=== PATIENT | male | born 1950 | race Caucasian/White ===

== ENCOUNTER → 2017-02-12 | Outpatient (CLI) | payer MEDICARE, OTHER ==
--- NOTE | 2017-02-12 10:36 | XR ---
EXAMINATION TYPE: XR hand complete LT DATE OF EXAM: 02/12/2017 CLINICAL HISTORY: Palmar left hand pain with no known injury. TECHNIQUE: Frontal, lateral and oblique images of the left hand are obtained. COMPARISON: None. FINDINGS: There is no acute fracture/dislocation evident in the left hand. Mild bony productive david ge demonstrated as marginal osteophytes, joint space narrowing and opposing surface sclerosis are see n of the distal interphalangeal joints and first metacarpal phalangeal joint. No erosive changes are appreciated. No erosion of the radial styloid to indicate rheumatoid arthritis. No calcification of t he triangular fibrocartilage. The overlying soft tissue appears unremarkable. IMPRESSION: 1. There is no acute fracture or dislocation in the left hand. 2. 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
== END | disposition home or self-care (01) ==
LOC: RADXRYALE 09:59
PROVIDERS: ATTEND Physician Assistant Medical
DX: M79.642 Pain in left hand (principal)

== ENCOUNTER → 2017-04-23 | Outpatient (CLI) | payer MEDICARE, OTHER ==
--- NOTE | 2017-04-23 11:24 | XR ---
EXAMINATION TYPE: XR shoulder complete LT DATE OF EXAM: 04/23/2017 CLINICAL HISTORY: Shoulder pain after fall on ice 6 weeks ago TECHNIQUE: Three views of the left shoulder are obtained. COMPARISON: None. FINDINGS: There is no acute fracture/dislocation evident in the left shoulder. The acromioclavicula r and glenohumeral joint spaces appear within normal limits. The visualized ribs are intact and unre markable. Mild left acromioclavicular arthropathy is noted as small marginal osteophytes. IMPRESSION: 1. No acute fracture or dislocation in the left shoulder. If pain persists MRI could be performed to evaluate the rotator cuff. 2. Mild left acromioclavicular arthropathy.
== END | disposition home or self-care (01) ==
LOC: RADXRYALE 09:49
PROVIDERS: ATTEND Physician Assistant Medical
DX: M12.812 Other specific arthropathies, not elsewhere classified, left shoulder (principal)

== ENCOUNTER → 2017-08-27 | Outpatient (CLI) | payer MEDICARE, OTHER ==
--- NOTE | 2017-08-27 14:03 | US ---
EXAMINATION TYPE: US venous doppler duplex LE RT DATE OF EXAM: 08/27/2017 1:50 PM COMPARISON: NONE CLINICAL HISTORY: M79.604 Pain in right leg,R60.9 Edema. SIDE PERFORMED: Right TECHNIQUE: The lower extremity deep venous system is examined utilizing real time linear array sonog elmer with graded compression, doppler sonography and color-flow sonography. VESSELS IMAGED: External Iliac Vein (EIV) Common Femoral Vein Deep Femoral Vein Greater Saphenous Vein * Femoral Vein Popliteal Vein Small Saphenous Vein * Proximal Calf Veins (* superficial vessels) Grayscale, color doppler, spectral doppler imaging performed of the deep veins of the lower extremity . There is normal flow, compressibility, vascular waveforms. Right Leg: Negative for DVT Negative result called to Mya in office as 1350 as per order. IMPRESSION: No evidence for DVT at this time.
== END | disposition home or self-care (01) ==
LOC: RADUSWWP 13:23
PROVIDERS: ATTEND Family Medicine
DX: M79.604 Pain in right leg (principal); R60.9 Edema, unspecified

== ENCOUNTER → 2018-07-22 | Outpatient (CLI) | payer MEDICARE, OTHER ==
--- NOTE | 2018-07-22 16:17 | XR ---
EXAMINATION TYPE: XR Hip Complete RT DATE OF EXAM: 07/22/2018 COMPARISON: 09/13/2011 HISTORY: Right hip pain fall 3 weeks prior TECHNIQUE: 2 view right hip FINDINGS: Some joint space narrowing is present. No acute fractures are evident. Femoral head articul ates with the acetabulum. IMPRESSION: 1. No fracture right hip.
== END | disposition home or self-care (01) ==
LOC: RADXRYALE 09:55
PROVIDERS: ATTEND Physician Assistant Medical
DX: M25.551 Pain in right hip (principal)
CPT/HCPCS: 73502

== ENCOUNTER → 2019-09-29 | Outpatient (CLI) | payer MEDICARE, OTHER ==
--- NOTE | 2019-09-29 09:49 | XR ---
EXAMINATION TYPE: XR tibia fibula RT DATE OF EXAM: 09/29/2019 CLINICAL HISTORY: pain TECHNIQUE: AP and lateral images of the right tibia and fibula are obtained. COMPARISON: None. FINDINGS: There is no acute fracture/dislocation evident. The joint spaces appear within normal gaines its. The overlying soft tissue appears unremarkable. IMPRESSION: There is no acute fracture or dislocation seen. ICD 10 NO FRACTURE, INITIAL EVALUATION
== END | disposition home or self-care (01) ==
LOC: RADXRYALE 08:58
PROVIDERS: ATTEND Physician Assistant Medical
DX: S80.921A Unspecified superficial injury of right lower leg, initial encounter (principal); S81.801A Unspecified open wound, right lower leg, initial encounter

== ENCOUNTER 2020-05-26 18:31 | Inpatient (IN) | payer MEDICARE, OTHER ==
[2020-05-26] MEDS ORDERED: SODIUM CHLORIDE 0.9% 1,000 ML IV STA (19:08)
--- NOTE | 2020-05-26 19:16 | ED ---
General Adult HPI - General Chief complaint: Abdominal Pain Stated complaint: Altered, Male Gu Time Seen by Provider: 05/26/20 18:50 Source: patient, family, RN notes reviewed, old records reviewed Mode of arrival: wheelchair Limitations: no limitations - History of Present Illness Initial comments: 69-year-old male presenting for evaluation of dysuria, urinary frequency. Patient was started on Macrobid on Friday of this week. He's continued to h ave flank pain, subjective fever and chills. He's had urinary frequency and urgency as well as dysuria for the past several weeks. She feels that she can't completely empty his bladder. Denies vomiting. Denies measured fever. - Related Data Allergies Allergy/AdvReac Type Severity Reaction Status Date / Time Sulfa (Sulfonamide Allergy Unknown Verified 05/26/20 18:49 Antibiotics) Review of Systems ROS Statement: Those systems with pertinent positive or pertinent negative responses have been documented in the HPI. ROS Other: All systems not noted in ROS Statement are negative. Past Medical History Past Medical History: Coronary Artery Disease (CAD), Diabetes Mellitus, Hyperlipidemia, Hypertension, Myocardial Infarction (HI) History of Any Multi-Drug Resistant Organisms: None Reported Past Surgical History: Heart Catheterization Past Psychological History: No Psychological Hx Reported Smoking Status: Former smoker Past Alcohol Use History: None Reported Past Drug Use History: None Reported General Exam Limitations: no limitations General appearance: alert, in no apparent distress Head exam: Present: atraumatic, normocephalic Eye exam: Present: normal appearance ENT exam: Present: normal exam Neck exam: Present: normal inspection. Absent: tenderness, meningismus Respiratory exam: Present: normal lung sounds bilaterally. Absent: respiratory distress, wheezes Cardiovascular Exam: Present: regular rate, normal rhythm GI/Abdominal exam: Present: soft, distended. Absent: tenderness, guarding Extremities exam: Present: normal inspection, normal capillary refill. Absent: pedal edema Back exam: Present: CVA tenderness (R) Neurological exam: Present: alert, oriented X3, CN II-XII intact. Absent: motor sensory deficit Psychiatric exam: Present: normal affect, normal mood Skin exam: Present: warm, dry, intact. Absent: cyanosis, diaphoretic Course Vital Signs 05/26/20 18:43 Temperature 98.9 F Pulse Rate 96 Respiratory 20 Rate Blood Pressure 127/80 O2 Sat by Pulse 96 Oximetry Medical Decision Making - Medical Decision Making 69-year-old male with chief complaint of dysuria, urinary frequency and urgency. Patient is retaining urine with a bladder scan of the x-ray 500 mL. He's had some flank pain as well as subjective fever and chills. Laboratory studies and urinalysis are obtained. Patient is started on normal saline. He has normal CBC, his get significant L abnormalities including a sodium 114 which I suspect is pseudohyponatremia secondary to elevated blood glucose level which is 1298. He is mildly hyperkalemic at 5.6. He has a creatinine of 2.0. Mild lactic acid of 2.5. Urinalysis consistent with UTI. He started on Rocephin awaiting culture results. He's given IV fluid and started on IV insulin. He will be admitted to the ICU. Case discussed with Amelie hernandez for [facility] hospitalists and with Dr. Carlos hernandez for the ICU. - Lab Data Result diagrams: 05/26/20 19:18 05/26/20 19:18 Lab Results 05/26/20 05/26/20 05/26/20 Range/Units 19:01 19:18 19:18 WBC 10.0 (3.8-10.6) k/uL RBC 4.89 (4.30-5.90) m/uL Hgb 15.6 (13.0-17.5) gm/dL Hct 50.2 (39.0-53.0) % MCV 102.6 H (80.0-100.0) fL MCH 32.0 (25.0-35.0) pg MCHC 31.2 (31.0-37.0) g/dL RDW 12.3 (11.5-15.5) % Plt Count 289 (150-450) k/uL MPV 8.6 Neutrophils % 81 % Lymphocytes % 7 % Monocytes % 9 % Eosinophils % 0 % Basophils % 1 % Neutrophils # 8.1 H (1.3-7.7) k/uL Lymphocytes # 0.7 L (1.0-4.8) k/uL Monocytes # 0.9 (0-1.0) k/uL Eosinophils # 0.0 (0-0.7) k/uL Basophils # 0.1 (0-0.2) k/uL Hypochromasia Slight Macrocytosis Slight Sodium 114 L* (137-145) mmol/L Potassium 5.6 H (3.5-5.1) mmol/L Chloride 76 L (98-107) mmol/L Carbon Dioxide 27 (22-30) mmol/L Anion Gap 11 mmol/L BUN 31 H (9-20) mg/dL Creatinine 2.00 H (0.66-1.25) mg/dL Est GFR (CKD-EPI)AfAm 39 (>60 ml/min/1.73 sqM) Est GFR (CKD-EPI)NonAf 34 (>60 ml/min/1.73 sqM) Glucose 1298 H* (74-99) mg/dL Plasma Lactic Acid Lambert (0.7-2.0) mmol/L Calcium 9.3 (8.4-10.2) mg/dL Total Bilirubin 1.0 (0.2-1.3) mg/dL AST 20 (17-59) U/L ALT 25 (4-49) U/L Alkaline Phosphatase 125 (38-126) U/L Total Protein 6.1 L (6.3-8.2) g/dL Albumin 3.2 L (3.5-5.0) g/dL Urine Color Colorless Urine Appearance Cloudy (Clear) Urine pH 6.5 (5.0-8.0) Ur Specific Flushing 1.017 (1.001-1.035) Urine Protein Trace H (Negative) Urine Glucose (UA) 4+ H (Negative) Urine Ketones Negative (Negative) Urine Blood Moderate H (Negative) Urine Nitrite Negative (Negative) Urine Bilirubin Negative (Negative) Urine Urobilinogen <2.0 (<2.0) mg/dL Ur Leukocyte Esterase Large H (Negative) Urine RBC 4 (0-5) /hpf Urine WBC >182 H (0-5) /hpf Urine WBC Clumps Moderate H (None) /hpf Urine Bacteria Rare H (None) /hpf Urine Mucus Rare H (None) /hpf Urine Yeast (Budding) Occasional H (None) /hpf 05/26/20 Range/Units 19:18 WBC (3.8-10.6) k/uL RBC (4.30-5.90) m/uL Hgb (13.0-17.5) gm/dL Hct (39.0-53.0) % MCV (80.0-100.0) fL MCH (25.0-35.0) pg MCHC (31.0-37.0) g/dL RDW (11.5-15.5) % Plt Count (150-450) k/uL MPV Neutrophils % % Lymphocytes % % Monocytes % % Eosinophils % % Basophils % % Neutrophils # (1.3-7.7) k/uL Lymphocytes # (1.0-4.8) k/uL Monocytes # (0-1.0) k/uL Eosinophils # (0-0.7) k/uL Basophils # (0-0.2) k/uL Hypochromasia Macrocytosis Sodium (137-145) mmol/L Potassium (3.5-5.1) mmol/L Chloride (98-107) mmol/L Carbon Dioxide (22-30) mmol/L Anion Gap mmol/L BUN (9-20) mg/dL Creatinine (0.66-1.25) mg/dL Est GFR (CKD-EPI)AfAm (>60 ml/min/1.73 sqM) Est GFR (CKD-EPI)NonAf (>60 ml/min/1.73 sqM) Glucose (74-99) mg/dL Plasma Lactic Acid Lambert 2.5 H* (0.7-2.0) mmol/L Calcium (8.4-10.2) mg/dL Total Bilirubin (0.2-1.3) mg/dL AST (17-59) U/L ALT (4-49) U/L Alkaline Phosphatase (38-126) U/L Total Protein (6.3-8.2) g/dL Albumin (3.5-5.0) g/dL Urine Color Urine Appearance (Clear) Urine pH (5.0-8.0) Ur Specific Flushing (1.001-1.035) Urine Protein (Negative) Urine Glucose (UA) (Negative) Urine Ketones (Negative) Urine Blood (Negative) Urine Nitrite (Negative) Urine Bilirubin (Negative) Urine Urobilinogen (<2.0) mg/dL Ur Leukocyte Esterase (Negative) Urine RBC (0-5) /hpf Urine WBC (0-5) /hpf Urine WBC Clumps (None) /hpf Urine Bacteria (None) /hpf Urine Mucus (None) /hpf Urine Yeast (Budding) (None) /hpf Critical Care Time Critical Care Time: Yes Total Critical Care Time: 35 Disposition Clinical Impression: Hyperglycemia, Hyponatremia, Acute kidney injury, UTI (urinary tract infection) Disposition: ADMITTED IP TO THIS [facility] Condition: Stable Is patient prescribed a controlled substance at d/c from ED?: No Referrals: Gabriel Boyle DO [Primary Care Provider] - 1-2 days Decision to Admit Reason: Admit from EC Decision Date: 05/26/20 Decision Time: 20:34
[2020-05-26 19:19] LABS: Appearance,Urine Cloudy (Clear); Bacteria,Urine Rare /hpf; Bilirubin,Urine Negative (Negative); Blood,Urine Moderate (Negative); Budding Yeast,Urine Occasional /hpf; Color,Urine Colorless; Glucose,Urine (UA) 4+ (Negative); Ketones,Urine Negative (Negative); Leukocyte Esterase,Urine Large (Negative); Mucus,Urine Rare /hpf; Nitrite,Urine Negative (Negative); PH, Urine 6.5 (5.0-8.0); Protein,Urine Trace (Negative); RBC,Urine 4 /hpf (0-5); Specific Gravity,Urine 1.017 (1.001-1.035); Urobilinogen,Urine <2.0 mg/dL (<2.0); WBC,Urine >182 /hpf (0-5)
[2020-05-26 19:30] LABS: Basophils # (A) 0.1 k/uL (0-0.2); Basophils % (A) 1 %; Eosinophils % (A) 0 %; HCT 50.2 % (39.0-53.0); HGB 15.6 gm/dL (13.0-17.5); Hypochromasia Slight; Lymphocytes # (A) 0.7 k/uL (1.0-4.8); Lymphocytes % (A) 7 %; MCHC 31.2 g/dL (31.0-37.0); MCV 102.6 fL (80.0-100.0); Macrocytosis Slight; Mean Platelet Volume 8.6; Monocytes # (A) 0.9 k/uL (0-1.0); Monocytes % (A) 9 %; Neutrophils # (A) 8.1 k/uL (1.3-7.7); Neutrophils % (A) 81 %; Platelet Count 289 k/uL (150-450); RBC 4.89 m/uL (4.30-5.90); RDW 12.3 % (11.5-15.5)
[2020-05-26 19:42] LABS: Albumin 3.2 g/dL (3.5-5.0); Calcium 9.3 mg/dL (8.4-10.2); Potassium 5.6 mmol/L (3.5-5.1); Total Protein 6.1 g/dL (6.3-8.2)
[2020-05-26] MEDS ORDERED: cefTRIAXone IN SWFI 1,000 MG/10 ML SYRINGE IVP STA (20:19)
[2020-05-26] MEDS ORDERED: INSULIN REGULAR BOLUS (FROM DRIP BAG) IV ONE (20:30)
[2020-05-26 21:02] LABS: Glucose,Whole Blood >600 mg/dL (75-99)
[2020-05-26] MEDS: INSULIN REGULAR 100 UNIT in SODIUM CHLORIDE 0.9% 100 ML IV SCH (21:03)
[2020-05-26] MEDS: SODIUM CHLORIDE 0.9% 1,000 ML IV SCH (21:03)
[2020-05-26 22:10] LABS: Glucose,Whole Blood >600 mg/dL (75-99)
[2020-05-26] MEDS ORDERED: NALOXONE 0.4 MG/ML 1 ML VIAL IV PRN (23:13)
[2020-05-27 00:27] LABS: Phosphorus 3.6 mg/dL (2.5-4.5); Potassium 4.7 mmol/L (3.5-5.1)
[2020-05-27 02:00] LABS: Glucose,Whole Blood 298 mg/dL (75-99)
[2020-05-27] MEDS ORDERED: Potassium Replacement Protocol 1 EACH MISC MISCELLANE PRN (02:19)
[2020-05-27] MEDS ORDERED: Magnesium Replacement Protocol 1 EACH MISC MISCELLANE PRN (02:19)
[2020-05-27] MEDS ORDERED: D5-0.45% NACL WITH KCL 20MEQ/L 1,000 ML IV SCH (02:30)
[2020-05-27 03:13] LABS: Glucose,Whole Blood 217 mg/dL (75-99)
[2020-05-27 03:45] LABS: Phosphorus 3.5 mg/dL (2.5-4.5); Potassium 4.2 mmol/L (3.5-5.1)
[2020-05-27 04:17] LABS: Glucose,Whole Blood 182 mg/dL (75-99)
[2020-05-27 05:16] LABS: Glucose,Whole Blood 210 mg/dL (75-99)
[2020-05-27 05:51] LABS: Basophils # (A) 0.1 k/uL (0-0.2); Basophils % (A) 1 %; Eosinophils # (A) 0.1 k/uL (0-0.7); Eosinophils % (A) 1 %; HCT 43.8 % (39.0-53.0); HGB 14.9 gm/dL (13.0-17.5); Lymphocytes # (A) 1.5 k/uL (1.0-4.8); Lymphocytes % (A) 13 %; MCH 31.5 pg (25.0-35.0); Mean Platelet Volume 7.8; Monocytes # (A) 0.9 k/uL (0-1.0); Monocytes % (A) 8 %; Neutrophils # (A) 8.7 k/uL (1.3-7.7); Neutrophils % (A) 75 %; Platelet Count 318 k/uL (150-450); RBC 4.73 m/uL (4.30-5.90); RDW 12.6 % (11.5-15.5); WBC 11.6 k/uL (3.8-10.6)
[2020-05-27 05:59] LABS: Potassium 4.7 mmol/L (3.5-5.1)
[2020-05-27 06:01] LABS: MCV 92.6 fL (80.0-100.0)
[2020-05-27 06:19] LABS: Glucose,Whole Blood 118 mg/dL (75-99)
[2020-05-27] MEDS: SODIUM CHLORIDE 0.9% 1,000 ML IV SCH ×2 (06:49→16:52)
[2020-05-27 07:16] LABS: Glucose,Whole Blood 141 mg/dL (75-99)
[2020-05-27 09:09] LABS: Glucose,Whole Blood 228 mg/dL (75-99)
[2020-05-27 11:20] LABS: Glucose,Whole Blood 232 mg/dL (75-99)
[2020-05-27] MEDS: INSULIN ASPART (NovoLOG) 100 UNIT/ML VIAL SQ SCH ×3 (11:35→21:13)
[2020-05-27 11:59] LABS: Calcium 9.6 mg/dL (8.4-10.2); Potassium 5.5 mmol/L (3.5-5.1)
[2020-05-27] MEDS: INSULIN REGULAR 100 UNIT in SODIUM CHLORIDE 0.9% 100 ML IV SCH (12:11)
--- NOTE | 2020-05-27 13:08 | P.CNPUL ---
History of Present Illness Consult date: 05/27/20 Requesting physician: Fady Bran Reason for consult: other (Critical care management) Chief complaint: Difficulty urinating History of present illness: This is a pleasant 69-year-old male patient who follows with Dr. calixto ricks as his primary care provider. He has a history of atrial fibrillation, anticoagulated with Eliquis, diabetes mellitus, coronary artery disease, hyperlipidemia, hypertension, former smoker. Earlier this week he was having trouble with difficulty urinating with pain and frequency. Initiated on Macrobid on 05/24/2020. He presented here to the emergency room yesterday complaints of urinary symptoms and difficulty emptying his bladder. Urinalysis revealed moderate blood, moderate WBCs in clumps, trace protein. 4+ glucose. His blood glucose level was found to be 1298. He is normally on Januvia, Farxiga, Glucotrol and Actos in the outpatient setting. Initial sodium 114. Lactic acid 4.3. He was admitted to the intensive care unit where consulted for the same. He is seen today in the ICU. He is awake alert and oriented 3. He was initiated on an insulin drip. His blood sugars have improved to 141 currently. Sodium of 129. Lactic acid improved to 2.2. 0.9 normal saline at KVO. He is maintaining good O2 saturations in the upper 90s on room air. He's been afebrile. Hemodynamically stable. Review of Systems REVIEW OF SYSTEMS: CONSTITUTIONAL: Denies any recent significant weight loss or weight gain. EYES: Denies change in vision. EARS, NOSE, MOUTH, THROAT: Denies headaches, denies sore throat. CARDIOVASCULAR: Denies chest pain, palpitations or syncopal episodes. RESPIRATORY: Denies shortness of breath, cough, congestion or hemoptysis. GASTROINTESTINAL: Denies change in appetite, denies abdominal pain GENITOURINARY: Positive for dysuria, urgency, frequency. MUSKULOSKELETAL: Denies pain, denies swelling. INTEGUMENTARY: Denies rash, denies eczema. NEUROLOGICAL: Denies recent memory loss, no recent seizure activity. PSYCHIATRIC: Denies anxiety, denies depression. HEMATOLOGIC/LYMPHATIC: Denies anemia, denies enlarged lymph nodes. Past Medical History Past Medical History: Coronary Artery Disease (CAD), Diabetes Mellitus, Hyperlipidemia, Hypertension, Myocardial Infarction (CO) Last Myocardial Infarction Date:: 1972 History of Any Multi-Drug Resistant Organisms: None Reported Past Surgical History: Heart Catheterization Additional Past Anesthesia/Blood Transfusion Reaction / Comment(s): No previous transfusion Past Psychological History: No Psychological Hx Reported Smoking Status: Current every day smoker Past Alcohol Use History: None Reported Past Drug Use History: None Reported Medications and Allergies Home Medications Medication Instructions Recorded Confirmed Type Apixaban [Eliquis] 5 mg PO BID 05/26/20 05/26/20 History Atorvastatin Calcium [Lipitor] 80 mg PO HS 05/26/20 05/26/20 History Dapagliflozin Propanediol [Farxiga] 10 mg PO DAILY 05/26/20 05/26/20 History Enalapril [Vasotec] 5 mg PO BID 05/26/20 05/26/20 History Isosorbide Mononitrate [Isosorbide 30 mg PO DAILY 05/26/20 05/26/20 History Mononitrate ER] Metoprolol Tartrate [Lopressor] 50 mg PO BID 05/26/20 05/26/20 History Nitrofurantoin Monohyd/M-Cryst 100 mg PO Q12HR 05/26/20 05/26/20 History [Macrobid] Pioglitazone [Actos] 45 mg PO DAILY 05/26/20 05/26/20 History Sertraline HCl [Zoloft] 100 mg PO DAILY 05/26/20 05/26/20 History glipiZIDE XL [Glucotrol Xl] 10 mg PO BID 05/26/20 05/26/20 History sitaGLIPtin PHOSPHATE [Januvia] 100 mg PO DAILY 05/26/20 05/26/20 History Allergies Allergy/AdvReac Type Severity Reaction Status Date / Time Sulfa (Sulfonamide Allergy Unknown Verified 05/26/20 21:02 Antibiotics) Physical Exam Vitals: Vital Signs Temp Pulse Pulse Pulse Resp BP BP 05/27/20 11:54 98.5 F 103 H 18 113/72 05/27/20 10:00 110 H 26 H 100/63 05/27/20 09:00 98.1 F 98 15 108/68 05/27/20 08:00 98 27 H 101/51 05/27/20 07:00 98 29 H 97/56 05/27/20 06:00 92 24 104/68 05/27/20 05:00 96 25 H 120/93 05/27/20 04:00 98 F 99 21 112/69 05/27/20 03:00 92 25 H 104/76 05/27/20 02:00 95 30 H 107/75 05/27/20 01:00 96 27 H 91/62 05/27/20 00:00 98.4 F 93 17 90/75 05/26/20 23:00 98 24 115/83 05/26/20 21:30 98.6 F 92 18 05/26/20 20:55 98.1 F 101 H 20 115/83 05/26/20 20:35 98.0 F 98 16 135/95 05/26/20 18:43 98.9 F 96 20 127/80 Pulse Ox 05/27/20 11:54 05/27/20 10:00 98 05/27/20 09:00 98 05/27/20 08:00 05/27/20 07:00 96 05/27/20 06:00 96 05/27/20 05:00 97 05/27/20 04:00 96 05/27/20 03:00 97 05/27/20 02:00 96 05/27/20 01:00 96 05/27/20 00:00 95 05/26/20 23:00 95 05/26/20 21:30 95 05/26/20 20:55 95 05/26/20 20:35 96 05/26/20 18:43 96 Intake and Output 05/26/20 05/27/20 05/27/20 22:59 06:59 14:59 Intake Total 100 273.464 220 Output Total 150 700 300 Balance -50 -426.536 -80 Intake: IV 100 200 220 Sodium Chloride 0.9% 1, 100 200 220 000 ml @ 100 mls/hr IV . Q10H INOCENCIO Rx#:[id number] Intake, IV Titration 73.464 Amount Insulin Regular 100 unit 73.464 In Sodium Chloride 0.9% 100 ml @ 0.1 UNITS/KG/HR 10.72 mls/hr IV .Q9H26M INOCENCIO Rx#:[id number] Output: Urine 150 700 300 Other: Voiding Method Indwelling Catheter Indwelling Catheter Weight 106.141 kg 100.9 kg GENERAL EXAM: Alert, pleasant 69-year-old gentleman, on room air, comfortable in no apparent distress. HEAD: Normocephalic. EYES: Normal reaction of pupils, equal size. NOSE: Clear with pink turbinates. THROAT: No erythema or exudates. NECK: No masses, no JVD. CHEST: No chest wall deformity. LUNGS: Equal air entry with no crackles, wheeze, rhonchi or dullness. CVS: S1 and S2 normal with no audible murmur, regular rhythm. ABDOMEN: No hepatosplenomegaly, normal bowel sounds, no guarding or rigidity. SPINE: No scoliosis or deformity SKIN: No rashes CENTRAL NERVOUS SYSTEM: No focal deficits, tone is normal in all 4 extremities. EXTREMITIES: There is no peripheral edema. No clubbing, no cyanosis. Peripheral pulses are intact. Results - Laboratory Findings CBC and BMP: 05/27/20 05:35 05/27/20 11:27 Abnormal lab findings: Abnormal Labs 05/26/20 05/26/20 05/26/20 19:01 19:18 19:18 WBC MCV 102.6 H Neutrophils # 8.1 H Lymphocytes # 0.7 L Sodium 114 L* Potassium 5.6 H Chloride 76 L Carbon Dioxide BUN 31 H Creatinine 2.00 H Glucose 1298 H* POC Glucose (mg/dL) Plasma Lactic Acid Lambert Total Protein 6.1 L Albumin 3.2 L Urine Protein Trace H Urine Glucose (UA) 4+ H Urine Blood Moderate H Ur Leukocyte Esterase Large H Urine WBC >182 H Urine WBC Clumps Moderate H Urine Bacteria Rare H Urine Mucus Rare H Urine Yeast (Budding) Occasional H 05/26/20 05/26/20 05/26/20 19:18 21:00 22:09 WBC MCV Neutrophils # Lymphocytes # Sodium Potassium Chloride Carbon Dioxide BUN Creatinine Glucose POC Glucose (mg/dL) >600 H >600 H Plasma Lactic Acid Lambetr 2.5 H* Total Protein Albumin Urine Protein Urine Glucose (UA) Urine Blood Ur Leukocyte Esterase Urine WBC Urine WBC Clumps Urine Bacteria Urine Mucus Urine Yeast (Budding) 05/26/20 05/26/20 05/27/20 23:38 23:38 01:58 WBC MCV Neutrophils # Lymphocytes # Sodium 125 L Potassium Chloride 86 L Carbon Dioxide BUN 31 H Creatinine 2.05 H Glucose 617 H* POC Glucose (mg/dL) 298 H Plasma Lactic Acid Lambert 4.3 H* Total Protein Albumin Urine Protein Urine Glucose (UA) Urine Blood Ur Leukocyte Esterase Urine WBC Urine WBC Clumps Urine Bacteria Urine Mucus Urine Yeast (Budding) 05/27/20 05/27/20 05/27/20 03:11 03:22 03:22 WBC MCV Neutrophils # Lymphocytes # Sodium 128 L Potassium Chloride 88 L Carbon Dioxide 31 H BUN 32 H Creatinine 1.97 H Glucose 177 H POC Glucose (mg/dL) 217 H Plasma Lactic Acid Lambert 3.3 H* Total Protein Albumin Urine Protein Urine Glucose (UA) Urine Blood Ur Leukocyte Esterase Urine WBC Urine WBC Clumps Urine Bacteria Urine Mucus Urine Yeast (Budding) 05/27/20 05/27/20 05/27/20 04:15 05:15 05:35 WBC MCV Neutrophils # Lymphocytes # Sodium 128 L Potassium Chloride 90 L Carbon Dioxide 32 H BUN 33 H Creatinine 1.91 H Glucose 126 H POC Glucose (mg/dL) 182 H 210 H Plasma Lactic Acid Lambert Total Protein Albumin Urine Protein Urine Glucose (UA) Urine Blood Ur Leukocyte Esterase Urine WBC Urine WBC Clumps Urine Bacteria Urine Mucus Urine Yeast (Budding) 05/27/20 05/27/20 05/27/20 05:35 06:17 06:44 WBC 11.6 H MCV Neutrophils # 8.7 H Lymphocytes # Sodium Potassium Chloride Carbon Dioxide BUN Creatinine Glucose POC Glucose (mg/dL) 118 H Plasma Lactic Acid Lambert 2.2 H* Total Protein Albumin Urine Protein Urine Glucose (UA) Urine Blood Ur Leukocyte Esterase Urine WBC Urine WBC Clumps Urine Bacteria Urine Mucus Urine Yeast (Budding) 05/27/20 05/27/20 05/27/20 07:14 09:08 11:19 WBC MCV Neutrophils # Lymphocytes # Sodium Potassium Chloride Carbon Dioxide BUN Creatinine Glucose POC Glucose (mg/dL) 141 H 228 H 232 H Plasma Lactic Acid Lambert Total Protein Albumin Urine Protein Urine Glucose (UA) Urine Blood Ur Leukocyte Esterase Urine WBC Urine WBC Clumps Urine Bacteria Urine Mucus Urine Yeast (Budding) 05/27/20 11:27 WBC MCV Neutrophils # Lymphocytes # Sodium 129 L Potassium 5.5 H Chloride 91 L Carbon Dioxide 33 H BUN 34 H Creatinine 1.83 H Glucose 258 H POC Glucose (mg/dL) Plasma Lactic Acid Lambert Total Protein Albumin Urine Protein Urine Glucose (UA) Urine Blood Ur Leukocyte Esterase Urine WBC Urine WBC Clumps Urine Bacteria Urine Mucus Urine Yeast (Budding) - Diagnostic Findings Chest x-ray: image reviewed Assessment and Plan Assessment: 1 Acute urinary tract infection, on Macrobid in the outpatient setting, culture pending 2 Hyperglycemia with initial blood glucose 1298, improved 3 Lactic Acidosis, recovered 4 Hyponatremia, improved 5 Acute renal failure 6 History of atrial fibrillation, anticoagulated with Eliquis 7 Coronary artery disease 8 Diabetes mellitus 9 Hyperlipidemia 10 Hypertension 12 Former smoker Plan: The patient was seen and evaluated by Dr. Gonzalez Increased 0.9 normal saline 200 ML's per hour. ADA consistent carbohydrate diet Sliding scale with Humalog for coverage Initiate ceftriaxone Await urine cultures Transfer out of the ICU Follow-up labs a.m. We'll continue to follow and make further recommendations based on his clinical status I, the cosigning physician, performed a history & physical examination of the patient. Lungs sounds are clear. Maintaining good O2 saturations in the 90s on room air. I discussed the assessment and plan of care with my nurse practitioner, Autumn Kapoor. I attest to the above consultation as dictated by her. Time with Patient: Greater than 30
--- NOTE | 2020-05-27 15:00 | CONS ---
CONSULTATION REASON FOR CONSULT: Hyponatremia. HISTORY OF PRESENT ILLNESS: Patient is a 69-year-old male who was admitted to the hospital with mental status changes. He was brought in by family for increased weakness and blood sugar was noted to be elevated at more than 600. The patient was recently treated for urinary tract infection as outpatient. He was on Macrobid. Blood glucose level was 1298 on initial admission and initial sodium was at 114. The patient has been on insulin drip and his serum sodium had improved to 125 after about four hours post admission. At that time patient was on normal saline along with insulin drip. Serum sodium further increased to 128 and the saline was discontinued. Currently patient has been eating. He denies any nausea, vomiting or abdominal pain. Maintained on antibiotics for UTI. Lactic acid was elevated at 2.5, increased to 4.3 and now back down to 2.2. Serum creatinine was around 2 mg/dL on admission, it is now down to 1.8. Previous creatinine 1.0 on 02/25/2019. The patient's blood pressure was initially low, currently not significantly low and his potassium this morning was 5.5. Patient currently has an indwelling Nunn catheter with urine output at about 75-100 mL an. PAST MEDICAL HISTORY: Type 2 diabetes, hypertension, coronary artery disease, hyperlipidemia, history of DC. PAST SURGICAL HISTORY: Cardiac catheterization. SOCIAL HISTORY: Positive for smoking. No history of drug abuse or alcohol abuse. MEDICATIONS: Medications prior to admission included Lipitor, Eliquis, basal attack, Lopressor, Macrobid, Actos, Zoloft, Glucotrol, Januvia. ALLERGIES: Include SULFA. REVIEW OF SYSTEMS: As per HPI. Other systems negative. EXAMINATION: The patient is awake, comfortable. He is not in any acute distress. Blood pressure is 100/63, heart rate 110 per minute, patient is afebrile. Examination of the heart S1, S2. Examination of the lungs, bilateral breath sounds are heard. Abdomen is soft, nontender. Examination of lower extremities shows no significant edema. 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 LAB: Show sodium 129, potassium 5.5, chloride 91, CO2 is 31, BUN 34, serum creatinine 1.83. Lactic acid was 2.2, calcium 9.6. ASSESSMENT: 1. Acute kidney injury, mostly associated with volume depletion, low blood pressure, currently improving. The patient is nonoliguric. He received IV fluids initially, however, they were subsequently held secondary to the severe hyponatremia. UA shows trace protein and evidence of pyuria suggestive of underlying urinary tract infection. Check ultrasound of the kidneys. 2. Hyponatremia associated with severe hyperglycemia, currently corrected. Given the significant hyperglycemia and serum sodium of 114, I allowed the sodium to increase to 125 as the serum glucose decreased, however, subsequently it increased to 128 and that is when the IV fluids were discontinued. I will recheck another sodium level in 3-4 hours and we can resume IV fluids if his serum sodium is not rapidly further. 3. Mild hyperkalemia associated with acute kidney injury, however, no evidence of acidosis and patient currently has a Nunn catheter. 4. Urinary tract infection. Urine culture is pending, maintained on Rocephin. 5. Mental status changes secondary to severe hyperglycemia, now improved. 6. Rule out chronic kidney disease. PLAN: Encourage increased oral intake. Add saline and repeat sodium in about 4-6 hours. Continue with antibiotics. Monitor blood sugars. Maintain low-potassium diet as well. Thank you for this consultation. We will continue to follow the patient with you during his hospitalization. MMODL / IJN: [id number] /
--- NOTE | 2020-05-27 15:19 | US ---
EXAMINATION TYPE: US kidneys/renal and bladder DATE OF EXAM: 05/27/2020 COMPARISON: NONE CLINICAL HISTORY: RF. RF EXAM MEASUREMENTS: Right Kidney: 12.8 x 5.9 x 5.0 cm Left Kidney: 12.8 x 7.2 x 6.5 cm Right Kidney: Hydronephrosis visualized cystic area lower pole 3.4 x 3.0 x 3.3 cm. Left Kidney: Hydronephrosis visualized multiple cystic areas largest lower pole 2.1 x 1.9 x 2.0 cm. Bladder: Hypoechoic area seen measuring 2.9 x 2.6 x 4.1 cm. Thickened bladder wall .9cm. Bilateral Jets seen: No IMPRESSION: There is bilateral hydronephrosis. Increased echogenicity in the dependent urinary bladder could rela te to blood clot or mass. Follow-up recommended. Bilateral renal cortical cysts.
--- NOTE | 2020-05-27 15:52 | P.HPIM ---
History of Present Illness H&P Date: 05/27/20 Chief Complaint: Abdominal pain Patient is a 69-year-old male with a known history of hypertension, diabetes type 2 [id number], hyperlipidemia and history of CA status post cardiac catheterization and currently everyday smoker presents to ER due to complaints of lower abdominal pain and dysuria and increased urinary frequency. Patient is being treated for urinary tract infection with Macrobid since last Friday. Patient continued to have flank pain, lower abdominal pain and fever and chills at home. No complaints of chest pain or shortness of breath. P atient says that he had trouble voiding completely., Denied any recent illnesses otherwise. Patient was found to have sodium level CXIV, potassium 5.6, blood sugar: 98 and BUN 31 and creatinine 2.0 and lactic acid 2.5 on admission Urinalysis showed trace protein and 4+ glucose moderate blood, large leukocyte esterase and elevated WBC count. Covid 19 PCR not detected. Review of Systems Constitutional: Subjective fever and chills. Generalized weakness and malaise.. Abdomen: Patient denied any nausea vomiting. Lower abdominal pain and flank pain. No diarrhea.. Cardiovascular: Patient denies any chest pain or short of breath no palpitations. Respiratory: patient denied any cough is from production. No shortness of breath Neurologic: Patient denied any numbness or tingling headache. Musculoskeletal: Patient denies any complaints of joint swelling or deformity. Skin: Negative Psychiatric: Negative Endocrine: No heat or cold intolerance. No recent weight gain. Genitourinary: Positive dysuria and urinary frequency. No hematuria. All other 14 point ROS negative except the above Past Medical History Past Medical History: Coronary Artery Disease (CAD), Diabetes Mellitus, Hyperlipidemia, Hypertension, Myocardial Infarction (CA) Last Myocardial Infarction Date:: 1972 History of Any Multi-Drug Resistant Organisms: None Reported Past Surgical History: Heart Catheterization Additional Past Anesthesia/Blood Transfusion Reaction / Comment(s): No previous transfusion Past Psychological History: No Psychological Hx Reported Smoking Status: Current every day smoker Past Alcohol Use History: None Reported Past Drug Use History: None Reported Medications and Allergies Home Medications Medication Instructions Recorded Confirmed Type Apixaban [Eliquis] 5 mg PO BID 05/26/20 05/26/20 History Atorvastatin Calcium [Lipitor] 80 mg PO HS 05/26/20 05/26/20 History Dapagliflozin Propanediol [Farxiga] 10 mg PO DAILY 05/26/20 05/26/20 History Enalapril [Vasotec] 5 mg PO BID 05/26/20 05/26/20 History Isosorbide Mononitrate [Isosorbide 30 mg PO DAILY 05/26/20 05/26/20 History Mononitrate ER] Metoprolol Tartrate [Lopressor] 50 mg PO BID 05/26/20 05/26/20 History Nitrofurantoin Monohyd/M-Cryst 100 mg PO Q12HR 05/26/20 05/26/20 History [Macrobid] Pioglitazone [Actos] 45 mg PO DAILY 05/26/20 05/26/20 History Sertraline HCl [Zoloft] 100 mg PO DAILY 05/26/20 05/26/20 History glipiZIDE XL [Glucotrol Xl] 10 mg PO BID 05/26/20 05/26/20 History sitaGLIPtin PHOSPHATE [Januvia] 100 mg PO DAILY 05/26/20 05/26/20 History Allergies Allergy/AdvReac Type Severity Reaction Status Date / Time Sulfa (Sulfonamide Allergy Unknown Verified 05/26/20 21:02 Antibiotics) Physical Exam Vitals: Vital Signs Temp Pulse Pulse Resp BP BP Pulse Ox 05/27/20 10:00 110 H 26 H 100/63 98 05/27/20 09:00 98.1 F 98 15 108/68 98 05/27/20 08:00 98 27 H 101/51 05/27/20 07:00 98 29 H 97/56 96 05/27/20 06:00 92 24 104/68 96 05/27/20 05:00 96 25 H 120/93 97 05/27/20 04:00 98 F 99 21 112/69 96 05/27/20 03:00 92 25 H 104/76 97 05/27/20 02:00 95 30 H 107/75 96 05/27/20 01:00 96 27 H 91/62 96 05/27/20 00:00 98.4 F 93 17 90/75 95 05/26/20 23:00 98 24 115/83 95 05/26/20 21:30 98.6 F 92 18 95 05/26/20 20:55 98.1 F 101 H 20 115/83 95 05/26/20 20:35 98.0 F 98 16 135/95 96 02/19/21 18:43 98.9 F 96 20 127/80 96 Intake and Output 05/26/20 05/27/20 05/27/20 22:59 06:59 14:59 Intake Total 100 273.464 220 Output Total 150 700 300 Balance -50 -426.536 -80 Intake: IV 100 200 220 Sodium Chloride 0.9% 1, 100 200 220 000 ml @ 100 mls/hr IV . Q10H INOC[facility] Rx#:[id number] Intake, IV Titration 73.464 Amount Insulin Regular 100 unit 73.464 In Sodium Chloride 0.9% 100 ml @ 0.1 UNITS/KG/HR 10.72 mls/hr IV .Q9H26M INOCENCIO Rx#:[id number] Output: Urine 150 700 300 Other: Voiding Method Indwelling Catheter Indwelling Catheter Weight 106.141 kg 100.9 kg PHYSICAL EXAMINATION: Patient is lying in the bed comfortably, no acute distress, awake alert and oriented. Patient is lethargic and weak.. HEENT: Normocephalic. Neck is supple. Pupils reactive. Nostrils clear. Oral cavity is moist. Ears reveal no drainage. Neck reveals no JVD, carotid bruits, or thyromegaly. CHEST EXAMINATION: Trachea is central. Symmetrical expansion. Lung seo clear to auscultation and percussion. CARDIAC: Normal S1, S2 with no gallops. No murmurs ABDOMEN: Soft. Bowel sounds normal. No organomegaly. No abdominal bruits. Extremities: reveal no edema. No clubbing or cyanosis Neurologically awake, alert, oriented x3 with well-coordinated movements. No focal deficits noted Skin: No rash or skin lesions. Psychiatric: Coperative. Nonsuicidal Musculoskeletal: No joint swelling or deformity. Normal range of motion. Results CBC & Chem 7: 05/27/20 05:35 05/27/20 11:27 Labs: Abnormal Lab Results - Last 24 Hours (Table) 05/26/20 05/26/20 05/26/20 Range/Units 19:01 19:18 19:18 WBC (3.8-10.6) k/uL MCV 102.6 H (80.0-100.0) fL Neutrophils # 8.1 H (1.3-7.7) k/uL Lymphocytes # 0.7 L (1.0-4.8) k/uL Sodium 114 L* (137-145) mmol/L Potassium 5.6 H (3.5-5.1) mmol/L Chloride 76 L (98-107) mmol/L Carbon Dioxide (22-30) mmol/L BUN 31 H (9-20) mg/dL Creatinine 2.00 H (0.66-1.25) mg/dL Glucose 1298 H* (74-99) mg/dL POC Glucose (mg/dL) (75-99) mg/dL Plasma Lactic Acid Lambert (0.7-2.0) mmol/L Total Protein 6.1 L (6.3-8.2) g/dL Albumin 3.2 L (3.5-5.0) g/dL Urine Protein Trace H (Negative) Urine Glucose (UA) 4+ H (Negative) Urine Blood Moderate H (Negative) Ur Leukocyte Esterase Large H (Negative) Urine WBC >182 H (0-5) /hpf Urine WBC Clumps Moderate H (None) /hpf Urine Bacteria Rare H (None) /hpf Urine Mucus Rare H (None) /hpf Urine Yeast (Budding) Occasional H (None) /hpf 05/26/20 05/26/20 05/26/20 Range/Units 19:18 21:00 22:09 WBC (3.8-10.6) k/uL MCV (80.0-100.0) fL Neutrophils # (1.3-7.7) k/uL Lymphocytes # (1.0-4.8) k/uL Sodium (137-145) mmol/L Potassium (3.5-5.1) mmol/L Chloride (98-107) mmol/L Carbon Dioxide (22-30) mmol/L BUN (9-20) mg/dL Creatinine (0.66-1.25) mg/dL Glucose (74-99) mg/dL POC Glucose (mg/dL) >600 H >600 H (75-99) mg/dL Plasma Lactic Acid Lambert 2.5 H* (0.7-2.0) mmol/L Total Protein (6.3-8.2) g/dL Albumin (3.5-5.0) g/dL Urine Protein (Negative) Urine Glucose (UA) (Negative) Urine Blood (Negative) Ur Leukocyte Esterase (Negative) Urine WBC (0-5) /hpf Urine WBC Clumps (None) /hpf Urine Bacteria (None) /hpf Urine Mucus (None) /hpf Urine Yeast (Budding) (None) /hpf 05/26/20 05/26/20 05/27/20 Range/Units 23:38 23:38 01:58 WBC (3.8-10.6) k/uL MCV (80.0-100.0) fL Neutrophils # (1.3-7.7) k/uL Lymphocytes # (1.0-4.8) k/uL Sodium 125 L (137-145) mmol/L Potassium (3.5-5.1) mmol/L Chloride 86 L (98-107) mmol/L Carbon Dioxide (22-30) mmol/L BUN 31 H (9-20) mg/dL Creatinine 2.05 H (0.66-1.25) mg/dL Glucose 617 H* (74-99) mg/dL POC Glucose (mg/dL) 298 H (75-99) mg/dL Plasma Lactic Acid Lambert 4.3 H* (0.7-2.0) mmol/L Total Protein (6.3-8.2) g/dL Albumin (3.5-5.0) g/dL Urine Protein (Negative) Urine Glucose (UA) (Negative) Urine Blood (Negative) Ur Leukocyte Esterase (Negative) Urine WBC (0-5) /hpf Urine WBC Clumps (None) /hpf Urine Bacteria (None) /hpf Urine Mucus (None) /hpf Urine Yeast (Budding) (None) /hpf 05/27/20 05/27/20 05/27/20 Range/Units 03:11 03:22 03:22 WBC (3.8-10.6) k/uL MCV (80.0-100.0) fL Neutrophils # (1.3-7.7) k/uL Lymphocytes # (1.0-4.8) k/uL Sodium 128 L (137-145) mmol/L Potassium (3.5-5.1) mmol/L Chloride 88 L (98-107) mmol/L Carbon Dioxide 31 H (22-30) mmol/L BUN 32 H (9-20) mg/dL Creatinine 1.97 H (0.66-1.25) mg/dL Glucose 177 H (74-99) mg/dL POC Glucose (mg/dL) 217 H (75-99) mg/dL Plasma Lactic Acid Lambert 3.3 H* (0.7-2.0) mmol/L Total Protein (6.3-8.2) g/dL Albumin (3.5-5.0) g/dL Urine Protein (Negative) Urine Glucose (UA) (Negative) Urine Blood (Negative) Ur Leukocyte Esterase (Negative) Urine WBC (0-5) /hpf Urine WBC Clumps (None) /hpf Urine Bacteria (None) /hpf Urine Mucus (None) /hpf Urine Yeast (Budding) (None) /hpf 05/27/20 05/27/20 05/27/20 Range/Units 04:15 05:15 05:35 WBC (3.8-10.6) k/uL MCV (80.0-100.0) fL Neutrophils # (1.3-7.7) k/uL Lymphocytes # (1.0-4.8) k/uL Sodium 128 L (137-145) mmol/L Potassium (3.5-5.1) mmol/L Chloride 90 L (98-107) mmol/L Carbon Dioxide 32 H (22-30) mmol/L BUN 33 H (9-20) mg/dL Creatinine 1.91 H (0.66-1.25) mg/dL Glucose 126 H (74-99) mg/dL POC Glucose (mg/dL) 182 H 210 H (75-99) mg/dL Plasma Lactic Acid Lambert (0.7-2.0) mmol/L Total Protein (6.3-8.2) g/dL Albumin (3.5-5.0) g/dL Urine Protein (Negative) Urine Glucose (UA) (Negative) Urine Blood (Negative) Ur Leukocyte Esterase (Negative) Urine WBC (0-5) /hpf Urine WBC Clumps (None) /hpf Urine Bacteria (None) /hpf Urine Mucus (None) /hpf Urine Yeast (Budding) (None) /hpf 05/27/20 05/27/20 05/27/20 Range/Units 05:35 06:17 06:44 WBC 11.6 H (3.8-10.6) k/uL MCV (80.0-100.0) fL Neutrophils # 8.7 H (1.3-7.7) k/uL Lymphocytes # (1.0-4.8) k/uL Sodium (137-145) mmol/L Potassium (3.5-5.1) mmol/L Chloride (98-107) mmol/L Carbon Dioxide (22-30) mmol/L BUN (9-20) mg/dL Creatinine (0.66-1.25) mg/dL Glucose (74-99) mg/dL POC Glucose (mg/dL) 118 H (75-99) mg/dL Plasma Lactic Acid Lambert 2.2 H* (0.7-2.0) mmol/L Total Protein (6.3-8.2) g/dL Albumin (3.5-5.0) g/dL Urine Protein (Negative) Urine Glucose (UA) (Negative) Urine Blood (Negative) Ur Leukocyte Esterase (Negative) Urine WBC (0-5) /hpf Urine WBC Clumps (None) /hpf Urine Bacteria (None) /hpf Urine Mucus (None) /hpf Urine Yeast (Budding) (None) /hpf 05/27/20 05/27/20 Range/Units 07:14 09:08 WBC (3.8-10.6) k/uL MCV (80.0-100.0) fL Neutrophils # (1.3-7.7) k/uL Lymphocytes # (1.0-4.8) k/uL Sodium (137-145) mmol/L Potassium (3.5-5.1) mmol/L Chloride (98-107) mmol/L Carbon Dioxide (22-30) mmol/L BUN (9-20) mg/dL Creatinine (0.66-1.25) mg/dL Glucose (74-99) mg/dL POC Glucose (mg/dL) 141 H 228 H (75-99) mg/dL Plasma Lactic Acid Lambert (0.7-2.0) mmol/L Total Protein (6.3-8.2) g/dL Albumin (3.5-5.0) g/dL Urine Protein (Negative) Urine Glucose (UA) (Negative) Urine Blood (Negative) Ur Leukocyte Esterase (Negative) Urine WBC (0-5) /hpf Urine WBC Clumps (None) /hpf Urine Bacteria (None) /hpf Urine Mucus (None) /hpf Urine Yeast (Budding) (None) /hpf Microbiology - Last 24 Hours (Table) 05/26/20 19:01 Urine Culture - Preliminary Urine,Voided Thrombosis Risk Factor Assmnt - DVT/VTE Prophylaxis DVT/VTE Prophylaxis: Pharmacologic Prophylaxis ordered - Choose All That Apply Any of the Below Risk Factors Present?: Yes Each Risk Factor Represents 2 Points: Age 61-74 years Thrombosis Risk Factor Assessment Total Risk Factor Score: 2 Thrombosis Risk Factor Assessment Level: Low Risk Assessment and Plan Assessment: Acute urinary tract infection. Failed outpatient therapy with Macrobid Hyperglycemia with uncontrolled diabetes type 2 [id number] Hyponatremia. Due to Hypovolemic and hyperglycemia Acute kidney injury was likely prerenal Lactic acidosis due to hypovolemia Mild hyperkalemia secondary to acute kidney injury. Improving now Paroxysmal atrial fibrillation on anticoagulation with Eliquis Hypertension Hyperlipidemia Previous history of smoking History of CA status post cardiac catheterization. Obesity DVT prophylaxis with heparin subcu Plan: Patient will be continued on IV hydration and antibiotics in the form of ceftriaxone. Follow up blood cultures and urine culture report. Continue to monitor electrolyte and they'll function. Patient is not on insulin at home. On hypoglycemic agents. Patient will be started on Levemir and insulin sliding scale and follow-up A1c level. Continue with home medications and hold lisinopril due to AKA. Further recommendations based on the clinical course. Time with Patient: Greater than 30
[2020-05-27 16:28] VITALS: BMI 33.8
[2020-05-27 16:45] LABS: Glucose,Whole Blood 306 mg/dL (75-99)
[2020-05-27 18:45] LABS: Potassium 4.1 mmol/L (3.5-5.1)
[2020-05-27 21:01] LABS: Glucose,Whole Blood 393 mg/dL (75-99)
[2020-05-27] MEDS: INSULIN DETEMIR (LEVEMIR) 100 UNIT/ML SYR SQ SCH (21:13)
[2020-05-27] MEDS: APIXABAN 5 MG TAB PO SCH (21:14)
[2020-05-27] MEDS: METOPROLOL TARTRATE 50 MG TAB PO SCH (21:14)
[2020-05-27] MEDS: ATORVASTATIN 80 MG TAB PO SCH (21:14)
[2020-05-27 23:19] LABS: Hemoglobin A1C 15.8 % (4.0-6.0)
[2020-05-28] MEDS: SODIUM CHLORIDE 0.9% 1,000 ML IV SCH (05:30)
[2020-05-28 07:04] LABS: Glucose,Whole Blood 212 mg/dL (75-99)
[2020-05-28] MEDS: INSULIN ASPART (NovoLOG) 100 UNIT/ML VIAL SQ SCH ×6 (07:28→22:25)
[2020-05-28] MEDS: APIXABAN 5 MG TAB PO SCH ×2 (07:28→22:26)
[2020-05-28] MEDS: SERTRALINE 100 MG TAB PO SCH (07:28)
[2020-05-28] MEDS: METOPROLOL TARTRATE 50 MG TAB PO SCH ×2 (07:28→22:26)
[2020-05-28 09:11] LABS: HCT 42.6 % (39.6-50.0); HGB 14.6 g/dL (13.0-17.0); MCH 31.6 pg (27.0-32.0); MCHC 34.3 g/dL (32.0-37.0); MCV 92.2 fL (80.0-97.0); Mean Platelet Volume 11.1 fL (9.5-12.2); Platelet Count 356 X 10*3/uL (140-440); RBC 4.62 X 10*6/uL (4.40-5.60); RDW 12.3 % (11.5-14.5); WBC 11.66 X 10*3/uL (4.50-10.00)
[2020-05-28 09:36] LABS: African American GFR (CKD) 50.9 (60.0-200.0); Anion Gap 6.7 mmol/L (4.00-12.00); BUN/Creat Ratio 21.25 Ratio (12.00-20.00); Calcium 9.1 mg/dL (8.7-10.3); Carbon Dioxide 29.3 mmol/L (21.6-31.8); Non-African American GFR(CKD) 43.9 (60.0-200.0)
[2020-05-28 09:47] LABS: Basophils # (A) 0.08 X 10*3/uL (0.00-0.10); Basophils % (A) 0.7 %; Eosinophils # (A) 0.08 X 10*3/uL (0.04-0.35); Eosinophils % (A) 0.7 %; Lymphocytes # (A) 1.67 X 10*3/uL (0.90-5.00); Lymphocytes % (A) 14.3 %; Monocytes # (A) 1.48 X 10*3/uL (0.20-1.00); Monocytes % (A) 12.7 %; Neutrophils # (A) 8.13 X 10*3/uL (1.80-7.70); Neutrophils % (A) 69.7 %
[2020-05-28 11:35] LABS: Glucose,Whole Blood 290 mg/dL (75-99)
--- NOTE | 2020-05-28 13:46 | PN ---
PROGRESS NOTE Patient is seen for followup for hyponatremia. He was admitted with severe hyperglycemia and serum sodium of 114 which improved with correction of hypernatremia. He is currently maintained on saline and the sodium is up to 134 today. It stayed around 127 and 129 most of yesterday. The patient is eating as well. His blood sugar is down to 237. Renal function has improved as well with creatinine down to 1.6 from 2.0. EXAMINATION: Today patient is comfortable. His blood pressure is 118/69, heart rate 99 per minute, he is afebrile. Examination of the heart S1, S2. Examination of the lungs, bilateral breath sounds are heard. Abdomen is soft, nontender. Examination lower extremities shows no significant edema. Chronic skin changes noted bilaterally. 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 LAB: Show sodium of 134, potassium 4.0, chloride 98, BUN of 34, serum creatinine 1.6 mg/dL. ASSESSMENT: 1. Acute kidney injury, prerenal, as well as obstructive uropathy currently with indwelling Nunn catheter. Ultrasound shows bilateral hydronephrosis. Currently patient has a Nunn catheter. We will consult Urology for followup as outpatient. Renal function is improving. The patient is encouraged to increase oral intake. I will discontinue the IV fluids. 2. Hyponatremia associated with severe hyperglycemia. Blood sugar was around 1200. The sodium has improved with correction of hyperglycemia. 3. Obstructive uropathy and bilateral hydronephrosis. Continue with Nunn catheter. 4. Urinary tract infection, maintained on Rocephin. 5. Mental status changes secondary to severe hyperglycemia, now improved. PLAN: Discontinue IV fluids, repeat labs in a.m., continue with Nunn catheter and consult Urology. MMODL / IJN: [id number] /
[2020-05-28 17:10] LABS: Glucose,Whole Blood 238 mg/dL (75-99)
[2020-05-28 21:03] LABS: Glucose,Whole Blood 283 mg/dL (75-99)
[2020-05-28] MEDS: ATORVASTATIN 80 MG TAB PO SCH (22:26)
[2020-05-28] MEDS: INSULIN DETEMIR (LEVEMIR) 100 UNIT/ML SYR SQ SCH (22:26)
--- NOTE | 2020-05-28 23:09 | P.PN ---
Subjective Progress Note Date: 05/28/20 Principal diagnosis: Acute urinary tract infection Hyperglycemia with uncontrolled diabetes type 2 Acute kidney injury Patient is a 69-year-old male with a known history of hypertension, diabetes type 2 [id number], hyperlipidemia and history of [place] status post cardiac catheterization and currently everyday smoker presents to ER due to complaints of lower abdominal pain and dysuria and increased urinary frequency. Patient is being treated for urinary tract infection with Macrobid since last Friday. Patient continued to have flank pain, lower abdominal pain and fever and chills at home. No complaints of chest pain or shortness of breath. Patient says that he had trouble voiding completely., Denied any recent illnesses otherwise. Patient was found to have sodium level CXIV, potassium 5.6, blood sugar: 98 and BUN 31 and creatinine 2.0 and lactic acid 2.5 on admission Urinalysis showed trace protein and 4+ glucose moderate blood, large leukocyte esterase and elevated WBC count. Covid 19 PCR not detected. 05/28/2020 Patient is currently sitting in a chair comfortably. No complaints of chest pain or shortness breath. Patient is able to tolerate oral diet. Blood sugar is better controlled. A1c level is 15.8. Insulin dose was adjusted. Renal fu nction is improving. Patient has been afebrile. No nausea vomiting or diarrhea. No cough or sputum production. Anticipate discharge in the next 24 hours. Patient will need insulin regimen upon discharge. Current medications reviewed Objective - Vital Signs Vital signs: Vital Signs Temp 98.1 F 05/28/20 07:53 Pulse 108 H 05/28/20 07:53 Resp 20 05/28/20 07:53 BP 117/81 05/28/20 07:53 Pulse Ox 94 L 05/28/20 07:53 Intake & Output 05/27/20 05/28/20 05/28/20 18:59 06:59 18:59 Intake Total 220 200 Output Total 300 Balance -80 200 Weight 100.9 kg Intake: IV 220 Sodium Chloride 0.9% 1, 220 000 ml @ 100 mls/hr IV . Q10H INOCENCIO Rx#:[id number] Oral 200 Output: Urine 300 Other: Voiding Method Indwelling Catheter # Voids 2 3 - Exam PHYSICAL EXAMINATION: Patient is lying in the bed comfortably, no acute distress, awake alert and oriented.. HEENT: Normocephalic. Neck is supple. Pupils reactive. Nostrils clear. Oral cavity is moist. Ears reveal no drainage. Neck reveals no JVD, carotid bruits, or thyromegaly. CHEST EXAMINATION: Trachea is central. Symmetrical expansion. Lung seo clear to auscultation and percussion. CARDIAC: Normal S1, S2 with no gallops. No murmurs ABDOMEN: Soft. Bowel sounds normal. No organomegaly. No abdominal bruits. Extremities: reveal no edema. No clubbing or cyanosis Neurologically awake, alert, oriented x3 with well-coordinated movements. No fo william deficits noted Skin: No rash or skin lesions. Psychiatric: Coperative. Nonsuicidal Musculoskeletal: No joint swelling or deformity. Normal range of motion. - Labs CBC & Chem 7: 05/28/20 06:00 05/28/20 06:00 Labs: Abnormal Lab Results - Last 24 Hours (Table) 05/27/20 05/27/20 05/27/20 Range/Units 16:41 18:06 18:06 WBC (4.50-10.00) X 10*3/uL Immature Gran # (0.00-0.04) X 10*3/uL Neutrophils # (1.80-7.70) X 10*3/uL Monocytes # (0.20-1.00) X 10*3/uL Sodium 127 L (137-145) mmol/L Chloride 91 L (98-107) mmol/L BUN (9.0-27.0) mg/dL Creatinine (0.6-1.5) mg/dL Est GFR (CKD-EPI)AfAm (60.0-200.0) Est GFR (CKD-EPI)NonAf (60.0-200.0) BUN/Creatinine Ratio (12.00-20.00) Ratio Glucose (70-110) mg/dL POC Glucose (mg/dL) 306 H (75-99) mg/dL Hemoglobin A1c 15.8 H (4.0-6.0) % 05/27/20 05/28/20 05/28/20 Range/Units 20:58 06:00 06:00 WBC 11.66 H (4.50-10.00) X 10*3/uL Immature Gran # 0.22 H (0.00-0.04) X 10*3/uL Neutrophils # 8.13 H (1.80-7.70) X 10*3/uL Monocytes # 1.48 H (0.20-1.00) X 10*3/uL Sodium 134 L (137-145) mmol/L Chloride (98-107) mmol/L BUN 34.0 H (9.0-27.0) mg/dL Creatinine 1.6 H (0.6-1.5) mg/dL Est GFR (CKD-EPI)AfAm 50.9 L (60.0-200.0) Est GFR (CKD-EPI)NonAf 43.9 L (60.0-200.0) BUN/Creatinine Ratio 21.25 H (12.00-20.00) Ratio Glucose 237 H (70-110) mg/dL POC Glucose (mg/dL) 393 H (75-99) mg/dL Hemoglobin A1c (4.0-6.0) % 05/28/20 05/28/20 Range/Units 07:01 11:23 WBC (4.50-10.00) X 10*3/uL Immature Gran # (0.00-0.04) X 10*3/uL Neutrophils # (1.80-7.70) X 10*3/uL Monocytes # (0.20-1.00) X 10*3/uL Sodium (137-145) mmol/L Chloride (98-107) mmol/L BUN (9.0-27.0) mg/dL Creatinine (0.6-1.5) mg/dL Est GFR (CKD-EPI)AfAm (60.0-200.0) Est GFR (CKD-EPI)NonAf (60.0-200.0) BUN/Creatinine Ratio (12.00-20.00) Ratio Glucose (70-110) mg/dL POC Glucose (mg/dL) 212 H 290 H (75-99) mg/dL Hemoglobin A1c (4.0-6.0) % Microbiology - Last 24 Hours (Table) 05/26/20 23:38 Blood Culture - Preliminary Blood No Growth after 24 hours 05/26/20 19:18 Blood Culture - Preliminary Blood No Growth after 24 hours 05/26/20 19:01 Urine Culture - Final Urine,Voided Assessment and Plan Assessment: Acute urinary tract infection. Failed outpatient therapy with Macrobid. urine cx negative Hyperglycemia with uncontrolled diabetes type 2 [id number] a1 c 15.8 Hyponatremia. Due to Hypovolemic and hyperglycemia. improved. Acute kidney injury was likely prerenal Lactic acidosis due to hypovolemia Mild hyperkalemia secondary to acute kidney injury. Improving now Paroxysmal atrial fibrillation on anticoagulation with Eliquis Hypertension Hyperlipidemia Previous history of smoking History of [place] status post cardiac catheterization. Obesity DVT prophylaxis with heparin subcu Plan: Patient will be continued on IV hydration and antibiotics in the form of ceftriaxone.Urine culture and blood cultures are negative.. Continue to monitor electrolyte and they'll function. Patient is not on insulin at home. On hypoglycemic agents. Patient was started on Levemir and insulin sliding scale. A1c level 15.8 Continue with home medications and hold lisinopril due to AKA. Further recommendations based on the clinical course. Time with Patient: Greater than 30
[2020-05-28] MEDS ORDERED: INSULIN DETEMIR (LEVEMIR) 100 UNIT/ML SYR SQ ONE (23:15)
[2020-05-29 07:06] LABS: Glucose,Whole Blood 105 mg/dL (75-99)
[2020-05-29] MEDS: METOPROLOL TARTRATE 50 MG TAB PO SCH ×2 (07:45→20:42)
[2020-05-29] MEDS: SERTRALINE 100 MG TAB PO SCH (07:45)
[2020-05-29] MEDS: INSULIN ASPART (NovoLOG) 100 UNIT/ML VIAL SQ SCH ×7 (07:45→21:25)
[2020-05-29] MEDS: APIXABAN 5 MG TAB PO SCH ×2 (07:45→20:43)
[2020-05-29 10:31] LABS: HCT 44.2 % (39.6-50.0); HGB 14.8 g/dL (13.0-17.0); MCH 31.7 pg (27.0-32.0); MCHC 33.5 g/dL (32.0-37.0); MCV 94.6 fL (80.0-97.0); Mean Platelet Volume 10.8 fL (9.5-12.2); Platelet Count 374 X 10*3/uL (140-440); RBC 4.67 X 10*6/uL (4.40-5.60); RDW 12.5 % (11.5-14.5)
[2020-05-29 10:56] LABS: African American GFR (CKD) 50.9 (60.0-200.0); Anion Gap 9.4 mmol/L (4.00-12.00); BUN/Creat Ratio 21.25 Ratio (12.00-20.00); Calcium 9.3 mg/dL (8.7-10.3); Carbon Dioxide 29.6 mmol/L (21.6-31.8); Non-African American GFR(CKD) 43.9 (60.0-200.0)
[2020-05-29 10:59] LABS: Basophils # (A) 0.08 X 10*3/uL (0.00-0.10); Basophils % (A) 0.6 %; Eosinophils # (A) 0.07 X 10*3/uL (0.04-0.35); Eosinophils % (A) 0.5 %; Lymphocytes # (A) 1.83 X 10*3/uL (0.90-5.00); Lymphocytes % (A) 13.3 %; Monocytes # (A) 1.51 X 10*3/uL (0.20-1.00); Monocytes % (A) 10.9 %; Neutrophils # (A) 9.83 X 10*3/uL (1.80-7.70); Neutrophils % (A) 71.2 %
--- NOTE | 2020-05-29 11:01 | P.PN ---
Subjective Patient is a 69-year-old male with a known history of hypertension, diabetes type 2 [id number], hyperlipidemia and history of [place] status post cardiac catheterization and currently everyday smoker presents to ER due to complaints of lower abdominal pain and dysuria and increased urinary frequency. Patient is being treated for urinary tract infection with Macrobid since last Friday. Patient continued to have flank pain, lower abdominal pain and fever and chills at home. No complaints of chest pain or shortness of breath. Patien t says that he had trouble voiding completely., Denied any recent illnesses otherwise. Patient was found to have sodium level CXIV, potassium 5.6, blood sugar: 98 and BUN 31 and creatinine 2.0 and lactic acid 2.5 on admission Urinalysis showed trace protein and 4+ glucose moderate blood, large leukocyte esterase and elevated WBC count. Covid 19 PCR not detected. 05/28/2020 Patient is currently sitting in a chair comfortably. No complaints of chest pain or shortness breath. Patient is able to tolerate oral diet. Blood sugar is better controlled. A1c level is 15.8. Insulin dose was adjusted. Renal function is improving. Patient has been afebrile. No nausea vomiting or diarrhea. No cough or sputum production. Anticipate discharge in the next 24 hours. Patient will need insulin regimen upon discharge. Subjective: 05/29/2020 This is a pleasant 69 years old male who presents with altered mental status, mostly metabolic encephalopathy secondary to UTI. Was treated with ceftriaxone. Also on admission he has a KI and bilateral hydronephrosis with a glucose more than 1000 on admission Today he was sitting in the chair fully awake and oriented, he knows in the hospital and [facility] and he can tell why he is in the hospital. He denies any urinary symptoms currently he says his dysuria on admission has improved. However he complains from urgency and some incontinence. Nunn catheter was discontinued and he is able to be. We will check bladder scan At home he was taking Januvia and glipizide and Actos which were stopped now and he was started on insulin Levemir 21 units at bedside +7 units of short acting insulin with meals. Groundskeeper team on the case and his creatinine improving down to 1.6 today. urologist has been consulted Review of systems CONSTITUTIONAL: No fever, no malaise, no fatigue. HEENT: No recent visual problems or hearing problems. Denied any sore throat. CARDIOVASCULAR: No orthopnea, PND, no palpitations, no syncope. PULMONARY: No shortness of breath, no cough, no hemoptysis. GASTROINTESTINAL: No diarrhea, no nausea, no vomiting, no abdominal pain. Normoactive bowel sounds. NEUROLOGICAL: No headaches, no weakness, no numbness. Active Medications Generic Name Dose Route Start Last Admin Trade Name Freq PRN Reason Stop Dose Admin Apixaban 5 mg 05/27/20 21:00 05/29/20 07:45 Apixaban 5 Mg Tab PO 5 mg BID INOCENCIO Administration Atorvastatin Calcium 80 mg 05/27/20 21:00 05/28/20 22:26 Atorvastatin 80 Mg Tab PO 80 mg HS INOCENCIO Administration Ceftriaxone Sodium 1 gm/ 50 mls @ 100 mls/hr 05/27/20 09:30 05/29/20 07:46 Sodium Chloride IVPB 100 mls/hr Q24HR INOCENCIO Administration Insulin Aspart 0 unit 05/27/20 12:30 05/29/20 07:46 Insulin Aspart (Novolog) 100 Unit/Ml Vial SQ Not Given ACHS [facility] Protocol Insulin Aspart 7 unit 05/29/20 07:30 05/29/20 07:45 Insulin Aspart (Novolog) 100 Unit/Ml Vial SQ 7 unit AC-TID INOCENCIO Administration Insulin Detemir 21 unit 05/29/20 21:00 Insulin Detemir (Levemir) 100 Unit/Ml Syr SQ HS [facility] Metoprolol Tartrate 50 mg 05/27/20 21:00 05/29/20 07:45 Metoprolol Tartrate 50 Mg Tab PO 50 mg BID INOCENCIO Administration Miscellaneous Information 1 each 05/27/20 02:19 Magnesium Replacement Protocol 1 Each Misc MISCELLANE DAILY PRN Per Protocol Protocol Miscellaneous Information 1 each 05/27/20 02:19 Potassium Replacement Protocol 1 Each Misc MISCELLANE DAILY PRN Per Protocol Naloxone HCl 0.2 mg 05/26/20 23:13 Naloxone 0.4 Mg/Ml 1 Ml Vial IV Q2M PRN Opioid Reversal Sertraline HCl 100 mg 05/28/20 09:00 05/29/20 07:45 Sertraline 100 Mg Tab PO 100 mg DAILY INOCENCIO Administration Tamsulosin HCl 0.4 mg 05/29/20 10:30 Tamsulosin 0.4 Mg Cap.Er.24h PO PC-BRKFST [facility] Objective - Vital Signs Vital signs: Vital Signs Temp 98.2 F 05/29/20 07:46 Pulse 99 05/29/20 07:46 Resp 16 05/29/20 07:46 BP 100/67 05/29/20 07:46 Pulse Ox 95 05/29/20 07:46 Intake & Output 05/28/20 05/29/20 05/29/20 18:59 06:59 18:59 Intake Total 200 200 Output Total 50 Balance 200 -50 200 Intake: Oral 200 200 Output: Urine 50 Other: Voiding Method Urinal Urinal Incontinent Incontinent # Voids 2 1 - Exam GENERAL: The patient is alert and oriented x3, not in any acute distress. Well developed, well nourished. HEENT: Pupils are round and equally reacting to light. EOMI. No scleral icterus. No conjunctival pallor. Normocephalic, atraumatic. No pharyngeal erythema. No thyromegaly. CARDIOVASCULAR: S1 and S2 present. No murmurs, rubs, or gallops. PULMONARY: Chest is clear to auscultation, no wheezing or crackles. ABDOMEN: Soft, nontender, nondistended, normoactive bowel sounds. No palpable organomegaly. MUSCULOSKELETAL: No joint swelling or deformity. EXTREMITIES: No cyanosis, clubbing, or pedal edema. NEUROLOGICAL: Gross neurological examination did not reveal any focal deficits. SKIN: No rashes. no petechiae. - Labs CBC & Chem 7: 05/29/20 06:02 05/28/20 06:00 Labs: Abnormal Lab Results - Last 24 Hours (Table) 05/28/20 05/28/20 05/28/20 Range/Units 11:23 17:03 21:00 WBC (4.50-10.00) X 10*3/uL POC Glucose (mg/dL) 290 H 238 H 283 H (75-99) mg/dL 05/29/20 05/29/20 Range/Units 06:02 07:04 WBC 13.80 H (4.50-10.00) X 10*3/uL POC Glucose (mg/dL) 105 H (75-99) mg/dL Microbiology - Last 24 Hours (Table) 05/26/20 23:38 Blood Culture - Preliminary Blood No Growth after 48 hours 05/26/20 19:18 Blood Culture - Preliminary Blood No Growth after 48 hours Assessment and Plan Assessment: Acute urinary tract infection. Failed outpatient therapy with Macrobid. urine cx negative Bilateral hydronephrosis Hyperglycemia with uncontrolled diabetes type 2 [id number] a1 c 15.8 Hyponatremia. Due to Hypovolemic and hyperglycemia. improved. Acute kidney injury was likely prerenal Lactic acidosis due to hypovolemia. Improved Mild hyperkalemia secondary to acute kidney injury. Improving now Paroxysmal atrial fibrillation on anticoagulation with Eliquis Hypertension Hyperlipidemia Previous history of smoking History of [place] status post cardiac catheterization. Obesity Plan: This is a pleasant 69 years old male who presents with UTI, bilateral hydronephrosis suspected secondary to blood clots or mass. Groundskeeper and urologist on the case. I was a stopped. Glucose is better controlled with insulin, Continue with ceftriaxone and he is on Eliquis. Urine culture is negative. Check bladder scan Labs and medication were reviewed.. Continue same treatment. Continue with sym ptomatic treatment. Resume home medication. Monitor lytes and vitals. DVT and GI prophylaxis. Further recommendationsas per clinical course of the patient DVT prophylaxis: Eliquis GI Prophylaxis: Pepcid PT/OT: Pending Prognosis is guarded
[2020-05-29] MEDS: TAMSULOSIN 0.4 MG CAP.ER.24H PO SCH (11:06)
[2020-05-29 12:00] LABS: Glucose,Whole Blood 162 mg/dL (75-99)
--- NOTE | 2020-05-29 14:55 | PN ---
PROGRESS NOTE Patient is seen for followup for hyponatremia associated with severe hyperglycemia. Blood sugar was around 1200. Serum sodium has improved now at about 138 mEq/L. Glucose is down to about 105 and 162 today. Renal function has also improved with creatinine down from 2.0 to 1.6 mg/dL. Previous creatinine 1.0 in 2019. EXAMINATION: Today patient is comfortable, awake, not in any acute distress. Blood pressure is 100/67, heart rate 99 per minute. He is afebrile. Examination of the heart S1, S2. Examination of the lungs, bilateral breath sounds are heard. Decreased breath sounds at bases. Abdomen is soft, nontender. Examination of lower extremities shows chronic skin changes. No significant edema noted at this time. LAB: Show sodium of 138, potassium 4.0, chloride 99, BUN 34, creatinine 1.6, hemoglobin 14.8 g/dL. ASSESSMENT: 1. Acute kidney injury prerenal as well as obstructive uropathy. The patient was noted to have bilateral hydronephrosis. He did have an indwelling Nunn catheter. However, it appears that the Nunn catheter has been removed. 2. Urinary tract infection, maintained on Rocephin. 3. Hyponatremia associated with severe hyperglycemia with blood sugar above 1200, currently improved. 4. Mental status changes associated with severe hyperglycemia, now improved. PLAN: Since Nunn catheter was removed. Await urology input regarding further plans. At this time, renal function continues to improve. The patient has been voiding and he has been started off on Flomax. He will definitely need to follow with Urology as outpatient. MMODL / IJN: [id number] /
[2020-05-29 17:02] LABS: Glucose,Whole Blood 286 mg/dL (75-99)
[2020-05-29] MEDS: ATORVASTATIN 80 MG TAB PO SCH (20:43)
[2020-05-29] MEDS: FAMOTIDINE 20 MG/2 ML VIAL IV SCH (20:43)
--- NOTE | 2020-05-29 20:51 | P.GSCN ---
History of Present Illness Consult date: 05/29/20 Reason for Consult: Urinary retention History of present illness: 69 yo male who presented here to the emergency room with complaint of diffi culty emptying his bladder. His lab work on presentation showed blood glucose level 1298 and significant hyponatremia. He was initially admitted to the ICU, a Nunn catheter was placed at that time with the return of 500 of urine. Denies any history of urinary retention, but complains of hesitancy weak stream and some straining with urination. No previous hx of urinary retention, his urine culture on presentation was negative. Nunn catheter has been subsequently removed when the patient left the ICU, no PVR was available. No previous hx of retention. On presentation a renal bladder ultrasound showed bilateral hydronephrosis. And increased echogenicity in the dependent portion of the bl adder Review of Systems - Constitutional Denies fever, Denies weight loss - EENT Ears, nose, mouth and throat: Denies dysphagia - Cardiovascular Denies chest pain, Denies shortness of breath - Respiratory Denies cough, Denies 7 - Gastrointestinal Reports as per HPI - Genitourinary Reports polyuria, Reports urinary frequency, Reports urinary hesitancy, Reports urinary retention, Denies hematuria - Neurological Denies headaches, Denies syncope Past Medical History Past Medical History: Coronary Artery Disease (CAD), Diabetes Mellitus, Hyperlipidemia, Hypertension, Myocardial Infarction (MT) Last Myocardial Infarction Date:: 1972 History of Any Multi-Drug Resistant Organisms: None Reported Past Surgical History: Heart Catheterization Additional Past Anesthesia/Blood Transfusion Reaction / Comm: No previous transfusion Past Psychological History: No Psychological Hx Reported Smoking Status: Current every day smoker Past Alcohol Use History: None Reported Past Drug Use History: None Reported Medications and Allergies Home Medications Medication Instructions Recorded Confirmed Type Apixaban [Eliquis] 5 mg PO BID 05/26/20 05/26/20 History Atorvastatin Calcium [Lipitor] 80 mg PO HS 05/26/20 05/26/20 History Dapagliflozin Propanediol [Farxiga] 10 mg PO DAILY 05/26/20 05/26/20 History Enalapril [Vasotec] 5 mg PO BID 05/26/20 05/26/20 History Isosorbide Mononitrate [Isosorbide 30 mg PO DAILY 05/26/20 05/26/20 History Mononitrate ER] Metoprolol Tartrate [Lopressor] 50 mg PO BID 05/26/20 05/26/20 History Nitrofurantoin Monohyd/M-Cryst 100 mg PO Q12HR 05/26/20 05/26/20 History [Macrobid] Pioglitazone [Actos] 45 mg PO DAILY 05/26/20 05/26/20 History Sertraline HCl [Zoloft] 100 mg PO DAILY 05/26/20 05/26/20 History glipiZIDE XL [Glucotrol Xl] 10 mg PO BID 05/26/20 05/26/20 History sitaGLIPtin PHOSPHATE [Januvia] 100 mg PO DAILY 05/26/20 05/26/20 History Allergies Allergy/AdvReac Type Severity Reaction Status Date / Time Sulfa (Sulfonamide Allergy Unknown Verified 05/26/20 21:02 Antibiotics) Surgical - Exam Vital Signs Temp Pulse Resp BP Pulse Ox 98.9 F 96 20 127/80 96 05/26/20 18:43 05/26/20 18:43 05/26/20 18:43 05/26/20 18:43 05/26/20 18:43 - General well developed, well nourished, no distress, no pain - Eyes PERRL, normal ocular movement - ENT normal nares, normal mucosa - Respiratory normal expansion, normal respiratory effort - Psychiatric oriented to time, oriented to person, oriented to place Results - Labs 05/29/20 06:02 05/29/20 06:02 Abnormal Lab Results - Last 24 Hours (Table) 05/28/20 05/29/20 05/29/20 Range/Units 21:00 06:02 06:02 WBC 13.80 H (4.50-10.00) X 10*3/uL Immature Gran # 0.48 H (0.00-0.04) X 10*3/uL Neutrophils # 9.83 H (1.80-7.70) X 10*3/uL Monocytes # 1.51 H (0.20-1.00) X 10*3/uL BUN (9.0-27.0) mg/dL Creatinine (0.6-1.5) mg/dL Est GFR (CKD-EPI)AfAm (60.0-200.0) Est GFR (CKD-EPI)NonAf (60.0-200.0) BUN/Creatinine Ratio (12.00-20.00) Ratio POC Glucose (mg/dL) 283 H (75-99) mg/dL Procalcitonin 0.14 H (0.02-0.09) ng/mL 05/29/20 05/29/20 05/29/20 Range/Units 06:02 07:04 11:58 WBC (4.50-10.00) X 10*3/uL Immature Gran # (0.00-0.04) X 10*3/uL Neutrophils # (1.80-7.70) X 10*3/uL Monocytes # (0.20-1.00) X 10*3/uL BUN 34.0 H (9.0-27.0) mg/dL Creatinine 1.6 H (0.6-1.5) mg/dL Est GFR (CKD-EPI)AfAm 50.9 L (60.0-200.0) Est GFR (CKD-EPI)NonAf 43.9 L (60.0-200.0) BUN/Creatinine Ratio 21.25 H (12.00-20.00) Ratio POC Glucose (mg/dL) 105 H 162 H (75-99) mg/dL Procalcitonin (0.02-0.09) ng/mL 05/29/20 Range/Units 17:00 WBC (4.50-10.00) X 10*3/uL Immature Gran # (0.00-0.04) X 10*3/uL Neutrophils # (1.80-7.70) X 10*3/uL Monocytes # (0.20-1.00) X 10*3/uL BUN (9.0-27.0) mg/dL Creatinine (0.6-1.5) mg/dL Est GFR (CKD-EPI)AfAm (60.0-200.0) Est GFR (CKD-EPI)NonAf (60.0-200.0) BUN/Creatinine Ratio (12.00-20.00) Ratio POC Glucose (mg/dL) 286 H (75-99) mg/dL Procalcitonin (0.02-0.09) ng/mL Microbiology - Last 24 Hours (Table) 05/26/20 23:38 Blood Culture - Preliminary Blood No Growth after 48 hours 05/26/20 19:18 Blood Culture - Preliminary Blood No Growth after 48 hours Diabetes panel 05/29/20 Range/Units 06:02 Sodium 138 (135-145) mmol/L Potassium 4.0 (3.5-5.5) mmol/L Chloride 99 (96-109) mmol/L Carbon Dioxide 29.6 (21.6-31.8) mmol/L BUN 34.0 H (9.0-27.0) mg/dL Creatinine 1.6 H (0.6-1.5) mg/dL Glucose 78 (70-110) mg/dL Calcium 9.3 (8.7-10.3) mg/dL Calcium panel 05/29/20 Range/Units 06:02 Calcium 9.3 (8.7-10.3) mg/dL Pituitary panel 05/29/20 Range/Units 06:02 Sodium 138 (135-145) mmol/L Potassium 4.0 (3.5-5.5) mmol/L Chloride 99 (96-109) mmol/L Carbon Dioxide 29.6 (21.6-31.8) mmol/L BUN 34.0 H (9.0-27.0) mg/dL Creatinine 1.6 H (0.6-1.5) mg/dL Glucose 78 (70-110) mg/dL Calcium 9.3 (8.7-10.3) mg/dL Adrenal panel 05/29/20 Range/Units 06:02 Sodium 138 (135-145) mmol/L Potassium 4.0 (3.5-5.5) mmol/L Chloride 99 (96-109) mmol/L Carbon Dioxide 29.6 (21.6-31.8) mmol/L BUN 34.0 H (9.0-27.0) mg/dL Creatinine 1.6 H (0.6-1.5) mg/dL Glucose 78 (70-110) mg/dL Calcium 9.3 (8.7-10.3) mg/dL Assessment and Plan Assessment: 69 yo male admitted to the hospital with hyponatremia and hyperglycemia. If she's been complaining of urinary symptoms, PVR was 500, and a Nunn catheter was placed. Subsequently the Nunn catheter has been removed since the patient left the ICU. Has urinary symptoms at baseline, no previous history of retention. On presentation a renal bladder ultrasound showed bilateral hydronephrosis. And increased echogenicity in the dependent portion of the bladder. His hydronephrosis is mostly secondary to his urinary retention. His creatinine has been trending down since admission, no surgical intervention is needed at this time. -We'll obtain a PVR, greater than 300 mL the Nunn catheter should be reinserted -Continue Flomax -We'll need repeat renal bladder ultrasound as an outpatient to assess resolution of [place], also will need an outpatient cystoscopy given the increased echogenicity in the bladder on ultrasound
[2020-05-29] MEDS ORDERED: INSULIN DETEMIR (LEVEMIR) 100 UNIT/ML SYR SQ SCH (21:00)
[2020-05-29 21:03] LABS: Glucose,Whole Blood 333 mg/dL (75-99)
[2020-05-30 06:59] LABS: Glucose,Whole Blood 90 mg/dL (75-99)
[2020-05-30] MEDS ORDERED: INSULIN DETEMIR (LEVEMIR) 100 UNIT/ML SYR SQ SCH (07:00)
[2020-05-30] MEDS: FAMOTIDINE 20 MG/2 ML VIAL IV SCH (08:02)
[2020-05-30] MEDS: SERTRALINE 100 MG TAB PO SCH (08:02)
[2020-05-30] MEDS: TAMSULOSIN 0.4 MG CAP.ER.24H PO SCH (08:02)
[2020-05-30] MEDS: APIXABAN 5 MG TAB PO SCH ×2 (08:02→21:02)
[2020-05-30] MEDS: METOPROLOL TARTRATE 50 MG TAB PO SCH ×2 (08:02→21:02)
[2020-05-30] MEDS: INSULIN ASPART (NovoLOG) 100 UNIT/ML VIAL SQ SCH ×7 (08:03→21:01)
--- NOTE | 2020-05-30 08:28 | P.PN ---
Subjective Progress Note Date: 05/30/20 No acute overnight, indicates he is voiding to completion, no dysuria, no gross hematuria. Objective - Vital Signs Vital signs: Vital Signs Temp 97.8 F 05/30/20 07:28 Pulse 87 05/30/20 07:28 Resp 17 05/30/20 07:28 BP 126/79 05/30/20 07:28 Pulse Ox 92 L 05/30/20 07:28 Intake & Output 05/29/20 05/30/20 05/30/20 18:59 06:59 18:59 Intake Total 200 Balance 200 Intake: Oral 200 Other: Voiding Method Urinal Urinal Incontinent Incontinent # Voids 1 - Constitutional General appearance: Present: no acute distress - Psychiatric Psychiatric: Present: A&O x's 3 - Labs CBC & Chem 7: 05/29/20 06:02 05/29/20 06:02 Labs: Abnormal Lab Results - Last 24 Hours (Table) 05/29/20 05/29/20 05/29/20 Range/Units 06:02 06:02 06:02 WBC 13.80 H (4.50-10.00) X 10*3/uL Immature Gran # 0.48 H (0.00-0.04) X 10*3/uL Neutrophils # 9.83 H (1.80-7.70) X 10*3/uL Monocytes # 1.51 H (0.20-1.00) X 10*3/uL BUN 34.0 H (9.0-27.0) mg/dL Creatinine 1.6 H (0.6-1.5) mg/dL Est GFR (CKD-EPI)AfAm 50.9 L (60.0-200.0) Est GFR (CKD-EPI)NonAf 43.9 L (60.0-200.0) BUN/Creatinine Ratio 21.25 H (12.00-20.00) Ratio POC Glucose (mg/dL) (75-99) mg/dL Procalcitonin 0.14 H (0.02-0.09) ng/mL 05/29/20 05/29/20 05/29/20 Range/Units 11:58 17:00 21:01 WBC (4.50-10.00) X 10*3/uL Immature Gran # (0.00-0.04) X 10*3/uL Neutrophils # (1.80-7.70) X 10*3/uL Monocytes # (0.20-1.00) X 10*3/uL BUN (9.0-27.0) mg/dL Creatinine (0.6-1.5) mg/dL Est GFR (CKD-EPI)AfAm (60.0-200.0) Est GFR (CKD-EPI)NonAf (60.0-200.0) BUN/Creatinine Ratio (12.00-20.00) Ratio POC Glucose (mg/dL) 162 H 286 H 333 H (75-99) mg/dL Procalcitonin (0.02-0.09) ng/mL Microbiology - Last 24 Hours (Table) 05/26/20 23:38 Blood Culture - Preliminary Blood No Growth after 72 hours 05/26/20 19:18 Blood Culture - Preliminary Blood No Growth after 72 hours Assessment and Plan Assessment: 69 yo male admitted to the hospital with hyponatremia and hyperglycemia. If she's been complaining of urinary symptoms, PVR was 500, and a Nunn catheter was placed. Subsequently the Nunn catheter has been removed since the patient left the ICU. Has urinary symptoms at baseline, no previous history of retention. On presentation a renal bladder ultrasound showed bilateral hydronephrosis. And increased echogenicity in the dependent portion of the bladder. His hydronephrosis is mostly secondary to his urinary retention. His creatinine has been trending down since admission, no surgical intervention is needed at this time. Has been voiding w/o issues since the catheter been removed -We'll obtain a PVR, if greater than 300 mL the Nunn catheter should be reinserted -Continue Flomax, will discharge home with the flomax -We'll need repeat renal bladder ultrasound as an outpatient to assess resolution of [place], also will need an outpatient cystoscopy given the increased echogenicity in the bladder on ultrasound -Ok for discharge from urology standpoint after Obtaining PVR
[2020-05-30 09:18] LABS: Basophils # (A) 0.08 X 10*3/uL (0.00-0.10); Basophils % (A) 0.6 %; Eosinophils # (A) 0.08 X 10*3/uL (0.04-0.35); Eosinophils % (A) 0.6 %; HCT 44.5 % (39.6-50.0); HGB 15.2 g/dL (13.0-17.0); Lymphocytes # (A) 2.32 X 10*3/uL (0.90-5.00); Lymphocytes % (A) 16.4 %; MCH 31.9 pg (27.0-32.0); MCHC 34.2 g/dL (32.0-37.0); MCV 93.3 fL (80.0-97.0); Mean Platelet Volume 11.1 fL (9.5-12.2); Monocytes # (A) 1.38 X 10*3/uL (0.20-1.00); Monocytes % (A) 9.8 %; Neutrophils # (A) 9.62 X 10*3/uL (1.80-7.70); Neutrophils % (A) 68.1 %; Platelet Count 403 X 10*3/uL (140-440); RBC 4.77 X 10*6/uL (4.40-5.60); RDW 12.6 % (11.5-14.5); WBC 14.12 X 10*3/uL (4.50-10.00)
[2020-05-30 09:38] LABS: African American GFR (CKD) 65.4 (60.0-200.0); Anion Gap 9.2 mmol/L (4.00-12.00); BUN/Creat Ratio 26.15 Ratio (12.00-20.00); Calcium 8.7 mg/dL (8.7-10.3); Carbon Dioxide 24.8 mmol/L (21.6-31.8); Non-African American GFR(CKD) 56.5 (60.0-200.0); Potassium 4.1 mmol/L (3.5-5.5)
--- NOTE | 2020-05-30 10:59 | P.PN ---
Subjective Patient is a 69-year-old male with a known history of hypertension, diabetes type 2 [id number], hyperlipidemia and history of NC status post cardiac catheterization and currently everyday smoker presents to ER due to complaints of lower abdominal pain and dysuria and increased urinary frequency. Patient is being treated for urinary tract infection with Macrobid since last Friday. Patient continued to have flank pain, lower abdominal pain and fever and chills at home. No complaints of chest pain or shortness of breath. Patien t says that he had trouble voiding completely., Denied any recent illnesses otherwise. Patient was found to have sodium level CXIV, potassium 5.6, blood sugar: 98 and BUN 31 and creatinine 2.0 and lactic acid 2.5 on admission Urinalysis showed trace protein and 4+ glucose moderate blood, large leukocyte esterase and elevated WBC count. Covid 19 PCR not detected. 05/28/2020 Patient is currently sitting in a chair comfortably. No complaints of chest pain or shortness breath. Patient is able to tolerate oral diet. Blood sugar is better controlled. A1c level is 15.8. Insulin dose was adjusted. Renal function is improving. Patient has been afebrile. No nausea vomiting or diarrhea. No cough or sputum production. Anticipate discharge in the next 24 hours. Patient will need insulin regimen upon discharge. Subjective: 05/29/2020 This is a pleasant 69 years old male who presents with altered mental status, mostly metabolic encephalopathy secondary to UTI. Was treated with ceftriaxone. Also on admission he has a KI and bilateral hydronephrosis with a glucose more than 1000 on admission Today he was sitting in the chair fully awake and oriented, he knows in the hospital and [facility] and he can tell why he is in the hospital. He denies any urinary symptoms currently he says his dysuria on admission has improved. However he complains from urgency and some incontinence. Nunn catheter was discontinued and he is able to be. We will check bladder scan At home he was taking Januvia and glipizide and Actos which were stopped now and he was started on insulin Levemir 21 units at bedside +7 units of short acting insulin with meals. Aquatics Instructor team on the case and his creatinine improving down to 1.6 today. urologist has been consulted 05/30/2020 Patient thinks he is improved, he has some difficulty walking due to his UTI and mild diarrhea but no abdominal pain or nausea vomiting.\ Urologist evaluated the patient and Nunn catheter was discontinued. We going to recheck his PVR. Urologist is of more than 300 then reinsert Nunn catheter. Creatinine is improving down to 1.3 but leukocytosis is worsened, he is already on Rocephin and urine culture was negative. We are going to repeat urinalysis Primary urologist patient will need cystoscopy as an outpatient and change his stent in 2 months, patient informed and he agrees. He was instructed to follow up with urologist for example Dr. Philip or Dr. lyles in 1-2 weeks and he agrees He agrees with the current management of his diabetes with insulin 10 units twice a day and 7 units with meals, he states that he knows how to inject himself with insulin as he did before. Patient was instructed to check his glucose 4 times a day before each meal and at bedtime and to keep it in a logic book and presented to on his appointment date. Patient was instructed to call 911 on come to emergency room if his glucose less than 70 or more than 400s Objective - Vital Signs Vital signs: Vital Signs Temp 97.8 F 05/30/20 07:28 Pulse 87 05/30/20 07:28 Resp 17 05/30/20 07:28 BP 126/79 05/30/20 07:28 Pulse Ox 92 L 05/30/20 07:28 Intake & Output 05/29/20 05/30/20 05/30/20 18:59 06:59 18:59 Intake Total 200 Output Total 200 Balance 200 -200 Intake: Oral 200 Output: Urine 200 Other: Voiding Method Urinal Urinal Incontinent Incontinent # Voids 1 - Exam GENERAL: The patient is alert and oriented x3, not in any acute distress. Well developed, well nourished. HEENT: Pupils are round and equally reacting to light. EOMI. No scleral icterus. No conjunctival pallor. Normocephalic, atraumatic. No pharyngeal erythema. No th yromegaly. CARDIOVASCULAR: S1 and S2 present. No murmurs, rubs, or gallops. PULMONARY: Chest is clear to auscultation, no wheezing or crackles. ABDOMEN: Soft, nontender, nondistended, normoactive bowel sounds. No palpable organomegaly. MUSCULOSKELETAL: No joint swelling or deformity. EXTREMITIES: No cyanosis, clubbing, or pedal edema. NEUROLOGICAL: Gross neurological examination did not reveal any focal deficits. SKIN: No rashes. no petechiae. - Labs CBC & Chem 7: 05/30/20 05:49 05/30/20 05:49 Labs: Abnormal Lab Results - Last 24 Hours (Table) 05/29/20 05/29/20 05/29/20 Range/Units 06:02 06:02 06:02 WBC (4.50-10.00) X 10*3/uL Immature Gran # 0.48 H (0.00-0.04) X 10*3/uL Neutrophils # 9.83 H (1.80-7.70) X 10*3/uL Monocytes # 1.51 H (0.20-1.00) X 10*3/uL BUN 34.0 H (9.0-27.0) mg/dL Creatinine 1.6 H (0.6-1.5) mg/dL Est GFR (CKD-EPI)AfAm 50.9 L (60.0-200.0) Est GFR (CKD-EPI)NonAf 43.9 L (60.0-200.0) BUN/Creatinine Ratio 21.25 H (12.00-20.00) Ratio POC Glucose (mg/dL) (75-99) mg/dL Procalcitonin 0.14 H (0.02-0.09) ng/mL 05/29/20 05/29/20 05/29/20 Range/Units 11:58 17:00 21:01 WBC (4.50-10.00) X 10*3/uL Immature Gran # (0.00-0.04) X 10*3/uL Neutrophils # (1.80-7.70) X 10*3/uL Monocytes # (0.20-1.00) X 10*3/uL BUN (9.0-27.0) mg/dL Creatinine (0.6-1.5) mg/dL Est GFR (CKD-EPI)AfAm (60.0-200.0) Est GFR (CKD-EPI)NonAf (60.0-200.0) BUN/Creatinine Ratio (12.00-20.00) Ratio POC Glucose (mg/dL) 162 H 286 H 333 H (75-99) mg/dL Procalcitonin (0.02-0.09) ng/mL 05/30/20 05/30/20 Range/Units 05:49 05:49 WBC 14.12 H (4.50-10.00) X 10*3/uL Immature Gran # 0.64 H (0.00-0.04) X 10*3/uL Neutrophils # 9.62 H (1.80-7.70) X 10*3/uL Monocytes # 1.38 H (0.20-1.00) X 10*3/uL BUN 34.0 H (9.0-27.0) mg/dL Creatinine (0.6-1.5) mg/dL Est GFR (CKD-EPI)AfAm (60.0-200.0) Est GFR (CKD-EPI)NonAf 56.5 L (60.0-200.0) BUN/Creatinine Ratio 26.15 H (12.00-20.00) Ratio POC Glucose (mg/dL) (75-99) mg/dL Procalcitonin (0.02-0.09) ng/mL Microbiology - Last 24 Hours (Table) 05/26/20 23:38 Blood Culture - Preliminary Blood No Growth after 72 hours 05/26/20 19:18 Blood Culture - Preliminary Blood No Growth after 72 hours Assessment and Plan Assessment: Acute urinary tract infection. Failed outpatient therapy with Macrobid. urine cx negative Bilateral hydronephrosis Hyperglycemia with uncontrolled diabetes type 2 bym-cmwduvg-vhcngarel a1 c 15.8 Hyponatremia. Due to Hypovolemic and hyperglycemia. improved. Acute kidney injury was likely prerenal Lactic acidosis due to hypovolemia. Improved Mild hyperkalemia secondary to acute kidney injury. Improving now Paroxysmal atrial fibrillation on anticoagulation with Eliquis Hypertension Hyperlipidemia Previous history of smoking History of NC status post cardiac catheterization. Obesity Plan: This is a pleasant 69 years old male who presents with UTI, bilateral hydronephrosis suspected secondary to blood clots or mass. Aquatics Instructor and urologist on the case. Check PVR and urinalysis Glucose is better controlled with insulin, Continue with ceftriaxone and he is on Eliquis. Labs and medication were reviewed.. Continue same treatment. Continue with symptomatic treatment. Resume home medication. Monitor lytes and vitals. DVT and GI prophylaxis. Further recommendationsas per clinical course of the patient DVT prophylaxis: Eliquis GI Prophylaxis: Pepcid PT/OT: Home Prognosis is guarded
[2020-05-30 11:54] LABS: Glucose,Whole Blood 130 mg/dL (75-99)
[2020-05-30 14:41] LABS: Appearance,Urine Turbid (Clear); Bacteria,Urine Occasional /hpf; Bilirubin,Urine Negative (Negative); Blood,Urine Moderate (Negative); Budding Yeast,Urine Occasional /hpf; Color,Urine Light Yellow; Glucose,Urine (UA) Negative (Negative); Ketones,Urine Negative (Negative); Leukocyte Esterase,Urine Large (Negative); Nitrite,Urine Negative (Negative); Protein,Urine 1+ (Negative); RBC,Urine 29 /hpf (0-5); Specific Gravity,Urine 1.014 (1.001-1.035); Urobilinogen,Urine <2.0 mg/dL (<2.0); WBC,Urine >182 /hpf (0-5)
--- NOTE | 2020-05-30 14:49 | PN ---
PROGRESS NOTE Patient is seen for followup for hyponatremia and acute kidney injury. Renal function continues to improve with creatinine down to 1.3 from 2.0 on initial admission. The patient is noted to have milky colored urine and repeat UA and C and sensitivity is being sent out. His white cell count has been increasing. PHYSICAL EXAMINATION: On examination today, blood pressure is 126/79, heart rate 87 per minute. Patient is afebrile. EXAMINATION OF THE HEART: S1, S2. EXAMINATION OF THE LUNGS: Bilateral breath sounds are heard. Abdomen is soft, nontender. Examination of lower extremities shows no evidence of edema. BACKREST ASSEMBLER exam is grossly intact. LABS: Labs show sodium 137, potassium 4.1, serum creatinine down to 1.3. ASSESSMENT: 1. Acute kidney injury prerenal currently and secondary to obstructive uropathy, currently improved. Patient has been evaluated by Urology. His ultrasound showed bilateral hydronephrosis. He is currently not retaining. Patient did have an elevated postvoid residual previously. He has been started on Flomax. The Nunn catheter is now removed. The patient is advised to follow up with Urology post discharge. 2. Hyponatremia associated with severe hyperglycemia, now improved. 3. Urinary tract infection previous urine culture did not grow. We will repeat the urine UA and culture and sensitivity. Patient's white cell count is increasing. PLAN: Repeat UA, C and S and repeat labs in a.m. Encourage increased oral intake. MMODL / IJN: [id number] /
[2020-05-30 16:48] LABS: Glucose,Whole Blood 196 mg/dL (75-99)
[2020-05-30 20:14] LABS: Glucose,Whole Blood 202 mg/dL (75-99)
[2020-05-30] MEDS ORDERED: LEVOFLOXACIN 500MG-D5W PMX 500 MG in DEXTROSE/WATER 1 100ML.BAG IVPB SCH (21:00)
[2020-05-30] MEDS: INSULIN DETEMIR (LEVEMIR) 100 UNIT/ML SYR SQ SCH (21:01)
[2020-05-30] MEDS: ATORVASTATIN 80 MG TAB PO SCH (21:02)
[2020-05-30] MEDS: FAMOTIDINE 20 MG TAB PO SCH (21:02)
[2020-05-30] MEDS ORDERED: FLUCONAZOLE 100 MG TAB PO ONE (21:52)
[2020-05-31 06:43] LABS: Glucose,Whole Blood 278 mg/dL (75-99)
[2020-05-31] MEDS: FAMOTIDINE 20 MG TAB PO SCH ×2 (07:16→20:13)
[2020-05-31] MEDS: APIXABAN 5 MG TAB PO SCH ×2 (07:17→20:13)
[2020-05-31] MEDS: TAMSULOSIN 0.4 MG CAP.ER.24H PO SCH (07:17)
[2020-05-31] MEDS: METOPROLOL TARTRATE 50 MG TAB PO SCH ×2 (07:17→20:15)
[2020-05-31] MEDS: INSULIN ASPART (NovoLOG) 100 UNIT/ML VIAL SQ SCH ×7 (07:17→20:14)
[2020-05-31] MEDS: FLUCONAZOLE 100 MG TAB PO SCH (07:17)
[2020-05-31] MEDS: INSULIN DETEMIR (LEVEMIR) 100 UNIT/ML SYR SQ SCH ×2 (07:17→20:15)
[2020-05-31] MEDS: SERTRALINE 100 MG TAB PO SCH (07:17)
--- NOTE | 2020-05-31 08:42 | CONS ---
CONSULTATION DATE OF SERVICE: 05/30/2020 REASON FOR CONSULTATION: Leukocytosis and urinary tract infection. HISTORY OF PRESENT ILLNESS: The patient is a 69-year-old male presenting to the ER at [facility] 4 days ago on the for evaluation of dysuria, frequency and some difficulty urination. Apparently the patient was diagnosed with UTI a few days prior to that and was started on Macrobid. However, the patient did not have any improvement. These symptoms persist. He presented to hospital. The patient also complaining of symptoms of incompletely emptying his bladder. The patient did have a postvoid residual of more than 500. Nunn catheter was placed. The patient did have an ultrasound with evidence of bilateral hydronephrosis and some echogenicity in the bladder wall. Urology has seen the patient, recommending outpatient workup. The patient did not have any fever during this hospital stay. The patient did have a normal white count on presentation. Subsequent white count has been trending up to 14.1 today and repeat UA has been done which shows positive and Infection Disease was consulted for further management of antibiotic. The patient was treated with Rocephin which has been switched over to Levaquin. The patient also has loose stool x3 today by the nursing staff. Stool for C difficile was sent which came back negative. Because of his worsening white count, Infectious Disease was consulted for management of his antibiotic therapy. REVIEW OF SYSTEMS: Positive points have been mentioned in HPI. Rest of systems negative. PAST MEDICAL HISTORY: Coronary artery disease, diabetes mellitus, hyperlipidemia, hypertension. PAST SURGICAL HISTORY: Heart catheterization. SOCIAL HISTORY: Remote history of smoking. No drinking or any drug use. FAMILY HISTORY: No pertinent findings noticed. ALLERGIES: SULFA. MEDICATIONS: Medications include the patient is currently on Eliquis, Lipitor, Pepcid, NovoLog, Levemir, Lopressor, Narcan, Zoloft, Flomax and Levaquin. PHYSICAL EXAMINATION: Blood pressure 117/78 with a pulse of 87, temperature 97.7. He is 93% on room air. General description is an elderly male lying in bed in no distress. No tachypnea or accessory muscle of respiration use. HEENT: Examination shows no pallor or scleral icterus. Oral mucous membrane is dry. No pharyngeal erythema or thrush. NECK: Trachea central. No thyromegaly. LUNGS: Unlabored breathing, clear to auscultation anteriorly. No wheeze or crackle. HEART: S1, S2. Regular rate and rhythm. ABDOMEN: Soft, no tenderness. No guarding or rigidity. EXTREMITIES: No edema of feet. SKIN EXAMINATION: No rashes or mass palpable. NEUROLOGICAL: Patient is awake, alert, oriented x3. Mood and affect normal. LABS: Hemoglobin is 15.2 with white count 14.12. Creatinine 1.3. Urine is positive with evidence of budding yeast. Stool for C difficile was negative. Carrasco PCR was negative. Ultrasound report as mentioned above. DIAGNOSTIC IMPRESSION: Patient with an elevated white count in this patient who was admitted to the hospital with symptoms of urinary tract infection. However, subsequently urine culture has been negative. The patient urine is showing yeast, which is currently not treated with antibiotic has been receiving more likely responsible for the elevated white count. PLAN: 1. Discontinue the Levaquin. 2. We will start the patient on Diflucan 200 mg x1 then 100 mg daily. 3. Repeat CBC and CRP tomorrow. 4. We will follow up on his clinical condition. Repeat culture to further adjust medication if needed. Thank you for this consultation. Will follow this patient along with you. MMODL / IJN: [id number] /
[2020-05-31 09:44] LABS: African American GFR (CKD) 50.9 (60.0-200.0); Anion Gap 7.2 mmol/L (4.00-12.00); BUN/Creat Ratio 20.63 Ratio (12.00-20.00); C Reactive Protein 5.4 mg/dL (0.0-0.8); Calcium 9.2 mg/dL (8.7-10.3); Carbon Dioxide 28.8 mmol/L (21.6-31.8); Non-African American GFR(CKD) 43.9 (60.0-200.0); Potassium 4.6 mmol/L (3.5-5.5)
--- NOTE | 2020-05-31 10:21 | P.PN ---
Subjective Patient is a 69-year-old male with a known history of hypertension, diabetes type 2 [id number]-broesgczl, hyperlipidemia and history of TN status post cardiac catheterization and currently everyday smoker presents to ER due to complaints of lower abdominal pain and dysuria and increased urinary frequency. Patient is being treated for urinary tract infection with Macrobid since last Friday. Patient continued to have flank pain, lower abdominal pain and fever and chills at home. No complaints of chest pain or shortness of breath. Patien t says that he had trouble voiding completely., Denied any recent illnesses otherwise. Patient was found to have sodium level CXIV, potassium 5.6, blood sugar: 98 and BUN 31 and creatinine 2.0 and lactic acid 2.5 on admission Urinalysis showed trace protein and 4+ glucose moderate blood, large leukocyte esterase and elevated WBC count. Covid 19 PCR not detected. 05/28/2020 Patient is currently sitting in a chair comfortably. No complaints of chest pain or shortness breath. Patient is able to tolerate oral diet. Blood sugar is better controlled. A1c level is 15.8. Insulin dose was adjusted. Renal function is improving. Patient has been afebrile. No nausea vomiting or diarrhea. No cough or sputum production. Anticipate discharge in the next 24 hours. Patient will need insulin regimen upon discharge. Subjective: 05/29/2020 This is a pleasant 69 years old male who presents with altered mental status, mostly metabolic encephalopathy secondary to UTI. Was treated with ceftriaxone. Also on admission he has a KI and bilateral hydronephrosis with a glucose more than 1000 on admission Today he was sitting in the chair fully awake and oriented, he knows in the hospital and [facility] and he can tell why he is in the hospital. He denies any urinary symptoms currently he says his dysuria on admission has improved. However he complains from urgency and some incontinence. Nunn catheter was discontinued and he is able to be. We will check bladder scan At home he was taking Januvia and glipizide and Actos which were stopped now and he was started on insulin Levemir 21 units at bedside +7 units of short acting insulin with meals. Cable Braider team on the case and his creatinine improving down to 1.6 today. urologist has been consulted 05/30/2020 Patient thinks he is improved, he has some difficulty walking due to his UTI and mild diarrhea but no abdominal pain or nausea vomiting.\ Urologist evaluated the patient and Nunn catheter was discontinued. We going to recheck his PVR. Urologist is of more than 300 then reinsert Nunn catheter. Creatinine is improving down to 1.3 but leukocytosis is worsened, he is already on Rocephin and urine culture was negative. We are going to repeat urinalysis Primary urologist patient will need cystoscopy as an outpatient and change his stent in 2 months, patient informed and he agrees. He was instructed to follow up with urologist for example Dr. Philip or Dr. lyles in 1-2 weeks and he agrees He agrees with the current management of his diabetes with insulin 10 units twice a day and 7 units with meals, he states that he knows how to inject himself with insulin as he did before. Patient was instructed to check his glucose 4 times a day before each meal and at bedtime and to keep it in a logic book and presented to on his appointment date. Patient was instructed to call 911 on come to emergency room if his glucose less than 70 or more than 400s 05/31/2020 patient with known urinary symptoms except for some incontinence. No burning or urgency, no suprapubic tenderness, no fever. Post void residual checked yesterday was 140 mL. Over patient felt Rocephin treatment and antibiotic was switched to Levaquin. Repeat urine analysis shows showing persistent UTI. Repeat urine culture is pending. Infectious disease team on the case creatinine 1.3-1.6 today, nephrology team on the case. CBC is pending Objective - Vital Signs Vital signs: Vital Signs Temp 98.2 F 05/31/20 07:32 Pulse 95 05/31/20 07:32 Resp 20 05/31/20 07:32 BP 106/71 05/31/20 07:32 Pulse Ox 97 05/31/20 07:32 Intake & Output 05/30/20 05/31/20 05/31/20 18:59 06:59 18:59 Output Total 300 Balance -300 Output: Urine 300 Other: Voiding Method Urinal Incontinent # Voids 2 # Bowel Movements 3 - Exam GENERAL: The patient is alert and oriented x3, not in any acute distress. Well developed, well nourished. HEENT: Pupils are round and equally reacting to light. EOMI. No scleral icterus. No conjunctival pallor. Normocephalic, atraumatic. No pharyngeal erythema. No thyromegaly. CARDIOVASCULAR: S1 and S2 present. No murmurs, rubs, or gallops. PULMONARY: Chest is clear to auscultation, no wheezing or crackles. ABDOMEN: Soft, nontender, nondistended, normoactive bowel sounds. No palpable organomegaly. MUSCULOSKELETAL: No joint swelling or deformity. EXTREMITIES: No cyanosis, clubbing, or pedal edema. NEUROLOGICAL: Gross neurological examination did not reveal any focal deficits. SKIN: No rashes. no petechiae. - Labs CBC & Chem 7: 05/30/20 05:49 05/31/20 06:15 Labs: Abnormal Lab Results - Last 24 Hours (Table) 05/30/20 05/30/20 05/30/20 Range/Units 11:53 14:15 16:46 BUN (9.0-27.0) mg/dL Creatinine (0.6-1.5) mg/dL Est GFR (CKD-EPI)AfAm (60.0-200.0) Est GFR (CKD-EPI)NonAf (60.0-200.0) BUN/Creatinine Ratio (12.00-20.00) Ratio Glucose (70-110) mg/dL POC Glucose (mg/dL) 130 H 196 H (75-99) mg/dL C-Reactive Protein (0.0-0.8) mg/dL Urine Protein 1+ H (Negative) Urine Blood Moderate H (Negative) Ur Leukocyte Esterase Large H (Negative) Urine RBC 29 H (0-5) /hpf Urine WBC >182 H (0-5) /hpf Urine WBC Clumps Many H (None) /hpf Urine Bacteria Occasional H (None) /hpf Urine Yeast (Budding) Occasional H (None) /hpf 05/30/20 05/31/20 05/31/20 Range/Units 20:13 06:15 06:41 BUN 33.0 H (9.0-27.0) mg/dL Creatinine 1.6 H (0.6-1.5) mg/dL Est GFR (CKD-EPI)AfAm 50.9 L (60.0-200.0) Est GFR (CKD-EPI)NonAf 43.9 L (60.0-200.0) BUN/Creatinine Ratio 20.63 H (12.00-20.00) Ratio Glucose 310 H (70-110) mg/dL POC Glucose (mg/dL) 202 H 278 H (75-99) mg/dL C-Reactive Protein 5.4 H (0.0-0.8) mg/dL Urine Protein (Negative) Urine Blood (Negative) Ur Leukocyte Esterase (Negative) Urine RBC (0-5) /hpf Urine WBC (0-5) /hpf Urine WBC Clumps (None) /hpf Urine Bacteria (None) /hpf Urine Yeast (Budding) (None) /hpf Microbiology - Last 24 Hours (Table) 05/26/20 23:38 Blood Culture - Preliminary Blood No Growth after 96 hours 05/26/20 19:18 Blood Culture - Preliminary Blood No Growth after 96 hours 05/30/20 14:15 Urine Culture - Preliminary Urine,Clean Catch Assessment and Plan Assessment: Acute urinary tract infection. Failed outpatient therapy with Macrobid. urine cx negative Bilateral hydronephrosis Hyperglycemia with uncontrolled diabetes type 2 qpr-[id number]-[id number] a1 c 15.8 Hyponatremia. Due to Hypovolemic and hyperglycemia. improved. Acute kidney injury was likely prerenal Lactic acidosis due to hypovolemia. Improved Mild hyperkalemia secondary to acute kidney injury. Improving now Paroxysmal atrial fibrillation on anticoagulation with Eliquis Hypertension Hyperlipidemia Previous history of smoking History of TN status post cardiac catheterization. Obesity Plan: This is a pleasant 69 years old male who presents with UTI, bilateral hydronephrosis suspected secondary to blood clots or mass. Cable Braider and urologist on the case. . Continue with Levaquin and follow-up. Urine culture. Follow-up infectious disease team Labs and medication were reviewed.. Continue same treatment. Continue with symptomatic treatment. Resume home medication. Monitor lytes and vitals. DVT and GI prophylaxis. Further recommendationsas per clinical course of the patient DVT prophylaxis: Eliquis GI Prophylaxis: Pepcid PT/OT: Home Prognosis is guarded
[2020-05-31 10:44] LABS: HCT 43.7 % (39.6-50.0); HGB 14.3 g/dL (13.0-17.0); MCH 31.4 pg (27.0-32.0); MCHC 32.7 g/dL (32.0-37.0); Mean Platelet Volume 10.8 fL (9.5-12.2); Platelet Count 410 X 10*3/uL (140-440); RBC 4.55 X 10*6/uL (4.40-5.60); RDW 12.7 % (11.5-14.5); WBC 12.46 X 10*3/uL (4.50-10.00)
[2020-05-31 10:45] LABS: Basophils # (M) 0 X 10*3/uL (0.00-0.10); Eosinophils # (M) 0 X 10*3/uL (0.04-0.35); Metamyelocytes % 1 % (0-0); Monocytes # (M) 1.25 X 10*3/uL (0.20-1.00); Myelocytes % 2 % (0-0); Neutrophils # (M) 9.84 X 10*3/uL (2.00-8.90); Neutrophils % (M) 79 %
[2020-05-31 11:41] LABS: Glucose,Whole Blood 254 mg/dL (75-99)
--- NOTE | 2020-05-31 13:15 | PN ---
PROGRESS NOTE Patient is seen for followup for hyponatremia and acute kidney injury. Renal function has improved. Serum sodium also has improved and staying at about 135. Patient was noted to have urine retention, bilateral hydronephrosis, and he is being followed by Urology. He is maintained on Flomax. PHYSICAL EXAMINATION: On examination today, blood pressure was 106/71, heart rate 95 per minute. He is afebrile. EXAMINATION OF THE HEART: S1, S2. EXAMINATION OF LUNGS: Bilateral breath sounds are heard. Abdomen is soft, nontender. Examination of lower extremities shows chronic skin changes. No significant edema noted. LABS: Labs show sodium 135, potassium 4.6, chloride 99, BUN 33, creatinine 1.6, hemoglobin 14.3 g/dL. ASSESSMENT: 1. Acute kidney injury on admission associated with hypovolemia, status post IV fluids and improved. 2. Urinary tract infection. Urine culture grew yeast. Patient has been started on Diflucan. 3. Hyponatremia associated with severe hyperglycemia. 4. Severe hyperglycemia on admission, now resolved. 5. Urine retention, bilateral hydronephrosis, being followed by Urology, maintained on Flomax. Repeat postvoid residual was only about 100. PLAN: Follow up with Urology as outpatient. Follow up with Nephrology also as outpatient. Continue with the Flomax for now. Continue Diflucan for UTI with yeast. MMODL / IJN: [id number] /
[2020-05-31 16:37] LABS: Glucose,Whole Blood 172 mg/dL (75-99)
[2020-05-31 20:09] LABS: Glucose,Whole Blood 174 mg/dL (75-99)
[2020-05-31] MEDS: ATORVASTATIN 80 MG TAB PO SCH (20:13)
[2020-05-31] MEDS ORDERED: INSULIN DETEMIR (LEVEMIR) 100 UNIT/ML SYR SQ SCH (22:30)
--- NOTE | 2020-05-31 23:05 | PN ---
PROGRESS NOTE DATE OF SERVICE: 05/31/2020 REASON FOR FOLLOWUP: UTI and leukocytosis. INTERVAL HISTORY: The patient is currently afebrile. The patient is breathing comfortably. The patient denies having any chest pain or shortness of breath or cough. No nausea, no vomiting, no abdominal pain or diarrhea. PHYSICAL EXAMINATION: Blood pressure 111/70 with a pulse of 98, temperature 99. He is 98% on room air. General description is an elderly male up in the chair in no distress. RESPIRATORY SYSTEM: Unlabored breathing. Clear to auscultation anteriorly. HEART: S1, S2. Regular rate and rhythm. ABDOMEN: Soft. No tenderness. LABS: Hemoglobin is 14.3, white count of 12.46, creatinine is 1.6. DIAGNOSTIC IMPRESSION AND PLAN: Patient with leukocytosis, multifactorial, with a component of urinary tract infection. Both urine cultures have been negative, though there was evidence of yeast, and the patient's white count responded to diflucan. Recommend to continue the patient on on discharge and close outpatient followup. MMODL / IJN: [id number] /
[2020-06-01 06:46] LABS: Glucose,Whole Blood 143 mg/dL (75-99)
[2020-06-01] MEDS ORDERED: INSULIN DETEMIR (LEVEMIR) 100 UNIT/ML SYR SQ SCH (07:00)
[2020-06-01] MEDS: APIXABAN 5 MG TAB PO SCH (07:17)
[2020-06-01] MEDS: INSULIN ASPART (NovoLOG) 100 UNIT/ML VIAL SQ SCH ×4 (07:17→11:43)
[2020-06-01] MEDS: METOPROLOL TARTRATE 50 MG TAB PO SCH (07:18)
[2020-06-01] MEDS: SERTRALINE 100 MG TAB PO SCH (07:18)
[2020-06-01] MEDS: TAMSULOSIN 0.4 MG CAP.ER.24H PO SCH (07:18)
[2020-06-01] MEDS: FAMOTIDINE 20 MG TAB PO SCH (07:18)
[2020-06-01] MEDS: FLUCONAZOLE 100 MG TAB PO SCH (07:18)
[2020-06-01 07:42] VITALS: RESP 18
[2020-06-01 11:38] LABS: Glucose,Whole Blood 135 mg/dL (75-99)
[2020-06-01 14:23] VITALS: PULSE 90; TEMP 98.5
[2020-06-01 15:14] VITALS: BP 103/69
--- NOTE | 2020-06-01 15:33 | PN ---
PROGRESS NOTE The patient is seen for followup for hyponatremia which has resolved and also acute kidney injury. Renal function has improved since admission. Serum creatinine was down to 1.6 yesterday from 2.0 on initial admission. Patient has underlying obstructive uropathy, bilateral hydronephrosis and some degree of urine retention, which has improved now. He is being followed by Urology currently no indwelling catheter. Patient is maintained on Flomax. He has been started on Diflucan for yeast UTI. PHYSICAL EXAMINATION: On examination today, blood pressure was 92/58, heart rate 87 per minute. He is afebrile. EXAMINATION OF THE HEART: S1, S2. EXAMINATION OF THE LUNGS: Bilateral breath sounds are heard. Abdomen is soft, nontender. Examination of lower extremities shows no significant edema. FAMILY [employer] LEGAL ASSISTANT exam grossly intact. LABS: Labs show sodium of 135, potassium 4.6, chloride 99, BUN 33, serum creatinine 1.6, hemoglobin 14.3 g/dL. ASSESSMENT: 1. Acute kidney injury secondary to urine retention obstructive uropathy as well as prerenal component, currently improved. Postvoid residuals have not been elevated. The patient is maintained on Flomax. He will follow up as outpatient with Urology. 2. Chronic kidney disease. Previous creatinine as low as 1.0 in 2019, but now staying at about 1.3-1.6 mg/dL. 3. Yeast urinary tract infection, maintained on Diflucan. 4. Severe hyperglycemia on admission, now resolved. PLAN: Follow up as outpatient for CKD. MMODL / IJN: [id number] /
--- NOTE | 2020-06-01 21:20 | P.DS ---
Providers Date of admission: 05/26/20 20:31 Attending physician: Fady Bran Consults: 05/26/20 23:12 Consult Physician Stat Consulting Provider: Freddy Gonzalez Consult Reason/Comments: ICU managment Do you want consulting provider notified?: Already Contacted 05/26/20 23:25 Consult Physician Stat Consulting Provider: Vashti Landers Consult Reason/Comments: Hyponatremia Do you want consulting provider notified?: Yes 05/28/20 13:25 Consult Physician Routine Consulting Provider: Taiwo Dorado Consult Reason/Comments: hydronephrosis Do you want consulting provider notified?: Yes 05/30/20 15:03 Consult Physician Routine Consulting Provider: Dae Medina Consult Reason/Comments: uti Do you want consulting provider notified?: Already Contacted 05/30/20 15:04 Consult Physician Routine Consulting Provider: Dae Medina Consult Reason/Comments: increased leukocytosis, positive urinalysis Do you want consulting provider notified?: Yes [facility]: Diagnoses: Acute urinary tract infection. Failed outpatient therapy with Macrobid. urine cx negative Bilateral hydronephrosis Hyperglycemia with uncontrolled diabetes type 2 [id number] a1 c 15.8 Hyponatremia. Due to Hypovolemic and hyperglycemia. improved. Acute kidney injury was likely prerenal Lactic acidosis due to hypovolemia. Improved Mild hyperkalemia secondary to acute kidney injury. Improving now Paroxysmal atrial fibrillation on anticoagulation with Eliquis Chronic kidney disease, stage III Hypertension Hyperlipidemia Previous history of smoking History of FL status post cardiac catheterization. [facility] Hospital course: Patient is a 69-year-old male with a known history of hypertension, diabetes type 2 exf-fattcxz-cqyszsmek, hyperlipidemia and history of FL status post cardiac catheterization and currently everyday smoker presents to ER due to complaints of lower abdominal pain and dysuria and increased urinary frequency. Patient is being treated for urinary tract infection with Macrobid since last Friday. Patient continued to have flank pain, lower abdominal pain and fever and chills at home. No complaints of chest pain or shortness of breath. Patient says that he had trouble voiding completely., Denied any recent illnesses otherwise. Patient was found to have sodium level CXIV, potassium 5.6, blood sugar: 98 and BUN 31 and creatinine 2.0 and lactic acid 2.5 on admission Urinalysis showed trace protein and 4+ glucose moderate blood, large leukocyte esterase and elevated WBC count. Covid 19 PCR not detected. 05/28/2020 This is a pleasant 69 years old male who presents with altered mental status, mostly metabolic encephalopathy secondary to UTI. Was treated with ceftriaxone. Also on admission he has BRENDEN and bilateral hydronephrosis with a glucose more than 1000 on admission Patient was treated with antibiotics ceftriaxone and is clinical condition showed interval improvement, over the last 5-6 days prior to discharge he was f ully awake and oriented, no specific complaint. He had a Nunn catheter and it was discontinued, post void residual was checked several times and it was low, and on the day of discharge it was 71 mL only He was evaluated by keno writer and urologist, ultrasound showed bilateral hydronephrosis and keno writer recommended outpatient follow-up for cystoscopy and repeat ultrasound of the kidney, patient informed and agrees, patient also was started on Flomax. His acute kidney injury was not used to be prerenal on the top of obstructive uropathy, and his creatinine improved significantly prior to discharge and back to baseline 1.3-1.6. Repeat urinalysis was still suspicious for infection, 2 samples urine cultures were obtained and show no growth, fungal infection in the urine is suspected per ID team and patient was placed and Diflucan with recommendation for 1 week course of outpatient Diflucan per ID team, and is a provided for the patient Patient back to baseline and over the last 3 days he was so eager to go home. On the day of discharge he denies any symptoms, no chest pain or dyspnea, no abdominal pain, no nausea vomiting, no back pain, no fever, no urinary symptoms of dysuria or change in frequency She was cleared for discharge by neurologist, keno writer and infectious disease Problems and management plan were discussed with the patient and he verbalized understanding and acceptance Patient was found stable and can be discharged home however he needs follow-up as an outpatient. Patient was instructed to follow up with PCP Dr. Miner within one week and patient agrees Patient was instructed to follow up with keno writer Dr. Landers in 10 days and urologist 1 week and patient agrees. Staff tried to contact neurologist office and stated that he'll call the patient for appointment. Physical exam Gen: patient is a AAOx3, no distress CVS: S1-S2, RRR, no murmur Lungs: B/L CTA, no wheezing Abdomen: soft, no distention, no tenderness, positive bowel sounds Extremity: no leg edema or induration Time spent more than 35 minutes Today he was sitting in the chair fully awake and oriented, he knows in the hospital and [facility] and he can tell why he is in the hospital. He denies any urinary symptoms currently he says his dysuria on admission has improved. However he complains from urgency and some incontinence. Nunn catheter was discontinued and he is able to be. We will check bladder scan At home he was taking Januvia and glipizide and Actos which were stopped now and he was started on insulin Levemir 21 units at bedside +7 units of short acting insulin with meals. [employer] team on the case and his creatinine improving down to 1.6 today. urologist has been consulted 05/30/2020 Patient thinks he is improved, he has some difficulty walking due to his UTI and mild diarrhea but no abdominal pain or nausea vomiting.\ Urologist evaluated the patient and Nunn catheter was discontinued. We going to recheck his PVR. Urologist is of more than 300 then reinsert Nunn catheter. Creatinine is improving down to 1.3 but leukocytosis is worsened, he is already on Rocephin and urine culture was negative. We are going to repeat urinalysis Primary urologist patient will need cystoscopy as an outpatient and change his stent in 2 months, patient informed and he agrees. He was instructed to follow up with urologist for example Dr. Philip or Dr. kathleen in 1-2 weeks and he agrees He agrees with the current management of his diabetes with insulin 10 units twice a day and 7 units with meals, he states that he knows how to inject himself with insulin as he did before. Patient was instructed to check his glucose 4 times a day before each meal and at bedtime and to keep it in a logic book and presented to on his appointment date. Patient was instructed to call 911 on come to emergency room if his glucose less than 70 or more than 400s 05/31/2020 patient with known urinary symptoms except for some incontinence. No burning or urgency, no suprapubic tenderness, no fever. Post void residual checked yesterday was 140 mL. Over patient felt Rocephin treatment and antibiotic was switched to Levaquin. Repeat urine analysis shows showing persistent UTI. Repeat urine culture is pending. Infectious disease team on the case creatinine 1.3-1.6 today, nephrology team on the case. CBC is pending Patient Condition at Discharge: Stable Plan - Discharge Summary Discharge Rx Participant: Yes New Discharge Prescriptions: New Fluconazole [Diflucan] 100 mg PO DAILY 7 Days #7 tab Tamsulosin [Flomax] 0.4 mg PO PC-BRKFST #30 cap.er.24h Insulin Detemir (Levemir) [Levemir] 15 unit SQ BID@0700,2100 #1 vial INSULIN ASPART (NovoLOG) [NovoLOG (formulary)] 7 unit SQ AC-TID #1 vial Continue Sertraline HCl [Zoloft] 100 mg PO DAILY Metoprolol Tartrate [Lopressor] 50 mg PO BID Atorvastatin Calcium [Lipitor] 80 mg PO HS Apixaban [Eliquis] 5 mg PO BID Discontinued Pioglitazone [Actos] 45 mg PO DAILY Nitrofurantoin Monohyd/M-Cryst [Macrobid] 100 mg PO Q12HR glipiZIDE XL [Glucotrol Xl] 10 mg PO BID Dapagliflozin Propanediol [Farxiga] 10 mg PO DAILY Enalapril [Vasotec] 5 mg PO BID Isosorbide Mononitrate [Isosorbide Mononitrate ER] 30 mg PO DAILY sitaGLIPtin PHOSPHATE [Januvia] 100 mg PO DAILY Discharge Medication List Apixaban [Eliquis] 5 mg PO BID 05/26/20 [History] Atorvastatin Calcium [Lipitor] 80 mg PO HS 05/26/20 [History] Metoprolol Tartrate [Lopressor] 50 mg PO BID 05/26/20 [History] Sertraline HCl [Zoloft] 100 mg PO DAILY 05/26/20 [History] Fluconazole [Diflucan] 100 mg PO DAILY 7 Days #7 tab 06/01/20 [Rx] INSULIN ASPART (NovoLOG) [NovoLOG (formulary)] 7 unit SQ AC-TID #1 vial 06/01/20 [Rx] Insulin Detemir (Levemir) [Levemir] 15 unit SQ BID@0700,2100 #1 vial 06/01/20 [Rx] Tamsulosin [Flomax] 0.4 mg PO PC-BRKFST #30 cap.er.24h 06/01/20 [Rx] Follow up Appointment(s)/Referral(s): Vashti Landers MD [STAFF PHYSICIAN] - 10 Days ([facility] [employer]) Yanick Kathleen MD [STAFF PHYSICIAN] - 1 Week (Office will call with appointment time) Gabriel Boyle DO [Primary Care Provider] - 1-2 days Patient Instructions/Handouts: Type 1 Diabetes in Adults: New Diagnosis (DC) Activity/Diet/Wound Care/Special Instructions: Heart healthy diet, low carbohydrate 1800 kcal per day Activity is restricted until you see your doctor We recommend to check her glucose 4 times a day before each meal and at bedtime. Keep the results in a log book and bring it to your her doctor on your appointment date If your glucose less than 70 or more than 400, and call 911 on come to emergency room Discharge Disposition: HOME SELF-CARE
== END 2020-06-01 15:49 | disposition home or self-care (01) | DRG 689 ==
LOC: EC 18:31 → 2SICU 20:31 → 4SSUR 05-27 11:46
PROVIDERS: ADMIT Hospitalist; ATTEND Hospitalist
DX: N13.6 Pyonephrosis (principal); G93.41 Metabolic encephalopathy; E87.0 Hyperosmolality and hypernatremia; E87.1 Hypo-osmolality and hyponatremia; E87.2 Acidosis; E11.22 Type 2 diabetes mellitus with diabetic chronic kidney disease; E11.65 Type 2 diabetes mellitus with hyperglycemia; E66.9 Obesity, unspecified; Z20.822 Contact with and (suspected) exposure to COVID-19; E78.5 Hyperlipidemia, unspecified; E86.1 Hypovolemia; E87.5 Hyperkalemia; F17.200 Nicotine dependence, unspecified, uncomplicated; I12.9 Hypertensive chronic kidney disease with stage 1 through stage 4 chronic kidney disease, or unspecified chronic kidney disease; I25.10 Atherosclerotic heart disease of native coronary artery without angina pectoris; I48.0 Paroxysmal atrial fibrillation; N17.9 Acute kidney failure, unspecified; N18.30 Chronic kidney disease, stage 3 unspecified; I25.2 Old myocardial infarction; Z87.440 Personal history of urinary (tract) infections; Z79.899 Other long term (current) drug therapy; Z79.4 Long term (current) use of insulin; Z79.01 Long term (current) use of anticoagulants
CPT/HCPCS: 36415; 51702; 51798; 76770; 80048; 80051; 80053; 81001; 82565; 82947; 83036; 83605; 84100; 84145; 84520; 85025; 86140; 87040; 87086; 87324; 87635; 96361; 96365; 99291

== ENCOUNTER 2020-07-02 13:39 | Emergency (ER) | payer MEDICARE, OTHER ==
[2020-07-02 13:49] VITALS: TEMP 98
[2020-07-02 13:50] LABS: Glucose,Whole Blood 542 mg/dL (75-99)
[2020-07-02 14:25] LABS: Appearance,Urine Cloudy (Clear); Bilirubin,Urine Negative (Negative); Blood,Urine Small (Negative); Color,Urine Light Yellow; Glucose,Urine (UA) 4+ (Negative); Ketones,Urine Negative (Negative); Leukocyte Esterase,Urine Large (Negative); Nitrite,Urine Negative (Negative); Protein,Urine Negative (Negative); RBC,Urine 5 /hpf (0-5); Specific Gravity,Urine 1.019 (1.001-1.035); Urobilinogen,Urine <2.0 mg/dL (<2.0); WBC,Urine 63 /hpf (0-5)
[2020-07-02] MEDS ORDERED: SODIUM CHLORIDE 0.9% 1,000 ML IV ONE ×2 (14:40→16:12)
[2020-07-02] MEDS ORDERED: INSULIN REGULAR 100 UNIT/ML VIAL IV ONE (14:47)
--- NOTE | 2020-07-02 15:22 | ED ---
General Adult HPI - General Chief complaint: Recheck/Abnormal Lab/Rx Stated complaint: HIGH SUGAR 540 1 HOUR AGO Time Seen by Provider: 07/02/20 14:25 Source: patient, RN notes reviewed Mode of arrival: ambulatory Limitations: no limitations - History of Present Illness Initial comments: This a 69-year-old male presents emergency department to complaint of hyperglycemia. Patient states that he knows blood sugar was high last night himself extra insulin. Patient states his blood sugar has been steadily rising today. Patient states he believes his urinary tract infection his back he does complain of mild dysuria he states he feels slightly fatigued slight nausea no vomiting no chest pain or shortness breath no headache or dizziness currently. - Related Data Home Medications Medication Instructions Recorded Confirmed Apixaban [Eliquis] 5 mg PO BID 05/26/20 05/26/20 Atorvastatin Calcium [Lipitor] 80 mg PO HS 05/26/20 05/26/20 Metoprolol Tartrate [Lopressor] 50 mg PO BID 05/26/20 05/26/20 Sertraline HCl [Zoloft] 100 mg PO DAILY 05/26/20 05/26/20 Previous Rx's Medication Instructions Recorded Fluconazole [Diflucan] 100 mg PO DAILY 7 Days #7 tab 06/01/20 INSULIN ASPART (NovoLOG) [NovoLOG 7 unit SQ AC-TID #1 vial 06/01/20 (formulary)] Insulin Detemir (Levemir) [Levemir] 15 unit SQ BID@0700,2100 #1 vial 06/01/20 Tamsulosin [Flomax] 0.4 mg PO PC-BRKFST #30 cap.er.24h 06/01/20 Ciprofloxacin HCl [Cipro] 500 mg PO Q12HR #20 tablet 07/02/20 Allergies Allergy/AdvReac Type Severity Reaction Status Date / Time Sulfa (Sulfonamide Allergy Unknown Verified 05/26/20 21:02 Antibiotics) Review of Systems ROS Statement: Those systems with pertinent positive or pertinent negative responses have been documented in the HPI. ROS Other: All systems not noted in ROS Statement are negative. Past Medical History Past Medical History: Coronary Artery Disease (CAD), Diabetes Mellitus, Hyperlipidemia, Hypertension, Myocardial Infarction (SD) Last Myocardial Infarction Date:: 1972 History of Any Multi-Drug Resistant Organisms: None Reported Past Surgical History: Heart Catheterization Additional Past Anesthesia/Blood Transfusion Reaction / Comment(s): No previous transfusion Past Psychological History: No Psychological Hx Reported Smoking Status: Current every day smoker Past Alcohol Use History: None Reported Past Drug Use History: None Reported General Exam Limitations: no limitations General appearance: alert, in no apparent distress Head exam: Present: atraumatic, normocephalic, normal inspection Eye exam: Present: normal appearance, PERRL, EOMI. Absent: scleral icterus, conjunctival injection, periorbital swelling ENT exam: Present: normal exam, normal oropharynx, mucous membranes moist Neck exam: Present: normal inspection, full ROM. Absent: tenderness, meningismus, lymphadenopathy Respiratory exam: Present: normal lung sounds bilaterally. Absent: respiratory distress, wheezes, rales, rhonchi, stridor Cardiovascular Exam: Present: regular rate, normal rhythm, normal heart sounds. Absent: systolic murmur, diastolic murmur, rubs, gallop, clicks GI/Abdominal exam: Present: soft, normal bowel sounds. Absent: distended, tenderness, guarding, rebound, rigid Neurological exam: Present: alert, oriented X3 Skin exam: Present: warm, dry, intact, normal color. Absent: rash Course Vital Signs 07/02/20 13:46 Temperature 98.0 F Pulse Rate 93 Respiratory 18 Rate Blood Pressure 119/79 O2 Sat by Pulse 97 Oximetry EKG Findings - EKG Comments: EKG Findings:: EKG performed at 16:14 A. fib Rate of 83 QRS 98 QT status QTC 398/462 Medical Decision Making - Medical Decision Making 69-year-old presented for hyperglycemia blood sugars and improved at this time after 2 L of fluids, IV insulin. Patient's blood sugar 203 patient does have evidence urinary tract infection. No significant abnormalities of his electro lytes. Patient feels comfortable discharged with oral antibiotics and return parameters. - Lab Data Result diagrams: 07/02/20 15:30 Lab Results 07/02/20 07/02/20 07/02/20 Range/Units 13:48 14:06 15:30 WBC 5.9 (3.8-10.6) k/uL RBC 4.74 (4.30-5.90) m/uL Hgb 15.2 (13.0-17.5) gm/dL Hct 45.7 (39.0-53.0) % MCV 96.6 (80.0-100.0) fL MCH 32.0 (25.0-35.0) pg MCHC 33.2 (31.0-37.0) g/dL RDW 12.8 (11.5-15.5) % Plt Count 220 (150-450) k/uL MPV 8.0 Neutrophils % 64 % Lymphocytes % 28 % Monocytes % 5 % Eosinophils % 2 % Basophils % 0 % Neutrophils # 3.8 (1.3-7.7) k/uL Lymphocytes # 1.7 (1.0-4.8) k/uL Monocytes # 0.3 (0-1.0) k/uL Eosinophils # 0.1 (0-0.7) k/uL Basophils # 0.0 (0-0.2) k/uL PT (9.0-12.0) sec INR (<1.2) APTT (22.0-30.0) sec POC Glucose (mg/dL) 542 H (75-99) mg/dL POC Glu Supervisor Roving Department ID Hollis, Leilani Plasma Lactic Acid Lambert (0.7-2.0) mmol/L Troponin I (0.000-0.034) ng/mL Urine Color Light Yellow Urine Appearance Cloudy (Clear) Urine pH 6.0 (5.0-8.0) Ur Specific [place] 1.019 (1.001-1.035) Urine Protein Negative (Negative) Urine Glucose (UA) 4+ H (Negative) Urine Ketones Negative (Negative) Urine Blood Small H (Negative) Urine Nitrite Negative (Negative) Urine Bilirubin Negative (Negative) Urine Urobilinogen <2.0 (<2.0) mg/dL Ur Leukocyte Esterase Large H (Negative) Urine RBC 5 (0-5) /hpf Urine WBC 63 H (0-5) /hpf Urine WBC Clumps Few H (None) /hpf Acetone, Qual (Negative) 07/02/20 07/02/20 07/02/20 Range/Units 15:30 15:30 15:32 WBC (3.8-10.6) k/uL RBC (4.30-5.90) m/uL Hgb (13.0-17.5) gm/dL Hct (39.0-53.0) % MCV (80.0-100.0) fL MCH (25.0-35.0) pg MCHC (31.0-37.0) g/dL RDW (11.5-15.5) % Plt Count (150-450) k/uL MPV Neutrophils % % Lymphocytes % % Monocytes % % Eosinophils % % Basophils % % Neutrophils # (1.3-7.7) k/uL Lymphocytes # (1.0-4.8) k/uL Monocytes # (0-1.0) k/uL Eosinophils # (0-0.7) k/uL Basophils # (0-0.2) k/uL PT 10.8 (9.0-12.0) sec INR 1.0 (<1.2) APTT 28.1 (22.0-30.0) sec POC Glucose (mg/dL) (75-99) mg/dL POC Glu Supervisor Roving Department ID Plasma Lactic Acid Lambert (0.7-2.0) mmol/L Troponin I <0.012 (0.000-0.034) ng/mL Urine Color Urine Appearance (Clear) Urine pH (5.0-8.0) Ur Specific [place] (1.001-1.035) Urine Protein (Negative) Urine Glucose (UA) (Negative) Urine Ketones (Negative) Urine Blood (Negative) Urine Nitrite (Negative) Urine Bilirubin (Negative) Urine Urobilinogen (<2.0) mg/dL Ur Leukocyte Esterase (Negative) Urine RBC (0-5) /hpf Urine WBC (0-5) /hpf Urine WBC Clumps (None) /hpf Acetone, Qual Negative (Negative) 07/02/20 07/02/20 Range/Units 15:32 16:41 WBC (3.8-10.6) k/uL RBC (4.30-5.90) m/uL Hgb (13.0-17.5) gm/dL Hct (39.0-53.0) % MCV (80.0-100.0) fL MCH (25.0-35.0) pg MCHC (31.0-37.0) g/dL RDW (11.5-15.5) % Plt Count (150-450) k/uL MPV Neutrophils % % Lymphocytes % % Monocytes % % Eosinophils % % Basophils % % Neutrophils # (1.3-7.7) k/uL Lymphocytes # (1.0-4.8) k/uL Monocytes # (0-1.0) k/uL Eosinophils # (0-0.7) k/uL Basophils # (0-0.2) k/uL PT (9.0-12.0) sec INR (<1.2) APTT (22.0-30.0) sec POC Glucose (mg/dL) 203 H (75-99) mg/dL POC Glu Supervisor Roving Department ID Clayton Daniel Plasma Lactic Acid Lambert 1.3 (0.7-2.0) mmol/L Troponin I (0.000-0.034) ng/mL Urine Color Urine Appearance (Clear) Urine pH (5.0-8.0) Ur Specific [place] (1.001-1.035) Urine Protein (Negative) Urine Glucose (UA) (Negative) Urine Ketones (Negative) Urine Blood (Negative) Urine Nitrite (Negative) Urine Bilirubin (Negative) Urine Urobilinogen (<2.0) mg/dL Ur Leukocyte Esterase (Negative) Urine RBC (0-5) /hpf Urine WBC (0-5) /hpf Urine WBC Clumps (None) /hpf Acetone, Qual (Negative) Disposition Clinical Impression: Hyperglycemia, Urinary tract infection Disposition: HOME SELF-CARE Condition: Stable Instructions (If sedation given, give patient instructions): Urinary Tract I nfection in Men (ED) Additional Instructions: Please return to the Emergency Department if symptoms worsen or any other concerns. Prescriptions: Ciprofloxacin HCl [Cipro] 500 mg PO Q12HR #20 tablet Is patient prescribed a controlled substance at d/c from ED?: No Referrals: Gabriel Boyle DO [Primary Care Provider] - 1-2 days Time of Disposition: 16:52
[2020-07-02 15:53] LABS: Basophils % (A) 0 %; Eosinophils # (A) 0.1 k/uL (0-0.7); Eosinophils % (A) 2 %; HCT 45.7 % (39.0-53.0); HGB 15.2 gm/dL (13.0-17.5); Lymphocytes # (A) 1.7 k/uL (1.0-4.8); Lymphocytes % (A) 28 %; MCHC 33.2 g/dL (31.0-37.0); MCV 96.6 fL (80.0-100.0); Monocytes # (A) 0.3 k/uL (0-1.0); Monocytes % (A) 5 %; Neutrophils # (A) 3.8 k/uL (1.3-7.7); Neutrophils % (A) 64 %; Platelet Count 220 k/uL (150-450); RBC 4.74 m/uL (4.30-5.90); RDW 12.8 % (11.5-15.5); WBC 5.9 k/uL (3.8-10.6)
[2020-07-02 16:12] LABS: Partial Thromboplastin Time 28.1 sec (22.0-30.0); Prothrombin Time 10.8 sec (9.0-12.0)
[2020-07-02 16:45] LABS: Glucose,Whole Blood 203 mg/dL (75-99)
[2020-07-02 17:03] VITALS: BP 126/84; PULSE 90; RESP 20
== END 2020-07-02 17:04 | disposition home or self-care (01) ==
LOC: EC 13:39
DX: E11.65 Type 2 diabetes mellitus with hyperglycemia (principal); N39.0 Urinary tract infection, site not specified; E78.5 Hyperlipidemia, unspecified; I10 Essential (primary) hypertension; I25.2 Old myocardial infarction; F17.200 Nicotine dependence, unspecified, uncomplicated
CPT/HCPCS: 36415; 81001; 82009; 83605; 84484; 85025; 85610; 85730; 87040; 87086; 93005; 96361; 96365; 96375; 99285

== ENCOUNTER → 2021-01-29 | Outpatient (CLI) | payer MEDICARE, OTHER ==
--- NOTE | 2021-01-29 21:50 | US ---
EXAMINATION TYPE: US kidneys/renal and bladder DATE OF EXAM: 01/29/2021 COMPARISON: Prior renal ultrasound May 27, 2020 CLINICAL HISTORY: R31.2 MICROSCOPIC HEMATURIA,N40.1. Bladder incontinence, HTN, history of renal ston es, BPH. EXAM MEASUREMENTS: Right Kidney: 13.4 x 5.4 x 5.7 cm Left Kidney: 13.0 x 5.6 x 6.1 cm Right Kidney: Hydronephrosis, with anechoic areas 1. Inferior 1.8 x 1.7 x 1.9 cm 2. Mid 1.7 x 1.6 x 1.4 cm Left Kidney: Hydronephrosis with anechoic area superior 1. Superior 3.2 cm Bladder: Irregular bladder wall Bilateral Jets seen: Yes Enlarged prostate Persistent severe right-sided hydronephrosis with possible additional central thin-walled cysts redem onstrated. Persistent severe left-sided hydronephrosis with exophytic 3.2 cm thin-walled cyst upper p ole level. The urinary bladder is satisfactorily distended with lobulated peripheral margin and inter nal debris or echoes. Prominent prostate gland bulging on the bladder base. Bilateral ureteral jets are seen. IMPRESSION: Persistent severe bilateral hydronephrosis. Persistent distended bladder with abnormal wa ll thickening presumed related to BPH. Source of hematuria not clearly seen. If symptoms persist furt her investigation with CT urogram would be warranted.
== END | disposition home or self-care (01) ==
LOC: RADUSWWP 15:23
PROVIDERS: ATTEND Family Medicine
DX: R31.29 Other microscopic hematuria (principal); N13.30 Unspecified hydronephrosis; N40.1 Benign prostatic hyperplasia with lower urinary tract symptoms; I10 Essential (primary) hypertension
CPT/HCPCS: 76770

== ENCOUNTER → 2021-02-26 | Outpatient (CLI) | payer MEDICARE, OTHER ==
--- NOTE | 2021-02-26 12:30 | CT ---
EXAMINATION TYPE: CT urogram wo/w con DATE OF EXAM: 02/26/2021 COMPARISON: Ultrasound kidneys January 29, 2021 and older study May 27, 2020 HISTORY: microscopic hematuria, hydronephrosis CT DLP: 5424 mGycm, Automated Exposure Control for Dose Reduction was Utilized. CONTRAST: CT scan of the abdomen and pelvis is performed without oral and without and with IV Contrast, patient injected with 100 mL of Isovue 300. Urogram protocol with 3-D reconstructed images created on a [employer] workstation and reviewed FINDINGS: KUB: Noncontrast images show no renal calculi bilaterally. Postcontrast images show symmetric cortico medullary uptake and excretion with persistent severe bilateral hydronephrosis. There are a few simpl e appearing thin-walled cysts bilaterally including largest exophytic 3.7 x 3.0 cm thin-walled cyst l aterally at the midpole level series 9 image 31. There is moderate to severe diffuse hydroureter up t o the bladder. Similar to ultrasound bladder is poorly distended with thickened wall greatest anterio rly and superiorly measuring up to 3.8 cm in thickness. No contrast opacification of the ureters pres umed product of underlying hydronephrosis. LUNG BASES: Mild right basilar linear scarring. Three-vessel coronary artery calcification. LIVER/GB: Single 7 mm dependent calculus in the gallbladder. PANCREAS: Glandular calcifications throughout the pancreas consistent with product of chronic pancrea titis. SPLEEN: No significant abnormality is seen. ADRENALS: No significant abnormality is seen. BOWEL: Colonic diverticula greatest at the level of sigmoid colon. PROSTATE/SEMINAL VESICLES: Enlarged prostate consistent with BPH. Inferior central calcifications. LYMPH NODES: No greater than 1cm abdominal or pelvic lymph nodes are appreciated. There is prominent 9 x 8 mm lymph node along the anterior superior aspect of bladder series 9 image 67 corresponding to coronal image 59 series 19. OSSEOUS STRUCTURES: Mild to moderate multilevel disc space narrowing. Moderate axial joint space loss in both hips. OTHER: Mild to moderate calcified plaque of the aorta extends into branch vessels. IMPRESSION: Persistent enlarged prostate consistent with BPH. Poorly distended bladder currently with severe eccentric wall thickening. Finding likely product of underlying BPH causing outlet obstructio n but neoplasm cannot be excluded. Consider cystoscopy to further evaluate. There is likely obstructi on at the bilateral UVJ from the eccentric wall thickening or neoplasm causing persistent severe bila teral hydronephrosis.
== END | disposition home or self-care (01) ==
LOC: RADCTMAIN 10:11
PROVIDERS: ATTEND Urology
DX: N40.0 Benign prostatic hyperplasia without lower urinary tract symptoms (principal)
CPT/HCPCS: 82565; 84520; 74178; 36415; 74400; Q9967

== ENCOUNTER 2021-05-11 00:51 | Emergency (ER) | payer MEDICARE, OTHER ==
[2021-05-11] MEDS ORDERED: MORPHINE SULFATE 4 MG/ML SYRINGE IV STA ×2 (01:04→04:28)
[2021-05-11] MEDS ORDERED: ONDANSETRON 4 MG/2 ML VIAL IVP STA (01:04)
[2021-05-11] MEDS ORDERED: SODIUM CHLORIDE 0.9% 500 ML 500 ML IV STA ×2 (01:04→03:48)
--- NOTE | 2021-05-11 01:10 | ED ---
Abdominal Pain HPI <Juan Dudley - Last Filed: 05/11/21 06:09> - General Source: RN notes reviewed <Dhiraj Padilla - Last Filed: 05/12/21 02:26> - General Stated Complaint: Leg pain, blood in urine Time Seen by Provider: 05/11/21 00:52 - History of Present Illness Initial Comments: This is a pleasant 70-year-old male with a history of cardiovascular disease and diabetes mellitus. he presents to the emergency room today complaining of generalized body pain involving both arms, both legs, his back. Patient states his been going on for about 2 days. He states it started yesterday. Patient also complaining of hematuria which does not seem to be painful. Patient states yesterday he seemed to be urinating more than usual. No fever or chills. No shortness of breath or chest pain. Patient does have some abdominal discomfort and distention which he states his been there for quite some time. States the abdominal pain is worse than usual. No headache. No vision or hearing changes. No difficulty with speech. States his blood sugars are running good. Patient is on anticoagulation. Patient has not been immunized against COVID-19. (Dihraj Padilla) - Related Data Home Medications Medication Instructions Recorded Confirmed Apixaban [Eliquis] 5 mg PO BID 05/26/20 05/26/20 Atorvastatin Calcium [Lipitor] 80 mg PO HS 05/26/20 05/26/20 Metoprolol Tartrate [Lopressor] 50 mg PO BID 05/26/20 05/26/20 Sertraline HCl [Zoloft] 100 mg PO DAILY 05/26/20 05/26/20 Previous Rx's Medication Instructions Recorded Fluconazole [Diflucan] 100 mg PO DAILY 7 Days #7 tab 06/01/20 INSULIN ASPART (NovoLOG) [NovoLOG 7 unit SQ AC-TID #1 vial 06/01/20 (formulary)] Insulin Detemir (Levemir) [Levemir] 15 unit SQ BID@0700,2100 #1 vial 06/01/20 Tamsulosin [Flomax] 0.4 mg PO PC-BRKFST #30 cap.er.24h 06/01/20 Ciprofloxacin HCl [Cipro] 500 mg PO Q12HR #20 tablet 07/02/20 Allergies Allergy/AdvReac Type Severity Reaction Status Date / Time Sulfa (Sulfonamide Allergy Unknown Verified 05/26/20 21:02 Antibiotics) Review of Systems ROS Other: All systems not noted in ROS Statement are negative. <SeverinopushpaJuan - Last Filed: 05/11/21 06:09> ROS Other: All systems not noted in ROS Statement are negative. <Dhiraj Padilla - Last Filed: 05/12/21 02:26> ROS Statement: Those systems with pertinent positive or pertinent negative responses have been documented in the HPI. Past Medical History Past Medical History: Coronary Artery Disease (CAD), Diabetes Mellitus, Hyperlipidemia, Hypertension, Myocardial Infarction (SC) Last Myocardial Infarction Date:: 1972 History of Any Multi-Drug Resistant Organisms: None Reported Past Surgical History: Heart Catheterization Additional Past Anesthesia/Blood Transfusion Reaction / Comment(s): No previous transfusion Past Psychological History: No Psychological Hx Reported Smoking Status: Current every day smoker Past Alcohol Use History: None Reported Past Drug Use History: None Reported <Dhiraj Padilla - Last Filed: 05/12/21 02:26> General Exam General appearance: alert, in no apparent distress Head exam: Present: atraumatic, normocephalic, normal inspection Eye exam: Present: normal appearance, PERRL, EOMI. Absent: scleral icterus, conjunctival injection, periorbital swelling ENT exam: Present: normal exam, mucous membranes moist Neck exam: Present: normal inspection. Absent: tenderness, meningismus, lymphadenopathy Respiratory exam: Present: normal lung sounds bilaterally. Absent: respiratory distress, wheezes, rales, rhonchi, stridor Cardiovascular Exam: Present: regular rate, normal rhythm, normal heart sounds. Absent: systolic murmur, diastolic murmur, rubs, gallop, clicks GI/Abdominal exam: Present: distended, tenderness, guarding, normal bowel sounds, other (Generalized abdominal tenderness to palpation). Absent: rebound, rigid Extremities exam: Present: normal inspection, full ROM, normal capillary refill. Absent: tenderness, pedal edema, joint swelling, calf tenderness Back exam: Present: normal inspection Neurological exam: Present: alert, oriented X3, CN II-XII intact Psychiatric exam: Present: normal affect, normal mood Skin exam: Present: warm, dry, intact, normal color. Absent: rash <Dhiraj Padilla - Last Filed: 05/12/21 02:26> - General Exam Comments Initial Comments: Patient in mild distress. Does not appear to be toxic. Vital signs reviewed. Patient cranial nerves are intact as tested. Alert and oriented 4. Appears to have mild jaundice. (Dhiraj Padilla) Course Vital Signs 05/11/21 05/11/21 01:09 04:58 Temperature 96.8 F L Pulse Rate 98 90 Respiratory 16 16 Rate Blood Pressure 134/101 141/89 O2 Sat by Pulse 95 95 Oximetry Medical Decision Making - Lab Data Result diagrams: 05/11/21 01:17 05/11/21 01:17 <Juan Dudley - Last Filed: 05/11/21 06:09> - Lab Data Result diagrams: 05/11/21 01:17 05/11/21 01:17 <Dhiraj Padilla - Last Filed: 05/12/21 02:26> - Medical Decision Making This patient is 70-year-old man presenting mainly for evaluation of pains involving the bilateral shoulders bilateral legs. Signed out to me pending results of the computed tomography scan. I discussed these results with the patient and he would like to go home. He states that most of these issues are known problems. He states that he was mainly hoping for some relief from the aches he is having but he does not want stay in the hospital. Given the multiple findings and the CT I do feel he should stay for further evaluation but he would like to follow with his primary physician and specialist as outpatient. (Juan Dudley) Disposition was per the ED attending physician. (Dhiraj Padilla) - Lab Data Lab Results 05/11/21 05/11/21 05/11/21 Range/Units 01:17 01:17 01:17 WBC 7.6 (3.8-10.6) k/uL RBC 4.43 (4.30-5.90) m/uL Hgb 14.0 (13.0-17.5) gm/dL Hct 42.4 (39.0-53.0) % MCV 95.7 (80.0-100.0) fL MCH 31.6 (25.0-35.0) pg MCHC 33.0 (31.0-37.0) g/dL RDW 13.4 (11.5-15.5) % Plt Count 306 (150-450) k/uL MPV 9.7 Neutrophils % 63 % Lymphocytes % 25 % Monocytes % 8 % Eosinophils % 2 % Basophils % 0 % Neutrophils # 4.7 (1.3-7.7) k/uL Lymphocytes # 1.9 (1.0-4.8) k/uL Monocytes # 0.6 (0-1.0) k/uL Eosinophils # 0.1 (0-0.7) k/uL Basophils # 0.0 (0-0.2) k/uL PT (9.0-12.0) sec INR (<1.2) APTT (22.0-30.0) sec Sodium 140 (137-145) mmol/L Potassium 4.2 (3.5-5.1) mmol/L Chloride 104 (98-107) mmol/L Carbon Dioxide 25 (22-30) mmol/L Anion Gap 11 mmol/L BUN 21 H (9-20) mg/dL Creatinine 1.36 H (0.66-1.25) mg/dL Est GFR (CKD-EPI)AfAm 61 (>60 ml/min/1.73 sqM) Est GFR (CKD-EPI)NonAf 53 (>60 ml/min/1.73 sqM) Glucose 229 H (74-99) mg/dL Plasma Lactic Acid Lambert (0.7-2.0) mmol/L Calcium 9.4 (8.4-10.2) mg/dL Total Bilirubin 0.9 (0.2-1.3) mg/dL AST 27 (17-59) U/L ALT 32 (4-49) U/L Alkaline Phosphatase 98 (38-126) U/L Creatine Kinase 49 L (55-170) U/L Troponin I (0.000-0.034) ng/mL Total Protein 7.1 (6.3-8.2) g/dL Albumin 3.7 (3.5-5.0) g/dL Amylase 74 (30-110) U/L Lipase 127 (23-300) U/L Urine Color Light Red Urine Appearance Turbid (Clear) Urine pH 6.0 (5.0-8.0) Ur Specific [place] 1.018 (1.001-1.035) Urine Protein 2+ H (Negative) Urine Glucose (UA) Trace H (Negative) Urine Ketones Negative (Negative) Urine Blood Large H (Negative) Urine Nitrite Negative (Negative) Urine Bilirubin Negative (Negative) Urine Urobilinogen <2.0 (<2.0) mg/dL Ur Leukocyte Esterase Large H (Negative) Urine RBC >182 H (0-5) /hpf Urine WBC >182 H (0-5) /hpf Coronavirus (PCR) (Not Detectd) 05/11/21 05/11/21 05/11/21 Range/Units 01:17 01:17 01:17 WBC (3.8-10.6) k/uL RBC (4.30-5.90) m/uL Hgb (13.0-17.5) gm/dL Hct (39.0-53.0) % MCV (80.0-100.0) fL MCH (25.0-35.0) pg MCHC (31.0-37.0) g/dL RDW (11.5-15.5) % Plt Count (150-450) k/uL MPV Neutrophils % % Lymphocytes % % Monocytes % % Eosinophils % % Basophils % % Neutrophils # (1.3-7.7) k/uL Lymphocytes # (1.0-4.8) k/uL Monocytes # (0-1.0) k/uL Eosinophils # (0-0.7) k/uL Basophils # (0-0.2) k/uL PT 11.6 (9.0-12.0) sec INR 1.1 (<1.2) APTT 32.7 H (22.0-30.0) sec Sodium (137-145) mmol/L Potassium (3.5-5.1) mmol/L Chloride (98-107) mmol/L Carbon Dioxide (22-30) mmol/L Anion Gap mmol/L BUN (9-20) mg/dL Creatinine (0.66-1.25) mg/dL Est GFR (CKD-EPI)AfAm (>60 ml/min/1.73 sqM) Est GFR (CKD-EPI)NonAf (>60 ml/min/1.73 sqM) Glucose (74-99) mg/dL Plasma Lactic Acid Lambert 1.2 (0.7-2.0) mmol/L Calcium (8.4-10.2) mg/dL Total Bilirubin (0.2-1.3) mg/dL AST (17-59) U/L ALT (4-49) U/L Alkaline Phosphatase (38-126) U/L Creatine Kinase (55-170) U/L Troponin I <0.012 (0.000-0.034) ng/mL Total Protein (6.3-8.2) g/dL Albumin (3.5-5.0) g/dL Amylase (30-110) U/L Lipase (23-300) U/L Urine Color Urine Appearance (Clear) Urine pH (5.0-8.0) Ur Specific [place] (1.001-1.035) Urine Protein (Negative) Urine Glucose (UA) (Negative) Urine Ketones (Negative) Urine Blood (Negative) Urine Nitrite (Negative) Urine Bilirubin (Negative) Urine Urobilinogen (<2.0) mg/dL Ur Leukocyte Esterase (Negative) Urine RBC (0-5) /hpf Urine WBC (0-5) /hpf Coronavirus (PCR) (Not Detectd) 05/11/21 Range/Units 01:17 WBC (3.8-10.6) k/uL RBC (4.30-5.90) m/uL Hgb (13.0-17.5) gm/dL Hct (39.0-53.0) % MCV (80.0-100.0) fL MCH (25.0-35.0) pg MCHC (31.0-37.0) g/dL RDW (11.5-15.5) % Plt Count (150-450) k/uL MPV Neutrophils % % Lymphocytes % % Monocytes % % Eosinophils % % Basophils % % Neutrophils # (1.3-7.7) k/uL Lymphocytes # (1.0-4.8) k/uL Monocytes # (0-1.0) k/uL Eosinophils # (0-0.7) k/uL Basophils # (0-0.2) k/uL PT (9.0-12.0) sec INR (<1.2) APTT (22.0-30.0) sec Sodium (137-145) mmol/L Potassium (3.5-5.1) mmol/L Chloride (98-107) mmol/L Carbon Dioxide (22-30) mmol/L Anion Gap mmol/L BUN (9-20) mg/dL Creatinine (0.66-1.25) mg/dL Est GFR (CKD-EPI)AfAm (>60 ml/min/1.73 sqM) Est GFR (CKD-EPI)NonAf (>60 ml/min/1.73 sqM) Glucose (74-99) mg/dL Plasma Lactic Acid Lambert (0.7-2.0) mmol/L Calcium (8.4-10.2) mg/dL Total Bilirubin (0.2-1.3) mg/dL AST (17-59) U/L ALT (4-49) U/L Alkaline Phosphatase (38-126) U/L Creatine Kinase (55-170) U/L Troponin I (0.000-0.034) ng/mL Total Protein (6.3-8.2) g/dL Albumin (3.5-5.0) g/dL Amylase (30-110) U/L Lipase (23-300) U/L Urine Color Urine Appearance (Clear) Urine pH (5.0-8.0) Ur Specific [place] (1.001-1.035) Urine Protein (Negative) Urine Glucose (UA) (Negative) Urine Ketones (Negative) Urine Blood (Negative) Urine Nitrite (Negative) Urine Bilirubin (Negative) Urine Urobilinogen (<2.0) mg/dL Ur Leukocyte Esterase (Negative) Urine RBC (0-5) /hpf Urine WBC (0-5) /hpf Coronavirus (PCR) Not Detected (Not Detectd) - EKG Data EKG Comments: EKG done at 1:53 AM and reviewed by the ED attending physician reveals atrial fibrillation with a rate of 95. No evidence of acute ST or T-wave changes. Patient does have a hint of T-wave flattening in lead V6. Normal axis. Poor R wave progression. When compared to the previous study there is no significant change. (Dhiraj Padilla) Disposition Is patient prescribed a controlled substance at d/c from ED?: No <Juan Dudley - Last Filed: 05/11/21 06:09> <Dhiraj Padilla - Last Filed: 05/12/21 02:26> Clinical Impression: Myalgia, Hematuria Disposition: Left Against Medical Advice Condition: Fair Instructions (If sedation given, give patient instructions): Hematuria (ED) Additional Instructions: As we discussed, follow-up with the specialists. Follow with the urologist for the concern about possibility of bladder/prostate mass. Follow with the general surgeon regarding her gallbladder, as we discussed. Also discussed, follow up to have repeat imaging of the lung in 3 months to ensure that the nodule there is not changing. Return to the emergency department if your symptoms recur or if there is any worsening. Referrals: Gabriel Boyle DO [Primary Care Provider] - 1-2 days
[2021-05-11 01:16] VITALS: RESP 16; TEMP 96.8
[2021-05-11 03:17] LABS: INR 1.1 (<1.2); Partial Thromboplastin Time 32.7 sec (22.0-30.0); Prothrombin Time 11.6 sec (9.0-12.0)
[2021-05-11 03:24] LABS: Albumin 3.7 g/dL (3.5-5.0); Calcium 9.4 mg/dL (8.4-10.2); Potassium 4.2 mmol/L (3.5-5.1); Total Bilirubin 0.9 mg/dL (0.2-1.3); Total Protein 7.1 g/dL (6.3-8.2)
[2021-05-11 03:27] LABS: Appearance,Urine Turbid (Clear); Bilirubin,Urine Negative (Negative); Blood,Urine Large (Negative); Color,Urine Light Red; Glucose,Urine (UA) Trace (Negative); Ketones,Urine Negative (Negative); Leukocyte Esterase,Urine Large (Negative); Nitrite,Urine Negative (Negative); Protein,Urine 2+ (Negative); RBC,Urine >182 /hpf (0-5); Specific Gravity,Urine 1.018 (1.001-1.035); Urobilinogen,Urine <2.0 mg/dL (<2.0); WBC,Urine >182 /hpf (0-5)
[2021-05-11 03:28] LABS: Basophils % (A) 0 %; Eosinophils # (A) 0.1 k/uL (0-0.7); Eosinophils % (A) 2 %; HCT 42.4 % (39.0-53.0); Lymphocytes # (A) 1.9 k/uL (1.0-4.8); Lymphocytes % (A) 25 %; MCH 31.6 pg (25.0-35.0); MCV 95.7 fL (80.0-100.0); Mean Platelet Volume 9.7; Monocytes # (A) 0.6 k/uL (0-1.0); Monocytes % (A) 8 %; Neutrophils # (A) 4.7 k/uL (1.3-7.7); Neutrophils % (A) 63 %; Platelet Count 306 k/uL (150-450); RBC 4.43 m/uL (4.30-5.90); RDW 13.4 % (11.5-15.5); WBC 7.6 k/uL (3.8-10.6)
--- NOTE | 2021-05-11 03:40 | XR ---
EXAMINATION TYPE: XR chest 1V portable DATE OF EXAM: 05/11/2021 COMPARISON: 07/19/2015 HISTORY: Short of breath TECHNIQUE: Single view FINDINGS: There is no heart failure nor confluent pneumonic infiltrate. Costophrenic angles are clear . Bony thorax appears intact. IMPRESSION: No active cardiopulmonary disease. No change.
--- NOTE | 2021-05-11 04:10 | CT ---
EXAMINATION TYPE: CT abdomen pelvis w con DATE OF EXAM: 05/11/2021 COMPARISON: 02/26/2021 HISTORY: Abd Pain, Blood in Urine CT DLP: 1586.90 mGycm Automated exposure control for dose reduction was used. CONTRAST: Performed with IV Contrast, patient injected with 80 mL of Isovue 300. Images obtained from the diaphragm to the floor the pelvis with IV contrast. There is 12 mm noncalcified stellate density subpleural lateral right lower lobe. There is mild subs egmental atelectasis at the lung bases. Heart is enlarged. There is no pericardial effusion. There is no pleural effusion. Liver is intact. The bile ducts are nondilated. There is small calcified gallstones. Gallbladder is d ilated and measures 6 cm. Spleen is intact. The stomach is intact. There are multiple small pancreati c calcifications. There is no adrenal mass. There is bilateral hydronephrosis and hydroureter. No obstructing calculus seen. There is 2 cm somewhat rounded density at the base of the urinary bladder in the midline. It is not clear if this bladder mass or related to nodular enlarged prostate. There is mild wall thickenin g of the bladder. Prostate is enlarged and measures 6.7 cm. There is no inguinal hernia. There is no free fluid in the pelvis. There are multiple fluid-filled small bowel loops in the abdomen without disproportionate enlargement of any one loop. Small bowel measures up to 2.5 cm. There are multiple sigmoid diverticula. There is no diverticulitis. Appendix not seen. No sign of thi ckened appendix. The lumbar vertebrae have normal alignment. There is some degenerative disc space narrowing at L3-4 L 4-5 and L5-S1 with spurring and mild vacuum disc. There is no lumbar compression fracture. Bony pelvi s appears intact. IMPRESSION: Moderate bilateral hydronephrosis and hydroureter. This could relate to reflux. Appearance not change d compared to old exam. Dilated gallbladder increased compared to old exams suggestive of cholecystitis. There are a few calc ified gallstones. Pancreatic calcifications appear unchanged and consistent with chronic pancreatitis. Sigmoid diverticulosis. Hypertrophic changes in the urinary bladder similar to old exam. Nodular dens ity at the base of the bladder could be enlarged prostate or bladder mass. Unchanged. Enlarged prosta te. Cardiomegaly. There is a 12 mm stellate nodule in the subpleural lateral right lower lobe that appears new compared to old exam. Follow-up recommended.
[2021-05-11 05:01] VITALS: BP 141/89; PULSE 90
[2021-05-11] MEDS ORDERED: HYDROmorphone 0.5 MG/0.5 ML SYRINGE IVP STA (06:07)
== END 2021-05-11 06:24 | disposition left against medical advice (07) ==
LOC: EC 00:51
DX: M25.511 Pain in right shoulder (principal); M25.512 Pain in left shoulder; M79.604 Pain in right leg; M79.605 Pain in left leg; R31.9 Hematuria, unspecified; I25.10 Atherosclerotic heart disease of native coronary artery without angina pectoris; E11.9 Type 2 diabetes mellitus without complications; E78.5 Hyperlipidemia, unspecified; I10 Essential (primary) hypertension; I25.2 Old myocardial infarction; F17.200 Nicotine dependence, unspecified, uncomplicated; Z79.01 Long term (current) use of anticoagulants; Z79.4 Long term (current) use of insulin; Z88.2 Allergy status to sulfonamides; Z20.822 Contact with and (suspected) exposure to COVID-19
CPT/HCPCS: 36415; 71045; 74177; 80053; 81001; 82150; 82550; 83605; 83690; 84484; 85025; 85610; 85730; 87086; 87635; 93005; 96361; 96374; 96375; 96376; 99284

== ENCOUNTER 2021-05-12 10:18 | Inpatient (IN) | payer MEDICARE, OTHER ==
[2021-05-12 11:24] LABS: Basophils % (A) 0 %; Eosinophils # (A) 0.1 k/uL (0-0.7); Eosinophils % (A) 1 %; HGB 14.3 gm/dL (13.0-17.5); Lymphocytes # (A) 1.2 k/uL (1.0-4.8); Lymphocytes % (A) 11 %; MCH 32.1 pg (25.0-35.0); MCHC 33.3 g/dL (31.0-37.0); MCV 96.5 fL (80.0-100.0); Mean Platelet Volume 7.6; Monocytes # (A) 0.6 k/uL (0-1.0); Monocytes % (A) 5 %; Neutrophils # (A) 9.4 k/uL (1.3-7.7); Neutrophils % (A) 82 %; Platelet Count 277 k/uL (150-450); RBC 4.46 m/uL (4.30-5.90); RDW 13.4 % (11.5-15.5); WBC 11.5 k/uL (3.8-10.6)
--- NOTE | 2021-05-12 11:34 | XR ---
EXAMINATION TYPE: XR shoulder complete LT DATE OF EXAM: 05/12/2021 CLINICAL HISTORY: Pain. TECHNIQUE: Three views of the left shoulder are obtained. COMPARISON: Left shoulder x-ray April 23, 2017 FINDINGS: There is no acute fracture/dislocation evident in the left shoulder. Moderate narrowing an d mild to moderate spurring at acromioclavicular joint is more prominent from prior. Mild to moderate narrowing glenohumeral joint. Osseous structures are somewhat demineralized. The visualized ribs are intact. Overlying soft tissues unremarkable. IMPRESSION: As above. Some interval degenerative progression from 2018 study noted.
--- NOTE | 2021-05-12 11:36 | ED ---
Back Pain HPI - General Chief Complaint: Back Pain/Injury Stated Complaint: leg numbness Time Seen by Provider: 05/12/21 10:32 Source: patient, family, RN notes reviewed Limitations: physical limitation - History of Present Illness Initial Comments: 62-year-old male with a history of heart disease diabetes and other problems who was seen here yesterday but is back today with complaints of increased pain to the left lower extremity when he tries ambulate he states his leg umang when he tries to walk he also complains of increased pain to his left shoulder with gets worse with movement he has no recent falls or he does have a remote 1. No urinary or fecal incontinence no fevers chills sweats other symptoms. MD Complaint: back pain - Related Data Home Medications Medication Instructions Recorded Confirmed Apixaban [Eliquis] 5 mg PO BID 05/26/20 05/12/21 Atorvastatin Calcium [Lipitor] 80 mg PO HS 05/26/20 05/12/21 Metoprolol Tartrate [Lopressor] 50 mg PO BID 05/26/20 05/12/21 INSULIN ASPART (NovoLOG) [NovoLOG 5 unit SQ AC-BID 05/12/21 05/12/21 (formulary)] Insulin Detemir (Levemir) [Levemir] 15 unit SQ BID 05/12/21 05/12/21 Sertraline [Zoloft] 50 mg PO DAILY 05/12/21 05/12/21 Sulfamethox-Tmp 800-160Mg [Bactrim 1 tab PO BID 05/12/21 05/12/21 DS 800-160 mg] Tamsulosin [Flomax] 0.4 mg PO BID 05/12/21 05/12/21 traMADol HCl [Ultram] 50 mg PO TID PRN 05/12/21 05/12/21 Allergies Allergy/AdvReac Type Severity Reaction Status Date / Time cephalexin [From Keflex] Allergy Nausea & Verified 05/12/21 11:20 Vomiting & Diarrhea Review of Systems ROS Statement: Those systems with pertinent positive or pertinent negative responses have been documented in the HPI. ROS Other: All systems not noted in ROS Statement are negative. Past Medical History Past Medical History: Coronary Artery Disease (CAD), Diabetes Mellitus, Hyperli pidemia, Hypertension, Myocardial Infarction ([place]) Last Myocardial Infarction Date:: 1972 History of Any Multi-Drug Resistant Organisms: None Reported Past Surgical History: Heart Catheterization Additional Past Surgical History / Comment(s): stomach surgery Additional Past Anesthesia/Blood Transfusion Reaction / Comment(s): No previous transfusion Past Psychological History: No Psychological Hx Reported Smoking Status: Current every day smoker Past Alcohol Use History: None Reported Past Drug Use History: None Reported General Exam - General Exam Comments Initial Comments: This is a well-developed well-nourished awake alert oriented 3 male Limitations: physical limitation General appearance: alert, in no apparent distress Head exam: Present: atraumatic, normocephalic, normal inspection Eye exam: Present: normal appearance, PERRL, EOMI. Absent: scleral icterus, conjunctival injection, periorbital swelling ENT exam: Present: normal exam, mucous membranes moist Neck exam: Present: normal inspection, full ROM, other (Stridor JVD or bruits). Absent: tenderness, meningismus, lymphadenopathy Respiratory exam: Present: normal lung sounds bilaterally. Absent: respiratory distress, wheezes, rales, rhonchi, stridor Cardiovascular Exam: Present: irregular rhythm, normal heart sounds. Absent: s ystolic murmur, diastolic murmur, rubs, gallop, clicks GI/Abdominal exam: Present: soft, normal bowel sounds. Absent: distended, tenderness, guarding, rebound, rigid Rectal exam: Present: deferred Extremities exam: Present: normal inspection, normal capillary refill. Absent: full ROM (Decreased range of motion the left lower 70 secondary to pain also the left upper extremity), tenderness, pedal edema, joint swelling, calf tenderness Back exam: Present: normal inspection, tenderness (Palpation of the lower lumbar paraspinous musculature in the left no step-off or crepitation) Neurological exam: Present: alert, oriented X3, CN II-XII intact Psychiatric exam: Present: normal affect, normal mood Skin exam: Present: warm, dry, intact, normal color. Absent: rash Course Vital Signs 05/12/21 05/12/21 05/12/21 10:22 11:27 13:00 Temperature 97.6 F Pulse Rate 96 96 Respiratory 18 18 Rate Blood Pressure 140/96 159/96 144/111 O2 Sat by Pulse 98 95 Oximetry Medical Decision Making - Medical Decision Making I did discuss findings with the patient and family patient does have evidence of cystitis possible bladder mass. Additionally he was hypomagnesemic evidence of dehydration. He does have chronic atrial fibrillation. Case discussed with Dr. Archibald the patient will be admitted with neurology consultation. - Lab Data Result diagrams: 05/12/21 11:11 05/12/21 11:11 Lab Results 05/12/21 05/12/21 05/12/21 Range/Units 11:11 11:11 11:11 WBC 11.5 H (3.8-10.6) k/uL RBC 4.46 (4.30-5.90) m/uL Hgb 14.3 (13.0-17.5) gm/dL Hct 43.0 (39.0-53.0) % MCV 96.5 (80.0-100.0) fL MCH 32.1 (25.0-35.0) pg MCHC 33.3 (31.0-37.0) g/dL RDW 13.4 (11.5-15.5) % Plt Count 277 (150-450) k/uL MPV 7.6 Neutrophils % 82 % Lymphocytes % 11 % Monocytes % 5 % Eosinophils % 1 % Basophils % 0 % Neutrophils # 9.4 H (1.3-7.7) k/uL Lymphocytes # 1.2 (1.0-4.8) k/uL Monocytes # 0.6 (0-1.0) k/uL Eosinophils # 0.1 (0-0.7) k/uL Basophils # 0.0 (0-0.2) k/uL Sodium 135 L (137-145) mmol/L Potassium 4.3 (3.5-5.1) mmol/L Chloride 102 (98-107) mmol/L Carbon Dioxide 21 L (22-30) mmol/L Anion Gap 12 mmol/L BUN 20 (9-20) mg/dL Creatinine 1.47 H (0.66-1.25) mg/dL Est GFR (CKD-EPI)AfAm 56 (>60 ml/min/1.73 sqM) Est GFR (CKD-EPI)NonAf 48 (>60 ml/min/1.73 sqM) Glucose 267 H (74-99) mg/dL Calcium 9.5 (8.4-10.2) mg/dL Magnesium 1.0 L (1.6-2.3) mg/dL Total Bilirubin 1.2 (0.2-1.3) mg/dL AST 22 (17-59) U/L ALT 26 (4-49) U/L Alkaline Phosphatase 100 (38-126) U/L Creatine Kinase 77 (55-170) U/L Troponin I <0.012 (0.000-0.034) ng/mL Total Protein 7.4 (6.3-8.2) g/dL Albumin 3.9 (3.5-5.0) g/dL Urine Color Urine Appearance (Clear) Urine pH (5.0-8.0) Ur Specific Benjamin (1.001-1.035) Urine Protein (Negative) Urine Glucose (UA) (Negative) Urine Ketones (Negative) Urine Blood (Negative) Urine Nitrite (Negative) Urine Bilirubin (Negative) Urine Urobilinogen (<2.0) mg/dL Ur Leukocyte Esterase (Negative) Urine RBC (0-5) /hpf Urine WBC (0-5) /hpf Coronavirus (PCR) (Not Detectd) 05/12/21 05/12/21 Range/Units 11:25 14:14 WBC (3.8-10.6) k/uL RBC (4.30-5.90) m/uL Hgb (13.0-17.5) gm/dL Hct (39.0-53.0) % MCV (80.0-100.0) fL MCH (25.0-35.0) pg MCHC (31.0-37.0) g/dL RDW (11.5-15.5) % Plt Count (150-450) k/uL MPV Neutrophils % % Lymphocytes % % Monocytes % % Eosinophils % % Basophils % % Neutrophils # (1.3-7.7) k/uL Lymphocytes # (1.0-4.8) k/uL Monocytes # (0-1.0) k/uL Eosinophils # (0-0.7) k/uL Basophils # (0-0.2) k/uL Sodium (137-145) mmol/L Potassium (3.5-5.1) mmol/L Chloride (98-107) mmol/L Carbon Dioxide (22-30) mmol/L Anion Gap mmol/L BUN (9-20) mg/dL Creatinine (0.66-1.25) mg/dL Est GFR (CKD-EPI)AfAm (>60 ml/min/1.73 sqM) Est GFR (CKD-EPI)NonAf (>60 ml/min/1.73 sqM) Glucose (74-99) mg/dL Calcium (8.4-10.2) mg/dL Magnesium (1.6-2.3) mg/dL Total Bilirubin (0.2-1.3) mg/dL AST (17-59) U/L ALT (4-49) U/L Alkaline Phosphatase (38-126) U/L Creatine Kinase (55-170) U/L Troponin I (0.000-0.034) ng/mL Total Protein (6.3-8.2) g/dL Albumin (3.5-5.0) g/dL Urine Color Light Red Urine Appearance Turbid (Clear) Urine pH 6.5 (5.0-8.0) Ur Specific Benjamin 1.018 (1.001-1.035) Urine Protein 1+ H (Negative) Urine Glucose (UA) 2+ H (Negative) Urine Ketones Negative (Negative) Urine Blood Large H (Negative) Urine Nitrite Negative (Negative) Urine Bilirubin Negative (Negative) Urine Urobilinogen <2.0 (<2.0) mg/dL Ur Leukocyte Esterase Large H (Negative) Urine RBC >182 H (0-5) /hpf Urine WBC >182 H (0-5) /hpf Coronavirus (PCR) Not Detected (Not Detectd) - EKG Data -: EKG Interpreted by Me EKG shows normal: sinus rhythm EKG Comments: Atrial fibrillation rate 108 QRS 90 QT since QTC 302/404 nonspecific T-wave configuration - Radiology Data Radiology results: report reviewed (Imaging reviewed from yesterday as well as today evidence of degenerative changes at L3 through S1 no evidence of acute fractures or dislocations. CAT scan did show evidence of a 2 cm mass possibly bladder versus prostate. Evidence of thickening of the bladder.), image reviewed Disposition Clinical Impression: Hematuria, Bladder mass, Hypomagnesemia syndrome, Dehydration, Sciatica of left side, Chronic atrial fibrillation Disposition: ADMITTED IP TO THIS [facility] Condition: Fair Referrals: Gabriel Boyle DO [Primary Care Provider] - 1-2 days
[2021-05-12 11:43] LABS: Albumin 3.9 g/dL (3.5-5.0); Calcium 9.5 mg/dL (8.4-10.2); Potassium 4.3 mmol/L (3.5-5.1); Total Bilirubin 1.2 mg/dL (0.2-1.3); Total Protein 7.4 g/dL (6.3-8.2)
[2021-05-12] MEDS ORDERED: HYDROmorphone 1 MG/ML 1 ML SYRINGE IVP STA (11:52)
[2021-05-12 11:55] LABS: Appearance,Urine Turbid (Clear); Bilirubin,Urine Negative (Negative); Blood,Urine Large (Negative); Color,Urine Light Red; Glucose,Urine (UA) 2+ (Negative); Ketones,Urine Negative (Negative); Leukocyte Esterase,Urine Large (Negative); Nitrite,Urine Negative (Negative); PH, Urine 6.5 (5.0-8.0); Protein,Urine 1+ (Negative); RBC,Urine >182 /hpf (0-5); Specific Gravity,Urine 1.018 (1.001-1.035); Urobilinogen,Urine <2.0 mg/dL (<2.0); WBC,Urine >182 /hpf (0-5)
[2021-05-12] MEDS: MAGNESIUM SULFATE-D5W PMX 1 GM in DEXTROSE/WATER 1 100ML.BAG IVPB SCH ×2 (13:30→14:34)
[2021-05-12] MEDS ORDERED: PIPERACILLIN-TAZOBACTAM 3.375 GM in SODIUM CHLORIDE 0.9% 100 ML IVPB STA (14:17)
[2021-05-12] MEDS ORDERED: NALOXONE 0.4 MG/ML 1 ML VIAL IV PRN (14:56)
[2021-05-12] MEDS: SODIUM CHLORIDE 0.9% 1,000 ML IV SCH (15:53)
[2021-05-12 16:31] LABS: Glucose,Whole Blood 313 mg/dL (75-99)
[2021-05-12] MEDS: INSULIN ASPART (NovoLOG) 100 UNIT/ML VIAL SQ SCH ×3 (16:58→22:36)
--- NOTE | 2021-05-12 17:32 | XR ---
EXAMINATION TYPE: XR Hip Complete LT DATE OF EXAM: 05/12/2021 CLINICAL HISTORY: Pain TECHNIQUE: AP and frogleg views of the left hip are obtained. COMPARISON: None. FINDINGS: There is no acute fracture/dislocation evident in the left hip. The joint space in the le ft hip appears narrowed. Vascular calcifications. The overlying soft tissue appears unremarkable. IMPRESSION: Mild degenerative changes without an acute fracture or dislocation in the left hip.
[2021-05-12 21:25] LABS: Glucose,Whole Blood 212 mg/dL (75-99)
[2021-05-12] MEDS: METOPROLOL TARTRATE 50 MG TAB PO SCH (22:36)
[2021-05-12] MEDS: ATORVASTATIN 80 MG TAB PO SCH (22:36)
[2021-05-12] MEDS: TAMSULOSIN 0.4 MG CAP.ER.24H PO SCH (22:36)
[2021-05-12] MEDS: PIPERACILLIN-TAZOBACTAM 3.375 GM in SODIUM CHLORIDE 0.9% 100 ML IVPB SCH (22:52)
[2021-05-12] MEDS: INSULIN DETEMIR (LEVEMIR) 100 UNIT/ML SYR SQ SCH (22:52)
--- NOTE | 2021-05-12 23:23 | P.HPIM ---
History of Present Illness H&P Date: 05/12/21 Chief Complaint: left hip pain Patient is a 70-year-old male with a known history of hypertension, hyperlipidemia, diabetes type 2 insulin-dependent, history of OR status post cardiac catheterization, currently everyday smoker and BPH presented to ER with complaints of left hip pain and also left shoulder pain. Pain gets worse with movement. Patient denies any recent falls. Patient initially presented to ER and had CT abdominal pelvis which showed moderate bilateral hydronephrosis and hydroureter. This could relate to reflux. Appearance not changed compared with exam. Dilated gallbladder increased compared to holograms history of cholecystitis. There are few calcified gallstones. Pancreatic calcifications appear unchanged and consistent with chronic pancreatitis. Sigmoid diverticulosis hypertrophic changes in the urinary bladder similar to old exam. Nodular density at the base of the bladder could be enlarged prostate or bladder mass. Unchanged. Enlarged prostate. There is a 12 mm stellate nodule in the subpleural lateral right lower lobe that appears to be new compared to old exam. Follow-up recommended. X-ray of the shoulder no acute fracture or dislocation. Moderate narrowing and mild to moderate spurring at the acromioclavicular joint is more prominent from prior. Hip x-ray showed mild to moderate degenerative joint disease. Laboratory data showed sodium 135 potassium 4.3 chloride 102 bicarb is 21 BUN 20 and creatinine 1.47 blood sugar is 267 Urinalysis showed large blood nitrate negative and large leukocyte esterase with elevated RBCs and WBCs. WBC 11.5 hemoglobin 14.3 and platelets 277. Coronavirus PCR not detected. Review of Systems Constitutional: Patient denies any fever or chills . No generalized weakness or weight loss. Abdomen: Patient denied nausea vomiting and diarrhea and abdominal pain. Cardiovascular: Patient denies any chest pain or short of breath no palpitations. Respiratory: patient denied any cough or sputum production. No shortness of breath Neurologic: Patient denied any numbness or tingling headache. Musculoskeletal: Patient denies any complaints of joint swelling or deformity. He does complain of left hip pain and left shoulder pain. Skin: Negative Psychiatric: Negative Endocrine: No heat or cold intolerance. No recent weight gain. Genitourinary: No dysuria or hematuria. All other 14 point ROS negative except the above Past Medical History Past Medical History: Coronary Artery Disease (CAD), Diabetes Mellitus, Hyperl ipidemia, Hypertension, Myocardial Infarction ([place]) Additional Past Medical History / Comment(s): abdominal hernia Last Myocardial Infarction Date:: 1972 History of Any Multi-Drug Resistant Organisms: None Reported Past Surgical History: Heart Catheterization Additional Past Surgical History / Comment(s): stomach surgery, was born with an upside down stomach Additional Past Anesthesia/Blood Transfusion Reaction / Comment(s): No previous transfusion Past Psychological History: No Psychological Hx Reported Smoking Status: Current every day smoker Past Alcohol Use History: None Reported Past Drug Use History: None Reported - Past Family History Mother Family Medical History: Diabetes Mellitus Medications and Allergies Home Medications Medication Instructions Recorded Confirmed Type Apixaban [Eliquis] 5 mg PO BID 05/26/20 05/12/21 History Atorvastatin Calcium [Lipitor] 80 mg PO HS 05/26/20 05/12/21 History Metoprolol Tartrate [Lopressor] 50 mg PO BID 05/26/20 05/12/21 History INSULIN ASPART (NovoLOG) [NovoLOG 5 unit SQ AC-BID 05/12/21 05/12/21 History (formulary)] Insulin Detemir (Levemir) [Levemir] 15 unit SQ BID 05/12/21 05/12/21 History Sertraline [Zoloft] 50 mg PO DAILY 05/12/21 05/12/21 History Sulfamethox-Tmp 800-160Mg [Bactrim 1 tab PO BID 05/12/21 05/12/21 History DS 800-160 mg] Tamsulosin [Flomax] 0.4 mg PO BID 05/12/21 05/12/21 History traMADol HCl [Ultram] 50 mg PO TID PRN 05/12/21 05/12/21 History Allergies Allergy/AdvReac Type Severity Reaction Status Date / Time cephalexin [From Keflex] Allergy Nausea & Verified 05/12/21 11:20 Vomiting & Diarrhea Physical Exam Vitals: Vital Signs Temp Pulse Pulse Resp BP BP Pulse Ox 05/12/21 20:04 97.8 F 121 H 18 134/85 94 L 05/12/21 17:15 97.9 F 112 H 18 159/82 93 L 05/12/21 15:33 111 H 18 164/99 94 L 05/12/21 15:00 110 H 20 148/102 94 L 05/12/21 13:00 96 18 144/111 95 05/12/21 11:27 159/96 05/12/21 10:22 97.6 F 96 18 140/96 98 Intake and Output 05/12/21 05/12/21 05/13/21 14:59 22:59 06:59 Intake Total 600 Balance 600 Intake: Intake, IV Titration 600 Amount Sodium Chloride 0.9% 1, 600 000 ml @ 75 mls/hr IV . [id number] [facility] Rx#:[id number] Other: Voiding Method External Catheter Weight 111.13 kg 111.13 kg PHYSICAL EXAMINATION: Patient is lying in the bed comfortably, mild acute distress, awake alert and oriented.. HEENT: Normocephalic. Neck is supple. Pupils reactive. Nostrils clear. Oral cavity is moist. Neck reveals no JVD, carotid bruits, or thyromegaly. CHEST EXAMINATION: Trachea is central. Symmetrical expansion.Bibasilar diminished sounds. Lung seo clear to auscultation and percussion. CARDIAC: Normal S1, S2 with no gallops. No murmurs ABDOMEN: Soft. Bowel sounds normal. No organomegaly. No abdominal bruits. Extremities: reveal no edema. No clubbing or cyanosis Neurologically awake, alert, oriented x3 with well-coordinated movements. No focal deficits noted Skin: No rash or skin lesions. Psychiatric: Cooperative. Nonsuicidal Musculoskeletal: No joint swelling or deformity. Normal range of motion. Results CBC & Chem 7: 05/13/21 03:09 05/13/21 03:09 Labs: Abnormal Lab Results - Last 24 Hours (Table) 05/12/21 05/12/21 05/12/21 Range/Units 11:11 11:11 11:25 WBC 11.5 H (3.8-10.6) k/uL Neutrophils # 9.4 H (1.3-7.7) k/uL Sodium 135 L (137-145) mmol/L Carbon Dioxide 21 L (22-30) mmol/L Creatinine 1.47 H (0.66-1.25) mg/dL Glucose 267 H (74-99) mg/dL POC Glucose (mg/dL) (75-99) mg/dL Magnesium 1.0 L (1.6-2.3) mg/dL Urine Protein 1+ H (Negative) Urine Glucose (UA) 2+ H (Negative) Urine Blood Large H (Negative) Ur Leukocyte Esterase Large H (Negative) Urine RBC >182 H (0-5) /hpf Urine WBC >182 H (0-5) /hpf 05/12/21 05/12/21 Range/Units 16:26 21:23 WBC (3.8-10.6) k/uL Neutrophils # (1.3-7.7) k/uL Sodium (137-145) mmol/L Carbon Dioxide (22-30) mmol/L Creatinine (0.66-1.25) mg/dL Glucose (74-99) mg/dL POC Glucose (mg/dL) 313 H 212 H (75-99) mg/dL Magnesium (1.6-2.3) mg/dL Urine Protein (Negative) Urine Glucose (UA) (Negative) Urine Blood (Negative) Ur Leukocyte Esterase (Negative) Urine RBC (0-5) /hpf Urine WBC (0-5) /hpf Thrombosis Risk Factor Assmnt - DVT/VTE Prophylaxis DVT/VTE Prophylaxis: Pharmacologic Prophylaxis ordered - Choose All That Apply Each Factor Represents 1 point: Obesity (BMI >25) Each Risk Factor Represents 2 Points: Age 61-74 years Each Risk Factor Represents 3 Points: Family history of DVT/PE Thrombosis Risk Factor Assessment Total Risk Factor Score: 6 Thrombosis Risk Factor Assessment Level: High Risk Assessment and Plan Assessment: Left hip pain and left shoulder pain likely musculoskeletal. X-ray showed no evidence of acute fracture or dislocation. No lytic lesions. Bladder mass versus enlarged prostate. Bilateral moderate hydronephrosis Hematuria resolved now. Acute urinary tract infection Hyperglycemia with uncontrolled diabetes type 2 insulin-dependent Hypomagnesemia Hypovolemic hyponatremia Acute kidney injury likely prerenal Chronic kidney disease stage III Paroxysmal atrial fibrillation on anticoagulation with Eliquis Hypertension Hyperlipidemia History of OR status post cardiac catheterization. Plan: Patient will continue on IV hydration and antibiotics upon ceftriaxone. Follow- up urine culture report. Neurology was consulted due to hematuria and also bladder mass. Hematuria has resolved now. Patient is left hip pain and left lower abdominal pain. CT of abdomen pelvis showed bilateral hydronephrosis and hydroureter. Eliquis is on hold for possible procedure. Continue with home medications and pain management with tramadol. Left hip x- ray will be done. Continue to follow closely. Time with Patient: Greater than 30
[2021-05-13] MEDS: traMADol 50 MG TAB PO PRN ×3 (01:14→20:54)
[2021-05-13] MEDS: SODIUM CHLORIDE 0.9% 1,000 ML IV SCH ×2 (05:32→13:29)
[2021-05-13] MEDS ORDERED: ONDANSETRON 4 MG/2 ML VIAL IVP PRN (05:34)
[2021-05-13 06:52] LABS: Glucose,Whole Blood 143 mg/dL (75-99)
[2021-05-13] MEDS: PIPERACILLIN-TAZOBACTAM 3.375 GM in SODIUM CHLORIDE 0.9% 100 ML IVPB SCH (07:05)
[2021-05-13] MEDS: SERTRALINE 50 MG TAB PO SCH (07:05)
[2021-05-13] MEDS: INSULIN ASPART (NovoLOG) 100 UNIT/ML VIAL SQ SCH ×6 (07:06→20:54)
[2021-05-13] MEDS: METOPROLOL TARTRATE 50 MG TAB PO SCH ×2 (07:06→20:54)
[2021-05-13] MEDS: TAMSULOSIN 0.4 MG CAP.ER.24H PO SCH ×2 (07:06→20:54)
[2021-05-13] MEDS: INSULIN DETEMIR (LEVEMIR) 100 UNIT/ML SYR SQ SCH ×2 (07:07→20:54)
[2021-05-13 09:05] LABS: Basophils # (A) 0.03 X 10*3/uL (0.00-0.10); Basophils % (A) 0.3 %; Eosinophils # (A) 0.03 X 10*3/uL (0.04-0.35); Eosinophils % (A) 0.3 %; HGB 13.8 g/dL (13.0-17.0); Immature Grans, Automated 0.4 %; Lymphocytes # (A) 1.14 X 10*3/uL (0.90-5.00); Lymphocytes % (A) 10.7 %; MCH 30.7 pg (27.0-32.0); MCHC 32.9 g/dL (32.0-37.0); MCV 93.5 fL (80.0-97.0); Mean Platelet Volume 11.1 fL (9.5-12.2); Monocytes # (A) 1.16 X 10*3/uL (0.20-1.00); Monocytes % (A) 10.9 %; NRBC Per 100 WBC 0 /100 WBCS (0.0-0.0); Neutrophils # (A) 8.27 X 10*3/uL (1.80-7.70); Neutrophils % (A) 77.4 %; Platelet Count 294 X 10*3/uL (140-440); RBC 4.49 X 10*6/uL (4.40-5.60); RDW 12.8 % (11.5-14.5); WBC 10.67 X 10*3/uL (4.50-10.00)
[2021-05-13 09:21] LABS: African American GFR (CKD) 50.6 (60.0-200.0); Anion Gap 13.8 mmol/L (10.00-18.00); BUN/Creat Ratio 11.75 Ratio (12.00-20.00); Blood Urea Nitrogen 18.8 mg/dL (9.0-27.0); Calcium 9.8 mg/dL (8.7-10.3); Carbon Dioxide 21.2 mmol/L (20.0-27.5); Non-African American GFR(CKD) 43.6 (60.0-200.0); Potassium 4.4 mmol/L (3.5-5.5)
[2021-05-13] MEDS: NICOTINE 14MG/24HR PATCH TRANSDERM SCH (10:14)
[2021-05-13 11:20] LABS: Glucose,Whole Blood 119 mg/dL (75-99)
[2021-05-13] MEDS ORDERED: HYDROmorphone 1 MG/ML 1 ML SYRINGE IVP STA (13:09)
[2021-05-13] MEDS: MAGNESIUM SULFATE-D5W PMX 1 GM in DEXTROSE/WATER 1 100ML.BAG IVPB SCH ×4 (14:11→17:59)
--- NOTE | 2021-05-13 15:42 | P.GSCN ---
History of Present Illness Reason for Consult: gross hematuria History of present illness: This is a 70 year-old male admitted to the hospital with increased pain in the left lower extremity and left shoulder. he's also been having new onset urinary incontinence. He underwent a CT abdomen and pelvis that showed evidence of chronic bilateral hydronephrosis, with thickened bladder. Additionally there was a 2 cm nodular density at the bladder base, could be extension from the prostate versus a bladder mass. He recently underwent an office cystoscopy which showed no abnormality within the bladder but study was limited secondary to debris. he has been having persistent dysuria, despite negative urine cultures. Discussed with him the option of performing a formal cystoscopy in the OR, and considering bladder biopsies given the degree of bladder thickness. The case was canceled due to the need for cardiac clearance. 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 His gross hematuria has resolved now, urine on evaluation is clear. Denies any flank pain, UA on presentation showed greater than 182 RBCs and white blood cells, urine cultures pending Review of Systems - Constitutional Reports weakness - EENT Ears, nose, mouth and throat: Denies dysphagia - Cardiovascular Denies chest pain, Denies shortness of breath - Respiratory Denies cough, Denies 7 - Gastrointestinal Reports abdominal pain, Denies nausea, Denies vomiting - Genitourinary Reports dysuria, Reports hematuria, Reports incontinence - Neurological Reports weakness, Denies headaches, Denies syncope Past Medical History Past Medical History: Coronary Artery Disease (CAD), Diabetes Mellitus, Hyperlipidemia, Hypertension, Myocardial Infarction ([place]) Additional Past Medical History / Comment(s): abdominal hernia Last Myocardial Infarction Date:: 1972 History of Any Multi-Drug Resistant Organisms: None Reported Past Surgical History: Heart Catheterization Additional Past Surgical History / Comment(s): stomach surgery, was born with an upside down stomach Additional Past Anesthesia/Blood Transfusion Reaction / Comm: No previous transfusion Past Psychological History: No Psychological Hx Reported Smoking Status: Current every day smoker Past Alcohol Use History: None Reported Past Drug Use History: None Reported - Past Family History Mother Family Medical History: Diabetes Mellitus Medications and Allergies Home Medications Medication Instructions Recorded Confirmed Type Apixaban [Eliquis] 5 mg PO BID 05/26/20 05/12/21 History Atorvastatin Calcium [Lipitor] 80 mg PO HS 05/26/20 05/12/21 History Metoprolol Tartrate [Lopressor] 50 mg PO BID 05/26/20 05/12/21 History INSULIN ASPART (NovoLOG) [NovoLOG 5 unit SQ AC-BID 05/12/21 05/12/21 History (formulary)] Insulin Detemir (Levemir) [Levemir] 15 unit SQ BID 05/12/21 05/12/21 History Sertraline [Zoloft] 50 mg PO DAILY 05/12/21 05/12/21 History Sulfamethox-Tmp 800-160Mg [Bactrim 1 tab PO BID 05/12/21 05/12/21 History DS 800-160 mg] Tamsulosin [Flomax] 0.4 mg PO BID 05/12/21 05/12/21 History traMADol HCl [Ultram] 50 mg PO TID PRN 05/12/21 05/12/21 History Allergies Allergy/AdvReac Type Severity Reaction Status Date / Time cephalexin [From Keflex] Allergy Nausea & Verified 05/12/21 11:20 Vomiting & Diarrhea Surgical - Exam Vital Signs Temp Pulse Resp BP Pulse Ox 97.6 F 96 18 140/96 98 05/12/21 10:22 05/12/21 10:22 05/12/21 10:22 05/12/21 10:22 05/12/21 10:22 - General no distress, moderate pain - Eyes normal ocular movement, no pale - ENT normal nares, normal mucosa - Respiratory normal expansion, normal respiratory effort - Abdomen Abdomen: soft, tender (diffused), distended - Genitourinary urine clear, no CVA tenderness - Psychiatric oriented to time, oriented to person, no oriented to place Results - Labs 05/13/21 03:09 05/13/21 03:09 Abnormal Lab Results - Last 24 Hours (Table) 05/12/21 05/12/21 05/13/21 Range/Units 16:26 21:23 03:09 WBC 10.67 H (4.50-10.00) X 10*3/uL Neutrophils # 8.27 H (1.80-7.70) X 10*3/uL Monocytes # 1.16 H (0.20-1.00) X 10*3/uL Eosinophils # 0.03 L (0.04-0.35) X 10*3/uL Creatinine (0.6-1.5) mg/dL Est GFR (CKD-EPI)AfAm (60.0-200.0) Est GFR (CKD-EPI)NonAf (60.0-200.0) BUN/Creatinine Ratio (12.00-20.00) Ratio Glucose (70-110) mg/dL POC Glucose (mg/dL) 313 H 212 H (75-99) mg/dL 05/13/21 05/13/21 05/13/21 Range/Units 03:09 06:50 11:19 WBC (4.50-10.00) X 10*3/uL Neutrophils # (1.80-7.70) X 10*3/uL Monocytes # (0.20-1.00) X 10*3/uL Eosinophils # (0.04-0.35) X 10*3/uL Creatinine 1.6 H (0.6-1.5) mg/dL Est GFR (CKD-EPI)AfAm 50.6 L (60.0-200.0) Est GFR (CKD-EPI)NonAf 43.6 L (60.0-200.0) BUN/Creatinine Ratio 11.75 L (12.00-20.00) Ratio Glucose 115 H (70-110) mg/dL POC Glucose (mg/dL) 143 H 119 H (75-99) mg/dL Microbiology - Last 24 Hours (Table) 05/12/21 11:25 Urine Culture - Preliminary Urine,Clean Catch Diabetes panel 05/13/21 Range/Units 03:09 Sodium 137 (135-145) mmol/L Potassium 4.4 (3.5-5.5) mmol/L Chloride 102 (96-109) mmol/L Carbon Dioxide 21.2 (20.0-27.5) mmol/L BUN 18.8 (9.0-27.0) mg/dL Creatinine 1.6 H (0.6-1.5) mg/dL Glucose 115 H (70-110) mg/dL Calcium 9.8 (8.7-10.3) mg/dL Calcium panel 05/13/21 Range/Units 03:09 Calcium 9.8 (8.7-10.3) mg/dL Pituitary panel 05/13/21 Range/Units 03:09 Sodium 137 (135-145) mmol/L Potassium 4.4 (3.5-5.5) mmol/L Chloride 102 (96-109) mmol/L Carbon Dioxide 21.2 (20.0-27.5) mmol/L BUN 18.8 (9.0-27.0) mg/dL Creatinine 1.6 H (0.6-1.5) mg/dL Glucose 115 H (70-110) mg/dL Calcium 9.8 (8.7-10.3) mg/dL Adrenal panel 05/13/21 Range/Units 03:09 Sodium 137 (135-145) mmol/L Potassium 4.4 (3.5-5.5) mmol/L Chloride 102 (96-109) mmol/L Carbon Dioxide 21.2 (20.0-27.5) mmol/L BUN 18.8 (9.0-27.0) mg/dL Creatinine 1.6 H (0.6-1.5) mg/dL Glucose 115 H (70-110) mg/dL Calcium 9.8 (8.7-10.3) mg/dL Assessment and Plan Assessment: 70-year-old male admitted to the hospital with weakness involving the left hip and left shoulder, he is also having the onset urinary incontinence. History of a thickened bladder, CT showed a possible bladder mass versus prostate median lobe . I reviewed the images, bladder malignancy cannot be ruled out. Given the small size of the lesion this is not the cause of his neurological symptoms. At this time we'll set him up for a cystoscopy and TURBT as an outpatient after obtaining cardiology clearance.
[2021-05-13 16:09] LABS: Glucose,Whole Blood 254 mg/dL (75-99)
[2021-05-13 20:24] LABS: Glucose,Whole Blood 260 mg/dL (75-99)
[2021-05-13] MEDS: ATORVASTATIN 80 MG TAB PO SCH (20:54)
--- NOTE | 2021-05-13 22:09 | P.PN ---
Subjective Progress Note Date: 05/13/21 Patient is a 70-year-old male with a known history of hypertension, hyperlipidemia, diabetes type 2 insulin-dependent, history of NH status post cardiac catheterization, currently everyday smoker and BPH presented to ER with complaints of left hip pain and also left shoulder pain. Pain gets worse with movement. Patient denies any recent falls. Patient initially presented to ER and had CT abdominal pelvis which showed moderate bilateral hydronephrosis and hydroureter. This could relate to reflux. Appearance not changed compared with exam. Dilated gallbladder increased compared to holograms history of cholecystitis. There are few calcified gallstones. Pancreatic calcifications appear unchanged and consistent with chronic pancreatitis. Sigmoid diverticulosis hypertrophic changes in the urin sumanth bladder similar to old exam. Nodular density at the base of the bladder could be enlarged prostate or bladder mass. Unchanged. Enlarged prostate. There is a 12 mm stellate nodule in the subpleural lateral right lower lobe that appears to be new compared to old exam. Follow-up recommended. X-ray of the shoulder no acute fracture or dislocation. Moderate narrowing and mild to moderate spurring at the acromioclavicular joint is more prominent from prior. Hip x-ray showed mild to moderate degenerative joint disease. Laboratory data showed sodium 135 potassium 4.3 chloride 102 bicarb is 21 BUN 20 and creatinine 1.47 blood sugar is 267 Urinalysis showed large blood nitrate negative and large leukocyte esterase with elevated RBCs and WBCs. WBC 11.5 hemoglobin 14.3 and platelets 277. Coronavirus PCR not detected. 05/13/2021 Patient is currently lying in the bed. Awake alert and still complaining of left lower abdominal pain and hip pain. X-ray of the hip showed mild degenerative changes without acute fracture or dislocation. Overlying soft tissue appears unremarkable. Vascular calcifications noted. Otherwise no acute process identified. Patient admitted on pain management. Urology has seen the patient and recommend outpatient follow-up for cystoscopy. Resume Eliquis at this time. PT OT consult and continue with pain management. Patient has been afebrile. No headache or dizziness or lightheadedness. No dysuria or hematuria. Urine culture is pending. No chest pain or shortness of breath. No cough or sputum production. Current medications reviewed. Objective - Vital Signs Vital signs: Vital Signs Temp 97.8 F 05/13/21 19:49 Pulse 105 H 05/13/21 19:49 Resp 20 05/13/21 19:49 BP 127/81 05/13/21 19:49 Pulse Ox 94 L 05/13/21 19:49 Intake & Output 05/13/21 05/13/21 05/14/21 06:59 18:59 06:59 Intake Total 600 Balance 600 Intake: Intake, IV Titration 600 Amount Sodium Chloride 0.9% 1, 600 000 ml @ 75 mls/hr IV . [id number] [facility] Rx#:[id number] Other: Voiding Method External Catheter External Catheter Urinal Diaper # Voids 4 - Exam PHYSICAL EXAMINATION: Patient is lying in the bed comfortably, mild acute distress, awake alert and oriented.. HEENT: Normocephalic. Neck is supple. Pupils reactive. Nostrils clear. Oral cavity is moist. Neck reveals no JVD, carotid bruits, or thyromegaly. CHEST EXAMINATION: Trachea is central. Symmetrical expansion.Bibasilar dimin ished sounds. Lung seo clear to auscultation and percussion. CARDIAC: Normal S1, S2 with no gallops. No murmurs ABDOMEN: Soft. Bowel sounds normal. No organomegaly. No abdominal bruits. Extremities: reveal no edema. No clubbing or cyanosis Neurologically awake, alert, oriented x3 with well-coordinated movements. No focal deficits noted Skin: No rash or skin lesions. Psychiatric: Cooperative. Nonsuicidal Musculoskeletal: No joint swelling or deformity. Normal range of motion. - Labs CBC & Chem 7: 05/13/21 03:09 05/13/21 03:09 Labs: Abnormal Lab Results - Last 24 Hours (Table) 05/13/21 05/13/21 05/13/21 Range/Units 03:09 03:09 06:50 WBC 10.67 H (4.50-10.00) X 10*3/uL Neutrophils # 8.27 H (1.80-7.70) X 10*3/uL Monocytes # 1.16 H (0.20-1.00) X 10*3/uL Eosinophils # 0.03 L (0.04-0.35) X 10*3/uL Creatinine 1.6 H (0.6-1.5) mg/dL Est GFR (CKD-EPI)AfAm 50.6 L (60.0-200.0) Est GFR (CKD-EPI)NonAf 43.6 L (60.0-200.0) BUN/Creatinine Ratio 11.75 L (12.00-20.00) Ratio Glucose 115 H (70-110) mg/dL POC Glucose (mg/dL) 143 H (75-99) mg/dL 05/13/21 05/13/21 05/13/21 Range/Units 11:19 16:06 20:23 WBC (4.50-10.00) X 10*3/uL Neutrophils # (1.80-7.70) X 10*3/uL Monocytes # (0.20-1.00) X 10*3/uL Eosinophils # (0.04-0.35) X 10*3/uL Creatinine (0.6-1.5) mg/dL Est GFR (CKD-EPI)AfAm (60.0-200.0) Est GFR (CKD-EPI)NonAf (60.0-200.0) BUN/Creatinine Ratio (12.00-20.00) Ratio Glucose (70-110) mg/dL POC Glucose (mg/dL) 119 H 254 H 260 H (75-99) mg/dL Microbiology - Last 24 Hours (Table) 05/12/21 14:15 Blood Culture - Preliminary Blood No Growth after 24 hours 05/12/21 14:00 Blood Culture - Preliminary Blood No Growth after 24 hours 05/12/21 11:25 Urine Culture - Preliminary Urine,Clean Catch Assessment and Plan Assessment: Left hip pain and left shoulder pain likely musculoskeletal. X-ray showed no evidence of acute fracture or dislocation. No lytic lesions. Bladder mass versus enlarged prostate. Bilateral moderate hydronephrosis Hematuria resolved now. Acute urinary tract infection Hyperglycemia with uncontrolled diabetes type 2 insulin-dependent Hypomagnesemia Hypovolemic hyponatremia Acute kidney injury likely prerenal Chronic kidney disease stage III Paroxysmal atrial fibrillation on anticoagulation with Eliquis Hypertension Hyperlipidemia History of NH status post cardiac catheterization. Plan: Patient will continue on IV hydration and antibiotics upon ceftriaxone. Follow- up urine culture report. Neurology was consulted due to hematuria and also bladder mass. Hematuria has resolved now. Patient is left hip pain and left lower abdominal pain. CT of abdomen pelvis showed bilateral hydronephrosis and hydroureter. Continue with home medications and pain management with tramadol and dilaudid added. Left hip x-ray was done. CRP and ER will be ordered. Continue to follow closely. Time with Patient: Greater than 30
[2021-05-14] MEDS: traMADol 50 MG TAB PO PRN ×3 (03:37→22:04)
[2021-05-14 07:01] LABS: Glucose,Whole Blood 154 mg/dL (75-99)
[2021-05-14] MEDS: INSULIN ASPART (NovoLOG) 100 UNIT/ML VIAL SQ SCH ×6 (07:31→20:39)
[2021-05-14] MEDS: NICOTINE 14MG/24HR PATCH TRANSDERM SCH ×2 (07:32→07:34)
[2021-05-14] MEDS: METOPROLOL TARTRATE 50 MG TAB PO SCH ×2 (07:32→20:39)
[2021-05-14] MEDS: HYDROmorphone 1 MG/ML 1 ML SYRINGE IVP PRN ×2 (07:32→17:47)
[2021-05-14] MEDS: SERTRALINE 50 MG TAB PO SCH (07:32)
[2021-05-14] MEDS: SODIUM CHLORIDE 0.9% 1,000 ML IV SCH ×2 (07:33→20:42)
[2021-05-14] MEDS: INSULIN DETEMIR (LEVEMIR) 100 UNIT/ML SYR SQ SCH ×2 (07:34→20:41)
[2021-05-14] MEDS: TAMSULOSIN 0.4 MG CAP.ER.24H PO SCH ×2 (07:35→20:39)
[2021-05-14] MEDS ORDERED: APIXABAN 5 MG TAB PO SCH (09:00)
[2021-05-14 09:14] LABS: African American GFR (CKD) 52.9 (60.0-200.0); Anion Gap 12.5 mmol/L (10.00-18.00); BUN/Creat Ratio 14.94 Ratio (12.00-20.00); Calcium 9.8 mg/dL (8.7-10.3); Carbon Dioxide 21.4 mmol/L (20.0-27.5); Non-African American GFR(CKD) 45.7 (60.0-200.0); Potassium 4.3 mmol/L (3.5-5.5)
[2021-05-14 09:42] LABS: C Reactive Protein 3.9 mg/dL (0.00-0.80)
--- NOTE | 2021-05-14 11:32 | P.PN ---
Subjective From records Patient is a 70-year-old male with a known history of hypertension, hyperlipidemia, diabetes type 2 insulin-dependent, history of [place] status post cardiac catheterization, currently everyday smoker and BPH presented to ER with complaints of left hip pain and also left shoulder pain. Pain gets worse with movement. Patient denies any recent falls. Patient initially presented to ER and had CT abdominal pelvis which showed moderate bilateral hydronephrosis and hydroureter. This could relate to reflux. Appearance not changed compared with exam. Dilated gallbladder increased compared to holograms history of cholecystitis. There are few calcified gallstones. Pancreatic calcifications appear unchanged and consistent with chronic pancreatitis. Sigmoid diverticulosis hypertrophic changes in the urinary bladder similar to old exam. Nodular density at the base of the bladder could be enlarged prostate or bladder mass. Unchanged. Enlarged prostate. There is a 12 mm stellate nodule in the subpleural lateral right lower lobe that appears to be new compared to old exam. Follow-up recommended. X-ray of the shoulder no acute fracture or dislocation. Moderate narrowing and mild to moderate spurring at the acromioclavicular joint is more prominent from prior. Hip x-ray showed mild to moderate degenerative joint disease. Laboratory data showed sodium 135 potassium 4.3 chloride 102 bicarb is 21 BUN 20 and creatinine 1.47 blood sugar is 267 Urinalysis showed large blood nitrate negative and large leukocyte esterase with elevated RBCs and WBCs. WBC 11.5 hemoglobin 14.3 and platelets 277. Coronavirus PCR not detected. 05/13/2021 Patient is currently lying in the bed. Awake alert and still complaining of left lower abdominal pain and hip pain. X-ray of the hip showed mild degenerative changes without acute fracture or dislocation. Overlying soft tissue appears unremarkable. Vascular calcifications noted. Otherwise no acute process identified. Patient admitted on pain management. Urology has seen the patient and recommend outpatient follow-up for cystoscopy. Resume Eliquis at this time. PT OT consult and continue with pain management. Subjective: resuming the care from above 05/14/2021 This is a pleasant 70 years old male who presents on 05/12 for limb pain and inability to walk. Patient complains from weakness in all 4 extremities but more pronounced in the left leg as he states he barely can lift it off the bed. Also he has decreased sensation when examined his left leg. However he complains also to some degree of weakness from all 4 extremities motor he could not move his both arms above his head however passively I could move them up and patient had good tone in his muscles and he could hold them up above his head but then he will drop down once released Patient denies any abdominal pain today and he states that his hematuria has been cleared today back to yellow urine. Patient also feels generally weak and he might need to go to rehab. Patient hematuria problem is not in the room and he has his urologist seen prior to hospitalization and he is supposed to get stress test with bass singer this, the Friday as part of preop evaluation. Also patient states that he was on baby aspirin at home but he ran out of it about one week prior to hospitalization. Also he is on Eliquis Patient told me that he has A. fib and that's why he takes Eliquis at home and that has been taking Eliquis and aspirated one week ago Objective - Vital Signs Vital signs: Vital Signs Temp 97.7 F 05/14/21 08:00 Pulse 71 05/14/21 08:00 Resp 17 05/14/21 08:00 BP 134/84 05/14/21 08:00 Pulse Ox 94 L 05/14/21 08:00 Intake & Output 05/13/21 05/14/21 05/14/21 18:59 06:59 18:59 Intake Total 600 600 650 Balance 600 600 650 Intake: Intake, IV Titration 600 650 Amount Sodium Chloride 0.9% 1, 600 600 000 ml @ 75 mls/hr IV . [id number] [facility] Rx#:[id number] cefTRIAXone 1 gm In 50 Sodium Chloride 0.9% 50 ml @ 100 mls/hr IVPB Q24HR [facility] Rx#:[id number] Oral 600 Other: Voiding Method External Catheter Urinal Diaper # Voids 3 - Exam GENERAL: The patient is alert and oriented x3, not in any acute distress. Well developed, well nourished. HEENT: Pupils are round and equally reacting to light. EOMI. No scleral icterus. No conjunctival pallor. Normocephalic, atraumatic. No pharyngeal erythema. No thyromegaly. CARDIOVASCULAR: S1 and S2 present. No murmurs, rubs, or gallops. PULMONARY: Chest is clear to auscultation, no wheezing or crackles. ABDOMEN: Soft, nontender, nondistended, normoactive bowel sounds. No palpable organomegaly. MUSCULOSKELETAL: No joint swelling or deformity. EXTREMITIES: No cyanosis, clubbing, or pedal edema. -NEUROLOGICAL: patient is a AAOX3 to time, place and person. Cranial nn nerves are grossly intact Patient has generalized weakness, more weakness in the left leg as he couldn't lifted barely off the bed, with decreased sensation compared to the right leg. His right leg also somewhat weak. Meningeal signs are absent SKIN: No rashes. no petechiae. - Labs CBC & Chem 7: 05/13/21 03:09 05/14/21 03:33 Labs: Abnormal Lab Results - Last 24 Hours (Table) 05/13/21 05/13/21 05/13/21 Range/Units 11:19 16:06 20:23 Sodium (135-145) mmol/L Est GFR (CKD-EPI)AfAm (60.0-200.0) Est GFR (CKD-EPI)NonAf (60.0-200.0) Glucose (70-110) mg/dL POC Glucose (mg/dL) 119 H 254 H 260 H (75-99) mg/dL C-Reactive Protein (0.00-0.80) mg/dL 05/14/21 05/14/21 Range/Units 03:33 07:00 Sodium 133 L (135-145) mmol/L Est GFR (CKD-EPI)AfAm 52.9 L (60.0-200.0) Est GFR (CKD-EPI)NonAf 45.7 L (60.0-200.0) Glucose 145 H (70-110) mg/dL POC Glucose (mg/dL) 154 H (75-99) mg/dL C-Reactive Protein 3.90 H (0.00-0.80) mg/dL Microbiology - Last 24 Hours (Table) 05/12/21 14:15 Blood Culture - Preliminary Blood No Growth after 24 hours 05/12/21 14:00 Blood Culture - Preliminary Blood No Growth after 24 hours 05/12/21 11:25 Urine Culture - Preliminary Urine,Clean Catch Assessment and Plan Assessment: Left leg weakness and decreased sensation Generalized weakness with Left hip pain and left shoulder pain likely musculoskeletal. X-ray showed no evidence of acute fracture or dislocation. No lytic lesions. Bladder mass versus enlarged prostate. Needs cystoscopy as an outpatient Bilateral moderate hydronephrosis Hematuria resolved now. Acute urinary tract infection. Follow-up urine culture Hyperglycemia with uncontrolled diabetes type 2 insulin-dependent Hypomagnesemia Hypovolemic hyponatremia Acute kidney injury likely prerenal Chronic kidney disease stage III Paroxysmal atrial fibrillation on anticoagulation with Eliquis Hypertension Hyperlipidemia History of [place] status post cardiac catheterization. Plan: This is a pleasant 70 years old male who presents with hematuria and generalized weakness and generalized pain. Left leg weakness and decreased sensation. Continue with Eliquis, resume baby aspirin 81 mg. Consult neurology service. Urology on the case and patient informed to need cystoscopy and possible TURP as an outpatient and he verbalized understanding and acceptance. The risk of cancer explained. Follow-up with bass singer Dr. Snow on this coming Friday for stress test. He is discharged before that. Patient informed and he agrees. Labs and medication were reviewed.. Continue same treatment. Continue with symptomatic treatment. Resume home medication. Monitor lytes and vitals. DVT and GI prophylaxis. Further recommendationsas per clinical course of the patient DVT prophylaxis: Eliquis GI Prophylaxis: Pepcid PT/OT: Pending. Possible rehab, social media content manager consult Prognosis is guarded
[2021-05-14 11:49] LABS: Glucose,Whole Blood 91 mg/dL (75-99)
[2021-05-14] MEDS: FAMOTIDINE 20 MG/2 ML VIAL IV SCH (11:56)
[2021-05-14 12:01] LABS: Basophils # (A) 0.03 X 10*3/uL (0.00-0.10); Basophils % (A) 0.3 %; Eosinophils # (A) 0.06 X 10*3/uL (0.04-0.35); Eosinophils % (A) 0.6 %; HCT 45.2 % (39.6-50.0); HGB 14.6 g/dL (13.0-17.0); Immature Grans, Automated 0.6 %; Lymphocytes # (A) 1.21 X 10*3/uL (0.90-5.00); Lymphocytes % (A) 11.8 %; MCH 29.9 pg (27.0-32.0); MCHC 32.3 g/dL (32.0-37.0); MCV 92.4 fL (80.0-97.0); Mean Platelet Volume 11.2 fL (9.5-12.2); Monocytes # (A) 1.18 X 10*3/uL (0.20-1.00); Monocytes % (A) 11.5 %; NRBC Per 100 WBC 0 /100 WBCS (0.0-0.0); Neutrophils # (A) 7.72 X 10*3/uL (1.80-7.70); Neutrophils % (A) 75.2 %; Platelet Count 342 X 10*3/uL (140-440); RBC 4.89 X 10*6/uL (4.40-5.60); RDW 13.2 % (11.5-14.5); WBC 10.26 X 10*3/uL (4.50-10.00)
[2021-05-14] MEDS ORDERED: HEPARIN SODIUM 1,000 UN/ML (10ML VL) IV PRN (13:44)
[2021-05-14] MEDS ORDERED: HEPARIN SODIUM 1,000 UN/ML (10ML VL) IV ONE (13:44)
[2021-05-14] MEDS: HEPARIN SOD,PORK IN 0.45% NACL 25,000 UNIT in 0.45% NACL 1 250ML.BAG IV SCH (14:51)
[2021-05-14 15:07] LABS: Partial Thromboplastin Time 31.5 sec (22.0-30.0); Prothrombin Time 11.1 sec (9.0-12.0)
[2021-05-14 15:32] LABS: Appearance,Urine Turbid (Clear); Bilirubin,Urine Negative (Negative); Blood,Urine Large (Negative); Color,Urine Light Yellow; Glucose,Urine (UA) Negative (Negative); Ketones,Urine Negative (Negative); Leukocyte Esterase,Urine Large (Negative); Nitrite,Urine Negative (Negative); PH, Urine 6.5 (5.0-8.0); Protein,Urine 1+ (Negative); RBC,Urine 45 /hpf (0-5); Specific Gravity,Urine 1.014 (1.001-1.035); Urobilinogen,Urine <2.0 mg/dL (<2.0); WBC,Urine >182 /hpf (0-5)
[2021-05-14 16:43] LABS: Glucose,Whole Blood 150 mg/dL (75-99)
--- NOTE | 2021-05-14 16:44 | P.CNNES ---
History of Present Illness Consult date: 05/14/21 Requesting physician: Bruce E Sheet Reason for Consult: left leg weakness and decrease sensation History of Present Illness: Patient is a 70-year-old male came to the hospital 2 days ago on 05/12/2021 for evaluation of increased pain to the left lower extremity when he tries to ambulate. He states his leg umang when he tries to walk also complaining of increased pain to his left shoulder which gets worse with the movement. No falls. No problems with urinary or fecal incontinence. Patient states that all his symptoms started acutely 4-5 days ago, when he woke up in the morning with difficulty with ambulation, leg weakness. 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 He has no problem going up and down the truck. He denies any falls or recent trauma. He does not use any assistive device at baseline. Patient states that along with the weakness in the lower extremity, which she claims is waist down, also involves bilateral shoulders with aching. He admits to having little slurred speech but denies any facial droop problem with the vision or vertigo. He noticed tingling of the left foot once in a while, which goes away when he moves his foot. Denies any tingling in the other 3 limbs. He states that he was getting worse progressively over the last 4 days but today feels slightly better. Denies any numbness of his torso, or pelvic region. He states that sometimes his urine dribbles off and on for last 6-8 months. He has localized neck pain which she rates 2/10, but denies any new back pain. No problem with bowel control. Denies any problem with upper respiratory infection, or stomach flu. He has never received any vaccination for Carrasco virus. Patient states that while in the hospital, he got up, fell backwards, hit head on the side rails, since then he has been having headache involving the right occipital region, now rates 5/10. No previous history of headaches. He has history of diabetes for last 6-8 years, hypertension. He has smoked 1 pack per day for 30 years, denies any alcohol or drugs or marijuana use. Patient states that he lives with his daughter and granddaughter. Patient's blood test shows WBC 11.5, hemoglobin 14.3, platelets 277. Sodium 135 potassium 4.3, BUN 20, creatinine 1.47. Hepatic panel is normal. Troponin negative, CK normal 77. UA shows large amount of leukocyte esterase, more than 182 WBC. Carrasco virus PCR negative. Patient's last hemoglobin A1c 15.8 on 05/27/2020. Patient's blood cultures and urine cultures so far negative. X-ray of the shoulder shows some interval degenerative progression from 2018 study noted. X-ray of the hip showed mild degenerative changes without acute fracture or dislocation in the left hip. EKG shows atrial fibrillation with rapid ventricular response. Nonspecific T-wave abnormality. Review of Systems As above in detail. All other 14 point of review systems reviewed unremarkable. Patient states that he has difficulty with walking. Complains of left leg numbness. No chest pain. No abdominal pain. No nausea vomiting diarrhea. No double vision or loss of vision. No fever or chills. Past Medical History Past Medical History: Coronary Artery Disease (CAD), Diabetes Mellitus, Hyperlipidemia, Hypertension, Myocardial Infarction (ME) Additional Past Medical History / Comment(s): abdominal hernia Last Myocardial Infarction Date:: 1972 History of Any Multi-Drug Resistant Organisms: None Reported Past Surgical History: Heart Catheterization Additional Past Surgical History / Comment(s): stomach surgery, was born with an upside down stomach Additional Past Anesthesia/Blood Transfusion Reaction / Comment(s): No previous transfusion Past Psychological History: No Psychological Hx Reported Smoking Status: Current every day smoker Past Alcohol Use History: None Reported Past Drug Use History: None Reported - Past Family History Mother Family Medical History: Diabetes Mellitus Medications and Allergies Home Medications Medication Instructions Recorded Confirmed Type Apixaban [Eliquis] 5 mg PO BID 05/26/20 05/12/21 History Atorvastatin Calcium [Lipitor] 80 mg PO HS 05/26/20 05/12/21 History Metoprolol Tartrate [Lopressor] 50 mg PO BID 05/26/20 05/12/21 History INSULIN ASPART (NovoLOG) [NovoLOG 5 unit SQ AC-BID 05/12/21 05/12/21 History (formulary)] Insulin Detemir (Levemir) [Levemir] 15 unit SQ BID 05/12/21 05/12/21 History Sertraline [Zoloft] 50 mg PO DAILY 05/12/21 05/12/21 History Sulfamethox-Tmp 800-160Mg [Bactrim 1 tab PO BID 05/12/21 05/12/21 History DS 800-160 mg] Tamsulosin [Flomax] 0.4 mg PO BID 05/12/21 05/12/21 History traMADol HCl [Ultram] 50 mg PO TID PRN 05/12/21 05/12/21 History Allergies Allergy/AdvReac Type Severity Reaction Status Date / Time cephalexin [From Keflex] Allergy Nausea & Verified 05/12/21 11:20 Vomiting & Diarrhea Physical Examination - Vital Signs Vital Signs: Vital Signs Temp Pulse Resp BP Pulse Ox 05/14/21 08:00 97.7 F 71 17 134/84 94 L 05/14/21 02:00 98.1 F 83 18 134/94 96 05/13/21 19:49 97.8 F 105 H 20 127/81 94 L 05/13/21 13:23 97.7 F 100 18 143/93 95 Intake and Output 05/13/21 05/14/21 05/14/21 22:59 06:59 14:59 Intake Total 600 650 Balance 600 650 Intake: Intake, IV Titration 650 Amount Sodium Chloride 0.9% 1, 600 000 ml @ 75 mls/hr IV . [id number] [facility] Rx#:[id number] cefTRIAXone 1 gm In 50 Sodium Chloride 0.9% 50 ml @ 100 mls/hr IVPB Q24HR [facility] Rx#:[id number] Oral 600 Other: Voiding Method Urinal Diaper # Voids 3 Patient is an elderly male, in no acute distress. Patient is alert awake oriented to time place and person. Speech and language functions are normal. No aphasia or dysarthria. Attention, concentration and fund of knowledge is adequate. On cranial examination, pupils are equal, round and reacting to light, visual seo are full on confrontation, extraocular muscles are intact with no nystagmus. Face is symmetric, tongue protrudes to the midline. Palatal elevation and sensation normal, hearing and shoulder shrug normal, facial sensation normal. Shoulder shrug normal. On muscle strength testing, patient has profound weakness of bilateral deltoid. His muscle strength is (right/left) deltoid 2/2, biceps 4+/5-triceps 4+5-/4+5- cow tender 4+5-/4+5-. In the lower extremities his hip flexion 3+/2, hip abduction 4-/4-, hip adduction 4-/4-, knee extension 5-/2-3, ankle dorsiflexion 5/4, toe extension 5/4, plantar flexion 5/5. Deep tendon reflexes completely absent in the arms and legs. Plantars are flat. Sensory to touch is decreased in the left leg as compared to the right. Normal in the upper limbs. Cerebellar function showed no ataxia for [id number] testing, cannot perform in the lower limbs. Gait not able to be checked. On general examination, there is no carotid bruit or murmur, S1-S2 audible. Abdomen is soft nontender. Bowel sounds present. No organomegaly. Chest is clear. Peripheral pulses are present. No edema. Results - Laboratory Findings CBC and BMP: 05/14/21 03:33 05/14/21 03:33 Abnormal Lab Findings: Abnormal Labs 05/12/21 05/12/21 05/12/21 11:11 11:11 11:25 WBC 11.5 H Neutrophils # 9.4 H Monocytes # Eosinophils # Sodium 135 L Carbon Dioxide 21 L Creatinine 1.47 H Est GFR (CKD-EPI)AfAm Est GFR (CKD-EPI)NonAf BUN/Creatinine Ratio Glucose 267 H POC Glucose (mg/dL) Magnesium 1.0 L C-Reactive Protein Urine Protein 1+ H Urine Glucose (UA) 2+ H Urine Blood Large H Ur Leukocyte Esterase Large H Urine RBC >182 H Urine WBC >182 H 05/12/21 05/12/21 05/13/21 16:26 21:23 03:09 WBC 10.67 H Neutrophils # 8.27 H Monocytes # 1.16 H Eosinophils # 0.03 L Sodium Carbon Dioxide Creatinine Est GFR (CKD-EPI)AfAm Est GFR (CKD-EPI)NonAf BUN/Creatinine Ratio Glucose POC Glucose (mg/dL) 313 H 212 H Magnesium C-Reactive Protein Urine Protein Urine Glucose (UA) Urine Blood Ur Leukocyte Esterase Urine RBC Urine WBC 05/13/21 05/13/21 05/13/21 03:09 06:50 11:19 WBC Neutrophils # Monocytes # Eosinophils # Sodium Carbon Dioxide Creatinine 1.6 H Est GFR (CKD-EPI)AfAm 50.6 L Est GFR (CKD-EPI)NonAf 43.6 L BUN/Creatinine Ratio 11.75 L Glucose 115 H POC Glucose (mg/dL) 143 H 119 H Magnesium C-Reactive Protein Urine Protein Urine Glucose (UA) Urine Blood Ur Leukocyte Esterase Urine RBC Urine WBC 05/13/21 05/13/21 05/14/21 16:06 20:23 03:33 WBC Neutrophils # Monocytes # Eosinophils # Sodium 133 L Carbon Dioxide Creatinine Est GFR (CKD-EPI)AfAm 52.9 L Est GFR (CKD-EPI)NonAf 45.7 L BUN/Creatinine Ratio Glucose 145 H POC Glucose (mg/dL) 254 H 260 H Magnesium C-Reactive Protein 3.90 H Urine Protein Urine Glucose (UA) Urine Blood Ur Leukocyte Esterase Urine RBC Urine WBC 05/14/21 07:00 WBC Neutrophils # Monocytes # Eosinophils # Sodium Carbon Dioxide Creatinine Est GFR (CKD-EPI)AfAm Est GFR (CKD-EPI)NonAf BUN/Creatinine Ratio Glucose POC Glucose (mg/dL) 154 H Magnesium C-Reactive Protein Urine Protein Urine Glucose (UA) Urine Blood Ur Leukocyte Esterase Urine RBC Urine WBC Assessment and Plan Assessment: * 70-year-old male admitted with 4-5 day history of rapidly progressive weakness of bilateral upper and lower extremities, proximally > distally. The weakness is mostly symmetric except for relatively more weakness in the left leg as compared to the right. Patient is completely areflexic. Sensory examination revealed mildly decreased sensation in the left leg as compared to the right. No ataxia noted. Rule out Guillain-Bergman syndrome. Rule out spinal cord pathology versus CVA (less likely). Myopathy/myositis unlikely because of normal CPK. * Acute UTI. * Diabetes, poorly controlled * Hypertension * Atrial fibrillation, currently on Eliquis. * Tobacco use 1 pack per day for 30 years. Plan: * MRI of brain and cervical spine with and without contrast, rule out CVA, spinal stenosis/transverse myelitis. * If above tests are unrevealing, then patient will need lumbar puncture to evaluate for elevated proteins. * Patient currently on Eliquis. We will switch to heparin IV for bridging until lumbar puncture can be completed. Discussed with Dr. Anderson. * Blood tests including aldolase, TA, ESR, folate, A1c, immunofixation, serum protein electrophoresis, Lyme titer, MMA, B1, B12, B6. * Patient currently on ceftriaxone for UTI. * Neurology will follow. Thank you for the consult.
[2021-05-14 16:49] LABS: Erythrocyte Sedimentation Rate 21 mm/Hr (0-20)
[2021-05-14 20:19] LABS: Glucose,Whole Blood 202 mg/dL (75-99)
[2021-05-14] MEDS: ATORVASTATIN 80 MG TAB PO SCH (20:39)
[2021-05-15 06:25] LABS: INR 1.1 (<1.2); Prothrombin Time 11.7 sec (9.0-12.0)
[2021-05-15 07:06] LABS: Glucose,Whole Blood 247 mg/dL (75-99)
[2021-05-15] MEDS: INSULIN ASPART (NovoLOG) 100 UNIT/ML VIAL SQ SCH ×6 (07:28→22:08)
[2021-05-15 09:44] LABS: Basophils # (A) 0.04 X 10*3/uL (0.00-0.10); Basophils % (A) 0.4 %; Eosinophils # (A) 0.04 X 10*3/uL (0.04-0.35); Eosinophils % (A) 0.4 %; HGB 14.5 g/dL (13.0-17.0); Immature Grans, Automated 0.7 %; Lymphocytes # (A) 1.31 X 10*3/uL (0.90-5.00); Lymphocytes % (A) 13.7 %; MCH 30.3 pg (27.0-32.0); MCV 92.1 fL (80.0-97.0); Mean Platelet Volume 11.4 fL (9.5-12.2); Monocytes # (A) 0.99 X 10*3/uL (0.20-1.00); Monocytes % (A) 10.3 %; NRBC Per 100 WBC 0 /100 WBCS (0.0-0.0); Neutrophils # (A) 7.13 X 10*3/uL (1.80-7.70); Neutrophils % (A) 74.5 %; Platelet Count 344 X 10*3/uL (140-440); RBC 4.78 X 10*6/uL (4.40-5.60); RDW 13.1 % (11.5-14.5); WBC 9.58 X 10*3/uL (4.50-10.00)
[2021-05-15 10:13] LABS: Protein, Total 7.1 g/dL (6.2-8.2)
[2021-05-15 10:32] LABS: Folate, Serum 6.3 ng/mL (4.40-31.00)
[2021-05-15] MEDS: SERTRALINE 50 MG TAB PO SCH (10:36)
[2021-05-15] MEDS: METOPROLOL TARTRATE 50 MG TAB PO SCH ×2 (10:36→20:50)
[2021-05-15] MEDS: INSULIN DETEMIR (LEVEMIR) 100 UNIT/ML SYR SQ SCH ×2 (10:37→22:08)
[2021-05-15] MEDS: FAMOTIDINE 20 MG/2 ML VIAL IV SCH (10:38)
[2021-05-15] MEDS: NICOTINE 14MG/24HR PATCH TRANSDERM SCH (10:39)
[2021-05-15] MEDS: TAMSULOSIN 0.4 MG CAP.ER.24H PO SCH ×2 (10:39→20:50)
--- NOTE | 2021-05-15 11:02 | MR ---
EXAMINATION TYPE: MR brain/cspine wo/w DATE OF EXAM: 05/15/2021 COMPARISON: NONE HISTORY: Weakness, all 4 extremities, r/o CVA, vs T. myelitis TECHNIQUE: Multiplanar, multisequence images of the brain and brainstem and cervical spine are all performed wit hout and with IV contrast, utilizing 11 mL intravenous Gadavist . FINDINGS: Brain: Diffusion weighted images demonstrate no evidence of a recent infarct or other diffusion abnormality. There is mild to moderate ventricular and sulcal prominence. Scattered foci of T2 hyperintensity ar e seen throughout the deep and periventricular white matter bilaterally. Approximately 40 scattered l esions are present. Lesions are nonspecific in appearance and distribution. Midline structures demonstrate normal morphology. The craniocervical junction appears within normal limits. Post contrast images demonstrate no abnormal enhancement. The dural venous sinuses appear pa tent. Mild mucosal thickening involving posterior left ethmoid sinuses. Globes are intact bilaterally . IMPRESSION: 1. No MRI evidence for recent infarct. 2. Mild to moderate diffuse cerebral atrophy and moderate chronic small vessel ischemic changes. No suspicious enhancement noted. MRI CERVICAL SPINE: The exam is degraded by patient motion making evaluation slightly suboptimal. FINDINGS: Coronal images show slight scoliotic curvature. Sagittal images of the cervical spine show the craniocervical junction to appear within normal limits. The cervical and upper thoracic spinal c ord is grossly normal in caliber. . There appears to be central T2 hyperintense signal sagittal image 9 running from the inferior T1 vert ebra to the mid T2 vertebra roughly 1.8 cm segment. The vertebral body and intravertebral disk height s are normal. The bone marrow signal intensity is within normal limits. No abnormal postcontrast enhancement is seen. Axial images are degraded by artifact. No large disc herniation or significant neural foraminal narro wing at any cervical level is identified. No abnormal enhancement is seen. IMPRESSION: Suboptimal study without definitive abnormal cord signal or enhancement in the cervical s pine. There is central slightly T2 hyperintense nonenhancing lesion in the upper thoracic spine over 1.8 cm segment favoring focal syrinx.
[2021-05-15 11:57] LABS: Glucose,Whole Blood 125 mg/dL (75-99)
[2021-05-15 13:06] LABS: Erythrocyte Sedimentation Rate 28 mm/Hr (0-20)
[2021-05-15] MEDS: traMADol 50 MG TAB PO PRN (13:35)
[2021-05-15] MEDS: HEPARIN SOD,PORK IN 0.45% NACL 25,000 UNIT in 0.45% NACL 1 250ML.BAG IV SCH (13:36)
[2021-05-15] MEDS: SODIUM CHLORIDE 0.9% 1,000 ML IV SCH ×2 (13:37→21:14)
[2021-05-15] MEDS: FOLIC ACID 1 MG TAB PO SCH (14:32)
[2021-05-15] MEDS: CYANOCOBALAMIN 1,000 MCG/ML 1 ML VIAL IM SCH (15:13)
[2021-05-15] MEDS ORDERED: IMMUNE GLOBULIN (GAMMAGARD) 20 GM in EMPTY BAG 1 BAG IV ONE ×2 (16:00→21:00)
[2021-05-15 16:35] LABS: Glucose,Whole Blood 105 mg/dL (75-99)
[2021-05-15] MEDS: ACETAMINOPHEN TAB 325 MG TAB PO PRN (17:49)
[2021-05-15] MEDS: ATORVASTATIN 80 MG TAB PO SCH (20:50)
[2021-05-15 21:23] LABS: Glucose,Whole Blood 87 mg/dL (75-99)
[2021-05-15 23:09] LABS: Immunoglobulin M 73.9 mg/dL (40.0-280.0)
--- NOTE | 2021-05-15 23:56 | P.PN ---
Subjective Progress Note Date: 05/15/21 05/14/2021 This is a pleasant 70 years old male who presents on 05/12 for limb pain and inability to walk. Patient complains from weakness in all 4 extremities but more pronounced in the left leg as he states he barely can lift it off the bed. Also he has decreased sensation when examined his left leg. However he complains also to some degree of weakness from all 4 extremities motor he could not move his both arms above his head however passively I could move them up and patient had good tone in his muscles and he could hold them up above his head but then he will drop down once released Patient denies any abdominal pain today and he states that his hematuria has been cleared today back to yellow urine. Patient also feels generally weak and he might need to go to rehab. Patient hematuria problem is not in the room and he has his urologist seen prior to hospitalization and he is supposed to get stress test with utility arborist this, the Friday as part of preop evaluation. Also patient states that he was on baby aspirin at home but he ran out of it about one week prior to hospitalization. Also he is on Eliquis Patient told me that he has A. fib and that's why he takes Eliquis at home and that has been taking Eliquis and aspirated one week ago 05/15/2021 Patient seen in follow-up today from previous physician. He is alert and oriented 3, unable to lift his left leg off the bed. He does have more strength in his right leg. Upper extremities are bilateral strength but weak. Continues with a congested cough he is unable to expectorate. Patient was supposed to have a stress test on Friday for cardiology clearance pending a bladder biopsy with urology outpatient. MRI brain today shows no MRI evidence for recent infarct, mild to moderate diffuse cerebral atrophy and moderate chronic small vessel ischemic changessuspicious enhancement noted. MRI cervical spine shows slight scoliotic curvature. This was a suboptimal study without definitive abnormal cord signal or enhancement in the cervical spine. There is central slightly T2 hyperintense nonenhancing lesion in the upper thoracic spine over 1.8 cm segement favoring focal syrinx. Most recent plan per neurology was to complete MRI to rule out stroke with possible lumbar puncture after. Labs today show unremarkable white count, A1c 10.6, total protein 7.1, B12 308, folate 6.30, TSH 3.250. folate and B12 are low normal. Temp 90.5, heart rate 94, blood pressure 141/94, 95% room air. Continues on IV Rocephin, IV heparin drip as eliquis is currently on hold. ROS Constitutional: Denied any fatigue denied any fever. Cardio vascular: denied any chest pain, palpitations Gastrointestinal denied any nausea vomiting Pulmonary: Denied any shortness of breath cough Neurologic denied any new focal deficits All inpatient medications were reviewed and appropriate changes in these medications as dictated in the interval history and assessment and plan. PHYSICAL EXAMINATION: GENERAL: The patient is alert and oriented x3, not in any acute distress. Well developed, well nourished. HEENT: Pupils are round and equally reacting to light. EOMI. No scleral icterus. No conjunctival pallor. Normocephalic, atraumatic. No pharyngeal erythema. No thyromegaly. CARDIOVASCULAR: S1 and S2 present. No murmurs, rubs, or gallops. PULMONARY: Congested cough, coarse rhonchi noted ABDOMEN: Soft, nontender, nondistended, normoactive bowel sounds. No palpable organomegaly. MUSCULOSKELETAL: No joint swelling or deformity. EXTREMITIES: No cyanosis, clubbing, or pedal edema. NEUROLOGICAL: left lower extremity weakness, decreased sensation SKIN: No rashes. Assessment and Plan Assessment: Left leg weakness and decreased sensation Generalized weakness with Left hip pain and left shoulder pain likely musculoskeletal. X-ray showed no evidence of acute fracture or dislocation. No lytic lesions. Bladder mass versus enlarged prostate. Needs cystoscopy as an outpatient, bladder biopsy scheduled with urology outpatient Bilateral moderate hydronephrosis Hematuria resolved now. Acute urinary tract infection. Follow-up urine culture Hyperglycemia with uncontrolled diabetes type 2 insulin-dependent Hypomagnesemia Hypovolemic hyponatremia Acute kidney injury likely prerenal Chronic kidney disease stage III Paroxysmal atrial fibrillation on anticoagulation with Eliquis Hypertension Hyperlipidemia History of VT status post cardiac catheterization. Plan: This is a pleasant 70 years old male who presents with hematuria and generalized weakness and generalized pain. Left leg weakness and decreased sensation. Consult neurology service. Patient transferred to ICU for IVIG infusions Urology on the case and patient informed to need cystoscopy and possible TURBT as an outpatient and he verbalized understanding and acceptance. The risk of cancer explained. Was scheduled with Dr. Snow on this coming Friday for stress test. Labs and medication were reviewed.. Continue same treatment. Continue with symptomatic treatment. Resume home medication. Monitor lytes and vitals. DVT and GI prophylaxis. Further recommendationsas per clinical course of the patient DVT prophylaxis: Eliquis O/H on heparin gtt GI Prophylaxis: Pepcid PT/OT: IP rehab, delinquency prevention social worker consult Prognosis is guarded Objective - Vital Signs Vital signs: Vital Signs Temp 98.5 F 05/15/21 08:00 Pulse 94 05/15/21 08:00 Resp 18 05/15/21 01:30 BP 141/94 05/15/21 08:00 Pulse Ox 95 05/15/21 08:00 Intake & Output 05/14/21 05/15/21 05/15/21 18:59 06:59 18:59 Intake Total 650 79.183 170.817 Output Total 550 Balance 650 -470.817 170.817 Intake: Intake, IV Titration 650 79.183 170.817 Amount Heparin Sod,Pork in 0.45% 79.183 170.817 NaCl 25,000 unit In 0.45 % NaCl 1 250ml.bag @ 9 UNITS/KG/HR 10.002 mls/hr IV .Q24H [facility] Rx#: [id number] Sodium Chloride 0.9% 1, 600 000 ml @ 75 mls/hr IV . [id number] [facility] Rx#:[id number] cefTRIAXone 1 gm In 50 Sodium Chloride 0.9% 50 ml @ 100 mls/hr IVPB Q24HR [facility] Rx#:[id number] Output: Urine 550 Other: Voiding Method Diaper # Voids 2 - Labs CBC & Chem 7: 05/15/21 05:18 05/14/21 03:33 Labs: Abnormal Lab Results - Last 24 Hours (Table) 05/14/21 05/14/21 05/14/21 Range/Units 03:33 14:06 14:55 Immature Gran # (0.00-0.04) X 10*3/uL ESR 21 H (0-20) mm/Hr APTT 31.5 H (22.0-30.0) sec POC Glucose (mg/dL) (75-99) mg/dL Hemoglobin A1c (0.0-6.0) % Urine Protein 1+ H (Negative) Urine Blood Large H (Negative) Ur Leukocyte Esterase Large H (Negative) Urine RBC 45 H (0-5) /hpf Urine WBC >182 H (0-5) /hpf Urine WBC Clumps Many H (None) /hpf 05/14/21 05/14/21 05/14/21 Range/Units 16:40 20:15 21:09 Immature Gran # (0.00-0.04) X 10*3/uL ESR (0-20) mm/Hr APTT 39.5 H (22.0-30.0) sec POC Glucose (mg/dL) 150 H 202 H (75-99) mg/dL Hemoglobin A1c (0.0-6.0) % Urine Protein (Negative) Urine Blood (Negative) Ur Leukocyte Esterase (Negative) Urine RBC (0-5) /hpf Urine WBC (0-5) /hpf Urine WBC Clumps (None) /hpf 05/15/21 05/15/21 05/15/21 Range/Units 05:18 05:18 05:18 Immature Gran # 0.07 H (0.00-0.04) X 10*3/uL ESR 28 H (0-20) mm/Hr APTT 51.8 H (22.0-30.0) sec POC Glucose (mg/dL) (75-99) mg/dL Hemoglobin A1c 10.6 H (0.0-6.0) % Urine Protein (Negative) Urine Blood (Negative) Ur Leukocyte Esterase (Negative) Urine RBC (0-5) /hpf Urine WBC (0-5) /hpf Urine WBC Clumps (None) /hpf 05/15/21 05/15/21 Range/Units 07:05 11:56 Immature Gran # (0.00-0.04) X 10*3/uL ESR (0-20) mm/Hr APTT (22.0-30.0) sec POC Glucose (mg/dL) 247 H 125 H (75-99) mg/dL Hemoglobin A1c (0.0-6.0) % Urine Protein (Negative) Urine Blood (Negative) Ur Leukocyte Esterase (Negative) Urine RBC (0-5) /hpf Urine WBC (0-5) /hpf Urine WBC Clumps (None) /hpf Microbiology - Last 24 Hours (Table) 05/14/21 14:55 Urine Culture - Preliminary Urine,Clean Catch 05/12/21 14:00 Blood Culture - Preliminary Blood No Growth after 48 hours 05/12/21 14:15 Blood Culture - Preliminary Blood No Growth after 48 hours 05/12/21 11:25 Urine Culture - Final Urine,Clean Catch
--- NOTE | 2021-05-16 00:09 | P.PN ---
Subjective Progress Note Date: 05/15/21 Patient was seen for a follow-up. Patient states his symptoms are getting worse. He has developed numbness in the fingers and the hands up to the mid palm bilaterally. Also has numbness in the legs from waist down. Patient feels more weakness in the arms and legs. He has very weak cough. Objective - Vital Signs Vital signs: Vital Signs Temp 97.9 F 05/15/21 17:00 Pulse 104 H 05/15/21 17:00 Resp 16 05/15/21 17:00 BP 134/104 05/15/21 17:00 Pulse Ox 93 L 05/15/21 17:00 Intake & Output 05/14/21 05/15/21 05/15/21 18:59 06:59 18:59 Intake Total 650 79.183 235.275 Output Total 550 Balance 650 -470.817 235.275 Intake: Intake, IV Titration 650 79.183 235.275 Amount Heparin Sod,Pork in 0.45% 79.183 170.817 NaCl 25,000 unit In 0.45 % NaCl 1 250ml.bag @ 9 UNITS/KG/HR 10.002 mls/hr IV .Q24H [facility] Rx#: [id number] Immune Globulin ( 64.458 Gammagard) 20 gm In Empty Bag 1 bag @ Per Protocol 42.5 mls/hr IV .[id number] [facility] Rx#:[id number] Sodium Chloride 0.9% 1, 600 000 ml @ 75 mls/hr IV . [id number] [facility] Rx#:[id number] cefTRIAXone 1 gm In 50 Sodium Chloride 0.9% 50 ml @ 100 mls/hr IVPB Q24HR [facility] Rx#:[id number] Output: Urine 550 Other: Voiding Method Diaper # Voids 2 - Exam patient is laying in the bed. Appears slightly short of breath. Speech and language functions are normal. Cranial nerves are normal. Muscle strength revealed (right/left) deltoid 2/2, biceps 4+/4, triceps 4+/4, abrasive grader 4/4. Hip flexion 3/0, ankle dorsiflexion 5-/2. Patient is diffusely areflexic. Sensations are decreased distally in the hands, and also in the lower extremities. - Labs CBC & Chem 7: 05/15/21 05:18 05/14/21 03:33 Labs: Abnormal Lab Results - Last 24 Hours (Table) 05/14/21 05/14/21 05/15/21 Range/Units 20:15 21:09 05:18 Immature Gran # 0.07 H (0.00-0.04) X 10*3/uL ESR 28 H (0-20) mm/Hr APTT 39.5 H (22.0-30.0) sec POC Glucose (mg/dL) 202 H (75-99) mg/dL Hemoglobin A1c (0.0-6.0) % 05/15/21 05/15/21 05/15/21 Range/Units 05:18 05:18 07:05 Immature Gran # (0.00-0.04) X 10*3/uL ESR (0-20) mm/Hr APTT 51.8 H (22.0-30.0) sec POC Glucose (mg/dL) 247 H (75-99) mg/dL Hemoglobin A1c 10.6 H (0.0-6.0) % 05/15/21 05/15/21 Range/Units 11:56 16:34 Immature Gran # (0.00-0.04) X 10*3/uL ESR (0-20) mm/Hr APTT (22.0-30.0) sec POC Glucose (mg/dL) 125 H 105 H (75-99) mg/dL Hemoglobin A1c (0.0-6.0) % Microbiology - Last 24 Hours (Table) 05/12/21 14:15 Blood Culture - Preliminary Blood No Growth after 72 hours 05/12/21 14:00 Blood Culture - Preliminary Blood No Growth after 72 hours 05/14/21 14:55 Urine Culture - Preliminary Urine,Clean Catch Assessment and Plan Assessment: * 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 Patient has presented with rapidly progressive proximal and distal weakness of upper and lower extremities, diffuse areflexia, and sensory loss distally in the hands and in bilateral legs. Patient is noticing difficulty with breathing, and very weak cough, probably indicating involvement of the respiratory muscles. * Acute UTI. * Diabetes, poorly controlled * Mild to moderate renal insufficiency. * Hypertension * Atrial fibrillation, currently on Eliquis. * Tobacco use 1 pack per day for 30 years. Plan: * MRI of brain revealed no acute stroke. Mild to moderate diffuse cerebral atrophy and moderate chronic small vessel ischemic changes. No suspicious enhancement noted. I personally reviewed MRI of the brain and agree with the findings. * MRI of the cervical spine with and without contrast was suboptimal study without definitive abnormal cord signal or enhancement in the cervical spine. There is central slightly T2 hyperintense nonenhancing lesion in the upper thoracic spine over 1.8 cm segment favoring a focal syrinx. I personally reviewed MRI of the cervical spine. The lesion mentioned appeared artifactual in nature. Again, this lesion would not explain any symptoms in the upper extremities for sure. * Stat Lumbar puncture was ordered by anesthesia, to evaluate for elevated proteins. Per anesthesia, patient cannot receive lumbar puncture until , 05/17/2021 because patient has received Eliquis. Patient has to be off Eliquis for 3 days before he can receive a lumbar puncture. * Recommend patient to be transferred to ICU for close monitoring, as his respiration seems to be affected. Patient would need vital capacity and NIF checked every 4 hours. * Patient will be started on IVIG 0.4 g/kg per day for 5 days. * Eliquis on hold since 05/14/2021. Patient on heparin IV for bridging until lumbar puncture can be completed. Discussed with Dr. Jefferson. * Blood tests including TA negative B12 308, folic acid 6.3, TSH 3.25, hemoglobin A1c 10.6, ESR 28. IgG 1398, IgA is 513/350, IgM 73.9 normal. (No IgA deficiency) * Patient started on folic acid 1 mg daily and vitamin B12 1000 g IM daily for 3 days. * Aldolase, immunofixation, serum protein electrophoresis, Lyme titer, MMA, B1, B6 still pending. We will also check IgG, IgM and IgA levels. * Patient currently on ceftriaxone for UTI. * Need to closely monitor renal functions with IVIG. Discussed with the pharmacist, who felt IVIG was safe. * telemetry monitoring to rule out any arrhythmia. * Patient on heparin IV for DVT prophylaxis. Time with Patient: Greater than 30
[2021-05-16 06:05] LABS: Glucose,Whole Blood 171 mg/dL (75-99)
[2021-05-16 06:17] LABS: Basophils % (A) 0 %; Eosinophils # (A) 0.1 k/uL (0-0.7); Eosinophils % (A) 1 %; HCT 46.3 % (39.0-53.0); HGB 15.1 gm/dL (13.0-17.5); Lymphocytes % (A) 13 %; MCH 31.2 pg (25.0-35.0); MCHC 32.6 g/dL (31.0-37.0); MCV 95.7 fL (80.0-100.0); Mean Platelet Volume 7.8; Monocytes # (A) 0.6 k/uL (0-1.0); Monocytes % (A) 7 %; Neutrophils # (A) 5.9 k/uL (1.3-7.7); Neutrophils % (A) 77 %; Platelet Count 327 k/uL (150-450); RBC 4.84 m/uL (4.30-5.90); RDW 13.7 % (11.5-15.5); WBC 7.7 k/uL (3.8-10.6)
[2021-05-16] MEDS: INSULIN ASPART (NovoLOG) 100 UNIT/ML VIAL SQ SCH ×6 (06:29→20:00)
[2021-05-16 06:51] LABS: Calcium 9.5 mg/dL (8.4-10.2); Potassium 4.6 mmol/L (3.5-5.1)
[2021-05-16] MEDS ORDERED: IMMUNE GLOBULIN (GAMMAGARD) 20 GM in EMPTY BAG 1 BAG IV ONE ×2 (09:00→14:00)
[2021-05-16 10:19] LABS: Glucose,Whole Blood 174 mg/dL (75-99)
[2021-05-16] MEDS: HEPARIN SOD,PORK IN 0.45% NACL 25,000 UNIT in 0.45% NACL 1 250ML.BAG IV SCH ×2 (10:28→23:06)
[2021-05-16] MEDS: FAMOTIDINE 20 MG TAB PO SCH (10:31)
[2021-05-16] MEDS: FOLIC ACID 1 MG TAB PO SCH (10:31)
[2021-05-16] MEDS: CYANOCOBALAMIN 1,000 MCG/ML 1 ML VIAL IM SCH (10:31)
[2021-05-16] MEDS: INSULIN DETEMIR (LEVEMIR) 100 UNIT/ML SYR SQ SCH ×2 (10:37→21:01)
[2021-05-16] MEDS: METOPROLOL TARTRATE 50 MG TAB PO SCH ×2 (10:49→19:26)
[2021-05-16] MEDS: TAMSULOSIN 0.4 MG CAP.ER.24H PO SCH ×2 (10:49→20:13)
[2021-05-16] MEDS: SERTRALINE 50 MG TAB PO SCH (11:08)
[2021-05-16 11:29] LABS: Glucose,Whole Blood 141 mg/dL (75-99)
--- NOTE | 2021-05-16 11:30 | P.CNPUL ---
History of Present Illness Consult date: 05/16/21 Requesting physician: Ean Jefferson Reason for consult: other (Possible Guillain-Bergman syndrome.) Chief complaint: Lower and upper extremities weakness History of present illness: This is a 70-year-old white male admitted on 05/12/2021, patient was admitted mostly with a chief complaint of bilateral lower extremities weakness left more so than right, and this has been going on for the last 4 weeks. His symptoms have progressed in the last few weeks to develop weakness in the upper extrem ities, and his speech was also somehow affected. Speech according to him is becoming a bit more slurred, and has been noticing tingling and weakness in the left foot for a while. Over the last 4 weeks, his symptoms have progressively gotten worse. Patient has never received any form of vaccination in the last few years. He is not even vaccinated for COVID-19 infection. Patient denies any history of major medical illnesses although he did have history of coronary artery disease, dyslipidemia, diabetes, hypertension, and previous PA. Patient has also been complaining of bloody urine, and new onset urinary incontinence. CT of the abdomen and pelvis showed bladder mass, possible possible malignancy patient was seen by urology, and planning cystoscopy on outpatient basis. At any rate the patient was seen yesterday by the neurologist for his neurological symptoms, and he raised the possibility of Guillain-Bergman syndrome. Patient had MRI of the brain and MRI of the cervical spine, his MRI of the brain is unremarkable. However his MRI of the cervical spine questioned non-enhancing lesion in the upper thoracic spine measuring 1.8 cm favoring focal syrinx. However the neurologist reviewed the MRI of the cervical spine, and he felt that this is mostly artifactual. And clearly stated in his note that his symptoms are not related to the syrinx. In addition he recommended starting the patient on IVIG, and he also recommended lumbar spine to be done tomorrow in the meantime his anticoagulation therapy is on hold. Pulmonary-white, patient describes minimal shortness of breath, no cough no wheezing no fever no chills, no hemoptysis and no chest pain. Considering his symptoms and considering the neurologist concern about possible Guillain-Bergman syndrome, patient was stressed to the ICU yesterday, and I have instructed the respirator therapy to perform nif monitoring on this patient. Review of Systems Constitutional: Generalized weakness. Abdomen: Negative. Cardiovascular: Negative. Respiratory: Mild shortness of breath no other pulmonary symptoms Neurologic: As noted in HPI. Musculoskeletal: As noted in HPI related to weakness in the lower and upper extremities. Skin: Negative Psychiatric: Negative Endocrine: Negative. Genitourinary: Hematuria. Past Medical History Past Medical History: Coronary Artery Disease (CAD), Diabetes Mellitus, Hyperlipidemia, Hypertension, Myocardial Infarction (PA) Additional Past Medical History / Comment(s): abdominal hernia Last Myocardial Infarction Date:: 1972 History of Any Multi-Drug Resistant Organisms: None Reported Past Surgical History: Heart Catheterization Additional Past Surgical History / Comment(s): stomach surgery, was born with an upside down stomach Additional Past Anesthesia/Blood Transfusion Reaction / Comment(s): No previous transfusion Past Psychological History: No Psychological Hx Reported Smoking Status: Current every day smoker Past Alcohol Use History: None Reported Past Drug Use History: None Reported - Past Family History Mother Family Medical History: Diabetes Mellitus Medications and Allergies Home Medications Medication Instructions Recorded Confirmed Type Apixaban [Eliquis] 5 mg PO BID 05/26/20 05/12/21 History Atorvastatin Calcium [Lipitor] 80 mg PO HS 05/26/20 05/12/21 History Metoprolol Tartrate [Lopressor] 50 mg PO BID 05/26/20 05/12/21 History INSULIN ASPART (NovoLOG) [NovoLOG 5 unit SQ AC-BID 05/12/21 05/12/21 History (formulary)] Insulin Detemir (Levemir) [Levemir] 15 unit SQ BID 05/12/21 05/12/21 History Sertraline [Zoloft] 50 mg PO DAILY 05/12/21 05/12/21 History Sulfamethox-Tmp 800-160Mg [Bactrim 1 tab PO BID 05/12/21 05/12/21 History DS 800-160 mg] Tamsulosin [Flomax] 0.4 mg PO BID 05/12/21 05/12/21 History traMADol HCl [Ultram] 50 mg PO TID PRN 05/12/21 05/12/21 History Allergies Allergy/AdvReac Type Severity Reaction Status Date / Time cephalexin [From Keflex] Allergy Nausea & Verified 05/12/21 11:20 Vomiting & Diarrhea Physical Exam Vitals: Vital Signs Temp Pulse Pulse Resp BP BP Pulse Ox 05/16/21 11:00 103 H 33 H 136/109 92 L 05/16/21 10:00 112 H 22 118/100 93 L 05/16/21 09:00 126 H 18 125/103 91 L 05/16/21 08:00 98.3 F 134 H 30 H 131/108 05/16/21 07:00 105 H 36 H 138/103 91 L 05/16/21 06:00 104 H 24 146/111 93 L 05/16/21 05:00 112 H 41 H 138/101 94 L 05/16/21 04:00 120 H 18 90 L 05/16/21 03:00 114 H 13 137/101 90 L 05/16/21 02:00 105 H 28 H 149/109 90 L 05/16/21 01:00 103 H 19 150/103 92 L 05/16/21 00:00 98.3 F 118 H 39 H 124/95 94 L 05/15/21 23:00 101 H 26 H 92 L 05/15/21 22:11 107 H 30 H 148/99 05/15/21 22:00 131 H 36 H 121/90 05/15/21 21:30 111 H 40 H 05/15/21 21:00 108 H 29 H 136/106 05/15/21 20:30 37 H 140/98 05/15/21 20:00 98.4 F 101 H 22 132/95 91 L 05/15/21 19:30 20 136/102 05/15/21 19:00 103 H 29 H 107/77 91 L 05/15/21 18:30 94 12 124/105 92 L 05/15/21 18:00 106 H 12 140/127 91 L 05/15/21 17:30 122 H 24 136/105 92 L 05/15/21 17:00 97.9 F 104 H 16 134/104 93 L 05/15/21 16:32 97.9 F 92 21 05/15/21 14:00 97.5 F L 96 137/52 96 Intake and Output 05/15/21 05/16/21 05/16/21 22:59 06:59 14:59 Intake Total 557.208 600 625 Output Total 1390 1170 750 Balance -832.792 -570 -125 Intake: IV 300 Sodium Chloride 0.9% 1, 300 000 ml @ 75 mls/hr IV . [id number] [facility] Rx#:[id number] Intake, IV Titration 557.208 600 325 Amount Heparin Sod,Pork in 0.45% 250 NaCl 25,000 unit In 0.45 % NaCl 1 250ml.bag @ 9 UNITS/KG/HR 10.002 mls/hr IV .Q24H [facility] Rx#: [id number] Immune Globulin ( 64.458 Gammagard) 20 gm In Empty Bag 1 bag @ Per Protocol 42.5 mls/hr IV .Q4H43M [facility] Rx#:[id number] Immune Globulin ( 42.75 Gammagard) 20 gm In Empty Bag 1 bag @ Per Protocol 42.5 mls/hr IV .Q4H43M [facility] Rx#:[id number] Sodium Chloride 0.9% 1, 450 600 75 000 ml @ 75 mls/hr IV . [id number] [facility] Rx#:[id number] Output: Urine 1390 1170 750 Other: Voiding Method Indwelling Catheter Indwelling Catheter Weight 90.2 kg Physical Exam: Revealed a 70-year-old white male in no distress. Head: Atraumatic, normocephalic. HEENT:pupils are equal, round and reacting to light, visual seo are full on confrontation, extraocular muscles are intact with no nystagmus. Face is symmetric, tongue protrudes to the midline. Palatal elevation and sensation normal, hearing and shoulder shrug normal, facial sensation normal. Shoulder shrug normal. Chest: [Clear throughout, no crackles, no rhonchi, no wheezes.] Cardiac Exam: [Normal S1 and S2, no S3 gallop, no murmur.] Abdomen: [Soft, nontender, no megaly, no rebound, no guarding, normal bowel sounds.] Extremities: [No clubbing, no edema, no cyanosis.] Neurological Exam: Deep tendon reflexes completely absent in the arms and legs. Sensory,normal in the upper limbs. Significant weakness noted in the lower extremities left lower extremity seems to be much weaker than the right significant weakness also noted in the upper extremities bilaterally, weakness seems to be equal patient cannot raise his arms, profound weakness of bilateral deltoids Results - Laboratory Findings CBC and BMP: 05/16/21 05:39 05/16/21 05:39 PT/INR, D-dimer PT 11.7 sec (9.0-12.0) 05/15/21 05:18 INR 1.1 (<1.2) 05/15/21 05:18 Abnormal lab findings: Abnormal Labs 05/12/21 05/12/21 05/12/21 11:11 11:11 11:25 WBC 11.5 H Immature Gran # Neutrophils # 9.4 H Monocytes # Eosinophils # ESR APTT Sodium 135 L Chloride Carbon Dioxide 21 L BUN Creatinine 1.47 H Est GFR (CKD-EPI)AfAm Est GFR (CKD-EPI)NonAf BUN/Creatinine Ratio Glucose 267 H POC Glucose (mg/dL) Hemoglobin A1c Magnesium 1.0 L C-Reactive Protein Aldolase Urine Protein 1+ H Urine Glucose (UA) 2+ H Urine Blood Large H Ur Leukocyte Esterase Large H Urine RBC >182 H Urine WBC >182 H Urine WBC Clumps IgA 05/12/21 05/12/21 05/13/21 16:26 21:23 03:09 WBC 10.67 H Immature Gran # Neutrophils # 8.27 H Monocytes # 1.16 H Eosinophils # 0.03 L ESR APTT Sodium Chloride Carbon Dioxide BUN Creatinine Est GFR (CKD-EPI)AfAm Est GFR (CKD-EPI)NonAf BUN/Creatinine Ratio Glucose POC Glucose (mg/dL) 313 H 212 H Hemoglobin A1c Magnesium C-Reactive Protein Aldolase Urine Protein Urine Glucose (UA) Urine Blood Ur Leukocyte Esterase Urine RBC Urine WBC Urine WBC Clumps IgA 05/13/21 05/13/21 05/13/21 03:09 06:50 11:19 WBC Immature Gran # Neutrophils # Monocytes # Eosinophils # ESR APTT Sodium Chloride Carbon Dioxide BUN Creatinine 1.6 H Est GFR (CKD-EPI)AfAm 50.6 L Est GFR (CKD-EPI)NonAf 43.6 L BUN/Creatinine Ratio 11.75 L Glucose 115 H POC Glucose (mg/dL) 143 H 119 H Hemoglobin A1c Magnesium C-Reactive Protein Aldolase Urine Protein Urine Glucose (UA) Urine Blood Ur Leukocyte Esterase Urine RBC Urine WBC Urine WBC Clumps IgA 05/13/21 05/13/21 05/14/21 16:06 20:23 03:33 WBC 10.26 H Immature Gran # 0.06 H Neutrophils # 7.72 H Monocytes # 1.18 H Eosinophils # ESR 21 H APTT Sodium Chloride Carbon Dioxide BUN Creatinine Est GFR (CKD-EPI)AfAm Est GFR (CKD-EPI)NonAf BUN/Creatinine Ratio Glucose POC Glucose (mg/dL) 254 H 260 H Hemoglobin A1c Magnesium C-Reactive Protein Aldolase Urine Protein Urine Glucose (UA) Urine Blood Ur Leukocyte Esterase Urine RBC Urine WBC Urine WBC Clumps IgA 05/14/21 05/14/21 05/14/21 03:33 07:00 14:06 WBC Immature Gran # Neutrophils # Monocytes # Eosinophils # ESR APTT 31.5 H Sodium 133 L Chloride Carbon Dioxide BUN Creatinine Est GFR (CKD-EPI)AfAm 52.9 L Est GFR (CKD-EPI)NonAf 45.7 L BUN/Creatinine Ratio Glucose 145 H POC Glucose (mg/dL) 154 H Hemoglobin A1c Magnesium C-Reactive Protein 3.90 H Aldolase Urine Protein Urine Glucose (UA) Urine Blood Ur Leukocyte Esterase Urine RBC Urine WBC Urine WBC Clumps IgA 05/14/21 05/14/21 05/14/21 14:55 16:40 20:15 WBC Immature Gran # Neutrophils # Monocytes # Eosinophils # ESR APTT Sodium Chloride Carbon Dioxide BUN Creatinine Est GFR (CKD-EPI)AfAm Est GFR (CKD-EPI)NonAf BUN/Creatinine Ratio Glucose POC Glucose (mg/dL) 150 H 202 H Hemoglobin A1c Magnesium C-Reactive Protein Aldolase Urine Protein 1+ H Urine Glucose (UA) Urine Blood Large H Ur Leukocyte Esterase Large H Urine RBC 45 H Urine WBC >182 H Urine WBC Clumps Many H IgA 05/14/21 05/15/21 05/15/21 21:09 05:13 05:18 WBC Immature Gran # 0.07 H Neutrophils # Monocytes # Eosinophils # ESR 28 H APTT 39.5 H Sodium Chloride Carbon Dioxide BUN Creatinine Est GFR (CKD-EPI)AfAm Est GFR (CKD-EPI)NonAf BUN/Creatinine Ratio Glucose POC Glucose (mg/dL) Hemoglobin A1c Magnesium C-Reactive Protein Aldolase Urine Protein Urine Glucose (UA) Urine Blood Ur Leukocyte Esterase Urine RBC Urine WBC Urine WBC Clumps IgA 513.0 H 05/15/21 05/15/21 05/15/21 05:18 05:18 05:18 WBC Immature Gran # Neutrophils # Monocytes # Eosinophils # ESR APTT 51.8 H Sodium Chloride Carbon Dioxide BUN Creatinine Est GFR (CKD-EPI)AfAm Est GFR (CKD-EPI)NonAf BUN/Creatinine Ratio Glucose POC Glucose (mg/dL) Hemoglobin A1c 10.6 H Magnesium C-Reactive Protein Aldolase 7.9 H Urine Protein Urine Glucose (UA) Urine Blood Ur Leukocyte Esterase Urine RBC Urine WBC Urine WBC Clumps IgA 05/15/21 05/15/21 05/15/21 07:05 11:56 16:34 WBC Immature Gran # Neutrophils # Monocytes # Eosinophils # ESR APTT Sodium Chloride Carbon Dioxide BUN Creatinine Est GFR (CKD-EPI)AfAm Est GFR (CKD-EPI)NonAf BUN/Creatinine Ratio Glucose POC Glucose (mg/dL) 247 H 125 H 105 H Hemoglobin A1c Magnesium C-Reactive Protein Aldolase Urine Protein Urine Glucose (UA) Urine Blood Ur Leukocyte Esterase Urine RBC Urine WBC Urine WBC Clumps IgA 05/16/21 05/16/21 05/16/21 05:39 05:39 06:03 WBC Immature Gran # Neutrophils # Monocytes # Eosinophils # ESR APTT 60.7 H Sodium 136 L Chloride 109 H Carbon Dioxide 20 L BUN 34 H Creatinine 1.55 H Est GFR (CKD-EPI)AfAm Est GFR (CKD-EPI)NonAf BUN/Creatinine Ratio Glucose 173 H POC Glucose (mg/dL) 171 H Hemoglobin A1c Magnesium C-Reactive Protein Aldolase Urine Protein Urine Glucose (UA) Urine Blood Ur Leukocyte Esterase Urine RBC Urine WBC Urine WBC Clumps IgA 05/16/21 10:18 WBC Immature Gran # Neutrophils # Monocytes # Eosinophils # ESR APTT Sodium Chloride Carbon Dioxide BUN Creatinine Est GFR (CKD-EPI)AfAm Est GFR (CKD-EPI)NonAf BUN/Creatinine Ratio Glucose POC Glucose (mg/dL) 174 H Hemoglobin A1c Magnesium C-Reactive Protein Aldolase Urine Protein Urine Glucose (UA) Urine Blood Ur Leukocyte Esterase Urine RBC Urine WBC Urine WBC Clumps IgA - Diagnostic Findings Additional studies: MRI of the cervical spine and MRI of the brain was noted, refer to HPI Assessment and Plan Assessment: Impression: Rapid progressive muscle weakness, bilateral, proximal more so than distal, left side more so than right side, associated with slurred speech and some shortness of breath. Exact etiology is being investigated, the neurologist on the case is quite concerned about Guillain-Bergman syndrome, MRI of the brain and cervical spine is nondiagnostic. Lumbar puncture is pending, workup for myositis/myopathy is unremarkable, patient had a normal CPK. Patient is presently on IVIG. Hematuria, possible bladder malignancy or prostate malignancy being investigated by urology. Chronic atrial fibrillation, on Eliquis. [id number] smoking history. Benign essential hypertension. Recommendation: Continue to monitor the patient in the ICU for now. Agree with lumbar puncture. Agree with IVIG. Will monitor NIF every few hours. And we'll monitor pulmonary status closely We'll continue to follow. Time with Patient: Greater than 30
[2021-05-16] MEDS: SODIUM CHLORIDE 0.9% 1,000 ML IV SCH (11:41)
--- NOTE | 2021-05-16 12:02 | XR ---
EXAMINATION TYPE: XR chest 1V portable DATE OF EXAM: 05/16/2021 HISTORY: Shortness of breath. COMPARISON: 05/11/2021 TECHNIQUE: Single view of the chest is submitted. FINDINGS: Demonstrated are scattered senescent parenchymal change. There is no evidence for focal infiltrate. The heart is stable. Hilar and mediastinal structures are within normal limits. Degenerative changes are seen of the dorsal spine. IMPRESSION: 1. Chronic changes without evidence for acute pulmonary disease.
--- NOTE | 2021-05-16 12:27 | P.PN ---
Subjective Progress Note Date: 05/16/21 05/14/2021 This is a pleasant 70 years old male who presents on 05/12 for limb pain and inability to walk. Patient complains from weakness in all 4 extremities but more pronounced in the left leg as he states he barely can lift it off the bed. Also he has decreased sensation when examined his left leg. However he complains also to some degree of weakness from all 4 extremities motor he could not move his both arms above his head however passively I could move them up and patient had good tone in his muscles and he could hold them up above his head but then he will drop down once released Patient denies any abdominal pain today and he states that his hematuria has been cleared today back to yellow urine. Patient also feels generally weak and he might need to go to rehab. Patient hematuria problem is not in the room and he has his urologist seen prior to hospitalization and he is supposed to get stress test with client experience consultant this, the Friday as part of preop evaluation. Also patient states that he was on baby aspirin at home but he ran out of it about one week prior to hospitalization. Also he is on Eliquis Patient told me that he has A. fib and that's why he takes Eliquis at home and that has been taking Eliquis and aspirated one week ago 05/15/2021 Patient seen in follow-up today from previous physician. He is alert and oriented 3, unable to lift his left leg off the bed. He does have more strength in his right leg. Upper extremities are bilateral strength but weak. Continues with a congested cough he is unable to expectorate. Patient was supposed to have a stress test on Friday for cardiology clearance pending a bladder biopsy with urology outpatient. MRI brain today shows no MRI evidence for recent infarct, mild to moderate diffuse cerebral atrophy and moderate chronic small vessel ischemic changessuspicious enhancement noted. MRI cervical spine shows slight scoliotic curvature. This was a suboptimal study without definitive abnormal cord signal or enhancement in the cervical spine. There is central slightly T2 hyperintense nonenhancing lesion in the upper thoracic spine over 1.8 cm segement favoring focal syrinx. Most recent plan per neurology was to complete MRI to rule out stroke with possible lumbar puncture after. Labs today show unremarkable white count, A1c 10.6, total protein 7.1, B12 308, folate 6.30, TSH 3.250. folate and B12 are low normal. Temp 90.5, heart rate 94, blood pressure 141/94, 95% room air. Continues on IV Rocephin, IV heparin drip as eliquis is currently on hold. 05/16/2021 Patient evaluated in follow up in the ICU today. He was transferred to receive IVIG infusions, his muscle strength is improved slightly from yesterday. Plan is for LP puncture tomorrow. He denies any numbness tingling in his upper or lower extremities, continues with left lower extremity weakness. Can wiggle toes, with 2/5 strength with flexion and extension against resistance but unable to lift left lower extremity off the bed. Equal strength upper extremities, he is unable to full extend arms and lift and hold. Labs today blood count normal, sodium 136, chloride 109, CO2 20, BUN 34, creatinine 1.55, blood glucose 170s. Chest xray today chronic changes without evidence for acute pulmonary disease. On IV Rocephin, continues on heparin drip, IVIG, nicotine patch, normal saline infusion. Patient afebrile, heart rate 103 tachycardic, respirations 33, blood pressure 136/109, 92% on 3 L nasal cannula. Rogers catheter in place with significant hematuria. Per RN was slightly confused last night, industrial safety and health specialist at bedside. ROS Constitutional: Denied any fatigue denied any fever. Cardio vascular: denied any chest pain, palpitations Gastrointestinal denied any nausea vomiting Pulmonary: Denied any shortness of breath, reports congested cough unable to expectorate Neurologic: Continues with left lower extremity weakness All inpatient medications were reviewed and appropriate changes in these medications as dictated in the interval history and assessment and plan. PHYSICAL EXAMINATION: GENERAL: The patient is alert and oriented x3, not in any acute distress. Well developed, well nourished. Has industrial safety and health specialist at bedside. HEENT: Pupils are round and equally reacting to light. EOMI. No scleral icterus. No conjunctival pallor. Normocephalic, atraumatic. No pharyngeal erythema. No thyromegaly. CARDIOVASCULAR: S1 and S2 present. No murmurs, rubs, or gallops. PULMONARY: Congested cough, coarse rhonchi noted, improved from yesterday ABDOMEN: Soft, nontender, nondistended, normoactive bowel sounds. No palpable organomegaly. MUSCULOSKELETAL: No joint swelling or deformity. EXTREMITIES: No cyanosis, clubbing, or pedal edema. NEUROLOGICAL: left lower extremity weakness, decreased sensation, bilateral upper extremity weakness SKIN: No rashes. Assessment and Plan Assessment: Left leg weakness and decreased sensation, progressive with involvement of upper extremities, airway, and speech, rule out guillain-barre with neurology following along closely, lumbar puncture scheduled for tomorrow, for now patient in ICU on IVIG infusions. Generalized weakness with Left hip pain and left shoulder pain likely musculo skeletal. X-ray showed no evidence of acute fracture or dislocation. No lytic lesions. Bladder mass versus enlarged prostate. Needs cystoscopy as an outpatient, bladder biopsy scheduled with urology outpatient Bilateral moderate hydronephrosis Hematuria, resolved, rogers catheter insertion now with hematuria Most likely asymptomatic bacterirua with negative urine culture, pt reports weak flow with nocturia, however this is a chronic issue being followed by urology. Hyperglycemia with uncontrolled diabetes type 2 insulin-dependent, with A1C 10.6 Hypomagnesemia, resolved Hypovolemic hyponatremia, improved Acute kidney injury likely prerenal, cr today 1.55 Chronic kidney disease stage III Paroxysmal atrial fibrillation on anticoagulation with Eliquis Hypertension Hyperlipidemia History of IN status post cardiac catheterization. Plan: This is a pleasant 70 years old male who presents with hematuria and generalized weakness and generalized pain. Left leg weakness and decreased sensation. Neurology service Following Patient transferred to ICU for IVIG infusions Lumbar puncture schedule for tomorrow Urology on the case and patient informed to need cystoscopy and possible TURBT as an outpatient and he verbalized understanding and acceptance. The risk of cancer explained. Was scheduled with Dr. Snow on this coming Friday for stress test. Labs and medication were reviewed.. Continue same treatment. Continue with symptomatic treatment. Resume home medication. Monitor lytes and vitals. DVT and GI prophylaxis. Further recommendations as per clinical course of the patient DVT prophylaxis: Eliquis O/H on heparin gtt GI Prophylaxis: Pepcid PT/OT: IP rehab, social security specialist consult Prognosis is guarded Objective - Vital Signs Vital signs: Vital Signs Temp 98.3 F 05/16/21 08:00 Pulse 103 H 05/16/21 11:00 Resp 33 H 05/16/21 11:00 BP 136/109 05/16/21 11:00 Pulse Ox 92 L 05/16/21 11:00 Intake & Output 02/11/2605/16/21 05/16/21 18:59 06:59 18:59 Intake Total 460.275 867.75 625 Output Total 990 1570 750 Balance -529.725 -702.25 -125 Weight 90.2 kg Intake: IV 300 Sodium Chloride 0.9% 1, 300 000 ml @ 75 mls/hr IV . [id number] [facility] Rx#:[id number] Intake, IV Titration 460.275 867.75 325 Amount Heparin Sod,Pork in 0.45% 170.817 250 NaCl 25,000 unit In 0.45 % NaCl 1 250ml.bag @ 9 UNITS/KG/HR 10.002 mls/hr IV .Q24H [facility] Rx#: [id number] Immune Globulin ( 64.458 Gammagard) 20 gm In Empty Bag 1 bag @ Per Protocol 42.5 mls/hr IV .Q4H43M [facility] Rx#:[id number] Immune Globulin ( 42.75 Gammagard) 20 gm In Empty Bag 1 bag @ Per Protocol 42.5 mls/hr IV .Q4H43M [facility] Rx#:[id number] Sodium Chloride 0.9% 1, 225 825 75 000 ml @ 75 mls/hr IV . [id number] [facility] Rx#:[id number] Output: Urine 990 1570 750 Other: Voiding Method Indwelling Catheter Indwelling Catheter - Labs CBC & Chem 7: 05/16/21 05:39 05/16/21 05:39 Labs: Abnormal Lab Results - Last 24 Hours (Table) 05/15/21 05/15/21 05/15/21 Range/Units 05:13 05:18 05:18 ESR 28 H (0-20) mm/Hr APTT (22.0-30.0) sec Sodium (137-145) mmol/L Chloride (98-107) mmol/L Carbon Dioxide (22-30) mmol/L BUN (9-20) mg/dL Creatinine (0.66-1.25) mg/dL Glucose (74-99) mg/dL POC Glucose (mg/dL) (75-99) mg/dL Aldolase 7.9 H (1.2-7.6) U/L IgA 513.0 H (60.0-350.0) mg/dL 05/15/21 05/16/2105/16/22 Range/Units 16:34 05:39 05:39 ESR (0-20) mm/Hr APTT 60.7 H (22.0-30.0) sec Sodium 136 L (137-145) mmol/L Chloride 109 H (98-107) mmol/L Carbon Dioxide 20 L (22-30) mmol/L BUN 34 H (9-20) mg/dL Creatinine 1.55 H (0.66-1.25) mg/dL Glucose 173 H (74-99) mg/dL POC Glucose (mg/dL) 105 H (75-99) mg/dL Aldolase (1.2-7.6) U/L IgA (60.0-350.0) mg/dL 05/16/21 05/16/21 05/16/21 Range/Units 06:03 10:18 11:27 ESR (0-20) mm/Hr APTT (22.0-30.0) sec Sodium (137-145) mmol/L Chloride (98-107) mmol/L Carbon Dioxide (22-30) mmol/L BUN (9-20) mg/dL Creatinine (0.66-1.25) mg/dL Glucose (74-99) mg/dL POC Glucose (mg/dL) 171 H 174 H 141 H (75-99) mg/dL Aldolase (1.2-7.6) U/L IgA (60.0-350.0) mg/dL Microbiology - Last 24 Hours (Table) 05/12/21 14:15 Blood Culture - Preliminary Blood No Growth after 72 hours 05/12/21 14:00 Blood Culture - Preliminary Blood No Growth after 72 hours Assessment and Plan Time with Patient: Greater than 30
[2021-05-16 13:27] LABS: Albumin 3.28 g/dL (3.80-4.90); Gamma Globulin 1.27 g/dL (0.70-1.50)
[2021-05-16 17:05] LABS: Glucose,Whole Blood 381 mg/dL (75-99)
[2021-05-16] MEDS ORDERED: SODIUM CHLORIDE 0.65% NASAL SPRAY 44 ML BTL NASAL PRN (17:40)
[2021-05-16 20:00] LABS: Glucose,Whole Blood 125 mg/dL (75-99)
[2021-05-16] MEDS: ATORVASTATIN 80 MG TAB PO SCH (20:13)
[2021-05-16] MEDS ORDERED: FUROSEMIDE 10 MG/ML 4 ML VIAL IV STA (23:15)
--- NOTE | 2021-05-16 23:16 | P.PN ---
Subjective Progress Note Date: 05/16/21 Patient was seen for a follow-up. Patient is now in the ICU. Patient states his breathing is getting better. Denies any new neurological symptoms. Patient has received IVIG yesterday, and receiving second dose today. He continues to have numbness in the fingers and the hands up to the mid palm bilaterally. Also has numbness in the legs from waist down. He still has very weak cough. Denies any side effects of IVIG. Patient is having mild hematuria. He is catheterized. Objective - Vital Signs Vital signs: Vital Signs Temp 98.3 F 05/16/21 08:00 Pulse 103 H 05/16/21 11:00 Resp 33 H 05/16/21 11:00 BP 136/109 05/16/21 11:00 Pulse Ox 92 L 05/16/21 11:00 Intake & Output 05/15/21 05/16/21 05/16/21 18:59 06:59 18:59 Intake Total 460.275 867.75 625 Output Total 990 1570 750 Balance -529.725 -702.25 -125 Weight 90.2 kg Intake: IV 300 Sodium Chloride 0.9% 1, 300 000 ml @ 75 mls/hr IV . [id number] [facility] Rx#:[id number] Intake, IV Titration 460.275 867.75 325 Amount Heparin Sod,Pork in 0.45% 170.817 250 NaCl 25,000 unit In 0.45 % NaCl 1 250ml.bag @ 9 UNITS/KG/HR 10.002 mls/hr IV .Q24H [facility] Rx#: [id number] Immune Globulin ( 64.458 Gammagard) 20 gm In Empty Bag 1 bag @ Per Protocol 42.5 mls/hr IV .Q4H43M [facility] Rx#:[id number] Immune Globulin ( 42.75 Gammagard) 20 gm In Empty Bag 1 bag @ Per Protocol 42.5 mls/hr IV .Q4H43M [facility] Rx#:[id number] Sodium Chloride 0.9% 1, 225 825 75 000 ml @ 75 mls/hr IV . [id number] [facility] Rx#:[id number] Output: Urine 990 1570 750 Other: Voiding Method Indwelling Catheter Indwelling Catheter - Exam patient is laying in the bed. Appears slightly short of breath, however better than yesterday. Speech and language functions are normal. Cranial nerves are normal. 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 Hip flexion 2/0, knee extension 5-/0, ankle dorsiflexion 5/1-2. Patient is diffusely areflexic. Sensations are decreased distally in the hands, and also in the lower e xtremities. - Labs CBC & Chem 7: 05/16/21 05:39 05/16/21 05:39 Labs: Abnormal Lab Results - Last 24 Hours (Table) 05/15/21 05/15/21 05/15/21 Range/Units 05:13 05:18 05:18 ESR 28 H (0-20) mm/Hr APTT (22.0-30.0) sec Sodium (137-145) mmol/L Chloride (98-107) mmol/L Carbon Dioxide (22-30) mmol/L BUN (9-20) mg/dL Creatinine (0.66-1.25) mg/dL Glucose (74-99) mg/dL POC Glucose (mg/dL) (75-99) mg/dL Aldolase 7.9 H (1.2-7.6) U/L IgA 513.0 H (60.0-350.0) mg/dL 05/15/21 05/15/21 05/16/21 Range/Units 11:56 16:34 05:39 ESR (0-20) mm/Hr APTT (22.0-30.0) sec Sodium 136 L (137-145) mmol/L Chloride 109 H (98-107) mmol/L Carbon Dioxide 20 L (22-30) mmol/L BUN 34 H (9-20) mg/dL Creatinine 1.55 H (0.66-1.25) mg/dL Glucose 173 H (74-99) mg/dL POC Glucose (mg/dL) 125 H 105 H (75-99) mg/dL Aldolase (1.2-7.6) U/L IgA (60.0-350.0) mg/dL 05/16/21 05/16/21 05/16/21 Range/Units 05:39 06:03 10:18 ESR (0-20) mm/Hr APTT 60.7 H (22.0-30.0) sec Sodium (137-145) mmol/L Chloride (98-107) mmol/L Carbon Dioxide (22-30) mmol/L BUN (9-20) mg/dL Creatinine (0.66-1.25) mg/dL Glucose (74-99) mg/dL POC Glucose (mg/dL) 171 H 174 H (75-99) mg/dL Aldolase (1.2-7.6) U/L IgA (60.0-350.0) mg/dL Microbiology - Last 24 Hours (Table) 05/12/21 14:15 Blood Culture - Preliminary Blood No Growth after 72 hours 05/12/21 14:00 Blood Culture - Preliminary Blood No Growth after 72 hours Assessment and Plan Assessment: * 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 Patient has presented with rapidly progressive proximal and distal weakness of upper and lower extremities, diffuse areflexia, and sensory loss distally in the hands and in bilateral legs. Patient is noticing difficulty with breathing, and very weak cough, probably indicating involvement of the respiratory muscles. * Acute UTI. * Diabetes, poorly controlled * Mild to moderate renal insufficiency. * Hypertension * Atrial fibrillation, currently on Eliquis. * Tobacco use 1 pack per day for 30 years. Plan: * Patient has received IVIG first dose yesterday, and today he is receiving the second dose. Patient's breathing appears slightly better. His examination is also better as above. * Patient's CBC is normal, PTT 60.7, BUN 34, creatinine 1.55. Needs to closely monitor renal functions. We will check daily comprehensive metabolic panel. * MRI of brain revealed no acute stroke. Mild to moderate diffuse cerebral atrophy and moderate chronic small vessel ischemic changes. No suspicious enhancement noted. I personally reviewed MRI of the brain and agree with the findings. * MRI of the cervical spine with and without contrast was suboptimal study without definitive abnormal cord signal or enhancement in the cervical spine. There is central slightly T2 hyperintense nonenhancing lesion in the upper tho racic spine over 1.8 cm segment favoring a focal syrinx. I personally reviewed MRI of the cervical spine. The lesion mentioned appeared artifactual in nature. Again, this lesion would not explain any symptoms in the upper extremities for sure. * Patient to receive lumbar puncture in the morning by anesthesia. * Recommend patient to be transferred to ICU for close monitoring, as his respiration seems to be affected. Patient's NIF is -50, vital capacity 0.75, which is very low. * Continue IVIG 0.4 g/kg per day for total of 5 days. * Eliquis on hold since 05/14/2021. Patient on heparin IV for bridging until lumbar puncture can be completed. * Blood tests including TA negative B12 308, folic acid 6.3, TSH 3.25, hemoglobin A1c 10.6, ESR 28. IgG 1398, IgA is 513/350, IgM 73.9 normal. (No IgA deficiency). Immunofixation electrophoresis negative for monoclonal protein. Aldolase mildly elevated 7.9/7.6. Serum protein electrophoresis als o negative for monoclonal gammopathy. * Patient started on folic acid 1 mg daily and vitamin B12 1000 g IM daily for 3 days. * Lyme titer, MMA, B1, B6 still pending. * Patient currently on ceftriaxone for UTI. * Telemetry monitoring to rule out any arrhythmia. * Patient on heparin IV for DVT prophylaxis.
[2021-05-16] MEDS: DEXMEDETOMIDINE/0.9% NACL(PMX) 400 MCG in EMPTY BAG 1 BAG IV SCH (23:26)
--- NOTE | 2021-05-16 23:34 | XR ---
EXAMINATION TYPE: XR chest 1V DATE OF EXAM: 05/16/2021 COMPARISON: Today HISTORY: Short of breath TECHNIQUE: FINDINGS: Heart appears enlarged. There is no gross heart failure. There is blunting of the costophre travis angles. There are chest leads. IMPRESSION: There are bilateral pleural effusions which appear the same or increased compared to exam 12 hours ago. No obvious heart failure.
[2021-05-17] MEDS: SODIUM CHLORIDE 0.9% 1,000 ML IV SCH ×4 (00:58→20:27)
[2021-05-17 06:24] LABS: HCT 43.4 % (39.0-53.0); HGB 14.1 gm/dL (13.0-17.5); MCHC 32.5 g/dL (31.0-37.0); MCV 95.5 fL (80.0-100.0); Mean Platelet Volume 8.2; Platelet Count 309 k/uL (150-450); RBC 4.55 m/uL (4.30-5.90); RDW 13.4 % (11.5-15.5); WBC 8.6 k/uL (3.8-10.6)
[2021-05-17 06:46] LABS: Albumin 3.5 g/dL (3.5-5.0); Calcium 9.5 mg/dL (8.4-10.2); Magnesium 1.4 mg/dL (1.6-2.3); Potassium 4.8 mmol/L (3.5-5.1); Total Bilirubin 0.9 mg/dL (0.2-1.3); Total Protein 8.4 g/dL (6.3-8.2)
[2021-05-17 06:51] LABS: Glucose,Whole Blood 169 mg/dL (75-99)
[2021-05-17] MEDS: INSULIN ASPART (NovoLOG) 100 UNIT/ML VIAL SQ SCH ×5 (06:54→21:04)
--- NOTE | 2021-05-17 07:56 | XR ---
EXAMINATION TYPE: XR chest 1V DATE OF EXAM: 05/17/2021 COMPARISON: 05/16/2021 HISTORY: 70-year-old male respiratory distress TECHNIQUE: Single frontal view of the chest is obtained. FINDINGS: Small bilateral pleural effusions with patchy bibasilar opacities. Upper lungs are clear. Heart is up per limits of normal in size. IMPRESSION: Similar small bilateral pleural effusions with bibasilar atelectasis and/or consolidation.
[2021-05-17] MEDS ORDERED: Magnesium Replacement Protocol 1 EACH MISC MISCELLANE PRN (08:22)
[2021-05-17 08:45] LABS: Methylmalonic Acid 0.16 umol/L (<0.40)
[2021-05-17] MEDS ORDERED: IMMUNE GLOBULIN (GAMMAGARD) 20 GM in EMPTY BAG 1 BAG IV ONE (09:00)
[2021-05-17] MEDS: MAGNESIUM SULFATE-D5W PMX 1 GM in DEXTROSE/WATER 1 100ML.BAG IVPB SCH ×3 (09:40→14:25)
[2021-05-17] MEDS ORDERED: NOREPINEPHRIN 4 MG-0.9% NS PMX 4 MG/250 ML ML IV ONE (09:41)
[2021-05-17] MEDS: NOREPINEPHRINE 4 MG in SODIUM CHLORIDE 0.9% 250 ML IV SCH ×3 (09:45→14:22)
[2021-05-17] MEDS ORDERED: propofoL 100 ML IV ONE (09:46)
--- NOTE | 2021-05-17 10:11 | XR ---
EXAMINATION TYPE: XR chest 1V portable DATE OF EXAM: 05/17/2021 Comparison: Earlier today Clinical History: 70 year-old male tube placement Findings: ET tube satisfactory. Slight rightward patient rotation. Heart remains borderline in size. Continued small bilateral pleural effusions with bibasilar opacities. Upper lungs are relatively clear. Impression: 1. Satisfactory ET tube. 2. Similar borderline heart size and continued small pleural effusions with bibasilar atelectasis and /or consolidation.
--- NOTE | 2021-05-17 10:12 | XR ---
EXAMINATION TYPE: XR chest 1V portable, semiupright DATE OF EXAM: 05/17/2021 Comparison: Earlier today Clinical History: 70-year-old male gastric tube placement Findings: ET tube satisfactory. NG tube satisfactory. Slight rightward patient rotation. Heart remains borderli ne in size. Continued small bilateral pleural effusions with bibasilar opacities. Left infrahilar opa city somewhat more pronounced. Upper lungs are relatively clear. Impression: 1. Satisfactory ET and NG tubes. 2. Semiupright exam. Similar borderline heart size and continued small pleural effusions with bibasi lar atelectasis and/or consolidation. Left infrahilar opacity is somewhat more pronounced. Attention on follow-up.
[2021-05-17] MEDS ORDERED: CISATRACURIUM 2 MG/ML 5 ML VIAL IV ONE (10:31)
[2021-05-17] MEDS ORDERED: SODIUM CHLORIDE 0.9% 1,000 ML IV ONE (10:32)
[2021-05-17 11:26] LABS: Glucose,Whole Blood 169 mg/dL (75-99)
[2021-05-17] MEDS: SODIUM CHLORIDE 0.9% 1,000 ML IV ONE ×3 (11:30→18:53)
[2021-05-17 11:33] LABS: ABG Base Excess -5.9 mmol/L; ABG HCO3 21 mmol/L (21-25); ABG Oxygen Saturation 98.5 % (94-97); ABG PCO2 47 mmHg (35-45); ABG PH 7.26 (7.35-7.45); ABG PO2 174 mmHg (83-108); ABG TCO2 23 mmol/L (19-24)
--- NOTE | 2021-05-17 11:33 | OP ---
OPERATIVE REPORT OPERATIVE REPORT: Placement of left subclavian triple-lumen catheter. This was done in an emergent situation; patient was hypotensive and needed central IV access. PREOPERATIVE DIAGNOSIS: Acute respiratory failure secondary to suspected Guillain-Nemacolin syndrome. POSTOPERATIVE DIAGNOSIS: Acute respiratory failure secondary to suspected Guillain-Nemacolin syndrome. ANESTHESIA USED: Two mL of 1% lidocaine. PROCEDURE DESCRIPTION: The patient was placed in a supine position. The area of the left subclavian region was prepared in a sterile fashion. Drapes were applied. The area below the left clavicle was locally anesthetized with lidocaine. Then using the inferior approach, the left subclavian vein was easily cannulated. A guidewire was placed. The area of the guidewire was dilated. Then a triple-lumen catheter was inserted over the guidewire, and the guidewire was removed. Good blood flow was noted in the 3 different ports of the triple-lumen catheter. No evidence of any immediate complications. Chest x-ray was ordered postoperatively and is pending at the time of this dictation. MMODL / IJN: [id number] /
--- NOTE | 2021-05-17 11:33 | OP ---
OPERATIVE REPORT OPERATIVE REPORT: Placement of right brachial arterial line. PREOPERATIVE DIAGNOSIS: Acute hypoxic respiratory failure. POSTOPERATIVE DIAGNOSIS: Acute hypoxic respiratory failure. ANESTHESIA USED: None deployed. PROCEDURE DESCRIPTION: The patient was placed in supine position. Right brachial region was prepared in a sterile fashion and drapes were applied. The right brachial artery was palpated, easily cannulated, and a guidewire was placed. A Cook's catheter was inserted over the guidewire, and the guidewire was removed. Good blood flow and good waveform were noted. No evidence of complications. Line was secured using 3.0 silk sutures. MMODL / IJN: [id number] /
[2021-05-17 11:35] LABS: Allen Test Performed? no
--- NOTE | 2021-05-17 11:39 | P.PN ---
Subjective Progress Note Date: 05/17/21 Principal diagnosis: Possible Guillain-Bergman syndrome, acute hypoxic respiratory failure This is a 70-year-old white male admitted on 05/12/2021, patient was admitted mostly with a chief complaint of bilateral lower extremities weakness left more so than right, and this has been going on for the last 4 weeks. His symptoms have progressed in the last few weeks to develop weakness in the upper extremities, and his speech was also somehow affected. Speech according to him is becoming a bit more slurred, and has been noticing tingling and weakness in the left foot for a while. Over the last 4 weeks, his symptoms have progressively gotten worse. Patient has never received any form of vaccination in the last few years. He is not even vaccinated for COVID-19 infection. 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 Patient has also been complaining of bloody urine, and new onset urinary incontinence. CT of the abdomen and pelvis showed bladder mass, possible possible malignancy patient was seen by urology, and planning cystoscopy on outpatient basis. At any rate the patient was seen yesterday by the neurologist for his neurological symptoms, and he raised the possibility of Guillain-Bergman syndrome. Patient had MRI of the brain and MRI of the cervical spine, his MRI of the brain is unremarkable. However his MRI of the cervical spine questioned non-enhancing lesion in the upper thoracic spine measuring 1.8 cm favoring focal syrinx. However the neurologist reviewed the MRI of the cervical spine, and he felt that this is mostly artifactual. And clearly stated in his note that his symptoms are not related to the syrinx. In addition he recommended starting the patient on IVIG, and he also recommended lumbar spine to be done tomorrow in the meantime his anticoagulation therapy is on hold. Pulmonary-white, patient describes minimal shortness of breath, no cough no wheezing no fever no chills, no hemoptysis and no chest pain. Considering his symptoms and considering the neurologist concern about possible Guillain-Bergman syndrome, patient was stressed to the ICU yesterday, and I have instructed the respirator therapy to perform nif monitoring on this patient. Patient was reevaluated today on 05/17/2021, ration had a deteriorating clinical course last night, patient developed a picture of hypoxic respiratory failure with worsening pulmonary status last night. I was notified about the patient, he was extremely congested, he had a very weak cough, and his saturations were down in the 70s even on a nonrebreather mask. Recommended immediate intubation of the patient, however I was told that the patient was DO NOT RESUSCITATE CODE STATUS. Then I recommended at least placing the patient on BiPAP, and placed on Precedex for extreme agitation. Apparently overnight the CODE STATUS was changed to full code, I was not notified about the change in the CODE STATUS. I saw this patient this morning today, his respiratory status he is deteriorating, and does not seem to be doing well with BiPAP. Then I recommended again i mmediate intubation. Patient was intubated, placed on mechanical ventilation, he is now on assist control rate of 30 tidal volume 400 FiO2 on the percent and PEEP of 8. Patient was also noted to be hypotensive, on norepinephrine, and he is on 0.15 mcg/kg/m. Placed on propofol at 75 mcg/kg/m, fluid boluses were given. Went ahead and placed a left subclavian central line, and right brachial arterial line was also placed. Anesthesia is to perform lumbar puncture on this patient sometime today. Chest x-ray post intubation and post left subclavian central line showed adequate placement of the lines and endotracheal tube, significant bibasilar atelectasis and possibly a small left pleural effusion noted. ABG is pending. Objective - Vital Signs Vital signs: Vital Signs Temp 97.9 F 05/17/21 08:00 Pulse 78 05/17/21 11:00 Resp 30 H 05/17/21 11:00 BP 108/72 05/17/21 11:00 Pulse Ox 96 05/17/21 11:00 Intake & Output 05/16/21 05/17/21 05/17/21 18:59 06:59 18:59 Intake Total 1850 4209.723 5374.712 Output Total 1490 2655 340 Balance 360 -1620.699 953.712 Weight 90.2 kg 88.9 kg Intake: IV 381 812 5985 Sodium Chloride 0.9% 1, 075 514 4185 000 ml @ 100 mls/hr IV . Q10H [facility] Rx#:[id number] Intake, IV Titration 325 244.301 43.712 Amount Dexmedetomidine/0.9% NaCl 17.138 27.624 (Pmx) 400 mcg In Empty Bag 1 bag @ 0.2 MCG/KG/HR 4.51 mls/hr IV .[id number] [facility] Rx#:[id number] Heparin Sod,Pork in 0.45% 250 227.163 NaCl 25,000 unit In 0.45 % NaCl 1 250ml.bag @ 9 UNITS/KG/HR 10.002 mls/hr IV .Q24H [facility] Rx#: [id number] Norepinephrine 4 mg In 16.088 Sodium Chloride 0.9% 250 ml @ 0.05 MCG/KG/MIN 16. 935 mls/hr IV .Q15H [facility] Rx#:[id number] Sodium Chloride 0.9% 1, 75 000 ml @ 100 mls/hr IV . Q10H [facility] Rx#:[id number] Oral 700 Output: Urine 1490 2655 340 Other: Voiding Method Indwelling Catheter Indwelling Catheter ABP, PAP, CO, CI - Last Documented Arterial Blood Pressure 114/66 - Exam Physical Exam revealed a 70-year-old white male intubated, mechanically ventilated. Sedated but not paralyzed. Head: Atraumatic, normocephalic. Endotracheal tube and orogastric tube are intact. HEENT:[Neck is supple.] [No neck masses.] [No thyromegaly.] [No JVD.] Chest: [Symmetrical chest expansion, crackles at the bases no rhonchi no wheezes Cardiac Exam: [Normal S1 and S2, no S3 gallop, no murmur.] Abdomen: [Soft, nontender, no megaly, no rebound, no guarding, normal bowel sounds.] Extremities: [No clubbing, no edema, no cyanosis.] Neurological Exam: Cannot assess, patient is sedated, intubated. Psychiatric: Cannot assess patient is sedated and intubated. Skin: No rashes. - Labs CBC & Chem 7: 05/17/21 06:01 05/17/21 06:01 Labs: Abnormal Lab Results - Last 24 Hours (Table) 05/15/21 05/16/21 05/16/21 Range/Units 05:18 11:27 17:04 APTT (22.0-30.0) sec Chloride (98-107) mmol/L Carbon Dioxide (22-30) mmol/L BUN (9-20) mg/dL Creatinine (0.66-1.25) mg/dL Glucose (74-99) mg/dL POC Glucose (mg/dL) 141 H 381 H (75-99) mg/dL Magnesium (1.6-2.3) mg/dL Total Protein (6.3-8.2) g/dL Albumin (PEP) 3.28 L (3.80-4.90) g/dL Nglmd-8-Cwgplfrbh 0.41 H (0.10-0.40) g/dL Fiwuj-7-Njmfpcpuo 1.16 H (0.60-1.00) g/dL 05/16/21 05/17/21 05/17/21 Range/Units 19:58 06:01 06:01 APTT 40.5 H (22.0-30.0) sec Chloride 108 H (98-107) mmol/L Carbon Dioxide 21 L (22-30) mmol/L BUN 40 H (9-20) mg/dL Creatinine 1.40 H (0.66-1.25) mg/dL Glucose 176 H (74-99) mg/dL POC Glucose (mg/dL) 125 H (75-99) mg/dL Magnesium 1.4 L (1.6-2.3) mg/dL Total Protein 8.4 H (6.3-8.2) g/dL Albumin (PEP) (3.80-4.90) g/dL Hmgnu-8-Tzucpcpmz (0.10-0.40) g/dL Pkncy-0-Bhnldliea (0.60-1.00) g/dL 05/17/21 05/17/21 Range/Units 06:49 11:24 APTT (22.0-30.0) sec Chloride (98-107) mmol/L Carbon Dioxide (22-30) mmol/L BUN (9-20) mg/dL Creatinine (0.66-1.25) mg/dL Glucose (74-99) mg/dL POC Glucose (mg/dL) 169 H 169 H (75-99) mg/dL Magnesium (1.6-2.3) mg/dL Total Protein (6.3-8.2) g/dL Albumin (PEP) (3.80-4.90) g/dL Itxpb-2-Bqzrergwy (0.10-0.40) g/dL Gbfgg-5-Jrdmnorei (0.60-1.00) g/dL Microbiology - Last 24 Hours (Table) 05/12/21 14:00 Blood Culture - Preliminary Blood No Growth after 96 hours 05/12/21 14:15 Blood Culture - Preliminary Blood No Growth after 96 hours 05/14/21 14:55 Urine Culture - Final Urine,Clean Catch Assessment and Plan Assessment: Impression: 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 Rapid progressive muscle weakness, bilateral, proximal more so than distal, left side more so than right side, associated with slurred speech and some shortness of breath. Exact etiology is being investigated, the neurologist on the case is quite concerned about Guillain-Bergman syndrome, MRI of the brain and cervical spine is nondiagnostic. Lumbar puncture is pending, workup for myositis/myopat hy is unremarkable, patient had a normal CPK. Patient is presently on IVIG. Hematuria, possible bladder malignancy or prostate malignancy being investigated by urology. Chronic atrial fibrillation, on Eliquis. [id number] smoking history. Benign essential hypertension. Recommendation: Patient was intubated and mechanically ventilated on 05/17/2021, continue ventilatory support, adjust ventilator settings shortly after ABG. Continue hemodynamic support, patient is presently on norepinephrine at 0.25 mcg/kg/m Agree with lumbar puncture to be done shortly today. His heparin has been on hold. Agree with IVIG to continue. GI and DVT prophylaxis. Enteral feeding/nutritional support. Prognosis is relatively guarded. We will continue to follow. We'll continue to follow. Patient is critically ill, critical time is over 30 minutes, not including the time spent on procedures. Time with Patient: Greater than 30
--- NOTE | 2021-05-17 11:41 | XR ---
EXAMINATION TYPE: XR chest 1V portable DATE OF EXAM: 05/17/2021 Comparison: Earlier today Clinical History: 70-year-old male central line placement Findings: Left CVC tip at the mid to lower SVC. Heart is enlarged. NG tube and ET tube are satisfactory. Given supine imaging, suspect small bilateral pleural effusions with bibasilar opacities. Left hilar promin ence may relate to pulmonary arterial hypertension. Impression: 1. Left CVC tip at the mid to lower SVC. 2. Satisfactory ET and NG tubes. 3. Mild cardiomegaly and continued small bilateral pleural effusions and bibasilar opacities. 4. Similar left hilar prominence.
--- NOTE | 2021-05-17 12:03 | P.PCN ---
Date of Procedure: 05/17/21 Procedure(s) Performed: Lumbar puncture Description of Procedure: Procedure: Lumbar Puncture . Preoperative Diagnoses: Guillain-Bergman Postoperative Diagnosis: E Shelli Anesthesia: Patient was sedated by the ICU team, intubated. Complications: none. Description of the procedure: Patient was seen in the ICU. Heparin drip was turned off at 5 AM. Procedure was performed that 11:39 AM - 11:49. The patient had been intubated and sedated by the ICU team earlier this morning. The patient was confirmed with the ICU nurse. The patient was turned in the left lateral decubitus position. The back was cleansed with chlorhexidine solution and allowed to dry. Iliac crest was palpated. A 20-gauge needle was placed at the L3-L4 level. 2 attempts were made. On the second attempt the lumbar spinal fluid was noted to be free flowing. Opening pressure was noted to be elevated at 30 cm. The fluid appeared to be clear. A total of 6 mL of fluid were collected and sent off to pathology and cytology. The closing pressure was noted to be 26. The needle was removed intact. Band-Aid was placed. The patient was placed back in the supine position. rFeddy Galvin MD.
[2021-05-17] MEDS: INSULIN DETEMIR (LEVEMIR) 100 UNIT/ML SYR SQ SCH ×2 (12:28→21:08)
[2021-05-17] MEDS: METOPROLOL TARTRATE 50 MG TAB PO SCH ×2 (12:31→21:03)
[2021-05-17] MEDS: CYANOCOBALAMIN 1,000 MCG/ML 1 ML VIAL IM SCH (12:56)
[2021-05-17] MEDS: NICOTINE 14MG/24HR PATCH TRANSDERM SCH (12:57)
[2021-05-17] MEDS: TAMSULOSIN 0.4 MG CAP.ER.24H PO SCH ×2 (12:57→21:00)
[2021-05-17] MEDS: FOLIC ACID 1 MG TAB PO SCH (12:57)
[2021-05-17] MEDS: SERTRALINE 50 MG TAB PO SCH (12:57)
[2021-05-17] MEDS: FAMOTIDINE 20 MG TAB PO SCH (12:57)
--- NOTE | 2021-05-17 13:53 | P.PN ---
Subjective Progress Note Date: 05/17/21 05/14/2021 This is a pleasant 70 years old male who presents on 05/12 for limb pain and inability to walk. Patient complains from weakness in all 4 extremities but more pronounced in the left leg as he states he barely can lift it off the bed. Also he has decreased sensation when examined his left leg. However he complains also to some degree of weakness from all 4 extremities motor he could not move his both arms above his head however passively I could move them up and patient had good tone in his muscles and he could hold them up above his head but then he will drop down once released Patient denies any abdominal pain today and he states that his hematuria has been cleared today back to yellow urine. Patient also feels generally weak and he might need to go to rehab. Patient hematuria problem is not in the room and he has his urologist seen prior to hospitalization and he is supposed to get stress test with valve steamer this, the Friday as part of preop evaluation. Also patient states that he was on baby aspirin at home but he ran out of it about one week prior to hospitalization. Also he is on Eliquis Patient told me that he has A. fib and that's why he takes Eliquis at home and that has been taking Eliquis and aspirated one week ago 05/15/2021 Patient seen in follow-up today from previous physician. He is alert and oriented 3, unable to lift his left leg off the bed. He does have more strength in his right leg. Upper extremities are bilateral strength but weak. Continues with a congested cough he is unable to expectorate. Patient was supposed to have a stress test on Friday for cardiology clearance pending a bladder biopsy with urology outpatient. MRI brain today shows no MRI evidence for recent infarct, mild to moderate diffuse cerebral atrophy and moderate chronic small vessel ischemic changessuspicious enhancement noted. MRI cervical spine shows slight scoliotic curvature. This was a suboptimal study without definitive abnormal cord signal or enhancement in the cervical spine. There is central slightly T2 hyperintense nonenhancing lesion in the upper thoracic spine over 1.8 cm segement favoring focal syrinx. Most recent plan per neurology was to complete MRI to rule out stroke with possible lumbar puncture after. Labs today show unremarkable white count, A1c 10.6, total protein 7.1, B12 308, folate 6.30, TSH 3.250. folate and B12 are low normal. Temp 90.5, heart rate 94, blood pressure 141/94, 95% room air. Continues on IV Rocephin, IV heparin drip as eliqukaterine is currently on hold. 05/16/2021 Patient evaluated in follow up in the ICU today. He was transferred to receive IVIG infusions, his muscle strength is improved slightly from yesterday. Plan is for LP puncture tomorrow. He denies any numbness tingling in his upper or lower extremities, continues with left lower extremity weakness. Can wiggle toes, with 2/5 strength with flexion and extension against resistance but unable to lift left lower extremity off the bed. Equal strength upper extremities, he is unable to full extend arms and lift and hold. Labs today blood count normal, sodium 136, chloride 109, CO2 20, BUN 34, creatinine 1.55, blood glucose 170s. Chest xray today chronic changes without evidence for acute pulmonary disease. On IV Rocephin, continues on heparin drip, IVIG, nicotine patch, normal saline infusion. Patient afebrile, heart rate 103 tachycardic, respirations 33, blood pressure 136/109, 92% on 3 L nasal cannula. Rogers catheter in place with significant hematuria. Per RN was slightly confused last night, drug safety scientist at bedside. 05/17/2021 Patient evaluated today in the ICU now intubated and sedated, with an fio2 of 55%. Patient admitted as a do not resuscitate, however through ongoing discussions with patient and family he was understanding day prior to intubation that if this is guillain barre that intubation may be necessary for recovery and may be temporary. 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 Throughout the evening patient experienced respiratory distress and was placed on the BiPAP, at that time he was given precedex for sedation and discussion with the family was had and patient was changed to full code if intubation were necessary. Patient was intubated around 10 am today. Discussed code status with patients daughter, Trisha on the phone who would like patient to remain a full code including CPR and use of medications if necessary while patient undergoes IVIG infusions and while lumbar puncture pathology and cytology are being finalized. Once all diagnostics are available and patient has a diagnosis/prognosis than patients family will revisit code status and make a determination to continue with full code status or not. Family and nurse updated on current plan of care. Patient underwent lumbar puncture today, magnesium supplemented today. Chest x-ray shows mild cardiomegaly and continued small bilateral pleural effusions and bibasilar opacities. With similar left hilar prominence. Continues on IV rocephin, precedex, heparin gtt, IVIG infusions, lovephed. Blood pressure 93/61, heart rate 87, respirations 30, blood pressure 94/65, 92-96% oxygen saturation. 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 Labs today; white count 10.6, hemoglobin 14.1, sodium 137, potassium 4.8, chloride 108, CO2 21, BUN 40, creatinine 1.40, blood glucose in the 160s, calcium 9.5, magnesium 1.4. Review of Systems Unable to complete a full review of systems as patient is intubated and sedated All inpatient medications were reviewed and appropriate changes in these medications as dictated in the interval history and assessment and plan. PHYSICAL EXAMINATION: GENERAL: Patient intubated and sedated with Fi02 of 55%, Well developed, well nourished. HEENT: Pupils are round and equally reacting to light. EOMI. No scleral icterus. No conjunctival pallor. Normocephalic, atraumatic. No pharyngeal erythema. No thyromegaly. CARDIOVASCULAR: S1 and S2 present. No murmurs, rubs, or gallops. PULMONARY: Coarse scattered rhonchi throughout ABDOMEN: Soft, nontender, nondistended, normoactive bowel sounds. No palpable organomegaly. MUSCULOSKELETAL: No joint swelling or deformity. EXTREMITIES: No cyanosis, clubbing, or pedal edema. NEUROLOGICAL: Patient sedated SKIN: No rashes. 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 Patient presents to hospital with left leg weakness and decreased sensation, progressive with involvement of upper extremities, airway, and speech, rule out guillain-barre with neurology following along closely, Lumbar puncture completed today 05/27/2021, on IVIG infusions, monitored in the ICU. -Generalized weakness with Left hip pain and left shoulder pain likely musculoskeletal. X-ray showed no evidence of acute fracture or dislocation. No lytic lesions. -Bladder mass versus enlarged prostate. -Bilateral moderate hydronephrosis -Hematuria, resolved, rogers catheter insertion now with hematuria which today has improved -Most likely asymptomatic bacterirua with negative urine culture, pt reports weak flow with nocturia, however this is a chronic issue being followed by urology. -Hyperglycemia with uncontrolled diabetes type 2 insulin-dependent, with A1C 10.6 -Hypomagnesemia, 1.4 today -Hypovolemic hyponatremia, improved -Acute kidney injury likely prerenal, creatinine today 1.40, appears baseline -Chronic kidney disease stage III -Paroxysmal atrial fibrillation on anticoagulation with Eliquis -Hypertension -Hyperlipidemia -History of [place] status post cardiac catheterization. DVT prophylaxis: Eliquis O/H on heparin gtt GI Prophylaxis: Pepcid Full Code; discussed above in HPI Plan: Neurology service following MRI nondiagnostic, myositis workup negative Patient transferred to ICU for IVIG infusions Lumbar puncture today with cytology and pathology Replace electrolytes Insulin adjusted, patient started on enteral nutrition Monitor blood sugars closely and adjust as needed Urology follow up on discharge for bladder biopsy Was scheduled with Dr. Snow on this coming Friday for stress test. Continue all other supportive care Family updated on current code status and plan of care Repeat labs in AM PT/OT consult, social work msw consult Prognosis is guarded Objective - Vital Signs Vital signs: Vital Signs Temp 97.9 F 05/17/21 08:00 Pulse 78 05/17/21 11:00 Resp 30 H 05/17/21 11:00 BP 108/72 05/17/21 11:00 Pulse Ox 96 05/17/21 11:00 Intake & Output 05/16/21 05/17/21 05/17/21 18:59 06:59 18:59 Intake Total 1850 3167.662 0459.712 Output Total 1490 2655 340 Balance 360 -1620.699 953.712 Weight 90.2 kg 88.9 kg Intake: IV 894 490 9760 Sodium Chloride 0.9% 1, 728 872 8648 000 ml @ 100 mls/hr IV . Q10H [facility] Rx#:[id number] Intake, IV Titration 325 244.301 43.712 Amount Dexmedetomidine/0.9% NaCl 17.138 27.624 (Pmx) 400 mcg In Empty Bag 1 bag @ 0.2 MCG/KG/HR 4.51 mls/hr IV .[id number] [facility] Rx#:[id number] Heparin Sod,Pork in 0.45% 250 227.163 NaCl 25,000 unit In 0.45 % NaCl 1 250ml.bag @ 9 UNITS/KG/HR 10.002 mls/hr IV .Q24H [facility] Rx#: [id number] Norepinephrine 4 mg In 16.088 Sodium Chloride 0.9% 250 ml @ 0.05 MCG/KG/MIN 16. 935 mls/hr IV .Q15H [facility] Rx#:[id number] Sodium Chloride 0.9% 1, 75 000 ml @ 100 mls/hr IV . Q10H [facility] Rx#:[id number] Oral 700 Output: Urine 1490 2655 340 Other: Voiding Method Indwelling Catheter Indwelling Catheter ABP, PAP, CO, CI - Last Documented Arterial Blood Pressure 114/66 - Labs CBC & Chem 7: 05/17/21 06:01 05/17/21 06:01 Labs: Abnormal Lab Results - Last 24 Hours (Table) 05/15/21 05/16/21 05/16/21 Range/Units 05:18 11:27 17:04 APTT (22.0-30.0) sec Chloride (98-107) mmol/L Carbon Dioxide (22-30) mmol/L BUN (9-20) mg/dL Creatinine (0.66-1.25) mg/dL Glucose (74-99) mg/dL POC Glucose (mg/dL) 141 H 381 H (75-99) mg/dL Magnesium (1.6-2.3) mg/dL Total Protein (6.3-8.2) g/dL Albumin (PEP) 3.28 L (3.80-4.90) g/dL Tnpva-7-Koysosxmb 0.41 H (0.10-0.40) g/dL Xetnl-7-Soipkmjbq 1.16 H (0.60-1.00) g/dL 05/16/21 05/17/21 05/17/21 Range/Units 19:58 06:01 06:01 APTT 40.5 H (22.0-30.0) sec Chloride 108 H (98-107) mmol/L Carbon Dioxide 21 L (22-30) mmol/L BUN 40 H (9-20) mg/dL Creatinine 1.40 H (0.66-1.25) mg/dL Glucose 176 H (74-99) mg/dL POC Glucose (mg/dL) 125 H (75-99) mg/dL Magnesium 1.4 L (1.6-2.3) mg/dL Total Protein 8.4 H (6.3-8.2) g/dL Albumin (PEP) (3.80-4.90) g/dL Ztuxs-4-Xqqhspsaa (0.10-0.40) g/dL Zyetc-2-Wsmumjyxy (0.60-1.00) g/dL 05/17/21 Range/Units 06:49 APTT (22.0-30.0) sec Chloride (98-107) mmol/L Carbon Dioxide (22-30) mmol/L BUN (9-20) mg/dL Creatinine (0.66-1.25) mg/dL Glucose (74-99) mg/dL POC Glucose (mg/dL) 169 H (75-99) mg/dL Magnesium (1.6-2.3) mg/dL Total Protein (6.3-8.2) g/dL Albumin (PEP) (3.80-4.90) g/dL Kmmij-7-Iggeqnkrz (0.10-0.40) g/dL Vuuzi-7-Lvfgnkpve (0.60-1.00) g/dL Microbiology - Last 24 Hours (Table) 05/12/21 14:00 Blood Culture - Preliminary Blood No Growth after 96 hours 05/12/21 14:15 Blood Culture - Preliminary Blood No Growth after 96 hours 05/14/21 14:55 Urine Culture - Final Urine,Clean Catch Assessment and Plan Time with Patient: Greater than 30
[2021-05-17] MEDS ORDERED: IMMUNE GLOBULIN (GAMMAGARD) 10 GM in EMPTY BAG 1 BAG IV ONE (14:00)
[2021-05-17 14:17] LABS: Glucose,Whole Blood 206 mg/dL (75-99)
[2021-05-17 14:20] LABS: Glucose,CSF 104 mg/dL (40-70); Total Protein,CSF 148 mg/dL (12-60)
[2021-05-17] MEDS: HEPARIN SOD,PORK IN 0.45% NACL 25,000 UNIT in 0.45% NACL 1 250ML.BAG IV SCH (14:24)
[2021-05-17 14:55] LABS: Appearance,CSF Clear; CSF Tube Number 4; Red Blood Cell, CSF Crenated 0 %; Red Blood Cell, CSF Fresh 100 %; Red Blood Cell,CSF 118 u/L (0-10)
[2021-05-17 14:57] LABS: Nucleated Cells, CSF 1 u/L (0-5)
[2021-05-17 18:24] LABS: Glucose,Whole Blood 171 mg/dL (75-99)
[2021-05-17] MEDS: DEXMEDETOMIDINE/0.9% NACL(PMX) 400 MCG in EMPTY BAG 1 BAG IV SCH (20:25)
[2021-05-17 21:00] LABS: Glucose,Whole Blood 160 mg/dL (75-99)
[2021-05-17] MEDS: ATORVASTATIN 80 MG TAB PO SCH (21:03)
[2021-05-17] MEDS: CHLORHEXIDINE GLUCONATE 15 ML CUP MUCOUS MEM SCH (21:04)
[2021-05-18] MEDS: NOREPINEPHRINE 4 MG in SODIUM CHLORIDE 0.9% 250 ML IV SCH ×3 (00:59→13:45)
[2021-05-18] MEDS: SODIUM CHLORIDE 0.9% 1,000 ML IV SCH ×2 (01:09→20:12)
[2021-05-18] MEDS: ACETAMINOPHEN TAB 325 MG TAB PO PRN (03:52)
[2021-05-18 05:32] LABS: Albumin 2.7 g/dL (3.5-5.0); Calcium 8.8 mg/dL (8.4-10.2); Magnesium 1.7 mg/dL (1.6-2.3); Potassium 4.3 mmol/L (3.5-5.1); Total Bilirubin 0.6 mg/dL (0.2-1.3); Total Protein 7.2 g/dL (6.3-8.2)
[2021-05-18 05:58] LABS: ABG HCO3 21 mmol/L (21-25); ABG Oxygen Saturation 94.9 % (94-97); ABG PCO2 38 mmHg (35-45); ABG PH 7.35 (7.35-7.45); ABG PO2 76 mmHg (83-108); Allen Test Performed? Yes
[2021-05-18 06:04] LABS: Glucose,Whole Blood 169 mg/dL (75-99)
[2021-05-18] MEDS: MAGNESIUM SULFATE-D5W PMX 1 GM in DEXTROSE/WATER 1 100ML.BAG IVPB SCH ×2 (06:07→08:53)
[2021-05-18] MEDS: INSULIN ASPART (NovoLOG) 100 UNIT/ML VIAL SQ SCH ×5 (06:08→23:57)
--- NOTE | 2021-05-18 07:50 | XR ---
EXAMINATION TYPE: XR chest 1V portable DATE OF EXAM: 05/18/2021 COMPARISON: 05/17/2021 INDICATION: Tube placement difficulty breathing TECHNIQUE: Single frontal view of the chest is obtained. FINDINGS: The heart size is normal. The pulmonary vasculature is normal. Right lower lobe infiltrate is developing. Left lower lobe infiltrate may be developing. Left central venous catheter present with the tip in the superior vena cava region. Endotracheal tube tip is above the rosario. Nasogastric tube transverses the thorax. IMPRESSION: 1. Developing right lower lobe infiltrate. Some mild left lower lobe infiltrate may be present. 2. Lines and catheters discussed above
[2021-05-18] MEDS: PIPERACILLIN-TAZOBACTAM 3.375 GM in SODIUM CHLORIDE 0.9% 100 ML IVPB SCH ×3 (08:37→23:38)
[2021-05-18] MEDS: SERTRALINE 50 MG TAB PO SCH (08:53)
[2021-05-18] MEDS: METOPROLOL TARTRATE 50 MG TAB PO SCH ×2 (08:53→17:50)
[2021-05-18] MEDS: CHLORHEXIDINE GLUCONATE 15 ML CUP MUCOUS MEM SCH ×2 (08:53→20:08)
[2021-05-18] MEDS: CYANOCOBALAMIN 1,000 MCG/ML 1 ML VIAL IM SCH (08:53)
[2021-05-18] MEDS: PANTOPRAZOLE 40 MG/10 ML VIAL IVP SCH (08:53)
[2021-05-18] MEDS: FOLIC ACID 1 MG TAB PO SCH (08:53)
[2021-05-18] MEDS: NICOTINE 14MG/24HR PATCH TRANSDERM SCH (08:53)
[2021-05-18] MEDS ORDERED: IMMUNE GLOBULIN (GAMMAGARD) 20 GM in EMPTY BAG 1 BAG IV ONE (09:00)
[2021-05-18 09:17] LABS: Basophils % (A) 0 %; Eosinophils % (A) 0 %; HGB 12.8 gm/dL (13.0-17.5); Lymphocytes # (A) 0.7 k/uL (1.0-4.8); Lymphocytes % (A) 7 %; MCH 31.7 pg (25.0-35.0); MCHC 32.8 g/dL (31.0-37.0); MCV 96.6 fL (80.0-100.0); Mean Platelet Volume 10.9; Monocytes # (A) 1.1 k/uL (0-1.0); Monocytes % (A) 10 %; Neutrophils # (A) 9.1 k/uL (1.3-7.7); Neutrophils % (A) 82 %; Platelet Count 216 k/uL (150-450); RBC 4.04 m/uL (4.30-5.90); RDW 13.5 % (11.5-15.5); WBC 11.1 k/uL (3.8-10.6)
--- NOTE | 2021-05-18 10:00 | P.PN ---
Subjective Progress Note Date: 05/17/21 Patient was seen for a follow-up. Patient apparently developed increased respiratory distress overnight. He was placed on BiPAP. Patient finally got intubated at 9:45 AM. Patient just had undergone lumbar puncture. Patient currently on propofol 75 g per program per minute. Also on Levophed 0.16 g per program per minute. Objective - Vital Signs Vital signs: Vital Signs Temp 99.1 F 05/18/21 08:00 Pulse 89 05/18/21 09:00 Resp 30 H 05/18/21 09:00 BP 97/74 05/18/21 09:00 Pulse Ox 95 05/18/21 09:00 Intake & Output 05/17/21 05/18/21 05/18/21 18:59 06:59 18:59 Intake Total 2115.724 1831.230 343 Output Total 1030 1105 375 Balance 1085.724 726.230 -32 Weight 88.9 kg 89.8 kg 89.8 kg Intake: IV 1625 900 225 Sodium Chloride 0.9% 1, 1625 900 225 000 ml @ 100 mls/hr IV . Q10H [facility] Rx#:[id number] Intake, IV Titration 480.724 707.230 Amount Dexmedetomidine/0.9% NaCl 42.921 (Pmx) 400 mcg In Empty Bag 1 bag @ 0.2 MCG/KG/HR 4.51 mls/hr IV .[id number] [facility] Rx#:[id number] Heparin Sod,Pork in 0.45% 22.818 113.404 NaCl 25,000 unit In 0.45 % NaCl 1 250ml.bag @ 9 UNITS/KG/HR 10.002 mls/hr IV .Q24H [facility] Rx#: [id number] Immune Globulin ( 56.667 Gammagard) 20 gm In Empty Bag 1 bag @ Per Protocol 42.5 mls/hr IV .[id number] ONE Rx#:[id number] Norepinephrine 4 mg In 220.893 320.839 Sodium Chloride 0.9% 250 ml @ 0.05 MCG/KG/MIN 16. 935 mls/hr IV .Q15H [facility] Rx#:[id number] propofoL 1,000 mg In 137.425 272.987 Empty Bag 1 bag @ Titrate IV .Q0M [facility] Rx#: [id number] Tube Feeding 10 134 28 Other 90 90 Output: Gastric Drainage 100 Urine 930 1105 375 Other: Voiding Method Indwelling Catheter Indwelling Catheter ABP, PAP, CO, CI - Last Documented Arterial Blood Pressure 108/61 - Exam Patient is intubated, sedated. Exam limited. Pupils are round and reacting. - Labs CBC & Chem 7: 05/18/21 04:15 05/18/21 04:15 Labs: Abnormal Lab Results - Last 24 Hours (Table) 05/17/21 05/17/21 05/17/21 Range/Units 11:24 11:32 11:50 WBC (3.8-10.6) k/uL RBC (4.30-5.90) m/uL Hgb (13.0-17.5) gm/dL Neutrophils # (1.3-7.7) k/uL Lymphocytes # (1.0-4.8) k/uL Monocytes # (0-1.0) k/uL APTT (22.0-30.0) sec ABG pH 7.26 L (7.35-7.45) ABG pCO2 47 H (35-45) mmHg ABG pO2 174 H (83-108) mmHg ABG O2 Saturation 98.5 H (94-97) % Chloride (98-107) mmol/L Carbon Dioxide (22-30) mmol/L BUN (9-20) mg/dL Creatinine (0.66-1.25) mg/dL Glucose (74-99) mg/dL POC Glucose (mg/dL) 169 H (75-99) mg/dL Albumin (3.5-5.0) g/dL CSF RBC 118 H (0-10) u/L CSF Glucose 104 H (40-70) mg/dL CSF Total Protein 148 H (12-60) mg/dL 05/17/21 05/17/21 05/17/21 Range/Units 14:15 18:23 18:35 WBC (3.8-10.6) k/uL RBC (4.30-5.90) m/uL Hgb (13.0-17.5) gm/dL Neutrophils # (1.3-7.7) k/uL Lymphocytes # (1.0-4.8) k/uL Monocytes # (0-1.0) k/uL APTT 114.9 H* (22.0-30.0) sec ABG pH (7.35-7.45) ABG pCO2 (35-45) mmHg ABG pO2 (83-108) mmHg ABG O2 Saturation (94-97) % Chloride (98-107) mmol/L Carbon Dioxide (22-30) mmol/L BUN (9-20) mg/dL Creatinine (0.66-1.25) mg/dL Glucose (74-99) mg/dL POC Glucose (mg/dL) 206 H 171 H (75-99) mg/dL Albumin (3.5-5.0) g/dL CSF RBC (0-10) u/L CSF Glucose (40-70) mg/dL CSF Total Protein (12-60) mg/dL 05/17/21 05/18/21 05/18/21 Range/Units 20:59 01:40 04:15 WBC (3.8-10.6) k/uL RBC (4.30-5.90) m/uL Hgb (13.0-17.5) gm/dL Neutrophils # (1.3-7.7) k/uL Lymphocytes # (1.0-4.8) k/uL Monocytes # (0-1.0) k/uL APTT 80.8 H (22.0-30.0) sec ABG pH (7.35-7.45) ABG pCO2 (35-45) mmHg ABG pO2 (83-108) mmHg ABG O2 Saturation (94-97) % Chloride 113 H (98-107) mmol/L Carbon Dioxide 19 L (22-30) mmol/L BUN 38 H (9-20) mg/dL Creatinine 1.30 H (0.66-1.25) mg/dL Glucose 177 H (74-99) mg/dL POC Glucose (mg/dL) 160 H (75-99) mg/dL Albumin 2.7 L (3.5-5.0) g/dL CSF RBC (0-10) u/L CSF Glucose (40-70) mg/dL CSF Total Protein (12-60) mg/dL 05/18/21 05/18/21 05/18/21 Range/Units 04:15 05:21 06:02 WBC 11.1 H (3.8-10.6) k/uL RBC 4.04 L (4.30-5.90) m/uL Hgb 12.8 L (13.0-17.5) gm/dL Neutrophils # 9.1 H (1.3-7.7) k/uL Lymphocytes # 0.7 L (1.0-4.8) k/uL Monocytes # 1.1 H (0-1.0) k/uL APTT (22.0-30.0) sec ABG pH (7.35-7.45) ABG pCO2 (35-45) mmHg ABG pO2 76 L (83-108) mmHg ABG O2 Saturation (94-97) % Chloride (98-107) mmol/L Carbon Dioxide (22-30) mmol/L BUN (9-20) mg/dL Creatinine (0.66-1.25) mg/dL Glucose (74-99) mg/dL POC Glucose (mg/dL) 169 H (75-99) mg/dL Albumin (3.5-5.0) g/dL CSF RBC (0-10) u/L CSF Glucose (40-70) mg/dL CSF Total Protein (12-60) mg/dL 05/18/21 Range/Units 08:55 WBC (3.8-10.6) k/uL RBC (4.30-5.90) m/uL Hgb (13.0-17.5) gm/dL Neutrophils # (1.3-7.7) k/uL Lymphocytes # (1.0-4.8) k/uL Monocytes # (0-1.0) k/uL APTT 65.2 H (22.0-30.0) sec ABG pH (7.35-7.45) ABG pCO2 (35-45) mmHg ABG pO2 (83-108) mmHg ABG O2 Saturation (94-97) % Chloride (98-107) mmol/L Carbon Dioxide (22-30) mmol/L BUN (9-20) mg/dL Creatinine (0.66-1.25) mg/dL Glucose (74-99) mg/dL POC Glucose (mg/dL) (75-99) mg/dL Albumin (3.5-5.0) g/dL CSF RBC (0-10) u/L CSF Glucose (40-70) mg/dL CSF Total Protein (12-60) mg/dL Microbiology - Last 24 Hours (Table) 05/17/21 11:50 CSF Gram Stain - Preliminary Cerebral Spinal Fluid CSF Culture - Preliminary 05/12/21 14:15 Blood Culture - Preliminary Blood No Growth after 120 hours 05/12/21 14:00 Blood Culture - Preliminary Blood No Growth after 120 hours Assessment and Plan Assessment: * Guillain-Bergman syndrome. Patient has presented with rapidly progressive proximal and distal weakness of upper and lower extremities, diffuse areflexia, and sensory loss distally in the hands and in bilateral legs. Patient has developed progressive respiratory difficulty, with respiratory failure and now has been intubated. * Acute UTI. * Diabetes, poorly controlled * Mild to moderate renal insufficiency. * Hypertension * Atrial fibrillation, currently on Eliquis. * Tobacco use 1 pack per day for 30 years. Plan: * Patient has been intubated for respiratory failure from Magalie Ebrgman syndrome. * Continue IVIG. Today patient has received day #3 of IVIG. * Spinal fluid examination revealed CSF proteins 148/60, glucose 104, WBC 1, RBC 118. * Patient's CBC is normal. CMP with BUN 40, creatinine 1.40, both are stable. Hepatic panel normal. * MRI of brain revealed no acute stroke. Mild to moderate diffuse cerebral atrophy and moderate chronic small vessel ischemic changes. No suspicious enhancement noted. I personally reviewed MRI of the brain and agree with the findings. * MRI of the cervical spine with and without contrast was suboptimal study without definitive abnormal cord signal or enhancement in the cervical spine. There is central slightly T2 hyperintense nonenhancing lesion in the upper thoracic spine over 1.8 cm segment favoring a focal syrinx. I personally reviewed MRI of the cervical spine. The lesion mentioned appeared artifactual in nature. Again, this lesion would not explain any symptoms in the upper extremities for sure. * Continue IVIG 0.4 g/kg per day for total of 5 days. * Eliquis on hold since 05/14/2021. May resume oral anticoagulants post lumbar puncture. * Blood tests including TA negative B12 308, folic acid 6.3, TSH 3.25, hemoglobin A1c 10.6, ESR 28. IgG 1398, IgA is 513/350, IgM 73.9 normal. (No IgA deficiency). Immunofixation electrophoresis negative for monoclonal protein. Aldolase mildly elevated 7.9/7.6. Serum protein electrophoresis also negative for monoclonal gammopathy. Vitamin B6 is low 6, methylmalonic acid 0.16, vitamin B1 83 normal. Lyme titer pending. * Patient started on folic acid 1 mg daily and vitamin B12 1000 g IM daily for 3 days and vitamin B6 50 mg daily. * Patient currently on ceftriaxone for UTI. * Telemetry monitoring to rule out any arrhythmia. * Patient on heparin IV for DVT prophylaxis.
--- NOTE | 2021-05-18 11:52 | XR ---
EXAMINATION TYPE: XR chest 1V portable DATE OF EXAM: 05/18/2021 COMPARISON: Earlier exam same day INDICATION: Tube placement TECHNIQUE: Single frontal view of the chest is obtained. FINDINGS: The heart size is normal. The pulmonary vasculature is normal. Small right pleural effusion is present. Endotracheal tube tip is above the rosario. Nasogastric tube extends to the distal esophageal region a nd should be advanced. Left central venous catheter tip is in the superior vena cava region IMPRESSION: 1. Small to moderate right pleural effusion. 2. Lines and catheters discussed above. 3. The nasogastric tube extends to the distal esophagus and should be advanced.
--- NOTE | 2021-05-18 11:53 | XR ---
EXAMINATION TYPE: XR chest 1V portable DATE OF EXAM: 05/18/2021 COMPARISON: Earlier exam INDICATION: Status post bronchoscopy, nasogastric tube adjustment TECHNIQUE: Single frontal view of the chest is obtained. FINDINGS: The heart size is normal. The pulmonary vasculature is normal. Small right pleural effusion remains present. Endotracheal tube tip is above the rosario. Nasogastric tube transverses thorax. Left central venous c atheter tip is in the superior vena cava region. IMPRESSION: 1. Small to moderate right pleural effusion. 2. Lines and catheters discussed above.
--- NOTE | 2021-05-18 12:25 | OP ---
OPERATIVE REPORT OPERATIVE REPORT: Bronchoscopy, bronchoalveolar lavage of the right middle lobe and the right lower lobe, and suctioning of mucus plugs from the right mainstem bronchus, right middle lobe and right lower lobe. PREOPERATIVE DIAGNOSIS: Acute hypoxic respiratory failure, multifactorial, and right lower lobe collapse. POSTOPERATIVE DIAGNOSIS: Acute hypoxic respiratory failure, multifactorial, and right lower lobe collapse. ANESTHESIA USED: Patient was already on propofol drip during the procedure. PROCEDURE DESCRIPTION: Patient was placed in supine position. His endotracheal tube was connected to mechanical ventilation, and an adapter was applied. His oxygen saturation was continuously monitored. Blood pressure was continuously monitored and cardiac rhythm was continuously monitored. The bronchoscope was advanced through the adapter of the endotracheal tube and advanced all the way down to the rosario. Rosario was noted to be sharp. Left side was examined, and it was basically unremarkable. However, the right side was abnormal, showing significant mucus plugs in the right mainstem bronchus, right middle lobe and right lower lobe. These mucus plugs were suctioned. Lavage of the right middle lobe and right lower lobe was done, and lavage fluid was sent for different diagnostic studies. Procedure was well tolerated. Postoperative chest x-ray showed improvement in the right lower lobe atelectasis. Again no complications. The procedure was well tolerated. MMODL / IJN: [id number] /
[2021-05-18 12:38] LABS: Lyme IgG/IgM 0.26 Index
--- NOTE | 2021-05-18 12:38 | P.PN ---
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 His symptoms have progressed in the last few weeks to develop weakness in the upper extremities, and his speech was also somehow affected. Speech according to him is becoming a bit more slurred, and has been noticing tingling and weakness in the left foot for a while. Over the last 4 weeks, his symptoms have progressively gotten worse. Patient has never received any form of vaccination in the last few years. He is not even vaccinated for COVID-19 infection. Marsha mcneil denies any history of major medical illnesses although he did have history of coronary artery disease, dyslipidemia, diabetes, hypertension, and previous [place]. Patient has also been complaining of bloody urine, and new onset urinary incontinence. CT of the abdomen and pelvis showed bladder mass, possible possible malignancy patient was seen by urology, and planning cystoscopy on outpatient basis. At any rate the patient was seen yesterday by the neurologist for his neurological symptoms, and he raised the possibility of Guillain-Bergman syndrome. Patient had MRI of the brain and MRI of the cervical spine, his MRI of the brain is unremarkable. However his MRI of the cervical spine questioned non-enhancing lesion in the upper thoracic spine measuring 1.8 cm favoring focal syrinx. However the neurologist reviewed the MRI of the cervical spine, and he felt that this is mostly artifactual. And clearly stated in his note that his symptoms are not related to the syrinx. In addition he recommended starting the patient on IVIG, and he also recommended lumbar spine to be done tomorrow in the meantime his anticoagulation therapy is on hold. Pulmonary-white, patient describes minimal shortness of breath, no cough no wheezing no fever no chills, no hemoptysis and no chest pain. Considering his symptoms and considering the neurologist concern about possible Guillain-Bergman syndrome, patient was stressed to the ICU yesterday, and I have instructed the respirator therapy to perform nif monitoring on this patient. Patient was reevaluated today on 05/17/2021, ration had a deteriorating clinical course last night, patient developed a picture of hypoxic respiratory failure with worsening pulmonary status last night. I was notified about the patient, he was extremely congested, he had a very weak cough, and his saturations were down in the 70s even on a nonrebreather mask. Recommended immediate intubation of the patient, however I was told that the patient was DO NOT RESUSCITATE CODE STATUS. Then I recommended at least placing the patient on BiPAP, and placed on Precedex for extreme agitation. Apparently overnight the CODE STATUS was changed to full code, I was not notified about the change in the CODE STATUS. I saw this patient this morning today, his respiratory status he is deteriorating, and does not seem to be doing well with BiPAP. Then I recommended again i mmediate intubation. Patient was intubated, placed on mechanical ventilation, he is now on assist control rate of 30 tidal volume 400 FiO2 on the percent and PEEP of 8. Patient was also noted to be hypotensive, on norepinephrine, and he is on 0.15 mcg/kg/m. Placed on propofol at 75 mcg/kg/m, fluid boluses were given. Went ahead and placed a left subclavian central line, and right brachial arterial line was also placed. Anesthesia is to perform lumbar puncture on this patient sometime today. Chest x-ray post intubation and post left subclavian central line showed adequate placement of the lines and endotracheal tube, significant bibasilar atelectasis and possibly a small left pleural effusion noted. ABG is pending. Reevaluated today on 05/18/2021, patient remains in the ICU, intubated and mechanically ventilated. However patient was noted to develop worsening chest x-ray and the right lower lobe collapse/atelectasis, and intermittently we have been increasing his FiO2 with worsening chest x-ray, hence I recommended bronchoscopy today and he underwent a bronchoscopy with bronchoalveolar lavage of the right middle lobe, right lower lobe, and a mucous plugs worse suctioned out of the airway especially on the right side. Procedure was well-tolerated, and the plan is to go down on his FiO2. He was initially on 50%, we had to increase his FiO2 up to 80%. He is now back on assist control mode of mechanical ventilation rate 30 tidal volume 430 FiO2 I 50% and PEEP of 8. ABG showed a pO2 of 76 pCO2 of 38 pH of 7.35. Peak airway pressure is 26 blood pressure is 23. Patient remains on multiple drips including norepinephrine, propofol, 45 mcg/kg/m, he is also on norepinephrine at 7 mcg/m, IV fluid at 75 mL per hour in the form of 0.9 normal saline. Patient continues to have persistent hematuria. Chest x-ray as noted above showed mostly right lower lobe collapse. And atelectasis. 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 Patient remains on IVIG. Patient is receiving enteral feeding in the form of vital HPI at 14 mL per hour. Considering the worsening of his pulmonary status today, patient was not felt to be ideal to consider weaning or to assess off sedation. Objective - Vital Signs Vital signs: Vital Signs Temp 99.7 F H 05/18/21 12:00 Pulse 92 05/18/21 12:00 Resp 31 H 05/18/21 12:00 BP 97/74 05/18/21 09:00 Pulse Ox 96 05/18/21 12:00 Intake & Output 05/17/21 05/18/21 05/18/21 18:59 06:59 18:59 Intake Total 2115.724 1831.230 779.356 Output Total 1030 1105 750 Balance 1085.724 726.230 29.356 Weight 88.9 kg 89.8 kg 89.8 kg Intake: IV 1625 900 450 Sodium Chloride 0.9% 1, 1625 900 300 000 ml @ 100 mls/hr IV . Q10H [facility] Rx#:[id number] Sodium Chloride 0.9% 1, 150 000 ml @ 75 mls/hr IV . [id number] [facility] Rx#:[id number] Intake, IV Titration 480.724 707.230 169.356 Amount Dexmedetomidine/0.9% NaCl 42.921 (Pmx) 400 mcg In Empty Bag 1 bag @ 0.2 MCG/KG/HR 4.51 mls/hr IV .[id number] [facility] Rx#:[id number] Heparin Sod,Pork in 0.45% 22.818 113.404 NaCl 25,000 unit In 0.45 % NaCl 1 250ml.bag @ 9 UNITS/KG/HR 10.002 mls/hr IV .Q24H [facility] Rx#: [id number] Immune Globulin ( 56.667 Gammagard) 20 gm In Empty Bag 1 bag @ Per Protocol 42.5 mls/hr IV .Q4H43M [facility] Rx#:[id number] Norepinephrine 4 mg In 220.893 320.839 169.356 Sodium Chloride 0.9% 250 ml @ 0.05 MCG/KG/MIN 16. 935 mls/hr IV .Q15H [facility] Rx#:[id number] propofoL 1,000 mg In 137.425 272.987 Empty Bag 1 bag @ Titrate IV .Q0M [facility] Rx#: [id number] Tube Feeding 10 134 70 Other 90 90 Output: Gastric Drainage 100 Urine 930 1105 750 Other: Voiding Method Indwelling Catheter Indwelling Catheter ABP, PAP, CO, CI - Last Documented Arterial Blood Pressure 94/54 - Exam Physical Exam revealed a 70-year-old white male intubated, mechanically ventilated. Sedated Head: Atraumatic, normocephalic. Endotracheal tube and orogastric tube are intact. HEENT:[Neck is supple.] [No neck masses.] [No thyromegaly.] [No JVD.] Chest: [Symmetrical chest expansion diminished breath sounds at the right base. Cardiac: Regular rhythm, no S3 gallop, no murmur. Abdomen: [Soft, nontender, no megaly, no rebound, no guarding, normal bowel sounds.] Extremities: [No clubbing, no edema, no cyanosis.] Neurological Exam: Cannot assess, patient is sedated, intubated. Psychiatric: Cannot assess patient is sedated and intubated. Skin: No rashes. - Labs CBC & Chem 7: 05/18/21 04:15 05/18/21 04:15 Labs: Abnormal Lab Results - Last 24 Hours (Table) 05/17/21 05/17/21 05/17/21 Range/Units 11:50 14:15 18:23 WBC (3.8-10.6) k/uL RBC (4.30-5.90) m/uL Hgb (13.0-17.5) gm/dL Neutrophils # (1.3-7.7) k/uL Lymphocytes # (1.0-4.8) k/uL Monocytes # (0-1.0) k/uL APTT (22.0-30.0) sec ABG pO2 (83-108) mmHg Chloride (98-107) mmol/L Carbon Dioxide (22-30) mmol/L BUN (9-20) mg/dL Creatinine (0.66-1.25) mg/dL Glucose (74-99) mg/dL POC Glucose (mg/dL) 206 H 171 H (75-99) mg/dL Albumin (3.5-5.0) g/dL CSF RBC 118 H (0-10) u/L CSF Glucose 104 H (40-70) mg/dL CSF Total Protein 148 H (12-60) mg/dL 05/17/21 05/17/21 05/18/21 Range/Units 18:35 20:59 01:40 WBC (3.8-10.6) k/uL RBC (4.30-5.90) m/uL Hgb (13.0-17.5) gm/dL Neutrophils # (1.3-7.7) k/uL Lymphocytes # (1.0-4.8) k/uL Monocytes # (0-1.0) k/uL APTT 114.9 H* 80.8 H (22.0-30.0) sec ABG pO2 (83-108) mmHg Chloride (98-107) mmol/L Carbon Dioxide (22-30) mmol/L BUN (9-20) mg/dL Creatinine (0.66-1.25) mg/dL Glucose (74-99) mg/dL POC Glucose (mg/dL) 160 H (75-99) mg/dL Albumin (3.5-5.0) g/dL CSF RBC (0-10) u/L CSF Glucose (40-70) mg/dL CSF Total Protein (12-60) mg/dL 05/18/21 05/18/21 05/18/21 Range/Units 04:15 04:15 05:21 WBC 11.1 H (3.8-10.6) k/uL RBC 4.04 L (4.30-5.90) m/uL Hgb 12.8 L (13.0-17.5) gm/dL Neutrophils # 9.1 H (1.3-7.7) k/uL Lymphocytes # 0.7 L (1.0-4.8) k/uL Monocytes # 1.1 H (0-1.0) k/uL APTT (22.0-30.0) sec ABG pO2 76 L (83-108) mmHg Chloride 113 H (98-107) mmol/L Carbon Dioxide 19 L (22-30) mmol/L BUN 38 H (9-20) mg/dL Creatinine 1.30 H (0.66-1.25) mg/dL Glucose 177 H (74-99) mg/dL POC Glucose (mg/dL) (75-99) mg/dL Albumin 2.7 L (3.5-5.0) g/dL CSF RBC (0-10) u/L CSF Glucose (40-70) mg/dL CSF Total Protein (12-60) mg/dL 05/18/21 05/18/21 Range/Units 06:02 08:55 WBC (3.8-10.6) k/uL RBC (4.30-5.90) m/uL Hgb (13.0-17.5) gm/dL Neutrophils # (1.3-7.7) k/uL Lymphocytes # (1.0-4.8) k/uL Monocytes # (0-1.0) k/uL APTT 65.2 H (22.0-30.0) sec ABG pO2 (83-108) mmHg Chloride (98-107) mmol/L Carbon Dioxide (22-30) mmol/L BUN (9-20) mg/dL Creatinine (0.66-1.25) mg/dL Glucose (74-99) mg/dL POC Glucose (mg/dL) 169 H (75-99) mg/dL Albumin (3.5-5.0) g/dL CSF RBC (0-10) u/L CSF Glucose (40-70) mg/dL CSF Total Protein (12-60) mg/dL Microbiology - Last 24 Hours (Table) 05/17/21 11:50 CSF Gram Stain - Preliminary Cerebral Spinal Fluid CSF Culture - Preliminary 05/12/21 14:15 Blood Culture - Preliminary Blood No Growth after 120 hours 05/12/21 14:00 Blood Culture - Preliminary Blood No Growth after 120 hours Assessment and Plan Assessment: Impression: 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 Areflexia, and sensory loss distally. Went on to develop respiratory difficulty and a story failure. Right lower lobe pneumonia or atelectasis status post bronchoscopy with BAL, and suctioning of mucous plugs from the right mainstem bronchus, right middle lobe, and right lower lobe. Bronchoscopy done on 05/18/01 Hematuria, possible bladder malignancy or prostate malignancy being investigated by urology. Chronic atrial fibrillation, on Eliquis. [id number] smoking history. Benign essential hypertension. Type 2 diabetes. Chronic renal failure, baseline creatinine on admission was in the range of 1.4. Recommendation: Continue ventilatory support, patient was mechanically ventilated on 05/17/2021, Titrate FiO2 down maintaining O2 session of 90%. Titrate norepinephrine accordingly. Patient is presently on 7 mcg/m. Lumbar puncture results were reviewed, consistent with Guillain-Bergman syndrome. IVIG to continue. GI and DVT prophylaxis. Enteral feeding/nutritional support. Patient is on vital HPI at 14 mL per hour/goal Remains critically ill Urology is following his hematuria, will eventually require cystoscopy. We will continue to follow. critical time is over 30 minutes, not including the time spent on procedures. Time with Patient: Greater than 30
[2021-05-18] MEDS: PYRIDOXINE 50 MG TAB PO SCH (12:46)
[2021-05-18 13:06] LABS: Glucose,Whole Blood 182 mg/dL (75-99)
[2021-05-18] MEDS ORDERED: IMMUNE GLOBULIN (GAMMAGARD) 10 GM in EMPTY BAG 1 BAG IV ONE (14:00)
[2021-05-18 17:09] LABS: Glucose,Whole Blood 168 mg/dL (75-99)
--- NOTE | 2021-05-18 18:00 | P.PN ---
Subjective From records Patient is a 70-year-old male with a known history of hypertension, hyperlipidemia, diabetes type 2 insulin-dependent, history of ND status post cardiac catheterization, currently everyday smoker and BPH presented to ER with complaints of left hip pain and also left shoulder pain. Pain gets worse with movement. Patient denies any recent falls. Patient initially presented to ER and had CT abdominal pelvis which showed moderate bilateral hydronephrosis and hydroureter. This could relate to reflux. Appearance not changed compared with exam. Dilated gallbladder increased compared to holograms history of cholecystitis. There are few calcified gallstones. Pancreatic calcifications appear unchanged and consistent with chronic pancreatitis. Sigmoid diverticulosis hypertrophic changes in the urinary bladder similar to old exam. Nodular density at the base of the bladder could be enlarged prostate or bladder mass. Unchanged. Enlarged prostate. There is a 12 mm stellate nodule in the subpleural lateral right lower lobe that appears to be new compared to old exam. Follow-up recommended. X-ray of the shoulder no acute fracture or dislocation. Moderate narrowing and mild to moderate spurring at the acromioclavicular joint is more prominent from prior. Hip x-ray showed mild to moderate degenerative joint disease. Laboratory data showed sodium 135 potassium 4.3 chloride 102 bicarb is 21 BUN 20 and creatinine 1.47 blood sugar is 267 Urinalysis showed large blood nitrate negative and large leukocyte esterase with elevated RBCs and WBCs. WBC 11.5 hemoglobin 14.3 and platelets 277. Coronavirus PCR not detected. 05/13/2021 Patient is currently lying in the bed. Awake alert and still complaining of left lower abdominal pain and hip pain. X-ray of the hip showed mild degenerative changes without acute fracture or dislocation. Overlying soft tissue appears unremarkable. Vascular calcifications noted. Otherwise no acute process identified. Patient admitted on pain management. Urology has seen the patient and recommend outpatient follow-up for cystoscopy. Resume Eliquis at this time. PT OT consult and continue with pain management. Subjective: resuming the care from above 05/14/2021 This is a pleasant 70 years old male who presents on 05/12 for limb pain and inability to walk. Patient complains from weakness in all 4 extremities but more pronounced in the left leg as he states he barely can lift it off the bed. Also he has decreased sensation when examined his left leg. However he complains also to some degree of weakness from all 4 extremities motor he could not move his both arms above his head however passively I could move them up and patient had good tone in his muscles and he could hold them up above his head but then he will drop down once released Patient denies any abdominal pain today and he states that his hematuria has been cleared today back to yellow urine. Patient also feels generally weak and he might need to go to rehab. Patient hematuria problem is not in the room and he has his urologist seen prior to hospitalization and he is supposed to get stress test with car sales associate this, the Friday as part of preop evaluation. Also patient states that he was on baby aspirin at home but he ran out of it about one week prior to hospitalization. Also he is on Eliquis Patient told me that he has A. fib and that's why he takes Eliquis at home and that has been taking Eliquis and aspirated one week ago Subjective: Resuming the care of the patient again starting to 05/18/2021, after Dr. Jefferson. Patient currently in the ICU intubated and sedated. 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 With pulmonary/critical care team following him closely and help with vent management, today his FiO2 increased 50% up to 8% after pO2 was low 76. Rest of ABG was normal. He remains on PEEP of 8. Also patient is receiving IVIG. Today's the third dose. His lumbar puncture was consistent with his Gullian Juan syndrome with elevated opening up pressure at 30 cm of water . Also RBCs high 118, decreased protein 148, glucose is 104. Nucleated cells/WBC 1 only. Also patient developing low-grade fever and chest x-ray showing marked lower lobe infiltrate and his antibiotics was adjustment today ceftriaxone and to Zosyn. Patient remains critically ill. Objective - Vital Signs Vital signs: Vital Signs Temp 99.1 F 05/18/21 08:00 Pulse 89 05/18/21 09:00 Resp 30 H 05/18/21 09:00 BP 97/74 05/18/21 09:00 Pulse Ox 95 05/18/21 09:00 Intake & Output 05/17/21 05/18/21 05/18/21 18:59 06:59 18:59 Intake Total 2115.724 1831.230 343 Output Total 1030 1105 375 Balance 1085.724 726.230 -32 Weight 88.9 kg 89.8 kg Intake: IV 1625 900 225 Sodium Chloride 0.9% 1, 1625 900 225 000 ml @ 100 mls/hr IV . Q10H [facility] Rx#:[id number] Intake, IV Titration 480.724 707.230 Amount Dexmedetomidine/0.9% NaCl 42.921 (Pmx) 400 mcg In Empty Bag 1 bag @ 0.2 MCG/KG/HR 4.51 mls/hr IV .[id number] [facility] Rx#:[id number] Heparin Sod,Pork in 0.45% 22.818 113.404 NaCl 25,000 unit In 0.45 % NaCl 1 250ml.bag @ 9 UNITS/KG/HR 10.002 mls/hr IV .Q24H [facility] Rx#: [id number] Immune Globulin ( 56.667 Gammagard) 20 gm In Empty Bag 1 bag @ Per Protocol 42.5 mls/hr IV .Q4H43M [facility] Rx#:[id number] Norepinephrine 4 mg In 220.893 320.839 Sodium Chloride 0.9% 250 ml @ 0.05 MCG/KG/MIN 16. 935 mls/hr IV .Q15H [facility] Rx#:[id number] propofoL 1,000 mg In 137.425 272.987 Empty Bag 1 bag @ Titrate IV .Q0M [facility] Rx#: [id number] Tube Feeding 10 134 28 Other 90 90 Output: Gastric Drainage 100 Urine 930 1105 375 Other: Voiding Method Indwelling Catheter Indwelling Catheter ABP, PAP, CO, CI - Last Documented Arterial Blood Pressure 108/61 - Exam -GENERAL: The patient is intubated and sedated HEENT: Pupils are round and equally reacting to light. EOMI. No scleral icterus. No conjunctival pallor. Normocephalic, atraumatic. No pharyngeal erythema. No thyromegaly. CARDIOVASCULAR: S1 and S2 present. No murmurs, rubs, or gallops. PULMONARY: Chest is clear to auscultation, no wheezing or crackles. ABDOMEN: Soft, nontender, nondistended, normoactive bowel sounds. No palpable organomegaly. MUSCULOSKELETAL: No joint swelling or deformity. EXTREMITIES: No cyanosis, clubbing, or pedal edema. -NEUROLOGICAL: Examination is limited by patient intubation. Pupils are equal and reactive to light. No facial asymmetry. Absent reflexes SKIN: No rashes. no petechiae. - Labs CBC & Chem 7: 05/18/21 04:15 05/18/21 04:15 Labs: Abnormal Lab Results - Last 24 Hours (Table) 05/17/21 05/17/21 05/17/21 Range/Units 11:24 11:32 11:50 APTT (22.0-30.0) sec ABG pH 7.26 L (7.35-7.45) ABG pCO2 47 H (35-45) mmHg ABG pO2 174 H (83-108) mmHg ABG O2 Saturation 98.5 H (94-97) % Chloride (98-107) mmol/L Carbon Dioxide (22-30) mmol/L BUN (9-20) mg/dL Creatinine (0.66-1.25) mg/dL Glucose (74-99) mg/dL POC Glucose (mg/dL) 169 H (75-99) mg/dL Albumin (3.5-5.0) g/dL CSF RBC 118 H (0-10) u/L CSF Glucose 104 H (40-70) mg/dL CSF Total Protein 148 H (12-60) mg/dL 05/17/21 05/17/21 05/17/21 Range/Units 14:15 18:23 18:35 APTT 114.9 H* (22.0-30.0) sec ABG pH (7.35-7.45) ABG pCO2 (35-45) mmHg ABG pO2 (83-108) mmHg ABG O2 Saturation (94-97) % Chloride (98-107) mmol/L Carbon Dioxide (22-30) mmol/L BUN (9-20) mg/dL Creatinine (0.66-1.25) mg/dL Glucose (74-99) mg/dL POC Glucose (mg/dL) 206 H 171 H (75-99) mg/dL Albumin (3.5-5.0) g/dL CSF RBC (0-10) u/L CSF Glucose (40-70) mg/dL CSF Total Protein (12-60) mg/dL 05/17/21 05/18/21 05/18/21 Range/Units 20:59 01:40 04:15 APTT 80.8 H (22.0-30.0) sec ABG pH (7.35-7.45) ABG pCO2 (35-45) mmHg ABG pO2 (83-108) mmHg ABG O2 Saturation (94-97) % Chloride 113 H (98-107) mmol/L Carbon Dioxide 19 L (22-30) mmol/L BUN 38 H (9-20) mg/dL Creatinine 1.30 H (0.66-1.25) mg/dL Glucose 177 H (74-99) mg/dL POC Glucose (mg/dL) 160 H (75-99) mg/dL Albumin 2.7 L (3.5-5.0) g/dL CSF RBC (0-10) u/L CSF Glucose (40-70) mg/dL CSF Total Protein (12-60) mg/dL 05/18/21 05/18/21 Range/Units 05:21 06:02 APTT (22.0-30.0) sec ABG pH (7.35-7.45) ABG pCO2 (35-45) mmHg ABG pO2 76 L (83-108) mmHg ABG O2 Saturation (94-97) % Chloride (98-107) mmol/L Carbon Dioxide (22-30) mmol/L BUN (9-20) mg/dL Creatinine (0.66-1.25) mg/dL Glucose (74-99) mg/dL POC Glucose (mg/dL) 169 H (75-99) mg/dL Albumin (3.5-5.0) g/dL CSF RBC (0-10) u/L CSF Glucose (40-70) mg/dL CSF Total Protein (12-60) mg/dL Microbiology - Last 24 Hours (Table) 05/17/21 11:50 CSF Gram Stain - Preliminary Cerebral Spinal Fluid CSF Culture - Preliminary 05/12/21 14:15 Blood Culture - Preliminary Blood No Growth after 120 hours 05/12/21 14:00 Blood Culture - Preliminary Blood No Growth after 120 hours Assessment and Plan Assessment: 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 Needs cystoscopy as an outpatient Bilateral moderate hydronephrosis Hematuria resolved now. Acute urinary tract infection. on antibiotic Hyperglycemia with uncontrolled diabetes type 2 insulin-dependent Hypomagnesemia Hypovolemic hyponatremia Acute kidney injury likely prerenal Chronic kidney disease stage III Paroxysmal atrial fibrillation on anticoagulation with Eliquis Hypertension Hyperlipidemia History of ND status post cardiac catheterization. Plan: This is a pleasant 70 years old male who presents with hematuria and generalized weakness and generalized pain. Left leg weakness and decreased sensation. Continue mechanical ventilation with the help of the pulmonary/critical care team will follow him closely Continue with IVIG as per neurology team will follow him closely as well Continue heparin drip while holding Eliquis due to his history of A. fib Continue with Zosyn Urology on the case and patient informed to need cystoscopy and possible TURP as an outpatient and he verbalized understanding and acceptance. The risk of cancer explained Prior to intubation Follow-up with car sales associate Dr. Snow on this coming Friday for stress test. He is discharged before that. Patient informed and he agrees. Labs and medication were reviewed.. Continue same treatment. Continue with symptomatic treatment. Resume home medication. Monitor lytes and vitals. DVT and GI prophylaxis. Further recommendations as per clinical course of the ofe aj DVT prophylaxis: On heparin drip GI Prophylaxis: Pepcid PT/OT: deferred Prognosis is guarded
[2021-05-18] MEDS: HEPARIN SOD,PORK IN 0.45% NACL 25,000 UNIT in 0.45% NACL 1 250ML.BAG IV SCH (19:53)
[2021-05-18 20:00] LABS: Glucose,Whole Blood 144 mg/dL (75-99)
[2021-05-18] MEDS: ATORVASTATIN 80 MG TAB PO SCH (20:07)
[2021-05-18] MEDS: INSULIN DETEMIR (LEVEMIR) 100 UNIT/ML SYR SQ SCH (20:07)
[2021-05-18] MEDS ORDERED: DEXTROSE 5% IN WATER 100 ML with AMIODARONE 150 MG IV ONE (22:23)
[2021-05-18] MEDS ORDERED: AMIODARONE 360 MG in DEXTROSE 5% IN WATER 200 ML IV ONE ×2 (22:32)
[2021-05-18] MEDS ORDERED: AMIODARONE IN DEXTROSE,ISO-OSM 150 MG/100 ML PLAST..BAG IV ONE (22:39)
[2021-05-18 23:47] LABS: Glucose,Whole Blood 142 mg/dL (75-99)
[2021-05-19] MEDS: HEPARIN SOD,PORK IN 0.45% NACL 25,000 UNIT in 0.45% NACL 1 250ML.BAG IV SCH (01:07)
[2021-05-19 03:52] LABS: Glucose,Whole Blood 177 mg/dL (75-99)
[2021-05-19] MEDS: SODIUM CHLORIDE 0.9% 1,000 ML IV SCH ×2 (03:56→19:23)
[2021-05-19] MEDS: INSULIN ASPART (NovoLOG) 100 UNIT/ML VIAL SQ SCH ×6 (03:59→23:52)
[2021-05-19] MEDS ORDERED: AMIODARONE 450 MG in DEXTROSE 5% IN WATER 250 ML IV SCH ×2 (04:30)
[2021-05-19 04:31] LABS: Basophils % (A) 0 %; Eosinophils % (A) 0 %; HCT 38.5 % (39.0-53.0); HGB 12.2 gm/dL (13.0-17.5); Lymphocytes # (A) 0.7 k/uL (1.0-4.8); Lymphocytes % (A) 6 %; MCH 31.2 pg (25.0-35.0); MCHC 31.8 g/dL (31.0-37.0); MCV 98.1 fL (80.0-100.0); Mean Platelet Volume 8.1; Monocytes # (A) 0.6 k/uL (0-1.0); Monocytes % (A) 5 %; Neutrophils # (A) 11.4 k/uL (1.3-7.7); Neutrophils % (A) 89 %; Platelet Count 202 k/uL (150-450); RBC 3.92 m/uL (4.30-5.90); RDW 13.9 % (11.5-15.5); WBC 12.9 k/uL (3.8-10.6)
[2021-05-19 04:46] LABS: Albumin 2.6 g/dL (3.5-5.0); Calcium 8.5 mg/dL (8.4-10.2); Potassium 4.3 mmol/L (3.5-5.1); Total Bilirubin 0.6 mg/dL (0.2-1.3); Total Protein 7.1 g/dL (6.3-8.2)
[2021-05-19 05:44] LABS: ABG Base Excess -5.1 mmol/L; ABG HCO3 22 mmol/L (21-25); ABG PCO2 50 mmHg (35-45); ABG PH 7.26 (7.35-7.45); ABG PO2 98 mmHg (83-108); ABG TCO2 24 mmol/L (19-24); Allen Test Performed? Yes
[2021-05-19] MEDS: NOREPINEPHRINE 4 MG in SODIUM CHLORIDE 0.9% 250 ML IV SCH ×2 (06:28→19:51)
--- NOTE | 2021-05-19 06:41 | XR ---
EXAMINATION TYPE: XR chest 1V portable DATE OF EXAM: 05/19/2021 5:21 AM COMPARISON:Chest radiograph from one day prior. TECHNIQUE: XR chest 1V portable Frontal view of the chest. CLINICAL INDICATION:Male, 70 years old with history of Tube placement; FINDINGS: Lungs/Pleura: Similar right basilar airspace opacities along with left basilar and perihilar opacitie s. No pneumothorax. The large pleural effusion identified. Pulmonary vascularity: Pulmonary vascular congestion. Heart/mediastinum: Cardiomediastinal silhouette is partially obscured due to overlying and adjacent o pacities. Musculoskeletal: No acute osseous pathology. Other findings: None Lines/Tubes: Endotracheal tube with distal tip 3.3 cm above the rosario Nasogastric tube with its distal tip and side-port projecting under the diaphragm. IMPRESSION: 1. Support tubes in appropriate position. 2. Increase in pulmonary vascular congestion. 3. Bibasilar opacities could represent atelectasis or pneumonia.
[2021-05-19 08:07] LABS: Glucose,Whole Blood 171 mg/dL (75-99)
[2021-05-19] MEDS: PIPERACILLIN-TAZOBACTAM 3.375 GM in SODIUM CHLORIDE 0.9% 100 ML IVPB SCH ×3 (08:15→23:18)
[2021-05-19] MEDS: CHLORHEXIDINE GLUCONATE 15 ML CUP MUCOUS MEM SCH ×2 (08:16→19:57)
[2021-05-19] MEDS: PANTOPRAZOLE 40 MG/10 ML VIAL IVP SCH (08:16)
[2021-05-19] MEDS: METOPROLOL TARTRATE 50 MG TAB PO SCH ×2 (08:17→19:57)
[2021-05-19] MEDS: FOLIC ACID 1 MG TAB PO SCH (08:17)
[2021-05-19] MEDS: NICOTINE 14MG/24HR PATCH TRANSDERM SCH (08:17)
[2021-05-19] MEDS: SERTRALINE 50 MG TAB PO SCH (08:27)
[2021-05-19] MEDS: PYRIDOXINE 50 MG TAB PO SCH (08:27)
[2021-05-19] MEDS ORDERED: IMMUNE GLOBULIN (GAMMAGARD) 20 GM in EMPTY BAG 1 BAG IV ONE (09:00)
[2021-05-19] MEDS: MAGNESIUM SULFATE-D5W PMX 1 GM in DEXTROSE/WATER 1 100ML.BAG IVPB SCH ×2 (09:58→11:02)
--- NOTE | 2021-05-19 10:35 | P.PN ---
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 His symptoms have progressed in the last few weeks to develop weakness in the upper extremities, and his speech was also somehow affected. Speech according to him is becoming a bit more slurred, and has been noticing tingling and weakness in the left foot for a while. Over the last 4 weeks, his symptoms have progressively gotten worse. Patient has never received any form of vaccination in the last few years. He is not even vaccinated for COVID-19 infection. 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 Patient has also been complaining of bloody urine, and new onset urinary incontinence. CT of the abdomen and pelvis showed bladder mass, possible possible malignancy patient was seen by urology, and planning cystoscopy on outpatient basis. At any rate the patient was seen yesterday by the neurologist for his neurological symptoms, and he raised the possibility of Guillain-Bergman syndrome. Patient had MRI of the brain and MRI of the cervical spine, his MRI of the brain is unremarkable. However his MRI of the cervical spine questioned non-enhancing lesion in the upper thoracic spine measuring 1.8 cm favoring focal syrinx. However the neurologist reviewed the MRI of the cervical spine, and he felt that this is mostly artifactual. And clearly stated in his note that his symptoms are not related to the syrinx. In addition he recommended starting the patient on IVIG, and he also recommended lumbar spine to be done tomorrow in the meantime his anticoagulation therapy is on hold. Pulmonary-white, patient describes minimal shortness of breath, no cough no wheezing no fever no chills, no hemoptysis and no chest pain. Considering his symptoms and considering the neurologist concern about possible Guillain-Bergman syndrome, patient was stressed to the ICU yesterday, and I have instructed the respirator therapy to perform nif monitoring on this patient. Patient was reevaluated today on 05/17/2021, ration had a deteriorating clinical course last night, patient developed a picture of hypoxic respiratory failure with worsening pulmonary status last night. I was notified about the patient, he was extremely congested, he had a very weak cough, and his saturations were down in the 70s even on a nonrebreather mask. Recommended immediate intubation of the patient, however I was told that the patient was DO NOT RESUSCITATE CODE STATUS. Then I recommended at least placing the patient on BiPAP, and placed on Precedex for extreme agitation. Apparently overnight the CODE STATUS was changed to full code, I was not notified about the change in the CODE STATUS. I saw this patient this morning today, his respiratory status he is deteriorating, and does not seem to be doing well with BiPAP. Then I recommended again i mmediate intubation. Patient was intubated, placed on mechanical ventilation, he is now on assist control rate of 30 tidal volume 400 FiO2 on the percent and PEEP of 8. Patient was also noted to be hypotensive, on norepinephrine, and he is on 0.15 mcg/kg/m. Placed on propofol at 75 mcg/kg/m, fluid boluses were given. Went ahead and placed a left subclavian central line, and right brachial arterial line was also placed. Anesthesia is to perform lumbar puncture on this patient sometime today. Chest x-ray post intubation and post left subclavian central line showed adequate placement of the lines and endotracheal tube, significant bibasilar atelectasis and possibly a small left pleural effusion noted. ABG is pending. Reevaluated today on 05/18/2021, patient remains in the ICU, intubated and mechanically ventilated. However patient was noted to develop worsening chest x-ray and the right lower lobe collapse/atelectasis, and intermittently we have been increasing his FiO2 with worsening chest x-ray, hence I recommended bronchoscopy today and he underwent a bronchoscopy with bronchoalveolar lavage of the right middle lobe, right lower lobe, and a mucous plugs worse suctioned out of the airway especially on the right side. Procedure was well-tolerated, and the plan is to go down on his FiO2. He was initially on 50%, we had to increase his FiO2 up to 80%. He is now back on assist control mode of mechanical ventilation rate 30 tidal volume 430 FiO2 I 50% and PEEP of 8. ABG showed a pO2 of 76 pCO2 of 38 pH of 7.35. Peak airway pressure is 26 blood pressure is 23. Patient remains on multiple drips including norepinephrine, propofol, 45 mcg/kg/m, he is also on norepinephrine at 7 mcg/m, IV fluid at 75 mL per hour in the form of 0.9 normal saline. Patient continues to have persistent hematuria. Chest x-ray as noted above showed mostly right lower lobe collapse. And atelectasis. 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 Patient remains on IVIG. Patient is receiving enteral feeding in the form of vital HPI at 14 mL per hour. Considering the worsening of his pulmonary status today, patient was not felt to be ideal to consider weaning or to assess off sedation. Reevaluated today on 05/19/2021, patient remains in the ICU, intubated and mechanically ventilated. Patient is on assist control rate of 3 to tidal volume is 430 FiO2 of 65% and PEEP of 8. ABG showed a pO2 of 98 pCO2 of 50 pH of 7.26. Hence I increased the rate to 34, I have also cut down the FiO2 to 55%, PEEP at 8. And tidal volumes the same. Patient remains on propofol at 25 mcg/kg/m, he is also on norepinephrine at 0.06 mcg/kg/m. Amiodarone at 0.5, patient had atrial fibrillation with RVR yesterday, he is known to have history of chronic atrial fibrillation. He is also on heparin drip. Patient is on vital HPI at 24 mL per hour. Chest x-ray is showing significant improvement in his right lower lobe atelectasis/possible pneumonia. Remains on antibiotics, cultures from his bronchoscopy and BAL are pending. WBC count is 4.9 hemoglobin is 12.2. PTT is therapeutic at 58. Electrolytes are normal, renal profile is improving with a BUN of 33 creatinine 1.46. Blood sugar is 171. Objective - Vital Signs Vital signs: Vital Signs Temp 98.0 F 05/19/21 08:00 Pulse 79 05/19/21 10:00 Resp 34 H 05/19/21 10:00 BP 105/78 05/19/21 10:00 Pulse Ox 96 05/19/21 10:00 Intake & Output 05/18/21 05/19/21 05/19/21 18:59 06:59 18:59 Intake Total 2048.328 1965.390 582.139 Output Total 1570 1245 355 Balance 478.328 720.390 227.139 Weight 89.8 kg 94 kg Intake: IV 900 900 300 Sodium Chloride 0.9% 1, 300 000 ml @ 100 mls/hr IV . Q10H [facility] Rx#:[id number] Sodium Chloride 0.9% 1, 600 900 300 000 ml @ 75 mls/hr IV . [id number] [facility] Rx#:[id number] Intake, IV Titration 754.328 687.390 258.139 Amount Heparin Sod,Pork in 0.45% 136.596 NaCl 25,000 unit In 0.45 % NaCl 1 250ml.bag @ 9 UNITS/KG/HR 10.002 mls/hr IV .Q24H [facility] Rx#: [id number] Immune Globulin ( 63.75 Gammagard) 10 gm In Empty Bag 1 bag @ Per Protocol 42.5 mls/hr IV .Q2H22M [facility] Rx#:[id number] Immune Globulin ( 65.167 Gammagard) 20 gm In Empty Bag 1 bag @ Per Protocol 42.5 mls/hr IV .Q4H43M [facility] Rx#:[id number] Magnesium Sulfate-D5w Pmx 100 1 gm In Dextrose/Water 1 100ml.bag @ 100 mls/hr IVPB Q1H [facility] Rx#: [id number] Norepinephrine 4 mg In 325.411 182.589 Sodium Chloride 0.9% 250 ml @ 0.05 MCG/KG/MIN 16. 935 mls/hr IV .Q15H [facility] Rx#:[id number] Piperacillin-Tazobactam 3 100 100 .375 gm In Sodium Chloride 0.9% 100 ml @ 25 mls/hr IVPB Q8HR [facility] Rx# :[id number] propofoL 1,000 mg In 300 268.205 58.139 Empty Bag 1 bag @ Titrate IV .Q0M [facility] Rx#: [id number] Tube Feeding 214 288 24 Other 180 90 Output: Urine 1570 1245 355 Other: Voiding Method Indwelling Catheter Indwelling Catheter Indwelling Catheter # Bowel Movements 1 ABP, PAP, CO, CI - Last Documented Arterial Blood Pressure 99/56 - Exam Physical Exam revealed a 70-year-old white male intubated, not in distress. Sedated. Head: Atraumatic, normocephalic. Endotracheal tube and orogastric tube are intact. HEENT:[Neck is supple.] [No neck masses.] [No thyromegaly.] [No JVD.] Chest: [Symmetrical chest expansion crackles at the bases. Cardiac: Irregular irregular rhythm, normal S1 and S2,, no S3 gallop, no murmur. Abdomen: [Soft, nontender, no megaly, no rebound, no guarding, normal bowel sounds.] Extremities: [No clubbing, no edema, no cyanosis.] Neurological Exam: Cannot assess, patient is sedated, intubated. Psychiatric: Cannot assess patient is sedated and intubated. Skin: No rashes. - Labs CBC & Chem 7: 05/19/21 03:50 05/19/21 03:50 Labs: Abnormal Lab Results - Last 24 Hours (Table) 05/18/21 05/18/21 05/18/21 Range/Units 12:54 17:08 19:58 WBC (3.8-10.6) k/uL RBC (4.30-5.90) m/uL Hgb (13.0-17.5) gm/dL Hct (39.0-53.0) % Neutrophils # (1.3-7.7) k/uL Lymphocytes # (1.0-4.8) k/uL APTT (22.0-30.0) sec ABG pH (7.35-7.45) ABG pCO2 (35-45) mmHg Chloride (98-107) mmol/L Carbon Dioxide (22-30) mmol/L BUN (9-20) mg/dL Creatinine (0.66-1.25) mg/dL Glucose (74-99) mg/dL POC Glucose (mg/dL) 182 H 168 H 144 H (75-99) mg/dL Albumin (3.5-5.0) g/dL 05/18/21 05/19/21 05/19/21 Range/Units 23:45 03:50 03:50 WBC 12.9 H (3.8-10.6) k/uL RBC 3.92 L (4.30-5.90) m/uL Hgb 12.2 L (13.0-17.5) gm/dL Hct 38.5 L (39.0-53.0) % Neutrophils # 11.4 H (1.3-7.7) k/uL Lymphocytes # 0.7 L (1.0-4.8) k/uL APTT (22.0-30.0) sec ABG pH (7.35-7.45) ABG pCO2 (35-45) mmHg Chloride 112 H (98-107) mmol/L Carbon Dioxide 19 L (22-30) mmol/L BUN 33 H (9-20) mg/dL Creatinine 1.46 H (0.66-1.25) mg/dL Glucose 183 H (74-99) mg/dL POC Glucose (mg/dL) 142 H (75-99) mg/dL Albumin 2.6 L (3.5-5.0) g/dL 05/19/21 05/19/21 05/19/21 Range/Units 03:50 05:35 06:20 WBC (3.8-10.6) k/uL RBC (4.30-5.90) m/uL Hgb (13.0-17.5) gm/dL Hct (39.0-53.0) % Neutrophils # (1.3-7.7) k/uL Lymphocytes # (1.0-4.8) k/uL APTT 58.1 H (22.0-30.0) sec ABG pH 7.26 L (7.35-7.45) ABG pCO2 50 H (35-45) mmHg Chloride (98-107) mmol/L Carbon Dioxide (22-30) mmol/L BUN (9-20) mg/dL Creatinine (0.66-1.25) mg/dL Glucose (74-99) mg/dL POC Glucose (mg/dL) 177 H (75-99) mg/dL Albumin (3.5-5.0) g/dL 05/19/21 Range/Units 08:06 WBC (3.8-10.6) k/uL RBC (4.30-5.90) m/uL Hgb (13.0-17.5) gm/dL Hct (39.0-53.0) % Neutrophils # (1.3-7.7) k/uL Lymphocytes # (1.0-4.8) k/uL APTT (22.0-30.0) sec ABG pH (7.35-7.45) ABG pCO2 (35-45) mmHg Chloride (98-107) mmol/L Carbon Dioxide (22-30) mmol/L BUN (9-20) mg/dL Creatinine (0.66-1.25) mg/dL Glucose (74-99) mg/dL POC Glucose (mg/dL) 171 H (75-99) mg/dL Albumin (3.5-5.0) g/dL Microbiology - Last 24 Hours (Table) 05/18/21 11:20 Gram Stain - Preliminary Bronchial Washings - Right Bronchial Washings Culture - Preliminary 05/12/21 14:15 Blood Culture - Final Blood No Growth after 144 hours 05/12/21 14:00 Blood Culture - Final Blood No Growth after 144 hours 05/18/21 11:20 Fungal Culture - Preliminary Bronchial Washings - Right 05/18/21 11:20 Acid Fast Bacilli Culture - Preliminary Bronchial Washings - Right 05/17/21 11:50 CSF Gram Stain - Preliminary Cerebral Spinal Fluid CSF Culture - Preliminary Assessment and Plan Assessment: Impression: 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 Areflexia, and sensory loss distally. With respiratory failure Right lower lobe pneumonia or atelectasis status post bronchoscopy with BAL, and suctioning of mucous plugs from the right mainstem bronchus, right middle lobe, and right lower lobe. Bronchoscopy done on 05/18/01, cultures are pending. In the meantime the patient is still on Zosyn. Hematuria, possible bladder malignancy or prostate malignancy being investigated by urology. Chronic atrial fibrillation, presently on heparin. And the patient is on amiodarone. Cardiology was consulted. [id number] smoking history. Benign essential hypertension. Type 2 diabetes. Chronic renal failure, baseline creatinine on admission was in the range of 1.4. Recommendation: Continue ventilatory support, patient was mechanically ventilated on 05/17/2021, vent settings this morning after adjustment he is now on assist control rate of 34 tidal volume 430 FiO2 55% PEEP at 8. Daily assessment of mental status, off sedation or at least on a lower dose of sedation. Hemodynamic support, patient is on a minimal dose of norepinephrine Lumbar puncture results were reviewed, consistent with Guillain-Bergman syndrome. IVIG to continue. GI and DVT prophylaxis. Enteral feeding/nutritional support. Patient is on vital HP at 24 mL per hour. Urology is following his hematuria, will eventually require cystoscopy. We will continue to follow Remains critically ill. Not ready for weaning at this point.. critical time is over 30 minutes, not including the time spent on procedures. Time with Patient: Greater than 30
[2021-05-19 11:38] LABS: Glucose,Whole Blood 177 mg/dL (75-99)
--- NOTE | 2021-05-19 12:43 | P.CRDCN ---
History of Present Illness History of present illness: HISTORY OF PRESENTING ILLNESS This is a pleasant 70-year-old is currently intubated and sedated on ventilator and history is supplied by chart. Patient had presented with progressive ascend ing weakness and respiratory distress and was found to have multifocal pneumonia as well as Guillain-Bergman syndrome. He does have a history of chronic atrial fibrillation and is on Eliquis 5 mg twice a day as well as metoprolol 50 mg twice a day at home. He has been intubated and has been on antibiotics with additional low dose of norepinephrine and therefore metoprolol has been discontinued. He has been in A. fib throughout the hospitalization with heart rates predominantly controlled however one in the A. fib with RVR yesterday. Patient was given amiodarone bolus and drip and heart rate is better controlled currently at 70. REVIEW OF SYSTEMS At the time of my exam: Unable to obtain secondary to sedation. PHYSICAL EXAMINATION Vital signs reviewed. CONSTITUTIONAL: No apparent distress, ill appearing on vent HEENT: Head is normocephalic. Pupils are equal, round. Sclerae anicteric. Mucous membranes of the mouth are moist. No JVD. No carotid bruit. +ETT CHEST EXAMINATION: Lungs are clear to auscultation. No chest wall tenderness is noted on palpation or with deep breathing. HEART EXAMINATION: Irregularly irregular. S1, S2 heard. No murmurs, gallops or rub. ABDOMEN: Soft, nontender. Positive bowel sounds. EXTREMITIES: 2+ peripheral pulses, no lower extremity edema and no calf tenderness. NEUROLOGIC EXAMINATION: Patient is sedated and intubated. ASSESSMENT 1. Acute hypoxic respiratory failure related to Guillain-Bergman syndrome 2. Right lower lobe pneumonia 3. Chronic atrial fibrillation previously RVR 05/18 however currently controlled ventricular rates 4. Hematuria with possible bladder malignancy, improved 5. Next tobacco abuse 6. Hypertension 7. Diabetes mellitus type 2 8. Hypotension on low-dose norepinephrine 9. Chronic kidney disease, appears at baseline PLAN Patient's main presentation appears related to Guillain-Bergman syndrome and pneumonia. Still borderline hypotensive on some vasopressors and continue to hold metoprolol. He has done well with amiodarone with improvement in heart rates. We will continue with oral amiodarone more for rate controlled on rhythm control. Tachycardia may be related to sedation level as well. Continue with IV heparin and hopefully change to Eliquis and monitor hematuria closely. Check 2-D echo. Further recommendations to follow. Past Medical History Past Medical History: Coronary Artery Disease (CAD), Diabetes Mellitus, Hyperlipidemia, Hypertension, Myocardial Infarction ([place]) Additional Past Medical History / Comment(s): abdominal hernia Last Myocardial Infarction Date:: 1972 History of Any Multi-Drug Resistant Organisms: None Reported Past Surgical History: Heart Catheterization Additional Past Surgical History / Comment(s): stomach surgery, was born with an upside down stomach Additional Past Anesthesia/Blood Transfusion Reaction / Comment(s): No previous transfusion Past Psychological History: No Psychological Hx Reported Smoking Status: Current every day smoker Past Alcohol Use History: None Reported Past Drug Use History: None Reported - Past Family History Mother Family Medical History: Diabetes Mellitus Medications and Allergies Home Medications Medication Instructions Recorded Confirmed Type Apixaban [Eliquis] 5 mg PO BID 05/26/20 05/12/21 History Atorvastatin Calcium [Lipitor] 80 mg PO HS 05/26/20 05/12/21 History Metoprolol Tartrate [Lopressor] 50 mg PO BID 05/26/20 05/12/21 History INSULIN ASPART (NovoLOG) [NovoLOG 5 unit SQ AC-BID 05/12/21 05/12/21 History (formulary)] Insulin Detemir (Levemir) [Levemir] 15 unit SQ BID 05/12/21 05/12/21 History Sertraline [Zoloft] 50 mg PO DAILY 05/12/21 05/12/21 History Sulfamethox-Tmp 800-160Mg [Bactrim 1 tab PO BID 05/12/21 05/12/21 History DS 800-160 mg] Tamsulosin [Flomax] 0.4 mg PO BID 05/12/21 05/12/21 History traMADol HCl [Ultram] 50 mg PO TID PRN 05/12/21 05/12/21 History Allergies Allergy/AdvReac Type Severity Reaction Status Date / Time cephalexin [From Keflex] Allergy Nausea & Verified 05/12/21 11:20 Vomiting & Diarrhea Physical Exam Vitals: Vital Signs Temp Pulse Pulse Resp BP BP Pulse Ox 05/19/21 12:00 97.7 F 80 34 H 112/79 94 L 05/19/21 11:45 81 33 H 112/79 94 L 05/19/21 11:30 80 35 H 111/78 94 L 05/19/21 11:15 77 35 H 106/73 93 L 05/19/21 11:00 83 35 H 126/83 94 L 05/19/21 10:45 84 35 H 123/85 95 05/19/21 10:30 85 47 H 111/82 95 05/19/21 10:15 71 34 H 107/80 97 05/19/21 10:00 79 34 H 105/78 96 05/19/21 09:45 78 34 H 101/75 96 05/19/21 09:30 74 34 H 106/75 96 05/19/21 09:15 75 34 H 107/77 95 05/19/21 09:00 85 34 H 121/82 95 05/19/21 08:45 87 34 H 117/76 96 05/19/21 08:30 87 34 H 114/73 96 05/19/21 08:15 92 34 H 110/82 96 05/19/21 08:00 98.0 F 89 78 34 H 108/79 97 05/19/21 07:45 93 30 H 113/77 97 05/19/21 07:30 91 30 H 117/74 96 05/19/21 07:15 89 31 H 115/77 97 05/19/21 07:00 95 30 H 111/72 97 05/19/21 06:45 92 30 H 112/77 96 05/19/21 06:30 90 31 H 113/76 96 05/19/21 06:15 94 30 H 108/78 96 05/19/21 06:00 85 30 H 113/80 96 05/19/21 05:45 89 30 H 112/79 96 05/19/21 05:30 96 30 H 111/74 96 05/19/21 05:15 96 31 H 106/73 96 05/19/21 05:00 91 25 H 106/73 96 05/19/21 04:45 91 34 H 113/78 96 05/19/21 04:30 92 30 H 111/69 96 05/19/21 04:15 93 29 H 108/73 96 05/19/21 04:00 98.8 F 93 32 H 104/70 95 05/19/21 03:45 89 30 H 91/67 95 05/19/21 03:30 89 30 H 103/64 96 05/19/21 03:15 98 30 H 106/80 94 L 05/19/21 03:00 98 30 H 105/72 94 L 05/19/21 02:45 92 30 H 107/74 94 L 05/19/21 02:30 92 30 H 94/69 95 05/19/21 02:15 93 30 H 109/77 95 05/19/21 02:00 90 30 H 101/72 95 05/19/21 01:45 96 30 H 94/69 95 05/19/21 01:30 94 30 H 97/69 96 05/19/21 01:15 89 30 H 97/69 95 05/19/21 01:00 97 30 H 95/66 96 05/19/21 00:45 102 H 30 H 95/66 95 05/19/21 00:30 105 H 30 H 95 05/19/21 00:15 101 H 30 H 95/66 95 05/19/21 00:00 99.2 F 99 30 H 86/67 94 L 05/18/21 23:45 105 H 33 H 86/67 95 05/18/21 23:30 105 H 33 H 86/67 94 L 05/18/21 23:15 101 H 33 H 86/67 94 L 05/18/21 23:00 86 86 30 H 101/65 101/65 94 L 05/18/21 22:45 110 H 94 30 H 101/65 87/56 93 L 05/18/21 22:30 121 H 30 H 101/65 94 L 05/18/21 22:15 128 H 30 H 101/65 94 L 05/18/21 22:00 112 H 29 H 98/72 94 L 05/18/21 21:45 120 H 30 H 98/72 93 L 05/18/21 21:30 110 H 30 H 98/72 93 L 05/18/21 21:15 112 H 29 H 98/72 93 L 05/18/21 21:00 109 H 29 H 95/74 93 L 05/18/21 20:45 110 H 25 H 95/74 92 L 05/18/21 20:30 112 H 29 H 95/74 93 L 05/18/21 20:15 102 H 30 H 95/74 92 L 05/18/21 20:00 99.5 F 106 H 30 H 95/67 93 L 05/18/21 19:00 100 31 H 92 L 05/18/21 18:45 99 33 H 92 L 05/18/21 18:30 100 29 H 92 L 05/18/21 18:15 97 30 H 98/75 92 L 05/18/21 18:00 100 F H 120 H 31 H 94 L 05/18/21 17:45 111 H 31 H 94 L 05/18/21 17:30 109 H 31 H 94 L 05/18/21 17:15 106 H 33 H 111/75 94 L 05/18/21 17:00 104 H 33 H 94 L 05/18/21 16:45 99 32 H 94 L 05/18/21 16:30 93 33 H 93 L 05/18/21 16:15 97 34 H 109/69 93 L 05/18/21 16:00 99.7 F H 93 30 H 95 05/18/21 15:45 104 H 96 31 H 95 05/18/21 15:30 101 H 32 H 95 05/18/21 15:15 98 30 H 95 05/18/21 15:00 93 30 H 95 05/18/21 14:45 96 30 H 95 05/18/21 14:30 95 34 H 95 05/18/21 14:15 91 30 H 101/69 95 05/18/21 14:00 102 H 33 H 95 05/18/21 13:45 94 34 H 95 05/18/21 13:30 92 33 H 95 05/18/21 13:15 98 30 H 99/68 95 05/18/21 13:00 81 34 H 95 05/18/21 12:45 96 96 30 H 95 Intake and Output 05/18/21 05/19/21 05/19/21 22:59 06:59 14:59 Intake Total 9369.360 7112.255 840.881 Output Total 1085 755 550 Balance 216.296 630.255 290.881 Intake: IV 600 600 450 Sodium Chloride 0.9% 1, 600 600 450 000 ml @ 75 mls/hr IV . [id number] [facility] Rx#:[id number] Intake, IV Titration 389.296 533.255 366.881 Amount Heparin Sod,Pork in 0.45% 136.596 NaCl 25,000 unit In 0.45 % NaCl 1 250ml.bag @ 9 UNITS/KG/HR 10.002 mls/hr IV .Q24H [facility] Rx#: [id number] Immune Globulin ( 63.75 Gammagard) 10 gm In Empty Bag 1 bag @ Per Protocol 42.5 mls/hr IV .Q2H22M [facility] Rx#:[id number] Magnesium Sulfate-D5w Pmx 200 1 gm In Dextrose/Water 1 100ml.bag @ 100 mls/hr IVPB Q1H [facility] Rx#: [id number] Norepinephrine 4 mg In 123.740 130.260 Sodium Chloride 0.9% 250 ml @ 0.05 MCG/KG/MIN 16. 935 mls/hr IV .Q15H [facility] Rx#:[id number] Piperacillin-Tazobactam 3 100 100 .375 gm In Sodium Chloride 0.9% 100 ml @ 25 mls/hr IVPB Q8HR [facility] Rx# :[id number] propofoL 1,000 mg In 201.806 166.399 66.881 Empty Bag 1 bag @ Titrate IV .Q0M [facility] Rx#: [id number] Tube Feeding 192 192 24 Other 120 60 Output: Urine 1085 755 550 Other: Voiding Method Indwelling Catheter Indwelling Catheter Indwelling Catheter # Bowel Movements 1 Weight 94 kg ABP, PAP, CO, CI - Last 8 Hours Arterial Blood Pressure 104/58 Arterial Blood Pressure 102/57 Arterial Blood Pressure 101/54 Arterial Blood Pressure 93/51 Arterial Blood Pressure 99/56 Arterial Blood Pressure 116/61 Arterial Blood Pressure 116/65 Arterial Blood Pressure 102/56 Arterial Blood Pressure 99/56 Arterial Blood Pressure 97/59 Arterial Blood Pressure 94/56 Arterial Blood Pressure 97/53 Arterial Blood Pressure 97/56 Arterial Blood Pressure 116/63 Arterial Blood Pressure 107/57 Arterial Blood Pressure 119/62 Arterial Blood Pressure 109/58 Arterial Blood Pressure 107/59 Arterial Blood Pressure 112/61 Arterial Blood Pressure 107/57 Arterial Blood Pressure 109/56 Arterial Blood Pressure 107/58 Arterial Blood Pressure 106/57 Arterial Blood Pressure 103/57 Arterial Blood Pressure 107/56 Arterial Blood Pressure 108/56 Arterial Blood Pressure 106/57 Arterial Blood Pressure 99/58 Arterial Blood Pressure 97/54 Arterial Blood Pressure 104/53 Results 05/19/21 03:50 05/19/21 03:50 Cardiac Enzymes 05/19/21 Range/Units 03:50 AST 30 (17-59) U/L Coagulation 05/19/21 Range/Units 06:20 APTT 58.1 H (22.0-30.0) sec CBC 05/19/21 Range/Units 03:50 WBC 12.9 H (3.8-10.6) k/uL RBC 3.92 L (4.30-5.90) m/uL Hgb 12.2 L (13.0-17.5) gm/dL Hct 38.5 L (39.0-53.0) % Plt Count 202 (150-450) k/uL Comprehensive Metabolic Panel 05/19/21 Range/Units 03:50 Sodium 139 (137-145) mmol/L Potassium 4.3 (3.5-5.1) mmol/L Chloride 112 H (98-107) mmol/L Carbon Dioxide 19 L (22-30) mmol/L BUN 33 H (9-20) mg/dL Creatinine 1.46 H (0.66-1.25) mg/dL Glucose 183 H (74-99) mg/dL Calcium 8.5 (8.4-10.2) mg/dL AST 30 (17-59) U/L ALT 21 (4-49) U/L Alkaline Phosphatase 88 (38-126) U/L Total Protein 7.1 (6.3-8.2) g/dL Albumin 2.6 L (3.5-5.0) g/dL Current Medications Generic Name Dose Route Start Last Admin Trade Name Freq PRN Reason Stop Dose Admin Acetaminophen 650 mg 05/12/21 14:56 05/18/21 03:52 Acetaminophen Tab 325 Mg Tab PO 650 mg Q6HR PRN Administration Mild Pain or Fever > 100.5 Atorvastatin Calcium 80 mg 05/12/21 21:00 05/18/21 20:07 Atorvastatin 80 Mg Tab PO 80 mg HS [facility] Administration Chlorhexidine Gluconate 15 ml 05/17/21 21:00 05/19/21 08:16 Chlorhexidine Gluconate 15 Ml Cup MUCOUS MEM 15 ml BID [facility] Administration Folic Acid 1 mg 05/15/21 14:15 05/19/21 08:17 Folic Acid 1 Mg Tab PO 1 mg DAILY [facility] Administration Heparin Sodium (Porcine) 0 unit 05/14/21 13:44 05/14/21 23:00 Heparin Sodium 1,000 Un/Ml (10ml Vl) IV 2,778 unit PER PROTOCOL PRN Administration Low PTT Protocol Hydromorphone HCl 0.5 mg 05/13/21 21:59 05/14/21 17:47 Hydromorphone 1 Mg/Ml 1 Ml Syringe IVP 0.5 mg Q4HR PRN Administration Pain Heparin Sodium/Sodium Chloride 250 mls @ 10.002 mls/hr 05/14/21 13:45 05/19/21 01:07 25,000 unit/ Sodium Chloride IV 6 units/kg/hr .Q24H [facility] 6.668 mls/hr Administration Protocol 9 UNITS/KG/HR Immune Globulin 20 gm/ IV 200 mls @ 42.5 mls/hr 05/19/21 09:00 05/19/21 08:47 Solution IV 05/19/21 13:42 0.5 ml/hr .Q4H43M [facility] 0.5 mls/hr Administration Protocol Per Protocol Immune Globulin 10 gm/ IV 100 mls @ 42.5 mls/hr 05/19/21 14:00 Solution IV 05/19/21 16:21 .Q2H22M [facility] Protocol Per Protocol Norepinephrine Bitartrate 4 mg 254 mls @ 16.935 mls/hr 05/17/21 10:15 05/19/21 06:28 / Sodium Chloride IV 0.06 mcg/kg/min .Q15H [facility] 20.323 mls/hr Administration Protocol 0.05 MCG/KG/MIN Propofol 1,000 mg/ IV Solution 100 mls @ 0 mls/hr 05/17/21 10:00 05/19/21 11:25 IV 40 mcg/kg/min .Q0M [facility] 22.56 mls/hr Titration Protocol Titrate Sodium Chloride 1,000 mls @ 75 mls/hr 05/16/21 09:00 05/19/21 03:56 Saline 0.9% IV Not Given .[id number] [facility] Piperacillin Sod/Tazobactam 100 mls @ 25 mls/hr 05/18/21 08:00 05/19/21 08:15 Sod 3.375 gm/ Sodium Chloride IVPB 25 mls/hr Q8HR [facility] Administration Amiodarone HCl 450 mg/ 250 mls @ 16.667 mls/hr 05/19/21 04:30 05/19/21 04:14 Dextrose/Water IV 05/19/21 22:29 0.5 mg/min .Q15H [facility] 16.667 mls/hr Administration Protocol 0.5 MG/MIN Insulin Aspart 0 unit 05/18/21 16:00 05/19/21 11:49 Insulin Aspart (Novolog) 100 Unit/Ml Vial SQ 3 unit Q4HR [facility] Administration Protocol Insulin Detemir 10 unit 05/17/21 21:00 05/18/21 20:07 Insulin Detemir (Levemir) 100 Unit/Ml Syr SQ 10 unit HS [facility] Administration Metoprolol Tartrate 50 mg 05/12/21 21:00 05/19/21 08:17 Metoprolol Tartrate 50 Mg Tab PO 50 mg BID [facility] Administration Miscellaneous Information 1 each 05/17/21 08:22 Magnesium Replacement Protocol 1 Each Misc MISCELLANE DAILY PRN Per Protocol Protocol Naloxone HCl 0.2 mg 05/12/21 14:56 Naloxone 0.4 Mg/Ml 1 Ml Vial IV Q2M PRN Opioid Reversal Nicotine 1 patch 05/13/21 09:00 05/19/21 08:17 Nicotine 14mg/24hr Patch TRANSDERM 1 patch DAILY [facility] Administration Ondansetron HCl 4 mg 05/13/21 05:34 05/13/21 05:41 Ondansetron 4 Mg/2 Ml Vial IVP 4 mg Q6HR PRN Administration Nausea And Vomiting Pantoprazole Sodium 40 mg 05/18/21 09:00 05/19/21 08:16 Pantoprazole 40 Mg/10 Ml Vial IVP 40 mg DAILY [facility] Administration Pyridoxine HCl 50 mg 05/18/21 10:00 05/19/21 08:27 Pyridoxine 50 Mg Tab PO 50 mg DAILY [facility] Administration Sertraline HCl 50 mg 05/13/21 09:00 05/19/21 08:27 Sertraline 50 Mg Tab PO 50 mg DAILY [facility] Administration Sodium Chloride 2 spray 05/16/21 17:40 05/16/21 18:00 Sodium Chloride 0.65% Nasal [place] 44 Ml Btl NASAL 2 spray QID PRN Administration Dry Nasal Passages Tramadol HCl 50 mg 05/12/21 14:58 05/15/21 13:35 Tramadol 50 Mg Tab PO 50 mg TID PRN Administration Pain Intake and Output 05/18/21 05/19/21 05/19/21 22:59 06:59 14:59 Intake Total 3746.564 9932.255 840.881 Output Total 1085 755 550 Balance 216.296 630.255 290.881 Intake: IV 600 600 450 Sodium Chloride 0.9% 1, 600 600 450 000 ml @ 75 mls/hr IV . [id number] [facility] Rx#:[id number] Intake, IV Titration 389.296 533.255 366.881 Amount Heparin Sod,Pork in 0.45% 136.596 NaCl 25,000 unit In 0.45 % NaCl 1 250ml.bag @ 9 UNITS/KG/HR 10.002 mls/hr IV .Q24H [facility] Rx#: [id number] Immune Globulin ( 63.75 Gammagard) 10 gm In Empty Bag 1 bag @ Per Protocol 42.5 mls/hr IV .Q2H22M [facility] Rx#:[id number] Magnesium Sulfate-D5w Pmx 200 1 gm In Dextrose/Water 1 100ml.bag @ 100 mls/hr IVPB Q1H [facility] Rx#: [id number] Norepinephrine 4 mg In 123.740 130.260 Sodium Chloride 0.9% 250 ml @ 0.05 MCG/KG/MIN 16. 935 mls/hr IV .Q15H [facility] Rx#:[id number] Piperacillin-Tazobactam 3 100 100 .375 gm In Sodium Chloride 0.9% 100 ml @ 25 mls/hr IVPB Q8HR [facility] Rx# :[id number] propofoL 1,000 mg In 201.806 166.399 66.881 Empty Bag 1 bag @ Titrate IV .Q0M [facility] Rx#: [id number] Tube Feeding 192 192 24 Other 120 60 Output: Urine 1085 755 550 Other: Voiding Method Indwelling Catheter Indwelling Catheter Indwelling Catheter # Bowel Movements 1 Weight 94 kg 05/19/21 03:50 05/19/21 03:50
[2021-05-19] MEDS: AMIODARONE 200 MG TAB PO SCH ×2 (13:25→19:57)
[2021-05-19] MEDS ORDERED: IMMUNE GLOBULIN (GAMMAGARD) 10 GM in EMPTY BAG 1 BAG IV ONE (14:00)
--- NOTE | 2021-05-19 14:41 | P.PN ---
Subjective From records Patient is a 70-year-old male with a known history of hypertension, hyperlipidemia, diabetes type 2 insulin-dependent, history of TX status post cardiac catheterization, currently everyday smoker and BPH presented to ER with complaints of left hip pain and also left shoulder pain. Pain gets worse with movement. Patient denies any recent falls. Patient initially presented to ER and had CT abdominal pelvis which showed moderate bilateral hydronephrosis and hydroureter. This could relate to reflux. Appearance not changed compared with exam. Dilated gallbladder increased compared to holograms history of cholecystitis. There are few calcified gallstones. Pancreatic calcifications appear unchanged and consistent with chronic pancreatitis. Sigmoid diverticulosis hypertrophic changes in the urinary bladder similar to old exam. Nodular density at the base of the bladder could be enlarged prostate or bladder mass. Unchanged. Enlarged prostate. There is a 12 mm stellate nodule in the subpleural lateral right lower lobe that appears to be new compared to old exam. Follow-up recommended. X-ray of the shoulder no acute fracture or dislocation. Moderate narrowing and mild to moderate spurring at the acromioclavicular joint is more prominent from prior. Hip x-ray showed mild to moderate degenerative joint disease. Laboratory data showed sodium 135 potassium 4.3 chloride 102 bicarb is 21 BUN 20 and creatinine 1.47 blood sugar is 267 Urinalysis showed large blood nitrate negative and large leukocyte esterase with elevated RBCs and WBCs. WBC 11.5 hemoglobin 14.3 and platelets 277. Coronavirus PCR not detected. 05/13/2021 Patient is currently lying in the bed. Awake alert and still complaining of left lower abdominal pain and hip pain. X-ray of the hip showed mild degenerative changes without acute fracture or dislocation. Overlying soft tissue appears unremarkable. Vascular calcifications noted. Otherwise no acute process identified. Patient admitted on pain management. Urology has seen the patient and recommend outpatient follow-up for cystoscopy. Resume Eliquis at this time. PT OT consult and continue with pain management. Subjective: resuming the care from above 05/14/2021 This is a pleasant 70 years old male who presents on 05/12 for limb pain and inability to walk. Patient complains from weakness in all 4 extremities but more pronounced in the left leg as he states he barely can lift it off the bed. Also he has decreased sensation when examined his left leg. However he complains also to some degree of weakness from all 4 extremities motor he could not move his both arms above his head however passively I could move them up and patient had good tone in his muscles and he could hold them up above his head but then he will drop down once released Patient denies any abdominal pain today and he states that his hematuria has been cleared today back to yellow urine. Patient also feels generally weak and he might need to go to rehab. Patient hematuria problem is not in the room and he has his urologist seen prior to hospitalization and he is supposed to get stress test with thermodynamicist this, the Friday as part of preop evaluation. Also patient states that he was on baby aspirin at home but he ran out of it about one week prior to hospitalization. Also he is on Eliquis Patient told me that he has A. fib and that's why he takes Eliquis at home and that has been taking Eliquis and aspirated one week ago Subjective: Resuming the care of the patient again starting to 05/18/2021, after Dr. Jefferson. Patient currently in the ICU intubated and sedated. 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 With pulmonary/critical care team following him closely and help with vent management, today his FiO2 increased 50% up to 8% after pO2 was low 76. Rest of ABG was normal. He remains on PEEP of 8. Also patient is receiving IVIG. Today's the third dose. His lumbar puncture was consistent with his Gullian Juan syndrome with elevated opening up pressure at 30 cm of water . Also RBCs high 118, decreased protein 148, glucose is 104. Nucleated cells/WBC 1 only. Also patient developing low-grade fever and chest x-ray showing marked lower lobe infiltrate and his antibiotics was adjustment today ceftriaxone and to Zosyn. Patient remains critically ill. 05/19/2021 Patient re also he is developing hypotension requiring Levophed however he needs this dose today at 0.06 g per KG per minute. guerita in the ICU in critical condition intubated and sedated with pulmonary/critical care team are following him closely. Patient is developing respiratory failure secondary to his Gullina- Berri syndrome. And the neurology on the case and he is receiving IVIG He is a known case of A. fib on metoprolol and Eliquis, which was changed to he rabia drip because he needed lumbar puncture. Metoprolol was held once he needed Levophed , so today he developed A. fib and RVR which is currently controlled with amiodarone 400 mg twice a day with thermodynamicist consulted and recommended echocardiogram. Also patient is on Zosyn for right basal versus bilateral basal pneumonia, also shown on today's chest x-ray. Remains intubated with FiO2 lower today to 55%, remains on PEEP of 8 like yesterday. He has no fever today. Leukocytosis slightly up 12.9, creatinine is stable at 1.4. Objective - Vital Signs Vital signs: Vital Signs Temp 97.7 F 05/19/21 12:00 Pulse 80 05/19/21 12:00 Resp 34 H 05/19/21 12:00 BP 112/79 05/19/21 12:00 Pulse Ox 94 L 05/19/21 12:00 Intake & Output 05/18/21 05/19/21 05/19/21 18:59 06:59 18:59 Intake Total 2048.328 1965.390 840.881 Output Total 1570 1245 550 Balance 478.328 720.390 290.881 Weight 89.8 kg 94 kg Intake: IV 900 900 450 Sodium Chloride 0.9% 1, 300 000 ml @ 100 mls/hr IV . Q10H [facility] Rx#:[id number] Sodium Chloride 0.9% 1, 600 900 450 000 ml @ 75 mls/hr IV . [id number] [facility] Rx#:[id number] Intake, IV Titration 754.328 687.390 366.881 Amount Heparin Sod,Pork in 0.45% 136.596 NaCl 25,000 unit In 0.45 % NaCl 1 250ml.bag @ 9 UNITS/KG/HR 10.002 mls/hr IV .Q24H [facility] Rx#: [id number] Immune Globulin ( 63.75 Gammagard) 10 gm In Empty Bag 1 bag @ Per Protocol 42.5 mls/hr IV .Q2H22M [facility] Rx#:[id number] Immune Globulin ( 65.167 Gammagard) 20 gm In Empty Bag 1 bag @ Per Protocol 42.5 mls/hr IV .Q4H43M [facility] Rx#:[id number] Magnesium Sulfate-D5w Pmx 200 1 gm In Dextrose/Water 1 100ml.bag @ 100 mls/hr IVPB Q1H [facility] Rx#: [id number] Norepinephrine 4 mg In 325.411 182.589 Sodium Chloride 0.9% 250 ml @ 0.05 MCG/KG/MIN 16. 935 mls/hr IV .Q15H [facility] Rx#:[id number] Piperacillin-Tazobactam 3 100 100 .375 gm In Sodium Chloride 0.9% 100 ml @ 25 mls/hr IVPB Q8HR [facility] Rx# :[id number] propofoL 1,000 mg In 300 268.205 66.881 Empty Bag 1 bag @ Titrate IV .Q0M [facility] Rx#: [id number] Tube Feeding 214 288 24 Other 180 90 Output: Urine 1570 1245 550 Other: Voiding Method Indwelling Catheter Indwelling Catheter Indwelling Catheter # Bowel Movements 1 ABP, PAP, CO, CI - Last Documented Arterial Blood Pressure 104/58 - Exam -GENERAL: The patient is intubated and sedated HEENT: Pupils are round and equally reacting to light. EOMI. No scleral icterus. No conjunctival pallor. Normocephalic, atraumatic. No pharyngeal erythema. No thyromegaly. CARDIOVASCULAR: S1 and S2 present. No murmurs, rubs, or gallops. PULMONARY: Chest is clear to auscultation, no wheezing or crackles. ABDOMEN: Soft, nontender, nondistended, normoactive bowel sounds. No palpable organomegaly. MUSCULOSKELETAL: No joint swelling or deformity. EXTREMITIES: No cyanosis, clubbing, or pedal edema. -NEUROLOGICAL: Examination is limited by patient intubation. Pupils are equal and reactive to light. No facial asymmetry. Absent reflexes SKIN: No rashes. no petechiae. - Labs CBC & Chem 7: 05/19/21 03:50 05/19/21 03:50 Labs: Abnormal Lab Results - Last 24 Hours (Table) 05/18/21 05/18/21 05/18/21 Range/Units 17:08 19:58 23:45 WBC (3.8-10.6) k/uL RBC (4.30-5.90) m/uL Hgb (13.0-17.5) gm/dL Hct (39.0-53.0) % Neutrophils # (1.3-7.7) k/uL Lymphocytes # (1.0-4.8) k/uL APTT (22.0-30.0) sec ABG pH (7.35-7.45) ABG pCO2 (35-45) mmHg Chloride (98-107) mmol/L Carbon Dioxide (22-30) mmol/L BUN (9-20) mg/dL Creatinine (0.66-1.25) mg/dL Glucose (74-99) mg/dL POC Glucose (mg/dL) 168 H 144 H 142 H (75-99) mg/dL Albumin (3.5-5.0) g/dL 05/19/21 05/19/21 05/19/21 Range/Units 03:50 03:50 03:50 WBC 12.9 H (3.8-10.6) k/uL RBC 3.92 L (4.30-5.90) m/uL Hgb 12.2 L (13.0-17.5) gm/dL Hct 38.5 L (39.0-53.0) % Neutrophils # 11.4 H (1.3-7.7) k/uL Lymphocytes # 0.7 L (1.0-4.8) k/uL APTT (22.0-30.0) sec ABG pH (7.35-7.45) ABG pCO2 (35-45) mmHg Chloride 112 H (98-107) mmol/L Carbon Dioxide 19 L (22-30) mmol/L BUN 33 H (9-20) mg/dL Creatinine 1.46 H (0.66-1.25) mg/dL Glucose 183 H (74-99) mg/dL POC Glucose (mg/dL) 177 H (75-99) mg/dL Albumin 2.6 L (3.5-5.0) g/dL 05/19/21 05/19/21 05/19/21 Range/Units 05:35 06:20 08:06 WBC (3.8-10.6) k/uL RBC (4.30-5.90) m/uL Hgb (13.0-17.5) gm/dL Hct (39.0-53.0) % Neutrophils # (1.3-7.7) k/uL Lymphocytes # (1.0-4.8) k/uL APTT 58.1 H (22.0-30.0) sec ABG pH 7.26 L (7.35-7.45) ABG pCO2 50 H (35-45) mmHg Chloride (98-107) mmol/L Carbon Dioxide (22-30) mmol/L BUN (9-20) mg/dL Creatinine (0.66-1.25) mg/dL Glucose (74-99) mg/dL POC Glucose (mg/dL) 171 H (75-99) mg/dL Albumin (3.5-5.0) g/dL 05/19/21 Range/Units 11:37 WBC (3.8-10.6) k/uL RBC (4.30-5.90) m/uL Hgb (13.0-17.5) gm/dL Hct (39.0-53.0) % Neutrophils # (1.3-7.7) k/uL Lymphocytes # (1.0-4.8) k/uL APTT (22.0-30.0) sec ABG pH (7.35-7.45) ABG pCO2 (35-45) mmHg Chloride (98-107) mmol/L Carbon Dioxide (22-30) mmol/L BUN (9-20) mg/dL Creatinine (0.66-1.25) mg/dL Glucose (74-99) mg/dL POC Glucose (mg/dL) 177 H (75-99) mg/dL Albumin (3.5-5.0) g/dL Microbiology - Last 24 Hours (Table) 05/17/21 11:50 CSF Gram Stain - Preliminary Cerebral Spinal Fluid CSF Culture - Preliminary 05/18/21 11:20 Gram Stain - Preliminary Bronchial Washings - Right Bronchial Washings Culture - Preliminary 05/12/21 14:15 Blood Culture - Final Blood No Growth after 144 hours 05/12/21 14:00 Blood Culture - Final Blood No Growth after 144 hours 05/18/21 11:20 Fungal Culture - Preliminary Bronchial Washings - Right 05/18/21 11:20 Acid Fast Bacilli Culture - Preliminary Bronchial Washings - Right Assessment and Plan Assessment: 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 Needs cystoscopy as an outpatient Chronic A. fib and RVR Bilateral moderate hydronephrosis Hematuria resolved now. Acute urinary tract infection. on antibiotic Hyperglycemia with uncontrolled diabetes type 2 insulin-dependent Hypomagnesemia Hypovolemic hyponatremia Acute kidney injury likely prerenal Chronic kidney disease stage III Paroxysmal atrial fibrillation on anticoagulation with Eliquis Hypertension Hyperlipidemia History of TX status post cardiac catheterization. Plan: This is a pleasant 70 years old male who presents with hematuria and generalized weakness and generalized pain. Left leg weakness and decreased sensation. Continue mechanical ventilation with the help of the pulmonary/critical care team will follow him closely Continue with IVIG as per neurology team will follow him closely as well Continue heparin drip while holding Eliquis due to his history of A. fib. Continue with amiodarone. Cardiology on the case Continue with syn Urology on the case and patient informed to need cystoscopy and possible TURP as an outpatient and he verbalized understanding and acceptance. The risk of cancer explained Prior to intubation Follow-up with thermodynamicist Dr. Snow on this coming Friday for stress test. He is discharged before that. Patient informed and he agrees. Labs and medication were reviewed.. Continue same treatment. Continue with symptomatic treatment. Resume home medication. Monitor lytes and vitals. DVT and GI prophylaxis. Further recommendations as per clinical course of the patient DVT prophylaxis: On heparin drip GI Prophylaxis: Pepcid PT/OT: deferred Prognosis is guarded
[2021-05-19 15:38] LABS: Glucose,Whole Blood 190 mg/dL (75-99)
[2021-05-19 19:39] LABS: Glucose,Whole Blood 126 mg/dL (75-99)
[2021-05-19] MEDS: ATORVASTATIN 80 MG TAB PO SCH (19:57)
[2021-05-19] MEDS: INSULIN DETEMIR (LEVEMIR) 100 UNIT/ML SYR SQ SCH (20:04)
--- NOTE | 2021-05-19 23:42 | P.PN ---
Subjective Progress Note Date: 05/18/21 Patient was seen for a follow-up. Patient continues to be intubated. Patient is on Levophed 7 mcg/mcg/m. Also on propofol 50 mcg/kg/m. Patient sedated at this time. Patient has tolerated IVIG very well. Today is the 4/5 dose of IVIG. Patient is tolerating it well physically, although patient is sedated. Objective - Vital Signs Vital signs: Vital Signs Temp 98.8 F 05/19/21 20:00 Pulse 84 05/19/21 23:00 Resp 34 H 05/19/21 23:00 BP 99/63 05/19/21 23:00 Pulse Ox 91 L 05/19/21 23:00 Intake & Output 05/19/21 05/19/21 05/20/21 06:59 18:59 06:59 Intake Total 0528.812 9651.730 564.838 Output Total 1245 1375 500 Balance 720.390 237.730 64.838 Weight 94 kg Intake: IV 900 975 300 Sodium Chloride 0.9% 1, 900 975 300 000 ml @ 75 mls/hr IV . [id number] [facility] Rx#:[id number] Intake, IV Titration 687.390 613.730 138.838 Amount Heparin Sod,Pork in 0.45% 136.596 NaCl 25,000 unit In 0.45 % NaCl 1 250ml.bag @ 9 UNITS/KG/HR 10.002 mls/hr IV .Q24H [facility] Rx#: [id number] Magnesium Sulfate-D5w Pmx 200 1 gm In Dextrose/Water 1 100ml.bag @ 100 mls/hr IVPB Q1H [facility] Rx#: [id number] Norepinephrine 4 mg In 182.589 213.73 38.838 Sodium Chloride 0.9% 250 ml @ 0.05 MCG/KG/MIN 16. 935 mls/hr IV .Q15H [facility] Rx#:[id number] Piperacillin-Tazobactam 3 100 100 .375 gm In Sodium Chloride 0.9% 100 ml @ 25 mls/hr IVPB Q8HR [facility] Rx# :[id number] propofoL 1,000 mg In 268.205 100.000 100.000 Empty Bag 1 bag @ Titrate IV .Q0M [facility] Rx#: [id number] Tube Feeding 288 24 96 Other 90 30 Output: Urine 1245 1375 500 Other: Voiding Method Indwelling Catheter Indwelling Catheter Indwelling Catheter # Bowel Movements 1 ABP, PAP, CO, CI - Last Documented Arterial Blood Pressure 112/59 - Exam Patient is intubated, sedated. Exam limited. Pupils are round and reacting. Patient is areflexic. - Labs CBC & Chem 7: 05/19/21 03:50 05/19/21 03:50 Labs: Abnormal Lab Results - Last 24 Hours (Table) 05/18/21 05/19/21 05/19/21 Range/Units 23:45 03:50 03:50 WBC 12.9 H (3.8-10.6) k/uL RBC 3.92 L (4.30-5.90) m/uL Hgb 12.2 L (13.0-17.5) gm/dL Hct 38.5 L (39.0-53.0) % Neutrophils # 11.4 H (1.3-7.7) k/uL Lymphocytes # 0.7 L (1.0-4.8) k/uL APTT (22.0-30.0) sec ABG pH (7.35-7.45) ABG pCO2 (35-45) mmHg Chloride 112 H (98-107) mmol/L Carbon Dioxide 19 L (22-30) mmol/L BUN 33 H (9-20) mg/dL Creatinine 1.46 H (0.66-1.25) mg/dL Glucose 183 H (74-99) mg/dL POC Glucose (mg/dL) 142 H (75-99) mg/dL Albumin 2.6 L (3.5-5.0) g/dL 05/19/21 05/19/21 05/19/21 Range/Units 03:50 05:35 06:20 WBC (3.8-10.6) k/uL RBC (4.30-5.90) m/uL Hgb (13.0-17.5) gm/dL Hct (39.0-53.0) % Neutrophils # (1.3-7.7) k/uL Lymphocytes # (1.0-4.8) k/uL APTT 58.1 H (22.0-30.0) sec ABG pH 7.26 L (7.35-7.45) ABG pCO2 50 H (35-45) mmHg Chloride (98-107) mmol/L Carbon Dioxide (22-30) mmol/L BUN (9-20) mg/dL Creatinine (0.66-1.25) mg/dL Glucose (74-99) mg/dL POC Glucose (mg/dL) 177 H (75-99) mg/dL Albumin (3.5-5.0) g/dL 05/19/21 05/19/21 05/19/21 Range/Units 08:06 11:37 15:37 WBC (3.8-10.6) k/uL RBC (4.30-5.90) m/uL Hgb (13.0-17.5) gm/dL Hct (39.0-53.0) % Neutrophils # (1.3-7.7) k/uL Lymphocytes # (1.0-4.8) k/uL APTT (22.0-30.0) sec ABG pH (7.35-7.45) ABG pCO2 (35-45) mmHg Chloride (98-107) mmol/L Carbon Dioxide (22-30) mmol/L BUN (9-20) mg/dL Creatinine (0.66-1.25) mg/dL Glucose (74-99) mg/dL POC Glucose (mg/dL) 171 H 177 H 190 H (75-99) mg/dL Albumin (3.5-5.0) g/dL 05/19/21 Range/Units 19:37 WBC (3.8-10.6) k/uL RBC (4.30-5.90) m/uL Hgb (13.0-17.5) gm/dL Hct (39.0-53.0) % Neutrophils # (1.3-7.7) k/uL Lymphocytes # (1.0-4.8) k/uL APTT (22.0-30.0) sec ABG pH (7.35-7.45) ABG pCO2 (35-45) mmHg Chloride (98-107) mmol/L Carbon Dioxide (22-30) mmol/L BUN (9-20) mg/dL Creatinine (0.66-1.25) mg/dL Glucose (74-99) mg/dL POC Glucose (mg/dL) 126 H (75-99) mg/dL Albumin (3.5-5.0) g/dL Microbiology - Last 24 Hours (Table) 05/18/21 11:20 Acid Fast Bacilli Smear - Final Bronchial Washings - Right Acid Fast Bacilli Culture - Preliminary 05/18/21 11:20 Gram Stain - Preliminary Bronchial Washings - Right Bronchial Washings Culture - Preliminary Gram Neg Bacilli 05/17/21 11:50 CSF Gram Stain - Preliminary Cerebral Spinal Fluid CSF Culture - Preliminary Assessment and Plan Assessment: * Guillain-Bergman syndrome. Patient has presented with rapidly progressive proximal and distal weakness of upper and lower extremities, diffuse areflexia, and sensory loss distally in the hands and in bilateral legs. Patient has developed progressive respiratory difficulty, with respiratory failure and now has been intubated. * Ventilator-dependent respiratory failure due to above. * Acute UTI. * Diabetes, poorly controlled * Mild to moderate renal insufficiency. * Hypertension * Atrial fibrillation, currently on Eliquis. * Tobacco use 1 pack per day for 30 years. Plan: * Patient has been intubated for respiratory failure from [facility]. * Continue IVIG. Today patient has received day #4/5 of IVIG. * Spinal fluid examination revealed CSF proteins 148/60, glucose 104, WBC 1, RBC 118. * Patient's CBC is normal. CMP with BUN 40, creatinine 1.40, both are stable. Hepatic panel normal. * MRI of brain revealed no acute stroke. Mild to moderate diffuse cerebral atrophy and moderate chronic small vessel ischemic changes. No suspicious enhancement noted. I personally reviewed MRI of the brain and agree with the findings. * MRI of the cervical spine with and without contrast was suboptimal study without definitive abnormal cord signal or enhancement in the cervical spine. There is central slightly T2 hyperintense nonenhancing lesion in the upper thoracic spine over 1.8 cm segment favoring a focal syrinx. I personally reviewed MRI of the cervical spine. The lesion mentioned appeared artifactual in nature. Again, this lesion would not explain any symptoms in the upper extremities for sure. * Continue IVIG 0.4 g/kg per day for total of 5 days. * Eliquis on hold since 05/14/2021. May resume oral anticoagulants post lumbar puncture. * Blood tests including TA negative B12 308, folic acid 6.3, TSH 3.25, hemoglobin A1c 10.6, ESR 28. IgG 1398, IgA is 513/350, IgM 73.9 normal. (No IgA deficiency). Immunofixation electrophoresis negative for monoclonal protein. Aldolase mildly elevated 7.9/7.6. Serum protein electrophoresis also negative for monoclonal gammopathy. Vitamin B6 is low 6, methylmalonic acid 0.16, vitamin B1 83 normal. Lyme titer negative. * Patient started on folic acid 1 mg daily and vitamin B12 1000 g IM daily for 3 days and vitamin B6 50 mg daily. * Patient currently on ceftriaxone for UTI. * Telemetry monitoring to rule out any arrhythmia. * Patient on heparin IV for DVT prophylaxis.
[2021-05-19 23:50] LABS: Glucose,Whole Blood 138 mg/dL (75-99)
[2021-05-20] MEDS: HEPARIN SOD,PORK IN 0.45% NACL 25,000 UNIT in 0.45% NACL 1 250ML.BAG IV SCH (01:25)
--- NOTE | 2021-05-20 01:44 | P.PN ---
Subjective Progress Note Date: 05/19/21 05/19/2021: This is a telemedicine neurology follow performed today on 05/19/2021. Patient continues to be sedated on propofol 40 g. Patient is nonresponsive because of being on sedation. Case discussed with the nurse. Patient was seen for a follow-up. Patient continues to be intubated. Patient is on Levophed 7 mcg/mcg/m. Also on propofol 50 mcg/kg/m. Patient sedated at this time. Patient has tolerated IVIG very well. Today is the 4/5 dose of IVIG. Patient is tolerating it well physically, although patient is sedated. Objective - Vital Signs Vital signs: Vital Signs Temp 98.7 F 05/20/21 00:00 Pulse 80 05/20/21 01:00 Resp 34 H 05/20/21 01:00 BP 93/68 05/20/21 01:00 Pulse Ox 92 L 05/20/21 01:00 Intake & Output 05/19/21 05/19/21 05/20/21 06:59 18:59 06:59 Intake Total 2832.082 9947.730 986.307 Output Total 1245 1375 650 Balance 720.390 237.730 336.307 Weight 94 kg Intake: IV 900 975 375 Sodium Chloride 0.9% 1, 900 975 375 000 ml @ 75 mls/hr IV . [id number] [facility] Rx#:[id number] Intake, IV Titration 687.390 613.730 431.307 Amount Heparin Sod,Pork in 0.45% 136.596 NaCl 25,000 unit In 0.45 % NaCl 1 250ml.bag @ 9 UNITS/KG/HR 10.002 mls/hr IV .Q24H [facility] Rx#: [id number] Magnesium Sulfate-D5w Pmx 200 1 gm In Dextrose/Water 1 100ml.bag @ 100 mls/hr IVPB Q1H [facility] Rx#: [id number] Norepinephrine 4 mg In 182.589 213.73 131.307 Sodium Chloride 0.9% 250 ml @ 0.05 MCG/KG/MIN 16. 935 mls/hr IV .Q15H [facility] Rx#:[id number] Piperacillin-Tazobactam 3 100 100 100 .375 gm In Sodium Chloride 0.9% 100 ml @ 25 mls/hr IVPB Q8HR [facility] Rx# :[id number] propofoL 1,000 mg In 268.205 100.000 200.000 Empty Bag 1 bag @ Titrate IV .Q0M [facility] Rx#: [id number] Tube Feeding 288 24 120 Other 90 60 Output: Urine 1245 1375 650 Other: Voiding Method Indwelling Catheter Indwelling Catheter Indwelling Catheter # Bowel Movements 1 ABP, PAP, CO, CI - Last Documented Arterial Blood Pressure 103/56 - Exam Patient is intubated, sedated. Exam limited. Pupils are round and reacting. Patient is areflexic. - Labs CBC & Chem 7: 05/19/21 03:50 05/19/21 03:50 Labs: Abnormal Lab Results - Last 24 Hours (Table) 05/19/21 05/19/21 05/19/21 Range/Units 03:50 03:50 03:50 WBC 12.9 H (3.8-10.6) k/uL RBC 3.92 L (4.30-5.90) m/uL Hgb 12.2 L (13.0-17.5) gm/dL Hct 38.5 L (39.0-53.0) % Neutrophils # 11.4 H (1.3-7.7) k/uL Lymphocytes # 0.7 L (1.0-4.8) k/uL APTT (22.0-30.0) sec ABG pH (7.35-7.45) ABG pCO2 (35-45) mmHg Chloride 112 H (98-107) mmol/L Carbon Dioxide 19 L (22-30) mmol/L BUN 33 H (9-20) mg/dL Creatinine 1.46 H (0.66-1.25) mg/dL Glucose 183 H (74-99) mg/dL POC Glucose (mg/dL) 177 H (75-99) mg/dL Albumin 2.6 L (3.5-5.0) g/dL 05/19/21 05/19/21 05/19/21 Range/Units 05:35 06:20 08:06 WBC (3.8-10.6) k/uL RBC (4.30-5.90) m/uL Hgb (13.0-17.5) gm/dL Hct (39.0-53.0) % Neutrophils # (1.3-7.7) k/uL Lymphocytes # (1.0-4.8) k/uL APTT 58.1 H (22.0-30.0) sec ABG pH 7.26 L (7.35-7.45) ABG pCO2 50 H (35-45) mmHg Chloride (98-107) mmol/L Carbon Dioxide (22-30) mmol/L BUN (9-20) mg/dL Creatinine (0.66-1.25) mg/dL Glucose (74-99) mg/dL POC Glucose (mg/dL) 171 H (75-99) mg/dL Albumin (3.5-5.0) g/dL 05/19/21 05/19/21 05/19/21 Range/Units 11:37 15:37 19:37 WBC (3.8-10.6) k/uL RBC (4.30-5.90) m/uL Hgb (13.0-17.5) gm/dL Hct (39.0-53.0) % Neutrophils # (1.3-7.7) k/uL Lymphocytes # (1.0-4.8) k/uL APTT (22.0-30.0) sec ABG pH (7.35-7.45) ABG pCO2 (35-45) mmHg Chloride (98-107) mmol/L Carbon Dioxide (22-30) mmol/L BUN (9-20) mg/dL Creatinine (0.66-1.25) mg/dL Glucose (74-99) mg/dL POC Glucose (mg/dL) 177 H 190 H 126 H (75-99) mg/dL Albumin (3.5-5.0) g/dL 05/19/21 Range/Units 23:48 WBC (3.8-10.6) k/uL RBC (4.30-5.90) m/uL Hgb (13.0-17.5) gm/dL Hct (39.0-53.0) % Neutrophils # (1.3-7.7) k/uL Lymphocytes # (1.0-4.8) k/uL APTT (22.0-30.0) sec ABG pH (7.35-7.45) ABG pCO2 (35-45) mmHg Chloride (98-107) mmol/L Carbon Dioxide (22-30) mmol/L BUN (9-20) mg/dL Creatinine (0.66-1.25) mg/dL Glucose (74-99) mg/dL POC Glucose (mg/dL) 138 H (75-99) mg/dL Albumin (3.5-5.0) g/dL Microbiology - Last 24 Hours (Table) 05/18/21 11:20 Acid Fast Bacilli Smear - Final Bronchial Washings - Right Acid Fast Bacilli Culture - Preliminary 05/18/21 11:20 Gram Stain - Preliminary Bronchial Washings - Right Bronchial Washings Culture - Preliminary Gram Neg Bacilli 05/17/21 11:50 CSF Gram Stain - Preliminary Cerebral Spinal Fluid CSF Culture - Preliminary Assessment and Plan Assessment: * Guillain-Bergman syndrome. Patient has presented with rapidly progressive proximal and distal weakness of upper and lower extremities, diffuse areflexia, and sensory loss distally in the hands and in bilateral legs. Patient has developed progressive respiratory difficulty, with respiratory failure and now has been intubated. * Ventilator-dependent respiratory failure due to above. * Acute UTI. * Diabetes, poorly controlled * Mild to moderate renal insufficiency. * Hypertension * Atrial fibrillation, currently on heparin IV. * Tobacco use 1 pack per day for 30 years. Plan: * Patient has been intubated for respiratory failure from Magalie Bergman syndrome. * Continue IVIG. Today patient has received day #5/5 of IVIG. * Suggest sedation holiday to assess patient's mental status and muscle strength. * Spinal fluid examination revealed CSF proteins 148/60, glucose 104, WBC 1, RBC 118. * Patient's CBC is normal. CMP with BUN 33, creatinine 1.46, both are stable. Hepatic panel normal. Patient tolerated IVIG very well. * MRI of brain revealed no acute stroke. Mild to moderate diffuse cerebral atrophy and moderate chronic small vessel ischemic changes. No suspicious enhancement noted. I personally reviewed MRI of the brain and agree with the findings. * MRI of the cervical spine with and without contrast was suboptimal study without definitive abnormal cord signal or enhancement in the cervical spine. There is central slightly T2 hyperintense nonenhancing lesion in the upper thoracic spine over 1.8 cm segment favoring a focal syrinx. I personally reviewed MRI of the cervical spine. The lesion mentioned appeared artifactual in nature. Again, this lesion would not explain any symptoms in the upper extremities for sure. * Eliquis on hold since 05/14/2021. May resume oral anticoagulants post lumbar puncture. * Blood tests including TA negative B12 308, folic acid 6.3, TSH 3.25, hemoglobin A1c 10.6, ESR 28. IgG 1398, IgA is 513/350, IgM 73.9 normal. (No IgA deficiency). Immunofixation electrophoresis negative for monoclonal protein. Aldolase mildly elevated 7.9/7.6. Serum protein electrophoresis also negative for monoclonal gammopathy. Vitamin B6 is low 6, methylmalonic acid 0.16, vitamin B1 83 normal. Lyme titer negative. * Patient started on folic acid 1 mg daily and vitamin B12 1000 g IM daily for 3 days and vitamin B6 50 mg daily. * Patient currently on Zosyn for possible aspiration pneumonia. * Telemetry monitoring to rule out any arrhythmia. * Patient on heparin IV for DVT prophylaxis.
[2021-05-20] MEDS: SODIUM CHLORIDE 0.9% 1,000 ML IV SCH ×2 (01:50→20:50)
[2021-05-20 03:30] LABS: Glucose,Whole Blood 145 mg/dL (75-99)
[2021-05-20] MEDS: INSULIN ASPART (NovoLOG) 100 UNIT/ML VIAL SQ SCH ×3 (03:37→18:02)
[2021-05-20 04:17] LABS: Basophils % (A) 0 %; Eosinophils % (A) 1 %; HCT 34.6 % (39.0-53.0); HGB 11.1 gm/dL (13.0-17.5); Lymphocytes # (A) 0.7 k/uL (1.0-4.8); Lymphocytes % (A) 8 %; MCH 30.7 pg (25.0-35.0); MCHC 31.9 g/dL (31.0-37.0); Mean Platelet Volume 9.2; Monocytes # (A) 0.5 k/uL (0-1.0); Monocytes % (A) 5 %; Neutrophils # (A) 7.3 k/uL (1.3-7.7); Neutrophils % (A) 85 %; Platelet Count 174 k/uL (150-450); WBC 8.6 k/uL (3.8-10.6)
[2021-05-20 04:51] LABS: Albumin 2.3 g/dL (3.5-5.0); Calcium 8.8 mg/dL (8.4-10.2); Magnesium 1.7 mg/dL (1.6-2.3); Potassium 3.8 mmol/L (3.5-5.1); Total Bilirubin 0.6 mg/dL (0.2-1.3); Total Protein 6.7 g/dL (6.3-8.2)
[2021-05-20] MEDS ORDERED: POTASSIUM BICARBONATE/CIT AC 20 MEQ TABLET.EFF NG-TUBE SCH (05:00)
[2021-05-20] MEDS: MAGNESIUM SULFATE-D5W PMX 1 GM in DEXTROSE/WATER 1 100ML.BAG IVPB SCH ×2 (05:08→06:01)
[2021-05-20 05:50] LABS: ABG Base Excess -2.6 mmol/L; ABG HCO3 23 mmol/L (21-25); ABG Oxygen Saturation 96.8 % (94-97); ABG PCO2 39 mmHg (35-45); ABG PH 7.37 (7.35-7.45); ABG PO2 126 mmHg (83-108); ABG TCO2 24 mmol/L (19-24); Allen Test Performed? Yes
[2021-05-20] MEDS ORDERED: FUROSEMIDE 10 MG/ML 4 ML VIAL IV STA (07:20)
[2021-05-20 07:36] LABS: Glucose,Whole Blood 177 mg/dL (75-99)
[2021-05-20] MEDS: FOLIC ACID 1 MG TAB PO SCH (07:39)
[2021-05-20] MEDS: NICOTINE 14MG/24HR PATCH TRANSDERM SCH (07:39)
[2021-05-20] MEDS: PANTOPRAZOLE 40 MG/10 ML VIAL IVP SCH (07:39)
[2021-05-20] MEDS: SERTRALINE 50 MG TAB PO SCH (07:39)
[2021-05-20] MEDS: CHLORHEXIDINE GLUCONATE 15 ML CUP MUCOUS MEM SCH ×2 (07:39→21:03)
[2021-05-20] MEDS: METOPROLOL TARTRATE 50 MG TAB PO SCH ×2 (07:39→21:03)
[2021-05-20] MEDS: PYRIDOXINE 50 MG TAB PO SCH (07:39)
[2021-05-20] MEDS: AMIODARONE 200 MG TAB PO SCH ×2 (07:39→21:03)
[2021-05-20] MEDS: PIPERACILLIN-TAZOBACTAM 3.375 GM in SODIUM CHLORIDE 0.9% 100 ML IVPB SCH ×2 (07:40→16:38)
--- NOTE | 2021-05-20 08:52 | XR ---
EXAMINATION TYPE: XR chest 1V portable DATE OF EXAM: 05/20/2021 COMPARISON: 05/19/2021 INDICATION: Tube placement TECHNIQUE: Single frontal view of the chest is obtained. FINDINGS: The heart size is normal. The pulmonary vasculature is prominent. Mild diffuse increased lung markings at the lung bases. This may be slightly worsened over the interv al at the left base. Endotracheal tube tip is above rosario. Nasogastric tube transverses the thorax left central venous ca theter tip is in the superior vena cava region IMPRESSION: 1. Mild worsening left lower lobe infiltrate. Right basilar infiltrate is stable. 2. Lines and catheters discussed above.
--- NOTE | 2021-05-20 09:57 | P.PN ---
Subjective Progress Note Date: 05/20/21 Principal diagnosis: Possible Guillain-Bergman syndrome, acute hypoxic respiratory failure This is a 70-year-old white male admitted on 05/12/2021, patient was admitted mostly with a chief complaint of bilateral lower extremities weakness left more so than right, and this has been going on for the last 4 weeks. His symptoms have progressed in the last few weeks to develop weakness in the upper extremities, and his speech was also somehow affected. Speech according to him is becoming a bit more slurred, and has been noticing tingling and weakness in the left foot for a while. Over the last 4 weeks, his symptoms have progressively gotten worse. Patient has never received any form of vaccination in the last few years. He is not even vaccinated for COVID-19 infection. Marsha mcneil denies any history of major medical illnesses although he did have history of coronary artery disease, dyslipidemia, diabetes, hypertension, and previous [place]. Patient has also been complaining of bloody urine, and new onset urinary incontinence. CT of the abdomen and pelvis showed bladder mass, possible possible malignancy patient was seen by urology, and planning cystoscopy on outpatient basis. At any rate the patient was seen yesterday by the neurologist for his neurological symptoms, and he raised the possibility of Guillain-Bergman syndrome. Patient had MRI of the brain and MRI of the cervical spine, his MRI of the brain is unremarkable. However his MRI of the cervical spine questioned non-enhancing lesion in the upper thoracic spine measuring 1.8 cm favoring focal syrinx. However the neurologist reviewed the MRI of the cervical spine, and he felt that this is mostly artifactual. And clearly stated in his note that his symptoms are not related to the syrinx. In addition he recommended starting the patient on IVIG, and he also recommended lumbar spine to be done tomorrow in the meantime his anticoagulation therapy is on hold. Pulmonary-white, patient describes minimal shortness of breath, no cough no wheezing no fever no chills, no hemoptysis and no chest pain. Considering his symptoms and considering the neurologist concern about possible Guillain-Bergman syndrome, patient was stressed to the ICU yesterday, and I have instructed the respirator therapy to perform nif monitoring on this patient. Patient was reevaluated today on 05/17/2021, ration had a deteriorating clinical course last night, patient developed a picture of hypoxic respiratory failure with worsening pulmonary status last night. I was notified about the patient, he was extremely congested, he had a very weak cough, and his saturations were down in the 70s even on a nonrebreather mask. Recommended immediate intubation of the patient, however I was told that the patient was DO NOT RESUSCITATE CODE STATUS. Then I recommended at least placing the patient on BiPAP, and placed on Precedex for extreme agitation. Apparently overnight the CODE STATUS was changed to full code, I was not notified about the change in the CODE STATUS. I saw this patient this morning today, his respiratory status he is deteriorating, and does not seem to be doing well with BiPAP. Then I recommended again i mmediate intubation. Patient was intubated, placed on mechanical ventilation, he is now on assist control rate of 30 tidal volume 400 FiO2 on the percent and PEEP of 8. Patient was also noted to be hypotensive, on norepinephrine, and he is on 0.15 mcg/kg/m. Placed on propofol at 75 mcg/kg/m, fluid boluses were given. Went ahead and placed a left subclavian central line, and right brachial arterial line was also placed. Anesthesia is to perform lumbar puncture on this patient sometime today. Chest x-ray post intubation and post left subclavian central line showed adequate placement of the lines and endotracheal tube, significant bibasilar atelectasis and possibly a small left pleural effusion noted. ABG is pending. Reevaluated today on 05/18/2021, patient remains in the ICU, intubated and mechanically ventilated. However patient was noted to develop worsening chest x-ray and the right lower lobe collapse/atelectasis, and intermittently we have been increasing his FiO2 with worsening chest x-ray, hence I recommended bronchoscopy today and he underwent a bronchoscopy with bronchoalveolar lavage of the right middle lobe, right lower lobe, and a mucous plugs worse suctioned out of the airway especially on the right side. Procedure was well-tolerated, and the plan is to go down on his FiO2. He was initially on 50%, we had to increase his FiO2 up to 80%. He is now back on assist control mode of mechanical ventilation rate 30 tidal volume 430 FiO2 I 50% and PEEP of 8. ABG showed a pO2 of 76 pCO2 of 38 pH of 7.35. Peak airway pressure is 26 blood pressure is 23. Patient remains on multiple drips including norepinephrine, propofol, 45 mcg/kg/m, he is also on norepinephrine at 7 mcg/m, IV fluid at 75 mL per hour in the form of 0.9 normal saline. Patient continues to have persistent hematuria. Chest x-ray as noted above showed mostly right lower lobe collapse. And atelectasis. 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 Patient remains on IVIG. Patient is receiving enteral feeding in the form of vital HPI at 14 mL per hour. Considering the worsening of his pulmonary status today, patient was not felt to be ideal to consider weaning or to assess off sedation. Reevaluated today on 05/19/2021, patient remains in the ICU, intubated and mechanically ventilated. Patient is on assist control rate of 3 to tidal volume is 430 FiO2 of 65% and PEEP of 8. ABG showed a pO2 of 98 pCO2 of 50 pH of 7.26. Hence I increased the rate to 34, I have also cut down the FiO2 to 55%, PEEP at 8. And tidal volumes the same. Patient remains on propofol at 25 mcg/kg/m, he is also on norepinephrine at 0.06 mcg/kg/m. Amiodarone at 0.5, patient had atrial fibrillation with RVR yesterday, he is known to have history of chronic atrial fibrillation. He is also on heparin drip. Patient is on vital HPI at 24 mL per hour. Chest x-ray is showing significant improvement in his right lower lobe atelectasis/possible pneumonia. Remains on antibiotics, cultures from his bronchoscopy and BAL are pending. WBC count is 4.9 hemoglobin is 12.2. PTT is therapeutic at 58. Electrolytes are normal, renal profile is improving with a BUN of 33 creatinine 1.46. Blood sugar is 171. Reevaluated today on 05/20/2021, patient remains in the ICU, intubated and mechanically ventilated. Patient is on assist control rate of 34, tidal volume 430 FiO2 55% and a cardiac down to 50% today, he is on a PEEP of 8. ABG showed a pO2 of 126 pCO2 of 39 pH of 7.37. Patient is sedated, he is on propofol at 45 mcg/kg/m, he is on heparin for his atrial fibrillation he is on vital HPI at 24 mL/h/goal his IV fluid is at 75 mL per hour and I cut it down to KVO mostly because his chest x-ray is showing mild interstitial edema, and airspace disease bilaterally. Patient will be given a dose of Lasix 40 mg IV push. His WBC cou nt is 8.6 hemoglobin is 11.1. Chest x-ray showed bibasilar atelectasis/infiltrates, and slight interstitial edema. Patient was awakened yesterday, and he was appropriate, followed simple instructions according to the nurse. His BAL from the right lower lobe and right middle lobe is showing gram-negative bacilli, and many polymorphonuclear leukocytes. Final identification is pending. Patient is empirically on Zosyn. Renal functioning is steadily improving, creatinine today is 1.20, this was as high as 1.55 only 4 days ago Objective - Vital Signs Vital signs: Vital Signs Temp 99.2 F 05/20/21 08:00 Pulse 92 05/20/21 08:00 Resp 34 H 05/20/21 08:00 BP 99/68 05/20/21 08:00 Pulse Ox 94 L 05/20/21 08:00 Intake & Output 05/19/21 05/20/21 05/20/21 18:59 06:59 18:59 Intake Total 5122.795 4268.571 470.214 Output Total 1375 1360 110 Balance 237.730 647.571 360.214 Weight 95.5 kg Intake: IV 975 825 100 Sodium Chloride 0.9% 1, 975 825 100 000 ml @ 25 mls/hr IV . Q24H [facility] Rx#:[id number] Intake, IV Titration 613.730 828.571 292.214 Amount Heparin Sod,Pork in 0.45% 195.928 NaCl 25,000 unit In 0.45 % NaCl 1 250ml.bag @ 9 UNITS/KG/HR 10.002 mls/hr IV .Q24H [facility] Rx#: [id number] Magnesium Sulfate-D5w Pmx 200 1 gm In Dextrose/Water 1 100ml.bag @ 100 mls/hr IVPB Q1H [facility] Rx#: [id number] Magnesium Sulfate-D5w Pmx 100 100 1 gm In Dextrose/Water 1 100ml.bag @ 100 mls/hr IVPB Q1H [facility] Rx#: [id number] Norepinephrine 4 mg In 213.73 146.774 Sodium Chloride 0.9% 250 ml @ 0.05 MCG/KG/MIN 16. 935 mls/hr IV .Q15H [facility] Rx#:[id number] Piperacillin-Tazobactam 3 100 100 100 .375 gm In Sodium Chloride 0.9% 100 ml @ 25 mls/hr IVPB Q8HR [facility] Rx# :[id number] propofoL 1,000 mg In 100.000 285.869 92.214 Empty Bag 1 bag @ Titrate IV .Q0M [facility] Rx#: [id number] Tube Feeding 24 264 48 Other 90 30 Output: Urine 1375 1360 110 Other: Voiding Method Indwelling Catheter Indwelling Catheter Indwelling Catheter ABP, PAP, CO, CI - Last Documented Arterial Blood Pressure 118/69 - Exam Physical Exam revealed a 70-year-old white male intubated, not in distress. Sedated. Head: Atraumatic, normocephalic. Endotracheal tube and orogastric tube are intact. HEENT:[Neck is supple.] [No neck masses.] [No thyromegaly.] [No JVD.] Chest: [Symmetrical chest expansion crackles at the bases. Cardiac: Irregular irregular rhythm, normal S1 and S2,, no S3 gallop, no murmur. Abdomen: [Soft, nontender, no megaly, no rebound, no guarding, normal bowel sounds.] Extremities: [No clubbing, no edema, no cyanosis.] Neurological Exam: Cannot assess, patient is sedated, intubated. Psychiatric: Cannot assess patient is sedated and intubated. Skin: No rashes. - Labs CBC & Chem 7: 05/20/21 04:00 05/20/21 04:00 Labs: Abnormal Lab Results - Last 24 Hours (Table) 05/19/21 05/19/21 05/19/21 Range/Units 11:37 15:37 19:37 RBC (4.30-5.90) m/uL Hgb (13.0-17.5) gm/dL Hct (39.0-53.0) % Lymphocytes # (1.0-4.8) k/uL APTT (22.0-30.0) sec ABG pO2 (83-108) mmHg Chloride (98-107) mmol/L Carbon Dioxide (22-30) mmol/L BUN (9-20) mg/dL Glucose (74-99) mg/dL POC Glucose (mg/dL) 177 H 190 H 126 H (75-99) mg/dL Albumin (3.5-5.0) g/dL 05/19/21 05/20/21 05/20/21 Range/Units 23:48 03:27 04:00 RBC 3.60 L (4.30-5.90) m/uL Hgb 11.1 L (13.0-17.5) gm/dL Hct 34.6 L (39.0-53.0) % Lymphocytes # 0.7 L (1.0-4.8) k/uL APTT (22.0-30.0) sec ABG pO2 (83-108) mmHg Chloride (98-107) mmol/L Carbon Dioxide (22-30) mmol/L BUN (9-20) mg/dL Glucose (74-99) mg/dL POC Glucose (mg/dL) 138 H 145 H (75-99) mg/dL Albumin (3.5-5.0) g/dL 05/20/21 05/20/21 05/20/21 Range/Units 04:00 05:44 05:45 RBC (4.30-5.90) m/uL Hgb (13.0-17.5) gm/dL Hct (39.0-53.0) % Lymphocytes # (1.0-4.8) k/uL APTT 43.4 H (22.0-30.0) sec ABG pO2 126 H (83-108) mmHg Chloride 115 H (98-107) mmol/L Carbon Dioxide 18 L (22-30) mmol/L BUN 29 H (9-20) mg/dL Glucose 177 H (74-99) mg/dL POC Glucose (mg/dL) (75-99) mg/dL Albumin 2.3 L (3.5-5.0) g/dL 05/20/21 Range/Units 07:34 RBC (4.30-5.90) m/uL Hgb (13.0-17.5) gm/dL Hct (39.0-53.0) % Lymphocytes # (1.0-4.8) k/uL APTT (22.0-30.0) sec ABG pO2 (83-108) mmHg Chloride (98-107) mmol/L Carbon Dioxide (22-30) mmol/L BUN (9-20) mg/dL Glucose (74-99) mg/dL POC Glucose (mg/dL) 177 H (75-99) mg/dL Albumin (3.5-5.0) g/dL Microbiology - Last 24 Hours (Table) 05/18/21 11:20 Acid Fast Bacilli Smear - Final Bronchial Washings - Right Acid Fast Bacilli Culture - Preliminary 05/18/21 11:20 Gram Stain - Preliminary Bronchial Washings - Right Bronchial Washings Culture - Preliminary Gram Neg Bacilli 05/17/21 11:50 CSF Gram Stain - Preliminary Cerebral Spinal Fluid CSF Culture - Preliminary Assessment and Plan Assessment: Impression: 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 Areflexia, and sensory loss distally. With respiratory failure Right lower lobe pneumonia or atelectasis status post bronchoscopy with BAL, and suctioning of mucous plugs from the right mainstem bronchus, right middle lobe, and right lower lobe. Bronchoscopy done on 05/18/01, cultures are pending. In the meantime the patient is still on Zosyn. Cultures from the BAL are showing gram-negative bacilli, final identification is pending in the meantime we'll continue Zosyn. Hematuria, possible bladder malignancy or prostate malignancy being investigated by urology. Chronic atrial fibrillation, presently on heparin. He is also on amiodarone, being followed by cardiology. 80-dlud-chpy smoking history. Benign essential hypertension. Type 2 diabetes. Chronic renal failure, baseline creatinine on admission was in the range of 1.4. Recommendation: Continue ventilatory support Patient will be given another trial of sedation holiday today, and assessment of mental status, yesterday his mental status was appropriate off sedation. Patient will be given gentle diuresis today, chest x-ray is suspicious for possible mild interstitial edema, although the findings are mostly findings of atelectasis and pneumonia. Gram-negative pneumonia. Lumbar puncture results were consistent with Guillain-Bergman syndrome. IVIG to continue. As per neurology on the case. GI and DVT prophylaxis. Continue enteral feeding. Patient is on vital HP at 24 mL/h We will continue to follow Remains critically ill. Patient is not quite ready for weaning trials. critical time is over 30 minutes Time with Patient: Greater than 30
--- NOTE | 2021-05-20 11:07 | P.PN ---
Subjective HISTORY OF PRESENTING ILLNESS This is a pleasant 70-year-old is currently intubated and sedated on ventilator and history is supplied by chart. Patient had presented with progressive ascending weakness and respiratory distress and was found to have multifocal pneumonia as well as Guillain-Bergman syndrome. He does have a history of chronic atrial fibrillation and is on Eliquis 5 mg twice a day as well as metoprolol 50 mg twice a day at home. He has been intubated and has been on antibiotics with additional low dose of norepinephrine and therefore metoprolol has been discontinued. He has been in A. fib throughout the hospitalization with heart rates predominantly controlled however one in the A. fib with RVR yesterday. Patient was given amiodarone bolus and drip and heart rate is better controlled currently at 70. 05/20 Patient seen and examined. Patient remains sedated and intubated on ventilator. Patient's heart rates better controlled with the amiodarone and was transitioned to oral amiodarone. No further hematuria noted and therefore we will transition from heparin drip to the Eliquis. Chest x-ray does show concern of bilateral vascular congestion and therefore given IV Lasix today. PHYSICAL EXAMINATION Vital signs reviewed. CONSTITUTIONAL: No apparent distress, ill appearing on vent HEENT: Head is normocephalic. Pupils are equal, round. Sclerae anicteric. Mucous membranes of the mouth are moist. No JVD. No carotid bruit. +ETT CHEST EXAMINATION: Lungs are clear to auscultation. No chest wall tenderness is noted on palpation or with deep breathing. HEART EXAMINATION: Irregularly irregular. S1, S2 heard. No murmurs, gallops or rub. ABDOMEN: Soft, nontender. Positive bowel sounds. EXTREMITIES: 2+ peripheral pulses, no lower extremity edema and no calf tenderness. NEUROLOGIC EXAMINATION: Patient is sedated and intubated. ASSESSMENT 1. Acute hypoxic respiratory failure related to Guillain-Bergman syndrome 2. Right lower lobe pneumonia 3. Chronic atrial fibrillation previously RVR 05/18 however currently controlled ventricular rates 4. Hematuria with possible bladder malignancy, improved 5. Next tobacco abuse 6. Hypertension 7. Diabetes mellitus type 2 8. Hypotension on low-dose norepinephrine 9. Chronic kidney disease, appears at baseline 10. Volume overload PLAN Patient remains somewhat hypotensive however tolerating metoprolol and vasopressors as needed. Heart rates better controlled on amiodarone and we will continue more for rate control and rhythm control. Hopefully temporary measure once patient is stabilized from a respiratory standpoint. No further hematuria noted and therefore change heparin drip to Eliquis. Chest x-ray does appear time overloaded with mild crackles and therefore monitor response of Lasix. Check CVP. Monitor creatinine closely. Further recommendations to follow. Check 2D echo. Objective - Vital Signs Vital signs: Vital Signs Temp 99.2 F 05/20/21 08:00 Pulse 92 05/20/21 08:00 Resp 34 H 05/20/21 08:00 BP 99/68 05/20/21 08:00 Pulse Ox 94 L 05/20/21 08:00 Intake & Output 05/19/21 05/20/21 05/20/21 18:59 06:59 18:59 Intake Total 4483.785 6396.571 470.214 Output Total 1375 1360 110 Balance 237.730 647.571 360.214 Weight 95.5 kg Intake: IV 975 825 100 Sodium Chloride 0.9% 1, 975 825 100 000 ml @ 25 mls/hr IV . Q24H [facility] Rx#:[id number] Intake, IV Titration 613.730 828.571 292.214 Amount Heparin Sod,Pork in 0.45% 195.928 NaCl 25,000 unit In 0.45 % NaCl 1 250ml.bag @ 9 UNITS/KG/HR 10.002 mls/hr IV .Q24H [facility] Rx#: [id number] Magnesium Sulfate-D5w Pmx 200 1 gm In Dextrose/Water 1 100ml.bag @ 100 mls/hr IVPB Q1H [facility] Rx#: [id number] Magnesium Sulfate-D5w Pmx 100 100 1 gm In Dextrose/Water 1 100ml.bag @ 100 mls/hr IVPB Q1H [facility] Rx#: [id number] Norepinephrine 4 mg In 213.73 146.774 Sodium Chloride 0.9% 250 ml @ 0.05 MCG/KG/MIN 16. 935 mls/hr IV .Q15H [facility] Rx#:[id number] Piperacillin-Tazobactam 3 100 100 100 .375 gm In Sodium Chloride 0.9% 100 ml @ 25 mls/hr IVPB Q8HR [facility] Rx# :[id number] propofoL 1,000 mg In 100.000 285.869 92.214 Empty Bag 1 bag @ Titrate IV .Q0M [facility] Rx#: [id number] Tube Feeding 24 264 48 Other 90 30 Output: Urine 1375 1360 110 Other: Voiding Method Indwelling Catheter Indwelling Catheter Indwelling Catheter ABP, PAP, CO, CI - Last Documented Arterial Blood Pressure 118/69 - Labs CBC & Chem 7: 05/20/21 04:00 05/20/21 04:00 Labs: Abnormal Lab Results - Last 24 Hours (Table) 05/19/21 05/19/21 05/19/21 Range/Units 11:37 15:37 19:37 RBC (4.30-5.90) m/uL Hgb (13.0-17.5) gm/dL Hct (39.0-53.0) % Lymphocytes # (1.0-4.8) k/uL APTT (22.0-30.0) sec ABG pO2 (83-108) mmHg Chloride (98-107) mmol/L Carbon Dioxide (22-30) mmol/L BUN (9-20) mg/dL Glucose (74-99) mg/dL POC Glucose (mg/dL) 177 H 190 H 126 H (75-99) mg/dL Albumin (3.5-5.0) g/dL 05/19/21 05/20/21 05/20/21 Range/Units 23:48 03:27 04:00 RBC 3.60 L (4.30-5.90) m/uL Hgb 11.1 L (13.0-17.5) gm/dL Hct 34.6 L (39.0-53.0) % Lymphocytes # 0.7 L (1.0-4.8) k/uL APTT (22.0-30.0) sec ABG pO2 (83-108) mmHg Chloride (98-107) mmol/L Carbon Dioxide (22-30) mmol/L BUN (9-20) mg/dL Glucose (74-99) mg/dL POC Glucose (mg/dL) 138 H 145 H (75-99) mg/dL Albumin (3.5-5.0) g/dL 05/20/21 05/20/21 05/20/21 Range/Units 04:00 05:44 05:45 RBC (4.30-5.90) m/uL Hgb (13.0-17.5) gm/dL Hct (39.0-53.0) % Lymphocytes # (1.0-4.8) k/uL APTT 43.4 H (22.0-30.0) sec ABG pO2 126 H (83-108) mmHg Chloride 115 H (98-107) mmol/L Carbon Dioxide 18 L (22-30) mmol/L BUN 29 H (9-20) mg/dL Glucose 177 H (74-99) mg/dL POC Glucose (mg/dL) (75-99) mg/dL Albumin 2.3 L (3.5-5.0) g/dL 05/20/21 Range/Units 07:34 RBC (4.30-5.90) m/uL Hgb (13.0-17.5) gm/dL Hct (39.0-53.0) % Lymphocytes # (1.0-4.8) k/uL APTT (22.0-30.0) sec ABG pO2 (83-108) mmHg Chloride (98-107) mmol/L Carbon Dioxide (22-30) mmol/L BUN (9-20) mg/dL Glucose (74-99) mg/dL POC Glucose (mg/dL) 177 H (75-99) mg/dL Albumin (3.5-5.0) g/dL Microbiology - Last 24 Hours (Table) 05/18/21 11:20 Gram Stain - Final Bronchial Washings - Right Bronchial Washings Culture - Final Klebsiella pneumoniae 05/18/21 11:20 Acid Fast Bacilli Smear - Final Bronchial Washings - Right Acid Fast Bacilli Culture - Preliminary 05/17/21 11:50 CSF Gram Stain - Preliminary Cerebral Spinal Fluid CSF Culture - Preliminary
[2021-05-20 12:24] LABS: Glucose,Whole Blood 148 mg/dL (75-99)
[2021-05-20 13:33] LABS: Glucose,Whole Blood 142 mg/dL (75-99)
[2021-05-20 18:02] LABS: Glucose,Whole Blood 170 mg/dL (75-99)
[2021-05-20] MEDS: HYDROmorphone 1 MG/ML 1 ML SYRINGE IVP PRN (18:04)
[2021-05-20] MEDS: APIXABAN 5 MG TAB PO SCH (21:02)
[2021-05-20] MEDS: ATORVASTATIN 80 MG TAB PO SCH (21:03)
[2021-05-20] MEDS: INSULIN DETEMIR (LEVEMIR) 100 UNIT/ML SYR SQ SCH (21:06)
[2021-05-20 23:58] LABS: Glucose,Whole Blood 153 mg/dL (75-99)
[2021-05-21] MEDS: PIPERACILLIN-TAZOBACTAM 3.375 GM in SODIUM CHLORIDE 0.9% 100 ML IVPB SCH (00:04)
[2021-05-21] MEDS: INSULIN ASPART (NovoLOG) 100 UNIT/ML VIAL SQ SCH ×4 (00:04→18:40)
[2021-05-21] MEDS: NOREPINEPHRINE 4 MG in SODIUM CHLORIDE 0.9% 250 ML IV SCH (03:05)
[2021-05-21 04:44] LABS: Basophils % (A) 0 %; Eosinophils # (A) 0.1 k/uL (0-0.7); Eosinophils % (A) 1 %; HGB 11.3 gm/dL (13.0-17.5); Lymphocytes # (A) 0.9 k/uL (1.0-4.8); Lymphocytes % (A) 12 %; MCH 31.1 pg (25.0-35.0); MCHC 33.1 g/dL (31.0-37.0); Mean Platelet Volume 8.6; Monocytes # (A) 0.5 k/uL (0-1.0); Monocytes % (A) 7 %; Neutrophils # (A) 5.7 k/uL (1.3-7.7); Neutrophils % (A) 78 %; Platelet Count 184 k/uL (150-450); RBC 3.62 m/uL (4.30-5.90); RDW 14.4 % (11.5-15.5); WBC 7.3 k/uL (3.8-10.6)
[2021-05-21 04:56] LABS: Albumin 2.3 g/dL (3.5-5.0); Calcium 8.4 mg/dL (8.4-10.2); Potassium 3.3 mmol/L (3.5-5.1); Total Bilirubin 0.5 mg/dL (0.2-1.3); Total Protein 6.6 g/dL (6.3-8.2)
[2021-05-21] MEDS ORDERED: Potassium Replacement Protocol 1 EACH MISC MISCELLANE PRN (04:57)
[2021-05-21 05:37] LABS: Glucose,Whole Blood 164 mg/dL (75-99)
[2021-05-21] MEDS: POTASSIUM BICARBONATE/CIT AC 20 MEQ TABLET.EFF NG-TUBE SCH ×2 (05:37→06:32)
[2021-05-21 06:01] LABS: ABG Base Excess 1.6 mmol/L; ABG HCO3 26 mmol/L (21-25); ABG Oxygen Saturation 92.6 % (94-97); ABG PCO2 38 mmHg (35-45); ABG PH 7.44 (7.35-7.45); ABG PO2 62 mmHg (83-108); ABG TCO2 27 mmol/L (19-24); Allen Test Performed? Yes
--- NOTE | 2021-05-21 07:29 | XR ---
EXAMINATION TYPE: XR chest 1V portable DATE OF EXAM: 05/21/2021 Comparison: 05/20/2021 Clinical History: 70-year-old male Tube placement Findings: ET tube tip satisfactory. NG tube courses below the diaphragm. Left CVC tip at the lower SVC. Heart n ormal size. Relative upper lung lucencies. Diffuse interstitial and vascular prominence persists with patchy bibasilar opacities and possible trace left pleural effusion. Impression: Continued diffuse interstitial changes and focal patchy bibasilar airspace disease/infiltrates. Possi ble trace left effusion also persists.
[2021-05-21] MEDS ORDERED: IPRATROPIUM-ALBUTEROL 3 ML NEB INHALATION PRN (07:47)
--- NOTE | 2021-05-21 08:03 | P.PN ---
Subjective Progress Note Date: 05/20/21 05/20/2021: This is a telemedicine neurology follow performed today on 05/20/2021. Patient continues to be sedated on propofol 40 g. Patient is nonresponsive because of being on sedation. Case discussed with the nurse. When the sedation was shut off for half an hour, patient opened eyes, squeeze hands and move his feet. He was getting gaggy. Patient's x-ray showed mild worsening of left lower lobe infiltrate. Right basal infiltrate is stable. Per nurse, he is not weanable at this time. Patient was seen for a follow-up. Patient continues to be intubated. Patient is on Levophed 7 mcg/mcg/m. Also on propofol 50 mcg/kg/m. Patient sedated at this time. Patient has tolerated IVIG very well. Today is the 4/5 dose of IVIG. Patient is tolerating it well physically, although patient is sedated. Objective - Vital Signs Vital signs: Vital Signs Temp 98.7 F 05/20/21 20:00 Pulse 80 05/20/21 23:00 Resp 34 H 05/20/21 23:00 BP 100/73 05/20/21 21:00 Pulse Ox 93 L 05/20/21 23:00 Intake & Output 05/20/21 05/20/21 05/21/21 06:59 18:59 06:59 Intake Total 2007.571 1313.305 226 Output Total 1360 3535 275 Balance 647.571 -2221.695 -49 Weight 95.5 kg Intake: IV 825 375 100 Sodium Chloride 0.9% 1, 825 375 100 000 ml @ 25 mls/hr IV . Q24H [facility] Rx#:[id number] Intake, IV Titration 828.571 536.305 Amount Heparin Sod,Pork in 0.45% 195.928 NaCl 25,000 unit In 0.45 % NaCl 1 250ml.bag @ 9 UNITS/KG/HR 10.002 mls/hr IV .Q24H [facility] Rx#: [id number] Magnesium Sulfate-D5w Pmx 100 100 1 gm In Dextrose/Water 1 100ml.bag @ 100 mls/hr IVPB Q1H [facility] Rx#: [id number] Norepinephrine 4 mg In 146.774 Sodium Chloride 0.9% 250 ml @ 0.05 MCG/KG/MIN 16. 935 mls/hr IV .Q15H [facility] Rx#:[id number] Piperacillin-Tazobactam 3 100 200 .375 gm In Sodium Chloride 0.9% 100 ml @ 25 mls/hr IVPB Q8HR [facility] Rx# :[id number] propofoL 1,000 mg In 285.869 236.305 Empty Bag 1 bag @ Titrate IV .Q0M [facility] Rx#: [id number] Tube Feeding 264 312 96 Other 90 90 30 Output: Urine 1360 3535 275 Other: Voiding Method Indwelling Catheter Indwelling Catheter Indwelling Catheter ABP, PAP, CO, CI - Last Documented Arterial Blood Pressure 94/52 - Exam Patient is intubated, sedated. Exam limited. Pupils are round and reacting. Patient is areflexic. - Labs CBC & Chem 7: 05/21/21 04:00 05/21/21 04:00 Labs: Abnormal Lab Results - Last 24 Hours (Table) 05/20/21 05/20/21 05/20/21 Range/Units 03:27 04:00 04:00 RBC 3.60 L (4.30-5.90) m/uL Hgb 11.1 L (13.0-17.5) gm/dL Hct 34.6 L (39.0-53.0) % Lymphocytes # 0.7 L (1.0-4.8) k/uL APTT (22.0-30.0) sec ABG pO2 (83-108) mmHg Chloride 115 H (98-107) mmol/L Carbon Dioxide 18 L (22-30) mmol/L BUN 29 H (9-20) mg/dL Glucose 177 H (74-99) mg/dL POC Glucose (mg/dL) 145 H (75-99) mg/dL Albumin 2.3 L (3.5-5.0) g/dL 05/20/21 05/20/21 05/20/21 Range/Units 05:44 05:45 07:34 RBC (4.30-5.90) m/uL Hgb (13.0-17.5) gm/dL Hct (39.0-53.0) % Lymphocytes # (1.0-4.8) k/uL APTT 43.4 H (22.0-30.0) sec ABG pO2 126 H (83-108) mmHg Chloride (98-107) mmol/L Carbon Dioxide (22-30) mmol/L BUN (9-20) mg/dL Glucose (74-99) mg/dL POC Glucose (mg/dL) 177 H (75-99) mg/dL Albumin (3.5-5.0) g/dL 05/20/21 05/20/21 05/20/21 Range/Units 12:22 13:30 18:00 RBC (4.30-5.90) m/uL Hgb (13.0-17.5) gm/dL Hct (39.0-53.0) % Lymphocytes # (1.0-4.8) k/uL APTT (22.0-30.0) sec ABG pO2 (83-108) mmHg Chloride (98-107) mmol/L Carbon Dioxide (22-30) mmol/L BUN (9-20) mg/dL Glucose (74-99) mg/dL POC Glucose (mg/dL) 148 H 142 H 170 H (75-99) mg/dL Albumin (3.5-5.0) g/dL 05/20/21 Range/Units 23:56 RBC (4.30-5.90) m/uL Hgb (13.0-17.5) gm/dL Hct (39.0-53.0) % Lymphocytes # (1.0-4.8) k/uL APTT (22.0-30.0) sec ABG pO2 (83-108) mmHg Chloride (98-107) mmol/L Carbon Dioxide (22-30) mmol/L BUN (9-20) mg/dL Glucose (74-99) mg/dL POC Glucose (mg/dL) 153 H (75-99) mg/dL Albumin (3.5-5.0) g/dL Microbiology - Last 24 Hours (Table) 05/17/21 11:50 CSF Gram Stain - Preliminary Cerebral Spinal Fluid CSF Culture - Preliminary 05/18/21 11:20 Gram Stain - Final Bronchial Washings - Right Bronchial Washings Culture - Final Klebsiella pneumoniae 05/18/21 11:20 Acid Fast Bacilli Smear - Final Bronchial Washings - Right Acid Fast Bacilli Culture - Preliminary Assessment and Plan Assessment: * Guillain-Bergman syndrome. Patient has presented with rapidly progressive proximal and distal weakness of upper and lower extremities, diffuse areflexia, and sensory loss distally in the hands and in bilateral legs. Patient has developed progressive respiratory difficulty, with respiratory failure and now has been intubated. * Ventilator-dependent respiratory failure due to above. * Bilateral pneumonia. * Acute UTI. * Diabetes, poorly controlled * Mild to moderate renal insufficiency. * Hypertension * Atrial fibrillation, currently on heparin IV. * Tobacco use 1 pack per day for 30 years. Plan: * Patient on mechanical ventilation for respiratory failure from Magalie Bergman syndrome. * Patient has completed IVIG infusion #5/5 days of IVIG. * Patient has several and bilateral infiltrates. Patient currently on meropenem * Spinal fluid examination revealed CSF proteins 148/60, glucose 104, WBC 1, RBC 118. * Patient's CBC is normal. CMP with BUN 33, creatinine 1.46, both are stable. Hepatic panel normal. Patient tolerated IVIG very well. * MRI of brain revealed no acute stroke. Mild to moderate diffuse cerebral atrophy and moderate chronic small vessel ischemic changes. No suspicious enhancement noted. I personally reviewed MRI of the brain and agree with the findings. * MRI of the cervical spine with and without contrast was suboptimal study without definitive abnormal cord signal or enhancement in the cervical spine. There is central slightly T2 hyperintense nonenhancing lesion in the upper thoracic spine over 1.8 cm segment favoring a focal syrinx. I personally reviewed MRI of the cervical spine. The lesion mentioned appeared artifactual in nature. Again, this lesion would not explain any symptoms in the upper extremities for sure. * Eliquis on hold since 05/14/2021. May resume oral anticoagulants post lumbar puncture. * Blood tests including TA negative B12 308, folic acid 6.3, TSH 3.25, hemoglobin A1c 10.6, ESR 28. IgG 1398, IgA is 513/350, IgM 73.9 normal. (No IgA deficiency). Immunofixation electrophoresis negative for monoclonal protein. Aldolase mildly elevated 7.9/7.6. Serum protein electrophoresis also negative for monoclonal gammopathy. Vitamin B6 is low 6, methylmalonic acid 0.16, vitamin B1 83 normal. Lyme titer negative. * Patient started on folic acid 1 mg daily and vitamin B12 1000 g IM daily for 3 days and vitamin B6 50 mg daily. * Telemetry monitoring to rule out any arrhythmia. * Patient on heparin IV for DVT prophylaxis. * Dr. Wisam Lim will resume neurology service in the morning.
[2021-05-21] MEDS: IPRATROPIUM-ALBUTEROL 3 ML NEB INHALATION SCH ×5 (09:23→23:49)
[2021-05-21] MEDS: NICOTINE 14MG/24HR PATCH TRANSDERM SCH (09:30)
[2021-05-21] MEDS: CHLORHEXIDINE GLUCONATE 15 ML CUP MUCOUS MEM SCH ×2 (09:30→21:09)
[2021-05-21] MEDS: PANTOPRAZOLE 40 MG/10 ML VIAL IVP SCH (09:30)
[2021-05-21] MEDS: MEROPENEM 2 GM in SODIUM CHLORIDE 0.9% 100 ML IVPB SCH ×2 (09:30→17:29)
[2021-05-21] MEDS: METOPROLOL TARTRATE 50 MG TAB PO SCH ×2 (09:31→21:10)
[2021-05-21] MEDS: APIXABAN 5 MG TAB PO SCH ×2 (09:31→21:10)
[2021-05-21] MEDS: AMIODARONE 200 MG TAB PO SCH ×2 (09:31→21:09)
[2021-05-21] MEDS: FOLIC ACID 1 MG TAB PO SCH (09:31)
[2021-05-21] MEDS: PYRIDOXINE 50 MG TAB PO SCH (09:33)
[2021-05-21] MEDS: SERTRALINE 50 MG TAB PO SCH (09:33)
--- NOTE | 2021-05-21 10:34 | P.PN ---
Subjective Progress Note Date: 05/21/21 Principal diagnosis: Respiratory failure. Reevaluated today on 05/18/2021, patient remains in the ICU, intubated and mechanically ventilated. However patient was noted to develop worsening chest x-ray and the right lower lobe collapse/atelectasis, and intermittently we have been increasing his FiO2 with worsening chest x-ray, hence I recommended bronchoscopy today and he underwent a bronchoscopy with bronchoalveolar lavage of the right middle lobe, right lower lobe, and a mucous plugs worse suctioned out of the airway especially on the right side. Procedure was well-tolerated, and the plan is to go down on his FiO2. He was initially on 50%, we had to increase his FiO2 up to 80%. He is now back on assist control mode of mechanical ventilation rate 30 tidal volume 430 FiO2 I 50% and PEEP of 8. ABG showed a pO2 of 76 pCO2 of 38 pH of 7.35. Peak airway pressure is 26 blood pressure is 23. Patient remains on multiple drips including norepinephrine, propofol, 45 mcg/kg/m, he is also on norepinephrine at 7 mcg/m, IV fluid at 75 mL per hour in the form of 0.9 normal saline. Patient continues to have persistent hematuria. Chest x-ray as noted above showed mostly right lower lobe collapse. And atelectasis. 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 Patient remains on IVIG. Patient is receiving enteral feeding in the form of vital HPI at 14 mL per hour. Considering the worsening of his pulmonary status today, patient was not felt to be ideal to consider weaning or to assess off sedation. Reevaluated today on 05/19/2021, patient remains in the ICU, intubated and mechanically ventilated. Patient is on assist control rate of 3 to tidal volume is 430 FiO2 of 65% and PEEP of 8. ABG showed a pO2 of 98 pCO2 of 50 pH of 7.26. Hence I increased the rate to 34, I have also cut down the FiO2 to 55%, PEEP at 8. And tidal volumes the same. Patient remains on propofol at 25 mcg/kg/m, he is also on norepinephrine at 0.06 mcg/kg/m. Amiodarone at 0.5, patient had atrial fibrillation with RVR yesterday, he is known to have history of chronic atrial fibrillation. He is also on heparin drip. Patient is on vital HPI at 24 mL per hour. Chest x-ray is showing significant improvement in his right lower lobe atelectasis/possible pneumonia. Remains on antibiotics, cultures from his bronchoscopy and BAL are pending. WBC count is 4.9 hemoglobin is 12.2. PTT is therapeutic at 58. Electrolytes are normal, renal profile is improving with a BUN of 33 creatinine 1.46. Blood sugar is 171. Reevaluated today on 05/20/2021, patient remains in the ICU, intubated and mechanically ventilated. Patient is on assist control rate of 34, tidal volume 430 FiO2 55% and a cardiac down to 50% today, he is on a PEEP of 8. ABG showed a pO2 of 126 pCO2 of 39 pH of 7.37. Patient is sedated, he is on propofol at 45 mcg/kg/m, he is on heparin for his atrial fibrillation he is on vital HPI at 24 mL/h/goal his IV fluid is at 75 mL per hour and I cut it down to KVO mostly because his chest x-ray is showing mild interstitial edema, and airspace disease bilaterally. Patient will be given a dose of Lasix 40 mg IV push. His WBC count is 8.6 hemoglobin is 11.1. Chest x-ray showed bibasilar atelectas is/infiltrates, and slight interstitial edema. Patient was awakened yesterday, and he was appropriate, followed simple instructions according to the nurse. His BAL from the right lower lobe and right middle lobe is showing gram-negative bacilli, and many polymorphonuclear leukocytes. Final identification is pending. Patient is empirically on Zosyn. Renal functioning is steadily improving, creatinine today is 1.20, this was as high as 1.55 only 4 days ago Progress note dated 05/21/2021. This is a 70-year-old male, seen in room 251. The patient was admitted on 05/12/2021, with hematuria and dehydration. The patient came to the intensive care unit on 05/17/2021, for respiratory failure, and was intubated on the same day. Patient was apparently found have Guillain-[place] syndrome. The patient underwent bronchoscopy on 05/18/2021. The bronchoscopy washings revealed ESBL Klebsiella. The patient is currently on meropenem. Zosyn was. The patient remains on the mechanical ventilator, with a volume assist control mode, rate 34, tidal volume 430, FiO2 50%, PEEP of 8. Arterial blood gases show a PaO2 of 62, pCO2 38, pH is 7.44. The patient's currently on saline at 25 mL an hour, propofol at 35 mcg/kg/m, and vital HP at 24 mL an hour, which is goal. White count 7.3, hemoglobin 11.3, hematocrit 34, platelet count 184,000. Sodium 141, potassium 3.3, chlorides 110, CO2 24, anion gap 7, BUN 34, creatinine 1.40. The patient chest x-ray showed diffuse interstitial changes and bibasilar patchy airspace disease. Objective - Vital Signs Vital signs: Vital Signs Temp 99.4 F 05/21/21 08:00 Pulse 93 05/21/21 10:00 Resp 35 H 05/21/21 10:00 BP 94/71 05/21/21 10:00 Pulse Ox 92 L 05/21/21 10:00 Intake & Output 05/20/21 05/21/21 05/21/21 18:59 06:59 18:59 Intake Total 1313.305 818.115 191 Output Total 3535 950 475 Balance -2221.695 -131.885 -284 Weight 90.9 kg Intake: IV 375 270 95 Sodium Chloride 0.9% 1, 375 270 95 000 ml @ 25 mls/hr IV . Q24H [facility] Rx#:[id number] Intake, IV Titration 536.305 194.115 Amount Magnesium Sulfate-D5w Pmx 100 1 gm In Dextrose/Water 1 100ml.bag @ 100 mls/hr IVPB Q1H [facility] Rx#: [id number] Piperacillin-Tazobactam 3 200 .375 gm In Sodium Chloride 0.9% 100 ml @ 25 mls/hr IVPB Q8HR [facility] Rx# :[id number] propofoL 1,000 mg In 236.305 194.115 Empty Bag 1 bag @ Titrate IV .Q0M [facility] Rx#: [id number] Tube Feeding 312 264 96 Other 90 90 Output: Urine 3535 950 475 Other: Voiding Method Indwelling Catheter Indwelling Catheter ABP, PAP, CO, CI - Last Documented Arterial Blood Pressure 110/60 - Exam No acute distress, intubated, and mechanically ventilated, sedated, with an orally placed endotracheal tube. HEENT examination is grossly unremarkable. Neck supple. Full range of motion. No adenopathy thyromegaly or neck vein distention. Cardiovascular examination reveals regular rhythm rate. S1-S2 normal. No S3 or S4. No discernible murmur noted. Heart sounds are distant. Heart rate 93 bpm. Lungs reveal bilateral coarse rhonchi. No wheezes. No crackles. Breath sounds equal bilaterally. Saturations are between 90-93%. Abdomen soft bowel sounds are heard. No masses or tenderness. Extremities are intact. No cyanosis or clubbing. Mild edema is noted. Skin is without rash or lesion. Neurologic examination is difficult to assess as the patient's currently sedated with propofol. - Labs CBC & Chem 7: 05/21/21 04:00 05/21/21 04:00 Labs: Abnormal Lab Results - Last 24 Hours (Table) 05/20/21 05/20/21 05/20/21 Range/Units 12:22 13:30 18:00 RBC (4.30-5.90) m/uL Hgb (13.0-17.5) gm/dL Hct (39.0-53.0) % Lymphocytes # (1.0-4.8) k/uL ABG pO2 (83-108) mmHg ABG HCO3 (21-25) mmol/L ABG Total CO2 (19-24) mmol/L ABG O2 Saturation (94-97) % Potassium (3.5-5.1) mmol/L Chloride (98-107) mmol/L BUN (9-20) mg/dL Creatinine (0.66-1.25) mg/dL Glucose (74-99) mg/dL POC Glucose (mg/dL) 148 H 142 H 170 H (75-99) mg/dL Albumin (3.5-5.0) g/dL 05/20/21 05/21/21 05/21/21 Range/Units 23:56 04:00 04:00 RBC 3.62 L (4.30-5.90) m/uL Hgb 11.3 L (13.0-17.5) gm/dL Hct 34.0 L (39.0-53.0) % Lymphocytes # 0.9 L (1.0-4.8) k/uL ABG pO2 (83-108) mmHg ABG HCO3 (21-25) mmol/L ABG Total CO2 (19-24) mmol/L ABG O2 Saturation (94-97) % Potassium 3.3 L (3.5-5.1) mmol/L Chloride 110 H (98-107) mmol/L BUN 34 H (9-20) mg/dL Creatinine 1.40 H (0.66-1.25) mg/dL Glucose 157 H (74-99) mg/dL POC Glucose (mg/dL) 153 H (75-99) mg/dL Albumin 2.3 L (3.5-5.0) g/dL 05/21/21 05/21/21 Range/Units 05:31 05:57 RBC (4.30-5.90) m/uL Hgb (13.0-17.5) gm/dL Hct (39.0-53.0) % Lymphocytes # (1.0-4.8) k/uL ABG pO2 62 L (83-108) mmHg ABG HCO3 26 H (21-25) mmol/L ABG Total CO2 27 H (19-24) mmol/L ABG O2 Saturation 92.6 L (94-97) % Potassium (3.5-5.1) mmol/L Chloride (98-107) mmol/L BUN (9-20) mg/dL Creatinine (0.66-1.25) mg/dL Glucose (74-99) mg/dL POC Glucose (mg/dL) 164 H (75-99) mg/dL Albumin (3.5-5.0) g/dL Microbiology - Last 24 Hours (Table) 05/17/21 11:50 CSF Gram Stain - Final Cerebral Spinal Fluid CSF Culture - Final 05/18/21 11:20 Gram Stain - Final Bronchial Washings - Right Bronchial Washings Culture - Final Klebsiella pneumoniae Assessment and Plan Assessment: Acute hypoxemic respiratory failure secondary to Guillain-[place] syndrome, status post intubation and mechanical ventilation, on 05/17/2021 Progressive/ascending muscle weakness with sensory loss and areflexia, secondary to G-B syndrome. Right lower lobe pneumonia secondary to ESBL Klebsiella, currently on meropenem. Status post bronchoscopy, 05/18/2021. Hematuria, with possible bladder malignancy, currently being evaluated by urology. History of chronic atrial fibrillation. [id number] history of tobacco use. Benign essential hypertension. Type 2 diabetes mellitus. Chronic renal insufficiency. Plan: Plan dated 05/21/2021. The patient remains on the mechanical ventilator. He is not yet ready to be weaned from mechanical ventilation. The patient continues on IVIG as per neurology. The patient continues on GI and DVT prophylaxis. The bronchial washing showed evidence of ESBL Klebsiella, and the antibiotics were changed from Zosyn to meropenem. We will continue tube feedings. Additional recommendations and suggestions are forthcoming. Prognosis is guarded. We will continue to follow and make recommendations where appropriate. Time with Patient: Greater than 30
[2021-05-21 11:07] LABS: Magnesium 1.4 mg/dL (1.6-2.3); Potassium 3.8 mmol/L (3.5-5.1)
[2021-05-21] MEDS ORDERED: Magnesium Replacement Protocol 1 EACH MISC MISCELLANE PRN (11:09)
[2021-05-21] MEDS: MAGNESIUM SULFATE-D5W PMX 1 GM in DEXTROSE/WATER 1 100ML.BAG IVPB SCH ×3 (11:20→14:33)
--- NOTE | 2021-05-21 11:27 | P.PN ---
Subjective Progress Note Date: 05/21/21 Principal diagnosis: This is a 70-year-old gentleman who was admitted with progressive weakness and respiratory distress. He is diagnosed to have Guillain-Bergman syndrome and also pneumonia. We are consulted for management of atrial fibrillation. Currently patient is on amiodarone, metoprolol and liquids. His rate is fairly controlled. He is making slow progress with his of a straight status. From Cardec standpoint we'll continue current medical therapy Objective - Vital Signs Vital signs: Vital Signs Temp 99.4 F 05/21/21 08:00 Pulse 90 05/21/21 11:00 Resp 34 H 05/21/21 11:00 BP 94/71 05/21/21 11:00 Pulse Ox 93 L 05/21/21 11:00 Intake & Output 05/20/21 05/21/21 05/21/21 18:59 06:59 18:59 Intake Total 1313.305 818.115 322.079 Output Total 3535 950 575 Balance -2221.695 -131.885 -252.921 Weight 90.9 kg Intake: IV 375 270 120 Sodium Chloride 0.9% 1, 375 270 120 000 ml @ 25 mls/hr IV . Q24H [facility] Rx#:[id number] Intake, IV Titration 536.305 194.115 82.079 Amount Magnesium Sulfate-D5w Pmx 100 1 gm In Dextrose/Water 1 100ml.bag @ 100 mls/hr IVPB Q1H [facility] Rx#: [id number] Piperacillin-Tazobactam 3 200 .375 gm In Sodium Chloride 0.9% 100 ml @ 25 mls/hr IVPB Q8HR [facility] Rx# :[id number] propofoL 1,000 mg In 236.305 194.115 82.079 Empty Bag 1 bag @ Titrate IV .Q0M [facility] Rx#: [id number] Tube Feeding 312 264 120 Other 90 90 Output: Urine 3535 950 575 Other: Voiding Method Indwelling Catheter Indwelling Catheter Indwelling Catheter ABP, PAP, CO, CI - Last Documented Arterial Blood Pressure 121/70 - Exam GENERAL EXAM: Patient is intubated on respirator HEENT: Normocephalic. NECK: No masses, no nuchal rigidity. CHEST: No chest wall deformity. LUNGS: Diminished air entry HEART: S1 and S2 normal ABDOMEN: No hepatosplenomegaly, normal bowel sounds, no guarding or rigidity. SKIN: No rashes CENTRAL NERVOUS SYSTEM: Intubated and sedated EXTREMITIES: No cyanosis, clubbing or edema. - Labs CBC & Chem 7: 05/21/21 04:00 05/21/21 10:23 Labs: Abnormal Lab Results - Last 24 Hours (Table) 05/20/21 05/20/21 05/20/21 Range/Units 12:22 13:30 18:00 RBC (4.30-5.90) m/uL Hgb (13.0-17.5) gm/dL Hct (39.0-53.0) % Lymphocytes # (1.0-4.8) k/uL ABG pO2 (83-108) mmHg ABG HCO3 (21-25) mmol/L ABG Total CO2 (19-24) mmol/L ABG O2 Saturation (94-97) % Potassium (3.5-5.1) mmol/L Chloride (98-107) mmol/L BUN (9-20) mg/dL Creatinine (0.66-1.25) mg/dL Glucose (74-99) mg/dL POC Glucose (mg/dL) 148 H 142 H 170 H (75-99) mg/dL Magnesium (1.6-2.3) mg/dL Albumin (3.5-5.0) g/dL 05/20/21 05/21/21 05/21/21 Range/Units 23:56 04:00 04:00 RBC 3.62 L (4.30-5.90) m/uL Hgb 11.3 L (13.0-17.5) gm/dL Hct 34.0 L (39.0-53.0) % Lymphocytes # 0.9 L (1.0-4.8) k/uL ABG pO2 (83-108) mmHg ABG HCO3 (21-25) mmol/L ABG Total CO2 (19-24) mmol/L ABG O2 Saturation (94-97) % Potassium 3.3 L (3.5-5.1) mmol/L Chloride 110 H (98-107) mmol/L BUN 34 H (9-20) mg/dL Creatinine 1.40 H (0.66-1.25) mg/dL Glucose 157 H (74-99) mg/dL POC Glucose (mg/dL) 153 H (75-99) mg/dL Magnesium (1.6-2.3) mg/dL Albumin 2.3 L (3.5-5.0) g/dL 05/21/21 05/21/21 05/21/21 Range/Units 05:31 05:57 10:23 RBC (4.30-5.90) m/uL Hgb (13.0-17.5) gm/dL Hct (39.0-53.0) % Lymphocytes # (1.0-4.8) k/uL ABG pO2 62 L (83-108) mmHg ABG HCO3 26 H (21-25) mmol/L ABG Total CO2 27 H (19-24) mmol/L ABG O2 Saturation 92.6 L (94-97) % Potassium (3.5-5.1) mmol/L Chloride (98-107) mmol/L BUN (9-20) mg/dL Creatinine (0.66-1.25) mg/dL Glucose (74-99) mg/dL POC Glucose (mg/dL) 164 H (75-99) mg/dL Magnesium 1.4 L (1.6-2.3) mg/dL Albumin (3.5-5.0) g/dL Microbiology - Last 24 Hours (Table) 05/17/21 11:50 CSF Gram Stain - Final Cerebral Spinal Fluid CSF Culture - Final 05/18/21 11:20 Gram Stain - Final Bronchial Washings - Right Bronchial Washings Culture - Final Klebsiella pneumoniae Assessment and Plan (1) Guillain Bergman syndrome Current Visit: Yes Status: Acute Code(s): G61.0 - GUILLAIN-BARRE SYNDROME SNOMED Code(s): 20774928 (2) Chronic atrial fibrillation Current Visit: Yes Status: Acute Code(s): I48.20 - CHRONIC ATRIAL FIBRILLATION, UNSPECIFIED SNOMED Code(s): 583792440 (3) Pneumonia Current Visit: Yes Status: Acute Code(s): J18.9 - PNEUMONIA, UNSPECIFIED ORGANISM SNOMED Code(s): 739951851 Plan: From cardiac standpoint we'll continue current medical therapy. Rest of the management as for the intensivists.
[2021-05-21 12:32] LABS: Glucose,Whole Blood 198 mg/dL (75-99)
[2021-05-21 13:11] LABS: IgG - CSF 16.8 mg/dL (0.0 - 3.4); IgG/Albumin Index (CSF) 0.35 (0.00 - 0.77)
--- NOTE | 2021-05-21 15:14 | P.PN ---
Subjective Progress Note Date: 05/21/21 I am seeing the patient for the first time during this admission. Per Dr. Kovacs, patient has GBS and has completed his IVIG regimen #5/5 on 05/19/2021. Please refer to Dr. Kovacs's note for further details. Per the nurse the patient has pneumonia and has a lot of secretion. He continues to be intubated and on ventilator. Per the nurse earlier the patient had minimal to some movement of bilateral hands and minimal movements of toes. He had a good cough and gag to nurse and because of his coughing and secretion he is on IV propofol 40mcg/kg/hr per the nurse. Currently he is non-responsive since on sedation. Objective - Vital Signs Vital signs: Vital Signs Temp 99.8 F H 05/21/21 12:00 Pulse 108 H 05/21/21 14:00 Resp 36 H 05/21/21 14:00 BP 94/71 05/21/21 14:00 Pulse Ox 92 L 05/21/21 14:00 Intake & Output 05/20/21 05/21/21 05/21/21 18:59 06:59 18:59 Intake Total 1313.305 818.115 745.079 Output Total 3535 950 1025 Balance -2221.695 -131.885 -279.921 Weight 90.9 kg 90.9 kg Intake: IV 375 270 495 Sodium Chloride 0.9% 1, 375 270 195 000 ml @ 25 mls/hr IV . Q24H [facility] Rx#:[id number] magnesium 300 Intake, IV Titration 536.305 194.115 82.079 Amount Magnesium Sulfate-D5w Pmx 100 1 gm In Dextrose/Water 1 100ml.bag @ 100 mls/hr IVPB Q1H [facility] Rx#: [id number] Piperacillin-Tazobactam 3 200 .375 gm In Sodium Chloride 0.9% 100 ml @ 25 mls/hr IVPB Q8HR [facility] Rx# :[id number] propofoL 1,000 mg In 236.305 194.115 82.079 Empty Bag 1 bag @ Titrate IV .Q0M [facility] Rx#: [id number] Tube Feeding 312 264 168 Other 90 90 Output: Urine 3535 950 1025 Other: Voiding Method Indwelling Catheter Indwelling Catheter Indwelling Catheter ABP, PAP, CO, CI - Last Documented Arterial Blood Pressure 122/70 - Exam GENERAL: The patient is lying in bed and does not seem in acute distress. LUNG: Intubated and is on ventilator. NEUROLOGICAL: Limited since patient is on IV Propofol 40mcg/kg/min and is intubated and on Ventilator Higher mental function: Comatose: GCS 3 (E1,VT1, M1). Cranial nerves: I had to manually open eyes. The pupils are round, equal and reactive to light. No facial weakness. Motor: The strength is limited in assessing exam. Decrease tone throughout. - Labs CBC & Chem 7: 05/21/21 04:00 05/21/21 10:23 Labs: Abnormal Lab Results - Last 24 Hours (Table) 05/17/21 05/20/21 05/20/21 Range/Units 11:50 18:00 23:56 RBC (4.30-5.90) m/uL Hgb (13.0-17.5) gm/dL Hct (39.0-53.0) % Lymphocytes # (1.0-4.8) k/uL ABG pO2 (83-108) mmHg ABG HCO3 (21-25) mmol/L ABG Total CO2 (19-24) mmol/L ABG O2 Saturation (94-97) % Potassium (3.5-5.1) mmol/L Chloride (98-107) mmol/L BUN (9-20) mg/dL Creatinine (0.66-1.25) mg/dL Glucose (74-99) mg/dL POC Glucose (mg/dL) 170 H 153 H (75-99) mg/dL Magnesium (1.6-2.3) mg/dL Albumin (3.5-5.0) g/dL CSF Albumin 49.5 H (0.0 - 35.0) mg/dL CSF IgG (MS) 16.8 H (0.0 - 3.4) mg/dL Serum Albumin 2,950 L (3500 - 5200) mg/dL IgG 2,880 H (700 - 1600) mg/dL 05/21/21 05/21/21 05/21/21 Range/Units 04:00 04:00 05:31 RBC 3.62 L (4.30-5.90) m/uL Hgb 11.3 L (13.0-17.5) gm/dL Hct 34.0 L (39.0-53.0) % Lymphocytes # 0.9 L (1.0-4.8) k/uL ABG pO2 (83-108) mmHg ABG HCO3 (21-25) mmol/L ABG Total CO2 (19-24) mmol/L ABG O2 Saturation (94-97) % Potassium 3.3 L (3.5-5.1) mmol/L Chloride 110 H (98-107) mmol/L BUN 34 H (9-20) mg/dL Creatinine 1.40 H (0.66-1.25) mg/dL Glucose 157 H (74-99) mg/dL POC Glucose (mg/dL) 164 H (75-99) mg/dL Magnesium (1.6-2.3) mg/dL Albumin 2.3 L (3.5-5.0) g/dL CSF Albumin (0.0 - 35.0) mg/dL CSF IgG (MS) (0.0 - 3.4) mg/dL Serum Albumin (3500 - 5200) mg/dL IgG (700 - 1600) mg/dL 05/21/21 05/21/21 05/21/21 Range/Units 05:57 10:23 12:30 RBC (4.30-5.90) m/uL Hgb (13.0-17.5) gm/dL Hct (39.0-53.0) % Lymphocytes # (1.0-4.8) k/uL ABG pO2 62 L (83-108) mmHg ABG HCO3 26 H (21-25) mmol/L ABG Total CO2 27 H (19-24) mmol/L ABG O2 Saturation 92.6 L (94-97) % Potassium (3.5-5.1) mmol/L Chloride (98-107) mmol/L BUN (9-20) mg/dL Creatinine (0.66-1.25) mg/dL Glucose (74-99) mg/dL POC Glucose (mg/dL) 198 H (75-99) mg/dL Magnesium 1.4 L (1.6-2.3) mg/dL Albumin (3.5-5.0) g/dL CSF Albumin (0.0 - 35.0) mg/dL CSF IgG (MS) (0.0 - 3.4) mg/dL Serum Albumin (3500 - 5200) mg/dL IgG (700 - 1600) mg/dL Microbiology - Last 24 Hours (Table) 05/17/21 11:50 CSF Gram Stain - Final Cerebral Spinal Fluid CSF Culture - Final Assessment and Plan Assessment: * Guillain-Bergman syndrome. Patient has presented with rapidly progressive proximal and distal weakness of upper and lower extremities, diffuse areflexia, and sensory loss distally in the hands and in bilateral legs. Patient has developed progressive respiratory difficulty, with respiratory failure and now has been intubated. Completed IVIG for 5 days (last on 05/19/2021). * Ventilator-dependent respiratory failure due to above. * Right lower lobe pneumonia secondary due to ESBL Klesiella. * Acute UTI. * Diabetes, poorly controlled * Chronic renal insufficiency. * Hypertension * Chronic Atrial fibrillation * Hematuria with possible bladder malignancy, currently being evaluated by urology * Tobacco use 1 pack per day for 30 years. Plan: * Patient has completed IVIG infusion #5/5 days of IVIG on 05/19/2021. * Patient on mechanical ventilation for respiratory failure from Magalie Bergman syndrome. * alexis fluid examination revealed CSF proteins 148/60, glucose 104, WBC 1, RBC 118. In addition to GBS (causing albuminocytological dissociation), his poorly controlled DM can causes elevation of protein and glucose. * Patient currently on meropenem * Hepatic panel normal. * MRI of brain revealed no acute stroke. Mild to moderate diffuse cerebral atrophy and moderate chronic small vessel ischemic changes. No suspicious enhancement noted. * MRI of the cervical spine with and without contrast was suboptimal study with out definitive abnormal cord signal or enhancement in the cervical spine. There is central slightly T2 hyperintense nonenhancing lesion in the upper thoracic spine over 1.8 cm segment favoring a focal syrinx. I personally reviewed MRI of the cervical spine. The lesion mentioned appeared artifactual in nature. Again, this lesion would not explain any symptoms in the upper extremities for sure. * Blood tests including TA negative B12 308, folic acid 6.3, TSH 3.25, hemoglobin A1c 10.6, ESR 28. IgG 1398, IgA is 513/350, IgM 73.9 normal. (No IgA deficiency). Immunofixation electrophoresis negative for monoclonal protein. Aldolase mildly elevated 7.9/7.6. Serum protein electrophoresis also negative for monoclonal gammopathy. Vitamin B6 is low 6, methylmalonic acid 0.16, vitamin B1 83 normal. Lyme titer negative. * Continue folic acid 1 mg daily and vitamin B12 1000 g IM daily for 2 days then switch to PO and vitamin B6 50 mg daily. * For chronic atrial fibrillation, will defer management to cardiology team. Patient on Eliquis * Telemetry monitoring to rule out any arrhythmia. * PT and OT are consulted. * Patient on heparin IV for DVT prophylaxis. * Will defer the rest of medical management to ICU and Pulmonary team. * Condition: Is very guarded. The plan is discussed with the patient's nurse. Chance Lim M.D. Neuro-Hospitalist Time with Patient: Less than 30
[2021-05-21] MEDS ORDERED: POTASSIUM BICARBONATE/CIT AC 20 MEQ TABLET.EFF NG-TUBE SCH (16:00)
--- NOTE | 2021-05-21 16:18 | P.PN ---
Subjective From records Patient is a 70-year-old male with a known history of hypertension, hyperlipidemia, diabetes type 2 insulin-dependent, history of IL status post cardiac catheterization, currently everyday smoker and BPH presented to ER with complaints of left hip pain and also left shoulder pain. Pain gets worse with movement. Patient denies any recent falls. Patient initially presented to ER and had CT abdominal pelvis which showed moderate bilateral hydronephrosis and hydroureter. This could relate to reflux. Appearance not changed compared with exam. Dilated gallbladder increased compared to holograms history of cholecystitis. There are few calcified gallstones. Pancreatic calcifications appear unchanged and consistent with chronic pancreatitis. Sigmoid diverticulosis hypertrophic changes in the urinary bladder similar to old exam. Nodular density at the base of the bladder could be enlarged prostate or bladder mass. Unchanged. Enlarged prostate. There is a 12 mm stellate nodule in the subpleural lateral right lower lobe that appears to be new compared to old exam. Follow-up recommended. X-ray of the shoulder no acute fracture or dislocation. Moderate narrowing and mild to moderate spurring at the acromioclavicular joint is more prominent from prior. Hip x-ray showed mild to moderate degenerative joint disease. Laboratory data showed sodium 135 potassium 4.3 chloride 102 bicarb is 21 BUN 20 and creatinine 1.47 blood sugar is 267 Urinalysis showed large blood nitrate negative and large leukocyte esterase with elevated RBCs and WBCs. WBC 11.5 hemoglobin 14.3 and platelets 277. Coronavirus PCR not detected. 05/13/2021 Patient is currently lying in the bed. Awake alert and still complaining of left lower abdominal pain and hip pain. X-ray of the hip showed mild degenerative changes without acute fracture or dislocation. Overlying soft tissue appears unremarkable. Vascular calcifications noted. Otherwise no acute process identified. Patient admitted on pain management. Urology has seen the patient and recommend outpatient follow-up for cystoscopy. Resume Eliquis at this time. PT OT consult and continue with pain management. Subjective: resuming the care from above 05/14/2021 This is a pleasant 70 years old male who presents on 05/12 for limb pain and inability to walk. Patient complains from weakness in all 4 extremities but more pronounced in the left leg as he states he barely can lift it off the bed. Also he has decreased sensation when examined his left leg. However he complains also to some degree of weakness from all 4 extremities motor he could not move his both arms above his head however passively I could move them up and patient had good tone in his muscles and he could hold them up above his head but then he will drop down once released Patient denies any abdominal pain today and he states that his hematuria has been cleared today back to yellow urine. Patient also feels generally weak and he might need to go to rehab. Patient hematuria problem is not in the room and he has his urologist seen prior to hospitalization and he is supposed to get stress test with environmental engineering aide this, the Friday as part of preop evaluation. Also patient states that he was on baby aspirin at home but he ran out of it about one week prior to hospitalization. Also he is on Eliquis Patient told me that he has A. fib and that's why he takes Eliquis at home and that has been taking Eliquis and aspirated one week ago Subjective: Resuming the care of the patient again starting to 05/18/2021, after Dr. Jefferson. Patient currently in the ICU intubated and sedated. 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 With pulmonary/critical care team following him closely and help with vent management, today his FiO2 increased 50% up to 8% after pO2 was low 76. Rest of ABG was normal. He remains on PEEP of 8. Also patient is receiving IVIG. Today's the third dose. His lumbar puncture was consistent with his Gullian Juan syndrome with elevated opening up pressure at 30 cm of water . Also RBCs high 118, decreased protein 148, glucose is 104. Nucleated cells/WBC 1 only. Also patient developing low-grade fever and chest x-ray showing marked lower lobe infiltrate and his antibiotics was adjustment today ceftriaxone and to Zosyn. Patient remains critically ill. 05/19/2021 Patient re also he is developing hypotension requiring Levophed however he needs this dose today at 0.06 g per KG per minute. guerita in the ICU in critical condition intubated and sedated with pulmonary/critical care team are following him closely. Patient is developing respiratory failure secondary to his Gullina- Berri syndrome. And the neurology on the case and he is receiving IVIG He is a known case of A. fib on metoprolol and Eliquis, which was changed to he rabia drip because he needed lumbar puncture. Metoprolol was held once he needed Levophed , so today he developed A. fib and RVR which is currently controlled with amiodarone 400 mg twice a day with environmental engineering aide consulted and recommended echocardiogram. Also patient is on Zosyn for right basal versus bilateral basal pneumonia, also shown on today's chest x-ray. Remains intubated with FiO2 lower today to 55%, remains on PEEP of 8 like yesterday. He has no fever today. Leukocytosis slightly up 12.9, creatinine is stable at 1.4. 05/20/2021 Patient presents with weakness in all extremities motor on the left lower leg and decreased sensation, moved to the ICU on ) monitoring got deteriorated overnight and he had to be intubated because of worsening respiratory status. Neurology was already on the case and were following him closely. patient currently kept monitored in the ICU with pulmonary/critical care team helping with vent management. Also he is receiving IVIG under the kindness of neurology team, distal intubated and sedated which limits his examination. His leukocytosis improved to 8.6 today. Creatinine is stable at 1.4. He had no fever since yesterday. PEEP remains at 8, FiO2 remains at 50%, he is tachypneic. Sputum culture chronic gram-negative bacilli remains on Zosyn empirically pending final results of the culture. Is also an heparin drip just to liquids per environmental engineering aide. Also IVIG. Also Pepcid. Also his A. fib controlled with amiodarone 400 mg on the top of home dose of metoprolol 50 mg. Objective - Vital Signs Vital signs: Vital Signs Temp 99.2 F 05/20/21 08:00 Pulse 92 05/20/21 08:00 Resp 34 H 05/20/21 08:00 BP 99/68 05/20/21 08:00 Pulse Ox 94 L 05/20/21 08:00 Intake & Output 05/19/21 05/20/21 05/20/21 18:59 06:59 18:59 Intake Total 1002.289 5047.571 470.214 Output Total 1375 1360 110 Balance 237.730 647.571 360.214 Weight 95.5 kg Intake: IV 975 825 100 Sodium Chloride 0.9% 1, 975 825 100 000 ml @ 25 mls/hr IV . Q24H [facility] Rx#:[id number] Intake, IV Titration 613.730 828.571 292.214 Amount Heparin Sod,Pork in 0.45% 195.928 NaCl 25,000 unit In 0.45 % NaCl 1 250ml.bag @ 9 UNITS/KG/HR 10.002 mls/hr IV .Q24H [facility] Rx#: [id number] Magnesium Sulfate-D5w Pmx 200 1 gm In Dextrose/Water 1 100ml.bag @ 100 mls/hr IVPB Q1H [facility] Rx#: [id number] Magnesium Sulfate-D5w Pmx 100 100 1 gm In Dextrose/Water 1 100ml.bag @ 100 mls/hr IVPB Q1H [facility] Rx#: [id number] Norepinephrine 4 mg In 213.73 146.774 Sodium Chloride 0.9% 250 ml @ 0.05 MCG/KG/MIN 16. 935 mls/hr IV .Q15H [facility] Rx#:[id number] Piperacillin-Tazobactam 3 100 100 100 .375 gm In Sodium Chloride 0.9% 100 ml @ 25 mls/hr IVPB Q8HR [facility] Rx# :[id number] propofoL 1,000 mg In 100.000 285.869 92.214 Empty Bag 1 bag @ Titrate IV .Q0M [facility] Rx#: [id number] Tube Feeding 24 264 48 Other 90 30 Output: Urine 1375 1360 110 Other: Voiding Method Indwelling Catheter Indwelling Catheter Indwelling Catheter ABP, PAP, CO, CI - Last Documented Arterial Blood Pressure 118/69 - Exam -GENERAL: The patient is intubated and sedated HEENT: Pupils are round and equally reacting to light. EOMI. No scleral icterus. No conjunctival pallor. Normocephalic, atraumatic. No pharyngeal erythema. No thyromegaly. CARDIOVASCULAR: S1 and S2 present. No murmurs, rubs, or gallops. PULMONARY: Chest is clear to auscultation, no wheezing or crackles. ABDOMEN: Soft, nontender, nondistended, normoactive bowel sounds. No palpable organomegaly. MUSCULOSKELETAL: No joint swelling or deformity. EXTREMITIES: No cyanosis, clubbing, or pedal edema. -NEUROLOGICAL: Examination is limited by patient intubation. Pupils are equal and reactive to light. No facial asymmetry. Absent reflexes SKIN: No rashes. no petechiae. - Labs CBC & Chem 7: 05/21/21 04:00 05/21/21 10:23 Labs: Abnormal Lab Results - Last 24 Hours (Table) 05/19/21 05/19/21 05/19/21 Range/Units 11:37 15:37 19:37 RBC (4.30-5.90) m/uL Hgb (13.0-17.5) gm/dL Hct (39.0-53.0) % Lymphocytes # (1.0-4.8) k/uL APTT (22.0-30.0) sec ABG pO2 (83-108) mmHg Chloride (98-107) mmol/L Carbon Dioxide (22-30) mmol/L BUN (9-20) mg/dL Glucose (74-99) mg/dL POC Glucose (mg/dL) 177 H 190 H 126 H (75-99) mg/dL Albumin (3.5-5.0) g/dL 05/19/21 05/20/21 05/20/21 Range/Units 23:48 03:27 04:00 RBC 3.60 L (4.30-5.90) m/uL Hgb 11.1 L (13.0-17.5) gm/dL Hct 34.6 L (39.0-53.0) % Lymphocytes # 0.7 L (1.0-4.8) k/uL APTT (22.0-30.0) sec ABG pO2 (83-108) mmHg Chloride (98-107) mmol/L Carbon Dioxide (22-30) mmol/L BUN (9-20) mg/dL Glucose (74-99) mg/dL POC Glucose (mg/dL) 138 H 145 H (75-99) mg/dL Albumin (3.5-5.0) g/dL 05/20/21 05/20/21 05/20/21 Range/Units 04:00 05:44 05:45 RBC (4.30-5.90) m/uL Hgb (13.0-17.5) gm/dL Hct (39.0-53.0) % Lymphocytes # (1.0-4.8) k/uL APTT 43.4 H (22.0-30.0) sec ABG pO2 126 H (83-108) mmHg Chloride 115 H (98-107) mmol/L Carbon Dioxide 18 L (22-30) mmol/L BUN 29 H (9-20) mg/dL Glucose 177 H (74-99) mg/dL POC Glucose (mg/dL) (75-99) mg/dL Albumin 2.3 L (3.5-5.0) g/dL 05/20/21 Range/Units 07:34 RBC (4.30-5.90) m/uL Hgb (13.0-17.5) gm/dL Hct (39.0-53.0) % Lymphocytes # (1.0-4.8) k/uL APTT (22.0-30.0) sec ABG pO2 (83-108) mmHg Chloride (98-107) mmol/L Carbon Dioxide (22-30) mmol/L BUN (9-20) mg/dL Glucose (74-99) mg/dL POC Glucose (mg/dL) 177 H (75-99) mg/dL Albumin (3.5-5.0) g/dL Microbiology - Last 24 Hours (Table) 05/18/21 11:20 Acid Fast Bacilli Smear - Final Bronchial Washings - Right Acid Fast Bacilli Culture - Preliminary 05/18/21 11:20 Gram Stain - Preliminary Bronchial Washings - Right Bronchial Washings Culture - Preliminary Gram Neg Bacilli 05/17/21 11:50 CSF Gram Stain - Preliminary Cerebral Spinal Fluid CSF Culture - Preliminary Assessment and Plan Assessment: 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 Needs cystoscopy as an outpatient Chronic A. fib and RVR Bilateral moderate hydronephrosis Hematuria resolved now. Acute urinary tract infection. on antibiotic Hyperglycemia with uncontrolled diabetes type 2 insulin-dependent Hypomagnesemia Hypovolemic hyponatremia Acute kidney injury likely prerenal Chronic kidney disease stage III Paroxysmal atrial fibrillation on anticoagulation with Eliquis Hypertension Hyperlipidemia History of IL status post cardiac catheterization. Plan: This is a pleasant 70 years old male who presents with hematuria and generalized weakness and generalized pain. Left leg weakness and decreased sensation. Continue mechanical ventilation with the help of the pulmonary/critical care team will follow him closely Continue with IVIG as per neurology team will follow him closely as well Continue heparin drip and changed to Eliquis due to his history of A. fib. Cont inue with amiodarone and metoprolol. Cardiology on the case Continue with Julia to get the final results of the sputum culture Urology on the case and patient informed to need cystoscopy and possible TURP as an outpatient and he verbalized understanding and acceptance. The risk of cancer explained Prior to intubation Follow-up with environmental engineering aide Dr. Snow on this coming Friday for stress test. He is discharged before that. Patient informed and he agrees. Labs and medication were reviewed.. Continue same treatment. Continue with symptomatic treatment. Resume home medication. Monitor lytes and vitals. DVT and GI prophylaxis. Further recommendations as per clinical course of the jerry ent DVT prophylaxis: On Eliquis GI Prophylaxis: Pepcid PT/OT: deferred Prognosis is guarded
[2021-05-21 18:35] LABS: Glucose,Whole Blood 248 mg/dL (75-99)
[2021-05-21] MEDS ORDERED: INSULIN ASPART (NovoLOG) 100 UNIT/ML VIAL SQ ONE (18:41)
[2021-05-21] MEDS: ATORVASTATIN 80 MG TAB PO SCH (21:09)
[2021-05-21] MEDS: INSULIN DETEMIR (LEVEMIR) 100 UNIT/ML SYR SQ SCH (21:12)
[2021-05-22 00:20] LABS: Glucose,Whole Blood 155 mg/dL (75-99)
[2021-05-22] MEDS: INSULIN ASPART (NovoLOG) 100 UNIT/ML VIAL SQ SCH ×4 (00:24→17:45)
[2021-05-22] MEDS: MEROPENEM 2 GM in SODIUM CHLORIDE 0.9% 100 ML IVPB SCH ×3 (00:25→15:36)
[2021-05-22] MEDS: ACETAMINOPHEN TAB 325 MG TAB PO PRN ×2 (00:29→07:55)
[2021-05-22] MEDS: IPRATROPIUM-ALBUTEROL 3 ML NEB INHALATION SCH ×5 (03:45→18:47)
[2021-05-22] MEDS: SODIUM CHLORIDE 0.9% 1,000 ML IV SCH ×2 (04:15→19:51)
[2021-05-22 04:46] LABS: Albumin 2.4 g/dL (3.5-5.0); Calcium 8.4 mg/dL (8.4-10.2); Magnesium 1.7 mg/dL (1.6-2.3); Total Bilirubin 0.6 mg/dL (0.2-1.3); Total Protein 6.8 g/dL (6.3-8.2)
[2021-05-22 04:48] LABS: Basophils % (A) 0 %; Eosinophils % (A) 0 %; HGB 11.8 gm/dL (13.0-17.5); Lymphocytes # (A) 0.9 k/uL (1.0-4.8); Lymphocytes % (A) 11 %; MCH 30.6 pg (25.0-35.0); MCHC 32.8 g/dL (31.0-37.0); MCV 93.5 fL (80.0-100.0); Mean Platelet Volume 8.7; Monocytes # (A) 0.6 k/uL (0-1.0); Monocytes % (A) 7 %; Neutrophils # (A) 7.2 k/uL (1.3-7.7); Neutrophils % (A) 81 %; Platelet Count 197 k/uL (150-450); RBC 3.86 m/uL (4.30-5.90); RDW 14.3 % (11.5-15.5); WBC 8.9 k/uL (3.8-10.6)
[2021-05-22] MEDS: MAGNESIUM SULFATE-D5W PMX 1 GM in DEXTROSE/WATER 1 100ML.BAG IVPB SCH ×2 (05:33→07:00)
[2021-05-22 05:36] LABS: ABG Base Excess 3.9 mmol/L; ABG HCO3 28 mmol/L (21-25); ABG Oxygen Saturation 92.9 % (94-97); ABG PCO2 43 mmHg (35-45); ABG PH 7.43 (7.35-7.45); ABG PO2 66 mmHg (83-108); ABG TCO2 30 mmol/L (19-24); Allen Test Performed? Yes
[2021-05-22 05:52] LABS: Glucose,Whole Blood 160 mg/dL (75-99)
--- NOTE | 2021-05-22 06:37 | XR ---
EXAMINATION TYPE: XR chest 1V portable DATE OF EXAM: 05/22/2021 CLINICAL HISTORY: Difficulty breathing progress study. TECHNIQUE: Single AP portable semi-upright view of the chest is obtained. COMPARISON: Chest x-ray from one day earlier and older studies. FINDINGS: Stable endotracheal and orogastric tubes. Stable left-sided subclavian central venous cath eter. Persistent bilateral lower lung increased opacity is. Upper lungs remain clear. Cardiac silhouette si ze stable and within normal limits. Osseous structures are intact. IMPRESSION: Bilateral lower lung acute infiltrates and/or atelectasis redemonstrated. No significant change from one day earlier.
[2021-05-22] MEDS: APIXABAN 5 MG TAB PO SCH ×2 (07:54→19:50)
[2021-05-22] MEDS: PANTOPRAZOLE 40 MG/10 ML VIAL IVP SCH (07:54)
[2021-05-22] MEDS: METOPROLOL TARTRATE 50 MG TAB PO SCH ×2 (07:54→19:50)
[2021-05-22] MEDS: AMIODARONE 200 MG TAB PO SCH ×2 (07:54→19:50)
[2021-05-22] MEDS: CHLORHEXIDINE GLUCONATE 15 ML CUP MUCOUS MEM SCH ×2 (07:54→19:50)
[2021-05-22] MEDS: PYRIDOXINE 50 MG TAB PO SCH (07:54)
[2021-05-22] MEDS: FOLIC ACID 1 MG TAB PO SCH (07:54)
[2021-05-22] MEDS: SERTRALINE 50 MG TAB PO SCH (07:54)
[2021-05-22] MEDS: NICOTINE 14MG/24HR PATCH TRANSDERM SCH (07:55)
--- NOTE | 2021-05-22 09:53 | P.PN ---
Subjective Progress Note Date: 05/22/21 Principal diagnosis: Respiratory failure. Reevaluated today on 05/18/2021, patient remains in the ICU, intubated and mechanically ventilated. However patient was noted to develop worsening chest x-ray and the right lower lobe collapse/atelectasis, and intermittently we have been increasing his FiO2 with worsening chest x-ray, hence I recommended bronchoscopy today and he underwent a bronchoscopy with bronchoalveolar lavage of the right middle lobe, right lower lobe, and a mucous plugs worse suctioned out of the airway especially on the right side. Procedure was well-tolerated, and the plan is to go down on his FiO2. He was initially on 50%, we had to increase his FiO2 up to 80%. He is now back on assist control mode of mechanical ventilation rate 30 tidal volume 430 FiO2 I 50% and PEEP of 8. ABG showed a pO2 of 76 pCO2 of 38 pH of 7.35. Peak airway pressure is 26 blood pressure is 23. Patient remains on multiple drips including norepinephrine, propofol, 45 mcg/kg/m, he is also on norepinephrine at 7 mcg/m, IV fluid at 75 mL per hour in the form of 0.9 normal saline. Patient continues to have persistent hematuria. Chest x-ray as noted above showed mostly right lower lobe collapse. And atelectasis. 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 Patient remains on IVIG. Patient is receiving enteral feeding in the form of vital HPI at 14 mL per hour. Considering the worsening of his pulmonary status today, patient was not felt to be ideal to consider weaning or to assess off sedation. Reevaluated today on 05/19/2021, patient remains in the ICU, intubated and mechanically ventilated. Patient is on assist control rate of 3 to tidal volume is 430 FiO2 of 65% and PEEP of 8. ABG showed a pO2 of 98 pCO2 of 50 pH of 7.26. Hence I increased the rate to 34, I have also cut down the FiO2 to 55%, PEEP at 8. And tidal volumes the same. Patient remains on propofol at 25 mcg/kg/m, he is also on norepinephrine at 0.06 mcg/kg/m. Amiodarone at 0.5, patient had atrial fibrillation with RVR yesterday, he is known to have history of chronic atrial fibrillation. He is also on heparin drip. Patient is on vital HPI at 24 mL per hour. Chest x-ray is showing significant improvement in his right lower lobe atelectasis/possible pneumonia. Remains on antibiotics, cultures from his bronchoscopy and BAL are pending. WBC count is 4.9 hemoglobin is 12.2. PTT is therapeutic at 58. Electrolytes are normal, renal profile is improving with a BUN of 33 creatinine 1.46. Blood sugar is 171. Reevaluated today on 05/20/2021, patient remains in the ICU, intubated and mechanically ventilated. Patient is on assist control rate of 34, tidal volume 430 FiO2 55% and a cardiac down to 50% today, he is on a PEEP of 8. ABG showed a pO2 of 126 pCO2 of 39 pH of 7.37. Patient is sedated, he is on propofol at 45 mcg/kg/m, he is on heparin for his atrial fibrillation he is on vital HPI at 24 mL/h/goal his IV fluid is at 75 mL per hour and I cut it down to KVO mostly because his chest x-ray is showing mild interstitial edema, and airspace disease bilaterally. Patient will be given a dose of Lasix 40 mg IV push. His WBC count is 8.6 hemoglobin is 11.1. Chest x-ray showed bibasilar atelectas is/infiltrates, and slight interstitial edema. Patient was awakened yesterday, and he was appropriate, followed simple instructions according to the nurse. His BAL from the right lower lobe and right middle lobe is showing gram-negative bacilli, and many polymorphonuclear leukocytes. Final identification is pending. Patient is empirically on Zosyn. Renal functioning is steadily improving, creatinine today is 1.20, this was as high as 1.55 only 4 days ago Progress note dated 05/21/2021. This is a 70-year-old male, seen in room 251. The patient was admitted on 05/12/2021, with hematuria and dehydration. The patient came to the intensive care unit on 05/17/2021, for respiratory failure, and was intubated on the same day. Patient was apparently found have Guillain-Bellflower syndrome. The patient underwent bronchoscopy on 05/18/2021. The bronchoscopy washings revealed ESBL Klebsiella. The patient is currently on meropenem. Zosyn was. The patient remains on the mechanical ventilator, with a volume assist control mode, rate 34, tidal volume 430, FiO2 50%, PEEP of 8. Arterial blood gases show a PaO2 of 62, pCO2 38, pH is 7.44. The patient's currently on saline at 25 mL an hour, propofol at 35 mcg/kg/m, and vital HP at 24 mL an hour, which is goal. White count 7.3, hemoglobin 11.3, hematocrit 34, platelet count 184,000. Sodium 141, potassium 3.3, chlorides 110, CO2 24, anion gap 7, BUN 34, creatinine 1.40. The patient chest x-ray showed diffuse interstitial changes and bibasilar patchy airspace disease. Progress note dated 05/22/2021. 70-year-old male, again seen in room 251. The patient was admitted with a diagnosis of hematuria and dehydration on 05/12/2021. The patient came to the intensive care unit on 05/17/2021. This was because of respiratory failure, and he was intubated on the same day. 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 For that, he received IVIG for 5 days. The patient remains on the mechanical ventilator. He did undergo bronchoscopy on 05/18/2021. The patient was found to have ESBL Klebsiella pneumoniae. The patient is currently on meropenem. Currently, ventilator settings include the volume assist control, rate of 34, t idal volume or 30, FiO2 50%, and PEEP of 8. Blood gases show pO2 of 66, pCO2 43, pH 7.43. The patient is on saline at 25 mL an hour, propofol at 50 mcg/kg/m, and vital high protein at 39 mL an hour, which is goal. White count 8.9, hemoglobin 11.8, hematocrit 36, platelet count 197,000. Sodium 142, potassium 4, chlorides 110, CO2 24, anion gap 8, BUN 34, creatinine 1.27. AST 80, ALT 55. Albumin 2.4. Chest x-ray shows bilateral lower lobe infiltrates and atelectasis. The chest x-ray is essentially unchanged. Objective - Vital Signs Vital signs: Vital Signs Temp 100.5 F H 05/22/21 08:00 Pulse 95 05/22/21 08:00 Resp 34 H 05/22/21 08:00 BP 110/72 05/22/21 02:00 Pulse Ox 91 L 05/22/21 08:00 Intake & Output 05/21/21 05/22/21 05/22/21 18:59 06:59 18:59 Intake Total 7568.242 5581.113 223.173 Output Total 1250 1550 100 Balance -193.112 -406.887 123.173 Weight 90.9 kg 89.9 kg Intake: IV 595 325 25 Sodium Chloride 0.9% 1, 295 325 25 000 ml @ 25 mls/hr IV . Q24H [facility] Rx#:[id number] magnesium 300 Intake, IV Titration 176.888 251.113 129.173 Amount propofoL 1,000 mg In 176.888 251.113 129.173 Empty Bag 1 bag @ Titrate IV .Q0M [facility] Rx#: [id number] Tube Feeding 285 507 39 Other 60 30 Output: Urine 1250 1550 100 Other: Voiding Method Indwelling Catheter Indwelling Catheter Indwelling Catheter ABP, PAP, CO, CI - Last Documented Arterial Blood Pressure 118/73 - Exam No acute distress, intubated, and mechanically ventilated, sedated, with an ora lly placed endotracheal tube. HEENT examination is grossly unremarkable. Neck supple. Full range of motion. No adenopathy thyromegaly or neck vein distention. Cardiovascular examination reveals regular rhythm rate. S1-S2 normal. No S3 or S4. No discernible murmur noted. Heart sounds are distant. Heart rate 95 bpm. Lungs reveal bilateral coarse rhonchi. No wheezes. No crackles. Breath sounds equal bilaterally. Saturations are 91% Abdomen soft bowel sounds are heard. No masses or tenderness. Extremities are intact. No cyanosis or clubbing. Mild edema is noted. Skin is without rash or lesion. Neurologic examination is difficult to assess as the patient's currently sedated with propofol. - Labs CBC & Chem 7: 05/22/21 03:55 05/22/21 03:55 Labs: Abnormal Lab Results - Last 24 Hours (Table) 05/17/21 05/21/21 05/21/21 Range/Units 11:50 10:23 12:30 RBC (4.30-5.90) m/uL Hgb (13.0-17.5) gm/dL Hct (39.0-53.0) % Lymphocytes # (1.0-4.8) k/uL ABG pO2 (83-108) mmHg ABG HCO3 (21-25) mmol/L ABG Total CO2 (19-24) mmol/L ABG O2 Saturation (94-97) % Chloride (98-107) mmol/L BUN (9-20) mg/dL Creatinine (0.66-1.25) mg/dL Glucose (74-99) mg/dL POC Glucose (mg/dL) 198 H (75-99) mg/dL Magnesium 1.4 L (1.6-2.3) mg/dL AST (17-59) U/L ALT (4-49) U/L Alkaline Phosphatase (38-126) U/L Albumin (3.5-5.0) g/dL CSF Albumin 49.5 H (0.0 - 35.0) mg/dL CSF IgG (MS) 16.8 H (0.0 - 3.4) mg/dL Serum Albumin 2,950 L (3500 - 5200) mg/dL IgG 2,880 H (700 - 1600) mg/dL 05/21/21 05/22/21 05/22/21 Range/Units 18:33 00:19 03:55 RBC 3.86 L (4.30-5.90) m/uL Hgb 11.8 L (13.0-17.5) gm/dL Hct 36.0 L (39.0-53.0) % Lymphocytes # 0.9 L (1.0-4.8) k/uL ABG pO2 (83-108) mmHg ABG HCO3 (21-25) mmol/L ABG Total CO2 (19-24) mmol/L ABG O2 Saturation (94-97) % Chloride (98-107) mmol/L BUN (9-20) mg/dL Creatinine (0.66-1.25) mg/dL Glucose (74-99) mg/dL POC Glucose (mg/dL) 248 H 155 H (75-99) mg/dL Magnesium (1.6-2.3) mg/dL AST (17-59) U/L ALT (4-49) U/L Alkaline Phosphatase (38-126) U/L Albumin (3.5-5.0) g/dL CSF Albumin (0.0 - 35.0) mg/dL CSF IgG (MS) (0.0 - 3.4) mg/dL Serum Albumin (3500 - 5200) mg/dL IgG (700 - 1600) mg/dL 05/22/21 05/22/21 05/22/21 Range/Units 03:55 05:35 05:51 RBC (4.30-5.90) m/uL Hgb (13.0-17.5) gm/dL Hct (39.0-53.0) % Lymphocytes # (1.0-4.8) k/uL ABG pO2 66 L (83-108) mmHg ABG HCO3 28 H (21-25) mmol/L ABG Total CO2 30 H (19-24) mmol/L ABG O2 Saturation 92.9 L (94-97) % Chloride 110 H (98-107) mmol/L BUN 34 H (9-20) mg/dL Creatinine 1.27 H (0.66-1.25) mg/dL Glucose 177 H (74-99) mg/dL POC Glucose (mg/dL) 160 H (75-99) mg/dL Magnesium (1.6-2.3) mg/dL AST 80 H (17-59) U/L ALT 55 H (4-49) U/L Alkaline Phosphatase 133 H (38-126) U/L Albumin 2.4 L (3.5-5.0) g/dL CSF Albumin (0.0 - 35.0) mg/dL CSF IgG (MS) (0.0 - 3.4) mg/dL Serum Albumin (3500 - 5200) mg/dL IgG (700 - 1600) mg/dL Microbiology - Last 24 Hours (Table) 05/17/21 11:50 CSF Gram Stain - Final Cerebral Spinal Fluid CSF Culture - Final Assessment and Plan Assessment: 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 Right lower lobe pneumonia secondary to ESBL Klebsiella, currently on meropenem. Status post bronchoscopy, 05/18/2021. Hematuria, with possible bladder malignancy, currently being evaluated by urology. History of chronic atrial fibrillation. [id number] history of tobacco use. Benign essential hypertension. Type 2 diabetes mellitus. Chronic renal insufficiency. Plan: Plan dated 05/21/2021. The patient remains on the mechanical ventilator. He is not yet ready to be weaned from mechanical ventilation. The patient continues on IVIG as per neurology. The patient continues on GI and DVT prophylaxis. The bronchial washing showed evidence of ESBL Klebsiella, and the antibiotics were changed from Zosyn to meropenem. We will continue tube feedings. Additional recommendations and suggestions are forthcoming. Prognosis is guarded. We will continue to follow and make recommendations where appropriate. Plan dated 05/22/2021. The patient remains on the mechanical ventilator. We will attempt a daily interruption of sedation, and a spontaneous breathing trial, with a pressure support of 10 and CPAP of 5. The patient did receive 5 days of IVIG. The patient's currently on meropenem for his Klebsiella found in the bronchoscopy wash, on May 18. The patient remains on propofol at 50 mcg/kg/m. He is getting nutrition at goal. Overall prognosis is guarded. We'll continue to follow make recommendations where appropriate. Time with Patient: Greater than 30
[2021-05-22 11:18] LABS: Glucose,Whole Blood 237 mg/dL (75-99)
--- NOTE | 2021-05-22 17:04 | P.PN ---
Subjective Progress Note Date: 05/22/21 Principal diagnosis: This is a 70-year-old gentleman who was admitted with progressive weakness and respiratory distress. He is diagnosed to have Guillain-Bergman syndrome and also pneumonia. We are consulted for management of atrial fibrillation. Currently patient is on amiodarone, metoprolol and liquids. His rate is fairly controlled. He is making slow progress with his respiratory status. From [facility] standpoint we'll continue current medical therapy. 05/22/2021: Patient still is intubated and on respiratory support. Remained in atrial fibrillation with controlled ventricular response. Patient remains on amiodarone and metoprolol. Continue current medical therapy. Continue rest of the management Objective - Vital Signs Vital signs: Vital Signs Temp 100.5 F H 05/22/21 08:00 Pulse 109 H 05/22/21 15:11 Resp 34 H 05/22/21 15:00 BP 110/72 05/22/21 02:00 Pulse Ox 89 L 05/22/21 15:00 Intake & Output 05/21/21 05/22/21 05/22/21 18:59 06:59 18:59 Intake Total 8323.659 9775.113 802.678 Output Total 1250 1550 770 Balance -193.112 -406.887 32.678 Weight 90.9 kg 89.9 kg Intake: IV 595 325 225 Sodium Chloride 0.9% 1, 295 325 225 000 ml @ 25 mls/hr IV . Q24H [facility] Rx#:[id number] magnesium 300 Intake, IV Titration 176.888 251.113 136.678 Amount propofoL 1,000 mg In 176.888 251.113 136.678 Empty Bag 1 bag @ Titrate IV .Q0M [facility] Rx#: [id number] Tube Feeding 285 507 351 Other 60 90 Output: Urine 1250 1550 770 Other: Voiding Method Indwelling Catheter Indwelling Catheter Indwelling Catheter ABP, PAP, CO, CI - Last Documented Arterial Blood Pressure 100/61 - Exam GENERAL EXAM: Patient is intubated on respirator HEENT: Normocephalic. NECK: No masses, no nuchal rigidity. CHEST: No chest wall deformity. LUNGS: Diminished air entry HEART: S1 and S2 normal ABDOMEN: No hepatosplenomegaly, normal bowel sounds, no guarding or rigidity. SKIN: No rashes CENTRAL NERVOUS SYSTEM: Intubated and sedated EXTREMITIES: No cyanosis, clubbing or edema. - Labs CBC & Chem 7: 05/22/21 03:55 05/22/21 03:55 Labs: Abnormal Lab Results - Last 24 Hours (Table) 05/21/21 05/22/21 05/22/21 Range/Units 18:33 00:19 03:55 RBC 3.86 L (4.30-5.90) m/uL Hgb 11.8 L (13.0-17.5) gm/dL Hct 36.0 L (39.0-53.0) % Lymphocytes # 0.9 L (1.0-4.8) k/uL ABG pO2 (83-108) mmHg ABG HCO3 (21-25) mmol/L ABG Total CO2 (19-24) mmol/L ABG O2 Saturation (94-97) % Chloride (98-107) mmol/L BUN (9-20) mg/dL Creatinine (0.66-1.25) mg/dL Glucose (74-99) mg/dL POC Glucose (mg/dL) 248 H 155 H (75-99) mg/dL AST (17-59) U/L ALT (4-49) U/L Alkaline Phosphatase (38-126) U/L Albumin (3.5-5.0) g/dL 05/22/21 05/22/21 05/22/21 Range/Units 03:55 05:35 05:51 RBC (4.30-5.90) m/uL Hgb (13.0-17.5) gm/dL Hct (39.0-53.0) % Lymphocytes # (1.0-4.8) k/uL ABG pO2 66 L (83-108) mmHg ABG HCO3 28 H (21-25) mmol/L ABG Total CO2 30 H (19-24) mmol/L ABG O2 Saturation 92.9 L (94-97) % Chloride 110 H (98-107) mmol/L BUN 34 H (9-20) mg/dL Creatinine 1.27 H (0.66-1.25) mg/dL Glucose 177 H (74-99) mg/dL POC Glucose (mg/dL) 160 H (75-99) mg/dL AST 80 H (17-59) U/L ALT 55 H (4-49) U/L Alkaline Phosphatase 133 H (38-126) U/L Albumin 2.4 L (3.5-5.0) g/dL 05/22/21 Range/Units 11:16 RBC (4.30-5.90) m/uL Hgb (13.0-17.5) gm/dL Hct (39.0-53.0) % Lymphocytes # (1.0-4.8) k/uL ABG pO2 (83-108) mmHg ABG HCO3 (21-25) mmol/L ABG Total CO2 (19-24) mmol/L ABG O2 Saturation (94-97) % Chloride (98-107) mmol/L BUN (9-20) mg/dL Creatinine (0.66-1.25) mg/dL Glucose (74-99) mg/dL POC Glucose (mg/dL) 237 H (75-99) mg/dL AST (17-59) U/L ALT (4-49) U/L Alkaline Phosphatase (38-126) U/L Albumin (3.5-5.0) g/dL Assessment and Plan (1) Guillain Bergman syndrome Current Visit: Yes Status: Acute Code(s): G61.0 - GUILLAIN-BARRE SYNDROME SNOMED Code(s): 10993492 (2) Chronic atrial fibrillation Current Visit: Yes Status: Acute Code(s): I48.20 - CHRONIC ATRIAL FIBRILLATI ON, UNSPECIFIED SNOMED Code(s): 562049030 (3) Pneumonia Current Visit: Yes Status: Acute Code(s): J18.9 - PNEUMONIA, UNSPECIFIED ORGANISM SNOMED Code(s): 973772364 Plan: Patient's heart rate is well controlled with current medical therapy. 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 We'll follow
[2021-05-22 17:42] LABS: Glucose,Whole Blood 215 mg/dL (75-99)
[2021-05-22] MEDS: ATORVASTATIN 80 MG TAB PO SCH (19:50)
[2021-05-22] MEDS: INSULIN DETEMIR (LEVEMIR) 100 UNIT/ML SYR SQ SCH (19:55)
[2021-05-23] MEDS: MEROPENEM 2 GM in SODIUM CHLORIDE 0.9% 100 ML IVPB SCH ×4 (00:30→23:49)
[2021-05-23] MEDS: INSULIN ASPART (NovoLOG) 100 UNIT/ML VIAL SQ SCH ×5 (00:30→23:49)
[2021-05-23 02:41] LABS: Glucose,Whole Blood 205 mg/dL (75-99)
[2021-05-23] MEDS: IPRATROPIUM-ALBUTEROL 3 ML NEB INHALATION SCH ×6 (02:57→19:03)
[2021-05-23 05:00] LABS: Basophils % (A) 0 %; Eosinophils # (A) 0.1 k/uL (0-0.7); Eosinophils % (A) 1 %; HCT 38.1 % (39.0-53.0); HGB 12.5 gm/dL (13.0-17.5); Lymphocytes # (A) 1.1 k/uL (1.0-4.8); Lymphocytes % (A) 10 %; MCH 31.2 pg (25.0-35.0); MCHC 32.7 g/dL (31.0-37.0); MCV 95.5 fL (80.0-100.0); Mean Platelet Volume 8.6; Monocytes # (A) 0.8 k/uL (0-1.0); Monocytes % (A) 7 %; Neutrophils % (A) 80 %; Platelet Count 227 k/uL (150-450); RBC 3.99 m/uL (4.30-5.90); RDW 14.5 % (11.5-15.5); WBC 11.2 k/uL (3.8-10.6)
[2021-05-23 05:38] LABS: ABG Base Excess 6.5 mmol/L; ABG HCO3 31 mmol/L (21-25); ABG Oxygen Saturation 92.8 % (94-97); ABG PCO2 44 mmHg (35-45); ABG PH 7.45 (7.35-7.45); ABG PO2 66 mmHg (83-108); ABG TCO2 32 mmol/L (19-24)
[2021-05-23 05:40] LABS: Allen Test Performed? no
[2021-05-23 05:48] LABS: Albumin 2.5 g/dL (3.5-5.0); Calcium 8.7 mg/dL (8.4-10.2); Magnesium 1.7 mg/dL (1.6-2.3); Total Bilirubin 0.5 mg/dL (0.2-1.3)
[2021-05-23] MEDS: MAGNESIUM SULFATE-D5W PMX 1 GM in DEXTROSE/WATER 1 100ML.BAG IVPB SCH ×2 (05:53→07:05)
--- NOTE | 2021-05-23 08:18 | XR ---
EXAMINATION TYPE: XR chest 1V portable DATE OF EXAM: 05/23/2021 COMPARISON: 05/22/2021 HISTORY: SOB, Follow Up FINDINGS: Indwelling tubes and catheters are unchanged. Perihilar and basilar infiltrates noted with small effusions seen. Stable appearance of the cardio-mediastinal structures at this time. Pleural effusion unchanged. IMPRESSION: 1. Stable portable chest. Clinical correlation and follow up until resolution is recommended.
[2021-05-23] MEDS: APIXABAN 5 MG TAB PO SCH ×2 (08:55→19:33)
[2021-05-23] MEDS: METOPROLOL TARTRATE 50 MG TAB PO SCH ×2 (08:55→19:32)
[2021-05-23] MEDS: AMIODARONE 200 MG TAB PO SCH ×2 (08:55→19:33)
[2021-05-23] MEDS: FOLIC ACID 1 MG TAB PO SCH (08:55)
[2021-05-23] MEDS: CHLORHEXIDINE GLUCONATE 15 ML CUP MUCOUS MEM SCH ×2 (08:55→19:33)
[2021-05-23] MEDS: PANTOPRAZOLE 40 MG/10 ML VIAL IVP SCH (08:55)
[2021-05-23] MEDS: PYRIDOXINE 50 MG TAB PO SCH (08:56)
[2021-05-23] MEDS: SERTRALINE 50 MG TAB PO SCH (08:57)
[2021-05-23] MEDS: NICOTINE 14MG/24HR PATCH TRANSDERM SCH (08:57)
[2021-05-23] MEDS ORDERED: propofoL 0 ML IV ONE (09:01)
--- NOTE | 2021-05-23 09:17 | P.PN ---
Subjective Progress Note Date: 05/23/21 Principal diagnosis: Respiratory failure. Reevaluated today on 05/18/2021, patient remains in the ICU, intubated and mechanically ventilated. However patient was noted to develop worsening chest x-ray and the right lower lobe collapse/atelectasis, and intermittently we have been increasing his FiO2 with worsening chest x-ray, hence I recommended bronchoscopy today and he underwent a bronchoscopy with bronchoalveolar lavage of the right middle lobe, right lower lobe, and a mucous plugs worse suctioned out of the airway especially on the right side. Procedure was well-tolerated, and the plan is to go down on his FiO2. He was initially on 50%, we had to increase his FiO2 up to 80%. He is now back on assist control mode of mechanical ventilation rate 30 tidal volume 430 FiO2 I 50% and PEEP of 8. ABG showed a pO2 of 76 pCO2 of 38 pH of 7.35. Peak airway pressure is 26 blood pressure is 23. Patient remains on multiple drips including norepinephrine, propofol, 45 mcg/kg/m, he is also on norepinephrine at 7 mcg/m, IV fluid at 75 mL per hour in the form of 0.9 normal saline. Patient continues to have persistent hematuria. Chest x-ray as noted above showed mostly right lower lobe collapse. And atelectasis. 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 Patient remains on IVIG. Patient is receiving enteral feeding in the form of vital HPI at 14 mL per hour. Considering the worsening of his pulmonary status today, patient was not felt to be ideal to consider weaning or to assess off sedation. Reevaluated today on 05/19/2021, patient remains in the ICU, intubated and mechanically ventilated. Patient is on assist control rate of 3 to tidal volume is 430 FiO2 of 65% and PEEP of 8. ABG showed a pO2 of 98 pCO2 of 50 pH of 7.26. Hence I increased the rate to 34, I have also cut down the FiO2 to 55%, PEEP at 8. And tidal volumes the same. Patient remains on propofol at 25 mcg/kg/m, he is also on norepinephrine at 0.06 mcg/kg/m. Amiodarone at 0.5, patient had atrial fibrillation with RVR yesterday, he is known to have history of chronic atrial fibrillation. He is also on heparin drip. Patient is on vital HPI at 24 mL per hour. Chest x-ray is showing significant improvement in his right lower lobe atelectasis/possible pneumonia. Remains on antibiotics, cultures from his bronchoscopy and BAL are pending. WBC count is 4.9 hemoglobin is 12.2. PTT is therapeutic at 58. Electrolytes are normal, renal profile is improving with a BUN of 33 creatinine 1.46. Blood sugar is 171. Reevaluated today on 05/20/2021, patient remains in the ICU, intubated and mechanically ventilated. Patient is on assist control rate of 34, tidal volume 430 FiO2 55% and a cardiac down to 50% today, he is on a PEEP of 8. ABG showed a pO2 of 126 pCO2 of 39 pH of 7.37. Patient is sedated, he is on propofol at 45 mcg/kg/m, he is on heparin for his atrial fibrillation he is on vital HPI at 24 mL/h/goal his IV fluid is at 75 mL per hour and I cut it down to KVO mostly because his chest x-ray is showing mild interstitial edema, and airspace disease bilaterally. Patient will be given a dose of Lasix 40 mg IV push. His WBC count is 8.6 hemoglobin is 11.1. Chest x-ray showed bibasilar atelectas is/infiltrates, and slight interstitial edema. Patient was awakened yesterday, and he was appropriate, followed simple instructions according to the nurse. His BAL from the right lower lobe and right middle lobe is showing gram-negative bacilli, and many polymorphonuclear leukocytes. Final identification is pending. Patient is empirically on Zosyn. Renal functioning is steadily improving, creatinine today is 1.20, this was as high as 1.55 only 4 days ago Progress note dated 05/21/2021. This is a 70-year-old male, seen in room 251. The patient was admitted on 05/12/2021, with hematuria and dehydration. The patient came to the intensive care unit on 05/17/2021, for respiratory failure, and was intubated on the same day. Patient was apparently found have Guillain-[place] syndrome. The patient underwent bronchoscopy on 05/18/2021. The bronchoscopy washings revealed ESBL Klebsiella. The patient is currently on meropenem. Zosyn was. The patient remains on the mechanical ventilator, with a volume assist control mode, rate 34, tidal volume 430, FiO2 50%, PEEP of 8. Arterial blood gases show a PaO2 of 62, pCO2 38, pH is 7.44. The patient's currently on saline at 25 mL an hour, propofol at 35 mcg/kg/m, and vital HP at 24 mL an hour, which is goal. White count 7.3, hemoglobin 11.3, hematocrit 34, platelet count 184,000. Sodium 141, potassium 3.3, chlorides 110, CO2 24, anion gap 7, BUN 34, creatinine 1.40. The patient chest x-ray showed diffuse interstitial changes and bibasilar patchy airspace disease. Progress note dated 05/22/2021. 70-year-old male, again seen in room 251. The patient was admitted with a diagnosis of hematuria and dehydration on 05/12/2021. The patient came to the intensive care unit on 05/17/2021. This was because of respiratory failure, and he was intubated on the same day. 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 For that, he received IVIG for 5 days. The patient remains on the mechanical ventilator. He did undergo bronchoscopy on 05/18/2021. The patient was found to have ESBL Klebsiella pneumoniae. The patient is currently on meropenem. Currently, ventilator settings include the volume assist control, rate of 34, t idal volume or 30, FiO2 50%, and PEEP of 8. Blood gases show pO2 of 66, pCO2 43, pH 7.43. The patient is on saline at 25 mL an hour, propofol at 50 mcg/kg/m, and vital high protein at 39 mL an hour, which is goal. White count 8.9, hemoglobin 11.8, hematocrit 36, platelet count 197,000. Sodium 142, potassium 4, chlorides 110, CO2 24, anion gap 8, BUN 34, creatinine 1.27. AST 80, ALT 55. Albumin 2.4. Chest x-ray shows bilateral lower lobe infiltrates and atelectasis. The chest x-ray is essentially unchanged. Progress note dated 05/23/2021. 70-year-old male, again seen in room 251. The patient was initially admitted with a diagnosis of hematuria and dehydration on May 12. He came to the intensive care unit on 05/17/2021. The patient was intubated on the same day for respiratory failure. The patient was discovered to have L-G-B syndrome. The patient received IVIG for 5 days. He remains on the mechanical ventilator. Yesterday, he had a brief daily interruption of sedation but did poorly. He needed to be re-sedated. Currently, he's on volume assist control, rate 34, t idal volume 430, FiO2 50%, and PEEP of 8. Blood gases show pO2 66, pCO2 44, and pH of 7.45. The patient's currently on propofol at 40 mcg/kg/m, saline at 25 mL an hour, and vital high protein at goal, which is 39 mL an hour. The patient was also discovered to have ESBL Klebsiella pneumoniae, and is currently on meropenem. Labs include a white count of 11.2, hemoglobin 12.5, hematocrit 38.1, platelet count 227,000. Sodium 146, potassium 4, chlorides 109, CO2 29, anion gap 8, BUN 37, and creatinine 1.21. AST is 102 with an ALT of 75. Chest x-ray shows bilateral perihilar and basilar infiltrates, and is essentially unchanged from the day prior. Objective - Vital Signs Vital signs: Vital Signs Temp 100.1 F H 05/23/21 08:00 Pulse 99 05/23/21 08:00 Resp 34 H 05/23/21 08:00 BP 128/89 05/23/21 08:00 Pulse Ox 91 L 05/23/21 08:00 Intake & Output 05/22/21 05/23/21 05/23/21 18:59 06:59 18:59 Intake Total 930.678 587.314 158 Output Total 770 890 320 Balance 160.678 -302.686 -162 Weight 92.17 kg Intake: IV 275 150 50 Sodium Chloride 0.9% 1, 275 150 50 000 ml @ 25 mls/hr IV . Q24H [facility] Rx#:[id number] Intake, IV Titration 136.678 143.314 Amount propofoL 1,000 mg In 136.678 143.314 Empty Bag 1 bag @ Titrate IV .Q0M [facility] Rx#: [id number] Tube Feeding 429 234 78 Other 90 60 30 Output: Urine 770 890 320 Other: Voiding Method Indwelling Catheter Indwelling Catheter ABP, PAP, CO, CI - Last Documented Arterial Blood Pressure 118/69 - Exam No acute distress, intubated, and mechanically ventilated, sedated, with an orally placed endotracheal tube. HEENT examination is grossly unremarkable. Neck supple. Full range of motion. No adenopathy thyromegaly or neck vein distention. Cardiovascular examination reveals regular rhythm rate. S1-S2 normal. No S3 or S4. No discernible murmur noted. Heart sounds are distant. Heart rate 99 bpm. Lungs reveal bilateral coarse rhonchi. No wheezes. No crackles. Breath sounds equal bilaterally. Saturations are 92% Abdomen soft bowel sounds are heard. No masses or tenderness. Extremities are intact. No cyanosis or clubbing. Mild edema is noted. Skin is without rash or lesion. Neurologic examination is difficult to assess as the patient's currently sedated with propofol. - Labs CBC & Chem 7: 05/23/21 04:15 05/23/21 04:15 Labs: Abnormal Lab Results - Last 24 Hours (Table) 05/22/21 05/22/21 05/23/21 Range/Units 11:16 17:41 00:02 WBC (3.8-10.6) k/uL RBC (4.30-5.90) m/uL Hgb (13.0-17.5) gm/dL Hct (39.0-53.0) % Neutrophils # (1.3-7.7) k/uL ABG pO2 (83-108) mmHg ABG HCO3 (21-25) mmol/L ABG Total CO2 (19-24) mmol/L ABG O2 Saturation (94-97) % Sodium (137-145) mmol/L Chloride (98-107) mmol/L BUN (9-20) mg/dL Glucose (74-99) mg/dL POC Glucose (mg/dL) 237 H 215 H 205 H (75-99) mg/dL AST (17-59) U/L ALT (4-49) U/L Alkaline Phosphatase (38-126) U/L Albumin (3.5-5.0) g/dL 05/23/21 05/23/21 05/23/21 Range/Units 04:15 04:15 05:36 WBC 11.2 H (3.8-10.6) k/uL RBC 3.99 L (4.30-5.90) m/uL Hgb 12.5 L (13.0-17.5) gm/dL Hct 38.1 L (39.0-53.0) % Neutrophils # 9.0 H (1.3-7.7) k/uL ABG pO2 66 L (83-108) mmHg ABG HCO3 31 H (21-25) mmol/L ABG Total CO2 32 H (19-24) mmol/L ABG O2 Saturation 92.8 L (94-97) % Sodium 146 H (137-145) mmol/L Chloride 109 H (98-107) mmol/L BUN 37 H (9-20) mg/dL Glucose 218 H (74-99) mg/dL POC Glucose (mg/dL) (75-99) mg/dL AST 102 H (17-59) U/L ALT 75 H (4-49) U/L Alkaline Phosphatase 139 H (38-126) U/L Albumin 2.5 L (3.5-5.0) g/dL Assessment and Plan Assessment: Acute hypoxemic respiratory failure secondary to Liv[place]k-Rvhmzjvh-Vgmvb syndrome, status post intubation and mechanical ventilation, on 05/17/2021 Progressive/ascending muscle weakness with sensory loss and areflexia, secondary to L-G-B syndrome. Right lower lobe pneumonia secondary to ESBL Klebsiella, currently on meropenem. Status post bronchoscopy, 05/18/2021. Hematuria, with possible bladder malignancy, currently being evaluated by urology. History of chronic atrial fibrillation. [id number] history of tobacco use. Benign essential hypertension. Type 2 diabetes mellitus. Chronic renal insufficiency. Plan: Plan dated 05/21/2021. The patient remains on the mechanical ventilator. He is not yet ready to be weaned from mechanical ventilation. The patient continues on IVIG as per neurology. The patient continues on GI and DVT prophylaxis. The bronchial was kristopher showed evidence of ESBL Klebsiella, and the antibiotics were changed from Zosyn to meropenem. We will continue tube feedings. Additional recommendations and suggestions are forthcoming. Prognosis is guarded. We will continue to follow and make recommendations where appropriate. Plan dated 05/22/2021. The patient remains on the mechanical ventilator. We will attempt a daily interruption of sedation, and a spontaneous breathing trial, with a pressure support of 10 and CPAP of 5. The patient did receive 5 days of IVIG. The patient's currently on meropenem for his Klebsiella found in the bronchoscopy wash, on May 18. The patient remains on propofol at 50 mcg/kg/m. He is getting nutrition at goal. Overall prognosis is guarded. We'll continue to follow make recommendations where appropriate. Plan dated 05/23/2021. The patient remains on the ventilator. The patient had a brief daily interruption of sedation yesterday, but required re-sedation. The patient appears not to be ready for significant weaning and extubation. The patient did receive 5 days of IVIG. The patient is currently on meropenem for Klebsiella pneumoniae, ESBL, found on bronchoscopy washings from May 18. The patient remains on propofol at 40 mcg/kg/m. The patient is receiving tube feedings. Additional recommendations and suggestions are forthcoming. Prognosis is guarded. We will continue to follow make recommendations where appropriate. Time with Patient: Greater than 30
--- NOTE | 2021-05-23 10:20 | P.PN ---
Subjective Progress Note Date: 05/21/21 Patient is a 70-year-old male with a known history of hypertension, hyperlipidemia, diabetes type 2 insulin-dependent, history of MN status post cardiac catheterization, currently everyday smoker and BPH presented to ER with complaints of left hip pain and also left shoulder pain. Pain gets worse with movement. Patient denies any recent falls. Patient initially presented to ER and had CT abdominal pelvis which showed moderate bilateral hydronephrosis and hydroureter. This could relate to reflux. Appearance not changed compared with exam. Dilated gallbladder increased compared to holograms history of cholecystitis. There are few calcified gallstones. Pancreatic calcifications appear unchanged and consistent with chronic pancreatitis. Sigmoid diverticulosis hypertrophic changes in the urin sumanth bladder similar to old exam. Nodular density at the base of the bladder could be enlarged prostate or bladder mass. Unchanged. Enlarged prostate. There is a 12 mm stellate nodule in the subpleural lateral right lower lobe that appears to be new compared to old exam. Follow-up recommended. X-ray of the shoulder no acute fracture or dislocation. Moderate narrowing and mild to moderate spurring at the acromioclavicular joint is more prominent from prior. Hip x-ray showed mild to moderate degenerative joint disease. Laboratory data showed sodium 135 potassium 4.3 chloride 102 bicarb is 21 BUN 20 and creatinine 1.47 blood sugar is 267 Urinalysis showed large blood nitrate negative and large leukocyte esterase with elevated RBCs and WBCs. WBC 11.5 hemoglobin 14.3 and platelets 277. Coronavirus PCR not detected. 05/13/2021 Patient is currently lying in the bed. Awake alert and still complaining of left lower abdominal pain and hip pain. X-ray of the hip showed mild degenerative changes without acute fracture or dislocation. Overlying soft tissue appears unremarkable. Vascular calcifications noted. Otherwise no acute process identified. Patient admitted on pain management. Urology has seen the patient and recommend outpatient follow-up for cystoscopy. Resume Eliquis at this time. PT OT consult and continue with pain management. Patient has been afebrile. No headache or dizziness or lightheadedness. No dysuria or hematuria. Urine culture is pending. No chest pain or shortness of breath. No cough or sputum production. Patient is a 70-year-old male with a known history of hypertension, hyperlipidemia, diabetes type 2 insulin-dependent, history of MN status post cardiac catheterization, currently everyday smoker and BPH presented to ER with complaints of left hip pain and also left shoulder pain. Pain gets worse with movement. Patient denies any recent falls. Patient initially presented to ER and had CT abdominal pelvis which showed moderate bilateral hydronephrosis and hydroureter. This could relate to reflux. Appearance not changed compared with exam. Dilated gallbladder increased compared to holograms history of cholecystitis. There are few calcified gallstones. Pancreatic calcifications appear unchanged and consistent with chronic pancreatitis. Sigmoid diverticulosis hypertrophic changes in the urinary bladder similar to old exam. Nodular density at the base of the bladder could be enlarged prostate or bladder mass. Unchanged. Enlarged prostate. There is a 12 mm stellate nodule in the subpleural lateral right lower lobe that appears to be new compared to old exam. Follow-up recommended. X-ray of the shoulder no acute fracture or dislocation. Moderate narrowing and mild to moderate spurring at the acromioclavicular joint is more prominent from prior. Hip x-ray showed mild to moderate degenerative joint disease. Laboratory data showed sodium 135 potassium 4.3 chloride 102 bicarb is 21 BUN 20 and creatinine 1.47 blood sugar is 267 Urinalysis showed large blood nitrate negative and large leukocyte esterase with elevated RBCs and WBCs. WBC 11.5 hemoglobin 14.3 and platelets 277. Coronavirus PCR not detected. 05/13/2021 Patient is currently lying in the bed. Awake alert and still complaining of left lower abdominal pain and hip pain. X-ray of the hip showed mild degenerative changes without acute fracture or dislocation. Overlying soft tissue appears unremarkable. Vascular calcifications noted. Otherwise no acute process identified. Patient admitted on pain management. Urology has seen the patient and recommend outpatient follow-up for cystoscopy. Resume Eliquis at this time. PT OT consult and continue with pain management. Subjective: resuming the care from above 05/14/2021 This is a pleasant 70 years old male who presents on 05/12 for limb pain and inability to walk. Patient complains from weakness in all 4 extremities but more pronounced in the left leg as he states he barely can lift it off the bed. Also he has decreased sensation when examined his left leg. However he complains also to some degree of weakness from all 4 extremities motor he could not move his both arms above his head however passively I could move them up and patient had good tone in his muscles and he could hold them up above his head but then he will drop down once released Patient denies any abdominal pain today and he states that his hematuria has been cleared today back to yellow urine. Patient also feels generally weak and he might need to go to rehab. Patient hematuria problem is not in the room and he has his urologist seen prior to hospitalization and he is supposed to get stress test with automobile glass technician this, the Friday as part of preop evaluation. Also patient states that he was on baby aspirin at home but he ran out of it about one week prior to hospitalization. Also he is on Eliquis Patient told me that he has A. fib and that's why he takes Eliquis at home and that has been taking Eliquis and aspirated one week ago Subjective: Resuming the care of the patient again starting to 05/18/2021, after Dr. Jefferson. Patient currently in the ICU intubated and sedated. 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 With pulmonary/critical care team following him closely and help with vent management, today his FiO2 increased 50% up to 8% after pO2 was low 76. Rest of ABG was normal. He remains on PEEP of 8. Also patient is receiving IVIG. Today's the third dose. His lumbar puncture was consistent with his Gullian Juan syndrome with elevated opening up pressure at 30 cm of water . Also RBCs high 118, decreased protein 148, glucose is 104. Nucleated cells/WBC 1 only. Also patient developing low-grade fever and chest x-ray showing marked lower lobe infiltrate and his antibiotics was adjustment today ceftriaxone and to Zosyn. Patient remains critically ill. 05/19/2021 Patient re also he is developing hypotension requiring Levophed however he needs this dose today at 0.06 g per KG per minute. guerita in the ICU in critical condition intubated and sedated with pulmonary/critical care team are following him closely. Patient is developing respiratory failure secondary to his Gullina- Berri syndrome. And the neurology on the case and he is receiving IVIG He is a known case of A. fib on metoprolol and Eliquis, which was changed to heparin drip because he needed lumbar puncture. Metoprolol was held once he needed Levophed , so today he developed A. fib and RVR which is currently controlled with amiodarone 400 mg twice a day with automobile glass technician consulted and recommended echocardiogram. Also patient is on Zosyn for right basal versus bilateral basal pneumonia, also shown on today's chest x-ray. Remains intubated with FiO2 lower today to 55%, remains on PEEP of 8 like yesterday. He has no fever today. Leukocytosis slightly up 12.9, creatinine is stable at 1.4. 05/20/2021 Patient presents with weakness in all extremities motor on the left lower leg and decreased sensation, moved to the ICU on ) monitoring got deteriorated overnight and he had to be intubated because of worsening respiratory status. Neurology was already on the case and were following him closely. patient currently kept monitored in the ICU with pulmonary/critical care team helping with vent management. Also he is receiving IVIG under the kindness of neurology team, distal intubated and sedated which limits his examination. His leukocytosis improved to 8.6 today. Creatinine is stable at 1.4. He had no fever since yesterday. PEEP remains at 8, FiO2 remains at 50%, he is tachypneic. Sputum culture chronic gram-negative bacilli remains on Zosyn empirically pending final results of the culture. Is also an heparin drip just to liquids per automobile glass technician. Also IVIG. Also Pepcid. Also his A. fib controlled with amiodarone 400 mg on the top of home dose of metoprolol 50 mg. 05/21/2021 Patient is currently in the MICU. 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 Patient received immunoglobin therapy. Remains intubated. Assist control with tidal volume of 430 FiO2 50% and PEEP of 8. Patient had bronchoscopy with bronchial cultures showed ESBL Klebsiella. Patient is being continued meropenem. Sedation is on hold today morning. Laboratory showed WBC 7.3 hemoglobin 11.3 and platelets 184 sodium 141 potassium 3.3 chloride 110 BUN 34 and creatinine 1.4 albumin 2.3 Chest x-ray showed continued diffuse interstitial changes and focal patchy bibasilar airspace disease infiltrates. Possible trace left effusion also persists. Current medications reviewed. Current medications reviewed. Objective - Vital Signs Vital signs: Vital Signs Temp 99.4 F 05/21/21 16:00 Pulse 106 H 05/21/21 17:00 Resp 37 H 05/21/21 17:00 BP 94/71 05/21/21 17:00 Pulse Ox 91 L 05/21/21 17:00 Intake & Output 05/20/21 05/21/21 05/21/21 18:59 06:59 18:59 Intake Total 1313.305 818.115 992.888 Output Total 3535 950 1150 Balance -2221.695 -131.885 -157.112 Weight 90.9 kg 90.9 kg Intake: IV 375 270 570 Sodium Chloride 0.9% 1, 375 270 270 000 ml @ 25 mls/hr IV . Q24H [facility] Rx#:[id number] magnesium 300 Intake, IV Titration 536.305 194.115 176.888 Amount Magnesium Sulfate-D5w Pmx 100 1 gm In Dextrose/Water 1 100ml.bag @ 100 mls/hr IVPB Q1H [facility] Rx#: [id number] Piperacillin-Tazobactam 3 200 .375 gm In Sodium Chloride 0.9% 100 ml @ 25 mls/hr IVPB Q8HR [facility] Rx# :[id number] propofoL 1,000 mg In 236.305 194.115 176.888 Empty Bag 1 bag @ Titrate IV .Q0M [facility] Rx#: [id number] Tube Feeding 312 264 246 Other 90 90 Output: Urine 3535 950 1150 Other: Voiding Method Indwelling Catheter Indwelling Catheter Indwelling Catheter ABP, PAP, CO, CI - Last Documented Arterial Blood Pressure 124/66 - Exam - Exam -GENERAL: The patient is intubated and sedated HEENT: Pupils are round and equally reacting to light. EOMI. No scleral icterus. No conjunctival pallor. Normocephalic, atraumatic. No pharyngeal erythema. No thyromegaly. CARDIOVASCULAR: S1 and S2 present. No murmurs, rubs, or gallops. PULMONARY: Chest is clear to auscultation, no wheezing or crackles. ABDOMEN: Soft, nontender, nondistended, normoactive bowel sounds. No palpable organomegaly. MUSCULOSKELETAL: No joint swelling or deformity. EXTREMITIES: No cyanosis, clubbing, or pedal edema. -NEUROLOGICAL: Examination is limited by patient intubation. Pupils are equal and reactive to light. No facial asymmetry. Absent reflexes SKIN: No rashes. no petechiae. - Labs CBC & Chem 7: 05/23/21 04:15 05/23/21 04:15 Labs: Abnormal Lab Results - Last 24 Hours (Table) 05/17/21 05/20/21 05/21/21 Range/Units 11:50 23:56 04:00 RBC 3.62 L (4.30-5.90) m/uL Hgb 11.3 L (13.0-17.5) gm/dL Hct 34.0 L (39.0-53.0) % Lymphocytes # 0.9 L (1.0-4.8) k/uL ABG pO2 (83-108) mmHg ABG HCO3 (21-25) mmol/L ABG Total CO2 (19-24) mmol/L ABG O2 Saturation (94-97) % Potassium (3.5-5.1) mmol/L Chloride (98-107) mmol/L BUN (9-20) mg/dL Creatinine (0.66-1.25) mg/dL Glucose (74-99) mg/dL POC Glucose (mg/dL) 153 H (75-99) mg/dL Magnesium (1.6-2.3) mg/dL Albumin (3.5-5.0) g/dL CSF Albumin 49.5 H (0.0 - 35.0) mg/dL CSF IgG (MS) 16.8 H (0.0 - 3.4) mg/dL Serum Albumin 2,950 L (3500 - 5200) mg/dL IgG 2,880 H (700 - 1600) mg/dL 05/21/21 05/21/21 05/21/21 Range/Units 04:00 05:31 05:57 RBC (4.30-5.90) m/uL Hgb (13.0-17.5) gm/dL Hct (39.0-53.0) % Lymphocytes # (1.0-4.8) k/uL ABG pO2 62 L (83-108) mmHg ABG HCO3 26 H (21-25) mmol/L ABG Total CO2 27 H (19-24) mmol/L ABG O2 Saturation 92.6 L (94-97) % Potassium 3.3 L (3.5-5.1) mmol/L Chloride 110 H (98-107) mmol/L BUN 34 H (9-20) mg/dL Creatinine 1.40 H (0.66-1.25) mg/dL Glucose 157 H (74-99) mg/dL POC Glucose (mg/dL) 164 H (75-99) mg/dL Magnesium (1.6-2.3) mg/dL Albumin 2.3 L (3.5-5.0) g/dL CSF Albumin (0.0 - 35.0) mg/dL CSF IgG (MS) (0.0 - 3.4) mg/dL Serum Albumin (3500 - 5200) mg/dL IgG (700 - 1600) mg/dL 05/21/21 05/21/21 Range/Units 10:23 12:30 RBC (4.30-5.90) m/uL Hgb (13.0-17.5) gm/dL Hct (39.0-53.0) % Lymphocytes # (1.0-4.8) k/uL ABG pO2 (83-108) mmHg ABG HCO3 (21-25) mmol/L ABG Total CO2 (19-24) mmol/L ABG O2 Saturation (94-97) % Potassium (3.5-5.1) mmol/L Chloride (98-107) mmol/L BUN (9-20) mg/dL Creatinine (0.66-1.25) mg/dL Glucose (74-99) mg/dL POC Glucose (mg/dL) 198 H (75-99) mg/dL Magnesium 1.4 L (1.6-2.3) mg/dL Albumin (3.5-5.0) g/dL CSF Albumin (0.0 - 35.0) mg/dL CSF IgG (MS) (0.0 - 3.4) mg/dL Serum Albumin (3500 - 5200) mg/dL IgG (700 - 1600) mg/dL Microbiology - Last 24 Hours (Table) 05/17/21 11:50 CSF Gram Stain - Final Cerebral Spinal Fluid CSF Culture - Final Assessment and Plan Assessment: 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 Bladder mass versus enlarged prostate. Needs cystoscopy as an outpatient Chronic A. fib and RVR Bilateral moderate hydronephrosis Hematuria resolved now. Acute urinary tract infection. on antibiotic Hyperglycemia with uncontrolled diabetes type 2 insulin-dependent Hypomagnesemia Hypovolemic hyponatremia Acute kidney injury likely prerenal Chronic kidney disease stage III Paroxysmal atrial fibrillation on anticoagulation with Eliquis Hypertension Hyperlipidemia History of MN status post cardiac catheterization. Plan: This is a pleasant 70 years old male who presents with hematuria and generalized weakness and generalized pain. Left leg weakness and decreased sensation. Continue mechanical ventilation with the help of the pulmonary/critical care team will follow him closely Continue with IVIG as per neurology team will follow him closely as well Continue heparin drip and changed to Eliquis due to his history of A. fib. Continue with amiodarone and metoprolol. Cardiology on the case Patient declined meropenem. ID is on board. Urology on the case and patient informed to need cystoscopy and possible TURP as an outpatient and he verbalized understanding and acceptance. The risk of cancer explained Prior to intubation. Follow-up with automobile glass technician Dr. Snow for stress test. Labs and medication were reviewed. Monitor lytes and vitals. DVT and GI proph ylaxis. Further recommendations as per clinical course of the patient DVT prophylaxis: On Eliquis GI Prophylaxis: Pepcid PT/OT: deferred Prognosis is guarded Time with Patient: Greater than 30
--- NOTE | 2021-05-23 10:23 | P.PN ---
Subjective Progress Note Date: 05/22/21 Patient is a 70-year-old male with a known history of hypertension, hyperlipidemia, diabetes type 2 insulin-dependent, history of PA status post cardiac catheterization, currently everyday smoker and BPH presented to ER with complaints of left hip pain and also left shoulder pain. Pain gets worse with movement. Patient denies any recent falls. Patient initially presented to ER and had CT abdominal pelvis which showed moderate bilateral hydronephrosis and hydroureter. This could relate to reflux. Appearance not changed compared with exam. Dilated gallbladder increased compared to holograms history of cholecystitis. There are few calcified gallstones. Pancreatic calcifications appear unchanged and consistent with chronic pancreatitis. Sigmoid diverticulosis hypertrophic changes in the urin sumanth bladder similar to old exam. Nodular density at the base of the bladder could be enlarged prostate or bladder mass. Unchanged. Enlarged prostate. There is a 12 mm stellate nodule in the subpleural lateral right lower lobe that appears to be new compared to old exam. Follow-up recommended. X-ray of the shoulder no acute fracture or dislocation. Moderate narrowing and mild to moderate spurring at the acromioclavicular joint is more prominent from prior. Hip x-ray showed mild to moderate degenerative joint disease. Laboratory data showed sodium 135 potassium 4.3 chloride 102 bicarb is 21 BUN 20 and creatinine 1.47 blood sugar is 267 Urinalysis showed large blood nitrate negative and large leukocyte esterase with elevated RBCs and WBCs. WBC 11.5 hemoglobin 14.3 and platelets 277. Coronavirus PCR not detected. 05/13/2021 Patient is currently lying in the bed. Awake alert and still complaining of left lower abdominal pain and hip pain. X-ray of the hip showed mild degenerative changes without acute fracture or dislocation. Overlying soft tissue appears unremarkable. Vascular calcifications noted. Otherwise no acute process identified. Patient admitted on pain management. Urology has seen the patient and recommend outpatient follow-up for cystoscopy. Resume Eliquis at this time. PT OT consult and continue with pain management. Patient has been afebrile. No headache or dizziness or lightheadedness. No dysuria or hematuria. Urine culture is pending. No chest pain or shortness of breath. No cough or sputum production. Patient is a 70-year-old male with a known history of hypertension, hyperlipidemia, diabetes type 2 insulin-dependent, history of PA status post cardiac catheterization, currently everyday smoker and BPH presented to ER with complaints of left hip pain and also left shoulder pain. Pain gets worse with movement. Patient denies any recent falls. Patient initially presented to ER and had CT abdominal pelvis which showed moderate bilateral hydronephrosis and hydroureter. This could relate to reflux. Appearance not changed compared with exam. Dilated gallbladder increased compared to holograms history of cholecystitis. There are few calcified gallstones. Pancreatic calcifications appear unchanged and consistent with chronic pancreatitis. Sigmoid diverticulosis hypertrophic changes in the urinary bladder similar to old exam. Nodular density at the base of the bladder could be enlarged prostate or bladder mass. Unchanged. Enlarged prostate. There is a 12 mm stellate nodule in the subpleural lateral right lower lobe that appears to be new compared to old exam. Follow-up recommended. X-ray of the shoulder no acute fracture or dislocation. Moderate narrowing and mild to moderate spurring at the acromioclavicular joint is more prominent from prior. Hip x-ray showed mild to moderate degenerative joint disease. Laboratory data showed sodium 135 potassium 4.3 chloride 102 bicarb is 21 BUN 20 and creatinine 1.47 blood sugar is 267 Urinalysis showed large blood nitrate negative and large leukocyte esterase with elevated RBCs and WBCs. WBC 11.5 hemoglobin 14.3 and platelets 277. Coronavirus PCR not detected. 05/13/2021 Patient is currently lying in the bed. Awake alert and still complaining of left lower abdominal pain and hip pain. X-ray of the hip showed mild degenerative changes without acute fracture or dislocation. Overlying soft tissue appears unremarkable. Vascular calcifications noted. Otherwise no acute process identified. Patient admitted on pain management. Urology has seen the patient and recommend outpatient follow-up for cystoscopy. Resume Eliquis at this time. PT OT consult and continue with pain management. Subjective: resuming the care from above 05/14/2021 This is a pleasant 70 years old male who presents on 05/12 for limb pain and inability to walk. Patient complains from weakness in all 4 extremities but more pronounced in the left leg as he states he barely can lift it off the bed. Also he has decreased sensation when examined his left leg. However he complains also to some degree of weakness from all 4 extremities motor he could not move his both arms above his head however passively I could move them up and patient had good tone in his muscles and he could hold them up above his head but then he will drop down once released Patient denies any abdominal pain today and he states that his hematuria has been cleared today back to yellow urine. Patient also feels generally weak and he might need to go to rehab. Patient hematuria problem is not in the room and he has his urologist seen prior to hospitalization and he is supposed to get stress test with natural foods clerk this, the Friday as part of preop evaluation. Also patient states that he was on baby aspirin at home but he ran out of it about one week prior to hospitalization. Also he is on Eliquis Patient told me that he has A. fib and that's why he takes Eliquis at home and that has been taking Eliquis and aspirated one week ago Subjective: Resuming the care of the patient again starting to 05/18/2021, after Dr. Jefferson. Patient currently in the ICU intubated and sedated. 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 With pulmonary/critical care team following him closely and help with vent management, today his FiO2 increased 50% up to 8% after pO2 was low 76. Rest of ABG was normal. He remains on PEEP of 8. Also patient is receiving IVIG. Today's the third dose. His lumbar puncture was consistent with his Gullian Juan syndrome with elevated opening up pressure at 30 cm of water . Also RBCs high 118, decreased protein 148, glucose is 104. Nucleated cells/WBC 1 only. Also patient developing low-grade fever and chest x-ray showing marked lower lobe infiltrate and his antibiotics was adjustment today ceftriaxone and to Zosyn. Patient remains critically ill. 05/19/2021 Patient re also he is developing hypotension requiring Levophed however he needs this dose today at 0.06 g per KG per minute. guerita in the ICU in critical condition intubated and sedated with pulmonary/critical care team are following him closely. Patient is developing respiratory failure secondary to his Gullina- Berri syndrome. And the neurology on the case and he is receiving IVIG He is a known case of A. fib on metoprolol and Eliquis, which was changed to heparin drip because he needed lumbar puncture. Metoprolol was held once he needed Levophed , so today he developed A. fib and RVR which is currently controlled with amiodarone 400 mg twice a day with natural foods clerk consulted and recommended echocardiogram. Also patient is on Zosyn for right basal versus bilateral basal pneumonia, also shown on today's chest x-ray. Remains intubated with FiO2 lower today to 55%, remains on PEEP of 8 like yesterday. He has no fever today. Leukocytosis slightly up 12.9, creatinine is stable at 1.4. 05/20/2021 Patient presents with weakness in all extremities motor on the left lower leg and decreased sensation, moved to the ICU on ) monitoring got deteriorated overnight and he had to be intubated because of worsening respiratory status. Neurology was already on the case and were following him closely. patient currently kept monitored in the ICU with pulmonary/critical care team helping with vent management. Also he is receiving IVIG under the kindness of neurology team, distal intubated and sedated which limits his examination. His leukocytosis improved to 8.6 today. Creatinine is stable at 1.4. He had no fever since yesterday. PEEP remains at 8, FiO2 remains at 50%, he is tachypneic. Sputum culture chronic gram-negative bacilli remains on Zosyn empirically pending final results of the culture. Is also an heparin drip just to liquids per natural foods clerk. Also IVIG. Also Pepcid. Also his A. fib controlled with amiodarone 400 mg on the top of home dose of metoprolol 50 mg. 05/21/2021 Patient is currently in the MICU. 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 Patient received immunoglobin therapy. Remains intubated. Assist control with tidal volume of 430 FiO2 50% and PEEP of 8. Patient had bronchoscopy with bronchial cultures showed ESBL Klebsiella. Patient is being continued meropenem. Sedation is on hold today morning. Laboratory showed WBC 7.3 hemoglobin 11.3 and platelets 184 sodium 141 potassium 3.3 chloride 110 BUN 34 and creatinine 1.4 albumin 2.3 Chest x-ray showed continued diffuse interstitial changes and focal patchy bibasilar airspace disease infiltrates. Possible trace left effusion also persists. 05/22/2020 Patient remains intubated today morning. Was able to tolerate CPAP for a short period of time yesterday. Currently sedated and on assist control with tidal volume 430, FiO2 50% and PEEP of 8. Patient is being continued antibiotics in the form of meropenem due to ESBL Klebsiella. Chest x-ray showed bilateral lower lung acute infiltrate and atelectasis redemonstrated. No significant change from 1 day earlier. Laboratory data showed WBC 8.9 hemoglobin 11.8, platelets 197 sodium 142 potassium 4.0 chloride 110 bicarb is 24 BUN 34 and creatinine 1.27 magnesium 1.7 and albumin 2.4 and calcium 8.4. Current medications reviewed. Objective - Vital Signs Vital signs: Vital Signs Temp 98.4 F 05/22/21 20:00 Pulse 102 H 05/22/21 20:00 Resp 35 H 05/22/21 20:00 BP 110/72 05/22/21 02:00 Pulse Ox 91 L 05/22/21 20:00 Intake & Output 05/22/21 05/22/21 05/23/21 06:59 18:59 06:59 Intake Total 1143.113 930.678 64 Output Total 1550 770 250 Balance -406.887 160.678 -186 Weight 89.9 kg Intake: IV 325 275 25 Sodium Chloride 0.9% 1, 325 275 25 000 ml @ 25 mls/hr IV . Q24H [facility] Rx#:[id number] Intake, IV Titration 251.113 136.678 Amount propofoL 1,000 mg In 251.113 136.678 Empty Bag 1 bag @ Titrate IV .Q0M [facility] Rx#: [id number] Tube Feeding 507 429 39 Other 60 90 Output: Urine 1550 770 250 Other: Voiding Method Indwelling Catheter Indwelling Catheter ABP, PAP, CO, CI - Last Documented Arterial Blood Pressure 121/66 - Exam - Exam -GENERAL: The patient is intubated and sedated HEENT: Pupils are round and equally reacting to light. EOMI. No scleral icterus. No conjunctival pallor. Normocephalic, atraumatic. No pharyngeal erythema. No thyromegaly. CARDIOVASCULAR: S1 and S2 present. No murmurs, rubs, or gallops. PULMONARY: Chest is clear to auscultation, no wheezing or crackles. ABDOMEN: Soft, nontender, nondistended, normoactive bowel sounds. No palpable organomegaly. MUSCULOSKELETAL: No joint swelling or deformity. EXTREMITIES: No cyanosis, clubbing, or pedal edema. -NEUROLOGICAL: Examination is limited by patient intubation. Pupils are equal and reactive to light. No facial asymmetry. Absent reflexes SKIN: No rashes. no petechiae. - Labs CBC & Chem 7: 05/23/21 04:15 05/23/21 04:15 Labs: Abnormal Lab Results - Last 24 Hours (Table) 05/22/21 05/22/21 05/22/21 Range/Units 00:19 03:55 03:55 RBC 3.86 L (4.30-5.90) m/uL Hgb 11.8 L (13.0-17.5) gm/dL Hct 36.0 L (39.0-53.0) % Lymphocytes # 0.9 L (1.0-4.8) k/uL ABG pO2 (83-108) mmHg ABG HCO3 (21-25) mmol/L ABG Total CO2 (19-24) mmol/L ABG O2 Saturation (94-97) % Chloride 110 H (98-107) mmol/L BUN 34 H (9-20) mg/dL Creatinine 1.27 H (0.66-1.25) mg/dL Glucose 177 H (74-99) mg/dL POC Glucose (mg/dL) 155 H (75-99) mg/dL AST 80 H (17-59) U/L ALT 55 H (4-49) U/L Alkaline Phosphatase 133 H (38-126) U/L Albumin 2.4 L (3.5-5.0) g/dL 05/22/21 05/22/21 05/22/21 Range/Units 05:35 05:51 11:16 RBC (4.30-5.90) m/uL Hgb (13.0-17.5) gm/dL Hct (39.0-53.0) % Lymphocytes # (1.0-4.8) k/uL ABG pO2 66 L (83-108) mmHg ABG HCO3 28 H (21-25) mmol/L ABG Total CO2 30 H (19-24) mmol/L ABG O2 Saturation 92.9 L (94-97) % Chloride (98-107) mmol/L BUN (9-20) mg/dL Creatinine (0.66-1.25) mg/dL Glucose (74-99) mg/dL POC Glucose (mg/dL) 160 H 237 H (75-99) mg/dL AST (17-59) U/L ALT (4-49) U/L Alkaline Phosphatase (38-126) U/L Albumin (3.5-5.0) g/dL 05/22/21 Range/Units 17:41 RBC (4.30-5.90) m/uL Hgb (13.0-17.5) gm/dL Hct (39.0-53.0) % Lymphocytes # (1.0-4.8) k/uL ABG pO2 (83-108) mmHg ABG HCO3 (21-25) mmol/L ABG Total CO2 (19-24) mmol/L ABG O2 Saturation (94-97) % Chloride (98-107) mmol/L BUN (9-20) mg/dL Creatinine (0.66-1.25) mg/dL Glucose (74-99) mg/dL POC Glucose (mg/dL) 215 H (75-99) mg/dL AST (17-59) U/L ALT (4-49) U/L Alkaline Phosphatase (38-126) U/L Albumin (3.5-5.0) g/dL Assessment and Plan Assessment: 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 Bladder mass versus enlarged prostate. Needs cystoscopy as an outpatient Chronic A. fib and RVR Bilateral moderate hydronephrosis Hematuria resolved now. Acute urinary tract infection. on antibiotic Hyperglycemia with uncontrolled diabetes type 2 insulin-dependent Hypomagnesemia Hypovolemic hyponatremia Acute kidney injury likely prerenal Chronic kidney disease stage III Paroxysmal atrial fibrillation on anticoagulation with Eliquis Hypertension Hyperlipidemia History of PA status post cardiac catheterization. Plan: This is a pleasant 70 years old male who presents with hematuria and generalized weakness and generalized pain. Left leg weakness and decreased sensation. Continue mechanical ventilation with the help of the pulmonary/critical care team will follow him closely Continue with IVIG as per neurology team will follow him closely as well Continue heparin drip and changed to Eliquis due to his history of A. fib. Continue with amiodarone and metoprolol. Cardiology on the case Patient declined meropenem. ID is on board. Urology on the case and patient informed to need cystoscopy and possible TURP as an outpatient and he verbalized understanding and acceptance. The risk of cancer explained Prior to intubation. Follow-up with natural foods clerk Dr. Snow for stress test. Labs and medication were reviewed. Monitor lytes and vitals. DVT and GI prophylaxis. Further recommendations as per clinical course of the patient DVT prophylaxis: On Eliquis GI Prophylaxis: Pepcid PT/OT: deferred Prognosis is guarded Time with Patient: Greater than 30
[2021-05-23 11:17] LABS: Glucose,Whole Blood 236 mg/dL (75-99)
--- NOTE | 2021-05-23 14:20 | P.PN ---
Subjective Progress Note Date: 05/23/21 Patient is seen at bedside and per nurse, they are attempting to wean the patient out of ventilator but is making slow progress. He was on IV Propofol 40mcg/kg/min and was stopped 2 hours prior to examining him. Per nurse he has some movement of hand and feet. Objective - Vital Signs Vital signs: Vital Signs Temp 99.8 F H 05/23/21 12:00 Pulse 101 H 05/23/21 13:00 Resp 29 H 05/23/21 13:00 BP 128/89 05/23/21 13:00 Pulse Ox 91 L 05/23/21 13:00 Intake & Output 05/22/21 05/23/21 05/23/21 18:59 06:59 18:59 Intake Total 930.678 587.314 608 Output Total 770 890 755 Balance 160.678 -302.686 -147 Weight 92.17 kg Intake: IV 275 150 175 Sodium Chloride 0.9% 1, 275 150 175 000 ml @ 25 mls/hr IV . Q24H [facility] Rx#:[id number] Intake, IV Titration 136.678 143.314 100 Amount propofoL 1,000 mg In 136.678 143.314 100 Empty Bag 1 bag @ Titrate IV .Q0M [facility] Rx#: [id number] Tube Feeding 429 234 273 Other 90 60 60 Output: Urine 770 890 755 Other: Voiding Method Indwelling Catheter Indwelling Catheter Indwelling Catheter # Bowel Movements 1 ABP, PAP, CO, CI - Last Documented Arterial Blood Pressure 131/74 - Exam GENERAL: The patient is lying in bed and does not seem in acute distress. LUNG: Intubated and is on ventilator. NEUROLOGICAL: Limited since patient is on IV Propofol 40mcg/kg/min---stopped 2 hours prior to examining him. Higher mental function: Comatose: GCS 8 (E2,VT1, M5). He does not follow commands or attempts to verbalized. Cranial nerves: Patient would open his eyes with suctioning. Pupils are round and equal. No facial weakness. Weak gag and cough to suctioning. Motor: The strength is limited in assessing exam but would move hands minimally bilaterally. Decrease tone throughout. - Labs CBC & Chem 7: 05/23/21 04:15 05/23/21 04:15 Labs: Abnormal Lab Results - Last 24 Hours (Table) 05/22/21 05/23/21 05/23/21 Range/Units 17:41 00:02 04:15 WBC 11.2 H (3.8-10.6) k/uL RBC 3.99 L (4.30-5.90) m/uL Hgb 12.5 L (13.0-17.5) gm/dL Hct 38.1 L (39.0-53.0) % Neutrophils # 9.0 H (1.3-7.7) k/uL ABG pO2 (83-108) mmHg ABG HCO3 (21-25) mmol/L ABG Total CO2 (19-24) mmol/L ABG O2 Saturation (94-97) % Sodium (137-145) mmol/L Chloride (98-107) mmol/L BUN (9-20) mg/dL Glucose (74-99) mg/dL POC Glucose (mg/dL) 215 H 205 H (75-99) mg/dL AST (17-59) U/L ALT (4-49) U/L Alkaline Phosphatase (38-126) U/L Albumin (3.5-5.0) g/dL 05/23/21 05/23/21 05/23/21 Range/Units 04:15 05:36 11:16 WBC (3.8-10.6) k/uL RBC (4.30-5.90) m/uL Hgb (13.0-17.5) gm/dL Hct (39.0-53.0) % Neutrophils # (1.3-7.7) k/uL ABG pO2 66 L (83-108) mmHg ABG HCO3 31 H (21-25) mmol/L ABG Total CO2 32 H (19-24) mmol/L ABG O2 Saturation 92.8 L (94-97) % Sodium 146 H (137-145) mmol/L Chloride 109 H (98-107) mmol/L BUN 37 H (9-20) mg/dL Glucose 218 H (74-99) mg/dL POC Glucose (mg/dL) 236 H (75-99) mg/dL AST 102 H (17-59) U/L ALT 75 H (4-49) U/L Alkaline Phosphatase 139 H (38-126) U/L Albumin 2.5 L (3.5-5.0) g/dL Assessment and Plan Assessment: * Guillain-Bergman syndrome. Patient has presented with rapidly progressive proximal and distal weakness of upper and lower extremities, diffuse are flexia, and sensory loss distally in the hands and in bilateral legs. Patient has developed progressive respiratory difficulty, with respiratory failure and now has been intubated. Completed IVIG for 5 days (last on 05/19/2021). * Ventilator-dependent respiratory failure due to above. * Right lower lobe pneumonia secondary due to ESBL Klesiella. * Acute UTI. * Diabetes, poorly controlled * Chronic renal insufficiency. * Hypertension * Chronic Atrial fibrillation * Hematuria with possible bladder malignancy, currently being evaluated by urology * Tobacco use 1 pack per day for 30 years. Plan: * Patient has completed IVIG infusion #5/5 days of IVIG on 05/19/2021. * Patient on mechanical ventilation for respiratory failure from Magalie Bergman syndrome. * spinal fluid examination revealed CSF proteins 148/60, glucose 104, WBC 1, RBC 118. In addition to GBS (causing albuminocytological dissociation), his poorly controlled DM can causes elevation of protein and glucose. * MRI of brain revealed no acute stroke. Mild to moderate diffuse cerebral atrophy and moderate chronic small vessel ischemic changes. No suspicious enhancement noted. * MRI of the cervical spine with and without contrast was suboptimal study without definitive abnormal cord signal or enhancement in the cervical spine. There is central slightly T2 hyperintense nonenhancing lesion in the upper thoracic spine over 1.8 cm segment favoring a focal syrinx. I personally re viewed MRI of the cervical spine. The lesion mentioned appeared artifactual in nature. Again, this lesion would not explain any symptoms in the upper extremities for sure. * Blood tests including TA negative B12 308, folic acid 6.3, TSH 3.25, hemoglobin A1c 10.6, ESR 28. IgG 1398, IgA is 513/350, IgM 73.9 normal. (No IgA deficiency). Immunofixation electrophoresis negative for monoclonal protein. Aldolase mildly elevated 7.9/7.6. Serum protein electrophoresis also negative for monoclonal gammopathy. Vitamin B6 is low 6, methylmalonic acid 0.16, vitamin B1 83 normal. Lyme titer negative. * Continue folic acid 1 mg daily and vitamin B12 1000 g PO daily. Continue vitamin B6 50 mg daily. * For chronic atrial fibrillation, will defer management to cardiology team. Patient on Eliquis * PT and OT are consulted. * DVT prophylaxis: on eliquis. * Will defer the rest of medical management to ICU and Pulmonary team. * Condition: Is very guarded. The plan is discussed with the patient's nurse. Will follow-up with patient sporadically. Chance Lim M.D. Neuro-Hospitalist Time with Patient: Less than 30
--- NOTE | 2021-05-23 14:49 | P.PN ---
Subjective Progress Note Date: 05/23/21 Principal diagnosis: This is a 70-year-old gentleman who was admitted with progressive weakness and respiratory distress. He is diagnosed to have Guillain-Bergman syndrome and also pneumonia. We are consulted for management of atrial fibrillation. Currently patient is on amiodarone, metoprolol and liquids. His rate is fairly controlled. He is making slow progress with his respiratory status. From Card[facility] standpoint we'll continue current medical therapy. 05/22/2021: Patient still is intubated and on respiratory support. Remained in atrial fibrillation with controlled ventricular response. Patient remains on amiodarone and metoprolol. Continue current medical therapy. Continue rest of the management 05/23/2021: This patient is admitted with hypoxic respiratory failure secondary to Guillain-Bergman syndrome. Patient has been on mechanical ventilator since May 17. Patient also had right lower lobe pneumonia. He also has chronic atrial fibrillation and hematuria. Patient heart rate is controlled with current medical therapy. It appears that patient is not ready for extubation and weaning from the respirator. From Cardec standpoint we'll continue current medical therapy. Prognosis is guarded Objective - Vital Signs Vital signs: Vital Signs Temp 99.8 F H 05/23/21 12:00 Pulse 122 H 05/23/21 14:00 Resp 29 H 05/23/21 14:00 BP 128/89 05/23/21 14:00 Pulse Ox 92 L 05/23/21 14:00 Intake & Output 05/22/21 05/23/21 05/23/21 18:59 06:59 18:59 Intake Total 930.678 587.314 672 Output Total 770 890 805 Balance 160.678 -302.686 -133 Weight 92.17 kg Intake: IV 275 150 200 Sodium Chloride 0.9% 1, 275 150 200 000 ml @ 25 mls/hr IV . Q24H [facility] Rx#:[id number] Intake, IV Titration 136.678 143.314 100 Amount propofoL 1,000 mg In 136.678 143.314 100 Empty Bag 1 bag @ Titrate IV .Q0M [facility] Rx#: [id number] Tube Feeding 429 234 312 Other 90 60 60 Output: Urine 770 890 805 Other: Voiding Method Indwelling Catheter Indwelling Catheter Indwelling Catheter # Bowel Movements 1 ABP, PAP, CO, CI - Last Documented Arterial Blood Pressure 133/73 - Exam GENERAL EXAM: Patient is intubated on respirator HEENT: Normocephalic. NECK: No masses, no nuchal rigidity. CHEST: No chest wall deformity. LUNGS: Diminished air entry HEART: S1 and S2 normal ABDOMEN: No hepatosplenomegaly, normal bowel sounds, no guarding or rigidity. SKIN: No rashes CENTRAL NERVOUS SYSTEM: Intubated and sedated EXTREMITIES: No cyanosis, clubbing or edema. - Labs CBC & Chem 7: 05/23/21 04:15 05/23/21 04:15 Labs: Abnormal Lab Results - Last 24 Hours (Table) 05/22/21 05/23/21 05/23/21 Range/Units 17:41 00:02 04:15 WBC 11.2 H (3.8-10.6) k/uL RBC 3.99 L (4.30-5.90) m/uL Hgb 12.5 L (13.0-17.5) gm/dL Hct 38.1 L (39.0-53.0) % Neutrophils # 9.0 H (1.3-7.7) k/uL ABG pO2 (83-108) mmHg ABG HCO3 (21-25) mmol/L ABG Total CO2 (19-24) mmol/L ABG O2 Saturation (94-97) % Sodium (137-145) mmol/L Chloride (98-107) mmol/L BUN (9-20) mg/dL Glucose (74-99) mg/dL POC Glucose (mg/dL) 215 H 205 H (75-99) mg/dL AST (17-59) U/L ALT (4-49) U/L Alkaline Phosphatase (38-126) U/L Albumin (3.5-5.0) g/dL 05/23/21 05/23/21 05/23/21 Range/Units 04:15 05:36 11:16 WBC (3.8-10.6) k/uL RBC (4.30-5.90) m/uL Hgb (13.0-17.5) gm/dL Hct (39.0-53.0) % Neutrophils # (1.3-7.7) k/uL ABG pO2 66 L (83-108) mmHg ABG HCO3 31 H (21-25) mmol/L ABG Total CO2 32 H (19-24) mmol/L ABG O2 Saturation 92.8 L (94-97) % Sodium 146 H (137-145) mmol/L Chloride 109 H (98-107) mmol/L BUN 37 H (9-20) mg/dL Glucose 218 H (74-99) mg/dL POC Glucose (mg/dL) 236 H (75-99) mg/dL AST 102 H (17-59) U/L ALT 75 H (4-49) U/L Alkaline Phosphatase 139 H (38-126) U/L Albumin 2.5 L (3.5-5.0) g/dL Assessment and Plan (1) Guillain Bergman syndrome Current Visit: Yes Status: Acute Code(s): G61.0 - GUILLAIN-BARRE SYNDROME SNOMED Code(s): 28413433 (2) Chronic atrial fibrillation Current Visit: Yes Status: Acute Code(s): I48.20 - CHRONIC ATRIAL FIBRILLA TION, UNSPECIFIED SNOMED Code(s): 192437419 (3) Pneumonia Current Visit: Yes Status: Acute Code(s): J18.9 - PNEUMONIA, UNSPECIFIED ORGANISM SNOMED Code(s): 756126035 Plan: Continue current cardiac management. Rest of the management as for intense neurologist
[2021-05-23] MEDS: CYANOCOBALAMIN 500 MCG TAB PO SCH (16:29)
[2021-05-23 18:14] LABS: Glucose,Whole Blood 206 mg/dL (75-99)
[2021-05-23] MEDS: ACETAMINOPHEN TAB 325 MG TAB PO PRN (19:33)
[2021-05-23] MEDS: ATORVASTATIN 80 MG TAB PO SCH (19:33)
[2021-05-23] MEDS: SODIUM CHLORIDE 0.9% 1,000 ML IV SCH (19:36)
[2021-05-23] MEDS: INSULIN DETEMIR (LEVEMIR) 100 UNIT/ML SYR SQ SCH (19:52)
--- NOTE | 2021-05-23 22:31 | P.PN ---
Subjective From records Patient is a 70-year-old male with a known history of hypertension, hyperlipidemia, diabetes type 2 insulin-dependent, history of WI status post cardiac catheterization, currently everyday smoker and BPH presented to ER with complaints of left hip pain and also left shoulder pain. Pain gets worse with movement. Patient denies any recent falls. Patient initially presented to ER and had CT abdominal pelvis which showed moderate bilateral hydronephrosis and hydroureter. This could relate to reflux. Appearance not changed compared with exam. Dilated gallbladder increased compared to holograms history of cholecystitis. There are few calcified gallstones. Pancreatic calcifications appear unchanged and consistent with chronic pancreatitis. Sigmoid diverticulosis hypertrophic changes in the urinary bladder similar to old exam. Nodular density at the base of the bladder could be enlarged prostate or bladder mass. Unchanged. Enlarged prostate. There is a 12 mm stellate nodule in the subpleural lateral right lower lobe that appears to be new compared to old exam. Follow-up recommended. X-ray of the shoulder no acute fracture or dislocation. Moderate narrowing and mild to moderate spurring at the acromioclavicular joint is more prominent from prior. Hip x-ray showed mild to moderate degenerative joint disease. Laboratory data showed sodium 135 potassium 4.3 chloride 102 bicarb is 21 BUN 20 and creatinine 1.47 blood sugar is 267 Urinalysis showed large blood nitrate negative and large leukocyte esterase with elevated RBCs and WBCs. WBC 11.5 hemoglobin 14.3 and platelets 277. Coronavirus PCR not detected. 05/13/2021 Patient is currently lying in the bed. Awake alert and still complaining of left lower abdominal pain and hip pain. X-ray of the hip showed mild degenerative changes without acute fracture or dislocation. Overlying soft tissue appears unremarkable. Vascular calcifications noted. Otherwise no acute process identified. Patient admitted on pain management. Urology has seen the patient and recommend outpatient follow-up for cystoscopy. Resume Eliquis at this time. PT OT consult and continue with pain management. Subjective: resuming the care from above 05/14/2021 This is a pleasant 70 years old male who presents on 05/12 for limb pain and inability to walk. Patient complains from weakness in all 4 extremities but more pronounced in the left leg as he states he barely can lift it off the bed. Also he has decreased sensation when examined his left leg. However he complains also to some degree of weakness from all 4 extremities motor he could not move his both arms above his head however passively I could move them up and patient had good tone in his muscles and he could hold them up above his head but then he will drop down once released Patient denies any abdominal pain today and he states that his hematuria has been cleared today back to yellow urine. Patient also feels generally weak and he might need to go to rehab. Patient hematuria problem is not in the room and he has his urologist seen prior to hospitalization and he is supposed to get stress test with table operator this, the Friday as part of preop evaluation. Also patient states that he was on baby aspirin at home but he ran out of it about one week prior to hospitalization. Also he is on Eliquis Patient told me that he has A. fib and that's why he takes Eliquis at home and that has been taking Eliquis and aspirated one week ago Subjective: Resuming the care of the patient again starting to 05/18/2021, after Dr. Jefferson. Patient currently in the ICU intubated and sedated. 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 With pulmonary/critical care team following him closely and help with vent management, today his FiO2 increased 50% up to 8% after pO2 was low 76. Rest of ABG was normal. He remains on PEEP of 8. Also patient is receiving IVIG. Today's the third dose. His lumbar puncture was consistent with his Gullian Juan syndrome with elevated opening up pressure at 30 cm of water . Also RBCs high 118, decreased protein 148, glucose is 104. Nucleated cells/WBC 1 only. Also patient developing low-grade fever and chest x-ray showing marked lower lobe infiltrate and his antibiotics was adjustment today ceftriaxone and to Zosyn. Patient remains critically ill. 05/19/2021 Patient re also he is developing hypotension requiring Levophed however he needs this dose today at 0.06 g per KG per minute. guerita in the ICU in critical condition intubated and sedated with pulmonary/critical care team are following him closely. Patient is developing respiratory failure secondary to his Gullina- Berri syndrome. And the neurology on the case and he is receiving IVIG He is a known case of A. fib on metoprolol and Eliquis, which was changed to he rabia drip because he needed lumbar puncture. Metoprolol was held once he needed Levophed , so today he developed A. fib and RVR which is currently controlled with amiodarone 400 mg twice a day with table operator consulted and recommended echocardiogram. Also patient is on Zosyn for right basal versus bilateral basal pneumonia, also shown on today's chest x-ray. Remains intubated with FiO2 lower today to 55%, remains on PEEP of 8 like yesterday. He has no fever today. Leukocytosis slightly up 12.9, creatinine is stable at 1.4. 05/20/2021 Patient presents with weakness in all extremities motor on the left lower leg and decreased sensation, moved to the ICU on ) monitoring got deteriorated overnight and he had to be intubated because of worsening respiratory status. Neurology was already on the case and were following him closely. patient currently kept monitored in the ICU with pulmonary/critical care team helping with vent management. Also he is receiving IVIG under the kindness of neurology team, distal intubated and sedated which limits his examination. His leukocytosis improved to 8.6 today. Creatinine is stable at 1.4. He had no fever since yesterday. PEEP remains at 8, FiO2 remains at 50%, he is tachypneic. Sputum culture chronic gram-negative bacilli remains on Zosyn empirically pending final results of the culture. Is also an heparin drip just to liquids per table operator. Also IVIG. Also Pepcid. Also his A. fib controlled with amiodarone 400 mg on the top of home dose of metoprolol 50 mg. Subjective: Patient cannot provide information Resuming the care of the patient on 05/23/2021 Patient underwent sedation trial today while he is on propofol with no success since yesterday. patient remains intubated and sedated secondary to his hypoxia and respiratory failure, with pulmonary/critical care team following him closely and help with vent management. He is status post 5 days of IVIG her pulmonary team following him closely as well . He's also on meropenem for ESBL Klebsiella obtained from his bronchoscopy lavage done on 05/18. He still tachypneic and recurrent low-grade fever over 100.4. He has mild leukocytosis of 11.2. Liver enzymes mildly elevated and chest x-ray shows stable perihilar and basal infiltrates. Objective - Vital Signs Vital signs: Vital Signs Temp 100.1 F H 05/23/21 08:00 Pulse 93 05/23/21 10:00 Resp 37 H 05/23/21 10:00 BP 128/89 05/23/21 10:00 Pulse Ox 91 L 05/23/21 10:00 Intake & Output 05/22/21 05/23/21 05/23/21 18:59 06:59 18:59 Intake Total 930.678 587.314 286 Output Total 770 890 495 Balance 160.678 -302.686 -209 Weight 92.17 kg Intake: IV 275 150 100 Sodium Chloride 0.9% 1, 275 150 100 000 ml @ 25 mls/hr IV . Q24H [facility] Rx#:[id number] Intake, IV Titration 136.678 143.314 Amount propofoL 1,000 mg In 136.678 143.314 Empty Bag 1 bag @ Titrate IV .Q0M [facility] Rx#: [id number] Tube Feeding 429 234 156 Other 90 60 30 Output: Urine 770 890 495 Other: Voiding Method Indwelling Catheter Indwelling Catheter ABP, PAP, CO, CI - Last Documented Arterial Blood Pressure 108/64 - Exam -GENERAL: The patient is intubated and sedated HEENT: Pupils are round and equally reacting to light. EOMI. No scleral icterus. No conjunctival pallor. Normocephalic, atraumatic. No pharyngeal erythema. No thyromegaly. CARDIOVASCULAR: S1 and S2 present. No murmurs, rubs, or gallops. PULMONARY: Chest is clear to auscultation, no wheezing or crackles. ABDOMEN: Soft, nontender, nondistended, normoactive bowel sounds. No palpable organomegaly. MUSCULOSKELETAL: No joint swelling or deformity. EXTREMITIES: No cyanosis, clubbing, or pedal edema. -NEUROLOGICAL: Examination is limited by patient intubation. Pupils are equal and reactive to light. No facial asymmetry. Absent reflexes SKIN: No rashes. no petechiae. - Labs CBC & Chem 7: 05/23/21 04:15 05/23/21 04:15 Labs: Abnormal Lab Results - Last 24 Hours (Table) 05/22/21 05/22/21 05/23/21 Range/Units 11:16 17:41 00:02 WBC (3.8-10.6) k/uL RBC (4.30-5.90) m/uL Hgb (13.0-17.5) gm/dL Hct (39.0-53.0) % Neutrophils # (1.3-7.7) k/uL ABG pO2 (83-108) mmHg ABG HCO3 (21-25) mmol/L ABG Total CO2 (19-24) mmol/L ABG O2 Saturation (94-97) % Sodium (137-145) mmol/L Chloride (98-107) mmol/L BUN (9-20) mg/dL Glucose (74-99) mg/dL POC Glucose (mg/dL) 237 H 215 H 205 H (75-99) mg/dL AST (17-59) U/L ALT (4-49) U/L Alkaline Phosphatase (38-126) U/L Albumin (3.5-5.0) g/dL 05/23/21 05/23/21 05/23/21 Range/Units 04:15 04:15 05:36 WBC 11.2 H (3.8-10.6) k/uL RBC 3.99 L (4.30-5.90) m/uL Hgb 12.5 L (13.0-17.5) gm/dL Hct 38.1 L (39.0-53.0) % Neutrophils # 9.0 H (1.3-7.7) k/uL ABG pO2 66 L (83-108) mmHg ABG HCO3 31 H (21-25) mmol/L ABG Total CO2 32 H (19-24) mmol/L ABG O2 Saturation 92.8 L (94-97) % Sodium 146 H (137-145) mmol/L Chloride 109 H (98-107) mmol/L BUN 37 H (9-20) mg/dL Glucose 218 H (74-99) mg/dL POC Glucose (mg/dL) (75-99) mg/dL AST 102 H (17-59) U/L ALT 75 H (4-49) U/L Alkaline Phosphatase 139 H (38-126) U/L Albumin 2.5 L (3.5-5.0) g/dL Assessment and Plan Assessment: 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 Secondary to ESBL K lebsiella Bladder mass versus enlarged prostate. Needs cystoscopy as an outpatient Chronic A. fib and RVR Bilateral moderate hydronephrosis Hematuria resolved now. Acute urinary tract infection. on antibiotic Hyperglycemia with uncontrolled diabetes type 2 insulin-dependent Hypomagnesemia Hypovolemic hyponatremia Acute kidney injury likely prerenal Chronic kidney disease stage III Paroxysmal atrial fibrillation on anticoagulation with Eliquis Hypertension Hyperlipidemia History of WI status post cardiac catheterization. Plan: This is a pleasant 70 years old male who presents with hematuria and generalized weakness and generalized pain. Left leg weakness and decreased sensation. Continue mechanical ventilation with the help of the pulmonary/critical care team will follow him closely. Continue with sedation trial for pulmonary team status post 5 days of IVIG as per neurology team will follow him closely as well Continue Eliquis due to his history of A. fib. Continue with amiodarone and metoprolol. Cardiology on the case Continue with meropenem Urology evaluated the patient and recommended cystoscopy and possible TURP as an outpatient and he verbalized understanding and acceptance. The risk of cancer explained Prior to intubation Labs and medication were reviewed.. Continue same treatment. Continue with symptomatic treatment. Resume home medication. Monitor lytes and vitals. DVT and GI prophylaxis. Further recommendations as per clinical course of the patient DVT prophylaxis: On Eliquis GI Prophylaxis: Pepcid PT/OT: deferred Prognosis is guarded
[2021-05-23 23:45] LABS: Glucose,Whole Blood 237 mg/dL (75-99)
[2021-05-24] MEDS: IPRATROPIUM-ALBUTEROL 3 ML NEB INHALATION SCH ×7 (01:54→23:04)
[2021-05-24 05:00] LABS: Basophils % (A) 0 %; Eosinophils # (A) 0.1 k/uL (0-0.7); Eosinophils % (A) 1 %; HCT 39.7 % (39.0-53.0); HGB 12.7 gm/dL (13.0-17.5); Lymphocytes # (A) 1.3 k/uL (1.0-4.8); Lymphocytes % (A) 12 %; MCHC 32.1 g/dL (31.0-37.0); MCV 96.6 fL (80.0-100.0); Mean Platelet Volume 8.8; Monocytes # (A) 0.6 k/uL (0-1.0); Monocytes % (A) 6 %; Neutrophils # (A) 8.1 k/uL (1.3-7.7); Neutrophils % (A) 78 %; Platelet Count 273 k/uL (150-450); RBC 4.11 m/uL (4.30-5.90); RDW 14.5 % (11.5-15.5); WBC 10.3 k/uL (3.8-10.6)
[2021-05-24 05:03] LABS: ABG Base Excess 6.6 mmol/L; ABG HCO3 31 mmol/L (21-25); ABG Oxygen Saturation 94.6 % (94-97); ABG PCO2 46 mmHg (35-45); ABG PH 7.43 (7.35-7.45); ABG PO2 75 mmHg (83-108); ABG TCO2 32 mmol/L (19-24); Allen Test Performed? Yes
[2021-05-24 05:13] LABS: Albumin 2.5 g/dL (3.5-5.0); Calcium 8.7 mg/dL (8.4-10.2); Magnesium 1.9 mg/dL (1.6-2.3); Potassium 4.4 mmol/L (3.5-5.1); Total Bilirubin 0.5 mg/dL (0.2-1.3); Total Protein 7.1 g/dL (6.3-8.2)
[2021-05-24] MEDS: INSULIN ASPART (NovoLOG) 100 UNIT/ML VIAL SQ SCH ×5 (05:17→19:33)
[2021-05-24] MEDS: MAGNESIUM SULFATE-D5W PMX 1 GM in DEXTROSE/WATER 1 100ML.BAG IVPB SCH ×2 (05:59→06:51)
--- NOTE | 2021-05-24 07:35 | XR ---
EXAMINATION TYPE: XR chest 1V portable DATE OF EXAM: 05/24/2021 Comparison: 05/23/2021 Clinical History: 70-year-old male vent Findings: ET tube tip satisfactory. NG tube courses below the diaphragm. Left subclavian CVC tip lower SVC. Hea rt normal size. Mild interstitial density is similar. Focal patchy and confluent bibasilar airspace o pacities are also similar. Impression: Similar patchy and confluent bibasilar airspace disease.
[2021-05-24] MEDS: PANTOPRAZOLE 40 MG/10 ML VIAL IVP SCH (08:53)
[2021-05-24] MEDS: METOPROLOL TARTRATE 50 MG TAB PO SCH ×2 (08:54→19:33)
[2021-05-24] MEDS: CHLORHEXIDINE GLUCONATE 15 ML CUP MUCOUS MEM SCH ×2 (08:54→19:33)
[2021-05-24] MEDS: APIXABAN 5 MG TAB PO SCH ×2 (08:54→19:33)
[2021-05-24] MEDS: PYRIDOXINE 50 MG TAB PO SCH (08:54)
[2021-05-24] MEDS: CYANOCOBALAMIN 500 MCG TAB PO SCH (08:54)
[2021-05-24] MEDS: SERTRALINE 50 MG TAB PO SCH (08:54)
[2021-05-24] MEDS: FOLIC ACID 1 MG TAB PO SCH (08:54)
[2021-05-24] MEDS: AMIODARONE 200 MG TAB PO SCH ×2 (08:54→19:33)
[2021-05-24] MEDS: NICOTINE 14MG/24HR PATCH TRANSDERM SCH (08:54)
[2021-05-24 09:04] LABS: Glucose,Whole Blood 191 mg/dL (75-99)
[2021-05-24] MEDS: MEROPENEM 2 GM in SODIUM CHLORIDE 0.9% 100 ML IVPB SCH ×2 (09:36→16:29)
--- NOTE | 2021-05-24 09:37 | P.PN ---
Subjective Progress Note Date: 05/24/21 Principal diagnosis: Respiratory failure. Reevaluated today on 05/18/2021, patient remains in the ICU, intubated and mechanically ventilated. However patient was noted to develop worsening chest x-ray and the right lower lobe collapse/atelectasis, and intermittently we have been increasing his FiO2 with worsening chest x-ray, hence I recommended bronchoscopy today and he underwent a bronchoscopy with bronchoalveolar lavage of the right middle lobe, right lower lobe, and a mucous plugs worse suctioned out of the airway especially on the right side. Procedure was well-tolerated, and the plan is to go down on his FiO2. He was initially on 50%, we had to increase his FiO2 up to 80%. He is now back on assist control mode of mechanical ventilation rate 30 tidal volume 430 FiO2 I 50% and PEEP of 8. ABG showed a pO2 of 76 pCO2 of 38 pH of 7.35. Peak airway pressure is 26 blood pressure is 23. Patient remains on multiple drips including norepinephrine, propofol, 45 mcg/kg/m, he is also on norepinephrine at 7 mcg/m, IV fluid at 75 mL per hour in the form of 0.9 normal saline. Patient continues to have persistent hematuria. Chest x-ray as noted above showed mostly right lower lobe collapse. And atelectasis. 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 Patient remains on IVIG. Patient is receiving enteral feeding in the form of vital HPI at 14 mL per hour. Considering the worsening of his pulmonary status today, patient was not felt to be ideal to consider weaning or to assess off sedation. Reevaluated today on 05/19/2021, patient remains in the ICU, intubated and mechanically ventilated. Patient is on assist control rate of 3 to tidal volume is 430 FiO2 of 65% and PEEP of 8. ABG showed a pO2 of 98 pCO2 of 50 pH of 7.26. Hence I increased the rate to 34, I have also cut down the FiO2 to 55%, PEEP at 8. And tidal volumes the same. Patient remains on propofol at 25 mcg/kg/m, he is also on norepinephrine at 0.06 mcg/kg/m. Amiodarone at 0.5, patient had atrial fibrillation with RVR yesterday, he is known to have history of chronic atrial fibrillation. He is also on heparin drip. Patient is on vital HPI at 24 mL per hour. Chest x-ray is showing significant improvement in his right lower lobe atelectasis/possible pneumonia. Remains on antibiotics, cultures from his bronchoscopy and BAL are pending. WBC count is 4.9 hemoglobin is 12.2. PTT is therapeutic at 58. Electrolytes are normal, renal profile is improving with a BUN of 33 creatinine 1.46. Blood sugar is 171. Reevaluated today on 05/20/2021, patient remains in the ICU, intubated and mechanically ventilated. Patient is on assist control rate of 34, tidal volume 430 FiO2 55% and a cardiac down to 50% today, he is on a PEEP of 8. ABG showed a pO2 of 126 pCO2 of 39 pH of 7.37. Patient is sedated, he is on propofol at 45 mcg/kg/m, he is on heparin for his atrial fibrillation he is on vital HPI at 24 mL/h/goal his IV fluid is at 75 mL per hour and I cut it down to KVO mostly because his chest x-ray is showing mild interstitial edema, and airspace disease bilaterally. Patient will be given a dose of Lasix 40 mg IV push. His WBC count is 8.6 hemoglobin is 11.1. Chest x-ray showed bibasilar atelectas is/infiltrates, and slight interstitial edema. Patient was awakened yesterday, and he was appropriate, followed simple instructions according to the nurse. His BAL from the right lower lobe and right middle lobe is showing gram-negative bacilli, and many polymorphonuclear leukocytes. Final identification is pending. Patient is empirically on Zosyn. Renal functioning is steadily improving, creatinine today is 1.20, this was as high as 1.55 only 4 days ago Progress note dated 05/21/2021. This is a 70-year-old male, seen in room 251. The patient was admitted on 05/12/2021, with hematuria and dehydration. The patient came to the intensive care unit on 05/17/2021, for respiratory failure, and was intubated on the same day. Patient was apparently found have Guillain-[place] syndrome. The patient underwent bronchoscopy on 05/18/2021. The bronchoscopy washings revealed ESBL Klebsiella. The patient is currently on meropenem. Zosyn was. The patient remains on the mechanical ventilator, with a volume assist control mode, rate 34, tidal volume 430, FiO2 50%, PEEP of 8. Arterial blood gases show a PaO2 of 62, pCO2 38, pH is 7.44. The patient's currently on saline at 25 mL an hour, propofol at 35 mcg/kg/m, and vital HP at 24 mL an hour, which is goal. White count 7.3, hemoglobin 11.3, hematocrit 34, platelet count 184,000. Sodium 141, potassium 3.3, chlorides 110, CO2 24, anion gap 7, BUN 34, creatinine 1.40. The patient chest x-ray showed diffuse interstitial changes and bibasilar patchy airspace disease. Progress note dated 05/22/2021. 70-year-old male, again seen in room 251. The patient was admitted with a diagnosis of hematuria and dehydration on 05/12/2021. The patient came to the intensive care unit on 05/17/2021. This was because of respiratory failure, and he was intubated on the same day. 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 For that, he received IVIG for 5 days. The patient remains on the mechanical ventilator. He did undergo bronchoscopy on 05/18/2021. The patient was found to have ESBL Klebsiella pneumoniae. The patient is currently on meropenem. Currently, ventilator settings include the volume assist control, rate of 34, t idal volume or 30, FiO2 50%, and PEEP of 8. Blood gases show pO2 of 66, pCO2 43, pH 7.43. The patient is on saline at 25 mL an hour, propofol at 50 mcg/kg/m, and vital high protein at 39 mL an hour, which is goal. White count 8.9, hemoglobin 11.8, hematocrit 36, platelet count 197,000. Sodium 142, potassium 4, chlorides 110, CO2 24, anion gap 8, BUN 34, creatinine 1.27. AST 80, ALT 55. Albumin 2.4. Chest x-ray shows bilateral lower lobe infiltrates and atelectasis. The chest x-ray is essentially unchanged. Progress note dated 05/23/2021. 70-year-old male, again seen in room 251. The patient was initially admitted with a diagnosis of hematuria and dehydration on May 12. He came to the intensive care unit on 05/17/2021. The patient was intubated on the same day for respiratory failure. The patient was discovered to have L-G-B syndrome. The patient received IVIG for 5 days. He remains on the mechanical ventilator. Yesterday, he had a brief daily interruption of sedation but did poorly. He needed to be re-sedated. Currently, he's on volume assist control, rate 34, t idal volume 430, FiO2 50%, and PEEP of 8. Blood gases show pO2 66, pCO2 44, and pH of 7.45. The patient's currently on propofol at 40 mcg/kg/m, saline at 25 mL an hour, and vital high protein at goal, which is 39 mL an hour. The patient was also discovered to have ESBL Klebsiella pneumoniae, and is currently on meropenem. Labs include a white count of 11.2, hemoglobin 12.5, hematocrit 38.1, platelet count 227,000. Sodium 146, potassium 4, chlorides 109, CO2 29, anion gap 8, BUN 37, and creatinine 1.21. AST is 102 with an ALT of 75. Chest x-ray shows bilateral perihilar and basilar infiltrates, and is essentially unchanged from the day prior. Progress note dated 05/24/2021. 70-year-old male, seen in room 251. The patient was initially admitted with a diagnosis of hematuria and dehydration on /. He came to the intensive care unit on 05/17/2021. The patient was intubated on the same day for respiratory failure. The patient was diagnosed by neurology to have L-G-B syndrome, and received IVIG for 5 days. He remains on the ventilator, but is very weak. We have done daily interruption of sedation but breathing trials have been very limited. The patient remains on the ventilator, on the volume assist control mode, rate 24, tidal volume or 30, FiO2 60% with a PEEP of 8. Blood gases show pO2 75, pCO2 46, pH is 7.43. The patient's on saline at 25 mL an hour, and nya l high protein at 39 mL an hour, which is goal. In addition, the patient remains on propofol at 25 mcg/kg/m. We will attempt another weaning trial with pressure support of 10 and CPAP of 5. Lab work includes a white count 10.3, hemoglobin 12.7, hematocrit 39.7, and a normal platelet count. Sodium 146, potassium 4.4, chlorides 109, CO2 28, anion gap 9, BUN 50, creatinine 1.31. Albumin is 2.5. Chest x-ray from today is unchanged. Objective - Vital Signs Vital signs: Vital Signs Temp 99.5 F 05/24/21 08:00 Pulse 122 H 05/24/21 09:00 Resp 34 H 05/24/21 09:00 BP 128/89 05/24/21 09:00 Pulse Ox 92 L 05/24/21 09:00 Intake & Output 05/23/21 05/24/21 05/24/21 18:59 06:59 18:59 Intake Total 1058 1122 135.84 Output Total 1135 1525 325 Balance -77 -403 -189.16 Weight 92.17 kg 89.6 kg Intake: IV 300 325 50 Sodium Chloride 0.9% 1, 300 325 50 000 ml @ 25 mls/hr IV . Q24H [facility] Rx#:[id number] Intake, IV Titration 200 200 7.84 Amount propofoL 1,000 mg In 200 200 7.84 Empty Bag 1 bag @ Titrate IV .Q0M [facility] Rx#: [id number] Tube Feeding 468 507 78 Other 90 90 Output: Urine 1135 1525 325 Other: Voiding Method Indwelling Catheter Indwelling Catheter # Bowel Movements 1 ABP, PAP, CO, CI - Last Documented Arterial Blood Pressure 139/73 - Exam No acute distress, intubated, and mechanically ventilated, sedated, with an orally placed endotracheal tube. HEENT examination is grossly unremarkable. Neck supple. Full range of motion. No adenopathy thyromegaly or neck vein distention. Cardiovascular examination reveals regular rhythm rate. S1-S2 normal. No S3 or S4. No discernible murmur noted. Heart sounds are distant. Heart rate 120 bpm. Lungs reveal bilateral coarse rhonchi. No wheezes. No crackles. Breath sounds equal bilaterally. Saturations are 93 % Abdomen soft bowel sounds are heard. No masses or tenderness. Extremities are intact. No cyanosis or clubbing. Mild edema is noted. Skin is without rash or lesion. Neurologic examination is difficult to assess as the patient's currently sedated with propofol. - Labs CBC & Chem 7: 05/24/21 04:25 05/24/21 04:25 Labs: Abnormal Lab Results - Last 24 Hours (Table) 05/23/21 05/23/21 05/23/21 Range/Units 11:16 18:12 23:43 RBC (4.30-5.90) m/uL Hgb (13.0-17.5) gm/dL Neutrophils # (1.3-7.7) k/uL ABG pCO2 (35-45) mmHg ABG pO2 (83-108) mmHg ABG HCO3 (21-25) mmol/L ABG Total CO2 (19-24) mmol/L Sodium (137-145) mmol/L Chloride (98-107) mmol/L BUN (9-20) mg/dL Creatinine (0.66-1.25) mg/dL Glucose (74-99) mg/dL POC Glucose (mg/dL) 236 H 206 H 237 H (75-99) mg/dL AST (17-59) U/L ALT (4-49) U/L Alkaline Phosphatase (38-126) U/L Albumin (3.5-5.0) g/dL 05/24/21 05/24/21 05/24/21 Range/Units 04:25 04:25 04:54 RBC 4.11 L (4.30-5.90) m/uL Hgb 12.7 L (13.0-17.5) gm/dL Neutrophils # 8.1 H (1.3-7.7) k/uL ABG pCO2 46 H (35-45) mmHg ABG pO2 75 L (83-108) mmHg ABG HCO3 31 H (21-25) mmol/L ABG Total CO2 32 H (19-24) mmol/L Sodium 146 H (137-145) mmol/L Chloride 109 H (98-107) mmol/L BUN 50 H (9-20) mg/dL Creatinine 1.31 H (0.66-1.25) mg/dL Glucose 249 H (74-99) mg/dL POC Glucose (mg/dL) (75-99) mg/dL AST 92 H (17-59) U/L ALT 83 H (4-49) U/L Alkaline Phosphatase 131 H (38-126) U/L Albumin 2.5 L (3.5-5.0) g/dL 05/24/21 Range/Units 09:03 RBC (4.30-5.90) m/uL Hgb (13.0-17.5) gm/dL Neutrophils # (1.3-7.7) k/uL ABG pCO2 (35-45) mmHg ABG pO2 (83-108) mmHg ABG HCO3 (21-25) mmol/L ABG Total CO2 (19-24) mmol/L Sodium (137-145) mmol/L Chloride (98-107) mmol/L BUN (9-20) mg/dL Creatinine (0.66-1.25) mg/dL Glucose (74-99) mg/dL POC Glucose (mg/dL) 191 H (75-99) mg/dL AST (17-59) U/L ALT (4-49) U/L Alkaline Phosphatase (38-126) U/L Albumin (3.5-5.0) g/dL Assessment and Plan Assessment: 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 Right lower lobe pneumonia secondary to ESBL Klebsiella, currently on meropenem. Status post bronchoscopy, 05/18/2021. Hematuria, with possible bladder malignancy, currently being evaluated by urology. History of chronic atrial fibrillation. [id number] history of tobacco use. Benign essential hypertension. Type 2 diabetes mellitus. Chronic renal insufficiency. Plan: Plan dated 05/21/2021. The patient remains on the mechanical ventilator. He is not yet ready to be weaned from mechanical ventilation. The patient continues on IVIG as per neurology. The patient continues on GI and DVT prophylaxis. The bronchial washing showed evidence of ESBL Klebsiella, and the antibiotics were changed from Zosyn to meropenem. We will continue tube feedings. Additional recommendations and suggestions are forthcoming. Prognosis is guarded. We will continue to follow and make recommendations where appropriate. Plan dated 05/22/2021. The patient remains on the mechanical ventilator. We will attempt a daily interruption of sedation, and a spontaneous breathing trial, with a pressure support of 10 and CPAP of 5. The patient did receive 5 days of IVIG. The patient's currently on meropenem for his Klebsiella found in the bronchoscopy wash, on May 18. The patient remains on propofol at 50 mcg/kg/m. He is getting nutrition at goal. Overall prognosis is guarded. We'll continue to follow make recommendations where appropriate. Plan dated 05/23/2021. The patient remains on the ventilator. The patient had a brief daily interruption of sedation yesterday, but required re-sedation. The patient appears not to be ready for significant weaning and extubation. The patient did receive 5 days of IVIG. The patient is currently on meropenem for Klebsiella pneumoniae, ESBL, found on bronchoscopy washings from May 18. The patient remains on propofol at 40 mcg/kg/m. The patient is receiving tube feedings. Additional recommendations and suggestions are forthcoming. Prognosis is guarded. We will continue to follow make recommendations where appropriate. Plan dated 05/24/2021. The patient remains on the ventilator. We do do a daily interruption's of sedation with spontaneous breathing trials, but the patient is profoundly weak, and only last minutes on the pressure support and CPAP. We will continue to try. He is currently on meropenem for ESBL Klebsiella pneumoniae found in the bronchoscopy washings from 05/18. The patient remains on propofol, and is been cut back to 25 mcg/kg/m. The patient is receiving tube feedings. He is at goal. Additional recommendations and suggestions are forthcoming. Prognosis is guarded. Time with Patient: Greater than 30
[2021-05-24 11:45] LABS: Glucose,Whole Blood 154 mg/dL (75-99)
[2021-05-24 16:24] LABS: Glucose,Whole Blood 190 mg/dL (75-99)
--- NOTE | 2021-05-24 17:03 | P.PN ---
Subjective From records Patient is a 70-year-old male with a known history of hypertension, hyperlipidemia, diabetes type 2 insulin-dependent, history of [place] status post cardiac catheterization, currently everyday smoker and BPH presented to ER with complaints of left hip pain and also left shoulder pain. Pain gets worse with movement. Patient denies any recent falls. Patient initially presented to ER and had CT abdominal pelvis which showed moderate bilateral hydronephrosis and hydroureter. This could relate to reflux. Appearance not changed compared with exam. Dilated gallbladder increased compared to holograms history of cholecystitis. There are few calcified gallstones. Pancreatic calcifications appear unchanged and consistent with chronic pancreatitis. Sigmoid diverticulosis hypertrophic changes in the urinary bladder similar to old exam. Nodular density at the base of the bladder could be enlarged prostate or bladder mass. Unchanged. Enlarged prostate. There is a 12 mm stellate nodule in the subpleural lateral right lower lobe that appears to be new compared to old exam. Follow-up recommended. X-ray of the shoulder no acute fracture or dislocation. Moderate narrowing and mild to moderate spurring at the acromioclavicular joint is more prominent from prior. Hip x-ray showed mild to moderate degenerative joint disease. Laboratory data showed sodium 135 potassium 4.3 chloride 102 bicarb is 21 BUN 20 and creatinine 1.47 blood sugar is 267 Urinalysis showed large blood nitrate negative and large leukocyte esterase with elevated RBCs and WBCs. WBC 11.5 hemoglobin 14.3 and platelets 277. Coronavirus PCR not detected. 05/13/2021 Patient is currently lying in the bed. Awake alert and still complaining of left lower abdominal pain and hip pain. X-ray of the hip showed mild degenerative changes without acute fracture or dislocation. Overlying soft tissue appears unremarkable. Vascular calcifications noted. Otherwise no acute process identified. Patient admitted on pain management. Urology has seen the patient and recommend outpatient follow-up for cystoscopy. Resume Eliquis at this time. PT OT consult and continue with pain management. Subjective: resuming the care from above 05/14/2021 This is a pleasant 70 years old male who presents on 05/12 for limb pain and inability to walk. Patient complains from weakness in all 4 extremities but more pronounced in the left leg as he states he barely can lift it off the bed. Also he has decreased sensation when examined his left leg. However he complains also to some degree of weakness from all 4 extremities motor he could not move his both arms above his head however passively I could move them up and patient had good tone in his muscles and he could hold them up above his head but then he will drop down once released Patient denies any abdominal pain today and he states that his hematuria has been cleared today back to yellow urine. Patient also feels generally weak and he might need to go to rehab. Patient hematuria problem is not in the room and he has his urologist seen prior to hospitalization and he is supposed to get stress test with baby formula worker this, the Friday as part of preop evaluation. Also patient states that he was on baby aspirin at home but he ran out of it about one week prior to hospitalization. Also he is on Eliquis Patient told me that he has A. fib and that's why he takes Eliquis at home and that has been taking Eliquis and aspirated one week ago Subjective: Resuming the care of the patient again starting to 05/18/2021, after Dr. Jefferson. Patient currently in the ICU intubated and sedated. 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 With pulmonary/critical care team following him closely and help with vent management, today his FiO2 increased 50% up to 8% after pO2 was low 76. Rest of ABG was normal. He remains on PEEP of 8. Also patient is receiving IVIG. Today's the third dose. His lumbar puncture was consistent with his Gullian Juan syndrome with elevated opening up pressure at 30 cm of water . Also RBCs high 118, decreased protein 148, glucose is 104. Nucleated cells/WBC 1 only. Also patient developing low-grade fever and chest x-ray showing marked lower lobe infiltrate and his antibiotics was adjustment today ceftriaxone and to Zosyn. Patient remains critically ill. 05/19/2021 Patient re also he is developing hypotension requiring Levophed however he needs this dose today at 0.06 g per KG per minute. guerita in the ICU in critical condition intubated and sedated with pulmonary/critical care team are following him closely. Patient is developing respiratory failure secondary to his Gullina- Berri syndrome. And the neurology on the case and he is receiving IVIG He is a known case of A. fib on metoprolol and Eliquis, which was changed to he rabia drip because he needed lumbar puncture. Metoprolol was held once he needed Levophed , so today he developed A. fib and RVR which is currently controlled with amiodarone 400 mg twice a day with baby formula worker consulted and recommended echocardiogram. Also patient is on Zosyn for right basal versus bilateral basal pneumonia, also shown on today's chest x-ray. Remains intubated with FiO2 lower today to 55%, remains on PEEP of 8 like yesterday. He has no fever today. Leukocytosis slightly up 12.9, creatinine is stable at 1.4. 05/20/2021 Patient presents with weakness in all extremities motor on the left lower leg and decreased sensation, moved to the ICU on ) monitoring got deteriorated overnight and he had to be intubated because of worsening respiratory status. Neurology was already on the case and were following him closely. patient currently kept monitored in the ICU with pulmonary/critical care team helping with vent management. Also he is receiving IVIG under the kindness of neurology team, distal intubated and sedated which limits his examination. His leukocytosis improved to 8.6 today. Creatinine is stable at 1.4. He had no fever since yesterday. PEEP remains at 8, FiO2 remains at 50%, he is tachypneic. Sputum culture chronic gram-negative bacilli remains on Zosyn empirically pending final results of the culture. Is also an heparin drip just to liquids per baby formula worker. Also IVIG. Also Pepcid. Also his A. fib controlled with amiodarone 400 mg on the top of home dose of metoprolol 50 mg. Subjective: Patient cannot provide information Resuming the care of the patient on 05/23/2021 Patient underwent sedation trial today while he is on propofol with no success since yesterday. patient remains intubated and sedated secondary to his hypoxia and respiratory failure, with pulmonary/critical care team following him closely and help with vent management. He is status post 5 days of IVIG her pulmonary team following him closely as well . He's also on meropenem for ESBL Klebsiella obtained from his bronchoscopy lavage done on 05/18. He still tachypneic and recurrent low-grade fever over 100.4. He has mild leukocytosis of 11.2. Liver enzymes mildly elevated and chest x-ray shows stable perihilar and basal infiltrates. 05/24/2021 Patient is with Gullian Berri syndrome and respiratory failure requiring intubation and mechanical ventilation complicated by ESBL Klebsiella pneumonia on meropenem. He finished his 5 days of IVIG and currently undergoing sedation interruption and holiday by holding his propofol. The meantime he remains on heparin drip for which is wished to Eliquis. Also he is on insulin 20 units at sugar controlled WBC is 10.3, creatinine at baseline 1.3. He has fever of 100.2. FiO2 is 50% and he is tachypneic. Objective - Vital Signs Vital signs: Vital Signs Temp 99.5 F 05/24/21 08:00 Pulse 122 H 05/24/21 09:00 Resp 34 H 05/24/21 09:00 BP 128/89 05/24/21 09:00 Pulse Ox 92 L 05/24/21 09:00 Intake & Output 05/23/21 05/24/21 05/24/21 18:59 06:59 18:59 Intake Total 1058 1122 135.84 Output Total 1135 1525 325 Balance -77 -403 -189.16 Weight 92.17 kg 89.6 kg Intake: IV 300 325 50 Sodium Chloride 0.9% 1, 300 325 50 000 ml @ 25 mls/hr IV . Q24H [facility] Rx#:[id number] Intake, IV Titration 200 200 7.84 Amount propofoL 1,000 mg In 200 200 7.84 Empty Bag 1 bag @ Titrate IV .Q0M [facility] Rx#: [id number] Tube Feeding 468 507 78 Other 90 90 Output: Urine 1135 1525 325 Other: Voiding Method Indwelling Catheter Indwelling Catheter # Bowel Movements 1 ABP, PAP, CO, CI - Last Documented Arterial Blood Pressure 139/73 - Exam -GENERAL: The patient is intubated and sedated HEENT: Pupils are round and equally reacting to light. EOMI. No scleral icterus. No conjunctival pallor. Normocephalic, atraumatic. No pharyngeal erythema. No thyromegaly. CARDIOVASCULAR: S1 and S2 present. No murmurs, rubs, or gallops. PULMONARY: Chest is clear to auscultation, no wheezing or crackles. ABDOMEN: Soft, nontender, nondistended, normoactive bowel sounds. No palpable organomegaly. MUSCULOSKELETAL: No joint swelling or deformity. EXTREMITIES: No cyanosis, clubbing, or pedal edema. -NEUROLOGICAL: Examination is limited by patient intubation. Pupils are equal and reactive to light. No facial asymmetry. Absent reflexes SKIN: No rashes. no petechiae. - Labs CBC & Chem 7: 05/24/21 04:25 05/24/21 04:25 Labs: Abnormal Lab Results - Last 24 Hours (Table) 05/23/21 05/23/21 05/23/21 Range/Units 11:16 18:12 23:43 RBC (4.30-5.90) m/uL Hgb (13.0-17.5) gm/dL Neutrophils # (1.3-7.7) k/uL ABG pCO2 (35-45) mmHg ABG pO2 (83-108) mmHg ABG HCO3 (21-25) mmol/L ABG Total CO2 (19-24) mmol/L Sodium (137-145) mmol/L Chloride (98-107) mmol/L BUN (9-20) mg/dL Creatinine (0.66-1.25) mg/dL Glucose (74-99) mg/dL POC Glucose (mg/dL) 236 H 206 H 237 H (75-99) mg/dL AST (17-59) U/L ALT (4-49) U/L Alkaline Phosphatase (38-126) U/L Albumin (3.5-5.0) g/dL 05/24/21 05/24/21 05/24/21 Range/Units 04:25 04:25 04:54 RBC 4.11 L (4.30-5.90) m/uL Hgb 12.7 L (13.0-17.5) gm/dL Neutrophils # 8.1 H (1.3-7.7) k/uL ABG pCO2 46 H (35-45) mmHg ABG pO2 75 L (83-108) mmHg ABG HCO3 31 H (21-25) mmol/L ABG Total CO2 32 H (19-24) mmol/L Sodium 146 H (137-145) mmol/L Chloride 109 H (98-107) mmol/L BUN 50 H (9-20) mg/dL Creatinine 1.31 H (0.66-1.25) mg/dL Glucose 249 H (74-99) mg/dL POC Glucose (mg/dL) (75-99) mg/dL AST 92 H (17-59) U/L ALT 83 H (4-49) U/L Alkaline Phosphatase 131 H (38-126) U/L Albumin 2.5 L (3.5-5.0) g/dL 05/24/21 Range/Units 09:03 RBC (4.30-5.90) m/uL Hgb (13.0-17.5) gm/dL Neutrophils # (1.3-7.7) k/uL ABG pCO2 (35-45) mmHg ABG pO2 (83-108) mmHg ABG HCO3 (21-25) mmol/L ABG Total CO2 (19-24) mmol/L Sodium (137-145) mmol/L Chloride (98-107) mmol/L BUN (9-20) mg/dL Creatinine (0.66-1.25) mg/dL Glucose (74-99) mg/dL POC Glucose (mg/dL) 191 H (75-99) mg/dL AST (17-59) U/L ALT (4-49) U/L Alkaline Phosphatase (38-126) U/L Albumin (3.5-5.0) g/dL Assessment and Plan Assessment: 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 Secondary to ESBL Klebsiella Bladder mass versus enlarged prostate. Needs cystoscopy as an outpatient Chronic A. fib and RVR Bilateral moderate hydronephrosis Hematuria resolved now. Acute urinary tract infection. on antibiotic Hyperglycemia with uncontrolled diabetes type 2 insulin-dependent Hypomagnesemia Hypovolemic hyponatremia Acute kidney injury likely prerenal Chronic kidney disease stage III Paroxysmal atrial fibrillation on anticoagulation with Eliquis Hypertension Hyperlipidemia History of [place] status post cardiac catheterization. Plan: This is a pleasant 70 years old male who presents with hematuria and generalized weakness and generalized pain. Left leg weakness and decreased sensation. Continue mechanical ventilation with the help of the pulmonary/critical care team will follow him closely. Continue with sedation trial for pulmonary team status post 5 days of IVIG as per neurology team will follow him closely as well Continue Eliquis due to his history of A. fib. Continue with amiodarone and metoprolol. Cardiology on the case Continue with meropenem Urology evaluated the patient and recommended cystoscopy and possible TURP as an outpatient and he verbalized understanding and acceptance. The risk of cancer explained Prior to intubation Labs and medication were reviewed.. Continue same treatment. Continue with symptomatic treatment. Resume home medication. Monitor lytes and vitals. DVT and GI prophylaxis. Further recommendations as per clinical course of the patient DVT prophylaxis: On Eliquis GI Prophylaxis: Pepcid PT/OT: deferred Prognosis is guarded
--- NOTE | 2021-05-24 18:28 | P.PN ---
Subjective Progress Note Date: 05/24/21 The patient is seen at bedside and per nurse he somewhat better from respiratory. They are attempting to wean the patient off the vent and currently on spontaneous vent setting. IV Propofol 30mcg/kg/min and was stopped 2 hours prior to examining him. Objective - Vital Signs Vital signs: Vital Signs Temp 100.2 F H 05/24/21 16:00 Pulse 110 H 05/24/21 18:00 Resp 34 H 05/24/21 18:00 BP 99/77 05/24/21 18:00 Pulse Ox 94 L 05/24/21 18:00 Intake & Output 05/23/21 05/24/21 05/24/21 18:59 06:59 18:59 Intake Total 1058 1122 801.84 Output Total 1135 1525 1360 Balance -77 -403 -558.16 Weight 92.17 kg 89.6 kg Intake: IV 300 325 275 Sodium Chloride 0.9% 1, 300 325 275 000 ml @ 25 mls/hr IV . Q24H [facility] Rx#:[id number] Intake, IV Titration 200 200 7.84 Amount propofoL 1,000 mg In 200 200 7.84 Empty Bag 1 bag @ Titrate IV .Q0M [facility] Rx#: [id number] Tube Feeding 468 507 429 Other 90 90 90 Output: Urine 1135 1525 1360 Other: Voiding Method Indwelling Catheter Indwelling Catheter Indwelling Catheter # Bowel Movements 1 1 ABP, PAP, CO, CI - Last Documented Arterial Blood Pressure 110/60 - Exam GENERAL: The patient is lying in bed and does not seem in acute distress. LUNG: Intubated and is on ventilator. NEUROLOGICAL: Limited since patient is on IV Propofol 30mcg/kg/min---stopped 2 hours prior to examining him. Higher mental function: Severely drowsy but would follow simple commands. Cranial nerves: Patient would open his eyes. Pupils are round and equal. No facial weakness. Weak gag and cough to suctioning. Motor: The strength is limited in assessing exam but would pulls his arms and move his ankles but remains weakn (but some improvement compared to yesterday). - Labs CBC & Chem 7: 05/24/21 04:25 05/24/21 04:25 Labs: Abnormal Lab Results - Last 24 Hours (Table) 05/23/21 05/24/21 05/24/21 Range/Units 23:43 04:25 04:25 RBC 4.11 L (4.30-5.90) m/uL Hgb 12.7 L (13.0-17.5) gm/dL Neutrophils # 8.1 H (1.3-7.7) k/uL ABG pCO2 (35-45) mmHg ABG pO2 (83-108) mmHg ABG HCO3 (21-25) mmol/L ABG Total CO2 (19-24) mmol/L Sodium 146 H (137-145) mmol/L Chloride 109 H (98-107) mmol/L BUN 50 H (9-20) mg/dL Creatinine 1.31 H (0.66-1.25) mg/dL Glucose 249 H (74-99) mg/dL POC Glucose (mg/dL) 237 H (75-99) mg/dL AST 92 H (17-59) U/L ALT 83 H (4-49) U/L Alkaline Phosphatase 131 H (38-126) U/L Albumin 2.5 L (3.5-5.0) g/dL 05/24/21 05/24/21 05/24/21 Range/Units 04:54 09:03 11:44 RBC (4.30-5.90) m/uL Hgb (13.0-17.5) gm/dL Neutrophils # (1.3-7.7) k/uL ABG pCO2 46 H (35-45) mmHg ABG pO2 75 L (83-108) mmHg ABG HCO3 31 H (21-25) mmol/L ABG Total CO2 32 H (19-24) mmol/L Sodium (137-145) mmol/L Chloride (98-107) mmol/L BUN (9-20) mg/dL Creatinine (0.66-1.25) mg/dL Glucose (74-99) mg/dL POC Glucose (mg/dL) 191 H 154 H (75-99) mg/dL AST (17-59) U/L ALT (4-49) U/L Alkaline Phosphatase (38-126) U/L Albumin (3.5-5.0) g/dL 05/24/21 Range/Units 16:22 RBC (4.30-5.90) m/uL Hgb (13.0-17.5) gm/dL Neutrophils # (1.3-7.7) k/uL ABG pCO2 (35-45) mmHg ABG pO2 (83-108) mmHg ABG HCO3 (21-25) mmol/L ABG Total CO2 (19-24) mmol/L Sodium (137-145) mmol/L Chloride (98-107) mmol/L BUN (9-20) mg/dL Creatinine (0.66-1.25) mg/dL Glucose (74-99) mg/dL POC Glucose (mg/dL) 190 H (75-99) mg/dL AST (17-59) U/L ALT (4-49) U/L Alkaline Phosphatase (38-126) U/L Albumin (3.5-5.0) g/dL Assessment and Plan Assessment: * Guillain-Bergman syndrome. Patient has presented with rapidly progressive proximal and distal weakness of upper and lower extremities, diffuse areflexia, and sensory loss distally in the hands and in bilateral legs. Patient has developed progressive respiratory difficulty, with respiratory failure and now has been intubated. Completed IVIG for 5 days (last on 05/19/2021). * Ventilator-dependent respiratory failure due to above. * Right lower lobe pneumonia secondary due to ESBL Klesiella. * Acute UTI. * Diabetes, poorly controlled * Chronic renal insufficiency. * Hypertension * Chronic Atrial fibrillation * Hematuria with possible bladder malignancy, currently being evaluated by urology * Tobacco use 1 pack per day for 30 years. Plan: * Patient has completed IVIG infusion #5/5 days of IVIG on 05/19/2021. * Patient on mechanical ventilation for respiratory failure from Magalie Bergman syndrome. * spinal fluid examination revealed CSF proteins 148/60, glucose 104, WBC 1, RBC 118. In addition to GBS (causing albuminocytological dissociation), his poorly controlled DM can causes elevation of protein and glucose. * MRI of brain revealed no acute stroke. Mild to moderate diffuse cerebral atrophy and moderate chronic small vessel ischemic changes. No suspicious enhancement noted. * MRI of the cervical spine with and without contrast was suboptimal study without definitive abnormal cord signal or enhancement in the cervical spine. There is central slightly T2 hyperintense nonenhancing lesion in the upper thoracic spine over 1.8 cm segment favoring a focal syrinx. I personally reviewed MRI of the cervical spine. The lesion mentioned appeared artifactual in nature. Again, this lesion would not explain any symptoms in the upper extremities for sure. * Blood tests including TA negative B12 308, folic acid 6.3, TSH 3.25, hemoglobin A1c 10.6, ESR 28. IgG 1398, IgA is 513/350, IgM 73.9 normal. (No IgA deficiency). Immunofixation electrophoresis negative for monoclonal protein. Aldolase mildly elevated 7.9/7.6. Serum protein electrophoresis also negative for monoclonal gammopathy. Vitamin B6 is low 6, methylmalonic acid 0.16, vitamin B1 83 normal. Lyme titer negative. * Continue folic acid 1 mg daily and vitamin B12 1000 g PO daily. Continue vitamin B6 50 mg daily. * For chronic atrial fibrillation, will defer management to cardiology team. Patient on Eliquis * PT and OT are consulted. * DVT prophylaxis: on eliquis. * Will defer the rest of medical management to ICU and Pulmonary team. * Condition: Is very guarded. The plan is discussed with the patient's nurse. Will follow-up with patient sporadically. Chance Lim M.D. Neuro-Hospitalist Time with Patient: Less than 30
[2021-05-24 19:28] LABS: Glucose,Whole Blood 228 mg/dL (75-99)
[2021-05-24] MEDS: SODIUM CHLORIDE 0.9% 1,000 ML IV SCH (19:33)
[2021-05-24] MEDS: ATORVASTATIN 80 MG TAB PO SCH (19:33)
[2021-05-24] MEDS: INSULIN DETEMIR (LEVEMIR) 100 UNIT/ML SYR SQ SCH (20:26)
[2021-05-24 23:47] LABS: Glucose,Whole Blood 217 mg/dL (75-99)
[2021-05-25] MEDS: MEROPENEM 2 GM in SODIUM CHLORIDE 0.9% 100 ML IVPB SCH ×3 (00:19→16:01)
[2021-05-25] MEDS: INSULIN ASPART (NovoLOG) 100 UNIT/ML VIAL SQ SCH ×6 (00:20→18:43)
[2021-05-25] MEDS: IPRATROPIUM-ALBUTEROL 3 ML NEB INHALATION SCH ×5 (03:01→19:33)
[2021-05-25 04:48] LABS: Glucose,Whole Blood 264 mg/dL (75-99)
[2021-05-25 05:04] LABS: ABG Base Excess 7.6 mmol/L; ABG HCO3 32 mmol/L (21-25); ABG Oxygen Saturation 93.1 % (94-97); ABG PCO2 45 mmHg (35-45); ABG PH 7.46 (7.35-7.45); ABG PO2 68 mmHg (83-108); ABG TCO2 33 mmol/L (19-24)
[2021-05-25 05:05] LABS: Allen Test Performed? no
[2021-05-25] MEDS: MAGNESIUM SULFATE-D5W PMX 1 GM in DEXTROSE/WATER 1 100ML.BAG IVPB SCH ×2 (05:26→06:32)
[2021-05-25 05:27] LABS: Albumin 2.3 g/dL (3.5-5.0); Calcium 8.8 mg/dL (8.4-10.2); Potassium 4.3 mmol/L (3.5-5.1); Total Bilirubin 0.6 mg/dL (0.2-1.3); Total Protein 6.9 g/dL (6.3-8.2)
[2021-05-25 05:30] LABS: Basophils % (A) 0 %; Eosinophils # (A) 0.1 k/uL (0-0.7); Eosinophils % (A) 1 %; HCT 38.5 % (39.0-53.0); HGB 12.4 gm/dL (13.0-17.5); Lymphocytes # (A) 1.4 k/uL (1.0-4.8); Lymphocytes % (A) 15 %; MCH 31.3 pg (25.0-35.0); MCHC 32.3 g/dL (31.0-37.0); Mean Platelet Volume 9.3; Monocytes # (A) 0.5 k/uL (0-1.0); Monocytes % (A) 5 %; Neutrophils # (A) 7.3 k/uL (1.3-7.7); Neutrophils % (A) 77 %; Platelet Count 297 k/uL (150-450); RBC 3.97 m/uL (4.30-5.90); RDW 14.1 % (11.5-15.5); WBC 9.5 k/uL (3.8-10.6)
--- NOTE | 2021-05-25 07:36 | XR ---
EXAMINATION TYPE: XR chest 1V portable DATE OF EXAM: 05/25/2021 COMPARISON: 05/24/2021 HISTORY: SOB, Follow Up FINDINGS: Indwelling tubes and catheters are unchanged. Improved aeration left lower lobe. Persistent patchy density right lower lobe. Stable appearance of the cardio-mediastinal structures at this time. Pleural effusion unchanged. IMPRESSION: 1. Overall improvement suggested with residual infiltrate right lower lobe. Clinical correlation and follow up until resolution is recommended.
[2021-05-25 07:42] LABS: Glucose,Whole Blood 207 mg/dL (75-99)
[2021-05-25] MEDS: CYANOCOBALAMIN 500 MCG TAB PO SCH (08:37)
[2021-05-25] MEDS: AMIODARONE 200 MG TAB PO SCH ×2 (08:37→20:29)
[2021-05-25] MEDS: METOPROLOL TARTRATE 50 MG TAB PO SCH ×2 (08:37→20:29)
[2021-05-25] MEDS: APIXABAN 5 MG TAB PO SCH ×2 (08:37→20:29)
[2021-05-25] MEDS: FOLIC ACID 1 MG TAB PO SCH (08:37)
[2021-05-25] MEDS: CHLORHEXIDINE GLUCONATE 15 ML CUP MUCOUS MEM SCH ×2 (08:37→20:29)
[2021-05-25] MEDS: PYRIDOXINE 50 MG TAB PO SCH (08:39)
[2021-05-25] MEDS: SERTRALINE 50 MG TAB PO SCH (08:39)
[2021-05-25] MEDS: PANTOPRAZOLE 40 MG/10 ML VIAL IVP SCH (08:39)
[2021-05-25] MEDS: NICOTINE 14MG/24HR PATCH TRANSDERM SCH (08:56)
[2021-05-25 10:59] LABS: Glucose,Whole Blood 176 mg/dL (75-99)
--- NOTE | 2021-05-25 11:03 | P.PN ---
Subjective Progress Note Date: 05/25/21 Principal diagnosis: Respiratory failure. Reevaluated today on 05/18/2021, patient remains in the ICU, intubated and mechanically ventilated. However patient was noted to develop worsening chest x-ray and the right lower lobe collapse/atelectasis, and intermittently we have been increasing his FiO2 with worsening chest x-ray, hence I recommended bronchoscopy today and he underwent a bronchoscopy with bronchoalveolar lavage of the right middle lobe, right lower lobe, and a mucous plugs worse suctioned out of the airway especially on the right side. Procedure was well-tolerated, and the plan is to go down on his FiO2. He was initially on 50%, we had to increase his FiO2 up to 80%. He is now back on assist control mode of mechanical ventilation rate 30 tidal volume 430 FiO2 I 50% and PEEP of 8. ABG showed a pO2 of 76 pCO2 of 38 pH of 7.35. Peak airway pressure is 26 blood pressure is 23. Patient remains on multiple drips including norepinephrine, propofol, 45 mcg/kg/m, he is also on norepinephrine at 7 mcg/m, IV fluid at 75 mL per hour in the form of 0.9 normal saline. Patient continues to have persistent hematuria. Chest x-ray as noted above showed mostly right lower lobe collapse. And atelectasis. 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 Patient remains on IVIG. Patient is receiving enteral feeding in the form of vital HPI at 14 mL per hour. Considering the worsening of his pulmonary status today, patient was not felt to be ideal to consider weaning or to assess off sedation. Reevaluated today on 05/19/2021, patient remains in the ICU, intubated and mechanically ventilated. Patient is on assist control rate of 3 to tidal volume is 430 FiO2 of 65% and PEEP of 8. ABG showed a pO2 of 98 pCO2 of 50 pH of 7.26. Hence I increased the rate to 34, I have also cut down the FiO2 to 55%, PEEP at 8. And tidal volumes the same. Patient remains on propofol at 25 mcg/kg/m, he is also on norepinephrine at 0.06 mcg/kg/m. Amiodarone at 0.5, patient had atrial fibrillation with RVR yesterday, he is known to have history of chronic atrial fibrillation. He is also on heparin drip. Patient is on vital HPI at 24 mL per hour. Chest x-ray is showing significant improvement in his right lower lobe atelectasis/possible pneumonia. Remains on antibiotics, cultures from his bronchoscopy and BAL are pending. WBC count is 4.9 hemoglobin is 12.2. PTT is therapeutic at 58. Electrolytes are normal, renal profile is improving with a BUN of 33 creatinine 1.46. Blood sugar is 171. Reevaluated today on 05/20/2021, patient remains in the ICU, intubated and mechanically ventilated. Patient is on assist control rate of 34, tidal volume 430 FiO2 55% and a cardiac down to 50% today, he is on a PEEP of 8. ABG showed a pO2 of 126 pCO2 of 39 pH of 7.37. Patient is sedated, he is on propofol at 45 mcg/kg/m, he is on heparin for his atrial fibrillation he is on vital HPI at 24 mL/h/goal his IV fluid is at 75 mL per hour and I cut it down to KVO mostly because his chest x-ray is showing mild interstitial edema, and airspace disease bilaterally. Patient will be given a dose of Lasix 40 mg IV push. His WBC count is 8.6 hemoglobin is 11.1. Chest x-ray showed bibasilar atelectas is/infiltrates, and slight interstitial edema. Patient was awakened yesterday, and he was appropriate, followed simple instructions according to the nurse. His BAL from the right lower lobe and right middle lobe is showing gram-negative bacilli, and many polymorphonuclear leukocytes. Final identification is pending. Patient is empirically on Zosyn. Renal functioning is steadily improving, creatinine today is 1.20, this was as high as 1.55 only 4 days ago Progress note dated 05/21/2021. This is a 70-year-old male, seen in room 251. The patient was admitted on 05/12/2021, with hematuria and dehydration. The patient came to the intensive care unit on 05/17/2021, for respiratory failure, and was intubated on the same day. Patient was apparently found have Guillain-Wilson syndrome. The patient underwent bronchoscopy on 05/18/2021. The bronchoscopy washings revealed ESBL Klebsiella. The patient is currently on meropenem. Zosyn was. The patient remains on the mechanical ventilator, with a volume assist control mode, rate 34, tidal volume 430, FiO2 50%, PEEP of 8. Arterial blood gases show a PaO2 of 62, pCO2 38, pH is 7.44. The patient's currently on saline at 25 mL an hour, propofol at 35 mcg/kg/m, and vital HP at 24 mL an hour, which is goal. White count 7.3, hemoglobin 11.3, hematocrit 34, platelet count 184,000. Sodium 141, potassium 3.3, chlorides 110, CO2 24, anion gap 7, BUN 34, creatinine 1.40. The patient chest x-ray showed diffuse interstitial changes and bibasilar patchy airspace disease. Progress note dated 05/22/2021. 70-year-old male, again seen in room 251. The patient was admitted with a diagnosis of hematuria and dehydration on 05/12/2021. The patient came to the intensive care unit on 05/17/2021. This was because of respiratory failure, and he was intubated on the same day. 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 For that, he received IVIG for 5 days. The patient remains on the mechanical ventilator. He did undergo bronchoscopy on 05/18/2021. The patient was found to have ESBL Klebsiella pneumoniae. The patient is currently on meropenem. Currently, ventilator settings include the volume assist control, rate of 34, t idal volume or 30, FiO2 50%, and PEEP of 8. Blood gases show pO2 of 66, pCO2 43, pH 7.43. The patient is on saline at 25 mL an hour, propofol at 50 mcg/kg/m, and vital high protein at 39 mL an hour, which is goal. White count 8.9, hemoglobin 11.8, hematocrit 36, platelet count 197,000. Sodium 142, potassium 4, chlorides 110, CO2 24, anion gap 8, BUN 34, creatinine 1.27. AST 80, ALT 55. Albumin 2.4. Chest x-ray shows bilateral lower lobe infiltrates and atelectasis. The chest x-ray is essentially unchanged. Progress note dated 05/23/2021. 70-year-old male, again seen in room 251. The patient was initially admitted with a diagnosis of hematuria and dehydration on May 12. He came to the intensive care unit on 05/17/2021. The patient was intubated on the same day for respiratory failure. The patient was discovered to have L-G-B syndrome. The patient received IVIG for 5 days. He remains on the mechanical ventilator. Yesterday, he had a brief daily interruption of sedation but did poorly. He needed to be re-sedated. Currently, he's on volume assist control, rate 34, t idal volume 430, FiO2 50%, and PEEP of 8. Blood gases show pO2 66, pCO2 44, and pH of 7.45. The patient's currently on propofol at 40 mcg/kg/m, saline at 25 mL an hour, and vital high protein at goal, which is 39 mL an hour. The patient was also discovered to have ESBL Klebsiella pneumoniae, and is currently on meropenem. Labs include a white count of 11.2, hemoglobin 12.5, hematocrit 38.1, platelet count 227,000. Sodium 146, potassium 4, chlorides 109, CO2 29, anion gap 8, BUN 37, and creatinine 1.21. AST is 102 with an ALT of 75. Chest x-ray shows bilateral perihilar and basilar infiltrates, and is essentially unchanged from the day prior. Progress note dated 05/24/2021. 70-year-old male, seen in room 251. The patient was initially admitted with a diagnosis of hematuria and dehydration on /. He came to the intensive care unit on 05/17/2021. The patient was intubated on the same day for respiratory failure. The patient was diagnosed by neurology to have L-G-B syndrome, and received IVIG for 5 days. He remains on the ventilator, but is very weak. We have done daily interruption of sedation but breathing trials have been very limited. The patient remains on the ventilator, on the volume assist control mode, rate 24, tidal volume or 30, FiO2 60% with a PEEP of 8. Blood gases show pO2 75, pCO2 46, pH is 7.43. The patient's on saline at 25 mL an hour, and nya l high protein at 39 mL an hour, which is goal. In addition, the patient remains on propofol at 25 mcg/kg/m. We will attempt another weaning trial with pressure support of 10 and CPAP of 5. Lab work includes a white count 10.3, hemoglobin 12.7, hematocrit 39.7, and a normal platelet count. Sodium 146, potassium 4.4, chlorides 109, CO2 28, anion gap 9, BUN 50, creatinine 1.31. Albumin is 2.5. Chest x-ray from today is unchanged. Progress note dated 05/25/2021. 70-year-old male, again seen in room 251. The patient was initially admitted with a diagnosis of hematuria, and dehydration, on O2/05. The patient came to the intensive care unit on 05/17/2021. The patient was intubated on May 17. The patient had respiratory failure, and was evaluated by neurology, and was found to have L-G-B syndrome. The patient did receive IVIG for 5 days. The patient remains on the mechanical ventilator, but has been very weak. He did have a spontaneous breathing trial yesterday, on pressure support of 10, and CPAP of 5, for 6 hours. Currently, he is on volume assist control, rate 34, ti anitha volume 430, FiO2 60%, and PEEP of 8. Arterial blood gases show pO2 of 68, pCO2 45, and pH is 7.46. The patient's on propofol at 25 mcg/kg/m, saline at 20 mL an hour, and vital high protein at 39 mL an hour. That is goal. The patient is currently on meropenem for ESBL Klebsiella, discovered on bronchoscopy on 05/18. White count 9.5, hemoglobin 12.4, hematocrit 38.5, platelet count 297,000. Sodium 147, potassium 4.3, chlorides 113, CO2 29, anion gap 5, BUN 58, creatinine 1.38. AST 109, with an ALT of 98. Albumin is 2.3. Chest x-ray is improved, with residual infiltrate in the right lower lobe. Objective - Vital Signs Vital signs: Vital Signs Temp 97.8 F 05/25/21 08:00 Pulse 78 05/25/21 10:35 Resp 28 H 05/25/21 10:00 BP 98/72 05/25/21 10:00 Pulse Ox 95 05/25/21 10:00 Intake & Output 05/24/21 05/25/21 05/25/21 18:59 06:59 18:59 Intake Total 894.00 920.944 330.867 Output Total 1360 990 375 Balance -466.00 -69.056 -44.133 Weight 89.9 kg 89.9 kg Intake: IV 275 300 100 Sodium Chloride 0.9% 1, 275 300 100 000 ml @ 25 mls/hr IV . Q24H [facility] Rx#:[id number] Intake, IV Titration 100.00 62.944 44.867 Amount propofoL 1,000 mg In 100.00 62.944 44.867 Empty Bag 1 bag @ Titrate IV .Q0M [facility] Rx#: [id number] Tube Feeding 429 468 156 Other 90 90 30 Output: Urine 1360 990 375 Other: Voiding Method Indwelling Catheter Indwelling Catheter Indwelling Catheter # Bowel Movements 1 ABP, PAP, CO, CI - Last Documented Arterial Blood Pressure 87/66 - Exam No acute distress, intubated, and mechanically ventilated, sedated, with an orally placed endotracheal tube. HEENT examination is grossly unremarkable. Neck supple. Full range of motion. No adenopathy thyromegaly or neck vein distention. Cardiovascular examination reveals regular rhythm rate. S1-S2 normal. No S3 or S4. No discernible murmur noted. Heart sounds are distant. Heart rate 78 bpm. Lungs reveal bilateral coarse rhonchi. No wheezes. No crackles. Breath sounds equal bilaterally. Saturations are 95 % Abdomen soft bowel sounds are heard. No masses or tenderness. Extremities are intact. No cyanosis or clubbing. Mild edema is noted. Skin is without rash or lesion. Neurologic examination is difficult to assess as the patient's currently sedated with propofol. - Labs CBC & Chem 7: 05/25/21 04:05 05/25/21 04:05 Labs: Abnormal Lab Results - Last 24 Hours (Table) 05/24/21 05/24/21 05/24/21 Range/Units 11:44 16:22 19:26 RBC (4.30-5.90) m/uL Hgb (13.0-17.5) gm/dL Hct (39.0-53.0) % ABG pH (7.35-7.45) ABG pO2 (83-108) mmHg ABG HCO3 (21-25) mmol/L ABG Total CO2 (19-24) mmol/L ABG O2 Saturation (94-97) % Sodium (137-145) mmol/L Chloride (98-107) mmol/L BUN (9-20) mg/dL Creatinine (0.66-1.25) mg/dL Glucose (74-99) mg/dL POC Glucose (mg/dL) 154 H 190 H 228 H (75-99) mg/dL AST (17-59) U/L ALT (4-49) U/L Albumin (3.5-5.0) g/dL 05/24/21 05/25/21 05/25/21 Range/Units 23:45 04:05 04:05 RBC 3.97 L (4.30-5.90) m/uL Hgb 12.4 L (13.0-17.5) gm/dL Hct 38.5 L (39.0-53.0) % ABG pH (7.35-7.45) ABG pO2 (83-108) mmHg ABG HCO3 (21-25) mmol/L ABG Total CO2 (19-24) mmol/L ABG O2 Saturation (94-97) % Sodium 147 H (137-145) mmol/L Chloride 113 H (98-107) mmol/L BUN 58 H (9-20) mg/dL Creatinine 1.38 H (0.66-1.25) mg/dL Glucose 271 H (74-99) mg/dL POC Glucose (mg/dL) 217 H (75-99) mg/dL AST 109 H (17-59) U/L ALT 98 H (4-49) U/L Albumin 2.3 L (3.5-5.0) g/dL 05/25/21 05/25/21 05/25/21 Range/Units 04:46 05:02 07:41 RBC (4.30-5.90) m/uL Hgb (13.0-17.5) gm/dL Hct (39.0-53.0) % ABG pH 7.46 H (7.35-7.45) ABG pO2 68 L (83-108) mmHg ABG HCO3 32 H (21-25) mmol/L ABG Total CO2 33 H (19-24) mmol/L ABG O2 Saturation 93.1 L (94-97) % Sodium (137-145) mmol/L Chloride (98-107) mmol/L BUN (9-20) mg/dL Creatinine (0.66-1.25) mg/dL Glucose (74-99) mg/dL POC Glucose (mg/dL) 264 H 207 H (75-99) mg/dL AST (17-59) U/L ALT (4-49) U/L Albumin (3.5-5.0) g/dL Assessment and Plan Assessment: Acute hypoxemic respiratory failure secondary to Wbgklm-Kmczwfcj-Doqsg syndrome, status post intubation and mechanical ventilation, on 05/17/2021 Progressive/ascending muscle weakness with sensory loss and areflexia, secondary to L-G-B syndrome, status post 5 days of IVIG. Right lower lobe pneumonia secondary to ESBL Klebsiella, currently on meropenem. Status post bronchoscopy, 05/18/2021. Hematuria, with possible bladder malignancy, currently being evaluated by urology. History of chronic atrial fibrillation. [id number]-tohr history of tobacco use. Benign essential hypertension. Type 2 diabetes mellitus. Chronic renal insufficiency. Plan: Plan dated 05/21/2021. The patient remains on the mechanical ventilator. He is not yet ready to be weaned from mechanical ventilation. The patient continues on IVIG as per neurology. The patient continues on GI and DVT prophylaxis. The bronchial washing showed evidence of ESBL Klebsiella, and the antibiotics were changed from Zosyn to meropenem. We will continue tube feedings. Additional re commendations and suggestions are forthcoming. Prognosis is guarded. We will continue to follow and make recommendations where appropriate. Plan dated 05/22/2021. The patient remains on the mechanical ventilator. We will attempt a daily interruption of sedation, and a spontaneous breathing trial, with a pressure support of 10 and CPAP of 5. The patient did receive 5 days of IVIG. The patient's currently on meropenem for his Klebsiella found in the bronchoscopy wash, on May 18. The patient remains on propofol at 50 mcg/kg/m. He is getting nutrition at goal. Overall prognosis is guarded. We'll continue to follow make recommendations where appropriate. Plan dated 05/23/2021. The patient remains on the ventilator. The patient had a brief daily interruption of sedation yesterday, but required re-sedation. The patient appears not to be ready for significant weaning and extubation. The patient did receive 5 days of IVIG. The patient is currently on meropenem for Klebsiella pneumoniae, ESBL, found on bronchoscopy washings from May 18. The patient remains on propofol at 40 mcg/kg/m. The patient is receiving tube feedings. Additional recommendations and suggestions are forthcoming. Prognosis is guarded. We will continue to follow make recommendations where appropriate. Plan dated 05/24/2021. The patient remains on the ventilator. We do do a daily interruption's of sedation with spontaneous breathing trials, but the patient is profoundly weak, and only last minutes on the pressure support and CPAP. We will continue to try. He is currently on meropenem for ESBL Klebsiella pneumoniae found in the bronchoscopy washings from 05/18. The patient remains on propofol, and is been cut back to 25 mcg/kg/m. The patient is receiving tube feedings. He is at goal. Additional recommendations and suggestions are forthcoming. Prognosis is guarded. Plan dated 05/25/2021. The patient remains on ventilator, did have a successful weaning trial yesterday. We will again attempt a daily interruption of sedation and a spontaneous breathing trial. The patient will be on PSV 10, and CPAP of 5. Clinically, the patient appears to be a bit more awake. The patient was intubated on O2/10. If there is no progression, over the weekend, or early next week, we will opt for a tracheostomy tube. Blood gases are reasonable. The patient is being nourished. The patient did receive IVIG for 5 days. Labs, x- rays, and medications are all reviewed. Prognosis is guarded. We will continue to follow the patient and make recommendations where appropriate. Time with Patient: Greater than 30
[2021-05-25 15:49] LABS: Glucose,Whole Blood 172 mg/dL (75-99)
--- NOTE | 2021-05-25 18:25 | P.PN ---
Subjective From records Patient is a 70-year-old male with a known history of hypertension, hyperlipidemia, diabetes type 2 insulin-dependent, history of RI status post cardiac catheterization, currently everyday smoker and BPH presented to ER with complaints of left hip pain and also left shoulder pain. Pain gets worse with movement. Patient denies any recent falls. Patient initially presented to ER and had CT abdominal pelvis which showed moderate bilateral hydronephrosis and hydroureter. This could relate to reflux. Appearance not changed compared with exam. Dilated gallbladder increased compared to holograms history of cholecystitis. There are few calcified gallstones. Pancreatic calcifications appear unchanged and consistent with chronic pancreatitis. Sigmoid diverticulosis hypertrophic changes in the urinary bladder similar to old exam. Nodular density at the base of the bladder could be enlarged prostate or bladder mass. Unchanged. Enlarged prostate. There is a 12 mm stellate nodule in the subpleural lateral right lower lobe that appears to be new compared to old exam. Follow-up recommended. X-ray of the shoulder no acute fracture or dislocation. Moderate narrowing and mild to moderate spurring at the acromioclavicular joint is more prominent from prior. Hip x-ray showed mild to moderate degenerative joint disease. Laboratory data showed sodium 135 potassium 4.3 chloride 102 bicarb is 21 BUN 20 and creatinine 1.47 blood sugar is 267 Urinalysis showed large blood nitrate negative and large leukocyte esterase with elevated RBCs and WBCs. WBC 11.5 hemoglobin 14.3 and platelets 277. Coronavirus PCR not detected. 05/13/2021 Patient is currently lying in the bed. Awake alert and still complaining of left lower abdominal pain and hip pain. X-ray of the hip showed mild degenerative changes without acute fracture or dislocation. Overlying soft tissue appears unremarkable. Vascular calcifications noted. Otherwise no acute process identified. Patient admitted on pain management. Urology has seen the patient and recommend outpatient follow-up for cystoscopy. Resume Eliquis at this time. PT OT consult and continue with pain management. Subjective: resuming the care from above 05/14/2021 This is a pleasant 70 years old male who presents on 05/12 for limb pain and inability to walk. Patient complains from weakness in all 4 extremities but more pronounced in the left leg as he states he barely can lift it off the bed. Also he has decreased sensation when examined his left leg. However he complains also to some degree of weakness from all 4 extremities motor he could not move his both arms above his head however passively I could move them up and patient had good tone in his muscles and he could hold them up above his head but then he will drop down once released Patient denies any abdominal pain today and he states that his hematuria has been cleared today back to yellow urine. Patient also feels generally weak and he might need to go to rehab. Patient hematuria problem is not in the room and he has his urologist seen prior to hospitalization and he is supposed to get stress test with wood experimental mechanic this, the Friday as part of preop evaluation. Also patient states that he was on baby aspirin at home but he ran out of it about one week prior to hospitalization. Also he is on Eliquis Patient told me that he has A. fib and that's why he takes Eliquis at home and that has been taking Eliquis and aspirated one week ago Subjective: Resuming the care of the patient again starting to 05/18/2021, after Dr. Jefferson. Patient currently in the ICU intubated and sedated. 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 With pulmonary/critical care team following him closely and help with vent management, today his FiO2 increased 50% up to 8% after pO2 was low 76. Rest of ABG was normal. He remains on PEEP of 8. Also patient is receiving IVIG. Today's the third dose. His lumbar puncture was consistent with his Gullian Juan syndrome with elevated opening up pressure at 30 cm of water . Also RBCs high 118, decreased protein 148, glucose is 104. Nucleated cells/WBC 1 only. Also patient developing low-grade fever and chest x-ray showing marked lower lobe infiltrate and his antibiotics was adjustment today ceftriaxone and to Zosyn. Patient remains critically ill. 05/19/2021 Patient re also he is developing hypotension requiring Levophed however he needs this dose today at 0.06 g per KG per minute. guerita in the ICU in critical condition intubated and sedated with pulmonary/critical care team are following him closely. Patient is developing respiratory failure secondary to his Gullina- Berri syndrome. And the neurology on the case and he is receiving IVIG He is a known case of A. fib on metoprolol and Eliquis, which was changed to he rabia drip because he needed lumbar puncture. Metoprolol was held once he needed Levophed , so today he developed A. fib and RVR which is currently controlled with amiodarone 400 mg twice a day with wood experimental mechanic consulted and recommended echocardiogram. Also patient is on Zosyn for right basal versus bilateral basal pneumonia, also shown on today's chest x-ray. Remains intubated with FiO2 lower today to 55%, remains on PEEP of 8 like yesterday. He has no fever today. Leukocytosis slightly up 12.9, creatinine is stable at 1.4. 05/20/2021 Patient presents with weakness in all extremities motor on the left lower leg and decreased sensation, moved to the ICU on ) monitoring got deteriorated overnight and he had to be intubated because of worsening respiratory status. Neurology was already on the case and were following him closely. patient currently kept monitored in the ICU with pulmonary/critical care team helping with vent management. Also he is receiving IVIG under the kindness of neurology team, distal intubated and sedated which limits his examination. His leukocytosis improved to 8.6 today. Creatinine is stable at 1.4. He had no fever since yesterday. PEEP remains at 8, FiO2 remains at 50%, he is tachypneic. Sputum culture chronic gram-negative bacilli remains on Zosyn empirically pending final results of the culture. Is also an heparin drip just to liquids per wood experimental mechanic. Also IVIG. Also Pepcid. Also his A. fib controlled with amiodarone 400 mg on the top of home dose of metoprolol 50 mg. Subjective: Patient cannot provide information Resuming the care of the patient on 05/23/2021 Patient underwent sedation trial today while he is on propofol with no success since yesterday. patient remains intubated and sedated secondary to his hypoxia and respiratory failure, with pulmonary/critical care team following him closely and help with vent management. He is status post 5 days of IVIG her pulmonary team following him closely as well . He's also on meropenem for ESBL Klebsiella obtained from his bronchoscopy lavage done on 05/18. He still tachypneic and recurrent low-grade fever over 100.4. He has mild leukocytosis of 11.2. Liver enzymes mildly elevated and chest x-ray shows stable perihilar and basal infiltrates. 05/24/2021 Patient is with Gullian Berri syndrome and respiratory failure requiring intubation and mechanical ventilation complicated by ESBL Klebsiella pneumonia on meropenem. He finished his 5 days of IVIG and currently undergoing sedation interruption and holiday by holding his propofol. The meantime he remains on heparin drip for which is wished to Eliquis. Also he is on insulin 20 units at sugar controlled WBC is 10.3, creatinine at baseline 1.3. He has fever of 100.2. FiO2 is 50% and he is tachypneic. 05/25/2021 Patient remains intubated and sedated in the ICU with pulmonary/critical care team following him closely. And help with vent management. Patient undergoing sedation holiday while he is on a propofol. He finished treatment for IVIG and currently being monitored closely. He is also on meropenem for Klebsiella pneumonia. He is still tachycardic, tachypneic and building up low-grade temperature at 100 today. Fungal cultures positive for tawana but chest x-ray showing improving right lo wer lobe infiltrate. His creatinine is 1.38, sodium 147. Objective - Vital Signs Vital signs: Vital Signs Temp 97.8 F 05/25/21 08:00 Pulse 79 05/25/21 10:00 Resp 28 H 05/25/21 10:00 BP 98/72 05/25/21 10:00 Pulse Ox 95 05/25/21 10:00 Intake & Output 05/24/21 05/25/21 05/25/21 18:59 06:59 18:59 Intake Total 894.00 920.944 330.867 Output Total 1360 990 375 Balance -466.00 -69.056 -44.133 Weight 89.9 kg 89.9 kg Intake: IV 275 300 100 Sodium Chloride 0.9% 1, 275 300 100 000 ml @ 25 mls/hr IV . Q24H [facility] Rx#:[id number] Intake, IV Titration 100.00 62.944 44.867 Amount propofoL 1,000 mg In 100.00 62.944 44.867 Empty Bag 1 bag @ Titrate IV .Q0M [facility] Rx#: [id number] Tube Feeding 429 468 156 Other 90 90 30 Output: Urine 1360 990 375 Other: Voiding Method Indwelling Catheter Indwelling Catheter Indwelling Catheter # Bowel Movements 1 ABP, PAP, CO, CI - Last Documented Arterial Blood Pressure 87/66 - Exam -GENERAL: The patient is intubated and sedated HEENT: Pupils are round and equally reacting to light. EOMI. No scleral icterus. No conjunctival pallor. Normocephalic, atraumatic. No pharyngeal erythema. No thyromegaly. CARDIOVASCULAR: S1 and S2 present. No murmurs, rubs, or gallops. PULMONARY: Chest is clear to auscultation, no wheezing or crackles. ABDOMEN: Soft, nontender, nondistended, normoactive bowel sounds. No palpable organomegaly. MUSCULOSKELETAL: No joint swelling or deformity. EXTREMITIES: No cyanosis, clubbing, or pedal edema. -NEUROLOGICAL: Examination is limited by patient intubation. Pupils are equal and reactive to light. No facial asymmetry. Absent reflexes SKIN: No rashes. no petechiae. - Labs CBC & Chem 7: 05/25/21 04:05 05/25/21 04:05 Labs: Abnormal Lab Results - Last 24 Hours (Table) 05/24/21 05/24/21 05/24/21 Range/Units 11:44 16:22 19:26 RBC (4.30-5.90) m/uL Hgb (13.0-17.5) gm/dL Hct (39.0-53.0) % ABG pH (7.35-7.45) ABG pO2 (83-108) mmHg ABG HCO3 (21-25) mmol/L ABG Total CO2 (19-24) mmol/L ABG O2 Saturation (94-97) % Sodium (137-145) mmol/L Chloride (98-107) mmol/L BUN (9-20) mg/dL Creatinine (0.66-1.25) mg/dL Glucose (74-99) mg/dL POC Glucose (mg/dL) 154 H 190 H 228 H (75-99) mg/dL AST (17-59) U/L ALT (4-49) U/L Albumin (3.5-5.0) g/dL 05/24/21 05/25/21 05/25/21 Range/Units 23:45 04:05 04:05 RBC 3.97 L (4.30-5.90) m/uL Hgb 12.4 L (13.0-17.5) gm/dL Hct 38.5 L (39.0-53.0) % ABG pH (7.35-7.45) ABG pO2 (83-108) mmHg ABG HCO3 (21-25) mmol/L ABG Total CO2 (19-24) mmol/L ABG O2 Saturation (94-97) % Sodium 147 H (137-145) mmol/L Chloride 113 H (98-107) mmol/L BUN 58 H (9-20) mg/dL Creatinine 1.38 H (0.66-1.25) mg/dL Glucose 271 H (74-99) mg/dL POC Glucose (mg/dL) 217 H (75-99) mg/dL AST 109 H (17-59) U/L ALT 98 H (4-49) U/L Albumin 2.3 L (3.5-5.0) g/dL 05/25/21 05/25/21 05/25/21 Range/Units 04:46 05:02 07:41 RBC (4.30-5.90) m/uL Hgb (13.0-17.5) gm/dL Hct (39.0-53.0) % ABG pH 7.46 H (7.35-7.45) ABG pO2 68 L (83-108) mmHg ABG HCO3 32 H (21-25) mmol/L ABG Total CO2 33 H (19-24) mmol/L ABG O2 Saturation 93.1 L (94-97) % Sodium (137-145) mmol/L Chloride (98-107) mmol/L BUN (9-20) mg/dL Creatinine (0.66-1.25) mg/dL Glucose (74-99) mg/dL POC Glucose (mg/dL) 264 H 207 H (75-99) mg/dL AST (17-59) U/L ALT (4-49) U/L Albumin (3.5-5.0) g/dL Assessment and Plan Assessment: 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 Secondary to ESBL Klebsiella Bladder mass versus enlarged prostate. Needs cystoscopy as an outpatient Chronic A. fib and RVR Bilateral moderate hydronephrosis Hematuria resolved now. Acute urinary tract infection. on antibiotic Hyperglycemia with uncontrolled diabetes type 2 insulin-dependent Hypomagnesemia Hypovolemic hyponatremia Acute kidney injury likely prerenal Chronic kidney disease stage III Paroxysmal atrial fibrillation on anticoagulation with Eliquis Hypertension Hyperlipidemia History of RI status post cardiac catheterization. Plan: This is a pleasant 70 years old male who presents with hematuria and generalized weakness and generalized pain. Left leg weakness and decreased sensation. Continue mechanical ventilation with the help of the pulmonary/critical care team will follow him closely. Continue with sedation trial for pulmonary team status post 5 days of IVIG as per neurology team will follow him closely as well Continue Eliquis due to his history of A. fib. Continue with amiodarone and metoprolol. Cardiology on the case Continue with meropenem Urology evaluated the patient and recommended cystoscopy and possible TURP as an outpatient and he verbalized understanding and acceptance. The risk of cancer e xplained Prior to intubation Labs and medication were reviewed.. Continue same treatment. Continue with symptomatic treatment. Resume home medication. Monitor lytes and vitals. DVT and GI prophylaxis. Further recommendations as per clinical course of the patient DVT prophylaxis: On Eliquis GI Prophylaxis: Pepcid PT/OT: deferred Prognosis is guarded
[2021-05-25 18:28] LABS: Glucose,Whole Blood 253 mg/dL (75-99)
[2021-05-25] MEDS: ATORVASTATIN 80 MG TAB PO SCH (20:29)
[2021-05-25] MEDS: INSULIN DETEMIR (LEVEMIR) 100 UNIT/ML SYR SQ SCH (20:30)
[2021-05-25] MEDS: SODIUM CHLORIDE 0.9% 1,000 ML IV SCH (20:34)
[2021-05-26] MEDS: IPRATROPIUM-ALBUTEROL 3 ML NEB INHALATION SCH ×6 (00:02→19:26)
[2021-05-26 00:19] LABS: Glucose,Whole Blood 299 mg/dL (75-99)
[2021-05-26] MEDS: MEROPENEM 2 GM in SODIUM CHLORIDE 0.9% 100 ML IVPB SCH ×4 (00:22→23:43)
[2021-05-26] MEDS: INSULIN ASPART (NovoLOG) 100 UNIT/ML VIAL SQ SCH ×9 (00:22→23:43)
[2021-05-26 04:05] LABS: Glucose,Whole Blood 186 mg/dL (75-99)
[2021-05-26 04:07] LABS: HCT 35.6 % (39.0-53.0); HGB 11.4 gm/dL (13.0-17.5); MCH 30.8 pg (25.0-35.0); MCV 96.3 fL (80.0-100.0); Mean Platelet Volume 9.2; Platelet Count 281 k/uL (150-450); RDW 13.6 % (11.5-15.5); WBC 12.6 k/uL (3.8-10.6)
[2021-05-26 04:14] LABS: INR 1.2 (<1.2); Prothrombin Time 12.6 sec (9.0-12.0)
[2021-05-26 04:33] LABS: Albumin 2.4 g/dL (3.5-5.0); Potassium 4.2 mmol/L (3.5-5.1); Total Bilirubin 0.6 mg/dL (0.2-1.3); Total Protein 6.8 g/dL (6.3-8.2)
[2021-05-26 05:44] LABS: ABG Base Excess 7.5 mmol/L; ABG HCO3 32 mmol/L (21-25); ABG Oxygen Saturation 91.3 % (94-97); ABG PCO2 47 mmHg (35-45); ABG PH 7.44 (7.35-7.45); ABG PO2 63 mmHg (83-108); ABG TCO2 33 mmol/L (19-24); Allen Test Performed? Yes
--- NOTE | 2021-05-26 07:37 | XR ---
EXAMINATION TYPE: XR chest 1V portable DATE OF EXAM: 05/26/2021 COMPARISON: 04/24/2021 HISTORY: 70 years Male. STUDY INDICATION GIVEN: mechanical vent . TECHNIQUE: Frontal chest radiograph IMPRESSION: Tip of endotracheal tube in the midthoracic trachea. Left upper extremity central venous catheter tip at the cavoatrial junction. Bibasilar right greater than left atelectasis or consolidations slightly worsened. No pneumothorax or large effusion. Nonenlarged cardiac silhouette partially seen. Study limited by field of view.
[2021-05-26 08:06] LABS: Glucose,Whole Blood 178 mg/dL (75-99)
[2021-05-26] MEDS: NICOTINE 14MG/24HR PATCH TRANSDERM SCH (08:57)
[2021-05-26] MEDS: CHLORHEXIDINE GLUCONATE 15 ML CUP MUCOUS MEM SCH ×2 (08:57→19:46)
[2021-05-26] MEDS: PANTOPRAZOLE 40 MG/10 ML VIAL IVP SCH (08:57)
[2021-05-26] MEDS: SERTRALINE 50 MG TAB PO SCH (08:58)
[2021-05-26] MEDS: AMIODARONE 200 MG TAB PO SCH ×2 (08:58→19:46)
[2021-05-26] MEDS: FOLIC ACID 1 MG TAB PO SCH (08:58)
[2021-05-26] MEDS: APIXABAN 5 MG TAB PO SCH ×2 (08:58→19:46)
[2021-05-26] MEDS: PYRIDOXINE 50 MG TAB PO SCH (08:58)
[2021-05-26] MEDS: CYANOCOBALAMIN 500 MCG TAB PO SCH (09:00)
[2021-05-26] MEDS: METOPROLOL TARTRATE 50 MG TAB PO SCH ×2 (10:32→19:46)
--- NOTE | 2021-05-26 11:29 | P.PN ---
Subjective Progress Note Date: 05/26/21 Principal diagnosis: Respiratory failure. Reevaluated today on 05/18/2021, patient remains in the ICU, intubated and mechanically ventilated. However patient was noted to develop worsening chest x-ray and the right lower lobe collapse/atelectasis, and intermittently we have been increasing his FiO2 with worsening chest x-ray, hence I recommended bronchoscopy today and he underwent a bronchoscopy with bronchoalveolar lavage of the right middle lobe, right lower lobe, and a mucous plugs worse suctioned out of the airway especially on the right side. Procedure was well-tolerated, and the plan is to go down on his FiO2. He was initially on 50%, we had to increase his FiO2 up to 80%. He is now back on assist control mode of mechanical ventilation rate 30 tidal volume 430 FiO2 I 50% and PEEP of 8. ABG showed a pO2 of 76 pCO2 of 38 pH of 7.35. Peak airway pressure is 26 blood pressure is 23. Patient remains on multiple drips including norepinephrine, propofol, 45 mcg/kg/m, he is also on norepinephrine at 7 mcg/m, IV fluid at 75 mL per hour in the form of 0.9 normal saline. Patient continues to have persistent hematuria. Chest x-ray as noted above showed mostly right lower lobe collapse. And atelectasis. 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 Patient remains on IVIG. Patient is receiving enteral feeding in the form of vital HPI at 14 mL per hour. Considering the worsening of his pulmonary status today, patient was not felt to be ideal to consider weaning or to assess off sedation. Reevaluated today on 05/19/2021, patient remains in the ICU, intubated and mechanically ventilated. Patient is on assist control rate of 3 to tidal volume is 430 FiO2 of 65% and PEEP of 8. ABG showed a pO2 of 98 pCO2 of 50 pH of 7.26. Hence I increased the rate to 34, I have also cut down the FiO2 to 55%, PEEP at 8. And tidal volumes the same. Patient remains on propofol at 25 mcg/kg/m, he is also on norepinephrine at 0.06 mcg/kg/m. Amiodarone at 0.5, patient had atrial fibrillation with RVR yesterday, he is known to have history of chronic atrial fibrillation. He is also on heparin drip. Patient is on vital HPI at 24 mL per hour. Chest x-ray is showing significant improvement in his right lower lobe atelectasis/possible pneumonia. Remains on antibiotics, cultures from his bronchoscopy and BAL are pending. WBC count is 4.9 hemoglobin is 12.2. PTT is therapeutic at 58. Electrolytes are normal, renal profile is improving with a BUN of 33 creatinine 1.46. Blood sugar is 171. Reevaluated today on 05/20/2021, patient remains in the ICU, intubated and mechanically ventilated. Patient is on assist control rate of 34, tidal volume 430 FiO2 55% and a cardiac down to 50% today, he is on a PEEP of 8. ABG showed a pO2 of 126 pCO2 of 39 pH of 7.37. Patient is sedated, he is on propofol at 45 mcg/kg/m, he is on heparin for his atrial fibrillation he is on vital HPI at 24 mL/h/goal his IV fluid is at 75 mL per hour and I cut it down to KVO mostly because his chest x-ray is showing mild interstitial edema, and airspace disease bilaterally. Patient will be given a dose of Lasix 40 mg IV push. His WBC count is 8.6 hemoglobin is 11.1. Chest x-ray showed bibasilar atelectas is/infiltrates, and slight interstitial edema. Patient was awakened yesterday, and he was appropriate, followed simple instructions according to the nurse. His BAL from the right lower lobe and right middle lobe is showing gram-negative bacilli, and many polymorphonuclear leukocytes. Final identification is pending. Patient is empirically on Zosyn. Renal functioning is steadily improving, creatinine today is 1.20, this was as high as 1.55 only 4 days ago Progress note dated 05/21/2021. This is a 70-year-old male, seen in room 251. The patient was admitted on 05/12/2021, with hematuria and dehydration. The patient came to the intensive care unit on 05/17/2021, for respiratory failure, and was intubated on the same day. Patient was apparently found have Guillain-[place] syndrome. The patient underwent bronchoscopy on 05/18/2021. The bronchoscopy washings revealed ESBL Klebsiella. The patient is currently on meropenem. Zosyn was. The patient remains on the mechanical ventilator, with a volume assist control mode, rate 34, tidal volume 430, FiO2 50%, PEEP of 8. Arterial blood gases show a PaO2 of 62, pCO2 38, pH is 7.44. The patient's currently on saline at 25 mL an hour, propofol at 35 mcg/kg/m, and vital HP at 24 mL an hour, which is goal. White count 7.3, hemoglobin 11.3, hematocrit 34, platelet count 184,000. Sodium 141, potassium 3.3, chlorides 110, CO2 24, anion gap 7, BUN 34, creatinine 1.40. The patient chest x-ray showed diffuse interstitial changes and bibasilar patchy airspace disease. Progress note dated 05/22/2021. 70-year-old male, again seen in room 251. The patient was admitted with a diagnosis of hematuria and dehydration on 05/12/2021. The patient came to the intensive care unit on 05/17/2021. This was because of respiratory failure, and he was intubated on the same day. 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 For that, he received IVIG for 5 days. The patient remains on the mechanical ventilator. He did undergo bronchoscopy on 05/18/2021. The patient was found to have ESBL Klebsiella pneumoniae. The patient is currently on meropenem. Currently, ventilator settings include the volume assist control, rate of 34, t idal volume or 30, FiO2 50%, and PEEP of 8. Blood gases show pO2 of 66, pCO2 43, pH 7.43. The patient is on saline at 25 mL an hour, propofol at 50 mcg/kg/m, and vital high protein at 39 mL an hour, which is goal. White count 8.9, hemoglobin 11.8, hematocrit 36, platelet count 197,000. Sodium 142, potassium 4, chlorides 110, CO2 24, anion gap 8, BUN 34, creatinine 1.27. AST 80, ALT 55. Albumin 2.4. Chest x-ray shows bilateral lower lobe infiltrates and atelectasis. The chest x-ray is essentially unchanged. Progress note dated 05/23/2021. 70-year-old male, again seen in room 251. The patient was initially admitted with a diagnosis of hematuria and dehydration on May 12. He came to the intensive care unit on 05/17/2021. The patient was intubated on the same day for respiratory failure. The patient was discovered to have L-G-B syndrome. The patient received IVIG for 5 days. He remains on the mechanical ventilator. Yesterday, he had a brief daily interruption of sedation but did poorly. He needed to be re-sedated. Currently, he's on volume assist control, rate 34, t idal volume 430, FiO2 50%, and PEEP of 8. Blood gases show pO2 66, pCO2 44, and pH of 7.45. The patient's currently on propofol at 40 mcg/kg/m, saline at 25 mL an hour, and vital high protein at goal, which is 39 mL an hour. The patient was also discovered to have ESBL Klebsiella pneumoniae, and is currently on meropenem. Labs include a white count of 11.2, hemoglobin 12.5, hematocrit 38.1, platelet count 227,000. Sodium 146, potassium 4, chlorides 109, CO2 29, anion gap 8, BUN 37, and creatinine 1.21. AST is 102 with an ALT of 75. Chest x-ray shows bilateral perihilar and basilar infiltrates, and is essentially unchanged from the day prior. Progress note dated 05/24/2021. 70-year-old male, seen in room 251. The patient was initially admitted with a diagnosis of hematuria and dehydration on /. He came to the intensive care unit on 05/17/2021. The patient was intubated on the same day for respiratory failure. The patient was diagnosed by neurology to have L-G-B syndrome, and received IVIG for 5 days. He remains on the ventilator, but is very weak. We have done daily interruption of sedation but breathing trials have been very limited. The patient remains on the ventilator, on the volume assist control mode, rate 24, tidal volume or 30, FiO2 60% with a PEEP of 8. Blood gases show pO2 75, pCO2 46, pH is 7.43. The patient's on saline at 25 mL an hour, and nya l high protein at 39 mL an hour, which is goal. In addition, the patient remains on propofol at 25 mcg/kg/m. We will attempt another weaning trial with pressure support of 10 and CPAP of 5. Lab work includes a white count 10.3, hemoglobin 12.7, hematocrit 39.7, and a normal platelet count. Sodium 146, potassium 4.4, chlorides 109, CO2 28, anion gap 9, BUN 50, creatinine 1.31. Albumin is 2.5. Chest x-ray from today is unchanged. Progress note dated 05/25/2021. 70-year-old male, again seen in room 251. The patient was initially admitted with a diagnosis of hematuria, and dehydration, on O2/05. The patient came to the intensive care unit on 05/17/2021. The patient was intubated on May 17. The patient had respiratory failure, and was evaluated by neurology, and was found to have L-G-B syndrome. The patient did receive IVIG for 5 days. The patient remains on the mechanical ventilator, but has been very weak. He did have a spontaneous breathing trial yesterday, on pressure support of 10, and CPAP of 5, for 6 hours. Currently, he is on volume assist control, rate 34, ti anitha volume 430, FiO2 60%, and PEEP of 8. Arterial blood gases show pO2 of 68, pCO2 45, and pH is 7.46. The patient's on propofol at 25 mcg/kg/m, saline at 20 mL an hour, and vital high protein at 39 mL an hour. That is goal. The patient is currently on meropenem for ESBL Klebsiella, discovered on bronchoscopy on 05/18. White count 9.5, hemoglobin 12.4, hematocrit 38.5, platelet count 297,000. Sodium 147, potassium 4.3, chlorides 113, CO2 29, anion gap 5, BUN 58, creatinine 1.38. AST 109, with an ALT of 98. Albumin is 2.3. Chest x-ray is improved, with residual infiltrate in the right lower lobe. Progress note dated 05/26/2021. The patient is again seen in room 251. This is a 70-year-old male with history of respiratory failure. The patient was initially admitted with a diagnosis of hematuria, and dehydration on O2/05. The patient came to the intensive care unit on 05/17/2021. The patient was intubated on the same day. The patient was evaluated by neurology, and was found to have L-G-B syndrome. The patient did receive IVIG first 5 days. The patient has been on the ventilator since being intubated. Currently, he's on volume assist control, rate 34, tidal volume 430, FiO2 70%, and PEEP of 8. Blood gases show pO2 of 63, 47, and pH is 7.44. The patient remains on propofol at 25 mcg/kg/m, saline at 20 mL an hour, and vital high protein at 51 mL an hour, which is goal. Yesterday, the patient was on pressor support of 10 and CPAP of 5 for 5 hours. The patient will receive 1 additional day of meropenem for his ESBL Klebsiella, it was discovered on bronchoscopy washes, on 05/18. White count 12.6, he will been numb 0.4, hematocrit 35.6, platelet count 281,000. Sodium 149, potassium 4.2, chlorides 114, CO2 28, anion gap 7 BUN 67, and creatinine 1.23. Chest x-ray shows bilateral infiltrates, and consolidation, particularly at the bases, left greater than right. Objective - Vital Signs Vital signs: Vital Signs Temp 99.0 F 05/26/21 08:00 Pulse 101 H 05/26/21 10:00 Resp 34 H 05/26/21 10:00 BP 90/66 05/26/21 10:00 Pulse Ox 92 L 05/26/21 10:00 Intake & Output 05/25/21 05/26/21 05/26/21 18:59 06:59 18:59 Intake Total 719.172 6178.552 268.870 Output Total 855 1130 205 Balance 135.000 -28.448 63.870 Weight 89.9 kg 89.9 kg Intake: IV 260 260 52 Sodium Chloride 0.9% 1, 260 260 40 000 ml @ 25 mls/hr IV . Q24H [facility] Rx#:[id number] pressure bag .9 12 Intake, IV Titration 100.000 88.552 216.870 Amount Meropenem 2 gm In Sodium 100 Chloride 0.9% 100 ml @ 33 .3 mls/hr IVPB Q8HR [facility] Rx#:[id number] propofoL 1,000 mg In 100.000 88.552 116.870 Empty Bag 1 bag @ Titrate IV .Q0M [facility] Rx#: [id number] Tube Feeding 540 663 Other 90 90 Output: Urine 855 1130 205 Other: Voiding Method Indwelling Catheter Indwelling Catheter Indwelling Catheter ABP, PAP, CO, CI - Last Documented Arterial Blood Pressure 102/58 - Exam No acute distress, intubated, and mechanically ventilated, sedated, with an orally placed endotracheal tube. HEENT examination is grossly unremarkable. Neck supple. Full range of motion. No adenopathy thyromegaly or neck vein distention. Cardiovascular examination reveals regular rhythm rate. S1-S2 normal. No S3 or S4. No discernible murmur noted. Heart sounds are distant. Heart rate 97 bpm. Lungs reveal bilateral coarse rhonchi. No wheezes. No crackles. Breath sounds equal bilaterally. Saturations are 92 % Abdomen soft bowel sounds are heard. No masses or tenderness. Extremities are intact. No cyanosis or clubbing. Mild edema is noted. Skin is without rash or lesion. Neurologic examination is difficult to assess as the patient's currently sedated with propofol. - Labs CBC & Chem 7: 05/26/21 04:00 05/26/21 04:00 Labs: Abnormal Lab Results - Last 24 Hours (Table) 05/25/21 05/25/21 05/26/21 Range/Units 15:48 18:27 00:18 WBC (3.8-10.6) k/uL RBC (4.30-5.90) m/uL Hgb (13.0-17.5) gm/dL Hct (39.0-53.0) % PT (9.0-12.0) sec INR (<1.2) ABG pCO2 (35-45) mmHg ABG pO2 (83-108) mmHg ABG HCO3 (21-25) mmol/L ABG Total CO2 (19-24) mmol/L ABG O2 Saturation (94-97) % Sodium (137-145) mmol/L Chloride (98-107) mmol/L BUN (9-20) mg/dL Glucose (74-99) mg/dL POC Glucose (mg/dL) 172 H 253 H 299 H (75-99) mg/dL AST (17-59) U/L ALT (4-49) U/L Albumin (3.5-5.0) g/dL 05/26/21 05/26/21 05/26/21 Range/Units 04:00 04:00 04:00 WBC 12.6 H (3.8-10.6) k/uL RBC 3.70 L (4.30-5.90) m/uL Hgb 11.4 L (13.0-17.5) gm/dL Hct 35.6 L (39.0-53.0) % PT 12.6 H (9.0-12.0) sec INR 1.2 H (<1.2) ABG pCO2 (35-45) mmHg ABG pO2 (83-108) mmHg ABG HCO3 (21-25) mmol/L ABG Total CO2 (19-24) mmol/L ABG O2 Saturation (94-97) % Sodium 149 H (137-145) mmol/L Chloride 114 H (98-107) mmol/L BUN 67 H (9-20) mg/dL Glucose 212 H (74-99) mg/dL POC Glucose (mg/dL) (75-99) mg/dL AST 104 H (17-59) U/L ALT 98 H (4-49) U/L Albumin 2.4 L (3.5-5.0) g/dL 05/26/21 05/26/21 05/26/21 Range/Units 04:03 05:30 08:04 WBC (3.8-10.6) k/uL RBC (4.30-5.90) m/uL Hgb (13.0-17.5) gm/dL Hct (39.0-53.0) % PT (9.0-12.0) sec INR (<1.2) ABG pCO2 47 H (35-45) mmHg ABG pO2 63 L (83-108) mmHg ABG HCO3 32 H (21-25) mmol/L ABG Total CO2 33 H (19-24) mmol/L ABG O2 Saturation 91.3 L (94-97) % Sodium (137-145) mmol/L Chloride (98-107) mmol/L BUN (9-20) mg/dL Glucose (74-99) mg/dL POC Glucose (mg/dL) 186 H 178 H (75-99) mg/dL AST (17-59) U/L ALT (4-49) U/L Albumin (3.5-5.0) g/dL Microbiology - Last 24 Hours (Table) 05/18/21 11:20 Fungal Culture - Preliminary Bronchial Washings - Right Allyssa albicans Assessment and Plan Assessment: Acute hypoxemic respiratory failure secondary to Vbljdm-Bcleydua-Tycqy (L-G-B) syndrome, status post intubation and mechanical ventilation, on 05/17/2021 Progressive/ascending muscle weakness with sensory loss and areflexia, secondary to L-G-B syndrome, status post 5 days of IVIG. Right lower lobe pneumonia secondary to ESBL Klebsiella, currently on meropenem. Status post bronchoscopy, 05/18/2021. Hematuria, with possible bladder malignancy, currently being evaluated by urology. History of chronic atrial fibrillation. [id number] history of tobacco use. Benign essential hypertension. Type 2 diabetes mellitus. Chronic renal insufficiency. Plan: Plan dated 05/21/2021. The patient remains on the mechanical ventilator. He is not yet ready to be weaned from mechanical ventilation. The patient continues on IVIG as per neurology. The patient continues on GI and DVT prophylaxis. The bronchial washing showed evidence of ESBL Klebsiella, and the antibiotics were changed from Zosyn to meropenem. We will continue tube feedings. Additional recommendations and suggestions are forthcoming. Prognosis is guarded. We will continue to follow and make recommendations where appropriate. Plan dated 05/22/2021. The patient remains on the mechanical ventilator. We will attempt a daily interruption of sedation, and a spontaneous breathing trial, with a pressure support of 10 and CPAP of 5. The patient did receive 5 days of IVIG. The patient's currently on meropenem for his Klebsiella found in the bronchoscopy wash, on May 18. The patient remains on propofol at 50 mcg/kg/m. He is getting nutrition at goal. Overall prognosis is guarded. We'll continue to follow make recommendations where appropriate. Plan dated 05/23/2021. The patient remains on the ventilator. The patient had a brief daily interruption of sedation yesterday, but required re-sedation. The patient appears not to be ready for significant weaning and extubation. The patient did receive 5 days of IVIG. The patient is currently on meropenem for Klebsiella pneumoniae, ESBL, found on bronchoscopy washings from May 18. The patient remains on propofol at 40 mcg/kg/m. The patient is receiving tube feedings. Additional recommendations and suggestions are forthcoming. Prognosis is guarded. We will continue to follow make recommendations where appropriate. Plan dated 05/24/2021. The patient remains on the ventilator. We do do a daily interruption's of sedation with spontaneous breathing trials, but the patient is profoundly weak, and only last minutes on the pressure support and CPAP. We will continue to try. He is currently on meropenem for ESBL Klebsiella pneumoniae found in the bronchoscopy washings from 05/18. The patient remains on propofol, and is been cut back to 25 mcg/kg/m. The patient is receiving tube feedings. He is at goal. Additional recommendations and suggestions are forthcoming. Prognosis is guarded. Plan dated 05/25/2021. The patient remains on ventilator, did have a successful weaning trial yesterday. We will again attempt a daily interruption of sedation and a spontaneous breathing trial. The patient will be on PSV 10, and CPAP of 5. Clinically, the patient appears to be a bit more awake. The patient was intubated on O2/10. If there is no progression, over the weekend, or early next week, we will opt for a tracheostomy tube. Blood gases are reasonable. The patient is being nourished. The patient did receive IVIG for 5 days. Labs, x- rays, and medications are all reviewed. Prognosis is guarded. We will continue to follow the patient and make recommendations where appropriate. Plan dated 05/26/2021. Currently, the patient will have another daily interruption of sedation and spontaneous breathing trial. He'll be placed on PSV 10, and CPAP of 5. Yesterday, he went for 5 hours. The patient still is profoundly weak. We'll hoping that he improves in the next day or 2. The patient remains on propofol for the current time. He has 1 more day meropenem. Blood gases are reasonable. His exam is unchanged. He did receive 5 days of IVIG. Should the patient not make any additional improvement, some consideration should be given a tracheostomy and PEG tube placement. Prognosis is guarded. We will continue to follow make recommendations where appropriate. Time with Patient: Greater than 30
[2021-05-26 11:39] LABS: Glucose,Whole Blood 220 mg/dL (75-99)
[2021-05-26] MEDS: DEXTROSE 5% IN WATER 1,000 ML IV SCH (12:20)
--- NOTE | 2021-05-26 13:02 | P.PN ---
Subjective From records Patient is a 70-year-old male with a known history of hypertension, hyperlipidemia, diabetes type 2 insulin-dependent, history of NC status post cardiac catheterization, currently everyday smoker and BPH presented to ER with complaints of left hip pain and also left shoulder pain. Pain gets worse with movement. Patient denies any recent falls. Patient initially presented to ER and had CT abdominal pelvis which showed moderate bilateral hydronephrosis and hydroureter. This could relate to reflux. Appearance not changed compared with exam. Dilated gallbladder increased compared to holograms history of cholecystitis. There are few calcified gallstones. Pancreatic calcifications appear unchanged and consistent with chronic pancreatitis. Sigmoid diverticulosis hypertrophic changes in the urinary bladder similar to old exam. Nodular density at the base of the bladder could be enlarged prostate or bladder mass. Unchanged. Enlarged prostate. There is a 12 mm stellate nodule in the subpleural lateral right lower lobe that appears to be new compared to old exam. Follow-up recommended. X-ray of the shoulder no acute fracture or dislocation. Moderate narrowing and mild to moderate spurring at the acromioclavicular joint is more prominent from prior. Hip x-ray showed mild to moderate degenerative joint disease. Laboratory data showed sodium 135 potassium 4.3 chloride 102 bicarb is 21 BUN 20 and creatinine 1.47 blood sugar is 267 Urinalysis showed large blood nitrate negative and large leukocyte esterase with elevated RBCs and WBCs. WBC 11.5 hemoglobin 14.3 and platelets 277. Coronavirus PCR not detected. 05/13/2021 Patient is currently lying in the bed. Awake alert and still complaining of left lower abdominal pain and hip pain. X-ray of the hip showed mild degenerative changes without acute fracture or dislocation. Overlying soft tissue appears unremarkable. Vascular calcifications noted. Otherwise no acute process identified. Patient admitted on pain management. Urology has seen the patient and recommend outpatient follow-up for cystoscopy. Resume Eliquis at this time. PT OT consult and continue with pain management. Subjective: resuming the care from above 05/14/2021 This is a pleasant 70 years old male who presents on 05/12 for limb pain and inability to walk. Patient complains from weakness in all 4 extremities but more pronounced in the left leg as he states he barely can lift it off the bed. Also he has decreased sensation when examined his left leg. However he complains also to some degree of weakness from all 4 extremities motor he could not move his both arms above his head however passively I could move them up and patient had good tone in his muscles and he could hold them up above his head but then he will drop down once released Patient denies any abdominal pain today and he states that his hematuria has been cleared today back to yellow urine. Patient also feels generally weak and he might need to go to rehab. Patient hematuria problem is not in the room and he has his urologist seen prior to hospitalization and he is supposed to get stress test with food trades assistants this, the Friday as part of preop evaluation. Also patient states that he was on baby aspirin at home but he ran out of it about one week prior to hospitalization. Also he is on Eliquis Patient told me that he has A. fib and that's why he takes Eliquis at home and that has been taking Eliquis and aspirated one week ago Subjective: Resuming the care of the patient again starting to 05/18/2021, after Dr. Jefferson. Patient currently in the ICU intubated and sedated. 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 With pulmonary/critical care team following him closely and help with vent management, today his FiO2 increased 50% up to 8% after pO2 was low 76. Rest of ABG was normal. He remains on PEEP of 8. Also patient is receiving IVIG. Today's the third dose. His lumbar puncture was consistent with his Gullian Juan syndrome with elevated opening up pressure at 30 cm of water . Also RBCs high 118, decreased protein 148, glucose is 104. Nucleated cells/WBC 1 only. Also patient developing low-grade fever and chest x-ray showing marked lower lobe infiltrate and his antibiotics was adjustment today ceftriaxone and to Zosyn. Patient remains critically ill. 05/19/2021 Patient re also he is developing hypotension requiring Levophed however he needs this dose today at 0.06 g per KG per minute. guerita in the ICU in critical condition intubated and sedated with pulmonary/critical care team are following him closely. Patient is developing respiratory failure secondary to his Gullina- Berri syndrome. And the neurology on the case and he is receiving IVIG He is a known case of A. fib on metoprolol and Eliquis, which was changed to he rabia drip because he needed lumbar puncture. Metoprolol was held once he needed Levophed , so today he developed A. fib and RVR which is currently controlled with amiodarone 400 mg twice a day with food trades assistants consulted and recommended echocardiogram. Also patient is on Zosyn for right basal versus bilateral basal pneumonia, also shown on today's chest x-ray. Remains intubated with FiO2 lower today to 55%, remains on PEEP of 8 like yesterday. He has no fever today. Leukocytosis slightly up 12.9, creatinine is stable at 1.4. 05/20/2021 Patient presents with weakness in all extremities motor on the left lower leg and decreased sensation, moved to the ICU on ) monitoring got deteriorated overnight and he had to be intubated because of worsening respiratory status. Neurology was already on the case and were following him closely. patient currently kept monitored in the ICU with pulmonary/critical care team helping with vent management. Also he is receiving IVIG under the kindness of neurology team, distal intubated and sedated which limits his examination. His leukocytosis improved to 8.6 today. Creatinine is stable at 1.4. He had no fever since yesterday. PEEP remains at 8, FiO2 remains at 50%, he is tachypneic. Sputum culture chronic gram-negative bacilli remains on Zosyn empirically pending final results of the culture. Is also an heparin drip just to liquids per food trades assistants. Also IVIG. Also Pepcid. Also his A. fib controlled with amiodarone 400 mg on the top of home dose of metoprolol 50 mg. Subjective: Patient cannot provide information Resuming the care of the patient on 05/23/2021 Patient underwent sedation trial today while he is on propofol with no success since yesterday. patient remains intubated and sedated secondary to his hypoxia and respiratory failure, with pulmonary/critical care team following him closely and help with vent management. He is status post 5 days of IVIG her pulmonary team following him closely as well . He's also on meropenem for ESBL Klebsiella obtained from his bronchoscopy lavage done on 05/18. He still tachypneic and recurrent low-grade fever over 100.4. He has mild leukocytosis of 11.2. Liver enzymes mildly elevated and chest x-ray shows stable perihilar and basal infiltrates. 05/24/2021 Patient is with Gullian Berri syndrome and respiratory failure requiring intubation and mechanical ventilation complicated by ESBL Klebsiella pneumonia on meropenem. He finished his 5 days of IVIG and currently undergoing sedation interruption and holiday by holding his propofol. The meantime he remains on heparin drip for which is wished to Eliquis. Also he is on insulin 20 units at sugar controlled WBC is 10.3, creatinine at baseline 1.3. He has fever of 100.2. FiO2 is 50% and he is tachypneic. 05/25/2021 Patient remains intubated and sedated in the ICU with pulmonary/critical care team following him closely. And help with vent management. Patient undergoing sedation holiday while he is on a propofol. He finished treatment for IVIG and currently being monitored closely. He is also on meropenem for Klebsiella pneumonia. He is still tachycardic, tachypneic and building up low-grade temperature at 100 today. Fungal cultures positive for tawana but chest x-ray showing improving right lo wer lobe infiltrate. His creatinine is 1.38, sodium 147. 05/26/2021 Remains in the ICU with need for mechanical intubation with pulmonary/critical care team help with vent management. Total has fever of 100 and tachypneic and tachycardic. Leukocytosis of 12.6, creatinine 1.2, sodium went up to 149 and patient was placed on D5W. Glucose controlled around 200 while he is on Levemir 23 units at bedtime. Chest x-ray showed slight worsening right more than left. Patient remains on meropenem, Eliquis Objective - Vital Signs Vital signs: Vital Signs Temp 99.0 F 05/26/21 08:00 Pulse 92 05/26/21 09:00 Resp 35 H 05/26/21 09:00 BP 96/70 05/26/21 09:00 Pulse Ox 93 L 05/26/21 09:00 Intake & Output 05/25/21 05/26/21 05/26/21 18:59 06:59 18:59 Intake Total 099.930 1983.552 247.294 Output Total 855 1130 205 Balance 135.000 -28.448 42.294 Weight 89.9 kg 89.9 kg Intake: IV 260 260 52 Sodium Chloride 0.9% 1, 260 260 40 000 ml @ 25 mls/hr IV . Q24H [facility] Rx#:[id number] pressure bag .9 12 Intake, IV Titration 100.000 88.552 195.294 Amount Meropenem 2 gm In Sodium 100 Chloride 0.9% 100 ml @ 33 .3 mls/hr IVPB Q8HR [facility] Rx#:[id number] propofoL 1,000 mg In 100.000 88.552 95.294 Empty Bag 1 bag @ Titrate IV .Q0M [facility] Rx#: [id number] Tube Feeding 540 663 Other 90 90 Output: Urine 855 1130 205 Other: Voiding Method Indwelling Catheter Indwelling Catheter Indwelling Catheter ABP, PAP, CO, CI - Last Documented Arterial Blood Pressure 102/58 - Exam -GENERAL: The patient is intubated and sedated HEENT: Pupils are round and equally reacting to light. EOMI. No scleral icterus. No conjunctival pallor. Normocephalic, atraumatic. No pharyngeal erythema. No thyromegaly. CARDIOVASCULAR: S1 and S2 present. No murmurs, rubs, or gallops. PULMONARY: Chest is clear to auscultation, no wheezing or crackles. ABDOMEN: Soft, nontender, nondistended, normoactive bowel sounds. No palpable organomegaly. MUSCULOSKELETAL: No joint swelling or deformity. EXTREMITIES: No cyanosis, clubbing, or pedal edema. -NEUROLOGICAL: Examination is limited by patient intubation. Pupils are equal and reactive to light. No facial asymmetry. Absent reflexes SKIN: No rashes. no petechiae. - Labs CBC & Chem 7: 05/26/21 04:00 05/26/21 04:00 Labs: Abnormal Lab Results - Last 24 Hours (Table) 05/25/21 05/25/21 05/25/21 Range/Units 10:57 15:48 18:27 WBC (3.8-10.6) k/uL RBC (4.30-5.90) m/uL Hgb (13.0-17.5) gm/dL Hct (39.0-53.0) % PT (9.0-12.0) sec INR (<1.2) ABG pCO2 (35-45) mmHg ABG pO2 (83-108) mmHg ABG HCO3 (21-25) mmol/L ABG Total CO2 (19-24) mmol/L ABG O2 Saturation (94-97) % Sodium (137-145) mmol/L Chloride (98-107) mmol/L BUN (9-20) mg/dL Glucose (74-99) mg/dL POC Glucose (mg/dL) 176 H 172 H 253 H (75-99) mg/dL AST (17-59) U/L ALT (4-49) U/L Albumin (3.5-5.0) g/dL 05/26/21 05/26/21 05/26/21 Range/Units 00:18 04:00 04:00 WBC (3.8-10.6) k/uL RBC (4.30-5.90) m/uL Hgb (13.0-17.5) gm/dL Hct (39.0-53.0) % PT 12.6 H (9.0-12.0) sec INR 1.2 H (<1.2) ABG pCO2 (35-45) mmHg ABG pO2 (83-108) mmHg ABG HCO3 (21-25) mmol/L ABG Total CO2 (19-24) mmol/L ABG O2 Saturation (94-97) % Sodium 149 H (137-145) mmol/L Chloride 114 H (98-107) mmol/L BUN 67 H (9-20) mg/dL Glucose 212 H (74-99) mg/dL POC Glucose (mg/dL) 299 H (75-99) mg/dL AST 104 H (17-59) U/L ALT 98 H (4-49) U/L Albumin 2.4 L (3.5-5.0) g/dL 05/26/21 05/26/21 05/26/21 Range/Units 04:00 04:03 05:30 WBC 12.6 H (3.8-10.6) k/uL RBC 3.70 L (4.30-5.90) m/uL Hgb 11.4 L (13.0-17.5) gm/dL Hct 35.6 L (39.0-53.0) % PT (9.0-12.0) sec INR (<1.2) ABG pCO2 47 H (35-45) mmHg ABG pO2 63 L (83-108) mmHg ABG HCO3 32 H (21-25) mmol/L ABG Total CO2 33 H (19-24) mmol/L ABG O2 Saturation 91.3 L (94-97) % Sodium (137-145) mmol/L Chloride (98-107) mmol/L BUN (9-20) mg/dL Glucose (74-99) mg/dL POC Glucose (mg/dL) 186 H (75-99) mg/dL AST (17-59) U/L ALT (4-49) U/L Albumin (3.5-5.0) g/dL 05/26/21 Range/Units 08:04 WBC (3.8-10.6) k/uL RBC (4.30-5.90) m/uL Hgb (13.0-17.5) gm/dL Hct (39.0-53.0) % PT (9.0-12.0) sec INR (<1.2) ABG pCO2 (35-45) mmHg ABG pO2 (83-108) mmHg ABG HCO3 (21-25) mmol/L ABG Total CO2 (19-24) mmol/L ABG O2 Saturation (94-97) % Sodium (137-145) mmol/L Chloride (98-107) mmol/L BUN (9-20) mg/dL Glucose (74-99) mg/dL POC Glucose (mg/dL) 178 H (75-99) mg/dL AST (17-59) U/L ALT (4-49) U/L Albumin (3.5-5.0) g/dL Microbiology - Last 24 Hours (Table) 05/18/21 11:20 Fungal Culture - Preliminary Bronchial Washings - Right Tawana albicans Assessment and Plan Assessment: 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 Secondary to ESBL Klebsiella Bladder mass versus enlarged prostate. Needs cystoscopy as an outpatient Hypernatremia Chronic A. fib and RVR Bilateral moderate hydronephrosis Hematuria resolved now. Acute urinary tract infection. on antibiotic Hyperglycemia with uncontrolled diabetes type 2 insulin-dependent Hypomagnesemia Hypovolemic hyponatremia Acute kidney injury likely prerenal Chronic kidney disease stage III Paroxysmal atrial fibrillation on anticoagulation with Eliquis Hypertension Hyperlipidemia History of NC status post cardiac catheterization. Plan: This is a pleasant 70 years old male who presents with hematuria and generalized weakness and generalized pain. Left leg weakness and decreased sensation. Continue mechanical ventilation with the help of the pulmonary/critical care team will follow him closely. Continue with sedation trial for pulmonary team status post 5 days of IVIG as per neurology team will follow him closely as well Continue Eliquis due to his history of A. fib. Continue with amiodarone and metoprolol. Cardiology on the case Continue with meropenem Continue with D5W and monitor sodium level Urology evaluated the patient and recommended cystoscopy and possible TURP as an outpatient and he verbalized understanding and acceptance. The risk of cancer explained Prior to intubation Labs and medication were reviewed.. Continue same treatment. Continue with symptomatic treatment. Resume home medication. Monitor lytes and vitals. DVT and GI prophylaxis. Further recommendations as per clinical course of the patient DVT prophylaxis: On Eliquis GI Prophylaxis: Pepcid PT/OT: deferred Prognosis is guarded
[2021-05-26 16:04] LABS: Glucose,Whole Blood 119 mg/dL (75-99)
[2021-05-26 19:38] LABS: Glucose,Whole Blood 180 mg/dL (75-99)
[2021-05-26] MEDS: INSULIN DETEMIR (LEVEMIR) 100 UNIT/ML SYR SQ SCH (19:45)
[2021-05-26] MEDS: ATORVASTATIN 80 MG TAB PO SCH (19:46)
[2021-05-26 23:35] LABS: Glucose,Whole Blood 186 mg/dL (75-99)
[2021-05-26] MEDS: HYDROmorphone 1 MG/ML 1 ML SYRINGE IVP PRN (23:44)
[2021-05-27] MEDS: IPRATROPIUM-ALBUTEROL 3 ML NEB INHALATION SCH ×7 (01:26→23:48)
[2021-05-27 03:54] LABS: Glucose,Whole Blood 219 mg/dL (75-99)
[2021-05-27] MEDS: INSULIN ASPART (NovoLOG) 100 UNIT/ML VIAL SQ SCH ×5 (04:05→20:51)
[2021-05-27 06:09] LABS: ABG Base Excess 8.3 mmol/L; ABG HCO3 33 mmol/L (21-25); ABG Oxygen Saturation 91.5 % (94-97); ABG PCO2 48 mmHg (35-45); ABG PH 7.44 (7.35-7.45); ABG PO2 62 mmHg (83-108); ABG TCO2 34 mmol/L (19-24); Allen Test Performed? Yes
[2021-05-27 06:33] LABS: HGB 12.8 gm/dL (13.0-17.5); Hypochromasia Slight; MCH 30.8 pg (25.0-35.0); MCHC 31.3 g/dL (31.0-37.0); MCV 98.7 fL (80.0-100.0); Mean Platelet Volume 9.6; Platelet Count 319 k/uL (150-450); RBC 4.16 m/uL (4.30-5.90); RDW 13.6 % (11.5-15.5); WBC 16.5 k/uL (3.8-10.6)
[2021-05-27 06:48] LABS: Potassium 4.2 mmol/L (3.5-5.1)
[2021-05-27] MEDS: DEXTROSE 5% IN WATER 1,000 ML IV SCH (07:26)
[2021-05-27 07:42] LABS: Glucose,Whole Blood 212 mg/dL (75-99)
[2021-05-27 07:44] LABS: Eosinophils # (M) 0.33 k/uL (0-0.7); Lymphocytes # (M) 0.83 k/uL (1.0-4.8); Monocytes # (M) 0.17 k/uL (0-1.0); Neutrophils # (M) 15.18 k/uL (1.3-7.7); Neutrophils % (M) 92 %; Nucleated Red Blood Cells 0 /100 WBC (0-0); Total Cells Counted 100
[2021-05-27] MEDS: PANTOPRAZOLE 40 MG/10 ML VIAL IVP SCH (08:09)
[2021-05-27] MEDS: AMIODARONE 200 MG TAB PO SCH ×2 (08:10→20:51)
[2021-05-27] MEDS: CHLORHEXIDINE GLUCONATE 15 ML CUP MUCOUS MEM SCH ×2 (08:10→20:50)
[2021-05-27] MEDS: APIXABAN 5 MG TAB PO SCH ×2 (08:10→20:51)
[2021-05-27] MEDS: CYANOCOBALAMIN 500 MCG TAB PO SCH (08:10)
[2021-05-27] MEDS: METOPROLOL TARTRATE 50 MG TAB PO SCH ×2 (08:10→20:51)
[2021-05-27] MEDS: FOLIC ACID 1 MG TAB PO SCH (08:10)
[2021-05-27] MEDS: NICOTINE 14MG/24HR PATCH TRANSDERM SCH (08:10)
[2021-05-27] MEDS: SERTRALINE 50 MG TAB PO SCH (08:11)
[2021-05-27] MEDS: PYRIDOXINE 50 MG TAB PO SCH (08:11)
--- NOTE | 2021-05-27 08:46 | XR ---
EXAMINATION TYPE: XR chest 1V portable DATE OF EXAM: 05/27/2021 Comparison: 05/26/2021 Clinical History: 70-year-old male shortness of breath Findings: ET tube satisfactory. NG tube courses below the diaphragm. Left subclavian CVC tip lower SVC. On upri ght imaging, there is prominent right lower lung opacity. Direct comparison difficult due to previous supine image. Interstitial changes and hyperinflation are similar. Impression: Suspect underlying moderate right pleural effusion with adjacent atelectasis and/or consolidation. Ba ckground COPD and similar mild interstitial changes.
--- NOTE | 2021-05-27 11:03 | P.PN ---
Subjective Progress Note Date: 05/27/21 Principal diagnosis: Respiratory failure. Reevaluated today on 05/18/2021, patient remains in the ICU, intubated and mechanically ventilated. However patient was noted to develop worsening chest x-ray and the right lower lobe collapse/atelectasis, and intermittently we have been increasing his FiO2 with worsening chest x-ray, hence I recommended bronchoscopy today and he underwent a bronchoscopy with bronchoalveolar lavage of the right middle lobe, right lower lobe, and a mucous plugs worse suctioned out of the airway especially on the right side. Procedure was well-tolerated, and the plan is to go down on his FiO2. He was initially on 50%, we had to increase his FiO2 up to 80%. He is now back on assist control mode of mechanical ventilation rate 30 tidal volume 430 FiO2 I 50% and PEEP of 8. ABG showed a pO2 of 76 pCO2 of 38 pH of 7.35. Peak airway pressure is 26 blood pressure is 23. Patient remains on multiple drips including norepinephrine, propofol, 45 mcg/kg/m, he is also on norepinephrine at 7 mcg/m, IV fluid at 75 mL per hour in the form of 0.9 normal saline. Patient continues to have persistent hematuria. Chest x-ray as noted above showed mostly right lower lobe collapse. And atelectasis. 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 Patient remains on IVIG. Patient is receiving enteral feeding in the form of vital HPI at 14 mL per hour. Considering the worsening of his pulmonary status today, patient was not felt to be ideal to consider weaning or to assess off sedation. Reevaluated today on 05/19/2021, patient remains in the ICU, intubated and mechanically ventilated. Patient is on assist control rate of 3 to tidal volume is 430 FiO2 of 65% and PEEP of 8. ABG showed a pO2 of 98 pCO2 of 50 pH of 7.26. Hence I increased the rate to 34, I have also cut down the FiO2 to 55%, PEEP at 8. And tidal volumes the same. Patient remains on propofol at 25 mcg/kg/m, he is also on norepinephrine at 0.06 mcg/kg/m. Amiodarone at 0.5, patient had atrial fibrillation with RVR yesterday, he is known to have history of chronic atrial fibrillation. He is also on heparin drip. Patient is on vital HPI at 24 mL per hour. Chest x-ray is showing significant improvement in his right lower lobe atelectasis/possible pneumonia. Remains on antibiotics, cultures from his bronchoscopy and BAL are pending. WBC count is 4.9 hemoglobin is 12.2. PTT is therapeutic at 58. Electrolytes are normal, renal profile is improving with a BUN of 33 creatinine 1.46. Blood sugar is 171. Reevaluated today on 05/20/2021, patient remains in the ICU, intubated and mechanically ventilated. Patient is on assist control rate of 34, tidal volume 430 FiO2 55% and a cardiac down to 50% today, he is on a PEEP of 8. ABG showed a pO2 of 126 pCO2 of 39 pH of 7.37. Patient is sedated, he is on propofol at 45 mcg/kg/m, he is on heparin for his atrial fibrillation he is on vital HPI at 24 mL/h/goal his IV fluid is at 75 mL per hour and I cut it down to KVO mostly because his chest x-ray is showing mild interstitial edema, and airspace disease bilaterally. Patient will be given a dose of Lasix 40 mg IV push. His WBC count is 8.6 hemoglobin is 11.1. Chest x-ray showed bibasilar atelectas is/infiltrates, and slight interstitial edema. Patient was awakened yesterday, and he was appropriate, followed simple instructions according to the nurse. His BAL from the right lower lobe and right middle lobe is showing gram-negative bacilli, and many polymorphonuclear leukocytes. Final identification is pending. Patient is empirically on Zosyn. Renal functioning is steadily improving, creatinine today is 1.20, this was as high as 1.55 only 4 days ago Progress note dated 05/21/2021. This is a 70-year-old male, seen in room 251. The patient was admitted on 05/12/2021, with hematuria and dehydration. The patient came to the intensive care unit on 05/17/2021, for respiratory failure, and was intubated on the same day. Patient was apparently found have Guillain-Beaumont syndrome. The patient underwent bronchoscopy on 05/18/2021. The bronchoscopy washings revealed ESBL Klebsiella. The patient is currently on meropenem. Zosyn was. The patient remains on the mechanical ventilator, with a volume assist control mode, rate 34, tidal volume 430, FiO2 50%, PEEP of 8. Arterial blood gases show a PaO2 of 62, pCO2 38, pH is 7.44. The patient's currently on saline at 25 mL an hour, propofol at 35 mcg/kg/m, and vital HP at 24 mL an hour, which is goal. White count 7.3, hemoglobin 11.3, hematocrit 34, platelet count 184,000. Sodium 141, potassium 3.3, chlorides 110, CO2 24, anion gap 7, BUN 34, creatinine 1.40. The patient chest x-ray showed diffuse interstitial changes and bibasilar patchy airspace disease. Progress note dated 05/22/2021. 70-year-old male, again seen in room 251. The patient was admitted with a diagnosis of hematuria and dehydration on 05/12/2021. The patient came to the intensive care unit on 05/17/2021. This was because of respiratory failure, and he was intubated on the same day. 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 For that, he received IVIG for 5 days. The patient remains on the mechanical ventilator. He did undergo bronchoscopy on 05/18/2021. The patient was found to have ESBL Klebsiella pneumoniae. The patient is currently on meropenem. Currently, ventilator settings include the volume assist control, rate of 34, t idal volume or 30, FiO2 50%, and PEEP of 8. Blood gases show pO2 of 66, pCO2 43, pH 7.43. The patient is on saline at 25 mL an hour, propofol at 50 mcg/kg/m, and vital high protein at 39 mL an hour, which is goal. White count 8.9, hemoglobin 11.8, hematocrit 36, platelet count 197,000. Sodium 142, potassium 4, chlorides 110, CO2 24, anion gap 8, BUN 34, creatinine 1.27. AST 80, ALT 55. Albumin 2.4. Chest x-ray shows bilateral lower lobe infiltrates and atelectasis. The chest x-ray is essentially unchanged. Progress note dated 05/23/2021. 70-year-old male, again seen in room 251. The patient was initially admitted with a diagnosis of hematuria and dehydration on May 12. He came to the intensive care unit on 05/17/2021. The patient was intubated on the same day for respiratory failure. The patient was discovered to have L-G-B syndrome. The patient received IVIG for 5 days. He remains on the mechanical ventilator. Yesterday, he had a brief daily interruption of sedation but did poorly. He needed to be re-sedated. Currently, he's on volume assist control, rate 34, t idal volume 430, FiO2 50%, and PEEP of 8. Blood gases show pO2 66, pCO2 44, and pH of 7.45. The patient's currently on propofol at 40 mcg/kg/m, saline at 25 mL an hour, and vital high protein at goal, which is 39 mL an hour. The patient was also discovered to have ESBL Klebsiella pneumoniae, and is currently on meropenem. Labs include a white count of 11.2, hemoglobin 12.5, hematocrit 38.1, platelet count 227,000. Sodium 146, potassium 4, chlorides 109, CO2 29, anion gap 8, BUN 37, and creatinine 1.21. AST is 102 with an ALT of 75. Chest x-ray shows bilateral perihilar and basilar infiltrates, and is essentially unchanged from the day prior. Progress note dated 05/24/2021. 70-year-old male, seen in room 251. The patient was initially admitted with a diagnosis of hematuria and dehydration on /. He came to the intensive care unit on 05/17/2021. The patient was intubated on the same day for respiratory failure. The patient was diagnosed by neurology to have L-G-B syndrome, and received IVIG for 5 days. He remains on the ventilator, but is very weak. We have done daily interruption of sedation but breathing trials have been very limited. The patient remains on the ventilator, on the volume assist control mode, rate 24, tidal volume or 30, FiO2 60% with a PEEP of 8. Blood gases show pO2 75, pCO2 46, pH is 7.43. The patient's on saline at 25 mL an hour, and nya l high protein at 39 mL an hour, which is goal. In addition, the patient remains on propofol at 25 mcg/kg/m. We will attempt another weaning trial with pressure support of 10 and CPAP of 5. Lab work includes a white count 10.3, hemoglobin 12.7, hematocrit 39.7, and a normal platelet count. Sodium 146, potassium 4.4, chlorides 109, CO2 28, anion gap 9, BUN 50, creatinine 1.31. Albumin is 2.5. Chest x-ray from today is unchanged. Progress note dated 05/25/2021. 70-year-old male, again seen in room 251. The patient was initially admitted with a diagnosis of hematuria, and dehydration, on O2/05. The patient came to the intensive care unit on 05/17/2021. The patient was intubated on May 17. The patient had respiratory failure, and was evaluated by neurology, and was found to have L-G-B syndrome. The patient did receive IVIG for 5 days. The patient remains on the mechanical ventilator, but has been very weak. He did have a spontaneous breathing trial yesterday, on pressure support of 10, and CPAP of 5, for 6 hours. Currently, he is on volume assist control, rate 34, ti anitha volume 430, FiO2 60%, and PEEP of 8. Arterial blood gases show pO2 of 68, pCO2 45, and pH is 7.46. The patient's on propofol at 25 mcg/kg/m, saline at 20 mL an hour, and vital high protein at 39 mL an hour. That is goal. The patient is currently on meropenem for ESBL Klebsiella, discovered on bronchoscopy on 05/18. White count 9.5, hemoglobin 12.4, hematocrit 38.5, platelet count 297,000. Sodium 147, potassium 4.3, chlorides 113, CO2 29, anion gap 5, BUN 58, creatinine 1.38. AST 109, with an ALT of 98. Albumin is 2.3. Chest x-ray is improved, with residual infiltrate in the right lower lobe. Progress note dated 05/26/2021. The patient is again seen in room 251. This is a 70-year-old male with history of respiratory failure. The patient was initially admitted with a diagnosis of hematuria, and dehydration on O2/05. The patient came to the intensive care unit on 05/17/2021. The patient was intubated on the same day. The patient was evaluated by neurology, and was found to have L-G-B syndrome. The patient did receive IVIG first 5 days. The patient has been on the ventilator since being intubated. Currently, he's on volume assist control, rate 34, tidal volume 430, FiO2 70%, and PEEP of 8. Blood gases show pO2 of 63, 47, and pH is 7.44. The patient remains on propofol at 25 mcg/kg/m, saline at 20 mL an hour, and vital high protein at 51 mL an hour, which is goal. Yesterday, the patient was on pressor support of 10 and CPAP of 5 for 5 hours. The patient will receive 1 additional day of meropenem for his ESBL Klebsiella, it was discovered on bronchoscopy washes, on 05/18. White count 12.6, he will been numb 0.4, hematocrit 35.6, platelet count 281,000. Sodium 149, potassium 4.2, chlorides 114, CO2 28, anion gap 7 BUN 67, and creatinine 1.23. Chest x-ray shows bilateral infiltrates, and consolidation, particularly at the bases, left greater than right. Progress note dated 05/27/2021. 70-year-old male seen in room 251. The patient has a history of respiratory failure, and was admitted with a diagnosis of hematuria and dehydration on . The patient came to the intensive care unit 5 days later on May 17, and was intubated on the same day. The patient was evaluated by neurology and was found to have L-G-B syndrome, and he received 5 days of IVIG. The patient has been on the ventilator since being intubated on the . Currently, the patient is on volume assist control, rate of 34, tidal volume 4:30, FiO2 of 80%, and PEEP of 8 blood gases show a PaO2 of 62, pCO2 48, and a pH is 7.44. The patient's currently receiving D5W at 50 mL an hour, propofol at 15 mcg/kg/m, and vital high protein at 51 mL an hour, which is goal. Yesterday, the patient went on pressure support and CPAP at 10 and 5 respectively, for ab out 5 hours. Towards the end, he was doing poorly, and is quite tachypneic. White count 16.5, hemoglobin 12.8, hematocrit 41, and platelet count 319,000. Sodium 149, potassium 4.2, chlorides 114, CO2 29, anion gap 6, BUN 61, and creatinine 1.29. Calcium is 9. Chest x-ray shows some bibasilar atelectasis and consolidation. There is some mild interstitial changes as well. Objective - Vital Signs Vital signs: Vital Signs Temp 101 F H 05/27/21 08:00 Pulse 92 05/27/21 10:00 Resp 37 H 05/27/21 10:00 BP 109/76 05/27/21 10:00 Pulse Ox 91 L 05/27/21 10:00 Intake & Output 05/26/21 05/27/21 05/27/21 18:59 06:59 18:59 Intake Total 2174.781 3991.779 477.840 Output Total 1085 1560 385 Balance -73.289 150.779 92.840 Weight 91.4 kg Intake: IV 226 138 39 Sodium Chloride 0.9% 1, 160 90 30 000 ml @ 25 mls/hr IV . Q24H [facility] Rx#:[id number] pressure bag .9 66 48 9 Intake, IV Titration 683.711 819.779 204.840 Amount Dextrose 5% in Water 1, 300 550 150 000 ml @ 50 mls/hr IV . Q20H [facility] Rx#:[id number] Meropenem 2 gm In Sodium 200 100 Chloride 0.9% 100 ml @ 33 .3 mls/hr IVPB Q8HR [facility] Rx#:[id number] propofoL 1,000 mg In 183.711 169.779 54.840 Empty Bag 1 bag @ Titrate IV .Q0M [facility] Rx#: [id number] Tube Feeding 102 663 204 Other 90 30 Output: Urine 1085 1560 385 Other: Voiding Method Indwelling Catheter Indwelling Catheter Indwelling Catheter ABP, PAP, CO, CI - Last Documented Arterial Blood Pressure 102/58 - Exam No acute distress, intubated, and mechanically ventilated, sedated, with an orally placed endotracheal tube. HEENT examination is grossly unremarkable. Neck supple. Full range of motion. No adenopathy thyromegaly or neck vein distention. Cardiovascular examination reveals regular rhythm rate. S1-S2 normal. No S3 or S4. No discernible murmur noted. Heart sounds are distant. Heart rate 92 bpm. Lungs reveal bilateral coarse rhonchi. No wheezes. No crackles. Breath sounds equal bilaterally. Saturations are 91 % Abdomen soft bowel sounds are heard. No masses or tenderness. Extremities are intact. No cyanosis or clubbing. Mild edema is noted. Skin is without rash or lesion. Neurologic examination is difficult to assess as the patient's currently sedated with propofol. We the patient is off propofol, he is profoundly weak, and mental status is depressed. - Labs CBC & Chem 7: 05/27/21 05:56 05/27/21 05:56 Labs: Abnormal Lab Results - Last 24 Hours (Table) 05/26/21 05/26/21 05/26/21 Range/Units 11:37 16:02 19:36 WBC (3.8-10.6) k/uL RBC (4.30-5.90) m/uL Hgb (13.0-17.5) gm/dL Neutrophils # (Manual) (1.3-7.7) k/uL Lymphocytes # (Manual) (1.0-4.8) k/uL ABG pCO2 (35-45) mmHg ABG pO2 (83-108) mmHg ABG HCO3 (21-25) mmol/L ABG Total CO2 (19-24) mmol/L ABG O2 Saturation (94-97) % Sodium (137-145) mmol/L Chloride (98-107) mmol/L BUN (9-20) mg/dL Creatinine (0.66-1.25) mg/dL Glucose (74-99) mg/dL POC Glucose (mg/dL) 220 H 119 H 180 H (75-99) mg/dL 05/26/21 05/27/21 05/27/21 Range/Units 23:34 03:53 05:56 WBC 16.5 H (3.8-10.6) k/uL RBC 4.16 L (4.30-5.90) m/uL Hgb 12.8 L (13.0-17.5) gm/dL Neutrophils # (Manual) 15.18 H (1.3-7.7) k/uL Lymphocytes # (Manual) 0.83 L (1.0-4.8) k/uL ABG pCO2 (35-45) mmHg ABG pO2 (83-108) mmHg ABG HCO3 (21-25) mmol/L ABG Total CO2 (19-24) mmol/L ABG O2 Saturation (94-97) % Sodium (137-145) mmol/L Chloride (98-107) mmol/L BUN (9-20) mg/dL Creatinine (0.66-1.25) mg/dL Glucose (74-99) mg/dL POC Glucose (mg/dL) 186 H 219 H (75-99) mg/dL 05/27/21 05/27/21 05/27/21 Range/Units 05:56 06:05 07:40 WBC (3.8-10.6) k/uL RBC (4.30-5.90) m/uL Hgb (13.0-17.5) gm/dL Neutrophils # (Manual) (1.3-7.7) k/uL Lymphocytes # (Manual) (1.0-4.8) k/uL ABG pCO2 48 H (35-45) mmHg ABG pO2 62 L (83-108) mmHg ABG HCO3 33 H (21-25) mmol/L ABG Total CO2 34 H (19-24) mmol/L ABG O2 Saturation 91.5 L (94-97) % Sodium 149 H (137-145) mmol/L Chloride 114 H (98-107) mmol/L BUN 61 H (9-20) mg/dL Creatinine 1.29 H (0.66-1.25) mg/dL Glucose 231 H (74-99) mg/dL POC Glucose (mg/dL) 212 H (75-99) mg/dL Assessment and Plan Assessment: Acute hypoxemic respiratory failure secondary to Figivl-Djeywqyt-Bfyge (L-G-B) syndrome, status post intubation and mechanical ventilation, on 05/17/2021 Progressive/ascending muscle weakness with sensory loss and areflexia, secondary to L-G-B syndrome, status post 5 days of IVIG. Right lower lobe pneumonia secondary to ESBL Klebsiella, treated with meropenem. Status post bronchoscopy, 05/18/2021. Hematuria, with possible bladder malignancy, currently being evaluated by urology. History of chronic atrial fibrillation. [id number] history of tobacco use. Benign essential hypertension. Type 2 diabetes mellitus. Chronic renal insufficiency. Plan: Plan dated 05/21/2021. The patient remains on the mechanical ventilator. He is not yet ready to be weaned from mechanical ventilation. The patient continues on IVIG as per neurology. The patient continues on GI and DVT prophylaxis. The bronchial washing showed evidence of ESBL Klebsiella, and the antibiotics were changed from Zosyn to meropenem. We will continue tube feedings. Additional recommendations and suggestions are forthcoming. Prognosis is guarded. We will continue to follow and make recommendations where appropriate. Plan dated 05/22/2021. The patient remains on the mechanical ventilator. We will attempt a daily inter ruption of sedation, and a spontaneous breathing trial, with a pressure support of 10 and CPAP of 5. The patient did receive 5 days of IVIG. The patient's currently on meropenem for his Klebsiella found in the bronchoscopy wash, on May 18. The patient remains on propofol at 50 mcg/kg/m. He is getting nutrition at goal. Overall prognosis is guarded. We'll continue to follow make recommendations where appropriate. Plan dated 05/23/2021. The patient remains on the ventilator. The patient had a brief daily interruption of sedation yesterday, but required re-sedation. The patient chirag ears not to be ready for significant weaning and extubation. The patient did receive 5 days of IVIG. The patient is currently on meropenem for Klebsiella pneumoniae, ESBL, found on bronchoscopy washings from May 18. The patient remains on propofol at 40 mcg/kg/m. The patient is receiving tube feedings. Additional recommendations and suggestions are forthcoming. Prognosis is guarded. We will continue to follow make recommendations where appropriate. Plan dated 05/24/2021. The patient remains on the ventilator. We do do a daily interruption's of sedation with spontaneous breathing trials, but the patient is profoundly weak, and only last minutes on the pressure support and CPAP. We will continue to try. He is currently on meropenem for ESBL Klebsiella pneumoniae found in the bronchoscopy washings from 05/18. The patient remains on propofol, and is been cut back to 25 mcg/kg/m. The patient is receiving tube feedings. He is at goal. Additional recommendations and suggestions are forthcoming. Prognosis is guarded. Plan dated 05/25/2021. The patient remains on ventilator, did have a successful weaning trial yesterday. We will again attempt a daily interruption of sedation and a spontaneous breathing trial. The patient will be on PSV 10, and CPAP of 5. Clinically, the patient appears to be a bit more awake. The patient was intubated on O2/10. If there is no progression, over the weekend, or early next week, we will opt for a tracheostomy tube. Blood gases are reasonable. The patient is being nourished. The patient did receive IVIG for 5 days. Labs, x- rays, and medications are all reviewed. Prognosis is guarded. We will continue to follow the patient and make recommendations where appropriate. Plan dated 05/26/2021. Currently, the patient will have another daily interruption of sedation and spontaneous breathing trial. He'll be placed on PSV 10, and CPAP of 5. Yesterday, he went for 5 hours. The patient still is profoundly weak. We'll hoping that he improves in the next day or 2. The patient remains on propofol for the current time. He has 1 more day meropenem. Blood gases are reasonable. His exam is unchanged. He did receive 5 days of IVIG. Should the patient not make any additional improvement, some consideration should be given a tracheostomy and PEG tube placement. Prognosis is guarded. We will continue to follow make recommendations where appropriate. Plan dated 05/27/2021. The patient did poorly on his spontaneous breathing trial yesterday. Towards the end, he became very short of breath. The patient is likely a candidate for a tracheostomy and PEG tube placement. He's been slow to recover from his mu scle weakness. The PEEP was increased to 10. We will attempt to wean the FiO2. We will not do a daily interruption of sedation today. We will also consult surgery for tracheostomy and PEG tube placement. A.m. labs and x-rays are ordered. The patient continues on tube feedings. Medications, laboratory data, and x-rays all reviewed. The patient also continues on GI and DVT prophylaxis. Time with Patient: Greater than 30
[2021-05-27 11:36] LABS: Glucose,Whole Blood 197 mg/dL (75-99)
[2021-05-27] MEDS: ACETAMINOPHEN TAB 325 MG TAB PO PRN (12:34)
--- NOTE | 2021-05-27 16:52 | P.GSCN ---
History of Present Illness Consult date: 05/27/21 History of present illness: CHIEF COMPLAINT: Prolonged intubation and inadequate protein intake HISTORY OF PRESENT ILLNESS: The patient is a 70 year old male admitted 0 05/17/2021 with hematuria, acute respiratory failure and dehydration. He was diagnosed with Guillain-Bergman syndrome. He has been intubated for over 10 days. He has failed weaning trials. He is on IVIG. He is on goal tube feeds high- protein vital at 51 mL per hour. Due to his inability for extubation, tracheostomy and gastrostomy tube placement is being requested. PAST MEDICAL HISTORY: See list and reviewed PAST SURGICAL HISTORY: See list and reviewed MEDICATIONS: See list and reviewed ALLERGIES: See list and reviewed SOCIAL HISTORY: See list and reviewed FAMILY HISTORY: See list and reviewed REVIEW OF ORGAN SYSTEMS: Per chart CONSTITUTIONAL: Recent fever 101.6. EYES: No trouble with vision. HEENT: No difficulties with hearing. No nosebleeds. RESPIRATORY: As above. Has acute hypoxemic respiratory failure and intubated. Tobacco abuse disorder CARDIOVASCULAR: Has hypertensive heart disease and on anticoagulant. Has hyperlipidemia. Has coronary artery disease. History of myocardial infarction GASTROINTESTINAL: Currently on tube feeds due to intubation. 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 No seizure disorders or headaches. MUSCULOSKELETAL: Has back pain, stiffness or joint arthritis. SKIN: No current skin cancer. No rash. PSYCHIATRIC: No suicidal thoughts. Has depressive disorder ENDOCRINE: No current thyroid disorders. Has insulin-dependent diabetes type 2. HEME/LYMPHATIC: No any lumps and bumps around the neck. On chronic anticoag ulant. ALLERGY/IMMUNOLOGY: No immunoglobulin therapy. No immune deficiencies. BREAST: No current breast lumps, pain or nipple discharge. PHYSICAL EXAM: VITALS: Reviewed CONSTITUTIONAL: Well developed and in no acute distress. EYES: Conjuctivae without sclera icterus. Extraocular movements grossly intact. HEAD, EARS, NOSE, THROAT: Moist buccal mucosa. Head is atraumatic, normocephalic. NECK: Supple. No JV distention. No thyroidomegaly. RESPIRATORY: Mechanical ventilation CARDIOVASCULAR: 2+ radial pulses. ABDOMEN: Abdominal incision at the epigastrium. LYMPH: No gross neck lymphadenopathy. MUSCULOSKELETAL: No clubbing cyanosis SKIN: Warm and well perfused with good skin turgor. NEUROLOGIC: Cranial nerves II through XII grossly intact. No focal or lateralizing signs. PSYCH: Alert to person CLINCAL LABS: Reviewed. WBC elevated at 16.5 leukocytosis. Hemoglobin low at 12.8 with anemia. Creatinine elevated 1.2. Blood glasses low oxygen saturations level 92% RADIOLOGY: Report reviewed chest x-ray with right pleural effusion. COPD present. ASSESSMENT: 1. Acute hypoxic respiratory failure with prolonged intubation 2. Guillain-Bergman syndrome 3. 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 Acute fevers with leukocytosis PLAN: 1. Patient elevated risk for gastrostomy tube placement due to congenital disorder of the abdominal wall. Recommend abdominal xray, CT for orientation of anatomy. 2. Tracheostomy per protocol due to prolonged intubation 3. Currently, patient having new fevers with leukocytosis. Procedure may be deferred until more clinically stable ADVANCE DIRECTIVE: Thank you for this kind consultation. Past Medical History Past Medical History: Coronary Artery Disease (CAD), Diabetes Mellitus, Hyperlipidemia, Hypertension, Myocardial Infarction ([place]) Additional Past Medical History / Comment(s): abdominal hernia Last Myocardial Infarction Date:: 1972 History of Any Multi-Drug Resistant Organisms: ESBL Year Discovered:: 05/18/21 MDRO Source:: ESBL BRONCH WASH Past Surgical History: Heart Catheterization Additional Past Surgical History / Comment(s): stomach surgery, was born with an upside down stomach Additional Past Anesthesia/Blood Transfusion Reaction / Comm: No previous transfusion Past Psychological History: No Psychological Hx Reported Smoking Status: Current every day smoker Past Alcohol Use History: None Reported Past Drug Use History: None Reported - Past Family History Mother Family Medical History: Diabetes Mellitus Medications and Allergies Home Medications Medication Instructions Recorded Confirmed Type Apixaban [Eliquis] 5 mg PO BID 05/26/20 05/12/21 History Atorvastatin Calcium [Lipitor] 80 mg PO HS 05/26/20 05/12/21 History Metoprolol Tartrate [Lopressor] 50 mg PO BID 05/26/20 05/12/21 History INSULIN ASPART (NovoLOG) [NovoLOG 5 unit SQ AC-BID 05/12/21 05/12/21 History (formulary)] Insulin Detemir (Levemir) [Levemir] 15 unit SQ BID 05/12/21 05/12/21 History Sertraline [Zoloft] 50 mg PO DAILY 05/12/21 05/12/21 History Sulfamethox-Tmp 800-160Mg [Bactrim 1 tab PO BID 05/12/21 05/12/21 History DS 800-160 mg] Tamsulosin [Flomax] 0.4 mg PO BID 05/12/21 05/12/21 History traMADol HCl [Ultram] 50 mg PO TID PRN 05/12/21 05/12/21 History Allergies Allergy/AdvReac Type Severity Reaction Status Date / Time cephalexin [From Keflex] Allergy Nausea & Verified 05/12/21 11:20 Vomiting & Diarrhea Surgical - Exam Vital Signs Temp Pulse Resp BP Pulse Ox 97.6 F 96 18 140/96 98 05/12/21 10:22 05/12/21 10:22 05/12/21 10:22 05/12/21 10:22 05/12/21 10:22 Results - Labs 05/27/21 05:56 05/27/21 05:56 Abnormal Lab Results - Last 24 Hours (Table) 05/26/21 05/26/21 05/26/21 Range/Units 16:02 19:36 23:34 WBC (3.8-10.6) k/uL RBC (4.30-5.90) m/uL Hgb (13.0-17.5) gm/dL Neutrophils # (Manual) (1.3-7.7) k/uL Lymphocytes # (Manual) (1.0-4.8) k/uL ABG pCO2 (35-45) mmHg ABG pO2 (83-108) mmHg ABG HCO3 (21-25) mmol/L ABG Total CO2 (19-24) mmol/L ABG O2 Saturation (94-97) % Sodium (137-145) mmol/L Chloride (98-107) mmol/L BUN (9-20) mg/dL Creatinine (0.66-1.25) mg/dL Glucose (74-99) mg/dL POC Glucose (mg/dL) 119 H 180 H 186 H (75-99) mg/dL 05/27/21 05/27/21 05/27/21 Range/Units 03:53 05:56 05:56 WBC 16.5 H (3.8-10.6) k/uL RBC 4.16 L (4.30-5.90) m/uL Hgb 12.8 L (13.0-17.5) gm/dL Neutrophils # (Manual) 15.18 H (1.3-7.7) k/uL Lymphocytes # (Manual) 0.83 L (1.0-4.8) k/uL ABG pCO2 (35-45) mmHg ABG pO2 (83-108) mmHg ABG HCO3 (21-25) mmol/L ABG Total CO2 (19-24) mmol/L ABG O2 Saturation (94-97) % Sodium 149 H (137-145) mmol/L Chloride 114 H (98-107) mmol/L BUN 61 H (9-20) mg/dL Creatinine 1.29 H (0.66-1.25) mg/dL Glucose 231 H (74-99) mg/dL POC Glucose (mg/dL) 219 H (75-99) mg/dL 05/27/21 05/27/21 05/27/21 Range/Units 06:05 07:40 11:34 WBC (3.8-10.6) k/uL RBC (4.30-5.90) m/uL Hgb (13.0-17.5) gm/dL Neutrophils # (Manual) (1.3-7.7) k/uL Lymphocytes # (Manual) (1.0-4.8) k/uL ABG pCO2 48 H (35-45) mmHg ABG pO2 62 L (83-108) mmHg ABG HCO3 33 H (21-25) mmol/L ABG Total CO2 34 H (19-24) mmol/L ABG O2 Saturation 91.5 L (94-97) % Sodium (137-145) mmol/L Chloride (98-107) mmol/L BUN (9-20) mg/dL Creatinine (0.66-1.25) mg/dL Glucose (74-99) mg/dL POC Glucose (mg/dL) 212 H 197 H (75-99) mg/dL Diabetes panel 05/27/21 Range/Units 05:56 Sodium 149 H (137-145) mmol/L Potassium 4.2 (3.5-5.1) mmol/L Chloride 114 H (98-107) mmol/L Carbon Dioxide 29 (22-30) mmol/L BUN 61 H (9-20) mg/dL Creatinine 1.29 H (0.66-1.25) mg/dL Glucose 231 H (74-99) mg/dL Calcium 9.0 (8.4-10.2) mg/dL Calcium panel 05/27/21 Range/Units 05:56 Calcium 9.0 (8.4-10.2) mg/dL Pituitary panel 05/27/21 Range/Units 05:56 Sodium 149 H (137-145) mmol/L Potassium 4.2 (3.5-5.1) mmol/L Chloride 114 H (98-107) mmol/L Carbon Dioxide 29 (22-30) mmol/L BUN 61 H (9-20) mg/dL Creatinine 1.29 H (0.66-1.25) mg/dL Glucose 231 H (74-99) mg/dL Calcium 9.0 (8.4-10.2) mg/dL Adrenal panel 05/27/21 Range/Units 05:56 Sodium 149 H (137-145) mmol/L Potassium 4.2 (3.5-5.1) mmol/L Chloride 114 H (98-107) mmol/L Carbon Dioxide 29 (22-30) mmol/L BUN 61 H (9-20) mg/dL Creatinine 1.29 H (0.66-1.25) mg/dL Glucose 231 H (74-99) mg/dL Calcium 9.0 (8.4-10.2) mg/dL Assessment and Plan (1) Congenital anomaly of abdomen Current Visit: Yes Status: Acute Code(s): Q89.9 - CONGENITAL MALFORMATION, UNSPECIFIED SNOMED Code(s): 233074423 (2) Fever Current Visit: Yes Status: Acute Code(s): R50.9 - FEVER, UNSPECIFIED SNOMED Code(s): 789174035 (3) Leukocytosis Current Visit: Yes Status: Acute Code(s): D72.829 - ELEVATED WHITE BLOOD CELL COUNT, UNSPECIFIED SNOMED Code(s): 435273396 (4) Guillain Bergman syndrome Current Visit: Yes Status: Acute Code(s): G61.0 - GUILLAIN-BARRE SYNDROME SNOMED Code(s): 25207160 (5) Hematuria Current Visit: Yes Status: Acute Code(s): R31.9 - HEMATURIA, UNSPECIFIED SNOMED Code(s): 28566717 (6) Pneumonia Current Visit: Yes Status: Acute Code(s): J18.9 - PNEUMONIA, UNSPECIFIED ORGANISM SNOMED Code(s): 493439873 (7) Acute kidney injury Current Visit: No Status: Acute Code(s): N17.9 - ACUTE KIDNEY FAILURE, UNSPECIFIED SNOMED Code(s): 89051422
[2021-05-27 18:08] LABS: Glucose,Whole Blood 220 mg/dL (75-99)
[2021-05-27 20:39] LABS: Glucose,Whole Blood 310 mg/dL (75-99)
[2021-05-27] MEDS: ATORVASTATIN 80 MG TAB PO SCH (20:51)
[2021-05-27] MEDS: INSULIN DETEMIR (LEVEMIR) 100 UNIT/ML SYR SQ SCH (20:59)
--- NOTE | 2021-05-27 21:19 | P.PN ---
Subjective From records Patient is a 70-year-old male with a known history of hypertension, hyperlipidemia, diabetes type 2 insulin-dependent, history of AK status post cardiac catheterization, currently everyday smoker and BPH presented to ER with complaints of left hip pain and also left shoulder pain. Pain gets worse with movement. Patient denies any recent falls. Patient initially presented to ER and had CT abdominal pelvis which showed moderate bilateral hydronephrosis and hydroureter. This could relate to reflux. Appearance not changed compared with exam. Dilated gallbladder increased compared to holograms history of cholecystitis. There are few calcified gallstones. Pancreatic calcifications appear unchanged and consistent with chronic pancreatitis. Sigmoid diverticulosis hypertrophic changes in the urinary bladder similar to old exam. Nodular density at the base of the bladder could be enlarged prostate or bladder mass. Unchanged. Enlarged prostate. There is a 12 mm stellate nodule in the subpleural lateral right lower lobe that appears to be new compared to old exam. Follow-up recommended. X-ray of the shoulder no acute fracture or dislocation. Moderate narrowing and mild to moderate spurring at the acromioclavicular joint is more prominent from prior. Hip x-ray showed mild to moderate degenerative joint disease. Laboratory data showed sodium 135 potassium 4.3 chloride 102 bicarb is 21 BUN 20 and creatinine 1.47 blood sugar is 267 Urinalysis showed large blood nitrate negative and large leukocyte esterase with elevated RBCs and WBCs. WBC 11.5 hemoglobin 14.3 and platelets 277. Coronavirus PCR not detected. 05/13/2021 Patient is currently lying in the bed. Awake alert and still complaining of left lower abdominal pain and hip pain. X-ray of the hip showed mild degenerative changes without acute fracture or dislocation. Overlying soft tissue appears unremarkable. Vascular calcifications noted. Otherwise no acute process identified. Patient admitted on pain management. Urology has seen the patient and recommend outpatient follow-up for cystoscopy. Resume Eliquis at this time. PT OT consult and continue with pain management. Subjective: resuming the care from above 05/14/2021 This is a pleasant 70 years old male who presents on 05/12 for limb pain and inability to walk. Patient complains from weakness in all 4 extremities but more pronounced in the left leg as he states he barely can lift it off the bed. Also he has decreased sensation when examined his left leg. However he complains also to some degree of weakness from all 4 extremities motor he could not move his both arms above his head however passively I could move them up and patient had good tone in his muscles and he could hold them up above his head but then he will drop down once released Patient denies any abdominal pain today and he states that his hematuria has been cleared today back to yellow urine. Patient also feels generally weak and he might need to go to rehab. Patient hematuria problem is not in the room and he has his urologist seen prior to hospitalization and he is supposed to get stress test with [employer] this, the Friday as part of preop evaluation. Also patient states that he was on baby aspirin at home but he ran out of it about one week prior to hospitalization. Also he is on Eliquis Patient told me that he has A. fib and that's why he takes Eliquis at home and that has been taking Eliquis and aspirated one week ago Subjective: Resuming the care of the patient again starting to 05/18/2021, after Dr. Jefferson. Patient currently in the ICU intubated and sedated. 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 With pulmonary/critical care team following him closely and help with vent management, today his FiO2 increased 50% up to 8% after pO2 was low 76. Rest of ABG was normal. He remains on PEEP of 8. Also patient is receiving IVIG. Today's the third dose. His lumbar puncture was consistent with his Gullian Juan syndrome with elevated opening up pressure at 30 cm of water . Also RBCs high 118, decreased protein 148, glucose is 104. Nucleated cells/WBC 1 only. Also patient developing low-grade fever and chest x-ray showing marked lower lobe infiltrate and his antibiotics was adjustment today ceftriaxone and to Zosyn. Patient remains critically ill. 05/19/2021 Patient re also he is developing hypotension requiring Levophed however he needs this dose today at 0.06 g per KG per minute. guerita in the ICU in critical condition intubated and sedated with pulmonary/critical care team are following him closely. Patient is developing respiratory failure secondary to his Gullina- Berri syndrome. And the neurology on the case and he is receiving IVIG He is a known case of A. fib on metoprolol and Eliquis, which was changed to he rabia drip because he needed lumbar puncture. Metoprolol was held once he needed Levophed , so today he developed A. fib and RVR which is currently controlled with amiodarone 400 mg twice a day with [employer] consulted and recommended echocardiogram. Also patient is on Zosyn for right basal versus bilateral basal pneumonia, also shown on today's chest x-ray. Remains intubated with FiO2 lower today to 55%, remains on PEEP of 8 like yesterday. He has no fever today. Leukocytosis slightly up 12.9, creatinine is stable at 1.4. 05/20/2021 Patient presents with weakness in all extremities motor on the left lower leg and decreased sensation, moved to the ICU on ) monitoring got deteriorated overnight and he had to be intubated because of worsening respiratory status. Neurology was already on the case and were following him closely. patient currently kept monitored in the ICU with pulmonary/critical care team helping with vent management. Also he is receiving IVIG under the kindness of neurology team, distal intubated and sedated which limits his examination. His leukocytosis improved to 8.6 today. Creatinine is stable at 1.4. He had no fever since yesterday. PEEP remains at 8, FiO2 remains at 50%, he is tachypneic. Sputum culture chronic gram-negative bacilli remains on Zosyn empirically pending final results of the culture. Is also an heparin drip just to liquids per [employer]. Also IVIG. Also Pepcid. Also his A. fib controlled with amiodarone 400 mg on the top of home dose of metoprolol 50 mg. Subjective: Patient cannot provide information Resuming the care of the patient on 05/23/2021 Patient underwent sedation trial today while he is on propofol with no success since yesterday. patient remains intubated and sedated secondary to his hypoxia and respiratory failure, with pulmonary/critical care team following him closely and help with vent management. He is status post 5 days of IVIG her pulmonary team following him closely as well . He's also on meropenem for ESBL Klebsiella obtained from his bronchoscopy lavage done on 05/18. He still tachypneic and recurrent low-grade fever over 100.4. He has mild leukocytosis of 11.2. Liver enzymes mildly elevated and chest x-ray shows stable perihilar and basal infiltrates. 05/24/2021 Patient is with Gullian Berri syndrome and respiratory failure requiring intubation and mechanical ventilation complicated by ESBL Klebsiella pneumonia on meropenem. He finished his 5 days of IVIG and currently undergoing sedation interruption and holiday by holding his propofol. The meantime he remains on heparin drip for which is wished to Eliquis. Also he is on insulin 20 units at sugar controlled WBC is 10.3, creatinine at baseline 1.3. He has fever of 100.2. FiO2 is 50% and he is tachypneic. 05/25/2021 Patient remains intubated and sedated in the ICU with pulmonary/critical care team following him closely. And help with vent management. Patient undergoing sedation holiday while he is on a propofol. He finished treatment for IVIG and currently being monitored closely. He is also on meropenem for Klebsiella pneumonia. He is still tachycardic, tachypneic and building up low-grade temperature at 100 today. Fungal cultures positive for tawana but chest x-ray showing improving right lo wer lobe infiltrate. His creatinine is 1.38, sodium 147. 05/26/2021 Remains in the ICU with need for mechanical intubation with pulmonary/critical care team help with vent management. Total has fever of 100 and tachypneic and tachycardic. Leukocytosis of 12.6, creatinine 1.2, sodium went up to 149 and patient was placed on D5W. Glucose controlled around 200 while he is on Levemir 23 units at bedtime. Chest x-ray showed slight worsening right more than left. Patient remains on meropenem, Eliquis 05/27/2021 Patient still in critical condition in ICU on mechanical ventilation with pulmonary/critical care team following closely and help in critical management and vent management. They didn't do sedation interruption today because of his intolerance. He states is scheduled for PEG and tracheostomy tomorrow condition of critical care team who consulted surgery team. E is a still tachycardic, tachypneic with low-grade fever and leukocytosis at 16 K, creatinine is stable 1.2 sodium stable but high at 149 and he is on D5W at 50 mL/h, he is on Eliquis. Pulmonary team discontinued his antibiotic meropenem today. We will keep monitoring while off antibiotic and I will order procalcitonin tomorrow Objective - Vital Signs Vital signs: Vital Signs Temp 101 F H 05/27/21 08:00 Pulse 92 05/27/21 10:00 Resp 37 H 02/20/22 10:00 BP 109/76 05/27/21 10:00 Pulse Ox 91 L 05/27/21 10:00 Intake & Output 05/26/21 05/27/21 05/27/21 18:59 06:59 18:59 Intake Total 1731.793 7547.779 477.840 Output Total 1085 1560 385 Balance -73.289 150.779 92.840 Weight 91.4 kg Intake: IV 226 138 39 Sodium Chloride 0.9% 1, 160 90 30 000 ml @ 25 mls/hr IV . Q24H [facility] Rx#:[id number] pressure bag .9 66 48 9 Intake, IV Titration 683.711 819.779 204.840 Amount Dextrose 5% in Water 1, 300 550 150 000 ml @ 50 mls/hr IV . Q20H [facility] Rx#:[id number] Meropenem 2 gm In Sodium 200 100 Chloride 0.9% 100 ml @ 33 .3 mls/hr IVPB Q8HR [facility] Rx#:[id number] propofoL 1,000 mg In 183.711 169.779 54.840 Empty Bag 1 bag @ Titrate IV .Q0M [facility] Rx#: [id number] Tube Feeding 102 663 204 Other 90 30 Output: Urine 1085 1560 385 Other: Voiding Method Indwelling Catheter Indwelling Catheter Indwelling Catheter ABP, PAP, CO, CI - Last Documented Arterial Blood Pressure 102/58 - Exam -GENERAL: The patient is intubated and sedated HEENT: Pupils are round and equally reacting to light. EOMI. No scleral icterus. No conjunctival pallor. Normocephalic, atraumatic. No pharyngeal erythema. No thyromegaly. CARDIOVASCULAR: S1 and S2 present. No murmurs, rubs, or gallops. PULMONARY: Chest is clear to auscultation, no wheezing or crackles. ABDOMEN: Soft, nontender, nondistended, normoactive bowel sounds. No palpable organomegaly. MUSCULOSKELETAL: No joint swelling or deformity. EXTREMITIES: No cyanosis, clubbing, or pedal edema. -NEUROLOGICAL: Examination is limited by patient intubation. Pupils are equal and reactive to light. No facial asymmetry. Absent reflexes SKIN: No rashes. no petechiae. - Labs CBC & Chem 7: 05/27/21 05:56 05/27/21 05:56 Labs: Abnormal Lab Results - Last 24 Hours (Table) 05/26/21 05/26/21 05/26/21 Range/Units 11:37 16:02 19:36 WBC (3.8-10.6) k/uL RBC (4.30-5.90) m/uL Hgb (13.0-17.5) gm/dL Neutrophils # (Manual) (1.3-7.7) k/uL Lymphocytes # (Manual) (1.0-4.8) k/uL ABG pCO2 (35-45) mmHg ABG pO2 (83-108) mmHg ABG HCO3 (21-25) mmol/L ABG Total CO2 (19-24) mmol/L ABG O2 Saturation (94-97) % Sodium (137-145) mmol/L Chloride (98-107) mmol/L BUN (9-20) mg/dL Creatinine (0.66-1.25) mg/dL Glucose (74-99) mg/dL POC Glucose (mg/dL) 220 H 119 H 180 H (75-99) mg/dL 05/26/21 05/27/21 05/27/21 Range/Units 23:34 03:53 05:56 WBC 16.5 H (3.8-10.6) k/uL RBC 4.16 L (4.30-5.90) m/uL Hgb 12.8 L (13.0-17.5) gm/dL Neutrophils # (Manual) 15.18 H (1.3-7.7) k/uL Lymphocytes # (Manual) 0.83 L (1.0-4.8) k/uL ABG pCO2 (35-45) mmHg ABG pO2 (83-108) mmHg ABG HCO3 (21-25) mmol/L ABG Total CO2 (19-24) mmol/L ABG O2 Saturation (94-97) % Sodium (137-145) mmol/L Chloride (98-107) mmol/L BUN (9-20) mg/dL Creatinine (0.66-1.25) mg/dL Glucose (74-99) mg/dL POC Glucose (mg/dL) 186 H 219 H (75-99) mg/dL 05/27/21 05/27/2105/27/22 Range/Units 05:56 06:05 07:40 WBC (3.8-10.6) k/uL RBC (4.30-5.90) m/uL Hgb (13.0-17.5) gm/dL Neutrophils # (Manual) (1.3-7.7) k/uL Lymphocytes # (Manual) (1.0-4.8) k/uL ABG pCO2 48 H (35-45) mmHg ABG pO2 62 L (83-108) mmHg ABG HCO3 33 H (21-25) mmol/L ABG Total CO2 34 H (19-24) mmol/L ABG O2 Saturation 91.5 L (94-97) % Sodium 149 H (137-145) mmol/L Chloride 114 H (98-107) mmol/L BUN 61 H (9-20) mg/dL Creatinine 1.29 H (0.66-1.25) mg/dL Glucose 231 H (74-99) mg/dL POC Glucose (mg/dL) 212 H (75-99) mg/dL Assessment and Plan Assessment: 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 Secondary to ESBL Klebsiella Bladder mass versus enlarged prostate. Needs cystoscopy as an outpatient Hypernatremia Chronic A. fib and RVR Bilateral moderate hydronephrosis Hematuria resolved now. Acute urinary tract infection. on antibiotic Hyperglycemia with uncontrolled diabetes type 2 insulin-dependent Hypomagnesemia Hypovolemic hyponatremia Acute kidney injury likely prerenal Chronic kidney disease stage III Paroxysmal atrial fibrillation on anticoagulation with Eliquis Hypertension Hyperlipidemia History of AK status post cardiac catheterization. Plan: This is a pleasant 70 years old male who presents with hematuria and generalized weakness and generalized pain. Left leg weakness and decreased sensation. Continue mechanical ventilation with the help of the pulmonary/critical care te am will follow him closely. Continue with sedation trial for pulmonary team status post 5 days of IVIG as per neurology team will follow him closely as well Continue Eliquis due to his history of A. fib. Continue with amiodarone and metoprolol. Cardiology on the case meropenem discontinued by pulmonary team. We will keep monitoring Continue with D5W and monitor sodium level Urology evaluated the patient and recommended cystoscopy and possible TURP as an outpatient and he verbalized understanding and acceptance. The risk of cancer explained Prior to intubation Labs and medication were reviewed.. Continue same treatment. Continue with symptomatic treatment. Resume home medication. Monitor lytes and vitals. DVT and GI prophylaxis. Further recommendations as per clinical course of the patient DVT prophylaxis: On Eliquis GI Prophylaxis: Pepcid PT/OT: deferred Prognosis is guarded
[2021-05-28 00:25] LABS: Glucose,Whole Blood 245 mg/dL (75-99)
[2021-05-28] MEDS: ACETAMINOPHEN TAB 325 MG TAB PO PRN ×2 (00:32→13:17)
[2021-05-28] MEDS: INSULIN ASPART (NovoLOG) 100 UNIT/ML VIAL SQ SCH ×6 (00:32→20:32)
[2021-05-28] MEDS: IPRATROPIUM-ALBUTEROL 3 ML NEB INHALATION SCH ×6 (03:54→23:28)
[2021-05-28 04:52] LABS: Glucose,Whole Blood 193 mg/dL (75-99)
[2021-05-28] MEDS: DEXTROSE 5% IN WATER 1,000 ML IV SCH (05:32)
[2021-05-28 06:00] LABS: ABG Base Excess 7.8 mmol/L; ABG HCO3 31 mmol/L (21-25); ABG Oxygen Saturation 93.8 % (94-97); ABG PCO2 43 mmHg (35-45); ABG PH 7.47 (7.35-7.45); ABG PO2 67 mmHg (83-108); ABG TCO2 33 mmol/L (19-24); Allen Test Performed? Yes
[2021-05-28 07:01] LABS: Basophils # (A) 0.1 k/uL (0-0.2); Basophils % (A) 0 %; Eosinophils # (A) 0.1 k/uL (0-0.7); Eosinophils % (A) 1 %; HCT 41.7 % (39.0-53.0); HGB 12.9 gm/dL (13.0-17.5); Hypochromasia Slight; Lymphocytes # (A) 0.8 k/uL (1.0-4.8); Lymphocytes % (A) 6 %; MCH 30.5 pg (25.0-35.0); MCHC 30.8 g/dL (31.0-37.0); MCV 98.9 fL (80.0-100.0); Mean Platelet Volume 9.6; Monocytes # (A) 0.5 k/uL (0-1.0); Monocytes % (A) 3 %; Neutrophils # (A) 12.9 k/uL (1.3-7.7); Neutrophils % (A) 89 %; Platelet Count 367 k/uL (150-450); RBC 4.22 m/uL (4.30-5.90); WBC 14.5 k/uL (3.8-10.6)
[2021-05-28 07:30] LABS: Calcium 9.1 mg/dL (8.4-10.2); Potassium 4.1 mmol/L (3.5-5.1)
[2021-05-28 08:15] LABS: Glucose,Whole Blood 200 mg/dL (75-99)
[2021-05-28] MEDS: NICOTINE 14MG/24HR PATCH TRANSDERM SCH (08:20)
[2021-05-28] MEDS: CHLORHEXIDINE GLUCONATE 15 ML CUP MUCOUS MEM SCH ×2 (08:20→20:16)
[2021-05-28] MEDS: FOLIC ACID 1 MG TAB PO SCH (08:21)
[2021-05-28] MEDS: METOPROLOL TARTRATE 50 MG TAB PO SCH ×2 (08:21→20:16)
[2021-05-28] MEDS: PANTOPRAZOLE 40 MG/10 ML VIAL IVP SCH (08:21)
[2021-05-28] MEDS: APIXABAN 5 MG TAB PO SCH ×2 (08:21→20:16)
[2021-05-28] MEDS: CYANOCOBALAMIN 500 MCG TAB PO SCH (08:21)
[2021-05-28] MEDS: AMIODARONE 200 MG TAB PO SCH ×2 (08:21→20:16)
[2021-05-28] MEDS: SERTRALINE 50 MG TAB PO SCH (08:22)
[2021-05-28] MEDS: PYRIDOXINE 50 MG TAB PO SCH (08:22)
--- NOTE | 2021-05-28 08:33 | XR ---
EXAMINATION TYPE: XR chest 1V portable DATE OF EXAM: 05/28/2021 COMPARISON: X-ray dated 05/27/2021 HISTORY: Shortness of breath TECHNIQUE: Single frontal view of the chest is obtained. FINDINGS: Persistent moderate right-sided pleural effusion with adjacent pulmonary atelectasis. Underlying infe ction cannot be excluded, please correlate clinically. Small left-sided pleural effusion. No progressive pulmonary consolidation. Left subclavian line with the tip is seen at the superior asp ect of the SVC. The endotracheal tube tip is about 4.8 cm proximal to the rosario. The NG tube is hard ly visualized. IMPRESSION: No significant interval change.
--- NOTE | 2021-05-28 11:27 | P.PN ---
Subjective Progress Note Date: 05/28/21 Principal diagnosis: Guillain-Bergman syndrome, acute hypoxic respiratory failure This is a 70-year-old white male admitted on 05/12/2021, patient was admitted mostly with a chief complaint of bilateral lower extremities weakness left more so than right, and this has been going on for the last 4 weeks. His symptoms have progressed in the last few weeks to develop weakness in the upper extremities, and his speech was also somehow affected. Speech according to him is becoming a bit more slurred, and has been noticing tingling and weakness in the left foot for a while. Over the last 4 weeks, his symptoms have progressively gotten worse. Patient has never received any form of vaccination in the last few years. He is not even vaccinated for COVID-19 infection. Patient denies any history of major medical illnesses although he did have history of coronary artery disease, dyslipidemia, diabetes, hypertension, and previous IA. Patient has also been complaining of bloody urine, and new onset urinary incontinence. CT of the abdomen and pelvis showed bladder mass, possibl e possible malignancy patient was seen by urology, and planning cystoscopy on outpatient basis. At any rate the patient was seen yesterday by the neurologist for his neurological symptoms, and he raised the possibility of Guillain-Bergman syndrome. Patient had MRI of the brain and MRI of the cervical spine, his MRI of the brain is unremarkable. However his MRI of the cervical spine questioned non-enhancing lesion in the upper thoracic spine measuring 1.8 cm favoring focal syrinx. However the neurologist reviewed the MRI of the cervical spine, and he felt that this is mostly artifactual. And clearly stated in his note that his symptoms are not related to the syrinx. In addition he recommended starting the patient on IVIG, and he also recommended lumbar spine to be done tomorrow in the meantime his anticoagulation therapy is on hold. Pulmonary-white, patient describes minimal shortness of breath, no cough no wheezing no fever no chills, no hemoptysis and no chest pain. Considering his symptoms and considering the neurologist concern about possible Guillain-Bergman syndrome, patient was stressed to the ICU yesterday, and I have instructed the respirator therapy to perform nif monitoring on this patient. Patient was reevaluated today on 05/17/2021, ration had a deteriorating clinical course last night, patient developed a picture of hypoxic respiratory failure with worsening pulmonary status last night. I was notified about the patient, he was extremely congested, he had a very weak cough, and his saturations were down in the 70s even on a nonrebreather mask. Recommended immediate intubation of the patient, however I was told that the patient was DO NOT RESUSCITATE CODE STATUS. Then I recommended at least placing the patient on BiPAP, and placed on Precedex for extreme agitation. Apparently overnight the CODE STATUS was changed to full code, I was not notified about the change in the CODE STATUS. I saw this patient this morning today, his respiratory status he is deteriorating, and does not seem to be doing well with BiPAP. Then I recommended again immediate intubation. Patient was intubated, placed on mechanical ventilation, he is now on assist control rate of 30 tidal volume 400 FiO2 on the percent and PEEP of 8. Patient was also noted to be hypotensive, on norepinephrine, and he is on 0.15 mcg/kg/m. Placed on propofol at 75 mcg/kg/m, fluid boluses were given. Went ahead and placed a left subclavian central line, and right brachial arterial line was also placed. Anesthesia is to perform lumbar puncture on this patient sometime today. Chest x-ray post intubation and post left subclavian central line showed adequate placement of the lines and endotracheal tube, significant bibasilar atelectasis and possibly a small left pleural effusion no zurdo. ABG is pending. Reevaluated today on 05/18/2021, patient remains in the ICU, intubated and mec hanically ventilated. However patient was noted to develop worsening chest x- ray and the right lower lobe collapse/atelectasis, and intermittently we have been increasing his FiO2 with worsening chest x-ray, hence I recommended bronchoscopy today and he underwent a bronchoscopy with bronchoalveolar lavage of the right middle lobe, right lower lobe, and a mucous plugs worse suctioned out of the airway especially on the right side. Procedure was well-tolerated, and the plan is to go down on his FiO2. He was initially on 50%, we had to increase his FiO2 up to 80%. He is now back on assist control mode of mechanical ventilation rate 30 tidal volume 430 FiO2 I 50% and PEEP of 8. ABG showed a pO2 of 76 pCO2 of 38 pH of 7.35. Peak airway pressure is 26 blood pressure is 23. Patient remains on multiple drips including norepinephrine, propofol, 45 mcg/kg/m, he is also on norepinephrine at 7 mcg/m, IV fluid at 75 mL per hour in the form of 0.9 normal saline. Patient continues to have per sistent hematuria. Chest x-ray as noted above showed mostly right lower lobe collapse. And atelectasis. 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 Patient remains on IVIG. Patient is receiving enteral feeding in the form of vital HPI at 14 mL per hour. Considering the worsening of his pulmonary status today, patient was not felt to be ideal to consider weaning or to assess off sedation. Reevaluated today on 05/19/2021, patient remains in the ICU, intubated and mechanically ventilated. Patient is on assist control rate of 3 to tidal volume is 430 FiO2 of 65% and PEEP of 8. ABG showed a pO2 of 98 pCO2 of 50 pH of 7.26. Hence I increased the rate to 34, I have also cut down the FiO2 to 55%, PEEP at 8. And tidal volumes the same. Patient remains on propofol at 25 mcg/kg/m, he is also on norepinephrine at 0.06 mcg/kg/m. Amiodarone at 0.5, patient had atrial fibrillation with RVR yesterday, he is known to have history of chronic atrial fibrillation. He is also on heparin drip. Patient is on vital HPI at 24 mL per hour. Chest x-ray is showing significant improvement in his right lower lobe atelectasis/possible pneumonia. Remains on antibiotics, cultures from his bronchoscopy and BAL are pending. WBC count is 4.9 hemoglobin is 12.2. PTT is therapeutic at 58. Electrolytes are normal, renal profile is improving with a BUN of 33 creatinine 1.46. Blood sugar is 171. Reevaluated today on 05/20/2021, patient remains in the ICU, intubated and mechanically ventilated. Patient is on assist control rate of 34, tidal volume 430 FiO2 55% and a cardiac down to 50% today, he is on a PEEP of 8. ABG showed a pO2 of 126 pCO2 of 39 pH of 7.37. Patient is sedated, he is on propofol at 45 mcg/kg/m, he is on heparin for his atrial fibrillation he is on vital HPI at 24 mL/h/goal his IV fluid is at 75 mL per hour and I cut it down to KVO mostly because his chest x-ray is showing mild interstitial edema, and airspace disease bilaterally. Patient will be given a dose of Lasix 40 mg IV push. His WBC count is 8.6 hemoglobin is 11.1. Chest x-ray showed bibasilar atelectasis/infiltrates, and slight interstitial edema. Patient was awakened yesterday, and he was appropriate, followed simple instructions according to the nurse. His BAL from the right lower lobe and right middle lobe is showing gram- negative bacilli, and many polymorphonuclear leukocytes. Final identification is pending. Patient is empirically on Zosyn. Renal functioning is steadily improving, creatinine today is 1.20, this was as high as 1.55 only 4 days ago Progress note dated 05/27/2021. 70-year-old male seen in room 251. The patient has a history of respiratory failure, and was admitted with a diagnosis of hematuria and dehydration on May 12. The patient came to the intensive care unit 5 days later on May 17, and was intubated on the same day. The patient was evaluated by neurology and was found to have L-G-B syndrome, and he received 5 days of IVIG. The patient has been on the ventilator since being intubated on the . Currently, the patient is on volume assist control, rate of 34, tidal volume 4:30, FiO2 of 80%, and PEEP of 8 blood gases show a PaO2 of 62, pCO2 48, and a pH is 7.44. The patient's currently receiving D5W at 50 mL an hour, propofol at 15 mcg/kg/m, and vital high protein at 51 mL an hour, which is goal. Yesterday, the patient went on pressure support and CPAP at 10 and 5 respectively, for about 5 hours. Towards the end, he was doing poorly, and is quite tachypneic. White count 16.5, hemoglobin 12.8, hematocrit 41, and platelet count 319,000. Sodium 149, potassium 4.2, chlorides 114, CO2 29, anion gap 6, BUN 61, and creatinine 1.29. Calcium is 9. Chest x-ray shows some bibasilar atelectasis and consolidation. There is some mild interstitial changes as well. Reevaluated today on 05/28/2021, patient remains in the ICU, intubated and mechanically ventilated. He is now on assist control rate of 34 tidal volume 430 FiO2 80% PEEP of 10. ABG showed a pO2 of 67 pCO2 of 43 pH of 7.47 chest x- ray is showing significant bibasilar infiltrates/atelectasis, right more so than left. Patient has been diagnosed as having ESBL Klebsiella pneumonia infection involving the right lower lobe from his previous bronchoscopy and BAL. Hence I'm renewing his Merrem for his right lower lobe pneumonia, and I'm considering a right lower lobe lavage again as the patient is demonstrating significant worsening in his chest x-ray today. Patient is scheduled to undergo tracheosto my today. And I'm setting him up to have declined as well as removal of his central line from the left IJ. His electrolytes are normal sodium is 147 bit elevated, BUN is 66 creatinine is 1.33 WBC count is 14.9, hemoglobin is 12.9. Chest x-ray as noted above, patient remains on propofol at 35 mcg/kg/m, IV fluid at KVO, and his vital HPI is presently on hold as the patient is scheduled to undergo tracheostomy today because of failure to wean. Objective - Vital Signs Vital signs: Vital Signs Temp 99.8 F H 05/28/21 08:00 Pulse 104 H 05/28/21 11:01 Resp 38 H 05/28/21 10:00 BP 93/66 05/28/21 10:00 Pulse Ox 92 L 05/28/21 10:00 Intake & Output 05/27/21 05/28/21 05/28/21 18:59 06:59 18:59 Intake Total 2984.272 9685.039 557.063 Output Total 1185 1120 445 Balance 326.810 466.039 112.063 Intake: IV 443 756 252 Dextrose 5% in Water 1, 300 600 200 000 ml @ 50 mls/hr IV . Q20H [facility] Rx#:[id number] Sodium Chloride 0.9% 1, 110 120 40 000 ml @ 25 mls/hr IV . Q24H [facility] Rx#:[id number] pressure bag .9 33 36 12 Intake, IV Titration 366.810 158.039 71.063 Amount Dextrose 5% in Water 1, 250 000 ml @ 50 mls/hr IV . Q20H [facility] Rx#:[id number] propofoL 1,000 mg In 116.810 158.039 71.063 Empty Bag 1 bag @ Titrate IV .Q0M [facility] Rx#: [id number] Tube Feeding 612 612 204 Other 90 60 30 Output: Urine 1185 1120 445 Other: Voiding Method Indwelling Catheter Indwelling Catheter Indwelling Catheter ABP, PAP, CO, CI - Last Documented Arterial Blood Pressure 102/58 - Exam Physical Exam revealed a 70-year-old white male intubated, not in distress. Sedated. Head: Atraumatic, normocephalic. Endotracheal tube and orogastric tube are intact. HEENT:[Neck is supple.] [No neck masses.] [No thyromegaly.] [No JVD.] Chest: [Symmetrical chest expansion crackles at the bases. Diminished breath sounds on the right side. Cardiac: Irregular irregular rhythm, normal S1 and S2,, no S3 gallop, no murmur. Abdomen: [Soft, nontender, no megaly, no rebound, no guarding, normal bowel sounds.] Extremities: [No clubbing, no edema, no cyanosis.] Neurological Exam: Cannot assess, patient is sedated, intubated. Psychiatric: Cannot assess patient is sedated and intubated. Skin: No rashes. - Labs CBC & Chem 7: 05/28/21 06:28 05/28/21 06:28 Labs: Abnormal Lab Results - Last 24 Hours (Table) 05/27/21 05/27/21 05/27/21 Range/Units 11:34 18:06 20:38 WBC (3.8-10.6) k/uL RBC (4.30-5.90) m/uL Hgb (13.0-17.5) gm/dL MCHC (31.0-37.0) g/dL Neutrophils # (1.3-7.7) k/uL Lymphocytes # (1.0-4.8) k/uL ABG pH (7.35-7.45) ABG pO2 (83-108) mmHg ABG HCO3 (21-25) mmol/L ABG Total CO2 (19-24) mmol/L ABG O2 Saturation (94-97) % Sodium (137-145) mmol/L Chloride (98-107) mmol/L BUN (9-20) mg/dL Creatinine (0.66-1.25) mg/dL Glucose (74-99) mg/dL POC Glucose (mg/dL) 197 H 220 H 310 H (75-99) mg/dL Procalcitonin (0.02-0.09) ng/mL 05/28/21 05/28/21 05/28/21 Range/Units 00:24 04:51 05:47 WBC (3.8-10.6) k/uL RBC (4.30-5.90) m/uL Hgb (13.0-17.5) gm/dL MCHC (31.0-37.0) g/dL Neutrophils # (1.3-7.7) k/uL Lymphocytes # (1.0-4.8) k/uL ABG pH 7.47 H (7.35-7.45) ABG pO2 67 L (83-108) mmHg ABG HCO3 31 H (21-25) mmol/L ABG Total CO2 33 H (19-24) mmol/L ABG O2 Saturation 93.8 L (94-97) % Sodium (137-145) mmol/L Chloride (98-107) mmol/L BUN (9-20) mg/dL Creatinine (0.66-1.25) mg/dL Glucose (74-99) mg/dL POC Glucose (mg/dL) 245 H 193 H (75-99) mg/dL Procalcitonin (0.02-0.09) ng/mL 05/28/21 05/28/21 05/28/21 Range/Units 06:28 06:28 06:28 WBC 14.5 H (3.8-10.6) k/uL RBC 4.22 L (4.30-5.90) m/uL Hgb 12.9 L (13.0-17.5) gm/dL MCHC 30.8 L (31.0-37.0) g/dL Neutrophils # 12.9 H (1.3-7.7) k/uL Lymphocytes # 0.8 L (1.0-4.8) k/uL ABG pH (7.35-7.45) ABG pO2 (83-108) mmHg ABG HCO3 (21-25) mmol/L ABG Total CO2 (19-24) mmol/L ABG O2 Saturation (94-97) % Sodium 147 H (137-145) mmol/L Chloride 114 H (98-107) mmol/L BUN 66 H (9-20) mg/dL Creatinine 1.33 H (0.66-1.25) mg/dL Glucose 179 H (74-99) mg/dL POC Glucose (mg/dL) (75-99) mg/dL Procalcitonin 0.28 H (0.02-0.09) ng/mL 05/28/21 Range/Units 08:14 WBC (3.8-10.6) k/uL RBC (4.30-5.90) m/uL Hgb (13.0-17.5) gm/dL MCHC (31.0-37.0) g/dL Neutrophils # (1.3-7.7) k/uL Lymphocytes # (1.0-4.8) k/uL ABG pH (7.35-7.45) ABG pO2 (83-108) mmHg ABG HCO3 (21-25) mmol/L ABG Total CO2 (19-24) mmol/L ABG O2 Saturation (94-97) % Sodium (137-145) mmol/L Chloride (98-107) mmol/L BUN (9-20) mg/dL Creatinine (0.66-1.25) mg/dL Glucose (74-99) mg/dL POC Glucose (mg/dL) 200 H (75-99) mg/dL Procalcitonin (0.02-0.09) ng/mL Assessment and Plan Assessment: Impression: 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 Areflexia, and sensory loss distally. With respiratory failure Right lower lobe pneumonia secondary to Klebsiella pneumonia, ESBL. Bronchoscopy done on 05/18/01, we'll renew Merrem. And will consider bronchoscopy again and right lower lobe lavage. Hematuria, possible bladder malignancy or prostate malignancy being investigated by urology. Chronic atrial fibrillation, presently on heparin. Followed by cardiology. [id number] smoking history. Benign essential hypertension. Type 2 diabetes. Chronic renal failure Failure to wean, patient is scheduled to undergo tracheostomy possibly today. Recurrent right lower lobe collapse and worsening pneumonia, may consider bronchoscopy again on this patient today. Recommendation: Continue ventilatory support Agree with tracheostomy as the patient clearly is a failure to wean. Consider bronchoscopy today and lavage of the right lower lobe. IVIG to continue GI and DVT prophylaxis. Continue enteral feeding. However is presently on hold for tracheostomy. Patient will have also a PEG tube placement hopefully today. Continue Merrem. We will continue to follow Remains critically ill. Patient is not quite ready for weaning trials. critical time is over 30 minutes Time with Patient: Greater than 30
[2021-05-28 11:37] LABS: Glucose,Whole Blood 160 mg/dL (75-99)
[2021-05-28 12:38] VITALS: BMI 30.6
--- NOTE | 2021-05-28 14:11 | P.PN ---
Subjective Progress Note Date: 05/28/21 CHIEF COMPLAINT: Prolonged intubation and an adequate protein intake HISTORY OF PRESENT ILLNESS: The patient is a 70 year old male admitted 05/17/2021 with hematuria, acute respiratory failure and dehydration. He was diagnosed with Guillain-Bergman syndrome. Patient was intubated on 05/17/2021. Patient having fevers temp of 1.7. White count 14.5 hemoglobin 12.9 and platelets 367 sodium 147 potassium 4.1 creatinine 1.33 troponins 0.28. Family has declined tracheostomy and PEG tube placement. Family leaning towards comfort care measures PHYSICAL EXAM: VITAL SIGNS: Reviewed. GENERAL: no acute distress. Intubated and sedated HEENT: Moist buccal mucosa. Head is atraumatic, normocephalic. ABDOMEN: Soft. Nondistended. Nontender. ASSESSMENT: 1. Acute hypoxic respiratory failure with prolonged intubation 2. Guillain-Bergman syndrome 3. 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 Acute fevers with leukocytosis PLAN: -Continue supportive care -Continue ICU management Physician Fuel Cell Engineer note has been reviewed by physician. Signing provider agrees with the documented findings, assessment, and plan of care. Objective - Vital Signs Vital signs: Vital Signs Temp 101.7 F H 05/28/21 12:00 Pulse 108 H 05/28/21 13:00 Resp 37 H 05/28/21 13:00 BP 95/66 05/28/21 13:00 Pulse Ox 91 L 05/28/21 13:00 Intake & Output 05/27/21 05/28/21 05/28/21 18:59 06:59 18:59 Intake Total 3612.384 7230.039 929.063 Output Total 1185 1120 745 Balance 326.810 466.039 184.063 Weight 91.4 kg Intake: IV 443 756 441 Dextrose 5% in Water 1, 300 600 350 000 ml @ 50 mls/hr IV . Q20H [facility] Rx#:[id number] Sodium Chloride 0.9% 1, 110 120 70 000 ml @ 25 mls/hr IV . Q24H [facility] Rx#:[id number] pressure bag .9 33 36 21 Intake, IV Titration 366.810 158.039 71.063 Amount Dextrose 5% in Water 1, 250 000 ml @ 50 mls/hr IV . Q20H [facility] Rx#:[id number] propofoL 1,000 mg In 116.810 158.039 71.063 Empty Bag 1 bag @ Titrate IV .Q0M [facility] Rx#: [id number] Tube Feeding 612 612 357 Other 90 60 60 Output: Urine 1185 1120 745 Other: Voiding Method Indwelling Catheter Indwelling Catheter Indwelling Catheter ABP, PAP, CO, CI - Last Documented Arterial Blood Pressure 102/58 - Labs CBC & Chem 7: 05/28/21 06:28 05/28/21 06:28 Labs: Abnormal Lab Results - Last 24 Hours (Table) 05/27/21 05/27/21 05/28/21 Range/Units 18:06 20:38 00:24 WBC (3.8-10.6) k/uL RBC (4.30-5.90) m/uL Hgb (13.0-17.5) gm/dL MCHC (31.0-37.0) g/dL Neutrophils # (1.3-7.7) k/uL Lymphocytes # (1.0-4.8) k/uL ABG pH (7.35-7.45) ABG pO2 (83-108) mmHg ABG HCO3 (21-25) mmol/L ABG Total CO2 (19-24) mmol/L ABG O2 Saturation (94-97) % Sodium (137-145) mmol/L Chloride (98-107) mmol/L BUN (9-20) mg/dL Creatinine (0.66-1.25) mg/dL Glucose (74-99) mg/dL POC Glucose (mg/dL) 220 H 310 H 245 H (75-99) mg/dL Procalcitonin (0.02-0.09) ng/mL 05/28/21 05/28/21 05/28/21 Range/Units 04:51 05:47 06:28 WBC 14.5 H (3.8-10.6) k/uL RBC 4.22 L (4.30-5.90) m/uL Hgb 12.9 L (13.0-17.5) gm/dL MCHC 30.8 L (31.0-37.0) g/dL Neutrophils # 12.9 H (1.3-7.7) k/uL Lymphocytes # 0.8 L (1.0-4.8) k/uL ABG pH 7.47 H (7.35-7.45) ABG pO2 67 L (83-108) mmHg ABG HCO3 31 H (21-25) mmol/L ABG Total CO2 33 H (19-24) mmol/L ABG O2 Saturation 93.8 L (94-97) % Sodium (137-145) mmol/L Chloride (98-107) mmol/L BUN (9-20) mg/dL Creatinine (0.66-1.25) mg/dL Glucose (74-99) mg/dL POC Glucose (mg/dL) 193 H (75-99) mg/dL Procalcitonin (0.02-0.09) ng/mL 05/28/21 05/28/21 05/28/21 Range/Units 06:28 06:28 08:14 WBC (3.8-10.6) k/uL RBC (4.30-5.90) m/uL Hgb (13.0-17.5) gm/dL MCHC (31.0-37.0) g/dL Neutrophils # (1.3-7.7) k/uL Lymphocytes # (1.0-4.8) k/uL ABG pH (7.35-7.45) ABG pO2 (83-108) mmHg ABG HCO3 (21-25) mmol/L ABG Total CO2 (19-24) mmol/L ABG O2 Saturation (94-97) % Sodium 147 H (137-145) mmol/L Chloride 114 H (98-107) mmol/L BUN 66 H (9-20) mg/dL Creatinine 1.33 H (0.66-1.25) mg/dL Glucose 179 H (74-99) mg/dL POC Glucose (mg/dL) 200 H (75-99) mg/dL Procalcitonin 0.28 H (0.02-0.09) ng/mL 05/28/21 Range/Units 11:35 WBC (3.8-10.6) k/uL RBC (4.30-5.90) m/uL Hgb (13.0-17.5) gm/dL MCHC (31.0-37.0) g/dL Neutrophils # (1.3-7.7) k/uL Lymphocytes # (1.0-4.8) k/uL ABG pH (7.35-7.45) ABG pO2 (83-108) mmHg ABG HCO3 (21-25) mmol/L ABG Total CO2 (19-24) mmol/L ABG O2 Saturation (94-97) % Sodium (137-145) mmol/L Chloride (98-107) mmol/L BUN (9-20) mg/dL Creatinine (0.66-1.25) mg/dL Glucose (74-99) mg/dL POC Glucose (mg/dL) 160 H (75-99) mg/dL Procalcitonin (0.02-0.09) ng/mL
[2021-05-28 17:08] LABS: Glucose,Whole Blood 192 mg/dL (75-99)
--- NOTE | 2021-05-28 18:11 | P.PN ---
Subjective From records Patient is a 70-year-old male with a known history of hypertension, hyperlipidemia, diabetes type 2 insulin-dependent, history of MA status post cardiac catheterization, currently everyday smoker and BPH presented to ER with complaints of left hip pain and also left shoulder pain. Pain gets worse with movement. Patient denies any recent falls. Patient initially presented to ER and had CT abdominal pelvis which showed moderate bilateral hydronephrosis and hydroureter. This could relate to reflux. Appearance not changed compared with exam. Dilated gallbladder increased compared to holograms history of cholecystitis. There are few calcified gallstones. Pancreatic calcifications appear unchanged and consistent with chronic pancreatitis. Sigmoid diverticulosis hypertrophic changes in the urinary bladder similar to old exam. Nodular density at the base of the bladder could be enlarged prostate or bladder mass. Unchanged. Enlarged prostate. There is a 12 mm stellate nodule in the subpleural lateral right lower lobe that appears to be new compared to old exam. Follow-up recommended. X-ray of the shoulder no acute fracture or dislocation. Moderate narrowing and mild to moderate spurring at the acromioclavicular joint is more prominent from prior. Hip x-ray showed mild to moderate degenerative joint disease. Laboratory data showed sodium 135 potassium 4.3 chloride 102 bicarb is 21 BUN 20 and creatinine 1.47 blood sugar is 267 Urinalysis showed large blood nitrate negative and large leukocyte esterase with elevated RBCs and WBCs. WBC 11.5 hemoglobin 14.3 and platelets 277. Coronavirus PCR not detected. 05/13/2021 Patient is currently lying in the bed. Awake alert and still complaining of left lower abdominal pain and hip pain. X-ray of the hip showed mild degenerative changes without acute fracture or dislocation. Overlying soft tissue appears unremarkable. Vascular calcifications noted. Otherwise no acute process identified. Patient admitted on pain management. Urology has seen the patient and recommend outpatient follow-up for cystoscopy. Resume Eliquis at this time. PT OT consult and continue with pain management. Subjective: resuming the care from above 05/14/2021 This is a pleasant 70 years old male who presents on 05/12 for limb pain and inability to walk. Patient complains from weakness in all 4 extremities but more pronounced in the left leg as he states he barely can lift it off the bed. Also he has decreased sensation when examined his left leg. However he complains also to some degree of weakness from all 4 extremities motor he could not move his both arms above his head however passively I could move them up and patient had good tone in his muscles and he could hold them up above his head but then he will drop down once released Patient denies any abdominal pain today and he states that his hematuria has been cleared today back to yellow urine. Patient also feels generally weak and he might need to go to rehab. Patient hematuria problem is not in the room and he has his urologist seen prior to hospitalization and he is supposed to get stress test with drying frame operator this, the Friday as part of preop evaluation. Also patient states that he was on baby aspirin at home but he ran out of it about one week prior to hospitalization. Also he is on Eliquis Patient told me that he has A. fib and that's why he takes Eliquis at home and that has been taking Eliquis and aspirated one week ago Subjective: Resuming the care of the patient again starting to 05/18/2021, after Dr. Jefferson. Patient currently in the ICU intubated and sedated. 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 With pulmonary/critical care team following him closely and help with vent management, today his FiO2 increased 50% up to 8% after pO2 was low 76. Rest of ABG was normal. He remains on PEEP of 8. Also patient is receiving IVIG. Today's the third dose. His lumbar puncture was consistent with his Gullian Juan syndrome with elevated opening up pressure at 30 cm of water . Also RBCs high 118, decreased protein 148, glucose is 104. Nucleated cells/WBC 1 only. Also patient developing low-grade fever and chest x-ray showing marked lower lobe infiltrate and his antibiotics was adjustment today ceftriaxone and to Zosyn. Patient remains critically ill. 05/19/2021 Patient re also he is developing hypotension requiring Levophed however he needs this dose today at 0.06 g per KG per minute. guerita in the ICU in critical condition intubated and sedated with pulmonary/critical care team are following him closely. Patient is developing respiratory failure secondary to his Gullina- Berri syndrome. And the neurology on the case and he is receiving IVIG He is a known case of A. fib on metoprolol and Eliquis, which was changed to he rabia drip because he needed lumbar puncture. Metoprolol was held once he needed Levophed , so today he developed A. fib and RVR which is currently controlled with amiodarone 400 mg twice a day with drying frame operator consulted and recommended echocardiogram. Also patient is on Zosyn for right basal versus bilateral basal pneumonia, also shown on today's chest x-ray. Remains intubated with FiO2 lower today to 55%, remains on PEEP of 8 like yesterday. He has no fever today. Leukocytosis slightly up 12.9, creatinine is stable at 1.4. 05/20/2021 Patient presents with weakness in all extremities motor on the left lower leg and decreased sensation, moved to the ICU on ) monitoring got deteriorated overnight and he had to be intubated because of worsening respiratory status. Neurology was already on the case and were following him closely. patient currently kept monitored in the ICU with pulmonary/critical care team helping with vent management. Also he is receiving IVIG under the kindness of neurology team, distal intubated and sedated which limits his examination. His leukocytosis improved to 8.6 today. Creatinine is stable at 1.4. He had no fever since yesterday. PEEP remains at 8, FiO2 remains at 50%, he is tachypneic. Sputum culture chronic gram-negative bacilli remains on Zosyn empirically pending final results of the culture. Is also an heparin drip just to liquids per drying frame operator. Also IVIG. Also Pepcid. Also his A. fib controlled with amiodarone 400 mg on the top of home dose of metoprolol 50 mg. Subjective: Patient cannot provide information Resuming the care of the patient on 05/23/2021 Patient underwent sedation trial today while he is on propofol with no success since yesterday. patient remains intubated and sedated secondary to his hypoxia and respiratory failure, with pulmonary/critical care team following him closely and help with vent management. He is status post 5 days of IVIG her pulmonary team following him closely as well . He's also on meropenem for ESBL Klebsiella obtained from his bronchoscopy lavage done on 05/18. He still tachypneic and recurrent low-grade fever over 100.4. He has mild leukocytosis of 11.2. Liver enzymes mildly elevated and chest x-ray shows stable perihilar and basal infiltrates. 05/24/2021 Patient is with Gullian Berri syndrome and respiratory failure requiring intubation and mechanical ventilation complicated by ESBL Klebsiella pneumonia on meropenem. He finished his 5 days of IVIG and currently undergoing sedation interruption and holiday by holding his propofol. The meantime he remains on heparin drip for which is wished to Eliquis. Also he is on insulin 20 units at sugar controlled WBC is 10.3, creatinine at baseline 1.3. He has fever of 100.2. FiO2 is 50% and he is tachypneic. 05/25/2021 Patient remains intubated and sedated in the ICU with pulmonary/critical care team following him closely. And help with vent management. Patient undergoing sedation holiday while he is on a propofol. He finished treatment for IVIG and currently being monitored closely. He is also on meropenem for Klebsiella pneumonia. He is still tachycardic, tachypneic and building up low-grade temperature at 100 today. Fungal cultures positive for tawana but chest x-ray showing improving right lo wer lobe infiltrate. His creatinine is 1.38, sodium 147. 05/26/2021 Remains in the ICU with need for mechanical intubation with pulmonary/critical care team help with vent management. Total has fever of 100 and tachypneic and tachycardic. Leukocytosis of 12.6, creatinine 1.2, sodium went up to 149 and patient was placed on D5W. Glucose controlled around 200 while he is on Levemir 23 units at bedtime. Chest x-ray showed slight worsening right more than left. Patient remains on meropenem, Eliquis 05/27/2021 Patient still in critical condition in ICU on mechanical ventilation with pulmonary/critical care team following closely and help in critical management and vent management. They didn't do sedation interruption today because of his intolerance. He states is scheduled for PEG and tracheostomy tomorrow condition of critical care team who consulted surgery team. E is a still tachycardic, tachypneic with low-grade fever and leukocytosis at 16 K, creatinine is stable 1.2 sodium stable but high at 149 and he is on D5W at 50 mL/h, he is on Eliquis. Pulmonary team discontinued his antibiotic meropenem today. We will keep monitoring while off antibiotic and I will order procalcitonin tomorrow 05/28/2021 Patient still in critical condition needing mechanical ventilation with kenia jones/critical care team may turn him on following him closely and help with critical care management. Patient is not undergoing sedation holiday today for pulmonary team. Instead he is planned for PEG tube and tracheostomy placement by surgery team. His fever went up today 201.7, is also tachypneic and tachycardic requiring FiO2 of 80%. His pro-calcitonin is elevated 0.28 therefore we resumed his meropenem 2 g every 8 hours based on his ESBL Klebsiella. Pulmonary team to consider for possible bronchoscopy and lavage. He has leukocytosis 14.5, creatinine 1.3 and sodium 147 while he is on D5W at 50 L per hour History: Eliquis 5 mg. Objective - Vital Signs Vital signs: Vital Signs Temp 99.8 F H 05/28/21 08:00 Pulse 90 05/28/21 10:00 Resp 38 H 05/28/21 10:00 BP 93/66 05/28/21 10:00 Pulse Ox 92 L 05/28/21 10:00 Intake & Output 05/27/21 05/28/21 05/28/21 18:59 06:59 18:59 Intake Total 9421.377 4705.039 486 Output Total 1185 1120 445 Balance 326.810 466.039 41 Intake: IV 443 756 252 Dextrose 5% in Water 1, 300 600 200 000 ml @ 50 mls/hr IV . Q20H [facility] Rx#:[id number] Sodium Chloride 0.9% 1, 110 120 40 000 ml @ 25 mls/hr IV . Q24H [facility] Rx#:[id number] pressure bag .9 33 36 12 Intake, IV Titration 366.810 158.039 Amount Dextrose 5% in Water 1, 250 000 ml @ 50 mls/hr IV . Q20H [facility] Rx#:[id number] propofoL 1,000 mg In 116.810 158.039 Empty Bag 1 bag @ Titrate IV .Q0M [facility] Rx#: [id number] Tube Feeding 612 612 204 Other 90 60 30 Output: Urine 1185 1120 445 Other: Voiding Method Indwelling Catheter Indwelling Catheter Indwelling Catheter ABP, PAP, CO, CI - Last Documented Arterial Blood Pressure 102/58 - Exam -GENERAL: The patient is intubated and sedated HEENT: Pupils are round and equally reacting to light. EOMI. No scleral icterus. No conjunctival pallor. Normocephalic, atraumatic. No pharyngeal erythema. No thyromegaly. CARDIOVASCULAR: S1 and S2 present. No murmurs, rubs, or gallops. PULMONARY: Chest is clear to auscultation, no wheezing or crackles. ABDOMEN: Soft, nontender, nondistended, normoactive bowel sounds. No palpable organomegaly. MUSCULOSKELETAL: No joint swelling or deformity. EXTREMITIES: No cyanosis, clubbing, or pedal edema. -NEUROLOGICAL: Examination is limited by patient intubation. Pupils are equal and reactive to light. No facial asymmetry. Absent reflexes SKIN: No rashes. no petechiae. - Labs CBC & Chem 7: 05/28/21 06:28 05/28/21 06:28 Labs: Abnormal Lab Results - Last 24 Hours (Table) 05/27/21 05/27/21 05/27/21 Range/Units 11:34 18:06 20:38 WBC (3.8-10.6) k/uL RBC (4.30-5.90) m/uL Hgb (13.0-17.5) gm/dL MCHC (31.0-37.0) g/dL Neutrophils # (1.3-7.7) k/uL Lymphocytes # (1.0-4.8) k/uL ABG pH (7.35-7.45) ABG pO2 (83-108) mmHg ABG HCO3 (21-25) mmol/L ABG Total CO2 (19-24) mmol/L ABG O2 Saturation (94-97) % Sodium (137-145) mmol/L Chloride (98-107) mmol/L BUN (9-20) mg/dL Creatinine (0.66-1.25) mg/dL Glucose (74-99) mg/dL POC Glucose (mg/dL) 197 H 220 H 310 H (75-99) mg/dL 05/28/21 05/28/21 05/28/21 Range/Units 00:24 04:51 05:47 WBC (3.8-10.6) k/uL RBC (4.30-5.90) m/uL Hgb (13.0-17.5) gm/dL MCHC (31.0-37.0) g/dL Neutrophils # (1.3-7.7) k/uL Lymphocytes # (1.0-4.8) k/uL ABG pH 7.47 H (7.35-7.45) ABG pO2 67 L (83-108) mmHg ABG HCO3 31 H (21-25) mmol/L ABG Total CO2 33 H (19-24) mmol/L ABG O2 Saturation 93.8 L (94-97) % Sodium (137-145) mmol/L Chloride (98-107) mmol/L BUN (9-20) mg/dL Creatinine (0.66-1.25) mg/dL Glucose (74-99) mg/dL POC Glucose (mg/dL) 245 H 193 H (75-99) mg/dL 05/28/21 05/28/21 05/28/21 Range/Units 06:28 06:28 08:14 WBC 14.5 H (3.8-10.6) k/uL RBC 4.22 L (4.30-5.90) m/uL Hgb 12.9 L (13.0-17.5) gm/dL MCHC 30.8 L (31.0-37.0) g/dL Neutrophils # 12.9 H (1.3-7.7) k/uL Lymphocytes # 0.8 L (1.0-4.8) k/uL ABG pH (7.35-7.45) ABG pO2 (83-108) mmHg ABG HCO3 (21-25) mmol/L ABG Total CO2 (19-24) mmol/L ABG O2 Saturation (94-97) % Sodium 147 H (137-145) mmol/L Chloride 114 H (98-107) mmol/L BUN 66 H (9-20) mg/dL Creatinine 1.33 H (0.66-1.25) mg/dL Glucose 179 H (74-99) mg/dL POC Glucose (mg/dL) 200 H (75-99) mg/dL Assessment and Plan Assessment: 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 Secondary to ESBL Klebsiella Bladder mass versus enlarged prostate. Needs cystoscopy as an outpatient Hypernatremia Chronic A. fib and RVR Bilateral moderate hydronephrosis Hematuria resolved now. Acute urinary tract infection. on antibiotic Hyperglycemia with uncontrolled diabetes type 2 insulin-dependent Hypomagnesemia Hypovolemic hyponatremia Acute kidney injury likely prerenal Chronic kidney disease stage III Paroxysmal atrial fibrillation on anticoagulation with Eliquis Hypertension Hyperlipidemia History of MA status post cardiac catheterization. Plan: This is a pleasant 70 years old male who presents with hematuria and generalized weakness and generalized pain. Left leg weakness and decreased sensation. Continue mechanical ventilation with the help of the pulmonary/critical care team will follow him closely. Continue with sedation trial for pulmonary team status post 5 days of IVIG as per neurology team will follow him closely as well Continue Eliquis due to his history of A. fib. Continue with amiodarone and metoprolol. Cardiology on the case meropenem discontinued by pulmonary team. We will keep monitoring Continue with D5W and monitor sodium level Urology evaluated the patient and recommended cystoscopy and possible TURP as an outpatient and he verbalized understanding and acceptance. The risk of cancer explained Prior to intubation Labs and medication were reviewed.. Continue same treatment. Continue with symptomatic treatment. Resume home medication. Monitor lytes and vitals. DVT and GI prophylaxis. Further recommendations as per clinical course of the patient DVT prophylaxis: On Eliquis GI Prophylaxis: Pepcid PT/OT: deferred Prognosis is guarded
[2021-05-28] MEDS: MEROPENEM 2 GM in SODIUM CHLORIDE 0.9% 100 ML IVPB SCH (20:13)
[2021-05-28] MEDS: ATORVASTATIN 80 MG TAB PO SCH (20:16)
[2021-05-28 20:21] LABS: Glucose,Whole Blood 219 mg/dL (75-99)
[2021-05-28] MEDS ORDERED: INSULIN DETEMIR (LEVEMIR) 100 UNIT/ML SYR SQ SCH (21:00)
[2021-05-29 00:01] LABS: Glucose,Whole Blood 265 mg/dL (75-99)
[2021-05-29] MEDS: MEROPENEM 2 GM in SODIUM CHLORIDE 0.9% 100 ML IVPB SCH ×2 (00:47→08:32)
[2021-05-29] MEDS: INSULIN ASPART (NovoLOG) 100 UNIT/ML VIAL SQ SCH ×4 (00:47→13:25)
[2021-05-29] MEDS: DEXTROSE 5% IN WATER 1,000 ML IV SCH (00:49)
[2021-05-29] MEDS: IPRATROPIUM-ALBUTEROL 3 ML NEB INHALATION SCH ×4 (04:12→15:05)
[2021-05-29 04:58] LABS: Glucose,Whole Blood 215 mg/dL (75-99)
[2021-05-29 05:22] LABS: ABG Base Excess 6.7 mmol/L; ABG HCO3 32 mmol/L (21-25); ABG Oxygen Saturation 91.5 % (94-97); ABG PCO2 51 mmHg (35-45); ABG PO2 63 mmHg (83-108); ABG TCO2 33 mmol/L (19-24); Allen Test Performed? Yes
[2021-05-29 06:36] LABS: Basophils % (A) 0 %; Eosinophils # (A) 0.1 k/uL (0-0.7); Eosinophils % (A) 1 %; HCT 39.1 % (39.0-53.0); HGB 12.4 gm/dL (13.0-17.5); Hypochromasia Slight; Lymphocytes # (A) 0.9 k/uL (1.0-4.8); Lymphocytes % (A) 9 %; MCH 31.3 pg (25.0-35.0); MCHC 31.6 g/dL (31.0-37.0); Monocytes # (A) 0.4 k/uL (0-1.0); Monocytes % (A) 4 %; Neutrophils # (A) 9.3 k/uL (1.3-7.7); Neutrophils % (A) 86 %; Platelet Count 386 k/uL (150-450); RBC 3.95 m/uL (4.30-5.90); RDW 14.1 % (11.5-15.5); WBC 10.8 k/uL (3.8-10.6)
[2021-05-29 06:59] LABS: Potassium 4.1 mmol/L (3.5-5.1)
[2021-05-29 08:17] LABS: Glucose,Whole Blood 280 mg/dL (75-99)
--- NOTE | 2021-05-29 08:31 | XR ---
EXAMINATION TYPE: XR chest 1V portable DATE OF EXAM: 05/29/2021 Comparison: 05/28/2021 Clinical History: 70-year-old male shortness of breath Findings: ET tube satisfactory. NG tube courses below the diaphragm. Left subclavian CVC tip lower SVC. Heart n ormal size. Hyperinflation. Right greater than left bibasilar opacities persist without significant c hange. Impression: Continued COPD with persistent right greater than left basilar consolidation/airspace disease.
[2021-05-29] MEDS: CHLORHEXIDINE GLUCONATE 15 ML CUP MUCOUS MEM SCH (08:32)
[2021-05-29] MEDS: CYANOCOBALAMIN 500 MCG TAB PO SCH (08:32)
[2021-05-29] MEDS: NICOTINE 14MG/24HR PATCH TRANSDERM SCH (08:32)
[2021-05-29] MEDS: AMIODARONE 200 MG TAB PO SCH (08:32)
[2021-05-29] MEDS: METOPROLOL TARTRATE 50 MG TAB PO SCH (08:32)
[2021-05-29] MEDS: PYRIDOXINE 50 MG TAB PO SCH (08:33)
[2021-05-29] MEDS: APIXABAN 5 MG TAB PO SCH (08:33)
[2021-05-29] MEDS: SERTRALINE 50 MG TAB PO SCH (08:33)
[2021-05-29] MEDS: FOLIC ACID 1 MG TAB PO SCH (08:33)
[2021-05-29 09:04] VITALS: TEMP 97.7
[2021-05-29] MEDS: PANTOPRAZOLE 40 MG/10 ML VIAL IVP SCH (09:13)
[2021-05-29 11:31] LABS: Glucose,Whole Blood 173 mg/dL (75-99)
--- NOTE | 2021-05-29 11:54 | P.PN ---
Subjective Progress Note Date: 05/29/21 Principal diagnosis: Guillain-Bergman syndrome, acute hypoxic respiratory failure This is a 70-year-old white male admitted on 05/12/2021, patient was admitted mostly with a chief complaint of bilateral lower extremities weakness left more so than right, and this has been going on for the last 4 weeks. His symptoms have progressed in the last few weeks to develop weakness in the upper extremities, and his speech was also somehow affected. Speech according to him is becoming a bit more slurred, and has been noticing tingling and weakness in the left foot for a while. Over the last 4 weeks, his symptoms have progressively gotten worse. Patient has never received any form of vaccination in the last few years. He is not even vaccinated for COVID-19 infection. Patient denies any history of major medical illnesses although he did have history of coronary artery disease, dyslipidemia, diabetes, hypertension, and previous DC. Patient has also been complaining of bloody urine, and new onset urinary incontinence. CT of the abdomen and pelvis showed bladder mass, possibl e possible malignancy patient was seen by urology, and planning cystoscopy on outpatient basis. At any rate the patient was seen yesterday by the neurologist for his neurological symptoms, and he raised the possibility of Guillain-Bergman syndrome. Patient had MRI of the brain and MRI of the cervical spine, his MRI of the brain is unremarkable. However his MRI of the cervical spine questioned non-enhancing lesion in the upper thoracic spine measuring 1.8 cm favoring focal syrinx. However the neurologist reviewed the MRI of the cervical spine, and he felt that this is mostly artifactual. And clearly stated in his note that his symptoms are not related to the syrinx. In addition he recommended starting the patient on IVIG, and he also recommended lumbar spine to be done tomorrow in the meantime his anticoagulation therapy is on hold. Pulmonary-white, patient describes minimal shortness of breath, no cough no wheezing no fever no chills, no hemoptysis and no chest pain. Considering his symptoms and considering the neurologist concern about possible Guillain-Bergman syndrome, patient was stressed to the ICU yesterday, and I have instructed the respirator therapy to perform nif monitoring on this patient. Patient was reevaluated today on 05/17/2021, ration had a deteriorating clinical course last night, patient developed a picture of hypoxic respiratory failure with worsening pulmonary status last night. I was notified about the patient, he was extremely congested, he had a very weak cough, and his saturations were down in the 70s even on a nonrebreather mask. Recommended immediate intubation of the patient, however I was told that the patient was DO NOT RESUSCITATE CODE STATUS. Then I recommended at least placing the patient on BiPAP, and placed on Precedex for extreme agitation. Apparently overnight the CODE STATUS was changed to full code, I was not notified about the change in the CODE STATUS. I saw this patient this morning today, his respiratory status he is deteriorating, and does not seem to be doing well with BiPAP. Then I recommended again immediate intubation. Patient was intubated, placed on mechanical ventilation, he is now on assist control rate of 30 tidal volume 400 FiO2 on the percent and PEEP of 8. Patient was also noted to be hypotensive, on norepinephrine, and he is on 0.15 mcg/kg/m. Placed on propofol at 75 mcg/kg/m, fluid boluses were given. Went ahead and placed a left subclavian central line, and right brachial arterial line was also placed. Anesthesia is to perform lumbar puncture on this patient sometime today. Chest x-ray post intubation and post left subclavian central line showed adequate placement of the lines and endotracheal tube, significant bibasilar atelectasis and possibly a small left pleural effusion no zurdo. ABG is pending. Reevaluated today on 05/18/2021, patient remains in the ICU, intubated and mec hanically ventilated. However patient was noted to develop worsening chest x- ray and the right lower lobe collapse/atelectasis, and intermittently we have been increasing his FiO2 with worsening chest x-ray, hence I recommended bronchoscopy today and he underwent a bronchoscopy with bronchoalveolar lavage of the right middle lobe, right lower lobe, and a mucous plugs worse suctioned out of the airway especially on the right side. Procedure was well-tolerated, and the plan is to go down on his FiO2. He was initially on 50%, we had to increase his FiO2 up to 80%. He is now back on assist control mode of mechanical ventilation rate 30 tidal volume 430 FiO2 I 50% and PEEP of 8. ABG showed a pO2 of 76 pCO2 of 38 pH of 7.35. Peak airway pressure is 26 blood pressure is 23. Patient remains on multiple drips including norepinephrine, propofol, 45 mcg/kg/m, he is also on norepinephrine at 7 mcg/m, IV fluid at 75 mL per hour in the form of 0.9 normal saline. Patient continues to have per sistent hematuria. Chest x-ray as noted above showed mostly right lower lobe collapse. And atelectasis. 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 Patient remains on IVIG. Patient is receiving enteral feeding in the form of vital HPI at 14 mL per hour. Considering the worsening of his pulmonary status today, patient was not felt to be ideal to consider weaning or to assess off sedation. Reevaluated today on 05/19/2021, patient remains in the ICU, intubated and mechanically ventilated. Patient is on assist control rate of 3 to tidal volume is 430 FiO2 of 65% and PEEP of 8. ABG showed a pO2 of 98 pCO2 of 50 pH of 7.26. Hence I increased the rate to 34, I have also cut down the FiO2 to 55%, PEEP at 8. And tidal volumes the same. Patient remains on propofol at 25 mcg/kg/m, he is also on norepinephrine at 0.06 mcg/kg/m. Amiodarone at 0.5, patient had atrial fibrillation with RVR yesterday, he is known to have history of chronic atrial fibrillation. He is also on heparin drip. Patient is on vital HPI at 24 mL per hour. Chest x-ray is showing significant improvement in his right lower lobe atelectasis/possible pneumonia. Remains on antibiotics, cultures from his bronchoscopy and BAL are pending. WBC count is 4.9 hemoglobin is 12.2. PTT is therapeutic at 58. Electrolytes are normal, renal profile is improving with a BUN of 33 creatinine 1.46. Blood sugar is 171. Reevaluated today on 05/20/2021, patient remains in the ICU, intubated and mechanically ventilated. Patient is on assist control rate of 34, tidal volume 430 FiO2 55% and a cardiac down to 50% today, he is on a PEEP of 8. ABG showed a pO2 of 126 pCO2 of 39 pH of 7.37. Patient is sedated, he is on propofol at 45 mcg/kg/m, he is on heparin for his atrial fibrillation he is on vital HPI at 24 mL/h/goal his IV fluid is at 75 mL per hour and I cut it down to KVO mostly because his chest x-ray is showing mild interstitial edema, and airspace disease bilaterally. Patient will be given a dose of Lasix 40 mg IV push. His WBC count is 8.6 hemoglobin is 11.1. Chest x-ray showed bibasilar atelectasis/infiltrates, and slight interstitial edema. Patient was awakened yesterday, and he was appropriate, followed simple instructions according to the nurse. His BAL from the right lower lobe and right middle lobe is showing gram- negative bacilli, and many polymorphonuclear leukocytes. Final identification is pending. Patient is empirically on Zosyn. Renal functioning is steadily improving, creatinine today is 1.20, this was as high as 1.55 only 4 days ago Progress note dated 05/27/2021. 70-year-old male seen in room 251. The patient has a history of respiratory failure, and was admitted with a diagnosis of hematuria and dehydration on May 12. The patient came to the intensive care unit 5 days later on May 17, and was intubated on the same day. The patient was evaluated by neurology and was found to have L-G-B syndrome, and he received 5 days of IVIG. The patient has been on the ventilator since being intubated on the . Currently, the patient is on volume assist control, rate of 34, tidal volume 4:30, FiO2 of 80%, and PEEP of 8 blood gases show a PaO2 of 62, pCO2 48, and a pH is 7.44. The patient's currently receiving D5W at 50 mL an hour, propofol at 15 mcg/kg/m, and vital high protein at 51 mL an hour, which is goal. Yesterday, the patient went on pressure support and CPAP at 10 and 5 respectively, for about 5 hours. Towards the end, he was doing poorly, and is quite tachypneic. White count 16.5, hemoglobin 12.8, hematocrit 41, and platelet count 319,000. Sodium 149, potassium 4.2, chlorides 114, CO2 29, anion gap 6, BUN 61, and creatinine 1.29. Calcium is 9. Chest x-ray shows some bibasilar atelectasis and consolidation. There is some mild interstitial changes as well. Reevaluated today on 05/28/2021, patient remains in the ICU, intubated and mechanically ventilated. He is now on assist control rate of 34 tidal volume 430 FiO2 80% PEEP of 10. ABG showed a pO2 of 67 pCO2 of 43 pH of 7.47 chest x- ray is showing significant bibasilar infiltrates/atelectasis, right more so than left. Patient has been diagnosed as having ESBL Klebsiella pneumonia infection involving the right lower lobe from his previous bronchoscopy and BAL. Hence I'm renewing his Merrem for his right lower lobe pneumonia, and I'm considering a right lower lobe lavage again as the patient is demonstrating significant worsening in his chest x-ray today. Patient is scheduled to undergo tracheosto my today. And I'm setting him up to have declined as well as removal of his central line from the left IJ. His electrolytes are normal sodium is 147 bit elevated, BUN is 66 creatinine is 1.33 WBC count is 14.9, hemoglobin is 12.9. Chest x-ray as noted above, patient remains on propofol at 35 mcg/kg/m, IV fluid at KVO, and his vital HPI is presently on hold as the patient is scheduled to undergo tracheostomy today because of failure to wean. Reevaluated today on 03/28/2022, patient remains intubated and mechanically ventilated, he is an assist-control of 34 FiO2 80% tidal volume 430 PEEP of 10. ABG today showed a pO2 of 63 pCO2 51 pH of 7.40. Chest x-ray continues to show right lower lobe infiltrate/consolidation. I was planning to arrange for bronchoscopy on this patient, however after discussing his condition with the family yesterday, his CODE STATUS was changed to possible comfort care sometime today. All labs were reviewed including his basic metabolic profile, renal profile, and CBC. His medications were all reviewed. Patient remains on vital HPI, he is also on propofol. My understanding in the family is coming in today, and planning to proceed with comfort care measures and terminal weaning on this patient. Objective - Vital Signs Vital signs: Vital Signs Temp 97.7 F 05/29/21 08:00 Pulse 102 H 05/29/21 11:24 Resp 35 H 05/29/21 11:00 BP 102/72 05/29/21 11:00 Pulse Ox 92 L 05/29/21 11:00 Intake & Output 05/28/21 05/29/21 05/29/21 18:59 06:59 18:59 Intake Total 4496.330 8480.9 733.25 Output Total 1190 1085 550 Balance 381.984 742.9 183.25 Weight 91.4 kg 85.8 kg Intake: IV 756 925.9 300 Dextrose 5% in Water 1, 600 600 250 000 ml @ 50 mls/hr IV . Q20H [facility] Rx#:[id number] Meropenem 2 gm In Sodium 199.9 Chloride 0.9% 100 ml @ 33 .3 mls/hr IVPB Q8HR [facility] Rx#:[id number] Sodium Chloride 0.9% 1, 120 120 50 000 ml @ 25 mls/hr IV . Q24H [facility] Rx#:[id number] pressure bag .9 36 6 Intake, IV Titration 113.984 200 178.25 Amount Meropenem 2 gm In Sodium 100 Chloride 0.9% 100 ml @ 33 .3 mls/hr IVPB Q8HR [facility] Rx#:[id number] propofoL 1,000 mg In 113.984 200 78.25 Empty Bag 1 bag @ Titrate IV .Q0M [facility] Rx#: [id number] Tube Feeding 612 612 255 Other 90 90 Output: Urine 1190 1085 550 Other: Voiding Method Indwelling Catheter Indwelling Catheter Indwelling Catheter ABP, PAP, CO, CI - Last Documented Arterial Blood Pressure 102/58 - Exam Physical Exam revealed a 70-year-old white male intubated, not in distress. Sedated. Head: Atraumatic, normocephalic. Endotracheal tube and orogastric tube are intact. HEENT:[Neck is supple.] [No neck masses.] [No thyromegaly.] [No JVD.] Chest: [Symmetrical chest expansion crackles at the bases. Diminished breath sounds on the right side. Cardiac: Irregular irregular rhythm, normal S1 and S2,, no S3 gallop, no murmur. Abdomen: [Soft, nontender, no megaly, no rebound, no guarding, normal bowel sounds.] Extremities: [No clubbing, no edema, no cyanosis.] Neurological Exam: Cannot assess, patient is sedated, intubated. Psychiatric: Cannot assess patient is sedated and intubated. Skin: No rashes. - Labs CBC & Chem 7: 05/29/21 05:41 05/29/21 05:41 Labs: Abnormal Lab Results - Last 24 Hours (Table) 05/28/21 05/28/21 05/29/21 Range/Units 17:07 20:20 00:00 WBC (3.8-10.6) k/uL RBC (4.30-5.90) m/uL Hgb (13.0-17.5) gm/dL Neutrophils # (1.3-7.7) k/uL Lymphocytes # (1.0-4.8) k/uL ABG pCO2 (35-45) mmHg ABG pO2 (83-108) mmHg ABG HCO3 (21-25) mmol/L ABG Total CO2 (19-24) mmol/L ABG O2 Saturation (94-97) % Sodium (137-145) mmol/L Chloride (98-107) mmol/L BUN (9-20) mg/dL Creatinine (0.66-1.25) mg/dL Glucose (74-99) mg/dL POC Glucose (mg/dL) 192 H 219 H 265 H (75-99) mg/dL 05/29/21 05/29/21 05/29/21 Range/Units 04:56 05:02 05:41 WBC 10.8 H (3.8-10.6) k/uL RBC 3.95 L (4.30-5.90) m/uL Hgb 12.4 L (13.0-17.5) gm/dL Neutrophils # 9.3 H (1.3-7.7) k/uL Lymphocytes # 0.9 L (1.0-4.8) k/uL ABG pCO2 51 H (35-45) mmHg ABG pO2 63 L (83-108) mmHg ABG HCO3 32 H (21-25) mmol/L ABG Total CO2 33 H (19-24) mmol/L ABG O2 Saturation 91.5 L (94-97) % Sodium (137-145) mmol/L Chloride (98-107) mmol/L BUN (9-20) mg/dL Creatinine (0.66-1.25) mg/dL Glucose (74-99) mg/dL POC Glucose (mg/dL) 215 H (75-99) mg/dL 05/29/21 05/29/21 05/29/21 Range/Units 05:41 08:16 11:30 WBC (3.8-10.6) k/uL RBC (4.30-5.90) m/uL Hgb (13.0-17.5) gm/dL Neutrophils # (1.3-7.7) k/uL Lymphocytes # (1.0-4.8) k/uL ABG pCO2 (35-45) mmHg ABG pO2 (83-108) mmHg ABG HCO3 (21-25) mmol/L ABG Total CO2 (19-24) mmol/L ABG O2 Saturation (94-97) % Sodium 148 H (137-145) mmol/L Chloride 112 H (98-107) mmol/L BUN 73 H (9-20) mg/dL Creatinine 1.44 H (0.66-1.25) mg/dL Glucose 222 H (74-99) mg/dL POC Glucose (mg/dL) 280 H 173 H (75-99) mg/dL Microbiology - Last 24 Hours (Table) 05/18/21 11:20 Acid Fast Bacilli Smear - Final Bronchial Washings - Right Acid Fast Bacilli Culture - Preliminary Assessment and Plan Assessment: Impression: 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 Areflexia, and sensory loss distally. With respiratory failure Right lower lobe pneumonia secondary to Klebsiella pneumonia, ESBL. Bronchoscopy done on 05/18/01, we'll renew Merrem. And will consider bronchoscopy again and right lower lobe lavage. Hematuria, possible bladder malignancy or prostate malignancy being investigated by urology. Chronic atrial fibrillation, presently on heparin. Followed by cardiology. [id number] smoking history. Benign essential hypertension. Type 2 diabetes. Chronic renal failure Failure to wean, patient is scheduled to undergo tracheostomy possibly today. Recurrent right lower lobe collapse and worsening pneumonia, may consider bronchoscopy again on this patient today. Recommendation: Continue ventilatory support, will likely pursue terminal weaning sometime later today when the family is around. Canceled plans for tracheostomy PEG tube and bronchoscopy. Remains critically ill. Prognosis is poor, and after discussing his status with family yesterday, daughter prefers comfort care measures and will proceed as such. critical time is over 30 minutes Time with Patient: Greater than 30
[2021-05-29] MEDS ORDERED: MORPHINE SULFATE 4 MG/ML SYRINGE IV PRN (14:11)
[2021-05-29] MEDS ORDERED: MORPHINE SULFATE 4 MG/ML SYRINGE IVP ONE (14:11)
[2021-05-29] MEDS ORDERED: LORazepam 2 MG/ML INJ IV PRN (14:11)
[2021-05-29] MEDS ORDERED: MORPHINE SULFATE (100 MG/2 ML) 100 MG in SODIUM CHLORIDE 0.9% 100 ML IV SCH (14:15)
[2021-05-29] MEDS ORDERED: SCOPOLAMINE 1.5MG/72HR PATCH TRANSDERM SCH (14:30)
--- NOTE | 2021-05-29 15:13 | P.PN ---
Subjective Progress Note Date: 05/29/21 CHIEF COMPLAINT: Prolonged intubation and an adequate protein intake HISTORY OF PRESENT ILLNESS: The patient is a 70 year old male admitted 05/17/2021 with hematuria, acute respiratory failure and dehydration. He was diagnosed with Guillain-Bergman syndrome. Patient was intubated on 05/17/2021. Family has declined tracheostomy and PEG tube placement. Family leaning towards comfort care measures PHYSICAL EXAM: VITAL SIGNS: Reviewed. GENERAL: no acute distress. Intubated and sedated HEENT: Moist buccal mucosa. Head is atraumatic, normocephalic. ABDOMEN: Soft. Nondistended. Nontender. ASSESSMENT: 1. Acute hypoxic respiratory failure with prolonged intubation 2. Guillain-Bergman syndrome 3. 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 Acute fevers with leukocytosis PLAN: -Continue supportive care -Continue ICU management Physician Woods Overseer note has been reviewed by physician. Signing provider agrees with the documented findings, assessment, and plan of care. Objective - Vital Signs Vital signs: Vital Signs Temp 97.7 F 05/29/21 08:00 Pulse 96 05/29/21 13:00 Resp 34 H 05/29/21 13:00 BP 98/68 05/29/21 13:00 Pulse Ox 92 L 05/29/21 13:00 Intake & Output 05/28/21 05/29/21 05/29/21 18:59 06:59 18:59 Intake Total 6622.656 6356.9 955.25 Output Total 1190 1085 750 Balance 381.984 742.9 205.25 Weight 91.4 kg 85.8 kg Intake: IV 756 925.9 420 Dextrose 5% in Water 1, 600 600 350 000 ml @ 50 mls/hr IV . Q20H [facility] Rx#:[id number] Meropenem 2 gm In Sodium 199.9 Chloride 0.9% 100 ml @ 33 .3 mls/hr IVPB Q8HR [facility] Rx#:[id number] Sodium Chloride 0.9% 1, 120 120 70 000 ml @ 25 mls/hr IV . Q24H [facility] Rx#:[id number] pressure bag .9 36 6 Intake, IV Titration 113.984 200 178.25 Amount Meropenem 2 gm In Sodium 100 Chloride 0.9% 100 ml @ 33 .3 mls/hr IVPB Q8HR [facility] Rx#:[id number] propofoL 1,000 mg In 113.984 200 78.25 Empty Bag 1 bag @ Titrate IV .Q0M [facility] Rx#: [id number] Tube Feeding 612 612 357 Other 90 90 Output: Urine 1190 1085 750 Other: Voiding Method Indwelling Catheter Indwelling Catheter Indwelling Catheter ABP, PAP, CO, CI - Last Documented Arterial Blood Pressure 102/58 - Labs CBC & Chem 7: 05/29/21 05:41 05/29/21 05:41 Labs: Abnormal Lab Results - Last 24 Hours (Table) 05/28/21 05/28/21 05/29/21 Range/Units 17:07 20:20 00:00 WBC (3.8-10.6) k/uL RBC (4.30-5.90) m/uL Hgb (13.0-17.5) gm/dL Neutrophils # (1.3-7.7) k/uL Lymphocytes # (1.0-4.8) k/uL ABG pCO2 (35-45) mmHg ABG pO2 (83-108) mmHg ABG HCO3 (21-25) mmol/L ABG Total CO2 (19-24) mmol/L ABG O2 Saturation (94-97) % Sodium (137-145) mmol/L Chloride (98-107) mmol/L BUN (9-20) mg/dL Creatinine (0.66-1.25) mg/dL Glucose (74-99) mg/dL POC Glucose (mg/dL) 192 H 219 H 265 H (75-99) mg/dL 05/29/21 05/29/21 05/29/21 Range/Units 04:56 05:02 05:41 WBC 10.8 H (3.8-10.6) k/uL RBC 3.95 L (4.30-5.90) m/uL Hgb 12.4 L (13.0-17.5) gm/dL Neutrophils # 9.3 H (1.3-7.7) k/uL Lymphocytes # 0.9 L (1.0-4.8) k/uL ABG pCO2 51 H (35-45) mmHg ABG pO2 63 L (83-108) mmHg ABG HCO3 32 H (21-25) mmol/L ABG Total CO2 33 H (19-24) mmol/L ABG O2 Saturation 91.5 L (94-97) % Sodium (137-145) mmol/L Chloride (98-107) mmol/L BUN (9-20) mg/dL Creatinine (0.66-1.25) mg/dL Glucose (74-99) mg/dL POC Glucose (mg/dL) 215 H (75-99) mg/dL 05/29/21 05/29/21 05/29/21 Range/Units 05:41 08:16 11:30 WBC (3.8-10.6) k/uL RBC (4.30-5.90) m/uL Hgb (13.0-17.5) gm/dL Neutrophils # (1.3-7.7) k/uL Lymphocytes # (1.0-4.8) k/uL ABG pCO2 (35-45) mmHg ABG pO2 (83-108) mmHg ABG HCO3 (21-25) mmol/L ABG Total CO2 (19-24) mmol/L ABG O2 Saturation (94-97) % Sodium 148 H (137-145) mmol/L Chloride 112 H (98-107) mmol/L BUN 73 H (9-20) mg/dL Creatinine 1.44 H (0.66-1.25) mg/dL Glucose 222 H (74-99) mg/dL POC Glucose (mg/dL) 280 H 173 H (75-99) mg/dL Microbiology - Last 24 Hours (Table) 05/18/21 11:20 Acid Fast Bacilli Smear - Final Bronchial Washings - Right Acid Fast Bacilli Culture - Preliminary
[2021-05-29 17:05] VITALS: BP 92/72; PULSE 123; RESP 29
--- NOTE | 2021-05-29 19:26 | P.DS ---
Providers Date of admission: 05/12/21 14:56 Attending physician: Alia Archibald Consults: 05/12/21 14:57 Consult Physician Routine Consulting Provider: Yanick Kathleen Consult Reason/Comments: Hematuria, possible bladder mass Do you want consulting provider notified?: Yes 05/14/21 11:02 Consult Physician Routine Consulting Provider: Chance Lim Consult Reason/Comments: left leg weakness and decrease sensation Do you want consulting provider notified?: Yes 05/15/21 13:51 Consult to Anesthesia Stat Consulting Provider: Anesthesia,Services Consult Reason/Comments: Progrssive weakness, probable GBS 05/15/21 16:23 Consult Physician Routine Consulting Provider: Freddy Gonzalez Consult Reason/Comments: ICU management Do you want consulting provider notified?: Already Contacted 05/18/21 22:25 Consult Physician Routine Consulting Provider: Brandon Plata Consult Reason/Comments: A-fib RVR Do you want consulting provider notified?: Yes, Notify in am 05/27/21 10:16 Consult Physician Routine Consulting Provider: Barrera Cormier Consult Reason/Comments: trach and peg Do you want consulting provider notified?: Yes [facility]: Diagnoses: 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 Secondary to ESBL Klebsiella Bladder mass versus enlarged prostate. Needs cystoscopy as an outpatient Hypernatremia Chronic A. fib and RVR Bilateral moderate hydronephrosis Hematuria resolved now. Acute urinary tract infection. on antibiotic Hyperglycemia with uncontrolled diabetes type 2 insulin-dependent Hypomagnesemia Hypovolemic hyponatremia Acute kidney injury likely prerenal Chronic kidney disease stage III Paroxysmal atrial fibrillation on anticoagulation with Eliquis Hypertension Hyperlipidemia History of ND status post cardiac catheterization. Hospital course: Patient is a 70-year-old male with a known history of hypertension, hyperlipidemia, diabetes type 2 insulin-dependent, history of ND status post cardiac catheterization, currently everyday smoker and BPH presented to ER with complaints with pain and weakness and decreased sensation in all 4 extremities, found to have Guillain-Bergman syndrom, his been evaluated by neurologist and received treatment of IVIG 5 days, however his respiratory status deteriorated and patient had to be moved to the ICU where he got intubated. His hospital course has been complicated by ESBL Klebsiella which is been treated with meropenem patient is followed closely also by neurology service and pulmonary/critical care team and despite treatment and several attempts for weaning trial patient could not, off the vent, pulmonary team are planning to do bronchoscopy today and also plan for PEG tube and tracheostomy placement however family decided comfort care measures today and eventually patient on the same day. Please refer to the nurse for more details Exam prior to expiration GENERAL: The patient is intubated and sedated HEENT: Pupils are round and equally reacting to light. EOMI. No scleral icterus. No conjunctival pallor. Normocephalic, atraumatic. No pharyngeal erythema. No thyromegaly. CARDIOVASCULAR: S1 and S2 present. No murmurs, rubs, or gallops. PULMONARY: Chest is clear to auscultation, bilateral crepitation ABDOMEN: Soft, nontender, nondistended, normoactive bowel sounds. No palpable organomegaly. MUSCULOSKELETAL: No joint swelling or deformity. EXTREMITIES: No cyanosis, clubbing, or pedal edema. NEUROLOGICAL: Gross neurological examination did not reveal any focal deficits. SKIN: No rashes. no petechiae. Patient Condition at Discharge: Fair Plan - Discharge Summary Discharge Rx Participant: No New Discharge Prescriptions: No Action Metoprolol Tartrate [Lopressor] 50 mg PO BID Atorvastatin Calcium [Lipitor] 80 mg PO HS Apixaban [Eliquis] 5 mg PO BID traMADol HCl [Ultram] 50 mg PO TID PRN PRN Reason: Pain Sertraline [Zoloft] 50 mg PO DAILY Insulin Detemir (Levemir) [Levemir] 15 unit SQ BID INSULIN ASPART (NovoLOG) [NovoLOG (formulary)] 5 unit SQ AC-BID Tamsulosin [Flomax] 0.4 mg PO BID Sulfamethox-Tmp 800-160Mg [Bactrim DS 800-160 mg] 1 tab PO BID Discharge Medication List Apixaban [Eliquis] 5 mg PO BID 05/26/20 [History] Atorvastatin Calcium [Lipitor] 80 mg PO HS 05/26/20 [History] Metoprolol Tartrate [Lopressor] 50 mg PO BID 05/26/20 [History] INSULIN ASPART (NovoLOG) [NovoLOG (formulary)] 5 unit SQ AC-BID 05/12/21 [History] Insulin Detemir (Levemir) [Levemir] 15 unit SQ BID 05/12/21 [History] Sertraline [Zoloft] 50 mg PO DAILY 05/12/21 [History] Sulfamethox-Tmp 800-160Mg [Bactrim DS 800-160 mg] 1 tab PO BID 05/12/21 [History] Tamsulosin [Flomax] 0.4 mg PO BID 05/12/21 [History] traMADol HCl [Ultram] 50 mg PO TID PRN 05/12/21 [History] Follow up Appointment(s)/Referral(s): Yanick Kathleen MD [STAFF PHYSICIAN] - 4 Weeks Gabriel Boyle DO [Primary Care Provider] - 1-2 days
[2021-05-29] MEDS ORDERED: MEROPENEM 2 GM in SODIUM CHLORIDE 0.9% 100 ML IVPB SCH (21:00)
== END 2021-05-29 21:09 | disposition expired | DRG 94 ==
LOC: EC 10:18 → 4SSUR 14:56 → 2SICU 05-15 16:30
PROVIDERS: ADMIT Internal Medicine; ATTEND Internal Medicine
PROC: 6A551Z3 Pheresis of Plasma, Multiple (ICD-10-PCS; principal; 2021-05-17)
PROC: 009U3ZX Drainage of Spinal Canal, Percutaneous Approach, Diagnostic (ICD-10-PCS; 2021-05-17)
PROC: 03HY32Z Insertion of Monitoring Device into Upper Artery, Percutaneous Approach (ICD-10-PCS; 2021-05-17)
PROC: 5A1955Z Respiratory Ventilation, Greater than 96 Consecutive Hours (ICD-10-PCS; 2021-05-18)
PROC: 0BH17EZ Insertion of Endotracheal Airway into Trachea, Via Natural or Artificial Opening (ICD-10-PCS; 2021-05-18)
PROC: 0BC68ZZ Extirpation of Matter from Right Lower Lobe Bronchus, Via Natural or Artificial Opening Endoscopic (ICD-10-PCS; 2021-05-18)
PROC: 0BC58ZZ Extirpation of Matter from Right Middle Lobe Bronchus, Via Natural or Artificial Opening Endoscopic (ICD-10-PCS; 2021-05-18)
PROC: 0BC38ZZ Extirpation of Matter from Right Main Bronchus, Via Natural or Artificial Opening Endoscopic (ICD-10-PCS; 2021-05-18)
PROC: 3E033XZ Introduction of Vasopressor into Peripheral Vein, Percutaneous Approach (ICD-10-PCS; 2021-05-19)
DX: G61.0 Guillain-Barre syndrome (principal); J96.01 Acute respiratory failure with hypoxia; J15.0 Pneumonia due to Klebsiella pneumoniae; Q79.59 Other congenital malformations of abdominal wall; Q79.3 Gastroschisis; Q79.2 Exomphalos; N13.6 Pyonephrosis; K86.1 Other chronic pancreatitis; E87.1 Hypo-osmolality and hyponatremia; N17.9 Acute kidney failure, unspecified; T17.590A Other foreign object in bronchus causing asphyxiation, initial encounter; J98.11 Atelectasis; Z16.12 Extended spectrum beta lactamase (ESBL) resistance; N02.9 Recurrent and persistent hematuria with unspecified morphologic changes; Z99.11 Dependence on respirator [ventilator] status; E87.0 Hyperosmolality and hypernatremia; Z20.822 Contact with and (suspected) exposure to COVID-19; Z51.5 Encounter for palliative care; Z66 Do not resuscitate; M25.512 Pain in left shoulder; M54.32 Sciatica, left side; M18.30 Unilateral post-traumatic osteoarthritis of first carpometacarpal joint, unspecified hand; N40.0 Benign prostatic hyperplasia without lower urinary tract symptoms; E86.1 Hypovolemia; R31.9 Hematuria, unspecified; I25.10 Atherosclerotic heart disease of native coronary artery without angina pectoris; E11.65 Type 2 diabetes mellitus with hyperglycemia; I48.0 Paroxysmal atrial fibrillation; E11.22 Type 2 diabetes mellitus with diabetic chronic kidney disease; C67.9 Malignant neoplasm of bladder, unspecified; F17.210 Nicotine dependence, cigarettes, uncomplicated; E86.0 Dehydration; E83.42 Hypomagnesemia; I12.9 Hypertensive chronic kidney disease with stage 1 through stage 4 chronic kidney disease, or unspecified chronic kidney disease; E78.5 Hyperlipidemia, unspecified; E87.70 Fluid overload, unspecified; I25.2 Old myocardial infarction; K21.9 Gastro-esophageal reflux disease without esophagitis; R29.2 Abnormal reflex; K57.30 Diverticulosis of large intestine without perforation or abscess without bleeding; I95.9 Hypotension, unspecified; R00.0 Tachycardia, unspecified; M62.81 Muscle weakness (generalized); K80.20 Calculus of gallbladder without cholecystitis without obstruction; M19.90 Unspecified osteoarthritis, unspecified site; W19.XXXA Unspecified fall, initial encounter; N18.30 Chronic kidney disease, stage 3 unspecified; Y95 Nosocomial condition; Z79.01 Long term (current) use of anticoagulants; Z79.899 Other long term (current) drug therapy; Z83.3 Family history of diabetes mellitus; Z88.1 Allergy status to other antibiotic agents
CPT/HCPCS: 31624; 36415; 36600; 70553; 71045; 72156; 73502; 74177; 80048; 80053; 81001; 82040; 82042; 82085; 82150; 82164; 82550; 82607; 82746; 82784; 82805; 82945; 83036; 83605; 83690; 83735; 83873; 83916; 83921; 84132; 84145; 84157; 84165; 84207; 84425; 84443; 84484; 85025; 85027; 85610; 85652; 85730; 86038; 86140; 86334; 86618; 87040; 87070; 87075; 87077; 87086; 87102; 87116; 87186; 87205; 87206; 87252; 87496; 87498; 87502; 87529; 87634; 87635; 87798; 87801; 88108; 88305; 89050; 93005; 94002; 94003; 94640; 94660; 94664; 96365; 96375; 99285